=== PATIENT | male | born 1945 | race Caucasian/White ===

== ENCOUNTER → 2017-02-09 | Outpatient (CLI) | payer OTHER ==
[2017-02-09 14:34] LABS: HCT 42.5 % (39.0-53.0); HDW 2.55; HGB 13.9 gm/dL (13.0-17.5); MCH 28.8 pg (25.0-35.0); MCHC 32.6 g/dL (31.0-37.0); MCV 88.3 fL (80.0-100.0); Mean Platelet Volume 6.6; RBC 4.81 m/uL (4.30-5.90); RDW 14.1 % (11.5-15.5); WBC 7.3 k/uL (3.8-10.6)
[2017-02-09 14:43] LABS: Anion Gap 11 mmol/L; Blood Urea Nitrogen 25 mg/dL (9-20); Calcium 10.1 mg/dL (8.4-10.2); Carbon Dioxide 26 mmol/L (22-30); Chloride 103 mmol/L (98-107); Glucose 95 mg/dL (74-99); Non-African American GFR(MDRD) 50 (>60 ml/min/1.73 sqM); Potassium 5.5 mmol/L (3.5-5.1); Sodium 140 mmol/L (137-145)
== END | disposition home or self-care (01) ==
LOC: LABWHC1 14:17
PROVIDERS: ATTEND Internal Medicine Interventional Cardiology
DX: I25.10 Atherosclerotic heart disease of native coronary artery without angina pectoris (principal); I10 Essential (primary) hypertension
CPT/HCPCS: 36415; 80048; 85027

== ENCOUNTER 2017-02-12 07:23 | Day surgery (SDC) | payer OTHER ==
[2017-02-12] MEDS ORDERED: NITROGLYCERIN SL TABS 0.4 MG TAB SUBLINGUAL PRN (09:58)
[2017-02-12] MEDS ORDERED: SODIUM CHLORIDE 0.9% 1,000 ML in EMPTY BAG 1 BAG IV ONE (09:58)
[2017-02-12] MEDS ORDERED: ASPIRIN 325 MG TAB PO STA (09:58)
[2017-02-12] MEDS ORDERED: ALPRAZolam 0.25 MG TAB PO PRN (09:58)
[2017-02-12] MEDS ORDERED: MIDAZOLAM 2 MG/2 ML VIAL IV ONE (11:00)
[2017-02-12] MEDS ORDERED: diphenhydrAMINE 50 MG/ML 1 ML VIAL IVP ONE (11:01)
[2017-02-12] MEDS ORDERED: IV FLUID CONTINUATION 1,000 ML IV ONE ×2 (11:02→12:00)
[2017-02-12] MEDS ORDERED: LIDOCAINE 2% INJ 20 MG/ML SQ ONE (11:02)
[2017-02-12] MEDS ORDERED: NITROGLYCERIN SL TABS 0.4 MG TAB SUBLINGUAL ONE (11:06)
[2017-02-12] MEDS ORDERED: NOREPINEPHRIN 4 MG-0.9% NS PMX 4 MG/250 ML ML IV ONE (11:33)
[2017-02-12] MEDS ORDERED: IOHEXOL 350 MG/ML 100 ML BOTTLE INJ ONE ×3 (11:44→12:19)
[2017-02-12] MEDS ORDERED: RX INFO: IV CONTRAST WAS GIVEN 1 EACH MISC MISCELLANE PRN (12:02)
[2017-02-12] MEDS: SODIUM CHLORIDE 0.9% 1,000 ML IV SCH (15:41)
--- NOTE | 2017-02-12 20:02 | XR ---
EXAMINATION TYPE: XR chest 2V DATE OF EXAM: 02/12/2017 COMPARISON: NONE HISTORY: Preop cardiac surgery TECHNIQUE: Frontal and lateral views of the chest are obtained. FINDINGS: There is no heart failure nor confluent pneumonic infiltrate. Heart size is normal. Thorac ic aorta is atheromatous. There are no hilar masses. There is no pleural effusion. Bony thorax is int act. IMPRESSION: No active cardiopulmonary disease.
[2017-02-12] MEDS: MUPIROCIN 2% OINT 22 GM TUBE NASAL SCH (20:16)
[2017-02-12 20:42] VITALS: BMI 24.0
--- NOTE | 2017-02-12 23:23 | CC ---
DATE OF SERVICE: 02/12/2017 PROCEDURE: Left heart catheterization, coronary angiography. PERFORMED BY: Dr. Sandra Avila CLINICAL INFORMATION: Mr. 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 He has autonomic dysfunction, has been on Midodrine. He has hypertension and hypercholesterolemia. He has been having symptoms suggestive of angina. He was scheduled to have an arch study at [facility] because of bilateral carotid disease, and he used to be under the care of Dr. Wilson and then went on to see a surgeon in the [facility] area. Because of symptoms of angina, I advised coronary angiography and requested Dr. Spivey to perform selective carotid injections as well. He was brought in for the procedure electively, orally hydrated as well as with IV, and brought in for the procedure. PROCEDURE NOTE: Under local anesthesia and strict aseptic precautions, a 6 Macedonian introducer was placed in the right femoral artery. Using standard Bandar catheters, I performed coronary angiography, and a pigtail catheter was used to check LV pressures. Left ventriculogram was not performed. The sheath was left. Patient developed some hypotension requiring some IV fluids and transient use of Levophed. Patient does have autonomic dysfunction and does have episodes of hypotension. Results were then discussed with the patient and family. CARDIAC CATHETERIZATION FINDINGS: The left ventricular end-diastolic pressure was 8 mmHg. There was no gradient across the aortic valve. CORONARY ANGIOGRAPHIC FINDINGS RIGHT CORONARY ARTERY: Dominant vessel, moderately calcified. It has a 40% proximal and a 40% to 50% mid lesion; distally bifurcates into larger PLV, smaller PDA, both of which supply a fair amount of myocardium. Calcified RCA. Moderate noncritical disease. LEFT MAIN CORONARY ARTERY. There is a question of ostial disease, but on multiple angiograms I do not see significant ostial disease. But distally there is about a 40% narrowing of the left main and it bifurcates into LAD and circumflex. There is calcification in the left main. It bifurcates into LAD and circumflex. LEFT ANTERIOR DESCENDING CORONARY ARTERY. This is a good-caliber vessel, extends along the anterior wall, moderate to heavy calcification proximally with 70% lesion, and after the diagonal branch there is another 70% lesion. The diagonal itself has an 80% lesion. LAD runs all the way to the apex, has mild irregularities throughout, gives off septal and diagonal branches. The proximal LAD has a 70% calcified lesion. Mid LAD has another 70% lesion. Diagonal has an 80% lesion. LEFT POSTERIOR CIRCUMFLEX CORONARY ARTERY: Technically a non-dominant vessel. Gives off a single first obtuse marginal that has a 90% stenosis. The main circumflex has a 50% to 60% narrowing, heavy calcification in the proximal portion noted. Second obtuse marginal is also of good caliber and distribution and graftable. LEFT VENTRICULOGRAM: This was not performed. FINAL IMPRESSION: This patient has a right-dominant system, normal filling pressures, a 70% proximal in mid LAD and diagonal has an 80% lesion. Circumflex has a first obtuse marginal lesion of 90% and second obtuse marginal has about a 60% lesion. Heavily calcified coronary arteries are noted. LV pressures are normal, but LV gram was not performed. RECOMMENDATIONS: I am recommending aortocoronary bypass surgery with a graft to LAD, diagonal, first and second obtuse marginal branches, possibly to the right coronary artery. Patient will have an arch study by Dr. Spivey. I used the least amount of contrast. He was well hydrated, and he will be hydrated after the procedure as well. Results were discussed with the patient and family. I also spoke to Dr. Dela Cruz. Moderate conscious sedation was provided for a total duration of 45 minutes. Patient was monitored closely with a combination of Versed and Benadryl. He tolerated the procedure well and there was transient hypotension addressed with a transient use of Levophed. Patient's pressure normalized and he went on to have an arch study.
--- NOTE | 2017-02-12 23:46 | PCN ---
DATE OF PROCEDURE: 02/12/2017 PERFORMING PHYSICIAN: Yaniv Spivey M.D., [employer]. PROCEDURES PERFORMED: 1. Aortic arch angiogram. 2. Bilateral carotid angiogram. INDICATION: This is a pleasant 71-year-old gentleman who sees Dr. Sandra Avila as an outpatient. He was found to have carotid disease by carotid duplex study. The procedure today is for better clarification. APPROACH: Right common femoral artery. COMPLICATIONS: None. LEVEL OF SEDATION: Moderate. PROCEDURE DESCRIPTION: I did these procedures after Dr. Avila did heart catheterization on this gentleman. Please refer to the diagnostic heart catheterization for access. LEVEL OF SEDATION: Moderate, with sedation length of 25 minutes. PROCEDURE DESCRIPTION: After diagnostic heart catheterization was performed by Dr. Sandra Avila, I was asked to perform an carotid angiogram on the patient. At that point, I advanced a 6 Zimbabwean pigtail catheter over an 0.035 Advantage wire to the aortic root. I did an aortic root angiogram using the 6 Zimbabwean pigtail catheter and using a power injection. After that I did selective bilateral carotid angiogram. Selective right carotid angiogram was performed using JB2 catheter, and selective left carotid angiogram was performed using a Hannon catheter. The procedure was completed without any complication. SELECTIVE ARCH AND CAROTID ANGIOGRAM: 1. The aortic arch is a type II aortic arch. It gives rise to the innominate artery, left carotid and left subclavian. 2. Right carotid system. The right common carotid artery appeared to be angiographically normal. The right internal carotid artery appeared to have a lesion that seemed to be in the range of 70% to 80%. The left external carotid artery appeared to have mild disease only. 3. Left carotid system. The left common carotid artery appeared to have disease in the range of 50%. The left internal carotid artery has another lesion that seemed to be in the range of 50%. The left external carotid artery appeared to be angiographically normal. CONCLUSION: 1. Type II aortic arch. 2. Severe disease involving the right internal carotid artery. 3. Intermediate disease involving the left common carotid artery and left internal carotid artery. POST-PROCEDURE MANAGEMENT: 1. At this point, maximize medical treatment. 2. The patient will need to have revascularization down the line either before or after the open heart surgery.
[2017-02-13 05:35] VITALS: RESP 17
[2017-02-13] MEDS: SODIUM CHLORIDE 0.9% 1,000 ML IV SCH (05:54)
[2017-02-13 06:19] LABS: Basophils % (A) 1 %; CH 29.8; Eosinophils # (A) 0.8 k/uL (0-0.7); Eosinophils % (A) 12 %; HCT 37.6 % (39.0-53.0); HDW 2.69; HGB 12.7 gm/dL (13.0-17.5); Luc # (Auto) 0.18; Luc % (Auto) 3; Lymphocytes # (A) 1.3 k/uL (1.0-4.8); Lymphocytes % (A) 19 %; MCH 28.9 pg (25.0-35.0); MCHC 33.9 g/dL (31.0-37.0); MCV 85.5 fL (80.0-100.0); Mean Platelet Volume 6.6; Monocytes # (A) 0.3 k/uL (0-1.0); Monocytes % (A) 5 %; Neutrophils % (A) 61 %; RDW 13.6 % (11.5-15.5); WBC 6.6 k/uL (3.8-10.6); WBC (Perox) 7.01
[2017-02-13] MEDS ORDERED: LEVOTHYROXINE 112 MCG TAB PO SCH (06:30)
[2017-02-13 06:32] LABS: ALT 43 U/L (21-72); AST 25 U/L (17-59); Alkaline Phosphatase 52 U/L (38-126); Anion Gap 9 mmol/L; Blood Urea Nitrogen 22 mg/dL (9-20); Calcium 9.3 mg/dL (8.4-10.2); Carbon Dioxide 26 mmol/L (22-30); Chloride 103 mmol/L (98-107); Cholesterol 113 mg/dL (<200); Glucose 89 mg/dL (74-99); HDL Cholesterol 50 mg/dL (40-60); Magnesium 1.7 mg/dL (1.6-2.3); Non-African American GFR(MDRD) 50 (>60 ml/min/1.73 sqM); Potassium 4.6 mmol/L (3.5-5.1); Sodium 138 mmol/L (137-145); Total Bilirubin 0.4 mg/dL (0.2-1.3); Total Protein 5.9 g/dL (6.3-8.2); Triglycerides 142 mg/dL (<150)
[2017-02-13 07:33] LABS: INR 1.2 (<1.1); Partial Thromboplastin Time 25.8 sec (22.0-30.0); Prothrombin Time 11.6 sec (9.0-12.0)
[2017-02-13 07:57] LABS: Hepatitis B Core IgM Index 0.02; Hepatitis B Surface Ag Index 0.04; Hepatitis C Virus IgG Ab Negative (Negative); Hepatitis C Virus IgG Index 0.05
--- NOTE | 2017-02-13 07:57 | P.GSCN ---
History of Present Illness Consult date: 02/12/17 Reason for Consult: coronary artery disease, need for surgical revascularization. Requesting physician: Morgan Avila History of present illness: This 71-year-old gentleman has been followed by Dr. LUIGI Avila. He is also under the care of a vascular surgeon in [place] for bilateral carotid artery disease. He was scheduled to have an arch study, however he began having increasing chest discomfort suggestive of angina. Patient was admitted for heart catheterization which demonstrated RCA with 40% proximal and 40-50% mid lesion,left main with 40% narrowing, proximal LAD with 70% lesion with an additional 70% lesion after the diagonal branch, diagonal has 80% lesion, first obtuse marginal with 90% stenosis, and main circumflex with 50-60% narrowing. Arch study done immediately following the heart catheterization demonstrated a type II aortic arch, severe disease involving the right internal carotid artery , and intermediate disease involving the left common carotid artery and left internal carotid artery.Dr. Dela Cruz from cardiothoracic surgery was consulted for possible surgical revascularization. Review of Systems 14 point review of systems was completed and was negative except as noted. - Cardiovascular Reports as per HPI Past Medical History Past Medical History: Cancer, Chest Pain / Angina, Hearing Disorder / Deafness, Hyperlipidemia, Hypertension Additional Past Medical History / Comment(s): throat cancer stage 4 2005 with chemo and radiation History of Any Multi-Drug Resistant Organisms: None Reported Past Surgical History: Heart Catheterization, Hernia Repair Additional Past Surgical History / Comment(s): bilateral shoulder replacement, three sinus surgical procedures-polypectomy. radical neck dissection post tonsillar cancer Past Anesthesia/Blood Transfusion Reactions: No Reported Reaction Past Psychological History: No Psychological Hx Reported Smoking Status: Former smoker Past Alcohol Use History: Occasional Past Drug Use History: None Reported - Past Family History Father Family Medical History: Cancer Mother Family Medical History: Congestive Heart Failure (CHF) Medications and Allergies Home Medications Medication Instructions Recorded Confirmed Type Aspirin 162 mg PO DAILY 02/12/17 02/12/17 History Atorvastatin [Lipitor] 20 mg PO DAILY 02/12/17 02/12/17 History Fluticasone Nasal [place] [Flonase 1 spray EA NOSTRIL DAILY 02/12/17 02/12/17 History Nasal [place]] Levothyroxine Sodium [Synthroid] 112 mcg PO ONCE 02/12/17 02/12/17 History Losartan [Cozaar] 50 mg PO DAILY 02/12/17 02/12/17 History Midodrine HCl [ProAmatine] 5 mg PO ONCE 02/12/17 02/12/17 History amLODIPine BESYLATE [Norvasc] 5 mg PO DAILY 02/12/17 02/12/17 History Allergies Allergy/AdvReac Type Severity Reaction Status Date / Time No Known Allergies Allergy Unverified 07/27/15 08:15 Surgical - Exam Vital Signs Pulse Resp BP Pulse Ox 70 20 157/91 98 02/12/17 09:03 02/12/17 09:03 02/12/17 09:03 02/12/17 09:03 - General well developed, well nourished, no distress, no pain - Eyes PERRL, normal ocular movement - ENT no hearing loss - Neck trachea midline - Respiratory respirations even, nonlabored. Remains on room air with oxygen saturation 97%. Able to achieve 2750 mL on his incentive spirometry. normal expansion, normal respiratory effort, clear to auscultation - Cardiovascular Rhythm: regular Heart Sounds: normal: S1, S2 - Abdomen Abdomen: soft, non tender, bowel sounds - Genitourinary deferred - Rectum deferred - Integumentary no rash, no growths - Neurologic normal coordination, normal sensation - Musculoskeletal normal gait - Psychiatric oriented to time, oriented to person, oriented to place, speech is normal, memory intact Results - Labs 02/13/17 05:22 02/13/17 05:22 Abnormal Lab Results - Last 24 Hours (Table) 02/13/17 02/13/17 Range/Units 05:22 05:22 Hgb 12.7 L (13.0-17.5) gm/dL Hct 37.6 L (39.0-53.0) % Eosinophils # 0.8 H (0-0.7) k/uL BUN 22 H (9-20) mg/dL Creatinine 1.40 H (0.66-1.25) mg/dL Total Protein 5.9 L (6.3-8.2) g/dL Microbiology - Last 24 Hours (Table) 02/12/17 16:00 Nasal Screen MRSA/MSSA (TAM) - Preliminary Nasal Swab Diabetes panel 02/13/17 Range/Units 05:22 Sodium 138 (137-145) mmol/L Potassium 4.6 (3.5-5.1) mmol/L Chloride 103 (98-107) mmol/L Carbon Dioxide 26 (22-30) mmol/L BUN 22 H (9-20) mg/dL Creatinine 1.40 H (0.66-1.25) mg/dL Glucose 89 (74-99) mg/dL Calcium 9.3 (8.4-10.2) mg/dL AST 25 (17-59) U/L ALT 43 (21-72) U/L Alkaline Phosphatase 52 (38-126) U/L Total Protein 5.9 L (6.3-8.2) g/dL Albumin 3.8 (3.5-5.0) g/dL Triglycerides 142 (<150) mg/dL HDL Cholesterol 50 (40-60) mg/dL Thyroid panel 02/13/17 Range/Units 05:22 TSH 3.420 (0.465-4.680) mIU/L Calcium panel 02/13/17 Range/Units 05:22 Calcium 9.3 (8.4-10.2) mg/dL Albumin 3.8 (3.5-5.0) g/dL Pituitary panel 02/13/17 Range/Units 05:22 Sodium 138 (137-145) mmol/L Potassium 4.6 (3.5-5.1) mmol/L Chloride 103 (98-107) mmol/L Carbon Dioxide 26 (22-30) mmol/L BUN 22 H (9-20) mg/dL Creatinine 1.40 H (0.66-1.25) mg/dL Glucose 89 (74-99) mg/dL Calcium 9.3 (8.4-10.2) mg/dL TSH 3.420 (0.465-4.680) mIU/L Adrenal panel 02/13/17 Range/Units 05:22 Sodium 138 (137-145) mmol/L Potassium 4.6 (3.5-5.1) mmol/L Chloride 103 (98-107) mmol/L Carbon Dioxide 26 (22-30) mmol/L BUN 22 H (9-20) mg/dL Creatinine 1.40 H (0.66-1.25) mg/dL Glucose 89 (74-99) mg/dL Calcium 9.3 (8.4-10.2) mg/dL Total Bilirubin 0.4 (0.2-1.3) mg/dL AST 25 (17-59) U/L ALT 43 (21-72) U/L Alkaline Phosphatase 52 (38-126) U/L Total Protein 5.9 L (6.3-8.2) g/dL Albumin 3.8 (3.5-5.0) g/dL - Imaging Chest x-ray: image reviewed EKG: image reviewed Additional studies: carotid Doppler, lower extremity vein mapping, PFTs reviewed. Assessment and Plan (1) Coronary artery disease Status: Acute (2) Carotid artery disease Status: Acute (3) Hypertension Status: Acute (4) Hyperlipidemia Status: Acute (5) Tobacco dependence in remission Status: Acute (6) History of cancer tonsil Status: Acute (7) History of syncope Status: Acute Plan: 1. Continue aspirin, Lipitor, Norvasc, Cozaar, beta lizz. 2. Preoperative testing completed and reviewed. 3. Preoperative teaching initiated, reinforced. 4. Encourage incentive spirometry use preoperatively. 5. Anticipate coronary artery revascularization soon. Will need carotid artery revascularization as well. 6. Will develop a plan, determine a date for surgery with the patient. Patient will be discharged to return for surgery per Dr. LUIGI Avila. Thank you Dr. Avila for this consult. We look forward to working with you the care of your patient. Time with Patient: Greater than 30
[2017-02-13] MEDS: MUPIROCIN 2% OINT 22 GM TUBE NASAL SCH (08:26)
[2017-02-13 08:31] LABS: Hemoglobin A1C 5.5 % (4.2-6.1)
[2017-02-13 08:36] VITALS: TEMP 97.9
[2017-02-13] MEDS ORDERED: amLODIPine 5 MG TAB PO SCH (09:00)
[2017-02-13] MEDS ORDERED: ATORVASTATIN 20 MG TAB PO SCH (09:00)
[2017-02-13] MEDS ORDERED: FLUTICASONE 50MCG/SPRAY NASAL 16GM EA NOSTRIL SCH (09:00)
[2017-02-13] MEDS ORDERED: ASPIRIN 81 MG CHEW PO SCH (09:00)
[2017-02-13] MEDS ORDERED: LOSARTAN 50 MG TAB PO SCH (09:00)
[2017-02-13 09:03] LABS: Appearance,Urine Clear (Clear); Bilirubin,Urine Negative (Negative); Glucose,Urine (UA) Negative (Negative); Ketones,Urine Negative (Negative); Leukocyte Esterase,Urine Negative (Negative); Nitrite,Urine Negative (Negative); Protein,Urine Negative (Negative); Specific Gravity,Urine 1.009 (1.001-1.035); UA Billing (MACRO vs. MICRO) CHEM; Urobilinogen,Urine <2.0 mg/dL (<2.0)
--- NOTE | 2017-02-13 10:10 | ECHOF ---
Referral Reason:Assess LV function MEASUREMENTS -------- HEIGHT: 175.3 cm WEIGHT: 73.5 kg BP: 157/91 RVIDd: 3.0 cm (< 3.3) IVSd: 1.3 cm (0.6 - 1.1) LVIDd: 4.6 cm (3.9 - 5.3) LVPWd: 1.3 cm (0.6 - 1.1) IVSs: 1.9 cm LVIDs: 2.6 cm LVPWs: 1.9 cm Ao Diam: 3.7 cm (2.0 - 3.7) AV Cusp: 1.9 cm (1.5 - 2.6) LA Diam: 4.1 cm (2.7 - 3.8) MV EXCURSION: 19.436 mm (> 18.000) MV EF SLOPE: 127 mm/s (70 - 150) EPSS: 0.3 cm RAP: 5.00 mmHg RVSP: 21.72 mmHg FINDINGS -------- Sinus rhythm. This was a technically adequate study. This was a technically difficult study with suboptimal apical views. Pt. not able to turn due to recent heart cath. There is mild concentric left ventricular hypertrophy. Overall left ventricular systolic function is normal with, an EF between 60 - 65 %. The right ventricle is normal in size and function. Normal LA size by volume 22+/-6 ml/m2. The right atrium is normal in size. The aortic valve is trileaflet, and appears structurally normal. No aortic stenosis or regurgitation. The mitral valve leaflets are mildly thickened. No mitral regurgitation. Trace tricuspid regurgitation present. There is no evidence of pulmonary hypertension. The right ventricular systolic pressure, as measured by Doppler, is 21.72mmHg. The pulmonic valve was not well visualized. The aortic root size is normal. Normal inferior vena cava with normal inspiratory collapse consistent with estimated right atrial pressure of 5 mmHg. The pericardium is normal. There is no pericardial effusion. CONCLUSIONS -------- 1. Sinus rhythm. 2. Trace tricuspid regurgitation present. 3. There is no evidence of pulmonary hypertension. 4. The right ventricular systolic pressure, as measured by Doppler, is 21.72mmHg. 5. The pulmonic valve was not well visualized. 6. The aortic root size is normal. 7. There is no pericardial effusion. 8. This was a technically difficult study with suboptimal apical views. 9. Pt. not able to turn due to recent heart cath. 10. There is mild concentric left ventricular hypertrophy. 11. Overall left ventricular systolic function is normal with, an EF between 60 - 65 %. 12. Normal LA size by volume 22+/-6 ml/m2. 13. The aortic valve is trileaflet, and appears structurally normal. No aortic stenosis or regurgitation. 14. The mitral valve leaflets are mildly thickened. 15. No mitral regurgitation. LICENSED HOME INSPECTOR: Griffin Yeh RDCS
[2017-02-13 12:35] VITALS: BP 136/81; PULSE 73
--- NOTE | 2017-02-13 15:13 | CONS ---
DATE OF CONSULTATION: This is a 71-year-old gentleman who is apparently going to have multivessel bypass grafting next week. He had a catheterization yesterday. He has a history of hypertension, hyperlipidemia, hypothyroidism. The patient apparently is to be discharged today. He did have a breathing test. His lung functions are excellent and he will do well with surgery. He was a pipe smoker in the past. He apparently has a history of head and neck cancer in the past as well. No allergies. He is doing well. Feeling well. Today answered a number questions for him about the surgery today. He understands he will be coming back from the operating room on ventilator. He realizes that he will not be able to interact initially with anybody but I did explain that as soon as his vital signs are stable and soon as his blood gases and weaning parameters are good we would extubated from mechanical ventilation. He was with his in the room. 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 I believe he is a retired currently. Past medical history is positive for hypertension, hyperlipidemia, hypothyroidism. Surgical history is remote. Social history is positive for previous pipe tobacco use. Did not inhale. No cigarettes. Denies any illicit drug use. Occupational history is that he worked at a [employer] company. Family history is noncontributory. Surgical history is primarily remote as I mentioned. His home medications included amlodipine, aspirin, losartan, atorvastatin, midodrine, levothyroxine, Flonase. No allergies to medications. REVIEW OF SYSTEMS: A twelve-point review of systems is unremarkable. He was evaluated for by cardiac catheterization initially for chest discomfort. Current vital signs are stable. Temperature is 97.9, heart rate 78, respiratory rate 17, blood pressure 103/62, mean 75, room air saturation 97%. Appears in no acute distress. HEENT examination is grossly unremarkable. NECK: Supple. Cardiovascular examination reveals regular rhythm and rate. S1, S2 normal. Lungs reveal clear breath sounds. Breath sounds equal. No wheezes, rhonchi or crackles. Abdomen is soft. Bowel sounds are heard. Extremities are intact. No cyanosis, clubbing, or edema. Skin without rash. Neurologic examination is nonfocal. The spirometry is reviewed. I signed off on it. His FEV1 is 93% of predicted. Unfortunately, the spirometry does not give the RV/TLC ratio or MVV. Based on the FEV1 alone, he is going to do very well post surgery. Medications are reviewed. He got the incentive spirometer in front of him and he knows how to use it. ASSESSMENT: 1. Multivessel coronary artery disease with anticipated bypass grafting next week. 2. History of hypertension. 3. Hypothyroidism. 4. Hyperlipidemia. 5. No history of any intrinsic pulmonary disease. PLAN: Will continue to follow. The patient will have surgery sometime next week. At that time he will be seeing my partner Dr. Castaneda. The patient will be brought back from the operating room on updrafts and also on the ventilator. Once extubated will encourage incentive spirometry. Additional recommendations and suggestions are forthcoming. Prognosis is guarded.
--- NOTE | 2017-02-14 07:50 | DS ---
DATE OF ADMISSION: 02/12/2017 DATE OF DISCHARGE: 02/13/2017 DIAGNOSES: 1. Unstable angina. 2. Bilateral carotid disease with right more than left. 3. Hypertension. 4. Autonomic dysfunction. 5. Hypercholesterolemia. Mr. Tenzin Burgos was brought into the hospital electively for a cardiac catheterization and an arch study. Both of these studies were performed yesterday uneventfully. The least amount of contrast was used. He had mild renal dysfunction. He was appropriately hydrated orally and by IV. His cardiac catheterization revealed significant proximal and mid LAD lesion as well as a diagonal lesion and a circumflex marginal lesion. Right coronary artery had a 40% to 45% calcified lesion and this was a dominant vessel. I recommended aortocoronary bypass surgery with graft to the LAD, diagonal, first and second obtuse marginal branches of circumflex. There was heavy calcification in the coronary arteries. Patient also had arch study performed by Dr. Spivey, which revealed a significant lesion in the right internal carotid. However, since he is asymptomatic from the carotid standpoint and has significant anginal symptoms with coronary disease, I am recommending aortocoronary bypass surgery first. Dr. Dela Cruz has evaluated the patient and he will make arrangements for surgery within the next one week. This morning, the patient is doing well. His right groin is clean and dry. Blood pressure is 110/70, pulse rate is 64 per minute regular. There is no JVD or carotid bruit. S1, S2 with a short systolic murmur audible. Lungs are clear. Abdomen and lower extremity exam unchanged. Right groin is clean and dry. Laboratory data is good. I am recommending that we discontinue Nadolol, use Lopressor 12.5 mg b.i.d., decrease aspirin to 81 mg daily and patient can be discharged whenever he is okayed by Dr. Dela Cruz and a surgery date is fixed. Advised limited activity and not to do any strenuous activity. Carotid intervention will be performed at a later date. Patient at the time of my evaluation is asymptomatic and doing well and I have discussed with him the above outlined plan.
[2017-02-14] MEDS ORDERED: METOPROLOL TARTRATE 25 MG TAB PO SCH (09:00)
--- NOTE | 2017-02-21 16:26 | P.VSCSTY ---
Greater Saphenous Vein Mapping This is bilateral lower extremity greater saphenous vein mapping. Date of service 02/12/2017 Vein quality and ultrasound appearance normal. Vein size groin right 5.0 x 5.4 groin left 5.9 x 6.2 High thigh right 3.9 x 3.5 high thigh left 5.2 x 5.2 Mid thigh right 3.2 x 4.8 mid thigh left 3.5 x 3.7 Above-knee right 3.4 x 4.0 above- knee left 2.8 x 3.3 Below knee right 2.8 x 3.5 below-knee left 2.7 x 3.0 Mid calf right 2.3 x 3.6 mid calf left 2.6 x 2.3 Ankle right 1.9 x 2.9 ankle left 1.9 x 2.4 Impression usable bilateral greater saphenous vein. Ankles both a bit small..
== END 2017-02-13 13:23 | disposition home or self-care (01) ==
LOC: CATHCVL 07:23 → 6SEL 12:20 → CATHCVL 02-13 13:23
PROVIDERS: ATTEND Internal Medicine Interventional Cardiology
DX: I25.110 Atherosclerotic heart disease of native coronary artery with unstable angina pectoris (principal); I65.23 Occlusion and stenosis of bilateral carotid arteries; I12.9 Hypertensive chronic kidney disease with stage 1 through stage 4 chronic kidney disease, or unspecified chronic kidney disease; N18.9 Chronic kidney disease, unspecified; E78.00 Pure hypercholesterolemia, unspecified; R55 Syncope and collapse; R94.31 Abnormal electrocardiogram [ECG] [EKG]; I07.1 Rheumatic tricuspid insufficiency; F45.8 Other somatoform disorders; E78.5 Hyperlipidemia, unspecified; E03.9 Hypothyroidism, unspecified; Z85.89 Personal history of malignant neoplasm of other organs and systems; Z92.21 Personal history of antineoplastic chemotherapy; Z92.3 Personal history of irradiation; Z86.73 Personal history of transient ischemic attack (TIA), and cerebral infarction without residual deficits; H91.90 Unspecified hearing loss, unspecified ear; F17.291 Nicotine dependence, other tobacco product, in remission; Z79.82 Long term (current) use of aspirin; Z79.899 Other long term (current) drug therapy
CPT/HCPCS: 94150; 93306; 93458; 36222; 84481; 83880; 80061; 80053; 80074; 84443; 83036; 83735; 85025; 85610; 85730; 81003; 87070; 87086; 71020; 93970; 99152; 99153 ×6; C1760; C1769 ×3; C1894; J2001; J2250; J1200; Q9967

== ENCOUNTER → 2017-03-13 | Outpatient (CLI) | payer OTHER ==
[2017-03-13 09:59] LABS: CH 28.9; CHCM 33.2; HCT 41.9 % (39.0-53.0); HDW 2.63; HGB 13.6 gm/dL (13.0-17.5); MCH 28.3 pg (25.0-35.0); MCHC 32.4 g/dL (31.0-37.0); MCV 87.4 fL (80.0-100.0); Mean Platelet Volume 6.8; WBC 7.7 k/uL (3.8-10.6)
[2017-03-13 10:07] LABS: Calcium 9.9 mg/dL (8.4-10.2); Magnesium 1.7 mg/dL (1.6-2.3); Potassium 4.7 mmol/L (3.5-5.1); Total Bilirubin 0.5 mg/dL (0.2-1.3); Total Protein 6.8 g/dL (6.3-8.2)
--- NOTE | 2017-03-21 14:39 | P.ARTDOP ---
Arterial Doppler LOWER EXTREMITY ARTERIAL DOPPLER: DATE OF SERVICE: 03/13/2017 Reason for study: Pre-CABG. Doppler waveforms: Multiphasic bilaterally throughout. Pulse volume recording: []. Pressure gradients: Mild bilateral gradients Ankle-brachial indices: 0.92 on the right and 0.85 on the left. Toe pressures: 96 on the right, 87 on the left Impression: Suspect mild bilateral SFA disease. Perfusion pressures quite adequate for healing..
== END | disposition home or self-care (01) ==
LOC: RADUSWWP 08:16
PROVIDERS: ATTEND Surgery
DX: I25.10 Atherosclerotic heart disease of native coronary artery without angina pectoris (principal); E78.5 Hyperlipidemia, unspecified; I10 Essential (primary) hypertension; Z86.73 Personal history of transient ischemic attack (TIA), and cerebral infarction without residual deficits; Z87.891 Personal history of nicotine dependence
CPT/HCPCS: 80053; 83735; 85027; 93922

== ENCOUNTER 2017-03-15 05:49 | Inpatient (IN) | payer OTHER ==
[~2017-03-15 05:49] MED LIST: ALBUMIN HUMAN 25% 50 ML IV ONE; ALBUMIN HUMAN 5% 500 ML IVPB ONE; ASPIRIN 325 MG TAB PO ONE; ATORVASTATIN 10 MG TAB PO ONE; CALCIUM CHLORIDE 100 MG/ML 10 ML SYRINGE IV ONE; CHLORHEXIDINE GLUCONATE 15 ML CUP MUCOUS MEM ONE; CLEVIDIPINE BUTYRATE 25 MG in EMPTY BAG 1 BAG IV ONE; HEPARIN SODIUM 1,000 UN/ML (10ML VL) IV ONE; HEPARIN SODIUM,PORCINE 5,000 UNIT in SODIUM CHLORIDE 0.9% 500 ML IV ONE; INSULIN REGULAR 100 UNIT in SODIUM CHLORIDE 0.9% 100 ML IV ONE; LACTATED RINGERS 1,000 ML IV ONE; LACTATED RINGERS 1,000 ML IV SCH; LIDOCAINE 1% 20 ML VIAL (10MG/ML) FOR IV START INTRADERMA PRN; MAGNESIUM SULFATE MG 500 MG/ML VIAL IV ONE; METOPROLOL TARTRATE 12.5 MG TAB PO ONE; MUPIROCIN 2% OINT 22 GM TUBE NASAL ONE; NITROGLYCERIN-D5W PMX 25 MG/250 ML BTL IV ONE; NOREPINEPHRIN 4 MG-0.9% NS PMX 4 MG/250 ML ML IV ONE; PAPAVERINE 360 MG in SODIUM CHLORIDE 0.9% 90 ML IV ONE; PHENYLEPHRINE 40 MG in SODIUM CHLORIDE 0.9% 250 ML IV ONE; PHENYLEPHRINE-0.9% NACL SYG 1 MG/10 ML SYRINGE IV ONE; PROPOFOL 1,000 MG/100 ML VIAL IV ONE; PROTAMINE SULFATE 10 MG/ML 25 ML VIAL IV ONE; PROTAMINE SULFATE 250 MG in EMPTY BAG 1 BAG IV ONE; SODIUM BICARB 8.4% 50 ML SYR (1 MEQ/ML) IV ONE; SODIUM CHLORIDE 0.9% 1,000 ML IV ONE; ceFAZolin 1,000 MG in SODIUM CHLORIDE 0.9% IRRIGATIO 1,000 ML IRRIGATION ONE; ceFAZolin 2,000 MG in SODIUM CHLORIDE 0.9% 30 ML IVPB ONE
[2017-03-15] MEDS ORDERED: HEPARIN SODIUM,PORCINE 5,000 UNIT/ML 1 ML VIAL ONE (08:17)
[2017-03-15] MEDS ORDERED: VECURONIUM 10 MG VIAL IV ONE (08:17)
[2017-03-15] MEDS ORDERED: ePHEDrine 50 MG/ML 1 ML AMP ONE (08:17)
[2017-03-15] MEDS ORDERED: SUCCINYLCHOLINE CHLORIDE 100 MG/5 ML SYR IV ONE (08:17)
[2017-03-15] MEDS ORDERED: fentaNYL (PF) 50 MCG/ML 2 ML AMP ONE (08:17)
[2017-03-15] MEDS ORDERED: HEPARIN SODIUM,PORCINE 10,000 UNIT/ML 1 ML VIAL ONE (08:17)
[2017-03-15] MEDS ORDERED: SODIUM CHLORIDE 0.9% IRRIG 1,000 ML BTL IRRIGATION ONE (08:17)
[2017-03-15] MEDS ORDERED: PHENYLEPHRINE-0.9% NACL SYG 1 MG/10 ML SYRINGE ONE (08:17)
[2017-03-15] MEDS ORDERED: PROPOFOL 10 MG/ML 20 ML VIAL IV ONE (08:17)
[2017-03-15] MEDS ORDERED: MAGNESIUM SULFATE 4 MEQ/ML 2 ML VIAL ONE (08:17)
[2017-03-15] MEDS ORDERED: PROTAMINE SULFATE 10 MG/ML 5 ML VIAL IV ONE (08:17)
[2017-03-15] MEDS ORDERED: MIDAZOLAM 2 MG/2 ML VIAL ONE (08:17)
[2017-03-15] MEDS ORDERED: ALBUMIN HUMAN 5% 500 ML VIAL IVPB ONE (08:17)
[2017-03-15] MEDS ORDERED: fentaNYL (PF) 50 MCG/ML 50 ML VIAL ONE (08:17)
[2017-03-15 09:15] LABS: Glucose,Whole Blood 96 mg/dL (75-99)
[2017-03-15 10:17] LABS: Glucose,Whole Blood 122 mg/dL (75-99)
[2017-03-15 10:57] LABS: Glucose,Whole Blood 120 mg/dL (75-99)
[2017-03-15 11:12] LABS: Glucose,Whole Blood 121 mg/dL (75-99)
[2017-03-15 12:07] LABS: Glucose,Whole Blood 147 mg/dL (75-99)
[2017-03-15 12:43] LABS: Glucose,Whole Blood 139 mg/dL (75-99)
[2017-03-15 13:16] LABS: Glucose,Whole Blood 120 mg/dL (75-99)
[2017-03-15 13:16] LABS: Glucose,Whole Blood 109 mg/dL (75-99)
[2017-03-15 13:16] LABS: Glucose,Whole Blood 107 mg/dL (75-99)
[2017-03-15 13:42] LABS: Glucose,Whole Blood 124 mg/dL (75-99)
[2017-03-15] MEDS: NITROGLYCERIN-D5W PMX 50 MG in DEXTROSE/WATER 1 250ML.BAG IV ONE ×3 (14:28→18:29)
[2017-03-15] MEDS ORDERED: PROPOFOL 1,000 MG/100 ML VIAL IV SCH (14:31)
[2017-03-15] MEDS ORDERED: ONDANSETRON 4 MG/2 ML VIAL IVP PRN (14:31)
[2017-03-15] MEDS ORDERED: CALCIUM GLUCONATE 2,000 MG in SODIUM CHLORIDE 0.9% 100 ML IVPB PRN (14:31)
[2017-03-15] MEDS ORDERED: INSULIN REGULAR 100 UNIT in SODIUM CHLORIDE 0.9% 100 ML IV SCH ×2 (14:31→18:45)
[2017-03-15] MEDS ORDERED: NOREPINEPHRINE 4 MG in SODIUM CHLORIDE 0.9% 250 ML IV SCH (14:31)
[2017-03-15] MEDS ORDERED: Phosphorus Replacement Protoco 1 EACH MISC MISCELLANE PRN (14:31)
[2017-03-15] MEDS ORDERED: Magnesium Replacement Protocol 1 EACH MISC MISCELLANE PRN (14:31)
[2017-03-15] MEDS ORDERED: BENZOCAINE/MENTHOL LOZENG 1 EACH LOZENGE MUCOUS MEM PRN (14:31)
[2017-03-15] MEDS ORDERED: METOCLOPRAMIDE 5 MG/ML 2 ML VIAL IVP PRN (14:31)
[2017-03-15] MEDS ORDERED: NITROGLYCERIN-D5W PMX 50 MG in DEXTROSE/WATER 1 250ML.BAG IV SCH (14:31)
[2017-03-15] MEDS ORDERED: Potassium Replacement Protocol 1 EACH MISC MISCELLANE PRN ×2 (14:31→19:37)
[2017-03-15 15:10] LABS: Glucose,Whole Blood 149 mg/dL (75-99)
--- NOTE | 2017-03-15 15:14 | XR ---
EXAMINATION TYPE: XR chest 1V portable DATE OF EXAM: 03/15/2017 HISTORY: Post Op CABG COMPARISON: 02/12/2017 TECHNIQUE: Single view of the chest is submitted. FINDINGS: Endotracheal tube, NG tube, SG catheter, mediastianal drains and left chest tube are appropriately pl aced. Post operative changes of CABG. No sizeable pneumothorax. Scattered Pleural-parencymal opacities may reflect atelectasis. The heart is not enlarged. IMPRESSION: 1. Post operative changes of CABG.
[2017-03-15 15:20] LABS: INR 1.7 (<1.2); Partial Thromboplastin Time 43.3 sec (22.0-30.0); Prothrombin Time 16.4 sec (9.0-12.0)
[2017-03-15] MEDS ORDERED: ALBUMIN HUMAN 5% 250 ML IVPB ONE (15:22)
[2017-03-15 15:26] LABS: Basophils % (A) 0 %; CH 30.2; CHCM 34.3; Eosinophils # (A) 0.3 k/uL (0-0.7); Eosinophils % (A) 6 %; HCT 20.3 % (39.0-53.0); HDW 2.84; Luc # (Auto) 0.03; Luc % (Auto) 1; Lymphocytes # (A) 0.7 k/uL (1.0-4.8); Lymphocytes % (A) 15 %; MCH 30.4 pg (25.0-35.0); MCHC 34.4 g/dL (31.0-37.0); MCV 88.3 fL (80.0-100.0); Mean Platelet Volume 8.5; Monocytes # (A) 0.1 k/uL (0-1.0); Monocytes % (A) 2 %; Neutrophils # (A) 3.6 k/uL (1.3-7.7); Neutrophils % (A) 77 %; WBC 4.7 k/uL (3.8-10.6); WBC (Perox) 4.92
[2017-03-15 15:31] LABS: Ionized Calcium 3.7 mg/dL (4.5-5.3)
[2017-03-15] MEDS: LACTATED RINGERS 1,000 ML IV SCH (15:38)
[2017-03-15] MEDS ORDERED: CALCIUM GLUCONATE 2,000 MG in SODIUM CHLORIDE 0.9% 100 ML IVPB ONE (15:41)
[2017-03-15] MEDS: IPRATROPIUM-ALBUTEROL 3 ML NEB INHALATION SCH ×2 (15:42→19:22)
[2017-03-15 15:44] LABS: ALT 18 U/L (21-72); AST 17 U/L (17-59); Alkaline Phosphatase 24 U/L (38-126); Anion Gap 8 mmol/L; Blood Urea Nitrogen 18 mg/dL (9-20); Calcium 6.7 mg/dL (8.4-10.2); Carbon Dioxide 23 mmol/L (22-30); Chloride 109 mmol/L (98-107); Glucose 125 mg/dL (74-99); Magnesium 1.4 mg/dL (1.6-2.3); Non-African American GFR(MDRD) >60 (>60 ml/min/1.73 sqM); Potassium 4.2 mmol/L (3.5-5.1); Sodium 140 mmol/L (137-145); Total Bilirubin 0.7 mg/dL (0.2-1.3); Total Protein 4.2 g/dL (6.3-8.2)
[2017-03-15 15:51] LABS: ABG Base Excess -1.7 mmol/L; ABG HCO3 23 mmol/L (21-25); ABG PCO2 42 mmHg (35-45); ABG PH 7.35 (7.35-7.45); ABG PO2 >400 mmHg (83-108); ABG TCO2 24 mmol/L (19-24)
[2017-03-15 16:03] LABS: Glucose,Whole Blood 156 mg/dL (75-99)
[2017-03-15] MEDS: ceFAZolin 2 GM in SODIUM CHLORIDE 0.9% 100 ML IVPB SCH ×2 (16:09→23:37)
[2017-03-15] MEDS: ALBUMIN HUMAN 5% 250 ML in EMPTY BAG 1 BAG IVPB PRN (16:48)
[2017-03-15 17:03] LABS: Glucose,Whole Blood 147 mg/dL (75-99)
[2017-03-15] MEDS: MORPHINE SULFATE 2 MG/ML SYRINGE IVP PRN ×3 (17:15→23:12)
[2017-03-15] MEDS: CLEVIDIPINE BUTYRATE 25 MG in EMPTY BAG 1 BAG IV SCH (17:30)
--- NOTE | 2017-03-15 18:03 | P.CNPUL ---
History of Present Illness Consult date: 03/15/17 Chief complaint: Coronary artery bypass surgery History of present illness: A 71-year-old male patient who is post coronary artery bypass surgery and I was asked to be involved in the critical care management and vent management. This patient was having increased chest discomfort typical of angina. The patient underwent cardiac catheterization and demonstrated 40% proximal RCA lesion 40-50 % mid RCA lesion, 40% narrowing in the left main, 70% disease in the proximal LAD and 70% diagonal branch, 80% diagonal branch, 90% first of diffuse marginal branch and 5060% in the circumflex. Our study was done and the patient showed to have severe disease involving the right internal carotid artery disease and intermediate disease involving the left common carotid and left internal carotid artery. He is known to have hypertension. Hyperlipidemia. The patient underwent off-pump coronary artery bypass surgery with CASTELLANOS to LAD, saphenous vein graft to diagonal, obtuse marginal and RCA. Currently intubated on a mechanical ventilator and sedated with Diprivan. His assist-control mode of ventilation at the rate of 12, tidal volume 500, FiO2 of 40% and a PEEP of 5. The patient immediate postoperative blood This showed a pH of 7.35 with a pCO2 of 42 and pO2 of 513 and based on that the FiO2 was dropped from 100% on to 40%. His saturation remains around 97%. Chest x-ray shows adequate expansion of both lungs without evidence of any pneumothorax. ET tube is in a good location. The patient has 2 mediastinal chest tubes and 1 pleural chest tube all of them were actively draining since his surgery and his drainage has slowed down over the past few hours. The patient required to be given a total of 2 units of packed RBC intraoperatively, 4 units of fresh frozen plasma and 5 platelet concentrates. The hemoglobin at this point is on 7.0 and the patient is receiving another unit of packed RBC. PA pressures around 30/12 and the cardiac index is 2.7. The patient has received 2, 5% albumin's drapes. Currently the patient is on clevidipine for blood pressure control and insulin drip. Producing adequate amount of urine output. Creatinine is at 1.1. Hemodynamically stable. Ionized calcium was low and the patient was given 2 g of calcium gluconate. Review of Systems ROS unobtainable: due to endotracheal tube Past Medical History Past Medical History: Cancer, Chest Pain / Angina, Hearing Disorder / Deafness, Hyperlipidemia, Hypertension, Renal Disease Additional Past Medical History / Comment(s): On a artery disease details discussed above, carotid artery disease details discussed above, throat cancer diagnosed back in 2006 post chemoradiation therapy, CVA, history of without any major deficits hypertension, hypothyroidism and morbid deafness, normal left ventricular function with an ejection fraction of 60-65% without evidence of any significant pulmonary hypertension or pericardial effusion no valvular abnormalities based on echocardiogram from 2017. History of Any Multi-Drug Resistant Organisms: None Reported Past Surgical History: Heart Catheterization, Hernia Repair Additional Past Surgical History / Comment(s): bilateral rotator cuff repair, three sinus surgical procedures-polypectomy. radical neck dissection post tonsillar cancer Past Anesthesia/Blood Transfusion Reactions: No Reported Reaction Smoking Status: Former smoker - Past Family History Father Family Medical History: Cancer Mother Family Medical History: Congestive Heart Failure (CHF) Medications and Allergies Home Medications Medication Instructions Recorded Confirmed Type Fluticasone Nasal [place] [Flonase 1 spray EA NOSTRIL DAILY 02/12/17 03/15/17 History Nasal [place]] Levothyroxine Sodium [Synthroid] 112 mcg PO DAILY 02/12/17 03/15/17 History Losartan [Cozaar] 50 mg PO DAILY 02/12/17 03/15/17 History Midodrine HCl [ProAmatine] 5 mg PO TID 02/12/17 03/15/17 History amLODIPine BESYLATE [Norvasc] 5 mg PO DAILY PRN 02/12/17 03/15/17 History Atorvastatin [Lipitor] 20 mg PO BID 03/13/17 03/15/17 History Butalb/Acetaminophen/Caffeine 1 - 2 tab PO Q4H PRN 03/13/17 03/15/17 History [Fioricet 50-325-40] Metoprolol Tartrate 25 mg PO BID 03/13/17 03/15/17 History Aspirin 325 mg PO BID 03/15/17 03/15/17 History Allergies Allergy/AdvReac Type Severity Reaction Status Date / Time No Known Allergies Allergy Verified 03/15/17 06:13 Physical Exam Vitals: Vital Signs Temp Pulse Pulse Resp BP BP BP 03/15/17 17:40 90 93/56 03/15/17 17:30 88 93/56 03/15/17 17:20 86 93/56 03/15/17 17:10 92 93/56 03/15/17 17:00 96 16 93/56 03/15/17 16:50 88 93/56 03/15/17 16:40 85 93/56 03/15/17 16:30 82 93/56 03/15/17 16:20 89 93/56 03/15/17 16:10 80 93/56 03/15/17 16:05 92.3 F L 77 12 117/55 03/15/17 16:04 83 03/15/17 16:00 77 16 93/56 03/15/17 15:50 78 82/55 03/15/17 15:42 84 03/15/17 15:40 85 82/55 03/15/17 15:30 80 82/55 03/15/17 15:20 77 03/15/17 15:10 03/15/17 15:00 78 14 03/15/17 14:54 81 03/15/17 14:25 92.7 F L 81 12 119/57 03/15/17 13:55 92.7 F L 75 12 95/48 03/15/17 06:10 96.4 F L 63 16 175/96 170/95 BP Pulse Ox 03/15/17 17:40 98 03/15/17 17:30 98 03/15/17 17:20 98 03/15/17 17:10 93 L 03/15/17 17:00 85 L 03/15/17 16:50 89 L 03/15/17 16:40 94 L 03/15/17 16:30 94 L 03/15/17 16:20 91 L 03/15/17 16:10 93 L 03/15/17 16:05 98 03/15/17 16:04 03/15/17 16:00 98 03/15/17 15:50 99 03/15/17 15:42 03/15/17 15:40 100 03/15/17 15:30 92 L 03/15/17 15:20 03/15/17 15:10 100 03/15/17 15:00 03/15/17 14:54 03/15/17 14:25 98 03/15/17 13:55 98 03/15/17 06:10 175/96 98 Intake and Output 03/15/17 03/15/17 03/15/17 06:59 14:59 22:59 Intake Total 1280 721 Output Total 4950 350 Balance -3670 371 Intake: IV 134 250 Calcium Gluconate 2,000 100 mg In Sodium Chloride 0.9 % 100 ml @ 100 mls/hr IVPB ONCE ONE Rx#: [id number] Lactated Ringers 1,000 ml 50 @ 50 mls/hr IV .Q20H [facility] Rx#:[id number] ceFAZolin 2 gm In Sodium 100 Chloride 0.9% 100 ml @ 100 mls/hr IVPB Q8HR [facility] Rx#:[id number] Blood Product 1146 471 Ffp 24 Cp2d Unit 209 [id number] Ffp 24 Cp2d Unit 178 [id number] Ffp 24 Cpd Unit 317 [id number] Ffp 24 Cpda Unit 0 [id number] Platelet Pheresis Acda1 0 293 Unit [id number] Rc As-1 Unit 310 [id number] Rc As-1 Unit 310 [id number] Rc As-1 Unit 0 [id number] Output: Chest Tube Drainage 200 Left Pleural 180 Mediastinal x 2 20 Gastric Drainage 0 Drainage 0 0 Left Calf 0 0 Right Medial Thigh 0 0 Urine 1500 150 Estimated Blood Loss 3450 ABP, PAP, CO, CI - Last 8 Hours Arterial Blood Pressure 115/50 Arterial Blood Pressure 111/48 Arterial Blood Pressure 119/49 Arterial Blood Pressure 141/58 Arterial Blood Pressure 38/38 Arterial Blood Pressure 153/69 Arterial Blood Pressure 145/61 Arterial Blood Pressure 137/57 Arterial Blood Pressure 139/62 Arterial Blood Pressure 123/58 Arterial Blood Pressure 108/55 Arterial Blood Pressure 94/45 Arterial Blood Pressure 135/61 Arterial Blood Pressure 130/5 Arterial Blood Pressure 88/47 Arterial Blood Pressure 164/77 Arterial Blood Pressure 95/50 Pulmonary Artery Pressure 24/13 Pulmonary Artery Pressure 24/13 Pulmonary Artery Pressure 24/12 Pulmonary Artery Pressure 26/13 Pulmonary Artery Pressure 29/15 Pulmonary Artery Pressure 28/15 Pulmonary Artery Pressure 27/14 Pulmonary Artery Pressure 27/11 Pulmonary Artery Pressure 26/14 Pulmonary Artery Pressure 23/13 Pulmonary Artery Pressure 18/9 Pulmonary Artery Pressure 18/9 Pulmonary Artery Pressure 21/10 Pulmonary Artery Pressure 21/9 Pulmonary Artery Pressure 22/11 Pulmonary Artery Pressure 21/8 Pulmonary Artery Pressure 25/14 Cardiac Output 5.1 Cardiac Output 5.1 Cardiac Output 5.1 Cardiac Output 5.1 Cardiac Output 5.1 Cardiac Output 5.1 Cardiac Output 5.1 Cardiac Output 5.1 Cardiac Output 5.1 Cardiac Output 5.1 Cardiac Output 7.1 Cardiac Output 7.1 Cardiac Output 7.1 Cardiac Output 7.1 Cardiac Output 7.1 Cardiac Output 7.1 Cardiac Output 7.1 Cardiac Index 2.7 Cardiac Index 3.7 Head exam was generally normal. There was no scleral icterus or corneal arcus. Mucous membranes were moist. Neck is supple and the patient has a right IJ Cordis. No neck stiffness. Pupils are equally reactive to light. No facial asymmetry. Orogastric and orotracheal tube are both in place. Lung sounds are diminished bilaterally otherwise clear. There is no wheezes or rhonchi early crackles. Heart sounds are regular, positive S1-S2, sternum stable clean and intact. The patient has 2 mediastinal and 1 left pleural chest tube.Abdominal exam revealed normal bowel sounds. The abdomen was soft, non-tender, and without masses, organomegaly, or appreciable enlargement of the abdominal aorta.Examination of the extremities revealed easily palpable radial, femoral and pedal pulses. There was no cyanosis, clubbing or edema. Neurologically the patient remains sedated. Results - Laboratory Findings CBC and BMP: 03/15/17 15:05 03/15/17 15:05 ABG ABG pH 7.35 (7.35-7.45) 03/15/17 15:28 ABG pCO2 42 mmHg (35-45) 03/15/17 15:28 ABG pO2 >400 mmHg (83-108) H 03/15/17 15:28 ABG O2 Saturation 100.0 % (94-97) H 03/15/17 15:28 PT/INR, D-dimer PT 16.4 sec (9.0-12.0) H 03/15/17 15:05 INR 1.7 (<1.2) H 03/15/17 15:05 Abnormal lab findings: Abnormal Labs 03/13/17 03/15/17 03/15/17 09:07 10:16 10:44 RBC Hgb Hct Plt Count Lymphocytes # PT INR APTT ABG pO2 ABG O2 Saturation Chloride Glucose POC Glucose (mg/dL) 122 H 120 H Calcium Ionized Calcium [place] Magnesium ALT Alkaline Phosphatase Total Protein Albumin Crossmatch See Detail 03/15/17 03/15/1717 11:09 12:05 12:30 RBC Hgb Hct Plt Count Lymphocytes # PT INR APTT ABG pO2 ABG O2 Saturation Chloride Glucose POC Glucose (mg/dL) 121 H 147 H 139 H Calcium Ionized Calcium [place] Magnesium ALT Alkaline Phosphatase Total Protein Albumin Crossmatch 03/15/17 03/15/17 03/15/17 13:06 13:08 13:13 RBC Hgb Hct Plt Count Lymphocytes # PT INR APTT ABG pO2 ABG O2 Saturation Chloride Glucose POC Glucose (mg/dL) 107 H 109 H 120 H Calcium Ionized Calcium [place] Magnesium ALT Alkaline Phosphatase Total Protein Albumin Crossmatch 03/15/17 03/15/17 03/15/17 13:39 15:05 15:05 RBC 2.30 L Hgb 7.0 L* D Hct 20.3 L Plt Count 81 L D Lymphocytes # 0.7 L PT INR APTT ABG pO2 ABG O2 Saturation Chloride 109 H Glucose 125 H POC Glucose (mg/dL) 124 H Calcium 6.7 L Ionized Calcium [place] 3.7 L Magnesium 1.4 L ALT 18 L Alkaline Phosphatase 24 L Total Protein 4.2 L Albumin 2.8 L Crossmatch 03/15/17 03/15/17 03/15/17 15:05 15:08 15:28 RBC Hgb Hct Plt Count Lymphocytes # PT 16.4 H INR 1.7 H APTT 43.3 H ABG pO2 >400 H ABG O2 Saturation 100.0 H Chloride Glucose POC Glucose (mg/dL) 149 H Calcium Ionized Calcium [place] Magnesium ALT Alkaline Phosphatase Total Protein Albumin Crossmatch 03/15/17 03/15/17 16:02 17:02 RBC Hgb Hct Plt Count Lymphocytes # PT INR APTT ABG pO2 ABG O2 Saturation Chloride Glucose POC Glucose (mg/dL) 156 H 147 H Calcium Ionized Calcium [place] Magnesium ALT Alkaline Phosphatase Total Protein Albumin Crossmatch - Diagnostic Findings Chest x-ray: image reviewed Assessment and Plan Plan: Assessment 1 multivessel coronary artery disease and the patient is status post four- vessel coronary artery bypass surgery including CASTELLANOS to LAD. Patient is postop day #0. 2 postoperative anemia due to intraoperative blood loss and active drainage from the chest tubes. The patient received 2 units of packed RBC and the third will be given for a hemoglobin of 7.0. Slightly coagulopathic and the calcium level was also low/INS calcium, the patient has received a total of 4 units of fresh frozen plasma and 2 g of calcium gluconate. The drainage from the chest tubes is noted to decrease over the past 2 hours. No passage of any blood clots. 3 post thoracotomy, currently intubated on a mechanical ventilator in the process of weaning. FiO2 has been drop down to 40% 4 chronic renal failure, creatinine is normal at this point and the patient is producing adequate amount of urine output 5 carotid artery disease, as discussed earlier 6 postoperative hypertension currently on clevidipine drip for blood pressure control 8 hyperlipidemia 9. Hearing 10 throat cancer back in 2005, post chemoradiation therapy Plan Continue monitoring the output from the chest tube. Monitor hemoglobin. Transfuse if hemoglobin is less than 7. In terms of weaning from the mechanical ventilator, this was largely depend on the hemodynamics and hemostasis as the patient had increased output from his chest tubes since arriving from the operating room. Initiate is more stable for now. FiO2 has been drop down to 40%. Being given IV fluids and the patient has been also given 2 ampules of 5% albumin. Urine output is adequate. We'll continue to follow make further recommendations based on his overall clinical progress.
[2017-03-15] MEDS: ACETAMINOPHEN IV (For NPO) 1,000 MG in EMPTY BAG 1 BAG IVPB SCH ×2 (18:27→23:13)
[2017-03-15 18:49] LABS: Basophils % (A) 0 %; CH 31.1; CHCM 34.9; Eosinophils # (A) 0.2 k/uL (0-0.7); Eosinophils % (A) 3 %; HCT 23.1 % (39.0-53.0); HGB 8.2 gm/dL (13.0-17.5); Luc # (Auto) 0.05; Luc % (Auto) 1; Lymphocytes # (A) 0.5 k/uL (1.0-4.8); Lymphocytes % (A) 8 %; MCH 31.8 pg (25.0-35.0); MCHC 35.5 g/dL (31.0-37.0); MCV 89.6 fL (80.0-100.0); Mean Platelet Volume 8.4; Monocytes # (A) 0.3 k/uL (0-1.0); Monocytes % (A) 4 %; Neutrophils # (A) 5.9 k/uL (1.3-7.7); Neutrophils % (A) 85 %; RBC 2.58 m/uL (4.30-5.90); WBC (Perox) 6.79
[2017-03-15 18:52] LABS: Glucose,Whole Blood 154 mg/dL (75-99)
[2017-03-15 18:53] LABS: Ionized Calcium 4.5 mg/dL (4.5-5.3)
[2017-03-15 18:54] LABS: INR 1.4 (<1.2); Partial Thromboplastin Time 33.8 sec (22.0-30.0); Prothrombin Time 13.3 sec (9.0-12.0)
[2017-03-15 19:04] LABS: Anion Gap 10 mmol/L; Blood Urea Nitrogen 18 mg/dL (9-20); Calcium 7.7 mg/dL (8.4-10.2); Carbon Dioxide 24 mmol/L (22-30); Chloride 108 mmol/L (98-107); Glucose 106 mg/dL (74-99); Magnesium 1.5 mg/dL (1.6-2.3); Non-African American GFR(MDRD) >60 (>60 ml/min/1.73 sqM); Phosphorous 2.3 mg/dL (2.5-4.5); Potassium 3.8 mmol/L (3.5-5.1); Sodium 142 mmol/L (137-145)
[2017-03-15] MEDS ORDERED: SODIUM PHOSPHATE 10 MMOL in SODIUM CHLORIDE 0.9% 250 ML IVPB ONE (19:37)
[2017-03-15] MEDS ORDERED: POTASSIUM CHLORIDE 20 MEQ in WATER FOR INJECTION 1 100ML.BAG IVPB ONE (19:37)
[2017-03-15 20:03] LABS: Glucose,Whole Blood 80 mg/dL (75-99)
[2017-03-15] MEDS: MAGNESIUM SULFATE-D5W PMX 1 GM in DEXTROSE/WATER 1 100ML.BAG IVPB SCH ×2 (20:12→21:15)
[2017-03-15 20:51] LABS: ABG Base Excess -1.3 mmol/L; ABG HCO3 23 mmol/L (21-25); ABG PCO2 36 mmHg (35-45); ABG PH 7.41 (7.35-7.45); ABG PO2 171 mmHg (83-108); ABG TCO2 24 mmol/L (19-24)
[2017-03-15 21:09] LABS: Glucose,Whole Blood 73 mg/dL (75-99)
[2017-03-15] MEDS: MUPIROCIN 2% OINT 22 GM TUBE NASAL SCH (21:13)
[2017-03-15 22:04] LABS: Glucose,Whole Blood 128 mg/dL (75-99)
[2017-03-15 22:13] LABS: Basophils % (A) 0 %; CH 30.3; CHCM 34.8; Eosinophils % (A) 1 %; HCT 21.2 % (39.0-53.0); HDW 3.18; HGB 7.5 gm/dL (13.0-17.5); Luc # (Auto) 0.06; Luc % (Auto) 1; Lymphocytes # (A) 0.2 k/uL (1.0-4.8); Lymphocytes % (A) 4 %; MCH 30.7 pg (25.0-35.0); MCHC 35.2 g/dL (31.0-37.0); MCV 87.3 fL (80.0-100.0); Mean Platelet Volume 8.5; Monocytes # (A) 0.3 k/uL (0-1.0); Monocytes % (A) 4 %; Neutrophils # (A) 5.2 k/uL (1.3-7.7); Neutrophils % (A) 90 %; RBC 2.43 m/uL (4.30-5.90); RDW 14.7 % (11.5-15.5); WBC 5.8 k/uL (3.8-10.6); WBC (Perox) 5.93
[2017-03-15 23:02] LABS: Glucose,Whole Blood 116 mg/dL (75-99)
[2017-03-15 23:55] LABS: Glucose,Whole Blood 119 mg/dL (75-99)
[2017-03-16 01:07] LABS: Glucose,Whole Blood 92 mg/dL (75-99)
[2017-03-16 02:11] LABS: Glucose,Whole Blood 95 mg/dL (75-99)
[2017-03-16 03:08] LABS: Glucose,Whole Blood 100 mg/dL (75-99)
[2017-03-16] MEDS: MORPHINE SULFATE 2 MG/ML SYRINGE IVP PRN (03:15)
[2017-03-16 04:04] LABS: Glucose,Whole Blood 140 mg/dL (75-99)
[2017-03-16 04:20] LABS: Basophils % (A) 0 %; CH 31.1; CHCM 35.2; Eosinophils % (A) 0 %; HDW 3.14; HGB 7.7 gm/dL (13.0-17.5); Luc # (Auto) 0.06; Luc % (Auto) 1; Lymphocytes # (A) 0.4 k/uL (1.0-4.8); Lymphocytes % (A) 6 %; MCHC 34.8 g/dL (31.0-37.0); Mean Platelet Volume 9.1; Monocytes # (A) 0.2 k/uL (0-1.0); Monocytes % (A) 4 %; Neutrophils # (A) 5.6 k/uL (1.3-7.7); Neutrophils % (A) 89 %; RBC 2.47 m/uL (4.30-5.90); RDW 15.1 % (11.5-15.5); WBC 6.3 k/uL (3.8-10.6)
[2017-03-16 04:39] LABS: Ionized Calcium 4.4 mg/dL (4.5-5.3)
[2017-03-16 04:46] LABS: ALT 28 U/L (21-72); AST 29 U/L (17-59); Alkaline Phosphatase 35 U/L (38-126); Anion Gap 10 mmol/L; Blood Urea Nitrogen 19 mg/dL (9-20); Calcium 7.8 mg/dL (8.4-10.2); Carbon Dioxide 22 mmol/L (22-30); Chloride 106 mmol/L (98-107); Glucose 124 mg/dL (74-99); Magnesium 1.9 mg/dL (1.6-2.3); Non-African American GFR(MDRD) >60 (>60 ml/min/1.73 sqM); Phosphorous 3.3 mg/dL (2.5-4.5); Potassium 4.7 mmol/L (3.5-5.1); Sodium 138 mmol/L (137-145); Total Bilirubin 1.3 mg/dL (0.2-1.3); Total Protein 5.1 g/dL (6.3-8.2)
[2017-03-16 05:11] LABS: Glucose,Whole Blood 130 mg/dL (75-99)
[2017-03-16] MEDS: ACETAMINOPHEN IV (For NPO) 1,000 MG in EMPTY BAG 1 BAG IVPB SCH ×3 (05:13→17:27)
[2017-03-16 06:13] LABS: Glucose,Whole Blood 107 mg/dL (75-99)
[2017-03-16] MEDS: MAGNESIUM SULFATE-D5W PMX 1 GM in DEXTROSE/WATER 1 100ML.BAG IVPB SCH ×2 (06:15→07:22)
[2017-03-16 06:16] LABS: ABG Base Excess -1.2 mmol/L; ABG HCO3 22 mmol/L (21-25); ABG PCO2 33 mmHg (35-45); ABG PH 7.44 (7.35-7.45); ABG PO2 386 mmHg (83-108); ABG TCO2 23 mmol/L (19-24)
[2017-03-16 06:25] LABS: ABG Base Excess -2.5 mmol/L; ABG HCO3 23 mmol/L (21-25); ABG Oxygen Saturation 99.9 % (94-97); ABG PCO2 48 mmHg (35-45); ABG PH 7.31 (7.35-7.45); ABG PO2 371 mmHg (83-108); ABG TCO2 25 mmol/L (19-24)
[2017-03-16 06:26] LABS: ABG PCO2 42 mmHg (35-45); ABG PH 7.35 (7.35-7.45); ABG PO2 379 mmHg (83-108)
[2017-03-16 06:28] LABS: ABG Base Excess -2.4 mmol/L; ABG HCO3 23 mmol/L (21-25); ABG TCO2 24 mmol/L (19-24)
[2017-03-16 06:43] LABS: ABG Base Excess -2.8 mmol/L; ABG HCO3 21 mmol/L (21-25); ABG PCO2 37 mmHg (35-45); ABG PH 7.38 (7.35-7.45); ABG PO2 412 mmHg (83-108); ABG TCO2 23 mmol/L (19-24)
[2017-03-16 06:44] LABS: ABG Base Excess -4.3 mmol/L; ABG HCO3 21 mmol/L (21-25); ABG Oxygen Saturation 99.9 % (94-97); ABG PCO2 45 mmHg (35-45); ABG PO2 398 mmHg (83-108); ABG TCO2 23 mmol/L (19-24)
[2017-03-16 06:46] LABS: ABG Base Excess -1.2 mmol/L; ABG HCO3 24 mmol/L (21-25); ABG PCO2 42 mmHg (35-45); ABG PH 7.36 (7.35-7.45); ABG PO2 375 mmHg (83-108); ABG TCO2 25 mmol/L (19-24)
[2017-03-16 06:48] LABS: ABG HCO3 22 mmol/L (21-25); ABG Oxygen Saturation 99.9 % (94-97); ABG PCO2 40 mmHg (35-45); ABG PH 7.36 (7.35-7.45); ABG PO2 340 mmHg (83-108); ABG TCO2 23 mmol/L (19-24)
[2017-03-16 07:01] LABS: ABG Base Excess -3.3 mmol/L; ABG HCO3 22 mmol/L (21-25); ABG Oxygen Saturation 81.3 % (94-97); ABG PCO2 49 mmHg (35-45); ABG PH 7.29 (7.35-7.45); ABG PO2 51 mmHg (83-108); ABG TCO2 24 mmol/L (19-24)
[2017-03-16 07:05] LABS: Glucose,Whole Blood 117 mg/dL (75-99)
--- NOTE | 2017-03-16 07:25 | XR ---
EXAMINATION TYPE: XR chest 1V portable DATE OF EXAM: 03/16/2017 COMPARISON: 03/15/2017 INDICATION: Post cardiac surgery TECHNIQUE: Single frontal view of the chest is obtained. FINDINGS: The heart size is normal. The pulmonary vasculature is normal. Mild left lower lobe infiltrate is present. Correlate for atelectasis. This is developing from prior study. No pneumothorax is evident. [place] catheter is present with the tip in the main pulmonary artery r egion. Mediastinal and left sided chest tubes are present. No pneumothorax is evident. IMPRESSION: 1. Increasing left lower lobe retrocardiac infiltrate. Correlate for atelectasis. 2. Lines and catheters discussed above.
[2017-03-16 08:01] LABS: Glucose,Whole Blood 135 mg/dL (75-99)
[2017-03-16] MEDS: ceFAZolin 2 GM in SODIUM CHLORIDE 0.9% 100 ML IVPB SCH (08:17)
[2017-03-16] MEDS: ATORVASTATIN 40 MG TAB PO SCH (08:18)
[2017-03-16] MEDS: METOPROLOL TARTRATE 12.5 MG TAB PO SCH (08:18)
[2017-03-16] MEDS: LEVOTHYROXINE 112 MCG TAB PO SCH (08:19)
[2017-03-16] MEDS: ESOMEPRAZOLE 20 MG in SODIUM CHLORIDE 0.9% 50 ML IVPB SCH (08:19)
[2017-03-16] MEDS: ASPIRIN 81 MG CHEW PO SCH (08:19)
[2017-03-16] MEDS: CLOPIDOGREL 75 MG TAB PO SCH (08:19)
[2017-03-16 08:55] LABS: Glucose,Whole Blood 146 mg/dL (75-99)
[2017-03-16] MEDS ORDERED: ASPIRIN 325 MG TAB PO SCH (09:00)
[2017-03-16] MEDS: MUPIROCIN 2% OINT 22 GM TUBE NASAL SCH ×2 (09:07→21:25)
[2017-03-16 09:40] VITALS: BMI 27.3
[2017-03-16 10:01] LABS: Glucose,Whole Blood 121 mg/dL (75-99)
[2017-03-16 10:54] LABS: Glucose,Whole Blood 106 mg/dL (75-99)
--- NOTE | 2017-03-16 11:39 | P.PN ---
<Ashlyn Worrell - Last Filed: 03/16/17 11:29> Subjective Principal diagnosis: Severe symptomatic multivessel coronary artery disease. Bilateral carotid stenosis. Hypertension. Hyperlipidemia. History of throat cancer with chemo and radiation, status post radical neck dissection. History of tobacco dependence. POD #1 elective off-pump coronary artery bypass graft surgery, left internal mammary artery to the left anterior descending artery, reverse saphenous vein graft to the diagonal artery, reverse saphenous vein graft to the obtuse marginal artery, reverse saphenous vein graft to the right coronary artery. Bilateral lower extremity endoscopic vein harvesting. Epi-aortic scanning. Intraoperative transesophageal echocardiogram. Intraoperative graft flow measurement using the [employer] system. Currently sitting up in a recliner in no acute distress. Was extubated last night. Denies pain, shortness of breath. Had quite a bit of output continues chest tubes last night, received multiple blood products, output diminishing this morning. Objective - Vital Signs Vital signs: Vital Signs Temp 99.5 F 03/16/17 04:00 Pulse 85 03/16/17 08:30 Resp 20 03/16/17 08:30 BP 95/50 03/16/17 08:30 Pulse Ox 97 03/16/17 10:44 Intake & Output 03/15/17 03/16/17 03/16/17 18:59 06:59 18:59 Intake Total 2778 1749.808 468 Output Total 6488 1935 198 Balance -3710 -185.192 270 Weight 84.2 kg 84.2 kg Intake: IV 634 1461 468 ACETAMINOPHEN IV (For NPO 200 ) 1,000 mg In Empty Bag 1 bag @ 400 mls/hr IVPB Q6HR [facility] Rx#:[id number] CO/CI 80 Calcium Gluconate 2,000 100 mg In Sodium Chloride 0.9 % 100 ml @ 100 mls/hr IVPB ONCE ONE Rx#: [id number] Calcium Gluconate 2,000 100 mg In Sodium Chloride 0.9 % 100 ml @ 100 mls/hr IVPB ONCE PRN Rx#: [id number] Lactated Ringers 1,000 ml 300 350 150 @ 20 mls/hr IV .Q24H [facility] Rx#:[id number] Magnesium Sulfate-D5w Pmx 300 100 1 gm In Dextrose/Water 1 100ml.bag @ 100 mls/hr IVPB Q1H [facility] Rx#: [id number] Potassium Chloride 20 meq 100 In Water For Injection 1 100ml.bag @ 50 mls/hr IVPB ONCE ONE Rx#: [id number] Pressure Bag 81 18 Sodium Phosphate 10 mmol 250 In Sodium Chloride 0.9% 250 ml @ 125 mls/hr IVPB ONCE ONE Rx#:[id number] ceFAZolin 2 gm In Sodium 100 100 100 Chloride 0.9% 100 ml @ 100 mls/hr IVPB Q8HR [facility] Rx#:[id number] Intake, IV Titration 24.808 0 Amount Clevidipine Butyrate 25 10 mg In Empty Bag 1 bag @ 1 MG/HR 2 mls/hr IV .Q24H [facility] Rx#:[id number] Insulin Regular 100 unit 14.808 0 In Sodium Chloride 0.9% 100 ml @ Per Protocol IV .Q0M [facility] Rx#:[id number] Oral 120 Blood Product 2144 144 Cryoprecipitate Unit 10 [id number] Cryoprecipitate Unit 10 [id number] Cryoprecipitate Unit 10 [id number] Cryoprecipitate Unit 10 [id number] Cryoprecipitate Unit 10 [id number] Cryoprecipitate Unit 10 [id number] Cryoprecipitate Unit 10 [id number] Cryoprecipitate Unit 10 [id number] Cryoprecipitate Unit 10 [id number] Cryoprecipitate Unit 10 [id number] Ffp 24 Cp2d Unit 209 [id number] Ffp 24 Cp2d Unit 178 [id number] Ffp 24 Cpd Unit 317 [id number] Ffp 24 Cpda Unit 217 [id number] Platelet Pheresis Acda1 293 Unit [id number] Platelet Pheresis Acda2 44 Unit [id number] Rc As-1 Unit 310 [id number] Rc As-1 Unit 310 [id number] Rc As-1 Unit 310 [id number] Output: Chest Tube Drainage 800 810 80 Left Pleural 460 390 50 Mediastinal x 2 340 420 30 Gastric Drainage 0 Drainage 0 40 Left Calf 0 10 Right Medial Thigh 0 30 Urine 2238 1085 118 Estimated Blood Loss 3450 Other: Voiding Method Indwelling Catheter Indwelling Catheter # Bowel Movements 0 0 ABP, PAP, CO, CI - Last Documented Arterial Blood Pressure 137/61 Pulmonary Artery Pressure 20/13 Cardiac Output 6 Cardiac Index 3.2 - Constitutional General appearance: Present: cooperative, no acute distress - Respiratory Details: Lungs sounds diminished bilaterally. Respirations even, nonlabored. Currently on 4 L nasal cannula suction saturation 100%. Able to achieve 1250 mL on his incentive spirometry. Effective cough. Left pleural chest tube to -20 cm wall suction, 330 mL output overnight, 750 mL since surgery. Mediastinal chest tube to -20 cm wall suction, 290 mL output overnight, 850 mL since surgery. No air leaks present. - Cardiovascular Details: S1, S2 present. Regular rate and rhythm, normal sinus rhythm on telemetry. Sternum stable. Heart hugger placed patient demonstrating appropriate use. Teds/SCDs present. No edema present. - Gastrointestinal Gastrointestinal Comment(s): Abdomen soft, nontender, nondistended. Active bowel sounds 4 quadrants. Tolerating diet. - Genitourinary Genitourinary Comment(s): Edwards present draining clear, yellow urine. Output 40-50 mL/hr overnight - Integumentary Integumentary Comment(s): Anterior chest incision well approximated and covered with dry intact dressing. Bilateral lower extremity EVH sites well approximated, CHANDA drains in place with minimal output. - Musculoskeletal Musculoskeletal: Present: strength equal bilaterally - Psychiatric Psychiatric: Present: A&O x's 3, appropriate affect, intact judgment & insight - Allied health notes Allied health notes reviewed: nursing - Labs CBC & Chem 7: 03/16/17 04:05 03/16/17 04:05 Labs: Abnormal Lab Results - Last 24 Hours (Table) 03/13/17 03/15/17 03/15/17 Range/Units 09:07 09:00 10:18 RBC (4.30-5.90) m/uL Hgb (13.0-17.5) gm/dL Hct (39.0-53.0) % Plt Count (150-450) k/uL Lymphocytes # (1.0-4.8) k/uL PT (9.0-12.0) sec INR (<1.2) APTT (22.0-30.0) sec Fibrinogen (200-500) mg/dL ABG pH 7.31 L (7.35-7.45) ABG pCO2 33 L 48 H (35-45) mmHg ABG pO2 386 H 371 H (83-108) mmHg ABG Total CO2 25 H (19-24) mmol/L ABG O2 Saturation 100.0 H 99.9 H (94-97) % ABG Hematocrit 32 L (34.0-46.0) % Chloride (98-107) mmol/L Glucose (74-99) mg/dL POC Glucose (mg/dL) (75-99) mg/dL Calcium (8.4-10.2) mg/dL Ionized Calcium Bonny (4.5-5.3) mg/dL Phosphorus (2.5-4.5) mg/dL Magnesium (1.6-2.3) mg/dL ALT (21-72) U/L Alkaline Phosphatase (38-126) U/L Total Protein (6.3-8.2) g/dL Albumin (3.5-5.0) g/dL Crossmatch See Detail 03/15/17 03/15/17 03/15/17 Range/Units 10:44 11:10 12:05 RBC (4.30-5.90) m/uL Hgb (13.0-17.5) gm/dL Hct (39.0-53.0) % Plt Count (150-450) k/uL Lymphocytes # (1.0-4.8) k/uL PT (9.0-12.0) sec INR (<1.2) APTT (22.0-30.0) sec Fibrinogen (200-500) mg/dL ABG pH (7.35-7.45) ABG pCO2 (35-45) mmHg ABG pO2 379 H 412 H (83-108) mmHg ABG Total CO2 (19-24) mmol/L ABG O2 Saturation 100.0 H 100.0 H (94-97) % ABG Hematocrit 29 L 27 L (34.0-46.0) % Chloride (98-107) mmol/L Glucose (74-99) mg/dL POC Glucose (mg/dL) 147 H (75-99) mg/dL Calcium (8.4-10.2) mg/dL Ionized Calcium Bonny (4.5-5.3) mg/dL Phosphorus (2.5-4.5) mg/dL Magnesium (1.6-2.3) mg/dL ALT (21-72) U/L Alkaline Phosphatase (38-126) U/L Total Protein (6.3-8.2) g/dL Albumin (3.5-5.0) g/dL Crossmatch 03/15/17 03/15/17 03/15/17 Range/Units 12:05 12:30 12:30 RBC (4.30-5.90) m/uL Hgb (13.0-17.5) gm/dL Hct (39.0-53.0) % Plt Count (150-450) k/uL Lymphocytes # (1.0-4.8) k/uL PT (9.0-12.0) sec INR (<1.2) APTT (22.0-30.0) sec Fibrinogen (200-500) mg/dL ABG pH 7.30 L (7.35-7.45) ABG pCO2 (35-45) mmHg ABG pO2 398 H 375 H (83-108) mmHg ABG Total CO2 25 H (19-24) mmol/L ABG O2 Saturation 99.9 H 100.0 H (94-97) % ABG Hematocrit 26 L 23 L (34.0-46.0) % Chloride (98-107) mmol/L Glucose (74-99) mg/dL POC Glucose (mg/dL) 139 H (75-99) mg/dL Calcium (8.4-10.2) mg/dL Ionized Calcium Bonny (4.5-5.3) mg/dL Phosphorus (2.5-4.5) mg/dL Magnesium (1.6-2.3) mg/dL ALT (21-72) U/L Alkaline Phosphatase (38-126) U/L Total Protein (6.3-8.2) g/dL Albumin (3.5-5.0) g/dL Crossmatch 03/15/17 03/15/17 03/15/17 Range/Units 13:06 13:08 13:13 RBC (4.30-5.90) m/uL Hgb (13.0-17.5) gm/dL Hct (39.0-53.0) % Plt Count (150-450) k/uL Lymphocytes # (1.0-4.8) k/uL PT (9.0-12.0) sec INR (<1.2) APTT (22.0-30.0) sec Fibrinogen (200-500) mg/dL ABG pH (7.35-7.45) ABG pCO2 (35-45) mmHg ABG pO2 (83-108) mmHg ABG Total CO2 (19-24) mmol/L ABG O2 Saturation (94-97) % ABG Hematocrit (34.0-46.0) % Chloride (98-107) mmol/L Glucose (74-99) mg/dL POC Glucose (mg/dL) 107 H 109 H 120 H (75-99) mg/dL Calcium (8.4-10.2) mg/dL Ionized Calcium Bonny (4.5-5.3) mg/dL Phosphorus (2.5-4.5) mg/dL Magnesium (1.6-2.3) mg/dL ALT (21-72) U/L Alkaline Phosphatase (38-126) U/L Total Protein (6.3-8.2) g/dL Albumin (3.5-5.0) g/dL Crossmatch 03/15/17 03/15/17 03/15/17 Range/Units 13:13 13:39 13:40 RBC (4.30-5.90) m/uL Hgb (13.0-17.5) gm/dL Hct (39.0-53.0) % Plt Count (150-450) k/uL Lymphocytes # (1.0-4.8) k/uL PT (9.0-12.0) sec INR (<1.2) APTT (22.0-30.0) sec Fibrinogen (200-500) mg/dL ABG pH 7.29 L (7.35-7.45) ABG pCO2 49 H (35-45) mmHg ABG pO2 51 L 340 H (83-108) mmHg ABG Total CO2 (19-24) mmol/L ABG O2 Saturation 81.3 L 99.9 H (94-97) % ABG Hematocrit 17 L* 19 L* (34.0-46.0) % Chloride (98-107) mmol/L Glucose (74-99) mg/dL POC Glucose (mg/dL) 124 H (75-99) mg/dL Calcium (8.4-10.2) mg/dL Ionized Calcium Bonny (4.5-5.3) mg/dL Phosphorus (2.5-4.5) mg/dL Magnesium (1.6-2.3) mg/dL ALT (21-72) U/L Alkaline Phosphatase (38-126) U/L Total Protein (6.3-8.2) g/dL Albumin (3.5-5.0) g/dL Crossmatch 03/15/17 03/15/17 03/15/17 Range/Units 15:00 15:05 15:05 RBC 2.30 L (4.30-5.90) m/uL Hgb 7.0 L* D (13.0-17.5) gm/dL Hct 20.3 L (39.0-53.0) % Plt Count 81 L D (150-450) k/uL Lymphocytes # 0.7 L (1.0-4.8) k/uL PT (9.0-12.0) sec INR (<1.2) APTT (22.0-30.0) sec Fibrinogen 98 L* (200-500) mg/dL ABG pH (7.35-7.45) ABG pCO2 (35-45) mmHg ABG pO2 (83-108) mmHg ABG Total CO2 (19-24) mmol/L ABG O2 Saturation (94-97) % ABG Hematocrit (34.0-46.0) % Chloride 109 H (98-107) mmol/L Glucose 125 H (74-99) mg/dL POC Glucose (mg/dL) (75-99) mg/dL Calcium 6.7 L (8.4-10.2) mg/dL Ionized Calcium Bonny 3.7 L (4.5-5.3) mg/dL Phosphorus (2.5-4.5) mg/dL Magnesium 1.4 L (1.6-2.3) mg/dL ALT 18 L (21-72) U/L Alkaline Phosphatase 24 L (38-126) U/L Total Protein 4.2 L (6.3-8.2) g/dL Albumin 2.8 L (3.5-5.0) g/dL Crossmatch 03/15/17 03/15/17 03/15/17 Range/Units 15:05 15:08 15:28 RBC (4.30-5.90) m/uL Hgb (13.0-17.5) gm/dL Hct (39.0-53.0) % Plt Count (150-450) k/uL Lymphocytes # (1.0-4.8) k/uL PT 16.4 H (9.0-12.0) sec INR 1.7 H (<1.2) APTT 43.3 H (22.0-30.0) sec Fibrinogen (200-500) mg/dL ABG pH (7.35-7.45) ABG pCO2 (35-45) mmHg ABG pO2 >400 H (83-108) mmHg ABG Total CO2 (19-24) mmol/L ABG O2 Saturation 100.0 H (94-97) % ABG Hematocrit (34.0-46.0) % Chloride (98-107) mmol/L Glucose (74-99) mg/dL POC Glucose (mg/dL) 149 H (75-99) mg/dL Calcium (8.4-10.2) mg/dL Ionized Calcium Bonny (4.5-5.3) mg/dL Phosphorus (2.5-4.5) mg/dL Magnesium (1.6-2.3) mg/dL ALT (21-72) U/L Alkaline Phosphatase (38-126) U/L Total Protein (6.3-8.2) g/dL Albumin (3.5-5.0) g/dL Crossmatch 03/15/17 03/15/17 03/15/17 Range/Units 16:02 17:02 18:30 RBC 2.58 L (4.30-5.90) m/uL Hgb 8.2 L (13.0-17.5) gm/dL Hct 23.1 L (39.0-53.0) % Plt Count 106 L (150-450) k/uL Lymphocytes # 0.5 L (1.0-4.8) k/uL PT (9.0-12.0) sec INR (<1.2) APTT (22.0-30.0) sec Fibrinogen (200-500) mg/dL ABG pH (7.35-7.45) ABG pCO2 (35-45) mmHg ABG pO2 (83-108) mmHg ABG Total CO2 (19-24) mmol/L ABG O2 Saturation (94-97) % ABG Hematocrit (34.0-46.0) % Chloride (98-107) mmol/L Glucose (74-99) mg/dL POC Glucose (mg/dL) 156 H 147 H (75-99) mg/dL Calcium (8.4-10.2) mg/dL Ionized Calcium Bonny (4.5-5.3) mg/dL Phosphorus (2.5-4.5) mg/dL Magnesium (1.6-2.3) mg/dL ALT (21-72) U/L Alkaline Phosphatase (38-126) U/L Total Protein (6.3-8.2) g/dL Albumin (3.5-5.0) g/dL Crossmatch 03/15/17 03/15/17 03/15/17 Range/Units 18:30 18:30 18:40 RBC (4.30-5.90) m/uL Hgb (13.0-17.5) gm/dL Hct (39.0-53.0) % Plt Count (150-450) k/uL Lymphocytes # (1.0-4.8) k/uL PT 13.3 H (9.0-12.0) sec INR 1.4 H (<1.2) APTT 33.8 H (22.0-30.0) sec Fibrinogen (200-500) mg/dL ABG pH (7.35-7.45) ABG pCO2 (35-45) mmHg ABG pO2 (83-108) mmHg ABG Total CO2 (19-24) mmol/L ABG O2 Saturation (94-97) % ABG Hematocrit (34.0-46.0) % Chloride 108 H (98-107) mmol/L Glucose 106 H (74-99) mg/dL POC Glucose (mg/dL) 154 H (75-99) mg/dL Calcium 7.7 L (8.4-10.2) mg/dL Ionized Calcium Bonny (4.5-5.3) mg/dL Phosphorus 2.3 L (2.5-4.5) mg/dL Magnesium 1.5 L (1.6-2.3) mg/dL ALT (21-72) U/L Alkaline Phosphatase (38-126) U/L Total Protein (6.3-8.2) g/dL Albumin (3.5-5.0) g/dL Crossmatch 03/15/17 03/15/17 03/15/17 Range/Units 20:49 21:08 22:01 RBC 2.43 L (4.30-5.90) m/uL Hgb 7.5 L (13.0-17.5) gm/dL Hct 21.2 L (39.0-53.0) % Plt Count 123 L (150-450) k/uL Lymphocytes # 0.2 L (1.0-4.8) k/uL PT (9.0-12.0) sec INR (<1.2) APTT (22.0-30.0) sec Fibrinogen (200-500) mg/dL ABG pH (7.35-7.45) ABG pCO2 (35-45) mmHg ABG pO2 171 H (83-108) mmHg ABG Total CO2 (19-24) mmol/L ABG O2 Saturation 100.0 H (94-97) % ABG Hematocrit (34.0-46.0) % Chloride (98-107) mmol/L Glucose (74-99) mg/dL POC Glucose (mg/dL) 73 L (75-99) mg/dL Calcium (8.4-10.2) mg/dL Ionized Calcium Bonny (4.5-5.3) mg/dL Phosphorus (2.5-4.5) mg/dL Magnesium (1.6-2.3) mg/dL ALT (21-72) U/L Alkaline Phosphatase (38-126) U/L Total Protein (6.3-8.2) g/dL Albumin (3.5-5.0) g/dL Crossmatch 03/15/17 03/15/17 03/15/17 Range/Units 22:03 23:01 23:54 RBC (4.30-5.90) m/uL Hgb (13.0-17.5) gm/dL Hct (39.0-53.0) % Plt Count (150-450) k/uL Lymphocytes # (1.0-4.8) k/uL PT (9.0-12.0) sec INR (<1.2) APTT (22.0-30.0) sec Fibrinogen (200-500) mg/dL ABG pH (7.35-7.45) ABG pCO2 (35-45) mmHg ABG pO2 (83-108) mmHg ABG Total CO2 (19-24) mmol/L ABG O2 Saturation (94-97) % ABG Hematocrit (34.0-46.0) % Chloride (98-107) mmol/L Glucose (74-99) mg/dL POC Glucose (mg/dL) 128 H 116 H 119 H (75-99) mg/dL Calcium (8.4-10.2) mg/dL Ionized Calcium Bonny (4.5-5.3) mg/dL Phosphorus (2.5-4.5) mg/dL Magnesium (1.6-2.3) mg/dL ALT (21-72) U/L Alkaline Phosphatase (38-126) U/L Total Protein (6.3-8.2) g/dL Albumin (3.5-5.0) g/dL Crossmatch 03/16/17 03/16/17 03/16/17 Range/Units 03:07 04:02 04:05 RBC 2.47 L (4.30-5.90) m/uL Hgb 7.7 L (13.0-17.5) gm/dL Hct 22.0 L (39.0-53.0) % Plt Count 134 L (150-450) k/uL Lymphocytes # 0.4 L (1.0-4.8) k/uL PT (9.0-12.0) sec INR (<1.2) APTT (22.0-30.0) sec Fibrinogen (200-500) mg/dL ABG pH (7.35-7.45) ABG pCO2 (35-45) mmHg ABG pO2 (83-108) mmHg ABG Total CO2 (19-24) mmol/L ABG O2 Saturation (94-97) % ABG Hematocrit (34.0-46.0) % Chloride (98-107) mmol/L Glucose (74-99) mg/dL POC Glucose (mg/dL) 100 H 140 H (75-99) mg/dL Calcium (8.4-10.2) mg/dL Ionized Calcium Bonny (4.5-5.3) mg/dL Phosphorus (2.5-4.5) mg/dL Magnesium (1.6-2.3) mg/dL ALT (21-72) U/L Alkaline Phosphatase (38-126) U/L Total Protein (6.3-8.2) g/dL Albumin (3.5-5.0) g/dL Crossmatch 03/16/17 03/16/17 03/16/17 Range/Units 04:05 05:09 06:12 RBC (4.30-5.90) m/uL Hgb (13.0-17.5) gm/dL Hct (39.0-53.0) % Plt Count (150-450) k/uL Lymphocytes # (1.0-4.8) k/uL PT (9.0-12.0) sec INR (<1.2) APTT (22.0-30.0) sec Fibrinogen (200-500) mg/dL ABG pH (7.35-7.45) ABG pCO2 (35-45) mmHg ABG pO2 (83-108) mmHg ABG Total CO2 (19-24) mmol/L ABG O2 Saturation (94-97) % ABG Hematocrit (34.0-46.0) % Chloride (98-107) mmol/L Glucose 124 H (74-99) mg/dL POC Glucose (mg/dL) 130 H 107 H (75-99) mg/dL Calcium 7.8 L (8.4-10.2) mg/dL Ionized Calcium Bonny 4.4 L (4.5-5.3) mg/dL Phosphorus (2.5-4.5) mg/dL Magnesium (1.6-2.3) mg/dL ALT (21-72) U/L Alkaline Phosphatase 35 L (38-126) U/L Total Protein 5.1 L (6.3-8.2) g/dL Albumin (3.5-5.0) g/dL Crossmatch 03/16/17 03/16/17 03/16/17 Range/Units 07:04 07:58 08:53 RBC (4.30-5.90) m/uL Hgb (13.0-17.5) gm/dL Hct (39.0-53.0) % Plt Count (150-450) k/uL Lymphocytes # (1.0-4.8) k/uL PT (9.0-12.0) sec INR (<1.2) APTT (22.0-30.0) sec Fibrinogen (200-500) mg/dL ABG pH (7.35-7.45) ABG pCO2 (35-45) mmHg ABG pO2 (83-108) mmHg ABG Total CO2 (19-24) mmol/L ABG O2 Saturation (94-97) % ABG Hematocrit (34.0-46.0) % Chloride (98-107) mmol/L Glucose (74-99) mg/dL POC Glucose (mg/dL) 117 H 135 H 146 H (75-99) mg/dL Calcium (8.4-10.2) mg/dL Ionized Calcium Bonny (4.5-5.3) mg/dL Phosphorus (2.5-4.5) mg/dL Magnesium (1.6-2.3) mg/dL ALT (21-72) U/L Alkaline Phosphatase (38-126) U/L Total Protein (6.3-8.2) g/dL Albumin (3.5-5.0) g/dL Crossmatch 03/16/17 03/16/17 Range/Units 10:00 10:52 RBC (4.30-5.90) m/uL Hgb (13.0-17.5) gm/dL Hct (39.0-53.0) % Plt Count (150-450) k/uL Lymphocytes # (1.0-4.8) k/uL PT (9.0-12.0) sec INR (<1.2) APTT (22.0-30.0) sec Fibrinogen (200-500) mg/dL ABG pH (7.35-7.45) ABG pCO2 (35-45) mmHg ABG pO2 (83-108) mmHg ABG Total CO2 (19-24) mmol/L ABG O2 Saturation (94-97) % ABG Hematocrit (34.0-46.0) % Chloride (98-107) mmol/L Glucose (74-99) mg/dL POC Glucose (mg/dL) 121 H 106 H (75-99) mg/dL Calcium (8.4-10.2) mg/dL Ionized Calcium Bonny (4.5-5.3) mg/dL Phosphorus (2.5-4.5) mg/dL Magnesium (1.6-2.3) mg/dL ALT (21-72) U/L Alkaline Phosphatase (38-126) U/L Total Protein (6.3-8.2) g/dL Albumin (3.5-5.0) g/dL Crossmatch - Imaging and Cardiology Chest x-ray: image reviewed Assessment and Plan (1) Carotid artery disease Status: Acute (2) Coronary artery disease Status: Acute (3) History of cancer tonsil Status: Acute (4) History of syncope Status: Acute (5) Hyperlipidemia Status: Acute (6) Hypertension Status: Acute (7) Tobacco dependence in remission Status: Acute Plan: 1. Continue Lipitor, beta lizz. Will maximize beta lizz therapy as tolerated. 2. Restart low-dose aspirin, Plavix, subcu heparin. 3. Encourage incentive spirometry use. Wean O2 as tolerated. 4. Increase activity, out of bed to chair. Physical therapy to follow. 5. Will monitor chest tube output, daily labs and x-rays. 6. Discontinue Tabiona-Katty catheter. 7. GI/DVT prophylaxis. 8. Insulin drip/diabetic management per primary care services. 9. More recommendations as patient progresses. Time with Patient: Less than 30 <Yg Doyle - Last Filed: 03/16/17 15:53> Objective - Vital Signs Vital signs: Vital Signs Temp 98.2 F 03/16/17 12:00 Pulse 90 03/16/17 15:00 Resp 22 03/16/17 15:00 BP 98/55 03/16/17 14:30 Pulse Ox 94 L 03/16/17 14:30 Intake & Output 03/15/17 03/16/17 03/16/17 18:59 06:59 18:59 Intake Total 2778 1749.808 468 Output Total 3478 1935 198 Balance -3710 -185.192 270 Weight 84.2 kg 84.2 kg Intake: IV 244 5841 468 ACETAMINOPHEN IV (For NPO 200 ) 1,000 mg In Empty Bag 1 bag @ 400 mls/hr IVPB Q6HR [facility] Rx#:[id number] CO/CI 80 Calcium Gluconate 2,000 100 mg In Sodium Chloride 0.9 % 100 ml @ 100 mls/hr IVPB ONCE ONE Rx#: [id number] Calcium Gluconate 2,000 100 mg In Sodium Chloride 0.9 % 100 ml @ 100 mls/hr IVPB ONCE PRN Rx#: [id number] Lactated Ringers 1,000 ml 300 350 150 @ 20 mls/hr IV .Q24H [facility] Rx#:[id number] Magnesium Sulfate-D5w Pmx 300 100 1 gm In Dextrose/Water 1 100ml.bag @ 100 mls/hr IVPB Q1H [facility] Rx#: [id number] Potassium Chloride 20 meq 100 In Water For Injection 1 100ml.bag @ 50 mls/hr IVPB ONCE ONE Rx#: [id number] Pressure Bag 81 18 Sodium Phosphate 10 mmol 250 In Sodium Chloride 0.9% 250 ml @ 125 mls/hr IVPB ONCE ONE Rx#:[id number] ceFAZolin 2 gm In Sodium 100 100 100 Chloride 0.9% 100 ml @ 100 mls/hr IVPB Q8HR [facility] Rx#:[id number] Intake, IV Titration 24.808 0 Amount Clevidipine Butyrate 25 10 mg In Empty Bag 1 bag @ 1 MG/HR 2 mls/hr IV .Q24H [facility] Rx#:[id number] Insulin Regular 100 unit 14.808 0 In Sodium Chloride 0.9% 100 ml @ Per Protocol IV .Q0M [facility] Rx#:[id number] Oral 120 Blood Product 2144 144 Cryoprecipitate Unit 10 [id number] Cryoprecipitate Unit 10 [id number] Cryoprecipitate Unit 10 [id number] Cryoprecipitate Unit 10 [id number] Cryoprecipitate Unit 10 [id number] Cryoprecipitate Unit 10 [id number] Cryoprecipitate Unit 10 [id number] Cryoprecipitate Unit 10 [id number] Cryoprecipitate Unit 10 [id number] Cryoprecipitate Unit 10 [id number] Ffp 24 Cp2d Unit 209 [id number] Ffp 24 Cp2d Unit 178 [id number] Ffp 24 Cpd Unit 317 [id number] Ffp 24 Cpda Unit 217 [id number] Platelet Pheresis Acda1 293 Unit [id number] Platelet Pheresis Acda2 44 Unit [id number] Rc As-1 Unit 310 [id number] Rc As-1 Unit 310 [id number] Rc As-1 Unit 310 [id number] Output: Chest Tube Drainage 800 810 80 Left Pleural 460 390 50 Mediastinal x 2 340 420 30 Gastric Drainage 0 Drainage 0 40 Left Calf 0 10 Right Medial Thigh 0 30 Urine 2238 1085 118 Estimated Blood Loss 3450 Other: Voiding Method Indwelling Catheter Indwelling Catheter Indwelling Catheter # Bowel Movements 0 0 ABP, PAP, CO, CI - Last Documented Arterial Blood Pressure 85/44 Pulmonary Artery Pressure 20/12 Cardiac Output 6 Cardiac Index 3.2 - Labs CBC & Chem 7: 03/16/17 04:05 03/16/17 04:05 Labs: Abnormal Lab Results - Last 24 Hours (Table) 03/13/17 03/15/17 03/15/17 Range/Units 09:07 09:00 10:18 RBC (4.30-5.90) m/uL Hgb (13.0-17.5) gm/dL Hct (39.0-53.0) % Plt Count (150-450) k/uL Lymphocytes # (1.0-4.8) k/uL PT (9.0-12.0) sec INR (<1.2) APTT (22.0-30.0) sec Fibrinogen (200-500) mg/dL ABG pH 7.31 L (7.35-7.45) ABG pCO2 33 L 48 H (35-45) mmHg ABG pO2 386 H 371 H (83-108) mmHg ABG Total CO2 25 H (19-24) mmol/L ABG O2 Saturation 100.0 H 99.9 H (94-97) % ABG Hematocrit 32 L (34.0-46.0) % Chloride (98-107) mmol/L Glucose (74-99) mg/dL POC Glucose (mg/dL) (75-99) mg/dL Calcium (8.4-10.2) mg/dL Ionized Calcium Bonny (4.5-5.3) mg/dL Phosphorus (2.5-4.5) mg/dL Magnesium (1.6-2.3) mg/dL Alkaline Phosphatase (38-126) U/L Total Protein (6.3-8.2) g/dL Crossmatch See Detail 03/15/17 03/15/17 03/15/17 Range/Units 10:44 11:10 12:05 RBC (4.30-5.90) m/uL Hgb (13.0-17.5) gm/dL Hct (39.0-53.0) % Plt Count (150-450) k/uL Lymphocytes # (1.0-4.8) k/uL PT (9.0-12.0) sec INR (<1.2) APTT (22.0-30.0) sec Fibrinogen (200-500) mg/dL ABG pH 7.30 L (7.35-7.45) ABG pCO2 (35-45) mmHg ABG pO2 379 H 412 H 398 H (83-108) mmHg ABG Total CO2 (19-24) mmol/L ABG O2 Saturation 100.0 H 100.0 H 99.9 H (94-97) % ABG Hematocrit 29 L 27 L 26 L (34.0-46.0) % Chloride (98-107) mmol/L Glucose (74-99) mg/dL POC Glucose (mg/dL) (75-99) mg/dL Calcium (8.4-10.2) mg/dL Ionized Calcium Bonny (4.5-5.3) mg/dL Phosphorus (2.5-4.5) mg/dL Magnesium (1.6-2.3) mg/dL Alkaline Phosphatase (38-126) U/L Total Protein (6.3-8.2) g/dL Crossmatch 03/15/17 03/15/17 03/15/17 Range/Units 12:30 13:13 13:40 RBC (4.30-5.90) m/uL Hgb (13.0-17.5) gm/dL Hct (39.0-53.0) % Plt Count (150-450) k/uL Lymphocytes # (1.0-4.8) k/uL PT (9.0-12.0) sec INR (<1.2) APTT (22.0-30.0) sec Fibrinogen (200-500) mg/dL ABG pH 7.29 L (7.35-7.45) ABG pCO2 49 H (35-45) mmHg ABG pO2 375 H 51 L 340 H (83-108) mmHg ABG Total CO2 25 H (19-24) mmol/L ABG O2 Saturation 100.0 H 81.3 L 99.9 H (94-97) % ABG Hematocrit 23 L 17 L* 19 L* (34.0-46.0) % Chloride (98-107) mmol/L Glucose (74-99) mg/dL POC Glucose (mg/dL) (75-99) mg/dL Calcium (8.4-10.2) mg/dL Ionized Calcium Bonny (4.5-5.3) mg/dL Phosphorus (2.5-4.5) mg/dL Magnesium (1.6-2.3) mg/dL Alkaline Phosphatase (38-126) U/L Total Protein (6.3-8.2) g/dL Crossmatch 03/15/17 03/15/17 03/15/17 Range/Units 15:00 15:28 16:02 RBC (4.30-5.90) m/uL Hgb (13.0-17.5) gm/dL Hct (39.0-53.0) % Plt Count (150-450) k/uL Lymphocytes # (1.0-4.8) k/uL PT (9.0-12.0) sec INR (<1.2) APTT (22.0-30.0) sec Fibrinogen 98 L* (200-500) mg/dL ABG pH (7.35-7.45) ABG pCO2 (35-45) mmHg ABG pO2 >400 H (83-108) mmHg ABG Total CO2 (19-24) mmol/L ABG O2 Saturation 100.0 H (94-97) % ABG Hematocrit (34.0-46.0) % Chloride (98-107) mmol/L Glucose (74-99) mg/dL POC Glucose (mg/dL) 156 H (75-99) mg/dL Calcium (8.4-10.2) mg/dL Ionized Calcium Bonny (4.5-5.3) mg/dL Phosphorus (2.5-4.5) mg/dL Magnesium (1.6-2.3) mg/dL Alkaline Phosphatase (38-126) U/L Total Protein (6.3-8.2) g/dL Crossmatch 03/15/17 03/15/17 03/15/17 Range/Units 17:02 18:30 18:30 RBC 2.58 L (4.30-5.90) m/uL Hgb 8.2 L (13.0-17.5) gm/dL Hct 23.1 L (39.0-53.0) % Plt Count 106 L (150-450) k/uL Lymphocytes # 0.5 L (1.0-4.8) k/uL PT 13.3 H (9.0-12.0) sec INR 1.4 H (<1.2) APTT 33.8 H (22.0-30.0) sec Fibrinogen (200-500) mg/dL ABG pH (7.35-7.45) ABG pCO2 (35-45) mmHg ABG pO2 (83-108) mmHg ABG Total CO2 (19-24) mmol/L ABG O2 Saturation (94-97) % ABG Hematocrit (34.0-46.0) % Chloride (98-107) mmol/L Glucose (74-99) mg/dL POC Glucose (mg/dL) 147 H (75-99) mg/dL Calcium (8.4-10.2) mg/dL Ionized Calcium Bonny (4.5-5.3) mg/dL Phosphorus (2.5-4.5) mg/dL Magnesium (1.6-2.3) mg/dL Alkaline Phosphatase (38-126) U/L Total Protein (6.3-8.2) g/dL Crossmatch 03/15/17 03/15/17 03/15/17 Range/Units 18:30 18:40 20:49 RBC (4.30-5.90) m/uL Hgb (13.0-17.5) gm/dL Hct (39.0-53.0) % Plt Count (150-450) k/uL Lymphocytes # (1.0-4.8) k/uL PT (9.0-12.0) sec INR (<1.2) APTT (22.0-30.0) sec Fibrinogen (200-500) mg/dL ABG pH (7.35-7.45) ABG pCO2 (35-45) mmHg ABG pO2 171 H (83-108) mmHg ABG Total CO2 (19-24) mmol/L ABG O2 Saturation 100.0 H (94-97) % ABG Hematocrit (34.0-46.0) % Chloride 108 H (98-107) mmol/L Glucose 106 H (74-99) mg/dL POC Glucose (mg/dL) 154 H (75-99) mg/dL Calcium 7.7 L (8.4-10.2) mg/dL Ionized Calcium Bonny (4.5-5.3) mg/dL Phosphorus 2.3 L (2.5-4.5) mg/dL Magnesium 1.5 L (1.6-2.3) mg/dL Alkaline Phosphatase (38-126) U/L Total Protein (6.3-8.2) g/dL Crossmatch 03/15/17 03/15/17 03/15/17 Range/Units 21:08 22:01 22:03 RBC 2.43 L (4.30-5.90) m/uL Hgb 7.5 L (13.0-17.5) gm/dL Hct 21.2 L (39.0-53.0) % Plt Count 123 L (150-450) k/uL Lymphocytes # 0.2 L (1.0-4.8) k/uL PT (9.0-12.0) sec INR (<1.2) APTT (22.0-30.0) sec Fibrinogen (200-500) mg/dL ABG pH (7.35-7.45) ABG pCO2 (35-45) mmHg ABG pO2 (83-108) mmHg ABG Total CO2 (19-24) mmol/L ABG O2 Saturation (94-97) % ABG Hematocrit (34.0-46.0) % Chloride (98-107) mmol/L Glucose (74-99) mg/dL POC Glucose (mg/dL) 73 L 128 H (75-99) mg/dL Calcium (8.4-10.2) mg/dL Ionized Calcium Bonny (4.5-5.3) mg/dL Phosphorus (2.5-4.5) mg/dL Magnesium (1.6-2.3) mg/dL Alkaline Phosphatase (38-126) U/L Total Protein (6.3-8.2) g/dL Crossmatch 03/15/17 03/15/17 03/16/17 Range/Units 23:01 23:54 03:07 RBC (4.30-5.90) m/uL Hgb (13.0-17.5) gm/dL Hct (39.0-53.0) % Plt Count (150-450) k/uL Lymphocytes # (1.0-4.8) k/uL PT (9.0-12.0) sec INR (<1.2) APTT (22.0-30.0) sec Fibrinogen (200-500) mg/dL ABG pH (7.35-7.45) ABG pCO2 (35-45) mmHg ABG pO2 (83-108) mmHg ABG Total CO2 (19-24) mmol/L ABG O2 Saturation (94-97) % ABG Hematocrit (34.0-46.0) % Chloride (98-107) mmol/L Glucose (74-99) mg/dL POC Glucose (mg/dL) 116 H 119 H 100 H (75-99) mg/dL Calcium (8.4-10.2) mg/dL Ionized Calcium Bonny (4.5-5.3) mg/dL Phosphorus (2.5-4.5) mg/dL Magnesium (1.6-2.3) mg/dL Alkaline Phosphatase (38-126) U/L Total Protein (6.3-8.2) g/dL Crossmatch 03/16/17 03/16/17 03/16/17 Range/Units 04:02 04:05 04:05 RBC 2.47 L (4.30-5.90) m/uL Hgb 7.7 L (13.0-17.5) gm/dL Hct 22.0 L (39.0-53.0) % Plt Count 134 L (150-450) k/uL Lymphocytes # 0.4 L (1.0-4.8) k/uL PT (9.0-12.0) sec INR (<1.2) APTT (22.0-30.0) sec Fibrinogen (200-500) mg/dL ABG pH (7.35-7.45) ABG pCO2 (35-45) mmHg ABG pO2 (83-108) mmHg ABG Total CO2 (19-24) mmol/L ABG O2 Saturation (94-97) % ABG Hematocrit (34.0-46.0) % Chloride (98-107) mmol/L Glucose 124 H (74-99) mg/dL POC Glucose (mg/dL) 140 H (75-99) mg/dL Calcium 7.8 L (8.4-10.2) mg/dL Ionized Calcium Bonny 4.4 L (4.5-5.3) mg/dL Phosphorus (2.5-4.5) mg/dL Magnesium (1.6-2.3) mg/dL Alkaline Phosphatase 35 L (38-126) U/L Total Protein 5.1 L (6.3-8.2) g/dL Crossmatch 03/16/17 03/16/17 03/16/17 Range/Units 05:09 06:12 07:04 RBC (4.30-5.90) m/uL Hgb (13.0-17.5) gm/dL Hct (39.0-53.0) % Plt Count (150-450) k/uL Lymphocytes # (1.0-4.8) k/uL PT (9.0-12.0) sec INR (<1.2) APTT (22.0-30.0) sec Fibrinogen (200-500) mg/dL ABG pH (7.35-7.45) ABG pCO2 (35-45) mmHg ABG pO2 (83-108) mmHg ABG Total CO2 (19-24) mmol/L ABG O2 Saturation (94-97) % ABG Hematocrit (34.0-46.0) % Chloride (98-107) mmol/L Glucose (74-99) mg/dL POC Glucose (mg/dL) 130 H 107 H 117 H (75-99) mg/dL Calcium (8.4-10.2) mg/dL Ionized Calcium Bonny (4.5-5.3) mg/dL Phosphorus (2.5-4.5) mg/dL Magnesium (1.6-2.3) mg/dL Alkaline Phosphatase (38-126) U/L Total Protein (6.3-8.2) g/dL Crossmatch 03/16/17 03/16/17 03/16/17 Range/Units 07:58 08:53 10:00 RBC (4.30-5.90) m/uL Hgb (13.0-17.5) gm/dL Hct (39.0-53.0) % Plt Count (150-450) k/uL Lymphocytes # (1.0-4.8) k/uL PT (9.0-12.0) sec INR (<1.2) APTT (22.0-30.0) sec Fibrinogen (200-500) mg/dL ABG pH (7.35-7.45) ABG pCO2 (35-45) mmHg ABG pO2 (83-108) mmHg ABG Total CO2 (19-24) mmol/L ABG O2 Saturation (94-97) % ABG Hematocrit (34.0-46.0) % Chloride (98-107) mmol/L Glucose (74-99) mg/dL POC Glucose (mg/dL) 135 H 146 H 121 H (75-99) mg/dL Calcium (8.4-10.2) mg/dL Ionized Calcium Bonny (4.5-5.3) mg/dL Phosphorus (2.5-4.5) mg/dL Magnesium (1.6-2.3) mg/dL Alkaline Phosphatase (38-126) U/L Total Protein (6.3-8.2) g/dL Crossmatch 03/16/17 03/16/17 03/16/17 Range/Units 10:52 12:02 13:02 RBC (4.30-5.90) m/uL Hgb (13.0-17.5) gm/dL Hct (39.0-53.0) % Plt Count (150-450) k/uL Lymphocytes # (1.0-4.8) k/uL PT (9.0-12.0) sec INR (<1.2) APTT (22.0-30.0) sec Fibrinogen (200-500) mg/dL ABG pH (7.35-7.45) ABG pCO2 (35-45) mmHg ABG pO2 (83-108) mmHg ABG Total CO2 (19-24) mmol/L ABG O2 Saturation (94-97) % ABG Hematocrit (34.0-46.0) % Chloride (98-107) mmol/L Glucose (74-99) mg/dL POC Glucose (mg/dL) 106 H 100 H 120 H (75-99) mg/dL Calcium (8.4-10.2) mg/dL Ionized Calcium Bonny (4.5-5.3) mg/dL Phosphorus (2.5-4.5) mg/dL Magnesium (1.6-2.3) mg/dL Alkaline Phosphatase (38-126) U/L Total Protein (6.3-8.2) g/dL Crossmatch 03/16/17 Range/Units 14:33 RBC (4.30-5.90) m/uL Hgb (13.0-17.5) gm/dL Hct (39.0-53.0) % Plt Count (150-450) k/uL Lymphocytes # (1.0-4.8) k/uL PT (9.0-12.0) sec INR (<1.2) APTT (22.0-30.0) sec Fibrinogen (200-500) mg/dL ABG pH (7.35-7.45) ABG pCO2 (35-45) mmHg ABG pO2 (83-108) mmHg ABG Total CO2 (19-24) mmol/L ABG O2 Saturation (94-97) % ABG Hematocrit (34.0-46.0) % Chloride (98-107) mmol/L Glucose (74-99) mg/dL POC Glucose (mg/dL) 106 H (75-99) mg/dL Calcium (8.4-10.2) mg/dL Ionized Calcium Bonny (4.5-5.3) mg/dL Phosphorus (2.5-4.5) mg/dL Magnesium (1.6-2.3) mg/dL Alkaline Phosphatase (38-126) U/L Total Protein (6.3-8.2) g/dL Crossmatch Assessment and Plan Plan: The patient was seen and examined. I agree with the above assessment and plan. Overall he looks good today. His chest tube output has certainly slowed down. His hemoglobin this morning is 7.7. Discontinue his [place]-Katty catheter. We'll get him out of bed to a chair and encourage incentive spirometry. Beta lizz, aspirin, and Plavix will be given as well.
[2017-03-16 12:03] LABS: Glucose,Whole Blood 100 mg/dL (75-99)
--- NOTE | 2017-03-16 12:39 | OP ---
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 PROCEDURE: 1. Off pump non-aortic clamp quadruple coronary artery bypass grafting using the left internal mammary to the left anterior descending artery,. reverse saphenous vein graft connected to the aorta using Pas-Port device and connected distally to the right coronary artery before the bifurcation,. reverse saphenous vein graft connected to the aorta using the Pas-port device and connected distally to the lateral branching of the first diagonal artery, reverse saphenous vein graft connected to the aortic using the Pas-port device and connected distally to the second obtuse marginal artery. 4. Bilateral endoscopic harvesting of the greater saphenous vein except for the segment below the left knee. 5. Epiaortic scanning and graft flow measurements using the [facility] system.. INDICATIONS FOR SURGERY: The patient is a 71 year old gentleman with the above comorbidities with typical anginal chest pain who underwent cardiac catheterization as well as an arch study as this was planned by a vascular surgeon in [place] and those showed triple vessel coronary artery disease with left main disease. He also had a ring like stenosis that was in the range of 80% of the right internal carotid artery and 50% left internal carotid artery stenosis. The patient was then brought in today for coronary artery bypass grafting that we plan to do on a beating heart in view of his carotid disease. Risks, benefits and alternatives were discussed with him. He understood and agreed to proceed. DESCRIPTION OF THE PROCEDURE: With the patient in supine position, right internal jugular [place] Katty catheter and right radial arterial line were placed. His cardiac index was 3 and he had normal PA pressure. Subsequently, he was brought to the operating room where general endotracheal anesthesia was introduced uneventfully despite radiation to his neck. However, the RENE probe could not be inserted and that was aborted. We were able to put an OG tube. The Edwards catheter was placed. The patient received 2 gm of Cefazolin intravenously. The chest, abdomen and both lower extremities were prepped and draped using ChloraPrep. Ioban was used to cover the skin. Midline sternotomy was performed and then the bone was moderately osteopenic. The left hemisternum was elevated and the left internal mammary artery was harvested and in a semi- skeletonized fashion. The left pleura was intentionally opened in this process and was drained with a 28 [place] tube. The right pleura remained grossly intact. No bone wax was used. In the same setting, initially the right greater saphenous vein and subsequently the left greater saphenous vein between groins and knee were harvested. Branches were tied. Leg incisions were closed over drain. Finally we had suitable segments of vein that were around 4 mm in diameter and moderately thickened. Mediastinal fat was transected between two ties and epiaortic screening revealed concentric intimal thickening but no protruding atheroma in the ascending aorta. Pericardium was opened in an inverted T-fashion and a pericardial cradle was created. Findings included soft aorta and normal sized heart with evidence of diffuse coronary artery disease that was visible. Heparinization to achieve an ACT level of 260 seconds was administered. The ACT was repeated every 20 to 30 minutes and additional heparin given if needed. The acrobat system along with the X-pose device were used to perform surgery on the beating heart. Left internal mammary artery was doubly clipped distally and transected. It had an excellent pulsatile flow in it and was around 1.5 mm in diameter. The first anastomosis was between the left internal mammary artery and the diffusely disease left anterior descending artery in its mid segment. That artery was opened. It had profuse flow in it and accepted a 1.5 mm shunt. The anastomosis was completed using Prolene 7/0 in a continuous fashion. The shunt was removed before completing the anastomosis which was hemostatic. The mammary pedicle was affixed to the precordium with a Prolene 6-0 sutures. Subsequently using the X-pose device, we looked at the inferior wall. We knew that the right coronary artery would be the site for bypass as the tributaries were small. it was diseased but with soft plaque at the bifurcation. The distance to the aorta was measured. We looked at the lateral wall and the lateral branching of the diagonal artery had a very focal plaque in it and arteriotomy eventually went through that plaque and this was the site for bypass and the distance to the aorta was measured. The third target was the second obtuse marginal artery in its mid segment but it was soft, thin walled and the distance to the aorta was measured. Three segments of vein were fashioned accordingly, loaded on three pas-port device and deployed on the ascending aorta for the proximal anastomosis. The most cephalad proximal anastomosis on the left side going to the obtuse marginal artery required 6-0 Prolene at its toe to control oozing. There was excellent flow from all vein ends. The second distal anastomosis was between the vein graft already connected to the aorta and the second obtuse marginal artery which was opened had profuse flow in it, accepted a 1.5 mm shunt using Prolene 7-0 in continuous fashion. The vein was de-aired and the shunt was removed before completing the anastomosis which was well tolerated. The third distal anastomosis between the vein graft already connected to the aorta and the lateral branching of the diagonal artery which was opened across the focal plaque with around 1.5 mm diameter and accepted a 1.5 mm shunt and the anastomosis was completed using Prolene 7-0 in continuous fashion. Vein was de-aired and the shunt was removed before completing the anastomosis which was hemostatic. The fourth and last distal anastomosis was between the vein graft already connected to the aorta and the right coronary artery before its bifurcation. That artery was opened and had profuse flow in it, accepted a 3 mm shunt and the anastomosis was completed using Prolene 7-0 in a continuous fashion. The vein was deaired and the shunt was removed before completing the anastomosis which was well tolerated. Satisfied with the proximal and distal anastomosis, test dose than full dose protamine was given. A groove was made in the left pleuro-pericardial fat to accomodate the mammary artery medial to the lung and away from the posterior sternal table. Two 32 [place] chest tubes were placed substernally. The pericardial was approximated over the aorta and the heart covering all grafts. Some of the pericardial fat was draped over the right ventricle also. We measured the graft flows and the flow was excellent in all four grafts. The flow into the left internal mammary artery was 152 mL per minute, pulsatility index of 2.4 and diastolic fraction of 75% showing excellent graft. The flow into the vein going to the diagonal was 107 mL per minute, pulsatility index of 1 and diastolic filling 62%. The flow into the vein going into the obtuse marginal artery was 129 mL per minute with a pulsatility index of 1.1 and diastolic filling 64%. The flow into the vein going into the right coronary artery was 119 mL per minute. Pulsatility index 0.9, diastolic filling 58% showing an excellent function graft. After ensuring adequate hemostasis, and hemodynamics despite the patient being a bit oozy, the sternum was approximated using six interrupted stainless steel wires after interposing fibrillar between the sternal edges. Thorough irrigation with Cefazolin followed. The rest of the closure proceeded in layers. Skin glue was applied. The patient received 1.3 L of cell saver, 1 unit of packed red blood cells, 2 units of FFP and 6 units of platelets. He was transferred to the ICU with normal EKG. Normal PA pressure, cardiac index 2.1. MTDD
--- NOTE | 2017-03-16 12:42 | P.PN ---
Subjective A 71-year-old male patient who is post coronary artery bypass surgery and I was asked to be involved in the critical care management and vent management. This patient was having increased chest discomfort typical of angina. The patient underwent cardiac catheterization and demonstrated 40% proximal RCA lesion 40-50 % mid RCA lesion, 40% narrowing in the left main, 70% disease in the proximal LAD and 70% diagonal branch, 80% diagonal branch, 90% first of diffuse marginal branch and 5060% in the circumflex. Our study was done and the patient showed to have severe disease involving the right internal carotid artery disease and intermediate disease involving the left common carotid and left internal carotid artery. He is known to have hypertension. Hyperlipidemia. The patient underwent off-pump coronary artery bypass surgery with CASTELLANOS to LAD, saphenous vein graft to diagonal, obtuse marginal and RCA. Currently intubated on a mechanical ventilator and sedated with Diprivan. His assist-control mode of ventilation at the rate of 12, tidal volume 500, FiO2 of 40% and a PEEP of 5. The patient immediate postoperative blood This showed a pH of 7.35 with a pCO2 of 42 and pO2 of 513 and based on that the FiO2 was dropped from 100% on to 40%. His saturation remains around 97%. Chest x-ray shows adequate expansion of both lungs without evidence of any pneumothorax. ET tube is in a good location. The patient has 2 mediastinal chest tubes and 1 pleural chest tube all of them were actively draining since his surgery and his drainage has slowed down over the past few hours. The patient required to be given a total of 2 units of packed RBC intraoperatively, 4 units of fresh frozen plasma and 5 platelet concentrates. The hemoglobin at this point is on 7.0 and the patient is receiving another unit of packed RBC. PA pressures around 30/12 and the cardiac index is 2.7. The patient has received 2, 5% albumin's drapes. Currently the patient is on clevidipine for blood pressure control and insulin drip. Producing adequate amount of urine output. Creatinine is at 1.1. Hemodynamically stable. Ionized calcium was low and the patient was given 2 g of calcium gluconate. On 03/16/2017 the patient is extubated. The patient got extubated yesterday without any major difficulties and currently is on room air. Oximetry well. No desaturations. Using incentive spirometer. Sternum stable clean and intact. The mediastinal and the pleural chest tubes are still in place and output has dropped considerably. Hemoglobin is stable and the patient had received a total of 3 units of packed RBCs. The [place] have been removed and the cordis still in place. Chest x-ray from today shows postsurgical changes without evidence of any pneumothorax and the lungs are well expanded bilaterally. The patient is on no pressors. The patient on insulin drip at 2.5 units an hour which will be switched to subcu coverage. He had some clear liquid diet earlier this morning. No bowel movements yet. Sitting up on a chair. No cardiac arrhythmias of been noted. Afebrile. No other significant events overnight. Urine output is adequate more than 25 mL an hour. Objective - Vital Signs Vital signs: Vital Signs Temp 99.5 F 03/16/17 04:00 Pulse 85 03/16/17 08:30 Resp 20 03/16/17 08:30 BP 95/50 03/16/17 08:30 Pulse Ox 97 03/16/17 10:44 Intake & Output 03/15/17 03/16/17 03/16/17 18:59 06:59 18:59 Intake Total 2778 1749.808 468 Output Total 6488 1935 198 Balance -3710 -185.192 270 Weight 84.2 kg 84.2 kg Intake: IV 634 1461 468 ACETAMINOPHEN IV (For NPO 200 ) 1,000 mg In Empty Bag 1 bag @ 400 mls/hr IVPB Q6HR [facility] Rx#:[id number] CO/CI 80 Calcium Gluconate 2,000 100 mg In Sodium Chloride 0.9 % 100 ml @ 100 mls/hr IVPB ONCE ONE Rx#: [id number] Calcium Gluconate 2,000 100 mg In Sodium Chloride 0.9 % 100 ml @ 100 mls/hr IVPB ONCE PRN Rx#: [id number] Lactated Ringers 1,000 ml 300 350 150 @ 20 mls/hr IV .Q24H [facility] Rx#:[id number] Magnesium Sulfate-D5w Pmx 300 100 1 gm In Dextrose/Water 1 100ml.bag @ 100 mls/hr IVPB Q1H [facility] Rx#: [id number] Potassium Chloride 20 meq 100 In Water For Injection 1 100ml.bag @ 50 mls/hr IVPB ONCE ONE Rx#: [id number] Pressure Bag 81 18 Sodium Phosphate 10 mmol 250 In Sodium Chloride 0.9% 250 ml @ 125 mls/hr IVPB ONCE ONE Rx#:[id number] ceFAZolin 2 gm In Sodium 100 100 100 Chloride 0.9% 100 ml @ 100 mls/hr IVPB Q8HR [facility] Rx#:[id number] Intake, IV Titration 24.808 0 Amount Clevidipine Butyrate 25 10 mg In Empty Bag 1 bag @ 1 MG/HR 2 mls/hr IV .Q24H [facility] Rx#:[id number] Insulin Regular 100 unit 14.808 0 In Sodium Chloride 0.9% 100 ml @ Per Protocol IV .Q0M [facility] Rx#:[id number] Oral 120 Blood Product 2144 144 Cryoprecipitate Unit 10 [id number] Cryoprecipitate Unit 10 [id number] Cryoprecipitate Unit 10 [id number] Cryoprecipitate Unit 10 [id number] Cryoprecipitate Unit 10 [id number] Cryoprecipitate Unit 10 [id number] Cryoprecipitate Unit 10 [id number] Cryoprecipitate Unit 10 [id number] Cryoprecipitate Unit 10 [id number] Cryoprecipitate Unit 10 [id number] Ffp 24 Cp2d Unit 209 [id number] Ffp 24 Cp2d Unit 178 [id number] Ffp 24 Cpd Unit 317 [id number] Ffp 24 Cpda Unit 217 [id number] Platelet Pheresis Acda1 293 Unit [id number] Platelet Pheresis Acda2 44 Unit [id number] Rc As-1 Unit 310 [id number] Rc As-1 Unit 310 [id number] Rc As-1 Unit 310 [id number] Output: Chest Tube Drainage 800 810 80 Left Pleural 460 390 50 Mediastinal x 2 340 420 30 Gastric Drainage 0 Drainage 0 40 Left Calf 0 10 Right Medial Thigh 0 30 Urine 2238 1085 118 Estimated Blood Loss 3450 Other: Voiding Method Indwelling Catheter Indwelling Catheter # Bowel Movements 0 0 ABP, PAP, CO, CI - Last Documented Arterial Blood Pressure 137/61 Pulmonary Artery Pressure 20/13 Cardiac Output 6 Cardiac Index 3.2 - Exam Head exam was generally normal. There was no scleral icterus or corneal arcus. Mucous membranes were moist. Neck is supple and the patient has a right IJ Cordis in place. Mucous membranes are dry. Distal with or neck masses. Lungs sounds are diminished bilaterally. Sternum stable clean and intact. The patient has 2 mediastinal chest tubes and 1 pleural chest tube on the left. Heart sounds are regular and there is a pericardial rub. Positive S1-S2. No significant murmurs appreciated.Abdominal exam revealed normal bowel sounds. The abdomen was soft, non-tender, and without masses, organomegaly, or appreciable enlargement of the abdominal aorta.Examination of the extremities revealed easily palpable radial, femoral and pedal pulses. There was no cyanosis , clubbing or edema. - Labs CBC & Chem 7: 03/16/17 04:05 03/16/17 04:05 Labs: Abnormal Lab Results - Last 24 Hours (Table) 03/13/17 03/15/17 03/15/17 Range/Units 09:07 09:00 10:18 RBC (4.30-5.90) m/uL Hgb (13.0-17.5) gm/dL Hct (39.0-53.0) % Plt Count (150-450) k/uL Lymphocytes # (1.0-4.8) k/uL PT (9.0-12.0) sec INR (<1.2) APTT (22.0-30.0) sec Fibrinogen (200-500) mg/dL ABG pH 7.31 L (7.35-7.45) ABG pCO2 33 L 48 H (35-45) mmHg ABG pO2 386 H 371 H (83-108) mmHg ABG Total CO2 25 H (19-24) mmol/L ABG O2 Saturation 100.0 H 99.9 H (94-97) % ABG Hematocrit 32 L (34.0-46.0) % Chloride (98-107) mmol/L Glucose (74-99) mg/dL POC Glucose (mg/dL) (75-99) mg/dL Calcium (8.4-10.2) mg/dL Ionized Calcium Bonny (4.5-5.3) mg/dL Phosphorus (2.5-4.5) mg/dL Magnesium (1.6-2.3) mg/dL ALT (21-72) U/L Alkaline Phosphatase (38-126) U/L Total Protein (6.3-8.2) g/dL Albumin (3.5-5.0) g/dL Crossmatch See Detail 03/15/17 03/15/17 03/15/17 Range/Units 10:44 11:10 12:05 RBC (4.30-5.90) m/uL Hgb (13.0-17.5) gm/dL Hct (39.0-53.0) % Plt Count (150-450) k/uL Lymphocytes # (1.0-4.8) k/uL PT (9.0-12.0) sec INR (<1.2) APTT (22.0-30.0) sec Fibrinogen (200-500) mg/dL ABG pH 7.30 L (7.35-7.45) ABG pCO2 (35-45) mmHg ABG pO2 379 H 412 H 398 H (83-108) mmHg ABG Total CO2 (19-24) mmol/L ABG O2 Saturation 100.0 H 100.0 H 99.9 H (94-97) % ABG Hematocrit 29 L 27 L 26 L (34.0-46.0) % Chloride (98-107) mmol/L Glucose (74-99) mg/dL POC Glucose (mg/dL) (75-99) mg/dL Calcium (8.4-10.2) mg/dL Ionized Calcium Bonny (4.5-5.3) mg/dL Phosphorus (2.5-4.5) mg/dL Magnesium (1.6-2.3) mg/dL ALT (21-72) U/L Alkaline Phosphatase (38-126) U/L Total Protein (6.3-8.2) g/dL Albumin (3.5-5.0) g/dL Crossmatch 03/15/17 03/15/17 03/15/17 Range/Units 12:30 12:30 13:06 RBC (4.30-5.90) m/uL Hgb (13.0-17.5) gm/dL Hct (39.0-53.0) % Plt Count (150-450) k/uL Lymphocytes # (1.0-4.8) k/uL PT (9.0-12.0) sec INR (<1.2) APTT (22.0-30.0) sec Fibrinogen (200-500) mg/dL ABG pH (7.35-7.45) ABG pCO2 (35-45) mmHg ABG pO2 375 H (83-108) mmHg ABG Total CO2 25 H (19-24) mmol/L ABG O2 Saturation 100.0 H (94-97) % ABG Hematocrit 23 L (34.0-46.0) % Chloride (98-107) mmol/L Glucose (74-99) mg/dL POC Glucose (mg/dL) 139 H 107 H (75-99) mg/dL Calcium (8.4-10.2) mg/dL Ionized Calcium Bonny (4.5-5.3) mg/dL Phosphorus (2.5-4.5) mg/dL Magnesium (1.6-2.3) mg/dL ALT (21-72) U/L Alkaline Phosphatase (38-126) U/L Total Protein (6.3-8.2) g/dL Albumin (3.5-5.0) g/dL Crossmatch 03/15/17 03/15/17 03/15/17 Range/Units 13:08 13:13 13:13 RBC (4.30-5.90) m/uL Hgb (13.0-17.5) gm/dL Hct (39.0-53.0) % Plt Count (150-450) k/uL Lymphocytes # (1.0-4.8) k/uL PT (9.0-12.0) sec INR (<1.2) APTT (22.0-30.0) sec Fibrinogen (200-500) mg/dL ABG pH 7.29 L (7.35-7.45) ABG pCO2 49 H (35-45) mmHg ABG pO2 51 L (83-108) mmHg ABG Total CO2 (19-24) mmol/L ABG O2 Saturation 81.3 L (94-97) % ABG Hematocrit 17 L* (34.0-46.0) % Chloride (98-107) mmol/L Glucose (74-99) mg/dL POC Glucose (mg/dL) 109 H 120 H (75-99) mg/dL Calcium (8.4-10.2) mg/dL Ionized Calcium Bonny (4.5-5.3) mg/dL Phosphorus (2.5-4.5) mg/dL Magnesium (1.6-2.3) mg/dL ALT (21-72) U/L Alkaline Phosphatase (38-126) U/L Total Protein (6.3-8.2) g/dL Albumin (3.5-5.0) g/dL Crossmatch 03/15/17 03/15/17 03/15/17 Range/Units 13:39 13:40 15:00 RBC (4.30-5.90) m/uL Hgb (13.0-17.5) gm/dL Hct (39.0-53.0) % Plt Count (150-450) k/uL Lymphocytes # (1.0-4.8) k/uL PT (9.0-12.0) sec INR (<1.2) APTT (22.0-30.0) sec Fibrinogen 98 L* (200-500) mg/dL ABG pH (7.35-7.45) ABG pCO2 (35-45) mmHg ABG pO2 340 H (83-108) mmHg ABG Total CO2 (19-24) mmol/L ABG O2 Saturation 99.9 H (94-97) % ABG Hematocrit 19 L* (34.0-46.0) % Chloride (98-107) mmol/L Glucose (74-99) mg/dL POC Glucose (mg/dL) 124 H (75-99) mg/dL Calcium (8.4-10.2) mg/dL Ionized Calcium Bonny (4.5-5.3) mg/dL Phosphorus (2.5-4.5) mg/dL Magnesium (1.6-2.3) mg/dL ALT (21-72) U/L Alkaline Phosphatase (38-126) U/L Total Protein (6.3-8.2) g/dL Albumin (3.5-5.0) g/dL Crossmatch 03/15/17 03/15/17 03/15/17 Range/Units 15:05 15:05 15:05 RBC 2.30 L (4.30-5.90) m/uL Hgb 7.0 L* D (13.0-17.5) gm/dL Hct 20.3 L (39.0-53.0) % Plt Count 81 L D (150-450) k/uL Lymphocytes # 0.7 L (1.0-4.8) k/uL PT 16.4 H (9.0-12.0) sec INR 1.7 H (<1.2) APTT 43.3 H (22.0-30.0) sec Fibrinogen (200-500) mg/dL ABG pH (7.35-7.45) ABG pCO2 (35-45) mmHg ABG pO2 (83-108) mmHg ABG Total CO2 (19-24) mmol/L ABG O2 Saturation (94-97) % ABG Hematocrit (34.0-46.0) % Chloride 109 H (98-107) mmol/L Glucose 125 H (74-99) mg/dL POC Glucose (mg/dL) (75-99) mg/dL Calcium 6.7 L (8.4-10.2) mg/dL Ionized Calcium Bonny 3.7 L (4.5-5.3) mg/dL Phosphorus (2.5-4.5) mg/dL Magnesium 1.4 L (1.6-2.3) mg/dL ALT 18 L (21-72) U/L Alkaline Phosphatase 24 L (38-126) U/L Total Protein 4.2 L (6.3-8.2) g/dL Albumin 2.8 L (3.5-5.0) g/dL Crossmatch 03/15/17 03/15/17 03/15/17 Range/Units 15:08 15:28 16:02 RBC (4.30-5.90) m/uL Hgb (13.0-17.5) gm/dL Hct (39.0-53.0) % Plt Count (150-450) k/uL Lymphocytes # (1.0-4.8) k/uL PT (9.0-12.0) sec INR (<1.2) APTT (22.0-30.0) sec Fibrinogen (200-500) mg/dL ABG pH (7.35-7.45) ABG pCO2 (35-45) mmHg ABG pO2 >400 H (83-108) mmHg ABG Total CO2 (19-24) mmol/L ABG O2 Saturation 100.0 H (94-97) % ABG Hematocrit (34.0-46.0) % Chloride (98-107) mmol/L Glucose (74-99) mg/dL POC Glucose (mg/dL) 149 H 156 H (75-99) mg/dL Calcium (8.4-10.2) mg/dL Ionized Calcium Bonny (4.5-5.3) mg/dL Phosphorus (2.5-4.5) mg/dL Magnesium (1.6-2.3) mg/dL ALT (21-72) U/L Alkaline Phosphatase (38-126) U/L Total Protein (6.3-8.2) g/dL Albumin (3.5-5.0) g/dL Crossmatch 03/15/17 03/15/17 03/15/17 Range/Units 17:02 18:30 18:30 RBC 2.58 L (4.30-5.90) m/uL Hgb 8.2 L (13.0-17.5) gm/dL Hct 23.1 L (39.0-53.0) % Plt Count 106 L (150-450) k/uL Lymphocytes # 0.5 L (1.0-4.8) k/uL PT 13.3 H (9.0-12.0) sec INR 1.4 H (<1.2) APTT 33.8 H (22.0-30.0) sec Fibrinogen (200-500) mg/dL ABG pH (7.35-7.45) ABG pCO2 (35-45) mmHg ABG pO2 (83-108) mmHg ABG Total CO2 (19-24) mmol/L ABG O2 Saturation (94-97) % ABG Hematocrit (34.0-46.0) % Chloride (98-107) mmol/L Glucose (74-99) mg/dL POC Glucose (mg/dL) 147 H (75-99) mg/dL Calcium (8.4-10.2) mg/dL Ionized Calcium Bonny (4.5-5.3) mg/dL Phosphorus (2.5-4.5) mg/dL Magnesium (1.6-2.3) mg/dL ALT (21-72) U/L Alkaline Phosphatase (38-126) U/L Total Protein (6.3-8.2) g/dL Albumin (3.5-5.0) g/dL Crossmatch 03/15/17 03/15/17 03/15/17 Range/Units 18:30 18:40 20:49 RBC (4.30-5.90) m/uL Hgb (13.0-17.5) gm/dL Hct (39.0-53.0) % Plt Count (150-450) k/uL Lymphocytes # (1.0-4.8) k/uL PT (9.0-12.0) sec INR (<1.2) APTT (22.0-30.0) sec Fibrinogen (200-500) mg/dL ABG pH (7.35-7.45) ABG pCO2 (35-45) mmHg ABG pO2 171 H (83-108) mmHg ABG Total CO2 (19-24) mmol/L ABG O2 Saturation 100.0 H (94-97) % ABG Hematocrit (34.0-46.0) % Chloride 108 H (98-107) mmol/L Glucose 106 H (74-99) mg/dL POC Glucose (mg/dL) 154 H (75-99) mg/dL Calcium 7.7 L (8.4-10.2) mg/dL Ionized Calcium Bonny (4.5-5.3) mg/dL Phosphorus 2.3 L (2.5-4.5) mg/dL Magnesium 1.5 L (1.6-2.3) mg/dL ALT (21-72) U/L Alkaline Phosphatase (38-126) U/L Total Protein (6.3-8.2) g/dL Albumin (3.5-5.0) g/dL Crossmatch 03/15/17 03/15/17 03/15/17 Range/Units 21:08 22:01 22:03 RBC 2.43 L (4.30-5.90) m/uL Hgb 7.5 L (13.0-17.5) gm/dL Hct 21.2 L (39.0-53.0) % Plt Count 123 L (150-450) k/uL Lymphocytes # 0.2 L (1.0-4.8) k/uL PT (9.0-12.0) sec INR (<1.2) APTT (22.0-30.0) sec Fibrinogen (200-500) mg/dL ABG pH (7.35-7.45) ABG pCO2 (35-45) mmHg ABG pO2 (83-108) mmHg ABG Total CO2 (19-24) mmol/L ABG O2 Saturation (94-97) % ABG Hematocrit (34.0-46.0) % Chloride (98-107) mmol/L Glucose (74-99) mg/dL POC Glucose (mg/dL) 73 L 128 H (75-99) mg/dL Calcium (8.4-10.2) mg/dL Ionized Calcium Bonny (4.5-5.3) mg/dL Phosphorus (2.5-4.5) mg/dL Magnesium (1.6-2.3) mg/dL ALT (21-72) U/L Alkaline Phosphatase (38-126) U/L Total Protein (6.3-8.2) g/dL Albumin (3.5-5.0) g/dL Crossmatch 03/15/17 03/15/17 03/16/17 Range/Units 23:01 23:54 03:07 RBC (4.30-5.90) m/uL Hgb (13.0-17.5) gm/dL Hct (39.0-53.0) % Plt Count (150-450) k/uL Lymphocytes # (1.0-4.8) k/uL PT (9.0-12.0) sec INR (<1.2) APTT (22.0-30.0) sec Fibrinogen (200-500) mg/dL ABG pH (7.35-7.45) ABG pCO2 (35-45) mmHg ABG pO2 (83-108) mmHg ABG Total CO2 (19-24) mmol/L ABG O2 Saturation (94-97) % ABG Hematocrit (34.0-46.0) % Chloride (98-107) mmol/L Glucose (74-99) mg/dL POC Glucose (mg/dL) 116 H 119 H 100 H (75-99) mg/dL Calcium (8.4-10.2) mg/dL Ionized Calcium Bonny (4.5-5.3) mg/dL Phosphorus (2.5-4.5) mg/dL Magnesium (1.6-2.3) mg/dL ALT (21-72) U/L Alkaline Phosphatase (38-126) U/L Total Protein (6.3-8.2) g/dL Albumin (3.5-5.0) g/dL Crossmatch 03/16/17 03/16/17 03/16/17 Range/Units 04:02 04:05 04:05 RBC 2.47 L (4.30-5.90) m/uL Hgb 7.7 L (13.0-17.5) gm/dL Hct 22.0 L (39.0-53.0) % Plt Count 134 L (150-450) k/uL Lymphocytes # 0.4 L (1.0-4.8) k/uL PT (9.0-12.0) sec INR (<1.2) APTT (22.0-30.0) sec Fibrinogen (200-500) mg/dL ABG pH (7.35-7.45) ABG pCO2 (35-45) mmHg ABG pO2 (83-108) mmHg ABG Total CO2 (19-24) mmol/L ABG O2 Saturation (94-97) % ABG Hematocrit (34.0-46.0) % Chloride (98-107) mmol/L Glucose 124 H (74-99) mg/dL POC Glucose (mg/dL) 140 H (75-99) mg/dL Calcium 7.8 L (8.4-10.2) mg/dL Ionized Calcium Bonny 4.4 L (4.5-5.3) mg/dL Phosphorus (2.5-4.5) mg/dL Magnesium (1.6-2.3) mg/dL ALT (21-72) U/L Alkaline Phosphatase 35 L (38-126) U/L Total Protein 5.1 L (6.3-8.2) g/dL Albumin (3.5-5.0) g/dL Crossmatch 03/16/17 03/16/17 03/16/17 Range/Units 05:09 06:12 07:04 RBC (4.30-5.90) m/uL Hgb (13.0-17.5) gm/dL Hct (39.0-53.0) % Plt Count (150-450) k/uL Lymphocytes # (1.0-4.8) k/uL PT (9.0-12.0) sec INR (<1.2) APTT (22.0-30.0) sec Fibrinogen (200-500) mg/dL ABG pH (7.35-7.45) ABG pCO2 (35-45) mmHg ABG pO2 (83-108) mmHg ABG Total CO2 (19-24) mmol/L ABG O2 Saturation (94-97) % ABG Hematocrit (34.0-46.0) % Chloride (98-107) mmol/L Glucose (74-99) mg/dL POC Glucose (mg/dL) 130 H 107 H 117 H (75-99) mg/dL Calcium (8.4-10.2) mg/dL Ionized Calcium Bonny (4.5-5.3) mg/dL Phosphorus (2.5-4.5) mg/dL Magnesium (1.6-2.3) mg/dL ALT (21-72) U/L Alkaline Phosphatase (38-126) U/L Total Protein (6.3-8.2) g/dL Albumin (3.5-5.0) g/dL Crossmatch 03/16/17 03/16/17 03/16/17 Range/Units 07:58 08:53 10:00 RBC (4.30-5.90) m/uL Hgb (13.0-17.5) gm/dL Hct (39.0-53.0) % Plt Count (150-450) k/uL Lymphocytes # (1.0-4.8) k/uL PT (9.0-12.0) sec INR (<1.2) APTT (22.0-30.0) sec Fibrinogen (200-500) mg/dL ABG pH (7.35-7.45) ABG pCO2 (35-45) mmHg ABG pO2 (83-108) mmHg ABG Total CO2 (19-24) mmol/L ABG O2 Saturation (94-97) % ABG Hematocrit (34.0-46.0) % Chloride (98-107) mmol/L Glucose (74-99) mg/dL POC Glucose (mg/dL) 135 H 146 H 121 H (75-99) mg/dL Calcium (8.4-10.2) mg/dL Ionized Calcium Bonny (4.5-5.3) mg/dL Phosphorus (2.5-4.5) mg/dL Magnesium (1.6-2.3) mg/dL ALT (21-72) U/L Alkaline Phosphatase (38-126) U/L Total Protein (6.3-8.2) g/dL Albumin (3.5-5.0) g/dL Crossmatch 03/16/17 03/16/17 Range/Units 10:52 12:02 RBC (4.30-5.90) m/uL Hgb (13.0-17.5) gm/dL Hct (39.0-53.0) % Plt Count (150-450) k/uL Lymphocytes # (1.0-4.8) k/uL PT (9.0-12.0) sec INR (<1.2) APTT (22.0-30.0) sec Fibrinogen (200-500) mg/dL ABG pH (7.35-7.45) ABG pCO2 (35-45) mmHg ABG pO2 (83-108) mmHg ABG Total CO2 (19-24) mmol/L ABG O2 Saturation (94-97) % ABG Hematocrit (34.0-46.0) % Chloride (98-107) mmol/L Glucose (74-99) mg/dL POC Glucose (mg/dL) 106 H 100 H (75-99) mg/dL Calcium (8.4-10.2) mg/dL Ionized Calcium Bonny (4.5-5.3) mg/dL Phosphorus (2.5-4.5) mg/dL Magnesium (1.6-2.3) mg/dL ALT (21-72) U/L Alkaline Phosphatase (38-126) U/L Total Protein (6.3-8.2) g/dL Albumin (3.5-5.0) g/dL Crossmatch Assessment and Plan Plan: Assessment 1 multivessel coronary artery disease and the patient is status post four- vessel coronary artery bypass surgery including CASTELLANOS to LAD. Patient is postop day #1. 2 postoperative anemia due to intraoperative blood loss post transfusion with 2 units of packed RBC. This anemia was expected postoperatively. Hemoglobin is stable for now. 3 post thoracotomy, extubated without any major difficulties 4 chronic renal failure, creatinine is normal at this point and the patient is producing adequate amount of urine output 5 carotid artery disease, as discussed earlier 6 hypertension 8 hyperlipidemia 9. Hearing 10 throat cancer back in 2005, post chemoradiation therapy Plan Continue monitoring the output from the chest tube. Monitor hemoglobin. Pulmonary status is stable. Chest x-ray was reviewed. Hemodynamically stable. Encouraged use of incentive spirometer. [place] for pain control. We'll continue to follow. Keep the patient ICU for another 24 hours.
[2017-03-16 13:04] LABS: Glucose,Whole Blood 120 mg/dL (75-99)
--- NOTE | 2017-03-16 13:34 | CONS ---
Tenzin is a 71-year-old gentleman who is admitted to the hospital for bypass surgery. He is postop day #1 and doing well and is free of symptoms. Patient had CASTELLANOS to LAD, vein graft to diag, vein graft to OM and vein graft to RCA. He also has bilateral carotid stenosis, history of hypertension and dyslipidemia. This morning he is stable hemodynamically. Blood pressures are normal. He remains in sinus rhythm of vent. Past medical history is significant for multivessel coronary artery disease, hypertension and dyslipidemia. Current medications include Norvasc 5 q. daily, midodrine 5 t.i.d., metoprolol 25 b.i.d., Cozaar 50 q. daily, Synthroid, Flonase, Lipitor and aspirin. ALLERGIES: There are no known drug allergies. Family history is negative for premature coronary artery disease. Social history is negative for smoking, EtOH abuse or drug abuse. REVIEW OF SYSTEMS: HEENT: Unremarkable. CARDIAC: As described above. RESPIRATORY: As described above. GI: Negative. GENITOURINARY: Negative. ALLERGY ( ): Negative. MUSCULOSKELETAL: Significant for arthritis. PSYCHOSOCIAL: Negative. ENDOCRINE: Negative. HEMATOLOGIC; Negative. DERM: Negative. CONSTITUTIONAL: Negative. ONCOLOGICAL: Negative. The rest of the system review is not relevant. On exam, comfortable at rest. Vital signs are stable. There is no jugular venous distention. Chest x-ray reveals diminished air entry at the bases. Heart exam reveals first and second heart sounds. No gallop. No murmur. Abdomen is soft, nontender. Examination of the extremities did not reveal edema. Peripheral pulses are felt. ASSESSMENT: Multivessel coronary artery disease, status post CABG, postoperative day #1. Patient is doing well. Will continue current supportive care including aspirin, Lipitor, Plavix. Continue the beta blockers, Lopressor 12.5 b.i.d. MTDD
[2017-03-16] MEDS ORDERED: HYDROcodone/APAP 5-325MG 1 EACH TAB PO PRN (14:20)
[2017-03-16] MEDS ORDERED: MAGNESIUM HYDROXIDE 2,400 MG/10 ML CUP PO PRN (14:21)
[2017-03-16] MEDS ORDERED: BISACODYL 10 MG SUPP RECTAL PRN (14:21)
[2017-03-16] MEDS ORDERED: IPRATROPIUM-ALBUTEROL 3 ML NEB INHALATION PRN (14:21)
[2017-03-16 14:34] LABS: Glucose,Whole Blood 106 mg/dL (75-99)
[2017-03-16] MEDS: CLEVIDIPINE BUTYRATE 25 MG in EMPTY BAG 1 BAG IV SCH (14:38)
--- NOTE | 2017-03-16 15:42 | CDI ---
In responding to this query, please exercise your independent professional judgment. The [facility] Coding Staff and Clinical Documentation Specialists appreciate your assistance in clarifying documentation, maintaining compliance with coding guidelines, accurately documenting patients condition and capturing severity of illness. The fact that a question is asked does not imply that any particular answer is desired or expected. Communication forms are a method of clarifying documentation and are not made part of the Legal Health Record. Thank you in advance for your clarification. Last Revision, October 2015 Emelina Ribera [address] [place] [address] Documentation Clarification Form Date: 03/16/2017 3:30:00 PM From: Patience Senior CCS, CCDS Admit Date: 03/15/2017 5:49:00 AM Patient Name: Tenzin Burgos Visit Number: [id number] Discharge Date: Dr. Chikis Castaneda: 71 yo female admitted for elective Quadruple CABG. Postoperatively the patient's blood pressure was 80s/50s - 90s/50s. Per the pulmonary/critical care consultation, "hypertension" is documented. Please clarify the diagnosis of "hypertension" in relation to the patient's blood pressure readings. In your professional opinion, can you please specify the etiology of the hypotension if known? An expected outcome of the patient's surgery. An unexpected outcome of the patient's surgery. Other Undetermined Type: o Iatrogenic Hypotension o Idiopathic Hypotension o Drug Induced Hypotension o Postoperative Hypotension o Other Condition, please specify o Unable to determine Please document in your progress notes and discharge summary in order to capture severity of illness and risk of mortality. Include clinical findings that support your diagnosis. FYI: Press F11 to launch patient chart Thank You MTDD
[2017-03-16 17:07] LABS: Glucose,Whole Blood 116 mg/dL (75-99)
[2017-03-16] MEDS: HEPARIN SODIUM,PORCINE 5,000 UNIT/ML 1 ML VIAL SQ SCH (17:23)
[2017-03-16] MEDS: LACTATED RINGERS 1,000 ML IV SCH (17:24)
[2017-03-16] MEDS: INSULIN LISPRO (humaLOG) 300 UNIT/3 ML VIAL SQ SCH ×2 (17:26→21:28)
[2017-03-16] MEDS ORDERED: FUROSEMIDE 10 MG/ML 4 ML VIAL IV STA (19:24)
[2017-03-16 20:11] LABS: CHCM 34.2; HDW 3.11; MCH 31.2 pg (25.0-35.0); MCHC 35.4 g/dL (31.0-37.0); MCV 88.2 fL (80.0-100.0); Mean Platelet Volume 7.5; RBC 1.71 m/uL (4.30-5.90); RDW 15.4 % (11.5-15.5); WBC 6.1 k/uL (3.8-10.6)
[2017-03-16] MEDS ORDERED: NOREPINEPHRIN 4 MG-0.9% NS PMX 4 MG/250 ML ML IV ONE (20:14)
[2017-03-16 20:16] LABS: HGB 5.4 gm/dL (13.0-17.5)
[2017-03-16 20:17] LABS: HCT 15.1 % (39.0-53.0)
[2017-03-16 20:32] LABS: CH 31.1; CHCM 34.9; MCH 30.6 pg (25.0-35.0); MCHC 34.2 g/dL (31.0-37.0); MCV 89.5 fL (80.0-100.0); Mean Platelet Volume 9.1; RDW 15.4 % (11.5-15.5); WBC 7.7 k/uL (3.8-10.6)
[2017-03-16 20:33] LABS: HCT 19.7 % (39.0-53.0)
[2017-03-16 20:34] LABS: HGB 6.7 gm/dL (13.0-17.5)
[2017-03-16] MEDS: ALBUMIN HUMAN 5% 250 ML in EMPTY BAG 1 BAG IVPB PRN (20:40)
--- NOTE | 2017-03-16 21:08 | XR ---
EXAMINATION TYPE: XR chest 1V portable DATE OF EXAM: 03/16/2017 COMPARISON: 03/16/2017 HISTORY: Postop cardiac surgery TECHNIQUE: Single frontal view of the chest is obtained. FINDINGS: There is a left chest tube. There are sternal wires. There is no heart failure. There is n o sign of a pneumothorax. Trachea is midline. IMPRESSION: There is improved aeration of the lung bases compared to exam this morning. No pneumotho rax. There is been removal of the right central venous catheter. No heart failure.
[2017-03-16 21:29] LABS: Glucose,Whole Blood 139 mg/dL (75-99)
[2017-03-16] MEDS: SENNOSIDES-DOCUSATE SODIUM 1 EACH TAB PO SCH (21:30)
[2017-03-16] MEDS: HYDROcodone/APAP 5-325MG 1 EACH TAB PO PRN (23:13)
--- NOTE | 2017-03-16 23:29 | P.CONS ---
History of Present Illness - Reason for Consult Consult date: 03/16/17 Medical management of hypertension and other medical problems - Chief Complaint chest pain - History of Present Illness A 71-year-old male with PMH of Cancer, Chest Pain / Angina, Hearing Disorder / Deafness, Hyperlipidemia, Hypertension, Renal Disease was admitted patient was admitted to hospital chest discomfort typical of angina. The patient underwent cardiac catheterization and demonstrated 40% proximal RCA lesion 40-50% mid RCA lesion, 40% narrowing in the left main, 70% disease in the proximal LAD and 70% diagonal branch, 80% diagonal branch, 90% first of diffuse marginal branch and 5060% in the circumflex. Pt. underwent CABG on 03/15/17. Pt. was successfully extubated and is is on nasal canula now. Pt. denied any worsening SOB or CP. no Fever/chills. c/w chest soreness. no overnigth issues. hb is stable. Review of Systems Constitutional: Patient denies any fever or chills . No generalized weakness or weight loss. Abdomen: Patient patient does have nausea or vomiting. No diarrhea and abdominal pain. Cardiovascular: Patient denies any worsening chest pain or short of breath no palpitations. Respiratory: patient denied any cough is from production. Neurologic: Patient denied any numbness . Patient does have dizziness and lightheadedness. Musculoskeletal: Patient denies any complaints of joint swelling or deformity. Skin: Patient does have left wrist skin wound. Psychiatric: Negative Endocrine: No heat or cold intolerance. No recent weight gain. Genitourinary: No dysuria or hematuria. All other 14 point ROS negative except the above Past Medical History Past Medical History: Cancer, Chest Pain / Angina, Hearing Disorder / Deafness, Hyperlipidemia, Hypertension, Renal Disease Additional Past Medical History / Comment(s): On a artery disease details discussed above, carotid artery disease details discussed above, throat cancer diagnosed back in 2006 post chemoradiation therapy, CVA, history of without any major deficits hypertension, hypothyroidism and morbid deafness, normal left ventricular function with an ejection fraction of 60-65% without evidence of any significant pulmonary hypertension or pericardial effusion no valvular abnormalities based on echocardiogram from 2017. History of Any Multi-Drug Resistant Organisms: None Reported Past Surgical History: Heart Catheterization, Hernia Repair Additional Past Surgical History / Comment(s): bilateral rotator cuff repair, three sinus surgical procedures-polypectomy. radical neck dissection post tonsillar cancer Past Anesthesia/Blood Transfusion Reactions: No Reported Reaction Smoking Status: Former smoker - Past Family History Father Family Medical History: Cancer Mother Family Medical History: Congestive Heart Failure (CHF) Medications and Allergies Home Medications Medication Instructions Recorded Confirmed Type Fluticasone Nasal [place] [Flonase 1 spray EA NOSTRIL DAILY 02/12/17 03/15/17 History Nasal [place]] Levothyroxine Sodium [Synthroid] 112 mcg PO DAILY 02/12/17 03/15/17 History Losartan [Cozaar] 50 mg PO DAILY 02/12/17 03/15/17 History Midodrine HCl [ProAmatine] 5 mg PO TID 02/12/17 03/15/17 History amLODIPine BESYLATE [Norvasc] 5 mg PO DAILY PRN 02/12/17 03/15/17 History Atorvastatin [Lipitor] 20 mg PO BID 03/13/17 03/15/17 History Butalb/Acetaminophen/Caffeine 1 - 2 tab PO Q4H PRN 03/13/17 03/15/17 History [Fioricet 50-325-40] Metoprolol Tartrate 25 mg PO BID 03/13/17 03/15/17 History Aspirin 325 mg PO BID 03/15/17 03/15/17 History Allergies Allergy/AdvReac Type Severity Reaction Status Date / Time No Known Allergies Allergy Verified 03/15/17 06:13 Physical Exam Vitals: Vital Signs Temp Pulse Pulse Resp BP Pulse Ox 03/16/17 10:44 97 03/16/17 08:30 85 20 95/50 100 03/16/17 08:00 88 18 95/50 100 03/16/17 07:30 83 18 95/50 100 03/16/17 07:00 84 14 104/65 100 03/16/17 06:30 84 14 104/65 96 03/16/17 06:00 90 14 126/56 100 03/16/17 05:30 87 100 03/16/17 05:00 87 14 100 03/16/17 04:30 89 14 98 03/16/17 04:00 99.5 F 91 14 100 03/16/17 03:30 86 14 100 03/16/17 03:24 14 03/16/17 03:00 89 14 100 03/16/17 02:30 85 14 100 03/16/17 02:00 99.5 F 88 12 100 03/16/17 01:30 94 98 03/16/17 01:00 93 16 100 03/16/17 00:30 88 16 119/68 100 03/16/17 00:00 99.5 F 92 16 100 03/15/17 23:43 63 14 03/15/17 23:30 93 16 100 03/15/17 23:06 93 16 100 03/15/17 23:00 99.3 F 93 14 100 03/15/17 22:30 99.1 F 91 14 100 03/15/17 22:00 92 96 03/15/17 21:30 99.0 F 92 14 100 03/15/17 21:00 98.6 F 86 100 03/15/17 20:59 97.9 F 89 14 130/53 100 03/15/17 20:50 98.6 F 86 100 03/15/17 20:40 98.6 F 87 100 03/15/17 20:30 98.6 F 90 100 03/15/17 20:00 97.9 F 89 63 14 100 03/15/17 19:58 92.3 F L 87 16 93/56 92 L 03/15/17 19:48 92.3 F L 87 16 93/56 92 L 03/15/17 19:37 87 03/15/17 19:30 90 84 L 03/15/17 19:22 82 03/15/17 19:00 85 92 L 03/15/17 18:00 92 99 03/15/17 17:40 90 93/56 98 03/15/17 17:30 88 93/56 98 03/15/17 17:20 86 93/56 98 03/15/17 17:10 92 93/56 93 L 03/15/17 17:00 96 16 93/56 85 L 03/15/17 16:50 88 93/56 89 L 03/15/17 16:40 85 93/56 94 L 03/15/17 16:30 82 93/56 94 L 03/15/17 16:20 89 93/56 91 L 03/15/17 16:10 80 93/56 93 L 03/15/17 16:05 92.3 F L 77 12 117/55 98 03/15/17 16:04 83 03/15/17 16:00 77 16 93/56 98 03/15/17 15:50 78 82/55 99 03/15/17 15:42 84 03/15/17 15:40 85 82/55 100 03/15/17 15:30 80 82/55 92 L 03/15/17 15:20 77 03/15/17 15:10 100 03/15/17 15:00 78 14 03/15/17 14:54 81 03/15/17 14:45 12 03/15/17 14:25 92.7 F L 81 12 119/57 98 Intake and Output 03/15/17 03/16/17 03/16/17 22:59 06:59 14:59 Intake Total 2279.175 968.633 468 Output Total 2203 1270 198 Balance 76.175 -301.367 270 Intake: IV 1129 832 468 ACETAMINOPHEN IV (For NPO 0 200 ) 1,000 mg In Empty Bag 1 bag @ 400 mls/hr IVPB Q6HR [facility] Rx#:[id number] CO/CI 20 60 Calcium Gluconate 2,000 100 mg In Sodium Chloride 0.9 % 100 ml @ 100 mls/hr IVPB ONCE ONE Rx#: [id number] Calcium Gluconate 2,000 100 mg In Sodium Chloride 0.9 % 100 ml @ 100 mls/hr IVPB ONCE PRN Rx#: [id number] Lactated Ringers 1,000 ml 350 300 150 @ 20 mls/hr IV .Q24H [facility] Rx#:[id number] Magnesium Sulfate-D5w Pmx 200 100 100 1 gm In Dextrose/Water 1 100ml.bag @ 100 mls/hr IVPB Q1H [facility] Rx#: [id number] Potassium Chloride 20 meq 100 In Water For Injection 1 100ml.bag @ 50 mls/hr IVPB ONCE ONE Rx#: [id number] Pressure Bag 9 72 18 Sodium Phosphate 10 mmol 250 In Sodium Chloride 0.9% 250 ml @ 125 mls/hr IVPB ONCE ONE Rx#:[id number] ceFAZolin 2 gm In Sodium 100 100 100 Chloride 0.9% 100 ml @ 100 mls/hr IVPB Q8HR [facility] Rx#:[id number] Intake, IV Titration 8.175 16.633 0 Amount Clevidipine Butyrate 25 6 4 mg In Empty Bag 1 bag @ 1 MG/HR 2 mls/hr IV .Q24H [facility] Rx#:[id number] Insulin Regular 100 unit 2.175 12.633 0 In Sodium Chloride 0.9% 100 ml @ Per Protocol IV .Q0M [facility] Rx#:[id number] Oral 120 Blood Product 1142 Cryoprecipitate Unit 10 [id number] Cryoprecipitate Unit 10 [id number] Cryoprecipitate Unit 10 [id number] Cryoprecipitate Unit 10 [id number] Cryoprecipitate Unit 10 [id number] Cryoprecipitate Unit 10 [id number] Cryoprecipitate Unit 10 [id number] Cryoprecipitate Unit 10 [id number] Cryoprecipitate Unit 10 [id number] Cryoprecipitate Unit 10 [id number] Ffp 24 Cp2d Unit 178 [id number] Ffp 24 Cpda Unit 217 [id number] Platelet Pheresis Acda1 293 Unit [id number] Platelet Pheresis Acda2 44 Unit [id number] Rc As-1 Unit 310 [id number] Output: Chest Tube Drainage 990 620 80 Left Pleural 520 330 50 Mediastinal x 2 470 290 30 Gastric Drainage 0 Drainage 0 40 Left Calf 0 10 Right Medial Thigh 0 30 Urine 1213 610 118 Other: Voiding Method Indwelling Catheter Indwelling Catheter # Bowel Movements 0 0 Weight 84.2 kg 84.2 kg Patient Weight 03/17/17 06:59 Weight 84.2 kg ABP, PAP, CO, CI - Last 8 Hours Arterial Blood Pressure 137/61 Arterial Blood Pressure 102/49 Arterial Blood Pressure 110/50 Arterial Blood Pressure 105/46 Arterial Blood Pressure 123/54 Pulmonary Artery Pressure 20/13 Pulmonary Artery Pressure 27/17 Pulmonary Artery Pressure 19/12 Pulmonary Artery Pressure 15/8 Pulmonary Artery Pressure 17/9 Cardiac Output 6 Cardiac Output 6 Cardiac Output 6 Cardiac Output 6 Cardiac Output 6 HEENT: atraumatic. no scleral icterus or corneal arcus. Mucous membranes were moist. Neck is supple and the patient has a right IJ Cordis in place. Lungs sounds are diminished bilaterally. no wheezing Sternum stable clean and intact. The patient has 2 mediastinal chest tubes and 1 pleural chest tube on the left. Heart sounds are regular and there is a pericardial rub S1-S2. heard. No significant murmurs appreciated. Abdominal exam revealed normal bowel sounds. The abdomen was soft, non-tender, and without masses, organomegaly, or appreciable enlargement of the abdominal aorta. Extremities: palpable radial, femoral and pedal pulses. There was no cyanosis, clubbing or edema. Results CBC & Chem 7: 03/16/17 20:20 03/16/17 04:05 Labs: Abnormal Lab Results - Last 24 Hours (Table) 03/13/17 03/15/17 03/15/17 Range/Units 09:07 09:00 10:18 RBC (4.30-5.90) m/uL Hgb (13.0-17.5) gm/dL Hct (39.0-53.0) % Plt Count (150-450) k/uL Lymphocytes # (1.0-4.8) k/uL PT (9.0-12.0) sec INR (<1.2) APTT (22.0-30.0) sec Fibrinogen (200-500) mg/dL ABG pH 7.31 L (7.35-7.45) ABG pCO2 33 L 48 H (35-45) mmHg ABG pO2 386 H 371 H (83-108) mmHg ABG Total CO2 25 H (19-24) mmol/L ABG O2 Saturation 100.0 H 99.9 H (94-97) % ABG Hematocrit 32 L (34.0-46.0) % Chloride (98-107) mmol/L Glucose (74-99) mg/dL POC Glucose (mg/dL) (75-99) mg/dL Calcium (8.4-10.2) mg/dL Ionized Calcium Bonny (4.5-5.3) mg/dL Phosphorus (2.5-4.5) mg/dL Magnesium (1.6-2.3) mg/dL ALT (21-72) U/L Alkaline Phosphatase (38-126) U/L Total Protein (6.3-8.2) g/dL Albumin (3.5-5.0) g/dL Crossmatch See Detail 03/15/17 03/15/17 03/15/17 Range/Units 10:44 11:10 12:05 RBC (4.30-5.90) m/uL Hgb (13.0-17.5) gm/dL Hct (39.0-53.0) % Plt Count (150-450) k/uL Lymphocytes # (1.0-4.8) k/uL PT (9.0-12.0) sec INR (<1.2) APTT (22.0-30.0) sec Fibrinogen (200-500) mg/dL ABG pH 7.30 L (7.35-7.45) ABG pCO2 (35-45) mmHg ABG pO2 379 H 412 H 398 H (83-108) mmHg ABG Total CO2 (19-24) mmol/L ABG O2 Saturation 100.0 H 100.0 H 99.9 H (94-97) % ABG Hematocrit 29 L 27 L 26 L (34.0-46.0) % Chloride (98-107) mmol/L Glucose (74-99) mg/dL POC Glucose (mg/dL) (75-99) mg/dL Calcium (8.4-10.2) mg/dL Ionized Calcium Bonny (4.5-5.3) mg/dL Phosphorus (2.5-4.5) mg/dL Magnesium (1.6-2.3) mg/dL ALT (21-72) U/L Alkaline Phosphatase (38-126) U/L Total Protein (6.3-8.2) g/dL Albumin (3.5-5.0) g/dL Crossmatch 03/15/17 03/15/17 03/15/17 Range/Units 12:30 13:13 13:40 RBC (4.30-5.90) m/uL Hgb (13.0-17.5) gm/dL Hct (39.0-53.0) % Plt Count (150-450) k/uL Lymphocytes # (1.0-4.8) k/uL PT (9.0-12.0) sec INR (<1.2) APTT (22.0-30.0) sec Fibrinogen (200-500) mg/dL ABG pH 7.29 L (7.35-7.45) ABG pCO2 49 H (35-45) mmHg ABG pO2 375 H 51 L 340 H (83-108) mmHg ABG Total CO2 25 H (19-24) mmol/L ABG O2 Saturation 100.0 H 81.3 L 99.9 H (94-97) % ABG Hematocrit 23 L 17 L* 19 L* (34.0-46.0) % Chloride (98-107) mmol/L Glucose (74-99) mg/dL POC Glucose (mg/dL) (75-99) mg/dL Calcium (8.4-10.2) mg/dL Ionized Calcium Bonny (4.5-5.3) mg/dL Phosphorus (2.5-4.5) mg/dL Magnesium (1.6-2.3) mg/dL ALT (21-72) U/L Alkaline Phosphatase (38-126) U/L Total Protein (6.3-8.2) g/dL Albumin (3.5-5.0) g/dL Crossmatch 03/15/17 03/15/17 03/15/17 Range/Units 15:00 15:05 15:05 RBC 2.30 L (4.30-5.90) m/uL Hgb 7.0 L* D (13.0-17.5) gm/dL Hct 20.3 L (39.0-53.0) % Plt Count 81 L D (150-450) k/uL Lymphocytes # 0.7 L (1.0-4.8) k/uL PT (9.0-12.0) sec INR (<1.2) APTT (22.0-30.0) sec Fibrinogen 98 L* (200-500) mg/dL ABG pH (7.35-7.45) ABG pCO2 (35-45) mmHg ABG pO2 (83-108) mmHg ABG Total CO2 (19-24) mmol/L ABG O2 Saturation (94-97) % ABG Hematocrit (34.0-46.0) % Chloride 109 H (98-107) mmol/L Glucose 125 H (74-99) mg/dL POC Glucose (mg/dL) (75-99) mg/dL Calcium 6.7 L (8.4-10.2) mg/dL Ionized Calcium Bonny 3.7 L (4.5-5.3) mg/dL Phosphorus (2.5-4.5) mg/dL Magnesium 1.4 L (1.6-2.3) mg/dL ALT 18 L (21-72) U/L Alkaline Phosphatase 24 L (38-126) U/L Total Protein 4.2 L (6.3-8.2) g/dL Albumin 2.8 L (3.5-5.0) g/dL Crossmatch 03/15/17 03/15/17 03/15/17 Range/Units 15:05 15:08 15:28 RBC (4.30-5.90) m/uL Hgb (13.0-17.5) gm/dL Hct (39.0-53.0) % Plt Count (150-450) k/uL Lymphocytes # (1.0-4.8) k/uL PT 16.4 H (9.0-12.0) sec INR 1.7 H (<1.2) APTT 43.3 H (22.0-30.0) sec Fibrinogen (200-500) mg/dL ABG pH (7.35-7.45) ABG pCO2 (35-45) mmHg ABG pO2 >400 H (83-108) mmHg ABG Total CO2 (19-24) mmol/L ABG O2 Saturation 100.0 H (94-97) % ABG Hematocrit (34.0-46.0) % Chloride (98-107) mmol/L Glucose (74-99) mg/dL POC Glucose (mg/dL) 149 H (75-99) mg/dL Calcium (8.4-10.2) mg/dL Ionized Calcium Bonny (4.5-5.3) mg/dL Phosphorus (2.5-4.5) mg/dL Magnesium (1.6-2.3) mg/dL ALT (21-72) U/L Alkaline Phosphatase (38-126) U/L Total Protein (6.3-8.2) g/dL Albumin (3.5-5.0) g/dL Crossmatch 03/15/17 03/15/17 03/15/17 Range/Units 16:02 17:02 18:30 RBC 2.58 L (4.30-5.90) m/uL Hgb 8.2 L (13.0-17.5) gm/dL Hct 23.1 L (39.0-53.0) % Plt Count 106 L (150-450) k/uL Lymphocytes # 0.5 L (1.0-4.8) k/uL PT (9.0-12.0) sec INR (<1.2) APTT (22.0-30.0) sec Fibrinogen (200-500) mg/dL ABG pH (7.35-7.45) ABG pCO2 (35-45) mmHg ABG pO2 (83-108) mmHg ABG Total CO2 (19-24) mmol/L ABG O2 Saturation (94-97) % ABG Hematocrit (34.0-46.0) % Chloride (98-107) mmol/L Glucose (74-99) mg/dL POC Glucose (mg/dL) 156 H 147 H (75-99) mg/dL Calcium (8.4-10.2) mg/dL Ionized Calcium Bonny (4.5-5.3) mg/dL Phosphorus (2.5-4.5) mg/dL Magnesium (1.6-2.3) mg/dL ALT (21-72) U/L Alkaline Phosphatase (38-126) U/L Total Protein (6.3-8.2) g/dL Albumin (3.5-5.0) g/dL Crossmatch 03/15/17 03/15/17 03/15/17 Range/Units 18:30 18:30 18:40 RBC (4.30-5.90) m/uL Hgb (13.0-17.5) gm/dL Hct (39.0-53.0) % Plt Count (150-450) k/uL Lymphocytes # (1.0-4.8) k/uL PT 13.3 H (9.0-12.0) sec INR 1.4 H (<1.2) APTT 33.8 H (22.0-30.0) sec Fibrinogen (200-500) mg/dL ABG pH (7.35-7.45) ABG pCO2 (35-45) mmHg ABG pO2 (83-108) mmHg ABG Total CO2 (19-24) mmol/L ABG O2 Saturation (94-97) % ABG Hematocrit (34.0-46.0) % Chloride 108 H (98-107) mmol/L Glucose 106 H (74-99) mg/dL POC Glucose (mg/dL) 154 H (75-99) mg/dL Calcium 7.7 L (8.4-10.2) mg/dL Ionized Calcium Bonny (4.5-5.3) mg/dL Phosphorus 2.3 L (2.5-4.5) mg/dL Magnesium 1.5 L (1.6-2.3) mg/dL ALT (21-72) U/L Alkaline Phosphatase (38-126) U/L Total Protein (6.3-8.2) g/dL Albumin (3.5-5.0) g/dL Crossmatch 03/15/17 03/15/17 03/15/17 Range/Units 20:49 21:08 22:01 RBC 2.43 L (4.30-5.90) m/uL Hgb 7.5 L (13.0-17.5) gm/dL Hct 21.2 L (39.0-53.0) % Plt Count 123 L (150-450) k/uL Lymphocytes # 0.2 L (1.0-4.8) k/uL PT (9.0-12.0) sec INR (<1.2) APTT (22.0-30.0) sec Fibrinogen (200-500) mg/dL ABG pH (7.35-7.45) ABG pCO2 (35-45) mmHg ABG pO2 171 H (83-108) mmHg ABG Total CO2 (19-24) mmol/L ABG O2 Saturation 100.0 H (94-97) % ABG Hematocrit (34.0-46.0) % Chloride (98-107) mmol/L Glucose (74-99) mg/dL POC Glucose (mg/dL) 73 L (75-99) mg/dL Calcium (8.4-10.2) mg/dL Ionized Calcium Bonny (4.5-5.3) mg/dL Phosphorus (2.5-4.5) mg/dL Magnesium (1.6-2.3) mg/dL ALT (21-72) U/L Alkaline Phosphatase (38-126) U/L Total Protein (6.3-8.2) g/dL Albumin (3.5-5.0) g/dL Crossmatch 03/15/17 03/15/17 03/15/17 Range/Units 22:03 23:01 23:54 RBC (4.30-5.90) m/uL Hgb (13.0-17.5) gm/dL Hct (39.0-53.0) % Plt Count (150-450) k/uL Lymphocytes # (1.0-4.8) k/uL PT (9.0-12.0) sec INR (<1.2) APTT (22.0-30.0) sec Fibrinogen (200-500) mg/dL ABG pH (7.35-7.45) ABG pCO2 (35-45) mmHg ABG pO2 (83-108) mmHg ABG Total CO2 (19-24) mmol/L ABG O2 Saturation (94-97) % ABG Hematocrit (34.0-46.0) % Chloride (98-107) mmol/L Glucose (74-99) mg/dL POC Glucose (mg/dL) 128 H 116 H 119 H (75-99) mg/dL Calcium (8.4-10.2) mg/dL Ionized Calcium Bonny (4.5-5.3) mg/dL Phosphorus (2.5-4.5) mg/dL Magnesium (1.6-2.3) mg/dL ALT (21-72) U/L Alkaline Phosphatase (38-126) U/L Total Protein (6.3-8.2) g/dL Albumin (3.5-5.0) g/dL Crossmatch 03/16/17 03/16/17 03/16/17 Range/Units 03:07 04:02 04:05 RBC 2.47 L (4.30-5.90) m/uL Hgb 7.7 L (13.0-17.5) gm/dL Hct 22.0 L (39.0-53.0) % Plt Count 134 L (150-450) k/uL Lymphocytes # 0.4 L (1.0-4.8) k/uL PT (9.0-12.0) sec INR (<1.2) APTT (22.0-30.0) sec Fibrinogen (200-500) mg/dL ABG pH (7.35-7.45) ABG pCO2 (35-45) mmHg ABG pO2 (83-108) mmHg ABG Total CO2 (19-24) mmol/L ABG O2 Saturation (94-97) % ABG Hematocrit (34.0-46.0) % Chloride (98-107) mmol/L Glucose (74-99) mg/dL POC Glucose (mg/dL) 100 H 140 H (75-99) mg/dL Calcium (8.4-10.2) mg/dL Ionized Calcium Bonny (4.5-5.3) mg/dL Phosphorus (2.5-4.5) mg/dL Magnesium (1.6-2.3) mg/dL ALT (21-72) U/L Alkaline Phosphatase (38-126) U/L Total Protein (6.3-8.2) g/dL Albumin (3.5-5.0) g/dL Crossmatch 03/16/17 03/16/17 03/16/17 Range/Units 04:05 05:09 06:12 RBC (4.30-5.90) m/uL Hgb (13.0-17.5) gm/dL Hct (39.0-53.0) % Plt Count (150-450) k/uL Lymphocytes # (1.0-4.8) k/uL PT (9.0-12.0) sec INR (<1.2) APTT (22.0-30.0) sec Fibrinogen (200-500) mg/dL ABG pH (7.35-7.45) ABG pCO2 (35-45) mmHg ABG pO2 (83-108) mmHg ABG Total CO2 (19-24) mmol/L ABG O2 Saturation (94-97) % ABG Hematocrit (34.0-46.0) % Chloride (98-107) mmol/L Glucose 124 H (74-99) mg/dL POC Glucose (mg/dL) 130 H 107 H (75-99) mg/dL Calcium 7.8 L (8.4-10.2) mg/dL Ionized Calcium Bonny 4.4 L (4.5-5.3) mg/dL Phosphorus (2.5-4.5) mg/dL Magnesium (1.6-2.3) mg/dL ALT (21-72) U/L Alkaline Phosphatase 35 L (38-126) U/L Total Protein 5.1 L (6.3-8.2) g/dL Albumin (3.5-5.0) g/dL Crossmatch 03/16/17 03/16/17 03/16/17 Range/Units 07:04 07:58 08:53 RBC (4.30-5.90) m/uL Hgb (13.0-17.5) gm/dL Hct (39.0-53.0) % Plt Count (150-450) k/uL Lymphocytes # (1.0-4.8) k/uL PT (9.0-12.0) sec INR (<1.2) APTT (22.0-30.0) sec Fibrinogen (200-500) mg/dL ABG pH (7.35-7.45) ABG pCO2 (35-45) mmHg ABG pO2 (83-108) mmHg ABG Total CO2 (19-24) mmol/L ABG O2 Saturation (94-97) % ABG Hematocrit (34.0-46.0) % Chloride (98-107) mmol/L Glucose (74-99) mg/dL POC Glucose (mg/dL) 117 H 135 H 146 H (75-99) mg/dL Calcium (8.4-10.2) mg/dL Ionized Calcium Bonny (4.5-5.3) mg/dL Phosphorus (2.5-4.5) mg/dL Magnesium (1.6-2.3) mg/dL ALT (21-72) U/L Alkaline Phosphatase (38-126) U/L Total Protein (6.3-8.2) g/dL Albumin (3.5-5.0) g/dL Crossmatch 03/16/17 03/16/17 03/16/17 Range/Units 10:00 10:52 12:02 RBC (4.30-5.90) m/uL Hgb (13.0-17.5) gm/dL Hct (39.0-53.0) % Plt Count (150-450) k/uL Lymphocytes # (1.0-4.8) k/uL PT (9.0-12.0) sec INR (<1.2) APTT (22.0-30.0) sec Fibrinogen (200-500) mg/dL ABG pH (7.35-7.45) ABG pCO2 (35-45) mmHg ABG pO2 (83-108) mmHg ABG Total CO2 (19-24) mmol/L ABG O2 Saturation (94-97) % ABG Hematocrit (34.0-46.0) % Chloride (98-107) mmol/L Glucose (74-99) mg/dL POC Glucose (mg/dL) 121 H 106 H 100 H (75-99) mg/dL Calcium (8.4-10.2) mg/dL Ionized Calcium Bonny (4.5-5.3) mg/dL Phosphorus (2.5-4.5) mg/dL Magnesium (1.6-2.3) mg/dL ALT (21-72) U/L Alkaline Phosphatase (38-126) U/L Total Protein (6.3-8.2) g/dL Albumin (3.5-5.0) g/dL Crossmatch 03/16/17 Range/Units 13:02 RBC (4.30-5.90) m/uL Hgb (13.0-17.5) gm/dL Hct (39.0-53.0) % Plt Count (150-450) k/uL Lymphocytes # (1.0-4.8) k/uL PT (9.0-12.0) sec INR (<1.2) APTT (22.0-30.0) sec Fibrinogen (200-500) mg/dL ABG pH (7.35-7.45) ABG pCO2 (35-45) mmHg ABG pO2 (83-108) mmHg ABG Total CO2 (19-24) mmol/L ABG O2 Saturation (94-97) % ABG Hematocrit (34.0-46.0) % Chloride (98-107) mmol/L Glucose (74-99) mg/dL POC Glucose (mg/dL) 120 H (75-99) mg/dL Calcium (8.4-10.2) mg/dL Ionized Calcium [place] (4.5-5.3) mg/dL Phosphorus (2.5-4.5) mg/dL Magnesium (1.6-2.3) mg/dL ALT (21-72) U/L Alkaline Phosphatase (38-126) U/L Total Protein (6.3-8.2) g/dL Albumin (3.5-5.0) g/dL Crossmatch Assessment and Plan Plan: 1 multivessel coronary artery disease. c/w CABG POD #1. 2 Acute blood loss anemia from surgery post transfusion with 2 units of packed RBC. Hemoglobin 5.4 now 3 s/p Intubation.post surgical. extubated now. 4 chronic Kidney disease 5 carotid artery disease 6 hypertension 8 hyperlipidemia 9. Hearing difficulty 10 hx of throat cancer back in 2005, post chemoradiation therapy 11. Hypomagnesemia. replaced. Plan Continue with current management. chest tube management per CT surgery. Monitor hemoglobin. Encouraged use of incentive spirometer. [place] for pain control. We'll continue to follow. Time with Patient: Greater than 30
[2017-03-17] MEDS: METOPROLOL TARTRATE 12.5 MG TAB PO SCH ×3 (00:15→20:47)
[2017-03-17] MEDS: CLEVIDIPINE BUTYRATE 25 MG in EMPTY BAG 1 BAG IV SCH (00:20)
[2017-03-17] MEDS: HEPARIN SODIUM,PORCINE 5,000 UNIT/ML 1 ML VIAL SQ SCH ×4 (01:19→23:10)
[2017-03-17 02:01] LABS: Glucose,Whole Blood 109 mg/dL (75-99)
[2017-03-17 03:50] LABS: Basophils % (A) 0 %; CH 30.1; CHCM 34.5; Eosinophils # (A) 0.2 k/uL (0-0.7); Eosinophils % (A) 2 %; HDW 2.99; HGB 7.9 gm/dL (13.0-17.5); Luc # (Auto) 0.14; Luc % (Auto) 2; Lymphocytes # (A) 0.9 k/uL (1.0-4.8); Lymphocytes % (A) 10 %; MCH 30.1 pg (25.0-35.0); MCHC 34.3 g/dL (31.0-37.0); MCV 87.7 fL (80.0-100.0); Mean Platelet Volume 7.2; Monocytes # (A) 0.3 k/uL (0-1.0); Monocytes % (A) 4 %; Neutrophils # (A) 7.3 k/uL (1.3-7.7); Neutrophils % (A) 83 %; RBC 2.62 m/uL (4.30-5.90); RDW 15.3 % (11.5-15.5); WBC 8.9 k/uL (3.8-10.6); WBC (Perox) 9.11
[2017-03-17 03:55] LABS: INR 1.2 (<1.2); Prothrombin Time 12.1 sec (9.0-12.0)
[2017-03-17 04:05] LABS: Ionized Calcium 4.5 mg/dL (4.5-5.3)
[2017-03-17 04:22] LABS: ALT 26 U/L (21-72); AST 29 U/L (17-59); Alkaline Phosphatase 38 U/L (38-126); Anion Gap 10 mmol/L; Blood Urea Nitrogen 28 mg/dL (9-20); Calcium 8.3 mg/dL (8.4-10.2); Carbon Dioxide 24 mmol/L (22-30); Chloride 101 mmol/L (98-107); Glucose 123 mg/dL (74-99); Magnesium 2.2 mg/dL (1.6-2.3); Non-African American GFR(MDRD) 50 (>60 ml/min/1.73 sqM); Potassium 4.3 mmol/L (3.5-5.1); Sodium 135 mmol/L (137-145); Total Protein 5.4 g/dL (6.3-8.2)
[2017-03-17] MEDS: LEVOTHYROXINE 112 MCG TAB PO SCH (05:12)
[2017-03-17] MEDS: HYDROcodone/APAP 5-325MG 1 EACH TAB PO PRN ×3 (05:12→20:48)
[2017-03-17 07:53] LABS: Glucose,Whole Blood 118 mg/dL (75-99)
[2017-03-17] MEDS: INSULIN LISPRO (humaLOG) 300 UNIT/3 ML VIAL SQ SCH ×3 (07:55→21:49)
--- NOTE | 2017-03-17 08:02 | XR ---
EXAMINATION TYPE: XR chest 1V portable DATE OF EXAM: 03/17/2017 COMPARISON: 03/16/2017 HISTORY: SOB, Follow Up FINDINGS: Left-sided chest tube and mediastinal drains are unchanged in position. No evidence for sizable pneum othorax. No change in bibasilar opacities. Stable appearance of the cardio-mediastinal structures at this time. Pleural effusion unchanged. IMPRESSION: 1. Stable portable chest. Clinical correlation and follow up until resolution is recommended.
[2017-03-17] MEDS: ATORVASTATIN 40 MG TAB PO SCH (08:34)
[2017-03-17] MEDS: ASPIRIN 81 MG CHEW PO SCH (08:34)
[2017-03-17] MEDS: CLOPIDOGREL 75 MG TAB PO SCH (08:34)
[2017-03-17] MEDS: ESOMEPRAZOLE 20 MG in SODIUM CHLORIDE 0.9% 50 ML IVPB SCH (08:35)
[2017-03-17] MEDS: MUPIROCIN 2% OINT 22 GM TUBE NASAL SCH ×2 (08:35→20:46)
--- NOTE | 2017-03-17 09:10 | P.PN ---
Subjective Principal diagnosis: Severe symptomatic multivessel coronary artery disease. Unstable angina. Left main disease. Preserved left ventricular function. Bilateral carotid stenosis. Hypertension. Hyperlipidemia. History of throat cancer with chemo and radiation, status post modified radical neck dissection. History of tobacco dependence. POD #2 elective off-pump non-aortic clamp quadruple coronary artery bypass grafting using the left internal mammary to the left anterior descending artery. Reverse saphenous vein graft connected to the aorta using the PassPort device and connected distally to the right coronary artery before the bifurcation. Saphenous vein graft connected to the aorta using the PassPort device and connected distally to the lateral branching of the first diagonal artery, reverse saphenous vein graft connected to the aorta using the PassPort device and connected distally to the second obtuse marginal artery. Bilateral endoscopic harvesting of the greater saphenous vein except for the segment below the left knee. Epi-aortic scanning and graft flow measurements using the [employer] system. Postoperative acute blood loss anemia, and expected outcome of surgery, treated with blood transfusion. Currently sitting up in a recliner in no acute distress. Denies pain, shortness of breath. Hemoglobin dropped again last night, received 1 unit packed red blood cells. Objective - Vital Signs Vital signs: Vital Signs Temp 98.9 F 03/17/17 04:00 Pulse 87 03/17/17 08:22 Resp 16 03/17/17 07:00 BP 95/53 03/17/17 07:00 Pulse Ox 93 L 03/17/17 08:10 Intake & Output 03/16/17 03/17/17 03/17/17 18:59 06:59 18:59 Intake Total 822 1105 36 Output Total 877 1475 40 Balance -55 -370 -4 Weight 84.2 kg 80.9 kg Intake: IV 792 432 36 Calcium Gluconate 2,000 100 mg In Sodium Chloride 0.9 % 100 ml @ 100 mls/hr IVPB ONCE PRN Rx#: [id number] Lactated Ringers 1,000 ml 420 360 30 @ 20 mls/hr IV .Q24H [facility] Rx#:[id number] Magnesium Sulfate-D5w Pmx 100 1 gm In Dextrose/Water 1 100ml.bag @ 100 mls/hr IVPB Q1H [facility] Rx#: [id number] Pressure Bag 72 72 6 ceFAZolin 2 gm In Sodium 100 Chloride 0.9% 100 ml @ 100 mls/hr IVPB Q8HR [facility] Rx#:[id number] Intake, IV Titration 0 3 Amount Clevidipine Butyrate 25 3 mg In Empty Bag 1 bag @ 1 MG/HR 2 mls/hr IV .Q24H [facility] Rx#:[id number] Insulin Regular 100 unit 0 In Sodium Chloride 0.9% 100 ml @ Per Protocol IV .Q0M [facility] Rx#:[id number] Oral 30 Blood Product 620 Rc Pheresis 2 As3 Unit 310 [id number] Other 50 Rc Pheresis 2 As3 Unit 50 [id number] Output: Chest Tube Drainage 445 445 0 Left Pleural 185 225 0 Mediastinal x 2 260 220 0 Drainage 40 0 Left Calf 30 0 Right Medial Thigh 10 0 Urine 432 990 40 Other: Voiding Method Indwelling Catheter Indwelling Catheter ABP, PAP, CO, CI - Last Documented Arterial Blood Pressure 102/42 Pulmonary Artery Pressure 20/12 Cardiac Output 6 Cardiac Index 3.2 - Constitutional General appearance: Present: cooperative, no acute distress - Respiratory Details: Lungs sounds diminished bilaterally. Respirations even, nonlabored. Currently on 4 L nasal cannula with oxygen saturation 97%. Able to achieve 1000 mL on his incentive spirometry. Left pleural chest tube to -20 cm wall suction, 150 mL serous drainage overnight, 400 mL last 24 hours. Mediastinal chest tube to - 20 cm wall suction, 120 mL serous fluid overnight, 500 mL last 24 hours. No air leaks present. - Cardiovascular Details: S1, S2 present. Regular rate and rhythm, normal sinus rhythm on telemetry. Sternum stable. Heart hugger in place with patient able to demonstrate appropriate use. Right brachial a line present. Right internal jugular Cordis present. No edema present. Teds/SCDs present. - Gastrointestinal Gastrointestinal Comment(s): Abdomen soft, nontender, nondistended. Hypoactive bowel sounds present 4 quadrants. Tolerating diet. - Genitourinary Genitourinary Comment(s): Edwards present draining clear, yellow urine. Urine output 250 mL an hour down to 40 mL an hour this morning. Patient diuresed well after Lasix given yesterday. - Integumentary Integumentary Comment(s): Anterior chest incision well approximated and covered with dry intact dressing. Right and left lower extremity EVH sites well approximated, CHANDA drains present with minimal drainage. - Musculoskeletal Musculoskeletal: Present: gait normal, strength equal bilaterally - Psychiatric Psychiatric: Present: A&O x's 3, appropriate affect, intact judgment & insight - Allied health notes Allied health notes reviewed: nursing - Labs CBC & Chem 7: 03/17/17 03:25 03/17/17 03:25 Labs: Abnormal Lab Results - Last 24 Hours (Table) 03/13/17 03/16/17 03/16/17 Range/Units 09:07 10:00 10:52 RBC (4.30-5.90) m/uL Hgb (13.0-17.5) gm/dL Hct (39.0-53.0) % Plt Count (150-450) k/uL Lymphocytes # (1.0-4.8) k/uL PT (9.0-12.0) sec INR (<1.2) Sodium (137-145) mmol/L BUN (9-20) mg/dL Creatinine (0.66-1.25) mg/dL Glucose (74-99) mg/dL POC Glucose (mg/dL) 121 H 106 H (75-99) mg/dL Calcium (8.4-10.2) mg/dL Total Protein (6.3-8.2) g/dL Crossmatch See Detail 03/16/17 03/16/17 03/16/17 Range/Units 12:02 13:02 14:33 RBC (4.30-5.90) m/uL Hgb (13.0-17.5) gm/dL Hct (39.0-53.0) % Plt Count (150-450) k/uL Lymphocytes # (1.0-4.8) k/uL PT (9.0-12.0) sec INR (<1.2) Sodium (137-145) mmol/L BUN (9-20) mg/dL Creatinine (0.66-1.25) mg/dL Glucose (74-99) mg/dL POC Glucose (mg/dL) 100 H 120 H 106 H (75-99) mg/dL Calcium (8.4-10.2) mg/dL Total Protein (6.3-8.2) g/dL Crossmatch 03/16/17 03/16/17 03/16/17 Range/Units 17:05 19:50 20:20 RBC 1.71 L 2.20 L (4.30-5.90) m/uL Hgb 5.4 L* D 6.7 L* (13.0-17.5) gm/dL Hct 15.1 L* 19.7 L* (39.0-53.0) % Plt Count 102 L 127 L (150-450) k/uL Lymphocytes # (1.0-4.8) k/uL PT (9.0-12.0) sec INR (<1.2) Sodium (137-145) mmol/L BUN (9-20) mg/dL Creatinine (0.66-1.25) mg/dL Glucose (74-99) mg/dL POC Glucose (mg/dL) 116 H (75-99) mg/dL Calcium (8.4-10.2) mg/dL Total Protein (6.3-8.2) g/dL Crossmatch 03/16/17 03/17/17 03/17/17 Range/Units 21:28 02:00 03:25 RBC (4.30-5.90) m/uL Hgb (13.0-17.5) gm/dL Hct (39.0-53.0) % Plt Count (150-450) k/uL Lymphocytes # (1.0-4.8) k/uL PT (9.0-12.0) sec INR (<1.2) Sodium 135 L (137-145) mmol/L BUN 28 H (9-20) mg/dL Creatinine 1.40 H (0.66-1.25) mg/dL Glucose 123 H (74-99) mg/dL POC Glucose (mg/dL) 139 H 109 H (75-99) mg/dL Calcium 8.3 L (8.4-10.2) mg/dL Total Protein 5.4 L (6.3-8.2) g/dL Crossmatch 03/17/17 03/17/17 03/17/17 Range/Units 03:25 03:25 07:51 RBC 2.62 L (4.30-5.90) m/uL Hgb 7.9 L (13.0-17.5) gm/dL Hct 23.0 L (39.0-53.0) % Plt Count 131 L (150-450) k/uL Lymphocytes # 0.9 L (1.0-4.8) k/uL PT 12.1 H (9.0-12.0) sec INR 1.2 H (<1.2) Sodium (137-145) mmol/L BUN (9-20) mg/dL Creatinine (0.66-1.25) mg/dL Glucose (74-99) mg/dL POC Glucose (mg/dL) 118 H (75-99) mg/dL Calcium (8.4-10.2) mg/dL Total Protein (6.3-8.2) g/dL Crossmatch - Imaging and Cardiology Chest x-ray: report reviewed, image reviewed Assessment and Plan (1) Carotid artery disease Status: Acute (2) Coronary artery disease Status: Acute (3) History of cancer tonsil Status: Acute (4) History of syncope Status: Acute (5) Hyperlipidemia Status: Acute (6) Hypertension Status: Acute (7) Tobacco dependence in remission Status: Acute (8) Acute blood loss anemia Status: Acute Plan: 1. Continue low-dose aspirin, Plavix, Lipitor, beta lizz. Will maximize beta lizz therapy as tolerated. 2. Will discontinue arterial line, Cordis, Edwards catheter. 3. Encourage incentive spirometry use. Wean O2 as tolerated. 4. Increase activity, out of bed to chair. Physical therapy to follow. 5. Will monitor chest tube output, daily labs and x-rays. 6. GI/DVT prophylaxis. 7. Diabetic management per primary care services. 8. More recommendations as patient progresses. Time with Patient: Greater than 30
[2017-03-17] MEDS: PANTOPRAZOLE 40 MG TABLET PO SCH (09:15)
--- NOTE | 2017-03-17 12:30 | P.PN ---
Subjective A 71-year-old male patient who is post coronary artery bypass surgery and I was asked to be involved in the critical care management and vent management. This patient was having increased chest discomfort typical of angina. The patient underwent cardiac catheterization and demonstrated 40% proximal RCA lesion 40-50 % mid RCA lesion, 40% narrowing in the left main, 70% disease in the proximal LAD and 70% diagonal branch, 80% diagonal branch, 90% first of diffuse marginal branch and 5060% in the circumflex. Our study was done and the patient showed to have severe disease involving the right internal carotid artery disease and intermediate disease involving the left common carotid and left internal carotid artery. He is known to have hypertension. Hyperlipidemia. The patient underwent off-pump coronary artery bypass surgery with CASTELLANOS to LAD, saphenous vein graft to diagonal, obtuse marginal and RCA. Currently intubated on a mechanical ventilator and sedated with Diprivan. His assist-control mode of ventilation at the rate of 12, tidal volume 500, FiO2 of 40% and a PEEP of 5. The patient immediate postoperative blood This showed a pH of 7.35 with a pCO2 of 42 and pO2 of 513 and based on that the FiO2 was dropped from 100% on to 40%. His saturation remains around 97%. Chest x-ray shows adequate expansion of both lungs without evidence of any pneumothorax. ET tube is in a good location. The patient has 2 mediastinal chest tubes and 1 pleural chest tube all of them were actively draining since his surgery and his drainage has slowed down over the past few hours. The patient required to be given a total of 2 units of packed RBC intraoperatively, 4 units of fresh frozen plasma and 5 platelet concentrates. The hemoglobin at this point is on 7.0 and the patient is receiving another unit of packed RBC. PA pressures around 30/12 and the cardiac index is 2.7. The patient has received 2, 5% albumin's drapes. Currently the patient is on clevidipine for blood pressure control and insulin drip. Producing adequate amount of urine output. Creatinine is at 1.1. Hemodynamically stable. Ionized calcium was low and the patient was given 2 g of calcium gluconate. On 03/16/2017 the patient is extubated. The patient got extubated yesterday without any major difficulties and currently is on room air. Oximetry well. No desaturations. Using incentive spirometer. Sternum stable clean and intact. The mediastinal and the pleural chest tubes are still in place and output has dropped considerably. Hemoglobin is stable and the patient had received a total of 3 units of packed RBCs. The [place] have been removed and the cordis still in place. Chest x-ray from today shows postsurgical changes without evidence of any pneumothorax and the lungs are well expanded bilaterally. The patient is on no pressors. The patient on insulin drip at 2.5 units an hour which will be switched to subcu coverage. He had some clear liquid diet earlier this morning. No bowel movements yet. Sitting up on a chair. No cardiac arrhythmias of been noted. Afebrile. No other significant events overnight. Urine output is adequate more than 25 mL an hour. On 03/17/2017 the patient remains extubated. Yesterday afternoon the patient started having some increased shortness of breath. He became progressively more hypoxemic and had to placed on high flow oxygen 6 L/m nasal cannula. Chest x-ray from today showing the [place] pleural effusion on the right. Chest tubes are all in good location. Noted the patient also had developed a drop in hemoglobin down to 6.7. He was given a unit of packed RBC. He also dropped his pressure and he had to be placed on norepinephrine infusion for a few hours and currently his been off for more than 6 hours. He is producing adequate amount of urine output in the order of 20-25 an hour. Chest tubes both mediastinal and pleural are still producing serosanguineous somewhat bloody liquidy material at the rate of 20-30 mL an hour basis. He is weaned down to 4 L/m nasal cannula. Is using incentive spirometer. No nausea or vomiting. No chest pain. He has no specific complaints otherwise for now. Creatinine is at 1.4 which is close to his baseline. Objective - Vital Signs Vital signs: Vital Signs Temp 98.5 F 03/17/17 08:00 Pulse 87 03/17/17 11:00 Resp 12 03/17/17 11:00 BP 110/61 03/17/17 11:00 Pulse Ox 98 03/17/17 11:00 Intake & Output 03/16/17 03/17/17 03/17/17 18:59 06:59 18:59 Intake Total 822 1105 148 Output Total 877 5215 275 Balance -55 -370 -127 Weight 84.2 kg 80.9 kg Intake: IV 792 432 148 Calcium Gluconate 2,000 100 mg In Sodium Chloride 0.9 % 100 ml @ 100 mls/hr IVPB ONCE PRN Rx#: [id number] Lactated Ringers 1,000 ml 420 360 130 @ 20 mls/hr IV .Q24H [facility] Rx#:[id number] Magnesium Sulfate-D5w Pmx 100 1 gm In Dextrose/Water 1 100ml.bag @ 100 mls/hr IVPB Q1H [facility] Rx#: [id number] Pressure Bag 72 72 18 ceFAZolin 2 gm In Sodium 100 Chloride 0.9% 100 ml @ 100 mls/hr IVPB Q8HR [facility] Rx#:[id number] Intake, IV Titration 0 3 Amount Clevidipine Butyrate 25 3 mg In Empty Bag 1 bag @ 1 MG/HR 2 mls/hr IV .Q24H [facility] Rx#:[id number] Insulin Regular 100 unit 0 In Sodium Chloride 0.9% 100 ml @ Per Protocol IV .Q0M [facility] Rx#:[id number] Oral 30 Blood Product 620 Rc Pheresis 2 As3 Unit 310 [id number] Other 50 Rc Pheresis 2 As3 Unit 50 [id number] Output: Chest Tube Drainage 445 445 50 Left Pleural 185 225 30 Mediastinal x 2 260 220 20 Drainage 40 0 Left Calf 30 0 Right Medial Thigh 10 0 Urine 432 990 225 Other: Voiding Method Indwelling Catheter Indwelling Catheter ABP, PAP, CO, CI - Last Documented Arterial Blood Pressure 114/49 Pulmonary Artery Pressure 20/12 Cardiac Output 6 Cardiac Index 3.2 - Exam Head exam was generally normal. There was no scleral icterus or corneal arcus. Mucous membranes were moist. Neck is supple and the patient has a right IJ Cordis in place. Mucous membranes are dry. Distal with or neck masses. Lungs sounds are diminished bilaterally. Sternum stable clean and intact. The patient has 2 mediastinal chest tubes and 1 pleural chest tube on the left. Heart sounds are regular and there is a pericardial rub. Positive S1-S2. No significant murmurs appreciated.Abdominal exam revealed normal bowel sounds. The abdomen was soft, non-tender, and without masses, organomegaly, or appreciable enlargement of the abdominal aorta.Examination of the extremities revealed easily palpable radial, femoral and pedal pulses. There was no cyanosis , clubbing or edema. - Labs CBC & Chem 7: 03/17/17 03:25 03/17/17 03:25 Labs: Abnormal Lab Results - Last 24 Hours (Table) 03/13/17 03/16/17 03/16/17 Range/Units 09:07 13:02 14:33 RBC (4.30-5.90) m/uL Hgb (13.0-17.5) gm/dL Hct (39.0-53.0) % Plt Count (150-450) k/uL Lymphocytes # (1.0-4.8) k/uL PT (9.0-12.0) sec INR (<1.2) Sodium (137-145) mmol/L BUN (9-20) mg/dL Creatinine (0.66-1.25) mg/dL Glucose (74-99) mg/dL POC Glucose (mg/dL) 120 H 106 H (75-99) mg/dL Calcium (8.4-10.2) mg/dL Total Protein (6.3-8.2) g/dL Crossmatch See Detail 03/16/17 03/16/17 03/16/17 Range/Units 17:05 19:50 20:20 RBC 1.71 L 2.20 L (4.30-5.90) m/uL Hgb 5.4 L* D 6.7 L* (13.0-17.5) gm/dL Hct 15.1 L* 19.7 L* (39.0-53.0) % Plt Count 102 L 127 L (150-450) k/uL Lymphocytes # (1.0-4.8) k/uL PT (9.0-12.0) sec INR (<1.2) Sodium (137-145) mmol/L BUN (9-20) mg/dL Creatinine (0.66-1.25) mg/dL Glucose (74-99) mg/dL POC Glucose (mg/dL) 116 H (75-99) mg/dL Calcium (8.4-10.2) mg/dL Total Protein (6.3-8.2) g/dL Crossmatch 03/16/17 03/17/17 03/17/17 Range/Units 21:28 02:00 03:25 RBC (4.30-5.90) m/uL Hgb (13.0-17.5) gm/dL Hct (39.0-53.0) % Plt Count (150-450) k/uL Lymphocytes # (1.0-4.8) k/uL PT (9.0-12.0) sec INR (<1.2) Sodium 135 L (137-145) mmol/L BUN 28 H (9-20) mg/dL Creatinine 1.40 H (0.66-1.25) mg/dL Glucose 123 H (74-99) mg/dL POC Glucose (mg/dL) 139 H 109 H (75-99) mg/dL Calcium 8.3 L (8.4-10.2) mg/dL Total Protein 5.4 L (6.3-8.2) g/dL Crossmatch 03/17/17 03/17/17 03/17/17 Range/Units 03:25 03:25 07:51 RBC 2.62 L (4.30-5.90) m/uL Hgb 7.9 L (13.0-17.5) gm/dL Hct 23.0 L (39.0-53.0) % Plt Count 131 L (150-450) k/uL Lymphocytes # 0.9 L (1.0-4.8) k/uL PT 12.1 H (9.0-12.0) sec INR 1.2 H (<1.2) Sodium (137-145) mmol/L BUN (9-20) mg/dL Creatinine (0.66-1.25) mg/dL Glucose (74-99) mg/dL POC Glucose (mg/dL) 118 H (75-99) mg/dL Calcium (8.4-10.2) mg/dL Total Protein (6.3-8.2) g/dL Crossmatch Assessment and Plan Plan: Assessment 1 multivessel coronary artery disease and the patient is status post four- vessel coronary artery bypass surgery including CASTELLANOS to LAD. Patient is postop day #2. 2 post surgical right-sided pleural effusion currently on 3-4 L of oxygen nasal cannula. There is also some left-sided pleural effusion and patient has a left- sided chest tube is still draining at this point. Based on tubes are also in place. 3 anemia with subsequent drop in hemoglobin down to 6.7 and the patient got transfused another unit of packed RBC and hemoglobin is up to 7.9 4 chronic renal failure, creatinine is normal at this point and the patient is producing adequate amount of urine output. Creatinine is back to its baseline is around 1.4. 5 carotid artery disease, as discussed earlier 6 hypertension 8 hyperlipidemia 9. Hearing 10 throat cancer back in 2005, post chemoradiation therapy Plan Continue monitoring the output from the chest tube. Monitor hemoglobin. Pulmonary status is stable. Chest x-ray was reviewed. Hemodynamically stable. Encouraged use of incentive spirometer. [place] for pain control. The patient is currently off pressors. Keep him in ICU for 24 hours. Repeat hemoglobin and afternoon. Encouraged use of incentive spirometer. No plans to remove the chest tube today. He still having active output. We will continue to follow I will keep in ICU.
[2017-03-17 12:38] LABS: Glucose,Whole Blood 69 mg/dL (75-99)
[2017-03-17 12:53] LABS: Glucose,Whole Blood 106 mg/dL (75-99)
[2017-03-17 15:11] LABS: Basophils % (A) 0 %; Eosinophils # (A) 0.4 k/uL (0-0.7); Eosinophils % (A) 4 %; HCT 21.7 % (39.0-53.0); HDW 2.94; HGB 7.4 gm/dL (13.0-17.5); Luc # (Auto) 0.13; Luc % (Auto) 2; Lymphocytes # (A) 0.7 k/uL (1.0-4.8); Lymphocytes % (A) 8 %; MCH 30.4 pg (25.0-35.0); MCHC 34.2 g/dL (31.0-37.0); MCV 88.8 fL (80.0-100.0); Mean Platelet Volume 7.5; Monocytes # (A) 0.3 k/uL (0-1.0); Monocytes % (A) 3 %; Neutrophils # (A) 7.1 k/uL (1.3-7.7); Neutrophils % (A) 82 %; RBC 2.44 m/uL (4.30-5.90); RDW 15.4 % (11.5-15.5); WBC 8.6 k/uL (3.8-10.6); WBC (Perox) 9.33
[2017-03-17 15:42] LABS: Glucose,Whole Blood 130 mg/dL (75-99)
[2017-03-17 17:45] LABS: Glucose,Whole Blood 112 mg/dL (75-99)
[2017-03-17 20:17] LABS: Glucose,Whole Blood 119 mg/dL (75-99)
[2017-03-17] MEDS: SENNOSIDES-DOCUSATE SODIUM 1 EACH TAB PO SCH (20:47)
[2017-03-18 02:39] LABS: Glucose,Whole Blood 121 mg/dL (75-99)
[2017-03-18 05:58] LABS: Basophils % (A) 0 %; CH 30.3; CHCM 33.1; Eosinophils # (A) 0.5 k/uL (0-0.7); Eosinophils % (A) 5 %; HCT 24.7 % (39.0-53.0); HDW 2.79; HGB 8.3 gm/dL (13.0-17.5); Luc # (Auto) 0.18; Luc % (Auto) 2; Lymphocytes # (A) 0.8 k/uL (1.0-4.8); Lymphocytes % (A) 9 %; MCHC 33.7 g/dL (31.0-37.0); Monocytes # (A) 0.3 k/uL (0-1.0); Monocytes % (A) 4 %; Neutrophils # (A) 7.7 k/uL (1.3-7.7); Neutrophils % (A) 81 %; RBC 2.68 m/uL (4.30-5.90); RDW 15.5 % (11.5-15.5); WBC 9.5 k/uL (3.8-10.6); WBC (Perox) 9.32
[2017-03-18 06:12] LABS: ALT 28 U/L (21-72); AST 22 U/L (17-59); Alkaline Phosphatase 45 U/L (38-126); Blood Urea Nitrogen 28 mg/dL (9-20); Calcium 8.6 mg/dL (8.4-10.2); Carbon Dioxide 23 mmol/L (22-30); Chloride 101 mmol/L (98-107); Glucose 99 mg/dL (74-99); Magnesium 2.1 mg/dL (1.6-2.3); Non-African American GFR(MDRD) 54 (>60 ml/min/1.73 sqM); Phosphorous 2.2 mg/dL (2.5-4.5); Potassium 4.1 mmol/L (3.5-5.1); Total Bilirubin 1.1 mg/dL (0.2-1.3); Total Protein 5.4 g/dL (6.3-8.2)
[2017-03-18 06:31] LABS: Anion Gap 10 mmol/L; Sodium 134 mmol/L (137-145)
[2017-03-18] MEDS: LEVOTHYROXINE 112 MCG TAB PO SCH (06:48)
[2017-03-18] MEDS: HYDROcodone/APAP 5-325MG 1 EACH TAB PO PRN (06:48)
[2017-03-18] MEDS ORDERED: SODIUM PHOSPHATE 10 MMOL in SODIUM CHLORIDE 0.9% 250 ML IVPB ONE (07:07)
[2017-03-18 07:50] LABS: Glucose,Whole Blood 103 mg/dL (75-99)
[2017-03-18] MEDS: INSULIN LISPRO (humaLOG) 300 UNIT/3 ML VIAL SQ SCH ×3 (08:06→17:59)
--- NOTE | 2017-03-18 08:06 | XR ---
EXAMINATION TYPE: XR chest 1V portable DATE OF EXAM: 03/18/2017 HISTORY: Shortness of breath. COMPARISON: 03/17/2017 TECHNIQUE: Single view of the chest is submitted. FINDINGS: Left-sided chest tube is unchanged in position as well as mediastinal drains. No evidence for pneumot horax. No change in basilar opacities. The heart is stable. Hilar and mediastinal structures are within normal limits. Degenerative changes are seen of the dorsal spine. IMPRESSION: 1. Stable chest.
[2017-03-18] MEDS: ASPIRIN 81 MG CHEW PO SCH (08:20)
[2017-03-18] MEDS: ATORVASTATIN 40 MG TAB PO SCH (08:20)
[2017-03-18] MEDS: HEPARIN SODIUM,PORCINE 5,000 UNIT/ML 1 ML VIAL SQ SCH ×3 (08:20→23:15)
[2017-03-18] MEDS: PANTOPRAZOLE 40 MG TABLET PO SCH (08:20)
[2017-03-18] MEDS: MUPIROCIN 2% OINT 22 GM TUBE NASAL SCH ×2 (08:20→20:39)
[2017-03-18] MEDS: CLOPIDOGREL 75 MG TAB PO SCH (08:21)
[2017-03-18] MEDS: METOPROLOL TARTRATE 12.5 MG TAB PO SCH ×2 (08:21→20:38)
--- NOTE | 2017-03-18 08:30 | PN ---
Mr. Burgos is a 71-year-old gentleman who underwent aortocoronary bypass surgery with CASTELLANOS graft to the LAD and vein graft to diagonal and also OM branch and also the RCA. Yesterday the patient had issues with hypotension, anemia, and also pleural effusions. Patient required vasopressors for a brief period of time. Patient seems to be more stable hemodynamically. His chest and mediastinal tubes are still draining some bloody fluid. Patient however, seems to be more stable clinically. Denies any significant chest pain. Does not appear to be in acute distress. Blood pressure is 114/50, pulse rate is about 87, respirations 12. His neck is supple. Heart: S1, S2 heard. Lungs showed diminished breath sounds at the bases. Abdomen is soft. Extremities: No significant edema. Lab values showed hemoglobin of 7.9 after 1 unit of blood transfusion. His creatinine is 1.4. FINAL IMPRESSION: 1. Status post bypass surgery. 2. Anemia and hypotension transiently yesterday, but seems to be hemodynamically stable today. 3. Bilateral pleural effusion. 4. Anemia. 5. Hypertensive cardiovascular disease. PLAN: Continue current medical therapy. Currently he is on aspirin, Plavix, Lipitor, insulin, Synthroid, metoprolol. Stay with current medical therapy. Will follow him along with you. ANDRA
--- NOTE | 2017-03-18 09:44 | P.PN ---
Subjective Principal diagnosis: Severe symptomatic multivessel coronary artery disease. Unstable angina. Left main disease. Preserved left ventricular function. Bilateral carotid stenosis. Hypertension. Hyperlipidemia. History of throat cancer with chemo and radiation, status post modified radical neck dissection. History of tobacco dependence. POD #3 elective off-pump non-aortic clamp quadruple coronary artery bypass grafting using the left internal mammary to the left anterior descending artery. Reverse saphenous vein graft connected to the aorta using the PassPort device and connected distally to the right coronary artery before the bifurcation. Saphenous vein graft connected to the aorta using the PassPort device and connected distally to the lateral branching of the first diagonal artery, reverse saphenous vein graft connected to the aorta using the PassPort device and connected distally to the second obtuse marginal artery. Bilateral endoscopic harvesting of the greater saphenous vein except for the segment below the left knee. Epi-aortic scanning and graft flow measurements using the [employer] system. Postoperative acute blood loss anemia, and expected outcome of surgery, treated with blood transfusion. Currently sitting up in a recliner in no acute distress. Denies pain, shortness of breath. States he is very tired, not sleeping much at night. States he has a lot of postnasal drip causing him to lack an appetite. Objective - Vital Signs Vital signs: Vital Signs Temp 98.4 F 03/18/17 08:00 Pulse 87 03/18/17 08:00 Resp 19 03/18/17 08:00 BP 106/62 03/18/17 08:00 Pulse Ox 94 L 03/18/17 08:00 Intake & Output 03/17/17 03/18/17 03/18/17 18:59 06:59 18:59 Intake Total 148 250 Output Total 645 877 130 Balance -497 -877 120 Weight 80.9 kg 84.1 kg Intake: IV 148 Lactated Ringers 1,000 ml 130 @ 20 mls/hr IV .Q24H [facility] Rx#:[id number] Pressure Bag 18 Intake, IV Titration 250 Amount Sodium Phosphate 10 mmol 250 In Sodium Chloride 0.9% 250 ml @ 125 mls/hr IVPB ONCE ONE Rx#:[id number] Output: Chest Tube Drainage 160 300 60 Left Pleural 70 220 30 Mediastinal x 2 90 80 30 Drainage 0 Left Calf 0 Right Medial Thigh 0 Urine 485 577 70 Other: Voiding Method Indwelling Catheter Indwelling Catheter # Bowel Movements 0 ABP, PAP, CO, CI - Last Documented Arterial Blood Pressure 114/49 Pulmonary Artery Pressure 20/12 Cardiac Output 6 Cardiac Index 3.2 - Constitutional General appearance: Present: cooperative, no acute distress - Respiratory Details: Lungs sounds diminished bilaterally. Respirations even, nonlabored. Currently on 2 L nasal cannula with oxygen saturation 96%. Able to achieve 1000 mL on incentive spirometer. Left pleural chest tube to -20 cm wall suction, 140 mL serous drainage overnight, 300 mL in the last 24 hours. Mediastinal chest tube to -20 cm wall suction, 40 mL serous drainage overnight, 200 mL the last 24 hours. No air leaks present. - Cardiovascular Details: S1, S2 present. Regular rate and rhythm, normal sinus rhythm on telemetry. Sternum stable. Heart hugger in place with patient demonstrating appropriate use. Teds/SCDs present. No edema present. - Gastrointestinal Gastrointestinal Comment(s): Abdomen soft, nontender, nondistended. Hypoactive bowel sounds present 4 quadrants. Tolerating diet although not very hungry. - Genitourinary Genitourinary Comment(s): Key present draining clear, yellow urine. Output 30-100 mL per hour. - Integumentary Integumentary Comment(s): Anterior chest incision well approximated covered with dry intact dressing. Bilateral lower extremity EVH sites well approximated, CHANDA drains in place with minimal output. - Musculoskeletal Musculoskeletal: Present: gait normal, strength equal bilaterally - Psychiatric Psychiatric: Present: A&O x's 3, appropriate affect, intact judgment & insight - Allied health notes Allied health notes reviewed: nursing - Labs CBC & Chem 7: 03/18/17 05:22 03/18/17 05:22 Labs: Abnormal Lab Results - Last 24 Hours (Table) 03/17/17 03/17/17 03/17/17 Range/Units 12:36 12:51 14:41 RBC 2.44 L (4.30-5.90) m/uL Hgb 7.4 L (13.0-17.5) gm/dL Hct 21.7 L (39.0-53.0) % Plt Count 130 L (150-450) k/uL Lymphocytes # 0.7 L (1.0-4.8) k/uL Sodium (137-145) mmol/L BUN (9-20) mg/dL Creatinine (0.66-1.25) mg/dL POC Glucose (mg/dL) 69 L 106 H (75-99) mg/dL Phosphorus (2.5-4.5) mg/dL Total Protein (6.3-8.2) g/dL 03/17/17 03/17/17 03/17/17 Range/Units 15:40 17:42 20:15 RBC (4.30-5.90) m/uL Hgb (13.0-17.5) gm/dL Hct (39.0-53.0) % Plt Count (150-450) k/uL Lymphocytes # (1.0-4.8) k/uL Sodium (137-145) mmol/L BUN (9-20) mg/dL Creatinine (0.66-1.25) mg/dL POC Glucose (mg/dL) 130 H 112 H 119 H (75-99) mg/dL Phosphorus (2.5-4.5) mg/dL Total Protein (6.3-8.2) g/dL 03/18/17 03/18/17 03/18/17 Range/Units 02:37 05:22 05:22 RBC 2.68 L (4.30-5.90) m/uL Hgb 8.3 L (13.0-17.5) gm/dL Hct 24.7 L (39.0-53.0) % Plt Count 140 L (150-450) k/uL Lymphocytes # 0.8 L (1.0-4.8) k/uL Sodium 134 L (137-145) mmol/L BUN 28 H (9-20) mg/dL Creatinine 1.30 H (0.66-1.25) mg/dL POC Glucose (mg/dL) 121 H (75-99) mg/dL Phosphorus 2.2 L (2.5-4.5) mg/dL Total Protein 5.4 L (6.3-8.2) g/dL 03/18/17 Range/Units 07:48 RBC (4.30-5.90) m/uL Hgb (13.0-17.5) gm/dL Hct (39.0-53.0) % Plt Count (150-450) k/uL Lymphocytes # (1.0-4.8) k/uL Sodium (137-145) mmol/L BUN (9-20) mg/dL Creatinine (0.66-1.25) mg/dL POC Glucose (mg/dL) 103 H (75-99) mg/dL Phosphorus (2.5-4.5) mg/dL Total Protein (6.3-8.2) g/dL - Imaging and Cardiology Chest x-ray: report reviewed, image reviewed Assessment and Plan (1) Carotid artery disease Status: Acute (2) Coronary artery disease Status: Acute (3) History of cancer tonsil Status: Acute (4) History of syncope Status: Acute (5) Hyperlipidemia Status: Acute (6) Hypertension Status: Acute (7) Tobacco dependence in remission Status: Acute (8) Acute blood loss anemia Status: Acute Plan: 1. Continue low-dose aspirin, Plavix, Lipitor, beta lizz. Will maximize beta lizz therapy as tolerated. 2. Will discontinue mediastinal chest tube today. Discontinue key today. 3. Encourage incentive spirometry use. Wean O2 as tolerated. 4. Increase activity, ambulate in hallway. Physical therapy to follow. 5. Will monitor chest tube output, daily labs and x-rays. 6. GI/DVT prophylaxis. 7. Diabetic management per primary care services. 8. Keep in ICU one more day. More recommendations as patient progresses. Time with Patient: Greater than 30
--- NOTE | 2017-03-18 10:56 | P.PN ---
Subjective A 71-year-old male patient who is post coronary artery bypass surgery and I was asked to be involved in the critical care management and vent management. This patient was having increased chest discomfort typical of angina. The patient underwent cardiac catheterization and demonstrated 40% proximal RCA lesion 40-50 % mid RCA lesion, 40% narrowing in the left main, 70% disease in the proximal LAD and 70% diagonal branch, 80% diagonal branch, 90% first of diffuse marginal branch and 5060% in the circumflex. Our study was done and the patient showed to have severe disease involving the right internal carotid artery disease and intermediate disease involving the left common carotid and left internal carotid artery. He is known to have hypertension. Hyperlipidemia. The patient underwent off-pump coronary artery bypass surgery with CASTELLANOS to LAD, saphenous vein graft to diagonal, obtuse marginal and RCA. Currently intubated on a mechanical ventilator and sedated with Diprivan. His assist-control mode of ventilation at the rate of 12, tidal volume 500, FiO2 of 40% and a PEEP of 5. The patient immediate postoperative blood This showed a pH of 7.35 with a pCO2 of 42 and pO2 of 513 and based on that the FiO2 was dropped from 100% on to 40%. His saturation remains around 97%. Chest x-ray shows adequate expansion of both lungs without evidence of any pneumothorax. ET tube is in a good location. The patient has 2 mediastinal chest tubes and 1 pleural chest tube all of them were actively draining since his surgery and his drainage has slowed down over the past few hours. The patient required to be given a total of 2 units of packed RBC intraoperatively, 4 units of fresh frozen plasma and 5 platelet concentrates. The hemoglobin at this point is on 7.0 and the patient is receiving another unit of packed RBC. PA pressures around 30/12 and the cardiac index is 2.7. The patient has received 2, 5% albumin's drapes. Currently the patient is on clevidipine for blood pressure control and insulin drip. Producing adequate amount of urine output. Creatinine is at 1.1. Hemodynamically stable. Ionized calcium was low and the patient was given 2 g of calcium gluconate. On 03/16/2017 the patient is extubated. The patient got extubated yesterday without any major difficulties and currently is on room air. Oximetry well. No desaturations. Using incentive spirometer. Sternum stable clean and intact. The mediastinal and the pleural chest tubes are still in place and output has dropped considerably. Hemoglobin is stable and the patient had received a total of 3 units of packed RBCs. The [place] have been removed and the cordis still in place. Chest x-ray from today shows postsurgical changes without evidence of any pneumothorax and the lungs are well expanded bilaterally. The patient is on no pressors. The patient on insulin drip at 2.5 units an hour which will be switched to subcu coverage. He had some clear liquid diet earlier this morning. No bowel movements yet. Sitting up on a chair. No cardiac arrhythmias of been noted. Afebrile. No other significant events overnight. Urine output is adequate more than 25 mL an hour. On 03/17/2017 the patient remains extubated. Yesterday afternoon the patient started having some increased shortness of breath. He became progressively more hypoxemic and had to placed on high flow oxygen 6 L/m nasal cannula. Chest x-ray from today showing the [place] pleural effusion on the right. Chest tubes are all in good location. Noted the patient also had developed a drop in hemoglobin down to 6.7. He was given a unit of packed RBC. He also dropped his pressure and he had to be placed on norepinephrine infusion for a few hours and currently his been off for more than 6 hours. He is producing adequate amount of urine output in the order of 20-25 an hour. Chest tubes both mediastinal and pleural are still producing serosanguineous somewhat bloody liquidy material at the rate of 20-30 mL an hour basis. He is weaned down to 4 L/m nasal cannula. Is using incentive spirometer. No nausea or vomiting. No chest pain. He has no specific complaints otherwise for now. Creatinine is at 1.4 which is close to his baseline. On 03/15/2017 the patient remains extubated. The mediastinal chest tubes were moved today and the patient only has a left pleural chest tube. Sternum stable clean and intact. Hemodynamically stable. At 2 L/m nasal cannula and his saturations around 94-95%. Adequate urine output. Creatinine is stable at 1.3. Remains stable at 8.3. S x-ray from today is showing stable post thoracotomy findings with a left-sided chest tube and the rest of the hilar and the stent structures are all within normal limits. There may be a small right- sided pleural effusion. Objective - Vital Signs Vital signs: Vital Signs Temp 98.4 F 03/18/17 08:00 Pulse 92 03/18/17 10:00 Resp 24 03/18/17 10:00 BP 105/51 03/18/17 10:00 Pulse Ox 93 L 03/18/17 10:00 Intake & Output 03/17/17 03/18/17 03/18/17 18:59 06:59 18:59 Intake Total 148 250 Output Total 645 877 250 Balance -497 -877 0 Weight 80.9 kg 84.1 kg 84.1 kg Intake: IV 148 Lactated Ringers 1,000 ml 130 @ 20 mls/hr IV .Q24H [facility] Rx#:[id number] Pressure Bag 18 Intake, IV Titration 250 Amount Sodium Phosphate 10 mmol 250 In Sodium Chloride 0.9% 250 ml @ 125 mls/hr IVPB ONCE ONE Rx#:[id number] Output: Chest Tube Drainage 160 300 110 Left Pleural 70 220 60 Mediastinal x 2 90 80 50 Drainage 0 Left Calf 0 Right Medial Thigh 0 Urine 485 577 140 Other: Voiding Method Indwelling Catheter Indwelling Catheter # Bowel Movements 0 0 ABP, PAP, CO, CI - Last Documented Arterial Blood Pressure 114/49 Pulmonary Artery Pressure 20/12 Cardiac Output 6 Cardiac Index 3.2 - Exam Head exam was generally normal. There was no scleral icterus or corneal arcus. Mucous membranes were moist. Neck is supple and the patient has a right IJ Cordis in place. Mucous membranes are dry. Distal with or neck masses. Lungs sounds are diminished bilaterally. Sternum stable clean and intact. The patient a shunt has a single 1 pleural chest tube on the left. Heart sounds are regular and there is a pericardial rub. Positive S1-S2. No significant murmurs appreciated.Abdominal exam revealed normal bowel sounds. The abdomen was soft, non-tender, and without masses, organomegaly, or appreciable enlargement of the abdominal aorta.Examination of the extremities revealed easily palpable radial, femoral and pedal pulses. There was no cyanosis, clubbing or edema. - Labs CBC & Chem 7: 03/18/17 05:22 03/18/17 05:22 Labs: Abnormal Lab Results - Last 24 Hours (Table) 03/17/17 03/17/17 03/17/17 Range/Units 12:36 12:51 14:41 RBC 2.44 L (4.30-5.90) m/uL Hgb 7.4 L (13.0-17.5) gm/dL Hct 21.7 L (39.0-53.0) % Plt Count 130 L (150-450) k/uL Lymphocytes # 0.7 L (1.0-4.8) k/uL Sodium (137-145) mmol/L BUN (9-20) mg/dL Creatinine (0.66-1.25) mg/dL POC Glucose (mg/dL) 69 L 106 H (75-99) mg/dL Phosphorus (2.5-4.5) mg/dL Total Protein (6.3-8.2) g/dL 03/17/17 03/17/17 03/17/17 Range/Units 15:40 17:42 20:15 RBC (4.30-5.90) m/uL Hgb (13.0-17.5) gm/dL Hct (39.0-53.0) % Plt Count (150-450) k/uL Lymphocytes # (1.0-4.8) k/uL Sodium (137-145) mmol/L BUN (9-20) mg/dL Creatinine (0.66-1.25) mg/dL POC Glucose (mg/dL) 130 H 112 H 119 H (75-99) mg/dL Phosphorus (2.5-4.5) mg/dL Total Protein (6.3-8.2) g/dL 03/18/17 03/18/17 03/18/17 Range/Units 02:37 05:22 05:22 RBC 2.68 L (4.30-5.90) m/uL Hgb 8.3 L (13.0-17.5) gm/dL Hct 24.7 L (39.0-53.0) % Plt Count 140 L (150-450) k/uL Lymphocytes # 0.8 L (1.0-4.8) k/uL Sodium 134 L (137-145) mmol/L BUN 28 H (9-20) mg/dL Creatinine 1.30 H (0.66-1.25) mg/dL POC Glucose (mg/dL) 121 H (75-99) mg/dL Phosphorus 2.2 L (2.5-4.5) mg/dL Total Protein 5.4 L (6.3-8.2) g/dL 03/18/17 Range/Units 07:48 RBC (4.30-5.90) m/uL Hgb (13.0-17.5) gm/dL Hct (39.0-53.0) % Plt Count (150-450) k/uL Lymphocytes # (1.0-4.8) k/uL Sodium (137-145) mmol/L BUN (9-20) mg/dL Creatinine (0.66-1.25) mg/dL POC Glucose (mg/dL) 103 H (75-99) mg/dL Phosphorus (2.5-4.5) mg/dL Total Protein (6.3-8.2) g/dL Assessment and Plan Plan: Assessment 1 multivessel coronary artery disease and the patient is status post four- vessel coronary artery bypass surgery including CASTELLANOS to LAD. Patient is postop day #3. 2 post surgical right-sided pleural effusion and a small left-sided chest tube. The patient is currently on 2 L of oxygen nasal cannula. B-cell chest tubes have been removed. 3 anemia , stable hemoglobin for now at 8.2 postoperative received a total of 4 units of packed RBCs. 4 chronic renal failure, creatinine is normal at this point and the patient is producing adequate amount of urine output. Creatinine is back to its baseline is around 1.3. 5 carotid artery disease, as discussed earlier 6 hypertension 8 hyperlipidemia 9. Hearing impairment 10 throat cancer back in 2005, post chemoradiation therapy Plan Continue monitoring the output from the chest tube on the left. B-cell chest is a been removed. Hemodynamically stable. Ablate in the hallway. Incentive spirometer. We'll follow.
[2017-03-18] MEDS: OXYMETAZOLINE 0.05% NASL SPRAY 15 ML NASAL SCH ×2 (11:03→20:39)
[2017-03-18 12:04] LABS: Glucose,Whole Blood 102 mg/dL (75-99)
[2017-03-18] MEDS ORDERED: FUROSEMIDE 10 MG/ML 4 ML VIAL IV STA (15:01)
[2017-03-18] MEDS: ACETAMINOPHEN ORAL SUSP (PEDS) 3,840 MG/120 ML BOTTLE PO PRN ×2 (16:58→23:15)
[2017-03-18] MEDS ORDERED: ALBUMIN HUMAN 5% 250 ML IVPB ONE (17:52)
[2017-03-18 17:54] LABS: Glucose,Whole Blood 129 mg/dL (75-99)
[2017-03-18] MEDS ORDERED: ALBUMIN HUMAN 5% 250 ML in EMPTY BAG 1 BAG IVPB ONE ×2 (17:56→18:24)
[2017-03-18 20:38] LABS: Glucose,Whole Blood 112 mg/dL (75-99)
[2017-03-18] MEDS: SENNOSIDES-DOCUSATE SODIUM 1 EACH TAB PO SCH (20:38)
[2017-03-19 05:56] LABS: Basophils % (A) 0 %; CH 30.4; CHCM 33.9; Eosinophils # (A) 0.4 k/uL (0-0.7); Eosinophils % (A) 6 %; HCT 23.4 % (39.0-53.0); HDW 2.81; Luc # (Auto) 0.16; Luc % (Auto) 2; Lymphocytes # (A) 0.7 k/uL (1.0-4.8); Lymphocytes % (A) 10 %; MCH 30.8 pg (25.0-35.0); MCHC 34.1 g/dL (31.0-37.0); MCV 90.2 fL (80.0-100.0); Mean Platelet Volume 8.5; Monocytes # (A) 0.3 k/uL (0-1.0); Monocytes % (A) 4 %; Neutrophils # (A) 5.4 k/uL (1.3-7.7); Neutrophils % (A) 78 %; RBC 2.59 m/uL (4.30-5.90); RDW 15.2 % (11.5-15.5); WBC (Perox) 7.01
[2017-03-19 06:14] LABS: ALT 25 U/L (21-72); AST 18 U/L (17-59); Alkaline Phosphatase 40 U/L (38-126); Anion Gap 10 mmol/L; Blood Urea Nitrogen 30 mg/dL (9-20); Calcium 8.2 mg/dL (8.4-10.2); Carbon Dioxide 26 mmol/L (22-30); Chloride 102 mmol/L (98-107); Glucose 96 mg/dL (74-99); Magnesium 2.1 mg/dL (1.6-2.3); Non-African American GFR(MDRD) 56 (>60 ml/min/1.73 sqM); Phosphorous 2.6 mg/dL (2.5-4.5); Potassium 3.6 mmol/L (3.5-5.1); Sodium 138 mmol/L (137-145); Total Bilirubin 1.1 mg/dL (0.2-1.3); Total Protein 5.2 g/dL (6.3-8.2)
[2017-03-19] MEDS: INSULIN LISPRO (humaLOG) 300 UNIT/3 ML VIAL SQ SCH ×5 (06:32→21:02)
--- NOTE | 2017-03-19 07:03 | XR ---
EXAMINATION TYPE: XR chest 1V portable DATE OF EXAM: 03/19/2017 HISTORY: post cardiac surgery. REFERENCE: Previous study dated 03/18/2017. FINDINGS: There has been a midline sternotomy. There is a left pleural drain in place. The heart is mildly prominent. There are bibasilar infiltrates. Suspect small, bilateral effusions. IMPRESSION: CONTINUING POSTOPERATIVE CHANGE.
[2017-03-19 07:38] LABS: Glucose,Whole Blood 122 mg/dL (75-99)
[2017-03-19] MEDS: POTASSIUM CHLORIDE 10 MEQ, LIDOCAINE 2% INJ 10 MG in SODIUM CHLORIDE 0.9% 100 ML IV SCH ×2 (08:19→09:32)
[2017-03-19] MEDS: HEPARIN SODIUM,PORCINE 5,000 UNIT/ML 1 ML VIAL SQ SCH ×3 (08:30→23:20)
[2017-03-19] MEDS: OXYMETAZOLINE 0.05% NASL SPRAY 15 ML NASAL SCH ×2 (08:35→21:11)
--- NOTE | 2017-03-19 09:10 | P.PN ---
Subjective Principal diagnosis: Severe symptomatic multivessel coronary artery disease. Unstable angina. Left main disease. Preserved left ventricular function. Bilateral carotid stenosis. Hypertension. Hyperlipidemia. History of throat cancer with chemo and radiation, status post modified radical neck dissection. History of tobacco dependence. POD #4 elective off-pump non-aortic clamp quadruple coronary artery bypass grafting using the left internal mammary to the left anterior descending artery. Reverse saphenous vein graft connected to the aorta using the PassPort device and connected distally to the right coronary artery before the bifurcation. Saphenous vein graft connected to the aorta using the PassPort device and connected distally to the lateral branching of the first diagonal artery, reverse saphenous vein graft connected to the aorta using the PassPort device and connected distally to the second obtuse marginal artery. Bilateral endoscopic harvesting of the greater saphenous vein except for the segment below the left knee. Epi-aortic scanning and graft flow measurements using the [employer] system. Postoperative acute blood loss anemia, and expected outcome of surgery, treated with blood transfusion. Currently sitting up in bed in no acute distress. Denies pain, shortness of breath. Does feel that he is coughing more after any oral intake, was present at home but is more pronounced now. Objective - Vital Signs Vital signs: Vital Signs Temp 98.6 F 03/19/17 04:00 Pulse 98 03/19/17 06:00 Resp 31 H 03/19/17 06:00 BP 114/62 03/19/17 06:00 Pulse Ox 93 L 03/19/17 06:00 Intake & Output 03/18/17 03/19/17 03/19/17 18:59 06:59 18:59 Intake Total 500 160 Output Total 1340 1125 Balance -840 -965 Weight 84.1 kg 79.9 kg Intake: IV 160 Lactated Ringers 1,000 ml 160 @ 20 mls/hr IV .Q24H [facility] Rx#:[id number] Intake, IV Titration 500 Amount Albumin Human 5% 250 ml 250 In Empty Bag 1 bag @ 250 mls/hr IVPB ONCE ONE Rx#: [id number] Sodium Phosphate 10 mmol 250 In Sodium Chloride 0.9% 250 ml @ 125 mls/hr IVPB ONCE ONE Rx#:[id number] Output: Chest Tube Drainage 170 120 Left Pleural 120 120 Mediastinal x 2 50 Drainage 30 Left Calf 30 Urine 1140 1005 Other: Voiding Method Indwelling Catheter Indwelling Catheter # Bowel Movements 0 ABP, PAP, CO, CI - Last Documented Arterial Blood Pressure 114/49 Pulmonary Artery Pressure 20/12 Cardiac Output 6 Cardiac Index 3.2 - Constitutional General appearance: Present: cooperative, no acute distress - Respiratory Details: Lungs sounds coarse bilaterally. Respirations even, nonlabored. Currently on 4 L nasal cannula with oxygen saturation 97%. Able to achieve 1250 mL on his incentive spirometry. Left pleural chest tube to -20 cm wall suction, 90 mL serous drainage overnight, 350 mL last 24 hours. - Cardiovascular Details: S1, S2 present. Regular rate and rhythm, normal sinus rhythm on telemetry. Sternum stable. Heart hugger in place with patient demonstrating appropriate use. Teds/SCDs present. No edema present. - Gastrointestinal Gastrointestinal Comment(s): Abdomen soft, nontender, nondistended. Active bowel sounds 4 quadrants. Currently nothing by mouth for a swallow eval with speech therapy. - Genitourinary Genitourinary Comment(s): Key still present draining clear, yellow urine. 50-75 mL overnight, diuresed well after Lasix given yesterday. - Integumentary Integumentary Comment(s): Anterior chest incision well approximated cover dry intact dressing. Bilateral lower extremity EVH sites well approximated, CHANDA drains in place, no significant output. - Musculoskeletal Musculoskeletal: Present: gait normal, strength equal bilaterally - Psychiatric Psychiatric: Present: A&O x's 3, appropriate affect, intact judgment & insight - Allied health notes Allied health notes reviewed: nursing - Labs CBC & Chem 7: 03/19/17 05:40 03/19/17 05:40 Labs: Abnormal Lab Results - Last 24 Hours (Table) 03/18/17 03/18/17 03/18/17 Range/Units 12:02 17:50 20:36 RBC (4.30-5.90) m/uL Hgb (13.0-17.5) gm/dL Hct (39.0-53.0) % Lymphocytes # (1.0-4.8) k/uL BUN (9-20) mg/dL Creatinine (0.66-1.25) mg/dL POC Glucose (mg/dL) 102 H 129 H 112 H (75-99) mg/dL Calcium (8.4-10.2) mg/dL Total Protein (6.3-8.2) g/dL Albumin (3.5-5.0) g/dL 03/19/17 03/19/17 03/19/17 Range/Units 05:40 05:40 07:36 RBC 2.59 L (4.30-5.90) m/uL Hgb 8.0 L (13.0-17.5) gm/dL Hct 23.4 L (39.0-53.0) % Lymphocytes # 0.7 L (1.0-4.8) k/uL BUN 30 H (9-20) mg/dL Creatinine 1.27 H (0.66-1.25) mg/dL POC Glucose (mg/dL) 122 H (75-99) mg/dL Calcium 8.2 L (8.4-10.2) mg/dL Total Protein 5.2 L (6.3-8.2) g/dL Albumin 3.2 L (3.5-5.0) g/dL - Imaging and Cardiology Chest x-ray: report reviewed, image reviewed Assessment and Plan (1) Carotid artery disease Status: Acute (2) Coronary artery disease Status: Acute (3) History of cancer tonsil Status: Acute (4) History of syncope Status: Acute (5) Hyperlipidemia Status: Acute (6) Hypertension Status: Acute (7) Tobacco dependence in remission Status: Acute (8) Acute blood loss anemia Status: Acute Plan: 1. Continue low-dose aspirin, Plavix, Lipitor, beta lizz. Will maximize beta lizz therapy as tolerated. 2. Await speech therapy recommendations/swallow eval. 3. Will discontinue left pleural chest tube today. Discontinue key today.Discontinue bilateral JPs today. 4. Encourage incentive spirometry use. Wean O2 as tolerated. 5. Increase activity, ambulate in hallway. Physical therapy to follow. 6. Will monitor daily labs and x-rays. 7. GI/DVT prophylaxis. 8. Diabetic management per primary care services. 9. More recommendations as patient progresses.Likely will transfer out of ICU this afternoon. Left pleural chest tube discontinued without incident. Pt nikia well. CXR in AM. Jimmy JPs discontinued. Time with Patient: Greater than 30
[2017-03-19] MEDS: CLOPIDOGREL 75 MG TAB PO SCH (09:32)
[2017-03-19] MEDS: ATORVASTATIN 40 MG TAB PO SCH (09:32)
[2017-03-19] MEDS: PANTOPRAZOLE 40 MG TABLET PO SCH (09:32)
[2017-03-19] MEDS: ASPIRIN 81 MG CHEW PO SCH (09:33)
[2017-03-19] MEDS: LEVOTHYROXINE 112 MCG TAB PO SCH (09:33)
[2017-03-19] MEDS ORDERED: METOPROLOL TARTRATE 25 MG TAB PO STA (09:53)
--- NOTE | 2017-03-19 12:13 | PN ---
Mr. Burgos is status post bypass surgery for multivessel disease including CASTELLANOS to the LAD. Patient's mediastinal tube was taken out today. Patient still has left chest tube. Hemodynamically stable. Patient's urine output remains stable. His kidney functions are normal. Chest x-ray showed left-sided chest tube. The patient seemed to be in good spirits. Does not complain of any significant chest pain. His blood pressure is running about 100 to 110 over 56, pulse rate is about 100, respirations 18, saturations 92%. Lab value showed hemoglobin of 8.3, electrolytes are normal. Creatinine is 1.3. Liver enzymes are normal. Physical examination reveals a 71-year-old gentleman who is alert, does not appear to be in acute distress. Lungs show diminished breath sounds at bases. Heart: S1, S2 heard. Extremities: No significant edema. PLAN: Continue current medical therapy. He is currently on aspirin, Lipitor 40 mg, Plavix 75 mg, insulin, Synthroid, metoprolol 12.5 mg p.o. b.i.d. Continue incentive spirometry and increase activity. FINAL IMPRESSION: 1. Status post bypass surgery. 2. Anemia postoperative. 3. Hypertensive cardiovascular disease. PLAN: Continue current medical therapy. Increase activity, incentive spirometer. MTDD
--- NOTE | 2017-03-19 12:25 | P.PN ---
Subjective A 71-year-old male patient who is post coronary artery bypass surgery and I was asked to be involved in the critical care management and vent management. This patient was having increased chest discomfort typical of angina. The patient underwent cardiac catheterization and demonstrated 40% proximal RCA lesion 40-50 % mid RCA lesion, 40% narrowing in the left main, 70% disease in the proximal LAD and 70% diagonal branch, 80% diagonal branch, 90% first of diffuse marginal branch and 5060% in the circumflex. Our study was done and the patient showed to have severe disease involving the right internal carotid artery disease and intermediate disease involving the left common carotid and left internal carotid artery. He is known to have hypertension. Hyperlipidemia. The patient underwent off-pump coronary artery bypass surgery with CASTELLANOS to LAD, saphenous vein graft to diagonal, obtuse marginal and RCA. Currently intubated on a mechanical ventilator and sedated with Diprivan. His assist-control mode of ventilation at the rate of 12, tidal volume 500, FiO2 of 40% and a PEEP of 5. The patient immediate postoperative blood This showed a pH of 7.35 with a pCO2 of 42 and pO2 of 513 and based on that the FiO2 was dropped from 100% on to 40%. His saturation remains around 97%. Chest x-ray shows adequate expansion of both lungs without evidence of any pneumothorax. ET tube is in a good location. The patient has 2 mediastinal chest tubes and 1 pleural chest tube all of them were actively draining since his surgery and his drainage has slowed down over the past few hours. The patient required to be given a total of 2 units of packed RBC intraoperatively, 4 units of fresh frozen plasma and 5 platelet concentrates. The hemoglobin at this point is on 7.0 and the patient is receiving another unit of packed RBC. PA pressures around 30/12 and the cardiac index is 2.7. The patient has received 2, 5% albumin's drapes. Currently the patient is on clevidipine for blood pressure control and insulin drip. Producing adequate amount of urine output. Creatinine is at 1.1. Hemodynamically stable. Ionized calcium was low and the patient was given 2 g of calcium gluconate. On 03/16/2017 the patient is extubated. The patient got extubated yesterday without any major difficulties and currently is on room air. Oximetry well. No desaturations. Using incentive spirometer. Sternum stable clean and intact. The mediastinal and the pleural chest tubes are still in place and output has dropped considerably. Hemoglobin is stable and the patient had received a total of 3 units of packed RBCs. The [place] have been removed and the cordis still in place. Chest x-ray from today shows postsurgical changes without evidence of any pneumothorax and the lungs are well expanded bilaterally. The patient is on no pressors. The patient on insulin drip at 2.5 units an hour which will be switched to subcu coverage. He had some clear liquid diet earlier this morning. No bowel movements yet. Sitting up on a chair. No cardiac arrhythmias of been noted. Afebrile. No other significant events overnight. Urine output is adequate more than 25 mL an hour. On 03/17/2017 the patient remains extubated. Yesterday afternoon the patient started having some increased shortness of breath. He became progressively more hypoxemic and had to placed on high flow oxygen 6 L/m nasal cannula. Chest x-ray from today showing the [place] pleural effusion on the right. Chest tubes are all in good location. Noted the patient also had developed a drop in hemoglobin down to 6.7. He was given a unit of packed RBC. He also dropped his pressure and he had to be placed on norepinephrine infusion for a few hours and currently his been off for more than 6 hours. He is producing adequate amount of urine output in the order of 20-25 an hour. Chest tubes both mediastinal and pleural are still producing serosanguineous somewhat bloody liquidy material at the rate of 20-30 mL an hour basis. He is weaned down to 4 L/m nasal cannula. Is using incentive spirometer. No nausea or vomiting. No chest pain. He has no specific complaints otherwise for now. Creatinine is at 1.4 which is close to his baseline. On 03/18/2017 the patient remains extubated. The mediastinal chest tubes were moved today and the patient only has a left pleural chest tube. Sternum stable clean and intact. Hemodynamically stable. At 2 L/m nasal cannula and his saturations around 94-95%. Adequate urine output. Creatinine is stable at 1.3. Remains stable at 8.3. S x-ray from today is showing stable post thoracotomy findings with a left-sided chest tube and the rest of the hilar and the structures are all within normal limits. There may be a small right-sided pleural effusion. On 03/19/2017 the patient is doing well. The left-sided pleural chest tube was removed. Chest x-ray shows adequate expansion of both lungs. No respiratory difficulties. No chest pain. Hemodynamically stable. Sternum stable clean and intact. No other significant events overnight. Cardiac rhythm remains sinus. Objective - Vital Signs Vital signs: Vital Signs Temp 98.6 F 03/19/17 08:00 Pulse 85 03/19/17 12:00 Resp 13 03/19/17 12:00 BP 87/50 03/19/17 12:00 Pulse Ox 94 L 03/19/17 12:00 Intake & Output 03/18/17 03/19/17 03/19/17 18:59 06:59 18:59 Intake Total 500 240 220 Output Total 1340 1125 121 Balance -840 -885 99 Weight 84.1 kg 79.9 kg 79.9 kg Intake: IV 240 20 Lactated Ringers 1,000 ml 240 20 @ 20 mls/hr IV .Q24H [facility] Rx#:[id number] Intake, IV Titration 500 200 Amount Albumin Human 5% 250 ml 250 In Empty Bag 1 bag @ 250 mls/hr IVPB ONCE ONE Rx#: [id number] Potassium Chloride 10 meq 200 Lidocaine 2% Inj 10 mg In Sodium Chloride 0.9% 100 ml @ 100 mls/hr IV Q1HR [facility] Rx#:[id number] Sodium Phosphate 10 mmol 250 In Sodium Chloride 0.9% 250 ml @ 125 mls/hr IVPB ONCE ONE Rx#:[id number] Output: Chest Tube Drainage 170 120 10 Left Pleural 120 120 10 Mediastinal x 2 50 Drainage 30 Left Calf 30 Urine 1140 1005 110 Stool 1 Other: Voiding Method Indwelling Catheter Indwelling Catheter Indwelling Catheter # Voids 1 # Bowel Movements 0 ABP, PAP, CO, CI - Last Documented Arterial Blood Pressure 114/49 Pulmonary Artery Pressure 20/12 Cardiac Output 6 Cardiac Index 3.2 - Exam Head exam was generally normal. There was no scleral icterus or corneal arcus. Mucous membranes were moist. Neck is supple and the patient has a right IJ Cordis in place. Mucous membranes are dry. Distal with or neck masses. Lungs sounds are diminished bilaterally. Sternum stable clean and intact. Heart sounds are regular and there is a pericardial rub. Positive S1-S2. No significant murmurs appreciated.Abdominal exam revealed normal bowel sounds. The abdomen was soft, non-tender, and without masses, organomegaly, or appreciable enlargement of the abdominal aorta.Examination of the extremities revealed easily palpable radial, femoral and pedal pulses. There was no cyanosis , clubbing or edema. - Labs CBC & Chem 7: 03/19/17 05:40 03/19/17 05:40 Labs: Abnormal Lab Results - Last 24 Hours (Table) 03/18/17 03/18/17 03/19/17 Range/Units 17:50 20:36 05:40 RBC (4.30-5.90) m/uL Hgb (13.0-17.5) gm/dL Hct (39.0-53.0) % Lymphocytes # (1.0-4.8) k/uL BUN 30 H (9-20) mg/dL Creatinine 1.27 H (0.66-1.25) mg/dL POC Glucose (mg/dL) 129 H 112 H (75-99) mg/dL Calcium 8.2 L (8.4-10.2) mg/dL Total Protein 5.2 L (6.3-8.2) g/dL Albumin 3.2 L (3.5-5.0) g/dL 03/19/17 03/19/17 Range/Units 05:40 07:36 RBC 2.59 L (4.30-5.90) m/uL Hgb 8.0 L (13.0-17.5) gm/dL Hct 23.4 L (39.0-53.0) % Lymphocytes # 0.7 L (1.0-4.8) k/uL BUN (9-20) mg/dL Creatinine (0.66-1.25) mg/dL POC Glucose (mg/dL) 122 H (75-99) mg/dL Calcium (8.4-10.2) mg/dL Total Protein (6.3-8.2) g/dL Albumin (3.5-5.0) g/dL Assessment and Plan Plan: Assessment 1 multivessel coronary artery disease and the patient is status post four- vessel coronary artery bypass surgery including CASTELLANOS to LAD. Patient is postop day #4. 2 post surgical right-sided pleural effusion , post surgical, stable for now. The patient is currently on 2 L of oxygen nasal cannula. 3 anemia , stable hemoglobin for now at 8.0 postoperative received a total of 4 units of packed RBCs. 4 chronic renal failure, creatinine is normal at this point and the patient is producing adequate amount of urine output. Creatinine is back to its baseline is around 1.3. 5 carotid artery disease, as discussed earlier 6 hypertension 8 hyperlipidemia 9. Hearing impairment 10 throat cancer back in 2005, post chemoradiation therapy Plan Patient is doing well. The left pleural chest tube has been removed. Hemoglobin stable at 8.0. Cardiac rhythm is sinus. He is doing his incentive spirometer and daily basis. No other issues or active complaints for now. He can be transferred out of the intensive care unit.
[2017-03-19 12:27] LABS: Glucose,Whole Blood 89 mg/dL (75-99)
--- NOTE | 2017-03-19 14:58 | P.PN ---
Subjective Principal diagnosis: This is a 71-year-old gentleman status post bypass surgery. Patient seemed to be clinically stable. He is having some issues with swallowing and is being followed by dietitian. Otherwise patient seems to be stable. Denies any chest pain or shortness of breath. Patient is maintaining sinus rhythm. His chest tubes are out. Patient is being transferred to telemetry unit. Objective - Vital Signs Vital signs: Vital Signs Temp 98.6 F 03/19/17 08:00 Pulse 91 03/19/17 14:00 Resp 22 03/19/17 13:00 BP 107/54 03/19/17 14:00 Pulse Ox 97 03/19/17 14:00 Intake & Output 03/18/17 03/19/17 03/19/17 18:59 06:59 18:59 Intake Total 500 240 220 Output Total 1340 1125 121 Balance -840 -885 99 Weight 84.1 kg 79.9 kg 79.9 kg Intake: IV 240 20 Lactated Ringers 1,000 ml 240 20 @ 20 mls/hr IV .Q24H [facility] Rx#:[id number] Intake, IV Titration 500 200 Amount Albumin Human 5% 250 ml 250 In Empty Bag 1 bag @ 250 mls/hr IVPB ONCE ONE Rx#: [id number] Potassium Chloride 10 meq 200 Lidocaine 2% Inj 10 mg In Sodium Chloride 0.9% 100 ml @ 100 mls/hr IV Q1HR [facility] Rx#:[id number] Sodium Phosphate 10 mmol 250 In Sodium Chloride 0.9% 250 ml @ 125 mls/hr IVPB ONCE ONE Rx#:[id number] Output: Chest Tube Drainage 170 120 10 Left Pleural 120 120 10 Mediastinal x 2 50 Drainage 30 Left Calf 30 Urine 1140 1005 110 Stool 1 Other: Voiding Method Indwelling Catheter Indwelling Catheter Indwelling Catheter # Voids 1 # Bowel Movements 0 ABP, PAP, CO, CI - Last Documented Arterial Blood Pressure 114/49 Pulmonary Artery Pressure 20/12 Cardiac Output 6 Cardiac Index 3.2 - Exam GENERAL EXAM: Patient is alert and oriented and doesn't appear to be in any acute distress HEENT: Normocephalic. Normal reaction of pupils, equal size, normal range of extraocular motion. No erythema or exudates in the throat. NECK: No masses, no nuchal rigidity. CHEST: No chest wall deformity. LUNGS: Diminished Breath sounds at bases. HEART: S1 and S2 normal with no audible mumurs or gallops. Regular rhythm, femorals equal on both sides.. ABDOMEN: No hepatosplenomegaly, normal bowel sounds, no guarding or rigidity. SKIN: No rashes CENTRAL NERVOUS SYSTEM: No focal deficits. EXTREMITIES: No cyanosis, clubbing or edema. - Labs CBC & Chem 7: 03/19/17 05:40 03/19/17 05:40 Labs: Abnormal Lab Results - Last 24 Hours (Table) 03/18/17 03/18/17 03/19/17 Range/Units 17:50 20:36 05:40 RBC (4.30-5.90) m/uL Hgb (13.0-17.5) gm/dL Hct (39.0-53.0) % Lymphocytes # (1.0-4.8) k/uL BUN 30 H (9-20) mg/dL Creatinine 1.27 H (0.66-1.25) mg/dL POC Glucose (mg/dL) 129 H 112 H (75-99) mg/dL Calcium 8.2 L (8.4-10.2) mg/dL Total Protein 5.2 L (6.3-8.2) g/dL Albumin 3.2 L (3.5-5.0) g/dL 03/19/17 03/19/17 Range/Units 05:40 07:36 RBC 2.59 L (4.30-5.90) m/uL Hgb 8.0 L (13.0-17.5) gm/dL Hct 23.4 L (39.0-53.0) % Lymphocytes # 0.7 L (1.0-4.8) k/uL BUN (9-20) mg/dL Creatinine (0.66-1.25) mg/dL POC Glucose (mg/dL) 122 H (75-99) mg/dL Calcium (8.4-10.2) mg/dL Total Protein (6.3-8.2) g/dL Albumin (3.5-5.0) g/dL Assessment and Plan (1) Status post coronary artery bypass graft Status: Acute (2) Coronary artery disease Status: Acute (3) Hyperlipidemia Status: Acute (4) Hypertension Status: Acute Plan: Continue current treatment ,transfer to telemetry unit. His activity as tolerated.. Incentive spirometry. Follow him along with you
[2017-03-19 17:07] LABS: Glucose,Whole Blood 96 mg/dL (75-99)
[2017-03-19] MEDS ORDERED: CALCIUM CARBONATE 500 MG CHEWABLE PO PRN (20:10)
[2017-03-19] MEDS ORDERED: METOPROLOL TARTRATE 25 MG TAB PO SCH (21:00)
[2017-03-19 21:01] LABS: Glucose,Whole Blood 119 mg/dL (75-99)
[2017-03-19] MEDS: MUPIROCIN 2% OINT 22 GM TUBE NASAL SCH (21:10)
[2017-03-19] MEDS: SENNOSIDES-DOCUSATE SODIUM 1 EACH TAB PO SCH (21:11)
[2017-03-19] MEDS: METOPROLOL TARTRATE 12.5 MG TAB PO SCH (21:33)
[2017-03-20 02:11] LABS: Glucose,Whole Blood 112 mg/dL (75-99)
[2017-03-20] MEDS: HYDROcodone/APAP 5-325MG 1 EACH TAB PO PRN (03:59)
[2017-03-20 05:59] LABS: Glucose,Whole Blood 115 mg/dL (75-99)
[2017-03-20] MEDS: INSULIN LISPRO (humaLOG) 300 UNIT/3 ML VIAL SQ SCH ×4 (06:18→21:49)
[2017-03-20] MEDS: PANTOPRAZOLE 40 MG TABLET PO SCH (06:31)
[2017-03-20] MEDS: LEVOTHYROXINE 112 MCG TAB PO SCH (06:31)
[2017-03-20 06:46] LABS: CH 30.3; CHCM 32.9; HCT 23.8 % (39.0-53.0); HDW 2.91; MCH 30.9 pg (25.0-35.0); MCHC 33.4 g/dL (31.0-37.0); MCV 92.4 fL (80.0-100.0); Mean Platelet Volume 7.7; RBC 2.57 m/uL (4.30-5.90); RDW 14.9 % (11.5-15.5)
[2017-03-20 07:08] LABS: ALT 30 U/L (21-72); AST 21 U/L (17-59); Alkaline Phosphatase 43 U/L (38-126); Anion Gap 10 mmol/L; Blood Urea Nitrogen 29 mg/dL (9-20); Calcium 8.3 mg/dL (8.4-10.2); Carbon Dioxide 25 mmol/L (22-30); Chloride 103 mmol/L (98-107); Glucose 93 mg/dL (74-99); Non-African American GFR(MDRD) >60 (>60 ml/min/1.73 sqM); Potassium 3.8 mmol/L (3.5-5.1); Sodium 138 mmol/L (137-145); Total Protein 5.2 g/dL (6.3-8.2)
--- NOTE | 2017-03-20 07:53 | XR ---
EXAMINATION TYPE: XR chest 2V DATE OF EXAM: 03/20/2017 COMPARISON: 03/19/2017 HISTORY: 71 year-old male post cardiac surgery TECHNIQUE: Frontal and lateral views FINDINGS: Median sternotomy wires are present with post-CABG clips in the mediastinum. Heart is normal size. Mi ld hyperinflation is similar. Some before meals and bibasilar opacities persist with trace effusions and adjacent patchy posterior basilar opacity on the lateral view. Left-sided chest tube removed in t he interval. No appreciable pneumothorax. IMPRESSION: Trace effusions on the lateral view with adjacent atelectasis and/or consolidation, similar to prior. Left chest tube removed in the interval.
--- NOTE | 2017-03-20 08:40 | P.PN ---
<Gadiel Stephenson L - Last Filed: 03/20/17 08:37> Subjective Principal diagnosis: Severe symptomatic multivessel coronary artery disease, unstable angina, left main disease, Preserved left ventricular function, bilateral carotid stenosis. Hypertension, history of orthostatic hypotension, Hyperlipidemia, history of throat cancer with chemo and radiation, status post modified radical neck dissection. History of tobacco dependence. POD #5 elective off-pump non-aortic clamp quadruple coronary artery bypass grafting using the left internal mammary to the left anterior descending coronary artery. Reverse greater saphenous vein graft connected to the aorta using the PassPort device and connected distally to the right coronary artery before the bifurcation. Reverse greater saphenous vein graft connected to the aorta using the PassPort device and connected distally to the lateral branching of the first diagonal coronary artery, a reverse greater saphenous vein graft connected to the aorta using the PassPort device and connected distally to the second obtuse marginal coronary artery. Bilateral endoscopic harvesting of the greater saphenous vein except for the segment below the left knee. Epi-aortic scanning and graft flow measurements using the [employer][email or web address] system. Postoperative acute blood loss anemia, an expected outcome of surgery, treated with blood transfusion. His currently sitting up to the bedside chair. No acute distress. Denies complaints of pain at this time. He is complaining of some nasal congestion and reports that he uses and nedi pot for nasal irrigations daily. He Does feel that he is coughing more after any eating, which was present at home due to his history of radical neck resection. Objective - Vital Signs Vital signs: Vital Signs Temp 98 F 03/20/17 04:00 Pulse 92 03/20/17 04:00 Resp 16 03/20/17 04:00 BP 152/81 03/20/17 04:00 Pulse Ox 97 03/20/17 04:00 Intake & Output 03/19/17 03/20/17 03/20/17 18:59 06:59 18:59 Intake Total 220 240 Output Total 122 625 Balance 98 -625 240 Weight 79.9 kg 79.3 kg Intake: IV 20 Lactated Ringers 1,000 ml 20 @ 20 mls/hr IV .Q24H [facility] Rx#:[id number] Intake, IV Titration 200 Amount Potassium Chloride 10 meq 200 Lidocaine 2% Inj 10 mg In Sodium Chloride 0.9% 100 ml @ 100 mls/hr IV Q1HR [facility] Rx#:[id number] Oral 240 Output: Chest Tube Drainage 10 Left Pleural 10 Urine 110 625 Stool 2 Other: Voiding Method Indwelling Catheter # Voids 1 ABP, PAP, CO, CI - Last Documented Arterial Blood Pressure 114/49 Pulmonary Artery Pressure 20/12 Cardiac Output 6 Cardiac Index 3.2 - Constitutional General appearance: Present: cooperative, no acute distress - EENT Eyes: Present: normal appearance ENT: Present: hearing grossly normal - Respiratory Details: Essentially clear to his upper lobes, scattered crackles heard to his bilateral lower lobes. Respirations are symmetrical and unlabored. Oxygen saturations on room air are at 94%. He is achieving 1750 mL on his incentive spirometry. He is been encouraged to use his incentive spirometry every hour while awake. - Cardiovascular Details: Regular rate and rhythm. His sternum is stable, he is a heart hugger in place and is demonstrating appropriate use of his heart hugger. He has knee-high ALYSHA hose and sequential compression devices in place to his bilateral lower extremities. No peripheral edema noted. Heart rate: 88 (Remote telemetry showing normal sinus rhythm.) Heart sounds: normal: S1, S2 (Negative for S3, gallop or murmur.) - Gastrointestinal Gastrointestinal Comment(s): Abdomen is soft, nontender, and nondistended. Active bowel sounds heard all 4 abdominal quadrants. He is tolerating his pured chopped, nectar thick liquid diet. - Genitourinary Genitourinary Comment(s): Adequate urine output clear yellow urine. 400 mL output in the last 8 hours. - Integumentary Integumentary Comment(s): Midline sternal incision clean dry and well approximated. Dermabond dressing clean and dry. Left leg EVH incision site clean dry and well approximated, ecchymotic area from his knee to his thigh. Right leg incision site clean dry and well approximated. Old right leg CHANDA drain site with scant serosanguineous drainage. Integumentary: Present: normal, normal turgor - Musculoskeletal Musculoskeletal: Present: gait normal, generalized weakness, strength equal bilaterally - Allied health notes Allied health notes reviewed: nursing Allied Health Notes Comment(s): Speech Therapy notes reviewed. - Labs CBC & Chem 7: 03/20/17 06:03 03/20/17 06:03 Labs: Abnormal Lab Results - Last 24 Hours (Table) 03/19/17 03/20/17 03/20/17 Range/Units 20:59 02:10 05:57 RBC (4.30-5.90) m/uL Hgb (13.0-17.5) gm/dL Hct (39.0-53.0) % BUN (9-20) mg/dL POC Glucose (mg/dL) 119 H 112 H 115 H (75-99) mg/dL Calcium (8.4-10.2) mg/dL Total Protein (6.3-8.2) g/dL Albumin (3.5-5.0) g/dL 03/20/17 03/20/17 Range/Units 06:03 06:03 RBC 2.57 L (4.30-5.90) m/uL Hgb 8.0 L (13.0-17.5) gm/dL Hct 23.8 L (39.0-53.0) % BUN 29 H (9-20) mg/dL POC Glucose (mg/dL) (75-99) mg/dL Calcium 8.3 L (8.4-10.2) mg/dL Total Protein 5.2 L (6.3-8.2) g/dL Albumin 3.2 L (3.5-5.0) g/dL - Imaging and Cardiology Chest x-ray: report reviewed, image reviewed Assessment and Plan (1) Acute blood loss anemia Status: Acute (2) Status post coronary artery bypass graft Status: Acute (3) Carotid artery disease Status: Acute (4) Coronary artery disease Status: Acute (5) History of cancer tonsil Status: Acute (6) History of syncope Status: Acute (7) Hyperlipidemia Status: Acute (8) Hypertension Status: Acute (9) Tobacco dependence in remission Status: Acute Plan: 1. Continue low-dose aspirin, Plavix, heparin subcu, Lipitor, and we will increase his metoprolol tartrate to 50 mg by mouth twice a day. 2. Speech therapy recommendations/swallow eval results noted. He is on a pur ed chopped, nectar thick liquid diet. 3. Encourage incentive spirometry use. Wean O2 as tolerated. 4. Increase activity, ambulate in hallway. Physical therapy to follow. 5. Will monitor daily labs and x-rays. 6. GI/DVT prophylaxis. 7. Diabetic management per primary care services. 8. More recommendations as patient progresses. Discharge planning in place, likely he will be discharged home tomorrow. Time with Patient: Greater than 30 <YaniraYg - Last Filed: 03/20/17 12:12> Objective - Vital Signs Vital signs: Vital Signs Temp 97.1 F L 03/20/17 11:20 Pulse 95 03/20/17 11:20 Resp 18 03/20/17 11:20 BP 66/50 03/20/17 11:20 Pulse Ox 92 L 03/20/17 11:20 Intake & Output 03/19/17 03/20/17 03/20/17 18:59 06:59 18:59 Intake Total 220 240 Output Total 122 625 250 Balance 98 -625 -10 Weight 79.9 kg 79.3 kg Intake: IV 20 Lactated Ringers 1,000 ml 20 @ 20 mls/hr IV .Q24H [facility] Rx#:[id number] Intake, IV Titration 200 Amount Potassium Chloride 10 meq 200 Lidocaine 2% Inj 10 mg In Sodium Chloride 0.9% 100 ml @ 100 mls/hr IV Q1HR [facility] Rx#:[id number] Oral 240 Output: Chest Tube Drainage 10 Left Pleural 10 Urine 110 625 250 Stool 2 Other: Voiding Method Indwelling Catheter Toilet Urinal # Voids 1 1 # Bowel Movements 0 ABP, PAP, CO, CI - Last Documented Arterial Blood Pressure 114/49 Pulmonary Artery Pressure 20/12 Cardiac Output 6 Cardiac Index 3.2 - Labs CBC & Chem 7: 03/20/17 06:03 03/20/17 06:03 Labs: Abnormal Lab Results - Last 24 Hours (Table) 03/19/17 03/20/17 03/20/17 Range/Units 20:59 02:10 05:57 RBC (4.30-5.90) m/uL Hgb (13.0-17.5) gm/dL Hct (39.0-53.0) % BUN (9-20) mg/dL POC Glucose (mg/dL) 119 H 112 H 115 H (75-99) mg/dL Calcium (8.4-10.2) mg/dL Total Protein (6.3-8.2) g/dL Albumin (3.5-5.0) g/dL 03/20/17 03/20/17 03/20/17 Range/Units 06:03 06:03 11:37 RBC 2.57 L (4.30-5.90) m/uL Hgb 8.0 L (13.0-17.5) gm/dL Hct 23.8 L (39.0-53.0) % BUN 29 H (9-20) mg/dL POC Glucose (mg/dL) 104 H (75-99) mg/dL Calcium 8.3 L (8.4-10.2) mg/dL Total Protein 5.2 L (6.3-8.2) g/dL Albumin 3.2 L (3.5-5.0) g/dL Assessment and Plan Plan: The patient was seen and examined. I agree with the above assessment and plan. His Lopressor was increased this morning. He continues to have episodes of labile blood pressure. He is currently on a pured nectar thick liquid diet. He will likely be discharged home within the next 24 hours.
[2017-03-20] MEDS ORDERED: METOPROLOL TARTRATE 50 MG TAB PO SCH (09:00)
[2017-03-20] MEDS: HEPARIN SODIUM,PORCINE 5,000 UNIT/ML 1 ML VIAL SQ SCH ×3 (09:21→23:09)
[2017-03-20] MEDS: ATORVASTATIN 40 MG TAB PO SCH (09:21)
[2017-03-20] MEDS: ASPIRIN 81 MG CHEW PO SCH (09:21)
[2017-03-20] MEDS: CLOPIDOGREL 75 MG TAB PO SCH (09:22)
[2017-03-20] MEDS: MUPIROCIN 2% OINT 22 GM TUBE NASAL SCH ×2 (09:22→21:48)
[2017-03-20] MEDS: OXYMETAZOLINE 0.05% NASL SPRAY 15 ML NASAL SCH ×2 (09:22→21:48)
[2017-03-20 11:39] LABS: Glucose,Whole Blood 104 mg/dL (75-99)
--- NOTE | 2017-03-20 15:11 | P.PN ---
Subjective A 71-year-old male patient who is post coronary artery bypass surgery and I was asked to be involved in the critical care management and vent management. This patient was having increased chest discomfort typical of angina. The patient underwent cardiac catheterization and demonstrated 40% proximal RCA lesion 40-50 % mid RCA lesion, 40% narrowing in the left main, 70% disease in the proximal LAD and 70% diagonal branch, 80% diagonal branch, 90% first of diffuse marginal branch and 5060% in the circumflex. Our study was done and the patient showed to have severe disease involving the right internal carotid artery disease and intermediate disease involving the left common carotid and left internal carotid artery. He is known to have hypertension. Hyperlipidemia. The patient underwent off-pump coronary artery bypass surgery with CASTELLANOS to LAD, saphenous vein graft to diagonal, obtuse marginal and RCA. Currently intubated on a mechanical ventilator and sedated with Diprivan. His assist-control mode of ventilation at the rate of 12, tidal volume 500, FiO2 of 40% and a PEEP of 5. The patient immediate postoperative blood This showed a pH of 7.35 with a pCO2 of 42 and pO2 of 513 and based on that the FiO2 was dropped from 100% on to 40%. His saturation remains around 97%. Chest x-ray shows adequate expansion of both lungs without evidence of any pneumothorax. ET tube is in a good location. The patient has 2 mediastinal chest tubes and 1 pleural chest tube all of them were actively draining since his surgery and his drainage has slowed down over the past few hours. The patient required to be given a total of 2 units of packed RBC intraoperatively, 4 units of fresh frozen plasma and 5 platelet concentrates. The hemoglobin at this point is on 7.0 and the patient is receiving another unit of packed RBC. PA pressures around 30/12 and the cardiac index is 2.7. The patient has received 2, 5% albumin's drapes. Currently the patient is on clevidipine for blood pressure control and insulin drip. Producing adequate amount of urine output. Creatinine is at 1.1. Hemodynamically stable. Ionized calcium was low and the patient was given 2 g of calcium gluconate. On 03/16/2017 the patient is extubated. The patient got extubated yesterday without any major difficulties and currently is on room air. Oximetry well. No desaturations. Using incentive spirometer. Sternum stable clean and intact. The mediastinal and the pleural chest tubes are still in place and output has dropped considerably. Hemoglobin is stable and the patient had received a total of 3 units of packed RBCs. The [place] have been removed and the cordis still in place. Chest x-ray from today shows postsurgical changes without evidence of any pneumothorax and the lungs are well expanded bilaterally. The patient is on no pressors. The patient on insulin drip at 2.5 units an hour which will be switched to subcu coverage. He had some clear liquid diet earlier this morning. No bowel movements yet. Sitting up on a chair. No cardiac arrhythmias of been noted. Afebrile. No other significant events overnight. Urine output is adequate more than 25 mL an hour. On 03/17/2017 the patient remains extubated. Yesterday afternoon the patient started having some increased shortness of breath. He became progressively more hypoxemic and had to placed on high flow oxygen 6 L/m nasal cannula. Chest x-ray from today showing the [place] pleural effusion on the right. Chest tubes are all in good location. Noted the patient also had developed a drop in hemoglobin down to 6.7. He was given a unit of packed RBC. He also dropped his pressure and he had to be placed on norepinephrine infusion for a few hours and currently his been off for more than 6 hours. He is producing adequate amount of urine output in the order of 20-25 an hour. Chest tubes both mediastinal and pleural are still producing serosanguineous somewhat bloody liquidy material at the rate of 20-30 mL an hour basis. He is weaned down to 4 L/m nasal cannula. Is using incentive spirometer. No nausea or vomiting. No chest pain. He has no specific complaints otherwise for now. Creatinine is at 1.4 which is close to his baseline. On 03/18/2017 the patient remains extubated. The mediastinal chest tubes were moved today and the patient only has a left pleural chest tube. Sternum stable clean and intact. Hemodynamically stable. At 2 L/m nasal cannula and his saturations around 94-95%. Adequate urine output. Creatinine is stable at 1.3. Remains stable at 8.3. S x-ray from today is showing stable post thoracotomy findings with a left-sided chest tube and the rest of the hilar and the structures are all within normal limits. There may be a small right-sided pleural effusion. On 03/19/2017 the patient is doing well. The left-sided pleural chest tube was removed. Chest x-ray shows adequate expansion of both lungs. No respiratory difficulties. No chest pain. Hemodynamically stable. Sternum stable clean and intact. No other significant events overnight. Cardiac rhythm remains sinus. The patient is seen again today 03/20/2017 on the selective care unit. He is currently awake and alert in no acute distress. He did have an episode of hypotension following his morning medications. These are being adjusted by cardiology. He denies any worsening shortness of breath, cough or congestion. He is doing well on his incentive spirometer. His chest x-ray reveals trace effusions with adjacent atelectasis. Chest tubes and been removed. No evidence of pneumothorax. He is maintaining good O2 saturations in the mid 90s on room air. He is afebrile. Objective - Vital Signs Vital signs: Vital Signs Temp 97.1 F L 03/20/17 11:20 Pulse 95 03/20/17 11:20 Resp 18 03/20/17 11:20 BP 66/50 03/20/17 11:20 Pulse Ox 92 L 03/20/17 11:20 Intake & Output 03/19/17 03/20/17 03/20/17 18:59 06:59 18:59 Intake Total 220 840 Output Total 122 625 500 Balance 98 -625 340 Weight 79.9 kg 79.3 kg Intake: IV 20 Lactated Ringers 1,000 ml 20 @ 20 mls/hr IV .Q24H LEIDA Rx#:[id number] Intake, IV Titration 200 Amount Potassium Chloride 10 meq 200 Lidocaine 2% Inj 10 mg In Sodium Chloride 0.9% 100 ml @ 100 mls/hr IV Q1HR LEIDA Rx#:[id number] Oral 840 Output: Chest Tube Drainage 10 Left Pleural 10 Urine 110 625 500 Stool 2 Other: Voiding Method Indwelling Catheter Toilet Urinal # Voids 1 1 # Bowel Movements 1 ABP, PAP, CO, CI - Last Documented Arterial Blood Pressure 114/49 Pulmonary Artery Pressure 20/12 Cardiac Output 6 Cardiac Index 3.2 - Exam Head exam was generally normal. There was no scleral icterus or corneal arcus. Mucous membranes were moist. Neck is supple and the patient has a right IJ Cordis in place. Mucous membranes are dry. Distal with or neck masses. Lungs sounds are diminished bilaterally. Sternum stable clean and intact. Heart sounds are regular and there is a pericardial rub. Positive S1-S2. No significant murmurs appreciated.Abdominal exam revealed normal bowel sounds. The abdomen was soft, non-tender, and without masses, organomegaly, or appreciable enlargement of the abdominal aorta.Examination of the extremities revealed easily palpable radial, femoral and pedal pulses. There was no cyanosis , clubbing or edema. - Labs CBC & Chem 7: 03/20/17 06:03 03/20/17 06:03 Labs: Abnormal Lab Results - Last 24 Hours (Table) 03/19/17 03/20/17 03/20/17 Range/Units 20:59 02:10 05:57 RBC (4.30-5.90) m/uL Hgb (13.0-17.5) gm/dL Hct (39.0-53.0) % BUN (9-20) mg/dL POC Glucose (mg/dL) 119 H 112 H 115 H (75-99) mg/dL Calcium (8.4-10.2) mg/dL Total Protein (6.3-8.2) g/dL Albumin (3.5-5.0) g/dL 03/20/17 03/20/17 03/20/17 Range/Units 06:03 06:03 11:37 RBC 2.57 L (4.30-5.90) m/uL Hgb 8.0 L (13.0-17.5) gm/dL Hct 23.8 L (39.0-53.0) % BUN 29 H (9-20) mg/dL POC Glucose (mg/dL) 104 H (75-99) mg/dL Calcium 8.3 L (8.4-10.2) mg/dL Total Protein 5.2 L (6.3-8.2) g/dL Albumin 3.2 L (3.5-5.0) g/dL Assessment and Plan Plan: Assessment 1 multivessel coronary artery disease and the patient is status post four- vessel coronary artery bypass surgery including CASTELLANOS to LAD. Patient is postop day #5. 2 post surgical right-sided pleural effusion , post surgical, stable for now. The patient is currently on 2 L of oxygen nasal cannula. 3 anemia , stable hemoglobin for now at 8.0 postoperative received a total of 4 units of packed RBCs. 4 chronic renal failure, creatinine is normal at this point and the patient is producing adequate amount of urine output. Creatinine is back to its baseline is around 1.3. 5 carotid artery disease, as discussed earlier 6 hypertension 8 hyperlipidemia 9. Hearing impairment 10 throat cancer back in 2005, post chemoradiation therapy Plan: The patient was seen and evaluated by Dr. Castaneda. His chest x-ray and labs were reviewed. The patient is stable from the pulmonary standpoint. He is having issues with labile blood pressure and his medications are being adjusted accordingly. We will continue to increase his activity as tolerated. He is again encouraged regarding the increased use of the incentive spirometer and cough and deep breathing exercises. We will continue to follow.
--- NOTE | 2017-03-20 15:41 | P.PN ---
Subjective A 71-year-old male patient who is post coronary artery bypass surgery and I was asked to be involved in the critical care management and vent management. This patient was having increased chest discomfort typical of angina. The patient underwent cardiac catheterization and demonstrated 40% proximal RCA lesion 40-50 % mid RCA lesion, 40% narrowing in the left main, 70% disease in the proximal LAD and 70% diagonal branch, 80% diagonal branch, 90% first of diffuse marginal branch and 5060% in the circumflex. Our study was done and the patient showed to have severe disease involving the right internal carotid artery disease and intermediate disease involving the left common carotid and left internal carotid artery. He is known to have hypertension. Hyperlipidemia. 03/20/2017. Patient was seen and examined on the telemetry unit. Awake and alert in no acute distress. blood pressure remains in the low 90s to high 80s.patient denies any shortness of breath, no chest discomfort. Chest x-ray reveals trace effusions with adjacent atelectasis. Objective - Vital Signs Vital signs: Vital Signs Temp 97.1 F L 03/20/17 11:20 Pulse 95 03/20/17 11:20 Resp 18 03/20/17 11:20 BP 66/50 03/20/17 11:20 Pulse Ox 92 L 03/20/17 11:20 Intake & Output 03/19/17 03/20/17 03/20/17 18:59 06:59 18:59 Intake Total 220 840 Output Total 122 625 500 Balance 98 -625 340 Weight 79.9 kg 79.3 kg Intake: IV 20 Lactated Ringers 1,000 ml 20 @ 20 mls/hr IV .Q24H LEIDA Rx#:[id number] Intake, IV Titration 200 Amount Potassium Chloride 10 meq 200 Lidocaine 2% Inj 10 mg In Sodium Chloride 0.9% 100 ml @ 100 mls/hr IV Q1HR LEIDA Rx#:[id number] Oral 840 Output: Chest Tube Drainage 10 Left Pleural 10 Urine 110 625 500 Stool 2 Other: Voiding Method Indwelling Catheter Toilet Urinal # Voids 1 1 # Bowel Movements 1 ABP, PAP, CO, CI - Last Documented Arterial Blood Pressure 114/49 Pulmonary Artery Pressure 20/12 Cardiac Output 6 Cardiac Index 3.2 - Exam PHYSICAL EXAMINATION: HEENT: [Head is atraumatic, normocephalic. Pupils equal, round. Neck is supple. There is no elevated jugular venous pressure.] HEART EXAMINATION: [Heart S1, S2 pericardial rub is heard.] CHEST EXAMINATION:lungs are diminished bilaterally with fine crackles to the bases. ABDOMEN: [ Soft, nontender. Bowel sounds are heard. No organomegaly noted]. EXTREMITIES:[ 2+ peripheral pulses with no evidence of peripheral edema and no calf tenderness noted]. NEUROLOGIC [patient is awake, alert and oriented -3.] . - Labs CBC & Chem 7: 03/20/17 06:03 03/20/17 06:03 Labs: Abnormal Lab Results - Last 24 Hours (Table) 03/19/17 03/20/17 03/20/17 Range/Units 20:59 02:10 05:57 RBC (4.30-5.90) m/uL Hgb (13.0-17.5) gm/dL Hct (39.0-53.0) % BUN (9-20) mg/dL POC Glucose (mg/dL) 119 H 112 H 115 H (75-99) mg/dL Calcium (8.4-10.2) mg/dL Total Protein (6.3-8.2) g/dL Albumin (3.5-5.0) g/dL 03/20/17 03/20/17 03/20/17 Range/Units 06:03 06:03 11:37 RBC 2.57 L (4.30-5.90) m/uL Hgb 8.0 L (13.0-17.5) gm/dL Hct 23.8 L (39.0-53.0) % BUN 29 H (9-20) mg/dL POC Glucose (mg/dL) 104 H (75-99) mg/dL Calcium 8.3 L (8.4-10.2) mg/dL Total Protein 5.2 L (6.3-8.2) g/dL Albumin 3.2 L (3.5-5.0) g/dL Assessment and Plan (1) Status post coronary artery bypass graft Status: Acute (2) Coronary artery disease Status: Acute (3) Hyperlipidemia Status: Acute (4) Hypertension Status: Acute (5) Tobacco dependence in remission Status: Acute Plan: from cardiology's perspective, we'll recommend to continue the patient on his current medications. He is currently not on an DAVID inhibitor because of low blood pressure. DNP note has been reviewed, I agree with a documented findings and plan of care. Patient was seen and examined.
[2017-03-20 16:43] LABS: Glucose,Whole Blood 104 mg/dL (75-99)
[2017-03-20] MEDS: METOPROLOL TARTRATE 25 MG TAB PO SCH ×2 (17:04→23:07)
--- NOTE | 2017-03-20 17:07 | P.PN ---
Subjective 71 yr old that is s/p CABG is seen today. Pt is doing well apparently pt was noted to have orthostatics that are positive has been on losartan and midodrine in the past Bp always has ranged within resonable normal limits Pt was symptomatic this am when he was attempting to shower. Objective - Vital Signs Vital signs: Vital Signs Temp 97.1 F L 03/20/17 11:20 Pulse 95 03/20/17 11:20 Resp 18 03/20/17 11:20 BP 66/50 03/20/17 11:20 Pulse Ox 92 L 03/20/17 11:20 Intake & Output 03/19/17 03/20/17 03/20/17 18:59 06:59 18:59 Intake Total 220 840 Output Total 122 625 500 Balance 98 -625 340 Weight 79.9 kg 79.3 kg Intake: IV 20 Lactated Ringers 1,000 ml 20 @ 20 mls/hr IV .Q24H LEIDA Rx#:[id number] Intake, IV Titration 200 Amount Potassium Chloride 10 meq 200 Lidocaine 2% Inj 10 mg In Sodium Chloride 0.9% 100 ml @ 100 mls/hr IV Q1HR LEIDA Rx#:[id number] Oral 840 Output: Chest Tube Drainage 10 Left Pleural 10 Urine 110 625 500 Stool 2 Other: Voiding Method Indwelling Catheter Toilet Urinal # Voids 1 1 # Bowel Movements 1 ABP, PAP, CO, CI - Last Documented Arterial Blood Pressure 114/49 Pulmonary Artery Pressure 20/12 Cardiac Output 6 Cardiac Index 3.2 - Constitutional General appearance: Present: no acute distress - Respiratory Respiratory: bilateral: CTA, negative: dullness, rales - Cardiovascular Rhythm: regular - Gastrointestinal General gastrointestinal: Present: soft. Absent: organomegaly - Integumentary Integumentary: Present: normal - Neurologic Neurologic: Present: CNII-XII intact. Absent: focal deficits - Labs CBC & Chem 7: 03/20/17 06:03 03/20/17 06:03 Labs: Abnormal Lab Results - Last 24 Hours (Table) 03/19/17 03/20/17 03/20/17 Range/Units 20:59 02:10 05:57 RBC (4.30-5.90) m/uL Hgb (13.0-17.5) gm/dL Hct (39.0-53.0) % BUN (9-20) mg/dL POC Glucose (mg/dL) 119 H 112 H 115 H (75-99) mg/dL Calcium (8.4-10.2) mg/dL Total Protein (6.3-8.2) g/dL Albumin (3.5-5.0) g/dL 03/20/17 03/20/17 03/20/17 Range/Units 06:03 06:03 11:37 RBC 2.57 L (4.30-5.90) m/uL Hgb 8.0 L (13.0-17.5) gm/dL Hct 23.8 L (39.0-53.0) % BUN 29 H (9-20) mg/dL POC Glucose (mg/dL) 104 H (75-99) mg/dL Calcium 8.3 L (8.4-10.2) mg/dL Total Protein 5.2 L (6.3-8.2) g/dL Albumin 3.2 L (3.5-5.0) g/dL 03/20/17 Range/Units 16:42 RBC (4.30-5.90) m/uL Hgb (13.0-17.5) gm/dL Hct (39.0-53.0) % BUN (9-20) mg/dL POC Glucose (mg/dL) 104 H (75-99) mg/dL Calcium (8.4-10.2) mg/dL Total Protein (6.3-8.2) g/dL Albumin (3.5-5.0) g/dL Assessment and Plan Plan: CAD s/p CABg Orthostatic hypotension HTN h/o H/o of tobacco use Dyslipidemia Plan Cortisol level is wnl. this may be from dysautonomia would recommended restarting midodrine 5mg bid HOld cozaar B lizz to prevent postop a fib Compression socks with 20PSI If this doesnot improve symptoms fall precautions are advised Discussed with the pt and his
[2017-03-20] MEDS: MIDODRINE 5 MG TAB PO SCH (18:12)
[2017-03-20 21:12] LABS: Glucose,Whole Blood 96 mg/dL (75-99)
[2017-03-20 21:47] VITALS: RESP 16
[2017-03-20] MEDS: SENNOSIDES-DOCUSATE SODIUM 1 EACH TAB PO SCH (21:48)
[2017-03-21 02:04] LABS: Glucose,Whole Blood 97 mg/dL (75-99)
[2017-03-21 06:35] LABS: CH 30.2; CHCM 33.5; HCT 23.2 % (39.0-53.0); HDW 3.14; HGB 7.6 gm/dL (13.0-17.5); MCH 29.8 pg (25.0-35.0); MCHC 32.9 g/dL (31.0-37.0); MCV 90.6 fL (80.0-100.0); Mean Platelet Volume 7.2; RBC 2.56 m/uL (4.30-5.90); RDW 14.8 % (11.5-15.5)
[2017-03-21] MEDS: MIDODRINE 5 MG TAB PO SCH ×3 (06:37→14:17)
[2017-03-21 06:40] LABS: ALT 28 U/L (21-72); AST 20 U/L (17-59); Alkaline Phosphatase 51 U/L (38-126); Anion Gap 10 mmol/L; Blood Urea Nitrogen 29 mg/dL (9-20); Calcium 8.9 mg/dL (8.4-10.2); Carbon Dioxide 26 mmol/L (22-30); Chloride 103 mmol/L (98-107); Glucose 94 mg/dL (74-99); Non-African American GFR(MDRD) 60 (>60 ml/min/1.73 sqM); Sodium 139 mmol/L (137-145); Total Protein 5.4 g/dL (6.3-8.2)
[2017-03-21] MEDS: PANTOPRAZOLE 40 MG TABLET PO SCH (07:08)
[2017-03-21] MEDS: LEVOTHYROXINE 112 MCG TAB PO SCH (07:08)
[2017-03-21] MEDS: INSULIN LISPRO (humaLOG) 300 UNIT/3 ML VIAL SQ SCH ×2 (07:26→11:49)
[2017-03-21 07:27] LABS: Glucose,Whole Blood 110 mg/dL (75-99)
--- NOTE | 2017-03-21 07:33 | XR ---
EXAMINATION TYPE: XR chest 2V DATE OF EXAM: 03/21/2017 HISTORY: post cardiac surgery. REFERENCE: Previous study dated 03/20/2017. FINDINGS: There has been a midline sternotomy. There is a worsening left-sided effusion. There is ate lectatic change present at the left lung base. Heart size is upper limits of normal. IMPRESSION: CONTINUING POSTOPERATIVE CHANGE.
[2017-03-21] MEDS: METOPROLOL TARTRATE 25 MG TAB PO SCH ×2 (07:37→14:22)
[2017-03-21] MEDS: ASPIRIN 81 MG CHEW PO SCH (07:38)
[2017-03-21] MEDS: HEPARIN SODIUM,PORCINE 5,000 UNIT/ML 1 ML VIAL SQ SCH (07:38)
[2017-03-21] MEDS: MUPIROCIN 2% OINT 22 GM TUBE NASAL SCH (07:39)
[2017-03-21] MEDS: CLOPIDOGREL 75 MG TAB PO SCH (07:39)
[2017-03-21] MEDS: ATORVASTATIN 40 MG TAB PO SCH (07:39)
[2017-03-21] MEDS: OXYMETAZOLINE 0.05% NASL SPRAY 15 ML NASAL SCH (07:40)
[2017-03-21 11:36] VITALS: BP 138/78; PULSE 88; TEMP 98.8
[2017-03-21 11:38] LABS: Glucose,Whole Blood 92 mg/dL (75-99)
--- NOTE | 2017-03-21 11:49 | P.PN ---
Progress Note - Text 5 meter walk test done preop: #1 2.5 sec, #2 2.48, #3 2.29 sec
--- NOTE | 2017-03-21 13:04 | P.PN ---
Subjective Principal diagnosis: Severe symptomatic multivessel coronary artery disease, unstable angina, left main disease, Preserved left ventricular function, bilateral carotid stenosis. Hypertension, history of orthostatic hypotension, Hyperlipidemia, history of throat cancer with chemo and radiation, status post modified radical neck dissection. History of tobacco dependence. POD #6 elective off-pump non-aortic clamp quadruple coronary artery bypass grafting using the left internal mammary to the left anterior descending coronary artery. Reverse greater saphenous vein graft connected to the aorta using the PassPort device and connected distally to the right coronary artery before the bifurcation. Reverse greater saphenous vein graft connected to the aorta using the PassPort device and connected distally to the lateral branching of the first diagonal coronary artery, a reverse greater saphenous vein graft connected to the aorta using the PassPort device and connected distally to the second obtuse marginal coronary artery. Bilateral endoscopic harvesting of the greater saphenous vein except for the segment below the left knee. Epi-aortic scanning and graft flow measurements using the Medistim system. Postoperative acute blood loss anemia, an expected outcome of surgery, treated with blood transfusion. His currently sitting up to the bedside chair. No acute distress. Denies complaints of pain at this time. He reports that he walked in the hallway at least 4 times yesterday. No further complaints of lightheadedness. He is tolerating his oral diet although states that he does not have an appetite this morning. Objective - Vital Signs Vital signs: Vital Signs Temp 97.6 F 03/21/17 07:33 Pulse 95 03/21/17 07:33 Resp 16 03/21/17 07:33 BP 123/65 03/21/17 07:33 Pulse Ox 96 03/21/17 07:33 Intake & Output 03/20/17 03/21/17 03/21/17 18:59 06:59 18:59 Intake Total 1320 Output Total 500 Balance 820 Weight 78.8 kg Intake: Oral 1320 Output: Urine 500 Other: Voiding Method Toilet Urinal # Voids 1 1 # Bowel Movements 1 ABP, PAP, CO, CI - Last Documented Arterial Blood Pressure 114/49 Pulmonary Artery Pressure 20/12 Cardiac Output 6 Cardiac Index 3.2 - Constitutional General appearance: Present: cooperative, no acute distress - EENT Eyes: Present: normal appearance ENT: Present: hard of hearing (Bilateral hearing aids in place.) - Respiratory Details: Lungs are essentially clear throughout, diminished to his bilateral bases. Respirations are symmetrical and unlabored. Oxygen saturations are 95% on room air. He is achieving 1500 mL to 1750 mL on his incentive spirometry. He is being encouraged to use his incentive spirometry every hour while awake. - Cardiovascular Details: Regular rhythm and rate, S1 and S2, negative for S3, gallop or murmur. His sternum is stable, his heart hugger in place and demonstrating appropriate use of his heart hugger. His heart rate is 97 BPM, remote telemetry showing normal sinus rhythm. Knee-high ALYSHA hose and sequential compression devices in place to his bilateral lower extremities. No peripheral edema. - Gastrointestinal Gastrointestinal Comment(s): Abdomen is soft, nontender, and nondistended. His active bowel sounds in all 4 abdominal quadrants. Positive bowel movement yesterday 03/20/2017. He is tolerating his pured chopped, nectar thick liquids diet. - Genitourinary Genitourinary Comment(s): Adequate urine output, clear yellow urine. - Integumentary Integumentary Comment(s): Midline sternal incision clean dry and well approximated. No drainage noted. Dry gauze dressing clean dry and intact. Left leg EVH incision site clean dry and well approximated, ecchymotic area from his knee to his thigh. Right leg EVH incision site clean dry and well approximated. No drainage noted. Right leg old CHANDA drain site with scant serous drainage. Integumentary: Present: normal turgor - Musculoskeletal Musculoskeletal: Present: gait normal, generalized weakness, strength equal bilaterally - Psychiatric Psychiatric: Present: A&O x's 3, appropriate affect, intact judgment & insight - Allied health notes Allied health notes reviewed: nursing - Labs CBC & Chem 7: 03/21/17 06:13 03/21/17 06:13 Labs: Abnormal Lab Results - Last 24 Hours (Table) 03/20/17 03/20/17 03/21/17 Range/Units 11:37 16:42 06:13 RBC 2.56 L (4.30-5.90) m/uL Hgb 7.6 L (13.0-17.5) gm/dL Hct 23.2 L (39.0-53.0) % BUN (9-20) mg/dL POC Glucose (mg/dL) 104 H 104 H (75-99) mg/dL Total Protein (6.3-8.2) g/dL Albumin (3.5-5.0) g/dL 03/21/17 03/21/17 Range/Units 06:13 07:25 RBC (4.30-5.90) m/uL Hgb (13.0-17.5) gm/dL Hct (39.0-53.0) % BUN 29 H (9-20) mg/dL POC Glucose (mg/dL) 110 H (75-99) mg/dL Total Protein 5.4 L (6.3-8.2) g/dL Albumin 3.4 L (3.5-5.0) g/dL - Imaging and Cardiology Chest x-ray: report reviewed, image reviewed Assessment and Plan (1) Acute blood loss anemia Status: Acute (2) Status post coronary artery bypass graft Status: Acute (3) Carotid artery disease Status: Acute (4) Coronary artery disease Status: Acute (5) History of cancer tonsil Status: Acute (6) History of syncope Status: Acute (7) Hyperlipidemia Status: Acute (8) Hypertension Status: Acute (9) Tobacco dependence in remission Status: Acute Plan: 1. Continue low-dose aspirin, Plavix, heparin subcu, Lipitor, and metoprolol tartrate 25 mg by mouth 3 times a day. 2. Speech therapy recommendations/swallow eval results noted. He is on a pur ed chopped, nectar thick liquid diet. 3. Encourage incentive spirometry use. Wean O2 as tolerated. 4. Increase activity, ambulate in hallway. Physical therapy to follow. 5. Will monitor daily labs and x-rays. 6. GI/DVT prophylaxis. 7. Diabetic management per primary care services. 8. Lasix 40 mg by mouth daily 4 days, potassium chloride 20 mEq by mouth daily 4 days. 9. More recommendations as patient progresses. Discharge home today. Time with Patient: Greater than 30
--- NOTE | 2017-03-21 13:12 | P.DS ---
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 Do you want consulting provider notified?: Yes Primary care physician: Stated None - Discharge Diagnosis(es) (1) Acute blood loss anemia Current Visit: Yes Status: Acute (2) Status post coronary artery bypass graft Current Visit: Yes Status: Acute (3) Carotid artery disease Current Visit: No Status: Acute (4) Coronary artery disease Current Visit: No Status: Acute (5) History of cancer tonsil Current Visit: No Status: Acute (6) History of syncope Current Visit: No Status: Acute (7) Hyperlipidemia Current Visit: No Status: Acute (8) Hypertension Current Visit: No Status: Acute (9) Tobacco dependence in remission Current Visit: No Status: Acute Hospital Course: FINAL DIAGNOSIS: 1. Triple-vessel coronary artery disease 2. Unstable angina 3. Left main disease 4. Right internal carotid artery stenosis 5. Hypertension 6. Hyperlipidemia 7. Preserved left ventricular function 8. 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 History of cerebrovascular accident without residual deficits 10. Acute blood loss anemia postsurgical, expected outcome of surgery 11. Chronic kidney disease 12. Preoperative near-syncope, autonomic dysfunction with orthostatic hypotension 13. Hearing impairment 14. History of mild dysphagia PRINCIPAL PROCEDURE: 1. Elective off pump non-aortic clamp quadruple coronary artery bypass grafting using the left internal mammary artery to left anterior ascending coronary artery, a reverse greater saphenous vein graft connected to the aorta using the PAS-port device and connected distally to the right coronary artery before the bifurcation, a reverse greater saphenous vein graft connected to the aorta using the PAS-port device and connected distally to the lateral branching of the first diagonal coronary artery, a reverse greater saphenous vein graft connected to the aorta using the PAS-port device and connected distally to the second obtuse marginal coronary artery. 2. Bilateral endoscopic harvesting of the greater saphenous veins except for the segment below the left knee. 3. Epi-aortic scanning and graft flow measurements using the medistim system. HISTORY OF PRESENT ILLNESS: This is a 71-year-old gentleman who is followed by Jennifer RUIZ out of [facility]. The patient has a past medical history of hypertension, hyperlipidemia, chronic kidney disease, near-syncope, autonomic dysfunction with orthostatic hypotension, right internal carotid artery stenosis, history of cerebrovascular accident, and history of tonsillar cancer status post chemotherapy, radiation, and radical neck dissection. Initially, the patient was doing yard work and developed chest pressure which was relieved with rest. He was suggested to follow-up with his snipper Dr. LUIGI Avila, by his daughter who is a snipper in [place]. He was subsequently evaluated by Dr. LUIGI Avila and was noted to have bilateral carotid bruits on examination and was scheduled for an arch study and left heart catheterization. On 02/12/2017 the patient underwent a 2-D echocardiogram, left heart catheterization, and a bilateral carotid angiogram with aortic arch angiogram. The 2-D echocardiogram showed trace tricuspid regurgitation, and his left ventricular systolic function to be normal with an ejection fraction between 60 and 65%. The cardiac catheterization results demonstrated a 50% stenosis to his left main coronary artery, a 50% stenosis to his mid right coronary artery, a 60% stenosis to a circumflex coronary artery, and a 75% stenosis to his proximal left anterior descending coronary artery. The patient' s selective arch and carotid angiogram demonstrated severe disease involving the right internal carotid artery with a stenosis in the range of 70-80% to his right internal carotid artery, and a left internal carotid artery stenosis in the range of 50%. Due to the patient's symptoms and above-mentioned study results Dr. LUIGI Avila consult. Dr. Dela Cruz from cardiothoracic surgery to evaluate the patient. Dr. Dela Cruz reviewed the above-mentioned results with the patient, the patient's and the patient's daughter who is a snipper and an elective coronary artery bypass grafting surgery was recommended. HOSPITAL COURSE: The patient was admitted to the hospital and after obtaining consent was taken to the operating room where Dr. Delmi Dela Cruz performed an elective off pump non-aortic clamp quadruple coronary artery bypass grafting surgery using the left internal mammary artery to the left anterior descending coronary artery, a reverse greater saphenous vein graft connected to the aorta using the PAS-port device and connected distally to the right coronary artery before the bifurcation, a reverse greater saphenous vein graft connected to the aorta using the PAS-port device and connected distally to the lateral branching of the first diagonal coronary artery, a reverse greater saphenous vein graft connected to the aorta using the PAS-port device and connected distally to the second obtuse marginal coronary artery. Bilateral endoscopic harvesting of the greater saphenous veins except for the segment below the left knee. He also underwent epi-aortic scanning and graft flow measurements using the medistim system. He was then transferred to the cardiovascular intensive care unit where he was recovered, monitored hemodynamically, and where he progressed to cardiac rehabilitation phase 1. He was subsequently extubated, all his invasive lines and hemodynamic drips were discontinued and he was transferred to [address] [place] [address] for further monitoring and rehabilitation. He has been ambulating the hansen without difficulty, his discharge instructions have been reviewed with him and his . He will be discharged home today with [facility] to follow. COMPLICATIONS: There were no postoperative complications. CONSULTATIONS: 1. Dr. LUIGI Avila for cardiology management 2. Dr. Castaneda for pulmonary and ventilator management 3. Dr. Minor for medical management DISCHARGE INSTRUCTIONS: 1. No driving for 4 weeks, or until physician gives their ok. 2. The patient should sleep in their own bed, no medical bed needed. 3. Stairs are not an issue. If the bedroom is upstairs, it is advised that the patient go up at night and down in the morning for the first week. Go slowly, using handrail and take 1 step at a time. 4. ALYSHA hose are to be worn for 30 days or until physician discontinues. 5. Heart hugger is to be worn 100% of the time until physician discontinues.( except when showering) 6. No lifting, pushing, or pulling more than 10 pounds for 12 weeks. The physician will advise of any restriction changes. 7. The patient is expected to continue the prescribed walking program. 8. Continue pain control per as needed orders. 9. Continue with incentive spirometry and splinting/heart hugger until otherwise directed by the physician. 10. Must shower daily using liquid antibacterial soap and a separate white washcloth for each individual incision. 11. Routine sternal incision care, no ointments, lotions or powders on the incisions. 12. Please notify surgeon/nurse practitioner for temperature greater than 101F or purulent drainage from incisions 13. Prescriptions for first 30 days given per cardiac surgery service. After 30 days, all prescription refills obtained through cardiology/primary care physician. 14. Speech therapy to follow patient at home due to his preoperative and postoperative mild dysphasia. HOME HEALTH SERVICES TO PROVIDE: RN SKILLED HOME CARE SERVICES FOR POST-OP SURGICAL PATIENTS WITH THE FOLLOWING: Coronary Artery Bypass Surgery (CABG), Mitral Valve Replacement/ Repair ( MVR), Aortic Valve Replacement/Repair (AVR) RN TO CONTINUE EDUCATION FROM ``ROAD TO A makerSQR HEART PATIENT EDUCATION MANUAL" (GIVEN TO PATIENT IN THE HOSPITAL) MEDICATION RECONCILIATION WITH EDUCATION NEEDED ON FIRST HOME VISIT EMPHASIZE IMPORTANCE OF WEARING BREAST SUPPORT/HEART HUGGER ENCOURAGE USE OF INCENTIVE SPIROMETER 10 X EVERY HOUR WHILE AWAKE ENCOURAGE UTILIZATION OF LOWER EXTREMITY COMPRESSION STOCKINGS/ALYSHA HOSE and ELEVATE LEGS ABOVE LEVEL OF HEART WHILE AT REST. ENCOURAGE AMBULATION 3-5x/day INCREASING TOLERATES, WHILE AVOID EXTREMES IN TEMPERATURE FREQUENCY: RN TO OPEN THE PATIENT WITHIN 24 HOURS OF DISCHARGE FROM THE HOSPITAL WITH TELEHEALTH INSTALLED AT [facility] [place], RN TO VISIT 2-3 X A WEEK FOR 4 WEEKS ESTABLISHED BY PATIENT NEEDS. REMOVAL OF SUTURES: NURSING SERVICES TO REMOVE SUTURES TWO WEEKS POST SURGICAL DATE , 03/29/2017. If any questions regarding suture removal please call the office at [phone]. LABORATORY: CBC, CMP TO BE DRAWN ON THE THIRD DAY HOME, 03/24/2017 (RAN STAT) FAX RESULTS TO [phone]. TELEHEALTH PARAMETERS: WEIGHT: NOTIFY MD OF WEIGHT GAIN OF 2 LBS IN 24 HOURS OR 5 LBS IN ONE WEEK HR: NOTIFY MD OF HR <55 BPM OR HR>100 BPM BP: NOTIFY MD IF BP <90/55 OR BP>140/100 O2 SAT: NOTIFY MD IF PO2<93% ON ROOM AIR SEND TELEHEALTH REPORT TO CABLE FERRY OPERATOR AND CARDIOVASCULAR SURGEON THE FIRST WEEK OF CARE AND THEN BI-WEEKLY. PLEASE ADDITIONALLY COMMUNICATE ANY ABNORMALS AND NEW FINDINGS TO THE SURGEONS OFFICE. Plan - Discharge Summary New Discharge Prescriptions: New HYDROcodone/APAP 5-325MG [[place] 5-325] 1 - 2 each PO Q6HR PRN #120 tab PRN Reason: Severe Pain No Action Fluticasone Nasal [place] [Flonase Nasal [place]] 1 spray EA NOSTRIL DAILY Midodrine HCl [ProAmatine] 5 mg PO TID Levothyroxine Sodium [Synthroid] 112 mcg PO DAILY amLODIPine BESYLATE [Norvasc] 5 mg PO DAILY PRN PRN Reason: only if BP>130 systolic Losartan [Cozaar] 50 mg PO DAILY Nitroglycerin Sl Tabs [Nitrostat] 0.4 mg SUBLINGUAL Q5M PRN #30 tab PRN Reason: chest pain Butalb/Acetaminophen/Caffeine [Fioricet 50-325-40] 1 - 2 tab PO Q4H PRN PRN Reason: Migraine Headache Metoprolol Tartrate 25 mg PO BID Atorvastatin [Lipitor] 20 mg PO BID Aspirin 325 mg PO BID Discharge Medication List Fluticasone Nasal [place] [Flonase Nasal [place]] 1 spray EA NOSTRIL DAILY 02/12/17 [History] Levothyroxine Sodium [Synthroid] 112 mcg PO DAILY 02/12/17 [History] Losartan [Cozaar] 50 mg PO DAILY 02/12/17 [History] Midodrine HCl [ProAmatine] 5 mg PO TID 02/12/17 [History] amLODIPine BESYLATE [Norvasc] 5 mg PO DAILY PRN 02/12/17 [History] Nitroglycerin Sl Tabs [Nitrostat] 0.4 mg SUBLINGUAL Q5M PRN #30 tab 02/13/17 [Rx ] Atorvastatin [Lipitor] 20 mg PO BID 03/13/17 [History] Butalb/Acetaminophen/Caffeine [Fioricet 50-325-40] 1 - 2 tab PO Q4H PRN [History] Metoprolol Tartrate 25 mg PO BID 03/13/17 [History] Aspirin 325 mg PO BID 03/15/17 [History] HYDROcodone/APAP 5-325MG [[place] 5-325] 1 - 2 each PO Q6HR PRN #120 tab 03/21/17 [Rx] Follow up Appointment(s)/Referral(s): Morgan Avila MD [STAFF PHYSICIAN] - 2 Weeks (Dr. Avila's office will call with an appointment) Jennifer Caruso PAC [REFERRING] - 04/09/17 1:00 pm Delmi Dela Cruz MD [STAFF PHYSICIAN] - 04/06/17 10:45 am Gadiel Stephenson NPC [Nurse Practitioner] - 03/28/17 11:00 am Chikis Castaneda MD [STAFF PHYSICIAN] - 04/13/17 10:45 am Ambulatory/Diagnostic Orders: Complete Blood Count w/diff [LAB.AMB] Time Frame: 3 Days, Location: Determined By Patient Comprehensive Metabolic Panel [LAB.AMB] Time Frame: 3 Days, Location: Determined By Patient Activity/Diet/Wound Care/Special Instructions: [facility]: #[phone] Follow up with speech therapy outpatient. Discharge Disposition: HOME WITH HOME HEALTH SERVICES
--- NOTE | 2017-03-21 14:21 | P.PN ---
Subjective A 71-year-old male patient who is post coronary artery bypass surgery and I was asked to be involved in the critical care management and vent management. This patient was having increased chest discomfort typical of angina. The patient underwent cardiac catheterization and demonstrated 40% proximal RCA lesion 40-50 % mid RCA lesion, 40% narrowing in the left main, 70% disease in the proximal LAD and 70% diagonal branch, 80% diagonal branch, 90% first of diffuse marginal branch and 5060% in the circumflex. Our study was done and the patient showed to have severe disease involving the right internal carotid artery disease and intermediate disease involving the left common carotid and left internal carotid artery. He is known to have hypertension. Hyperlipidemia. The patient underwent off-pump coronary artery bypass surgery with CASTELLANOS to LAD, saphenous vein graft to diagonal, obtuse marginal and RCA. Currently intubated on a mechanical ventilator and sedated with Diprivan. His assist-control mode of ventilation at the rate of 12, tidal volume 500, FiO2 of 40% and a PEEP of 5. The patient immediate postoperative blood This showed a pH of 7.35 with a pCO2 of 42 and pO2 of 513 and based on that the FiO2 was dropped from 100% on to 40%. His saturation remains around 97%. Chest x-ray shows adequate expansion of both lungs without evidence of any pneumothorax. ET tube is in a good location. The patient has 2 mediastinal chest tubes and 1 pleural chest tube all of them were actively draining since his surgery and his drainage has slowed down over the past few hours. The patient required to be given a total of 2 units of packed RBC intraoperatively, 4 units of fresh frozen plasma and 5 platelet concentrates. The hemoglobin at this point is on 7.0 and the patient is receiving another unit of packed RBC. PA pressures around 30/12 and the cardiac index is 2.7. The patient has received 2, 5% albumin's drapes. Currently the patient is on clevidipine for blood pressure control and insulin drip. Producing adequate amount of urine output. Creatinine is at 1.1. Hemodynamically stable. Ionized calcium was low and the patient was given 2 g of calcium gluconate. On 03/16/2017 the patient is extubated. The patient got extubated yesterday without any major difficulties and currently is on room air. Oximetry well. No desaturations. Using incentive spirometer. Sternum stable clean and intact. The mediastinal and the pleural chest tubes are still in place and output has dropped considerably. Hemoglobin is stable and the patient had received a total of 3 units of packed RBCs. The Cobb-Katty have been removed and the cordis still in place. Chest x-ray from today shows postsurgical changes without evidence of any pneumothorax and the lungs are well expanded bilaterally. The patient is on no pressors. The patient on insulin drip at 2.5 units an hour which will be switched to subcu coverage. He had some clear liquid diet earlier this morning. No bowel movements yet. Sitting up on a chair. No cardiac arrhythmias of been noted. Afebrile. No other significant events overnight. Urine output is adequate more than 25 mL an hour. On 03/17/2017 the patient remains extubated. Yesterday afternoon the patient started having some increased shortness of breath. He became progressively more hypoxemic and had to placed on high flow oxygen 6 L/m nasal cannula. Chest x-ray from today showing the Clements pleural effusion on the right. Chest tubes are all in good location. Noted the patient also had developed a drop in hemoglobin down to 6.7. He was given a unit of packed RBC. He also dropped his pressure and he had to be placed on norepinephrine infusion for a few hours and currently his been off for more than 6 hours. He is producing adequate amount of urine output in the order of 20-25 an hour. Chest tubes both mediastinal and pleural are still producing serosanguineous somewhat bloody liquidy material at the rate of 20-30 mL an hour basis. He is weaned down to 4 L/m nasal cannula. Is using incentive spirometer. No nausea or vomiting. No chest pain. He has no specific complaints otherwise for now. Creatinine is at 1.4 which is close to his baseline. On 03/18/2017 the patient remains extubated. The mediastinal chest tubes were moved today and the patient only has a left pleural chest tube. Sternum stable clean and intact. Hemodynamically stable. At 2 L/m nasal cannula and his saturations around 94-95%. Adequate urine output. Creatinine is stable at 1.3. Remains stable at 8.3. S x-ray from today is showing stable post thoracotomy findings with a left-sided chest tube and the rest of the hilar and the structures are all within normal limits. There may be a small right-sided pleural effusion. On 03/19/2017 the patient is doing well. The left-sided pleural chest tube was removed. Chest x-ray shows adequate expansion of both lungs. No respiratory difficulties. No chest pain. Hemodynamically stable. Sternum stable clean and intact. No other significant events overnight. Cardiac rhythm remains sinus. The patient is seen again today 03/20/2017 on the selective care unit. He is currently awake and alert in no acute distress. He did have an episode of hypotension following his morning medications. These are being adjusted by cardiology. He denies any worsening shortness of breath, cough or congestion. He is doing well on his incentive spirometer. His chest x-ray reveals trace effusions with adjacent atelectasis. Chest tubes and been removed. No evidence of pneumothorax. He is maintaining good O2 saturations in the mid 90s on room air. He is afebrile. The patient is seen again today 03/21/2017 in follow-up on the selective care unit. He is currently awake and alert in no acute distress. He's been more hemodynamically stable. He is back on midodrine. He's been up ambulating without distress. He denies any worsening shortness of breath, cough or congestion. His chest x-ray reveals continued small left pleural effusion with atelectasis. He is doing well with the incentive spirometry. He is anxious to go home. Objective - Vital Signs Vital signs: Vital Signs Temp 98.8 F 03/21/17 11:34 Pulse 88 03/21/17 11:34 Resp 16 03/21/17 11:34 BP 138/78 03/21/17 11:34 Pulse Ox 97 03/21/17 11:34 Intake & Output 03/20/17 03/21/17 03/21/17 18:59 06:59 18:59 Intake Total 1320 710 Output Total 500 250 Balance 820 460 Weight 78.8 kg Intake: Oral 1320 710 Output: Urine 500 250 Other: Voiding Method Toilet Urinal # Voids 1 1 1 # Bowel Movements 1 ABP, PAP, CO, CI - Last Documented Arterial Blood Pressure 114/49 Pulmonary Artery Pressure 20/12 Cardiac Output 6 Cardiac Index 3.2 - Exam Head exam was generally normal. There was no scleral icterus or corneal arcus. Mucous membranes were moist. Neck is supple. Mucous membranes are dry. Distal with or neck masses. Lungs sounds are diminished bilaterally. Sternum stable clean and intact. Heart sounds are regular and there is a pericardial rub. Positive S1-S2. No significant murmurs appreciated.Abdominal exam revealed normal bowel sounds. The abdomen was soft, non-tender, and without masses, organomegaly, or appreciable enlargement of the abdominal aorta.Examination of the extremities revealed easily palpable radial, femoral and pedal pulses. There was no cyanosis, clubbing or edema. - Labs CBC & Chem 7: 03/21/17 06:13 03/21/17 06:13 Labs: Abnormal Lab Results - Last 24 Hours (Table) 03/20/17 03/21/17 03/21/17 Range/Units 16:42 06:13 06:13 RBC 2.56 L (4.30-5.90) m/uL Hgb 7.6 L (13.0-17.5) gm/dL Hct 23.2 L (39.0-53.0) % BUN 29 H (9-20) mg/dL POC Glucose (mg/dL) 104 H (75-99) mg/dL Total Protein 5.4 L (6.3-8.2) g/dL Albumin 3.4 L (3.5-5.0) g/dL 03/21/17 Range/Units 07:25 RBC (4.30-5.90) m/uL Hgb (13.0-17.5) gm/dL Hct (39.0-53.0) % BUN (9-20) mg/dL POC Glucose (mg/dL) 110 H (75-99) mg/dL Total Protein (6.3-8.2) g/dL Albumin (3.5-5.0) g/dL Assessment and Plan Plan: Assessment 1 multivessel coronary artery disease and the patient is status post four- vessel coronary artery bypass surgery including CASTELLANOS to LAD. Patient is postop day #6. 2 expected postoperative atelectasis. Working well of the incentive spirometer. Improved. 3 anemia , stable hemoglobin for now at 8.0 postoperative received a total of 4 units of packed RBCs. 4 chronic renal failure, creatinine is normal at this point and the patient is producing adequate amount of urine output. Creatinine is back to its baseline is around 1.2. 5 carotid artery disease, as discussed earlier 6 hypertension 8 hyperlipidemia 9. Hearing impairment 10 throat cancer back in 2005, post chemoradiation therapy Plan: The patient was seen and evaluated by Dr. Castaneda. His chest x-ray and labs were reviewed. The patient is stable from the pulmonary standpoint. He is cleared for discharge once cleared by cardiothoracic. He'll follow-up in our office in 1-2 weeks' time. We'll repeat a chest x-ray done. He is again encouraged regarding the increased use of the incentive spirometer and cough and deep breathing exercises. He is encouraged to call sooner with any pulmonary symptoms or other questions or concerns.
--- NOTE | 2017-03-21 15:16 | P.PN ---
Subjective A 71-year-old male patient who is post coronary artery bypass surgery and I was asked to be involved in the critical care management and vent management. This patient was having increased chest discomfort typical of angina. The patient underwent cardiac catheterization and demonstrated 40% proximal RCA lesion 40-50 % mid RCA lesion, 40% narrowing in the left main, 70% disease in the proximal LAD and 70% diagonal branch, 80% diagonal branch, 90% first of diffuse marginal branch and 5060% in the circumflex. Our study was done and the patient showed to have severe disease involving the right internal carotid artery disease and intermediate disease involving the left common carotid and left internal carotid artery. He is known to have hypertension. Hyperlipidemia. 03/20/2017. Patient was seen and examined on the telemetry unit. Awake and alert in no acute distress. blood pressure remains in the low 90s to high 80s.patient denies any shortness of breath, no chest discomfort. Chest x-ray reveals trace effusions with adjacent atelectasis. 03/21/2017. Patient seen and examined this morning, doing well overall. He has been up ambulating without any difficulty. Hemodynamically stable. Objective - Vital Signs Vital signs: Vital Signs Temp 98.8 F 03/21/17 11:34 Pulse 88 03/21/17 11:34 Resp 16 03/21/17 11:34 BP 138/78 03/21/17 11:34 Pulse Ox 97 03/21/17 11:34 Intake & Output 03/20/17 03/21/17 03/21/17 18:59 06:59 18:59 Intake Total 1320 710 Output Total 500 250 Balance 820 460 Weight 78.8 kg Intake: Oral 1320 710 Output: Urine 500 250 Other: Voiding Method Toilet Urinal # Voids 1 1 1 # Bowel Movements 1 ABP, PAP, CO, CI - Last Documented Arterial Blood Pressure 114/49 Pulmonary Artery Pressure 20/12 Cardiac Output 6 Cardiac Index 3.2 - Exam PHYSICAL EXAMINATION: HEENT: [Head is atraumatic, normocephalic. Pupils equal, round. Neck is supple. There is no elevated jugular venous pressure.] HEART EXAMINATION: [Heart S1, S2 pericardial rub is heard.] CHEST EXAMINATION:lungs are diminished bilaterally with fine crackles to the bases. ABDOMEN: [ Soft, nontender. Bowel sounds are heard. No organomegaly noted]. EXTREMITIES:[ 2+ peripheral pulses with no evidence of peripheral edema and no calf tenderness noted]. NEUROLOGIC [patient is awake, alert and oriented -3.] . - Labs CBC & Chem 7: 03/21/17 06:13 03/21/17 06:13 Labs: Abnormal Lab Results - Last 24 Hours (Table) 03/20/17 03/21/17 03/21/17 Range/Units 16:42 06:13 06:13 RBC 2.56 L (4.30-5.90) m/uL Hgb 7.6 L (13.0-17.5) gm/dL Hct 23.2 L (39.0-53.0) % BUN 29 H (9-20) mg/dL POC Glucose (mg/dL) 104 H (75-99) mg/dL Total Protein 5.4 L (6.3-8.2) g/dL Albumin 3.4 L (3.5-5.0) g/dL 03/21/17 Range/Units 07:25 RBC (4.30-5.90) m/uL Hgb (13.0-17.5) gm/dL Hct (39.0-53.0) % BUN (9-20) mg/dL POC Glucose (mg/dL) 110 H (75-99) mg/dL Total Protein (6.3-8.2) g/dL Albumin (3.5-5.0) g/dL Assessment and Plan (1) Status post coronary artery bypass graft Status: Acute (2) Coronary artery disease Status: Acute (3) Hyperlipidemia Status: Acute (4) Hypertension Status: Acute (5) Tobacco dependence in remission Status: Acute Plan: from cardiology's perspective, we'll recommend to continue the patient on his current medications. will be discharged home today, follow-up appointment will be made in the office 2 weeks post discharge. DNP note has been reviewed, I agree with a documented findings and plan of care. Patient was seen and examined.
== END 2017-03-21 15:17 | disposition home health service (06) | DRG 236 ==
LOC: 2ORMAIN 05:49 → 6ICU 14:13 → 6SEL 03-19 17:41
PROVIDERS: ADMIT Surgery; ATTEND Surgery
PROC: 021209W Bypass Coronary Artery, Three Arteries from Aorta with Autologous Venous Tissue, Open Approach (ICD-10-PCS; principal; 2017-03-15 08:00)
PROC: 06BQ4ZZ Excision of Left Saphenous Vein, Percutaneous Endoscopic Approach (ICD-10-PCS; principal; 2017-03-15 08:00)
PROC: 02100Z9 Bypass Coronary Artery, One Artery from Left Internal Mammary, Open Approach (ICD-10-PCS; principal; 2017-03-15 08:00)
PROC: 06BP4ZZ Excision of Right Saphenous Vein, Percutaneous Endoscopic Approach (ICD-10-PCS; principal; 2017-03-15 08:00)
DX: I25.110 Atherosclerotic heart disease of native coronary artery with unstable angina pectoris (principal); J90 Pleural effusion, not elsewhere classified; I13.10 Hypertensive heart and chronic kidney disease without heart failure, with stage 1 through stage 4 chronic kidney disease, or unspecified chronic kidney disease; D62 Acute posthemorrhagic anemia; J98.11 Atelectasis; I65.23 Occlusion and stenosis of bilateral carotid arteries; E78.5 Hyperlipidemia, unspecified; F17.201 Nicotine dependence, unspecified, in remission; H91.90 Unspecified hearing loss, unspecified ear; N18.9 Chronic kidney disease, unspecified; R09.02 Hypoxemia; Z79.82 Long term (current) use of aspirin; Z79.899 Other long term (current) drug therapy; Z82.49 Family history of ischemic heart disease and other diseases of the circulatory system; Z85.818 Personal history of malignant neoplasm of other sites of lip, oral cavity, and pharynx; Z86.73 Personal history of transient ischemic attack (TIA), and cerebral infarction without residual deficits; Z92.21 Personal history of antineoplastic chemotherapy; Z92.3 Personal history of irradiation
CPT/HCPCS: 36430; 36600; 36620; 71010; 71020; 80048; 80053; 82330; 82533; 82805; 83735; 84100; 85025; 85027; 85384; 85520; 85610; 85730; 86850; 86891; 86900; 86901; 86920; 94002; 94640

== ENCOUNTER → 2017-03-27 | Outpatient (CLI) | payer OTHER ==
[2017-03-27 15:24] LABS: Calcium 9.3 mg/dL (8.4-10.2); Potassium 5.2 mmol/L (3.5-5.1); Total Bilirubin 0.9 mg/dL (0.2-1.3); Total Protein 6.2 g/dL (6.3-8.2)
[2017-03-27 15:27] LABS: Anisocytosis Slight; Basophils # (A) 0.1 k/uL (0-0.2); Basophils % (A) 1 %; CH 29.6; CHCM 32.2; Eosinophils # (A) 1.4 k/uL (0-0.7); Eosinophils % (A) 13 %; HCT 30.5 % (39.0-53.0); HGB 10.1 gm/dL (13.0-17.5); Hypochromasia Slight; Luc # (Auto) 0.32; Luc % (Auto) 3; Lymphocytes # (A) 1.7 k/uL (1.0-4.8); Lymphocytes % (A) 16 %; MCH 30.6 pg (25.0-35.0); MCV 92.7 fL (80.0-100.0); Mean Platelet Volume 6.8; Monocytes # (A) 0.5 k/uL (0-1.0); Monocytes % (A) 5 %; Neutrophils % (A) 64 %; RBC 3.29 m/uL (4.30-5.90); RDW 16.1 % (11.5-15.5); WBC (Perox) 11.35
== END | disposition home or self-care (01) ==
LOC: LABWHC1 14:38
PROVIDERS: ATTEND Nurse Practitioner Acute Care
DX: Z09 Encounter for follow-up examination after completed treatment for conditions other than malignant neoplasm (principal); Z86.79 Personal history of other diseases of the circulatory system
CPT/HCPCS: 36415; 80053; 85025

== ENCOUNTER 2017-07-02 09:48 | Observation (INO) | payer MEDICARE, OTHER ==
[2017-07-02] MEDS ORDERED: NITROGLYCERIN OINT 1 INCH/GM PACKET TOPICAL STA (10:25)
[2017-07-02] MEDS ORDERED: ASPIRIN 81 MG PO STA (10:25)
--- NOTE | 2017-07-02 10:30 | ED ---
General Adult HPI - General Chief complaint: Chest Pain Stated complaint: chest pressure, recent heart Sx Time Seen by Provider: 07/02/17 10:12 Source: patient, family, RN notes reviewed Mode of arrival: wheelchair Limitations: no limitations - History of Present Illness Initial comments: Patient is a pleasant 71-year-old male presenting to the emergency department complaining of chest discomfort. Onset was this morning. Symptoms have essentially resolved at this point. Patient was doing some light exertion up and down the steps and chasing the grandson. Patient had discomfort similar to previous cardiac problems prior to heart surgery. Patient did have associated dyspnea.. No nausea vomiting. Patient did appear diaphoretic to son. - Related Data Home Medications Medication Instructions Recorded Confirmed Fluticasone Nasal [place] [Flonase 1 spray EA NOSTRIL DAILY 02/12/17 07/02/17 Nasal [place]] Levothyroxine Sodium [Synthroid] 112 mcg PO DAILY 02/12/17 07/02/17 Midodrine HCl [ProAmatine] 5 mg PO TID 02/12/17 07/02/17 Atorvastatin [Lipitor] 40 mg PO HS 07/02/17 07/02/17 Metoprolol Tartrate [Lopressor] 25 mg PO BID 07/02/17 07/02/17 Sennosides-Docusate Sodium 2 tab PO HS 07/02/17 07/02/17 [Senokot-S] amLODIPine [Norvasc] 5 mg PO DAILY 07/02/17 07/02/17 Previous Rx's Medication Instructions Recorded Aspirin 81 mg PO DAILY #30 03/21/17 Clopidogrel [Plavix] 75 mg PO DAILY #30 tab 03/21/17 Pantoprazole [Protonix] 40 mg PO AC-BRKFST #30 tab 03/21/17 Allergies Allergy/AdvReac Type Severity Reaction Status Date / Time No Known Allergies Allergy Verified 07/02/17 10:07 Review of Systems ROS Statement: Those systems with pertinent positive or pertinent negative responses have been documented in the HPI. ROS Other: All systems not noted in ROS Statement are negative. Constitutional: Denies: fever Eyes: Denies: eye pain ENT: Denies: ear pain Respiratory: Reports: dyspnea. Denies: cough Cardiovascular: Reports: chest pain Endocrine: Denies: fatigue Gastrointestinal: Denies: abdominal pain Genitourinary: Denies: dysuria Musculoskeletal: Denies: back pain Skin: Denies: rash Neurological: Denies: weakness Past Medical History Past Medical History: Cancer, Chest Pain / Angina, Hearing Disorder / Deafness, Hyperlipidemia, Hypertension Additional Past Medical History / Comment(s): On a artery disease details discussed above, carotid artery disease details discussed above, throat cancer diagnosed back in 2006 post chemoradiation therapy, CVA, history of without any major deficits hypertension, hypothyroidism and morbid deafness, normal left ventricular function with an ejection fraction of 60-65% without evidence of any significant pulmonary hypertension or pericardial effusion no valvular abnormalities based on echocardiogram from 2017. History of Any Multi-Drug Resistant Organisms: None Reported Past Surgical History: Heart Catheterization, Hernia Repair Additional Past Surgical History / Comment(s): bilateral shoulder replacement, three sinus surgical procedures-polypectomy. radical neck dissection post tonsillar cancer Past Anesthesia/Blood Transfusion Reactions: No Reported Reaction Past Psychological History: No Psychological Hx Reported Smoking Status: Former smoker - Past Family History Father Family Medical History: Cancer Mother Family Medical History: Congestive Heart Failure (CHF) General Exam Limitations: no limitations General appearance: alert, in no apparent distress Head exam: Present: atraumatic Eye exam: Present: normal appearance, PERRL ENT exam: Present: normal oropharynx Neck exam: Present: normal inspection Respiratory exam: Present: normal lung sounds bilaterally. Absent: chest wall tenderness Cardiovascular Exam: Present: regular rate, normal rhythm Expanded Peripheral pulses: 2+: Radial (R), Radial (L), Dorsalis Pedis (R), Dorsalis Pedis (L) GI/Abdominal exam: Present: soft. Absent: tenderness Extremities exam: Present: normal inspection. Absent: pedal edema, calf tenderness Neurological exam: Present: alert Psychiatric exam: Present: normal affect, normal mood Skin exam: Present: normal color Course Vital Signs 07/02/17 07/02/17 07/02/17 09:51 10:07 11:07 Temperature 97.1 F L Pulse Rate 86 78 70 Respiratory 18 Rate Blood Pressure 162/89 167/91 159/74 O2 Sat by Pulse 97 100 100 Oximetry EKG Findings - EKG Comments: EKG Findings:: Normal sinus rhythm 78. SC 166. QRS 86. QT 358. QTC 408. Left axis. Inferior Q waves. No acute ST change. Medical Decision Making - Medical Decision Making Patient reexamined and resting comfortably in bed. Patient is symptom-free at this time. Patient and family updated on results and plan. Case discussed with Dr. Fischer, who will admit his patient. - Lab Data Result diagrams: 07/02/17 10:30 07/02/17 10:30 Lab Results 07/02/17 07/02/17 07/02/17 Range/Units 10:30 10:30 10:30 WBC 8.2 (3.8-10.6) k/uL RBC 5.01 (4.30-5.90) m/uL Hgb 14.6 (13.0-17.5) gm/dL Hct 43.3 (39.0-53.0) % MCV 86.5 (80.0-100.0) fL MCH 29.1 (25.0-35.0) pg MCHC 33.6 (31.0-37.0) g/dL RDW 15.5 (11.5-15.5) % Plt Count 191 (150-450) k/uL Neutrophils % 69 % Lymphocytes % 16 % Monocytes % 6 % Eosinophils % 7 % Basophils % 1 % Neutrophils # 5.6 (1.3-7.7) k/uL Lymphocytes # 1.3 (1.0-4.8) k/uL Monocytes # 0.5 (0-1.0) k/uL Eosinophils # 0.6 (0-0.7) k/uL Basophils # 0.1 (0-0.2) k/uL PT (9.0-12.0) sec INR (<1.2) APTT (22.0-30.0) sec Sodium 139 (137-145) mmol/L Potassium 4.8 (3.5-5.1) mmol/L Chloride 101 (98-107) mmol/L Carbon Dioxide 28 (22-30) mmol/L Anion Gap 10 mmol/L BUN 23 H (9-20) mg/dL Creatinine 1.69 H (0.66-1.25) mg/dL Est GFR (MDRD) Af Amer 49 (>60 ml/min/1.73 sqM) Est GFR (MDRD) Non-Af 40 (>60 ml/min/1.73 sqM) Glucose 93 (74-99) mg/dL Calcium 10.0 (8.4-10.2) mg/dL Magnesium 1.7 (1.6-2.3) mg/dL Total Bilirubin 0.6 (0.2-1.3) mg/dL AST 27 (17-59) U/L ALT 44 (21-72) U/L Alkaline Phosphatase 53 (38-126) U/L Total Creatine Kinase 76 (55-170) U/L CK-MB (CK-2) 0.7 (0.0-2.4) ng/mL CK-MB (CK-2) Rel Index 0.9 Troponin I 0.016 (0.000-0.034) ng/mL Total Protein 7.3 (6.3-8.2) g/dL Albumin 4.7 (3.5-5.0) g/dL 07/02/17 Range/Units 10:30 WBC (3.8-10.6) k/uL RBC (4.30-5.90) m/uL Hgb (13.0-17.5) gm/dL Hct (39.0-53.0) % MCV (80.0-100.0) fL MCH (25.0-35.0) pg MCHC (31.0-37.0) g/dL RDW (11.5-15.5) % Plt Count (150-450) k/uL Neutrophils % % Lymphocytes % % Monocytes % % Eosinophils % % Basophils % % Neutrophils # (1.3-7.7) k/uL Lymphocytes # (1.0-4.8) k/uL Monocytes # (0-1.0) k/uL Eosinophils # (0-0.7) k/uL Basophils # (0-0.2) k/uL PT 11.7 (9.0-12.0) sec INR 1.2 H (<1.2) APTT 26.3 (22.0-30.0) sec Sodium (137-145) mmol/L Potassium (3.5-5.1) mmol/L Chloride (98-107) mmol/L Carbon Dioxide (22-30) mmol/L Anion Gap mmol/L BUN (9-20) mg/dL Creatinine (0.66-1.25) mg/dL Est GFR (MDRD) Af Amer (>60 ml/min/1.73 sqM) Est GFR (MDRD) Non-Af (>60 ml/min/1.73 sqM) Glucose (74-99) mg/dL Calcium (8.4-10.2) mg/dL Magnesium (1.6-2.3) mg/dL Total Bilirubin (0.2-1.3) mg/dL AST (17-59) U/L ALT (21-72) U/L Alkaline Phosphatase (38-126) U/L Total Creatine Kinase (55-170) U/L CK-MB (CK-2) (0.0-2.4) ng/mL CK-MB (CK-2) Rel Index Troponin I (0.000-0.034) ng/mL Total Protein (6.3-8.2) g/dL Albumin (3.5-5.0) g/dL - Radiology Data Radiology results: image reviewed (Chest x-ray shows no acute process. Postoperative changes.) Disposition Clinical Impression: Chest pain Disposition: ADMITTED IP TO THIS [facility] Referrals: Kale Fischer MD [Primary Care Provider] - 1-2 days Decision Time: 11:57
[2017-07-02 10:43] LABS: Basophils # (A) 0.1 k/uL (0-0.2); Basophils % (A) 1 %; CH 28.8; CHCM 33.4; Eosinophils # (A) 0.6 k/uL (0-0.7); Eosinophils % (A) 7 %; HCT 43.3 % (39.0-53.0); HDW 2.51; HGB 14.6 gm/dL (13.0-17.5); Luc # (Auto) 0.13; Luc % (Auto) 2; Lymphocytes # (A) 1.3 k/uL (1.0-4.8); Lymphocytes % (A) 16 %; MCH 29.1 pg (25.0-35.0); MCHC 33.6 g/dL (31.0-37.0); MCV 86.5 fL (80.0-100.0); Mean Platelet Volume 7.5; Monocytes # (A) 0.5 k/uL (0-1.0); Monocytes % (A) 6 %; Neutrophils # (A) 5.6 k/uL (1.3-7.7); Neutrophils % (A) 69 %; RBC 5.01 m/uL (4.30-5.90); RDW 15.5 % (11.5-15.5); WBC 8.2 k/uL (3.8-10.6); WBC (Perox) 8.43
[2017-07-02 10:55] LABS: Magnesium 1.7 mg/dL (1.6-2.3); Potassium 4.8 mmol/L (3.5-5.1); Total Bilirubin 0.6 mg/dL (0.2-1.3); Total Protein 7.3 g/dL (6.3-8.2)
[2017-07-02 11:00] LABS: INR 1.2 (<1.2); Partial Thromboplastin Time 26.3 sec (22.0-30.0); Prothrombin Time 11.7 sec (9.0-12.0)
--- NOTE | 2017-07-02 11:10 | XR ---
EXAMINATION TYPE: XR chest 2V DATE OF EXAM: 07/02/2017 COMPARISON: 03/21/2017 HISTORY: Shortness of breath TECHNIQUE: Frontal and lateral views of the chest are obtained. FINDINGS: Scattered senescent parenchymal changes noted. Hyperinflation compatible with COPD. No evidence for infiltrate. No evidence for atelectasis. Heart size is stable. Mediastinal structures are stable and grossly unremarkable. No evidence for hilar prominence. Degenerative changes dorsal spine. IMPRESSION: 1. No evidence for acute pulmonary disease.
[2017-07-02 11:25] LABS: Creatine Kinase MB 0.7 ng/mL (0.0-2.4); Troponin I 0.016 ng/mL (0.000-0.034)
[2017-07-02] MEDS ORDERED: NITROGLYCERIN SL TABS 0.4 MG TAB SUBLINGUAL PRN (11:57)
[2017-07-02] MEDS: NITROGLYCERIN OINT 1 INCH/GM PACKET TOPICAL SCH ×2 (12:28→22:32)
--- NOTE | 2017-07-02 13:07 | P.HPIM ---
History of Present Illness H&P Date: 07/02/17 Chief Complaint: Chest tightness Physical a 71-year-old male with a known past medical history of coronary artery disease with previous quadruple coronary bypass graft in February 2017, right-sided carotid artery stenosis that is being followed outpatient. Patient scheduled to see Dr. Vizcaino July 12. He also has a known history of hypertension, hyperlipidemia, hypothyroidism, CVA, chronic kidney disease and throat cancer diagnosed in 2005 in which she had undergone surgery with chemo and radiation treatment. Patient reports his chest tightness started around 8: 00 this morning. A very similar to the symptoms he was experiencing before he required his bypass surgery. Patient states the tightness went up into his throat and he had some discomfort in the jaw. Also reports some shortness of breath. Denies any sweating any nausea or vomiting. He denies any cough or chills. Denies any lightheadedness or dizziness. He reports taking his home blood pressure pills and aspirin without any improvement in his symptoms. Patient took his blood pressure at home and was found to be hypotensive. He reports systolic blood pressure was in the 80s. Therefore he took his Midrin which she has not had used in a while. Blood pressures have been elevated. However, patient is agitated more stressed. He reports her blood pressures become elevated then. He does report having a headache earlier that has improved. Nitropaste was added in the emergency room. Awaiting repeat repeat blood pressure readings before adjusting medications. Chest x-ray negative. EKG showing normal sinus rhythm. First troponin is negative. Cardiology has been consulted. Patient's been started on subcu heparin. Admitted to the observation floor for further evaluation of his chest pain. Review of Systems Please refer to HPI otherwise unremarkable Past Medical History Past Medical History: Cancer, Chest Pain / Angina, Hearing Disorder / Deafness, Hyperlipidemia, Hypertension Additional Past Medical History / Comment(s): On a artery disease details discussed above, carotid artery disease details discussed above, throat cancer diagnosed back in 2005 post chemoradiation therapy, CVA, history of without any major deficits hypertension, hypothyroidism and morbid deafness, normal left ventricular function with an ejection fraction of 60-65% without evidence of any significant pulmonary hypertension or pericardial effusion no valvular abnormalities based on echocardiogram from 2017. History of Any Multi-Drug Resistant Organisms: None Reported Past Surgical History: Heart Catheterization, Hernia Repair Additional Past Surgical History / Comment(s): bilateral shoulder replacement, three sinus surgical procedures-polypectomy. radical neck dissection post tonsillar cancer Past Anesthesia/Blood Transfusion Reactions: No Reported Reaction Past Psychological History: No Psychological Hx Reported Smoking Status: Former smoker - Past Family History Father Family Medical History: Cancer Mother Family Medical History: Congestive Heart Failure (CHF) Medications and Allergies Home Medications Medication Instructions Recorded Confirmed Type Fluticasone Nasal [place] [Flonase 1 spray EA NOSTRIL DAILY 02/12/17 07/02/17 History Nasal [place]] Levothyroxine Sodium [Synthroid] 112 mcg PO DAILY 02/12/17 07/02/17 History Midodrine HCl [ProAmatine] 5 mg PO TID 02/12/17 07/02/17 History Aspirin 81 mg PO DAILY #30 03/21/17 07/02/17 Rx Clopidogrel [Plavix] 75 mg PO DAILY #30 tab 03/21/17 07/02/17 Rx Pantoprazole [Protonix] 40 mg PO AC-BRKFST #30 tab 03/21/17 07/02/17 Rx Atorvastatin [Lipitor] 40 mg PO HS 07/02/17 07/02/17 History Metoprolol Tartrate [Lopressor] 25 mg PO BID 07/02/17 07/02/17 History Sennosides-Docusate Sodium 2 tab PO HS 07/02/17 07/02/17 History [Senokot-S] amLODIPine [Norvasc] 5 mg PO DAILY 07/02/17 07/02/17 History Allergies Allergy/AdvReac Type Severity Reaction Status Date / Time No Known Allergies Allergy Verified 07/02/17 10:07 Physical Exam Vitals: Vital Signs Temp Pulse Pulse Resp BP BP Pulse Ox 07/02/17 12:51 97.7 F 78 18 179/98 100 07/02/17 12:20 98.2 F 72 18 173/92 100 07/02/17 11:07 70 159/74 100 07/02/17 10:07 78 167/91 100 07/02/17 09:51 97.1 F L 86 18 162/89 97 Intake and Output 07/01/17 07/02/17 07/02/17 22:59 06:59 14:59 Other: Weight 71.1 kg Patient Weight 07/03/17 06:59 Weight 71.1 kg Head normocephalic Neck supple no carotid bruits noted Lungs clear to auscultation bilaterally no wheezing or crackles Heart regular rate and rhythm S1-S2, no rub or gallop Abdomen is soft nontender nondistended positive bowel sounds no hepatosplenomegaly Extremities no edema Neuro alert and orientated to 3 Results CBC & Chem 7: 07/02/17 10:30 07/02/17 10:30 Labs: Abnormal Lab Results - Last 24 Hours (Table) 07/02/17 07/02/17 Range/Units 10:30 10:30 INR 1.2 H (<1.2) BUN 23 H (9-20) mg/dL Creatinine 1.69 H (0.66-1.25) mg/dL Assessment and Plan Assessment: 1. Chest pain: First troponin is negative. EKG showed a normal sinus rhythm. Cardiology has been consulted. Patient has significant history of coronary artery disease with recent quadruple bypass grafting in February [address] Dela Cruz. Continue full aspirin 325 mg daily 2. Essential hypertension with elevated blood pressures. Nitropaste just recently added in the emergency room. Awaiting repeat blood pressure. Will adjust hypertensive medications as needed 3. Hyperlipidemia continue Lipitor 4. Hypothyroidism continue Synthroid 5. Right carotid artery stenosis: Scheduled to follow-up with Dr. Vizcaino on June 2016 6. Chronic kidney disease stage 3B 7. History of CVA 8. History of throat cancer status post chemo and radiation treatment in 2005 GI prophylaxis Protonix and DVT prophylaxis subcu heparin Time with Patient: Greater than 30 (Greater than 50% of the total time spent in counseling and coordination of care.I performed an examination of the patient and discussed their management with the physician Sales Representative Trainee. I have reviewed the Physician Sales Representative Trainee's notes and agree with the documented findings and plan of care)
[2017-07-02] MEDS ORDERED: MIDODRINE 5 MG TAB PO SCH (17:30)
[2017-07-02 18:46] LABS: Creatine Kinase MB 0.6 ng/mL (0.0-2.4); Troponin I 0.017 ng/mL (0.000-0.034)
[2017-07-02] MEDS ORDERED: SENNOSIDES-DOCUSATE SODIUM 1 EACH TAB PO SCH (21:00)
[2017-07-02] MEDS ORDERED: ATORVASTATIN 40 MG TAB PO SCH (21:00)
[2017-07-02] MEDS: HEPARIN SODIUM,PORCINE 5,000 UNIT/ML 1 ML VIAL SQ SCH (22:31)
[2017-07-02] MEDS: METOPROLOL TARTRATE 25 MG TAB PO SCH (22:33)
[2017-07-02 23:37] LABS: Creatine Kinase MB 0.5 ng/mL (0.0-2.4); Troponin I 0.022 ng/mL (0.000-0.034)
[2017-07-03] MEDS: NITROGLYCERIN OINT 1 INCH/GM PACKET TOPICAL SCH ×2 (06:04→12:48)
[2017-07-03 06:08] VITALS: RESP 18
[2017-07-03] MEDS ORDERED: LEVOTHYROXINE 112 MCG TAB PO SCH (06:30)
[2017-07-03 07:00] LABS: Basophils % (A) 1 %; CHCM 33.1; Eosinophils # (A) 0.6 k/uL (0-0.7); Eosinophils % (A) 8 %; HCT 40.4 % (39.0-53.0); HDW 2.45; HGB 13.1 gm/dL (13.0-17.5); Luc # (Auto) 0.14; Luc % (Auto) 2; Lymphocytes # (A) 1.3 k/uL (1.0-4.8); Lymphocytes % (A) 20 %; MCH 28.6 pg (25.0-35.0); MCHC 32.5 g/dL (31.0-37.0); MCV 88.1 fL (80.0-100.0); Mean Platelet Volume 7.1; Monocytes # (A) 0.4 k/uL (0-1.0); Monocytes % (A) 6 %; Neutrophils # (A) 4.4 k/uL (1.3-7.7); Neutrophils % (A) 64 %; RBC 4.59 m/uL (4.30-5.90); RDW 15.4 % (11.5-15.5); WBC 6.8 k/uL (3.8-10.6); WBC (Perox) 6.99
[2017-07-03 07:14] LABS: Calcium 9.3 mg/dL (8.4-10.2); Potassium 4.5 mmol/L (3.5-5.1); Total Bilirubin 0.5 mg/dL (0.2-1.3); Total Protein 6.3 g/dL (6.3-8.2)
[2017-07-03] MEDS ORDERED: PANTOPRAZOLE 40 MG TABLET PO SCH (07:30)
[2017-07-03] MEDS ORDERED: REGADENOSON 0.4 MG/5 ML SYRINGE IV ONE (08:38)
[2017-07-03] MEDS ORDERED: AMINOPHYLLINE 500 MG/20 ML VIAL IV PRN (08:38)
[2017-07-03] MEDS ORDERED: amLODIPine 5 MG TAB PO SCH (09:00)
[2017-07-03] MEDS ORDERED: ASPIRIN 325 MG TAB PO SCH (09:00)
[2017-07-03] MEDS ORDERED: FLUTICASONE 50MCG/SPRAY NASAL 16GM EA NOSTRIL SCH (09:00)
[2017-07-03] MEDS ORDERED: CLOPIDOGREL 75 MG TAB PO SCH (09:00)
--- NOTE | 2017-07-03 10:44 | ECHOF ---
Referral Reason: MEASUREMENTS -------- HEIGHT: 180.3 cm WEIGHT: 70.8 kg BP: 133/87 RVIDd: 3.5 cm (< 3.3) IVSd: 1.6 cm (0.6 - 1.1) LVIDd: 3.6 cm (3.9 - 5.3) LVPWd: 1.6 cm (0.6 - 1.1) IVSs: 2.3 cm LVIDs: 1.6 cm LVPWs: 2.0 cm Ao Diam: 3.2 cm (2.0 - 3.7) AV Cusp: 1.8 cm (1.5 - 2.6) LA Diam: 3.0 cm (2.7 - 3.8) MV EXCURSION: 16.005 mm (> 18.000) MV EF SLOPE: 55 mm/s (70 - 150) EPSS: 0.2 cm MV E [place]: 0.45 m/s MV DecT: 170 ms MV A [place]: 0.47 m/s MV E/A Ratio: 0.97 RAP: 5.00 mmHg RVSP: 22.55 mmHg FINDINGS -------- Sinus rhythm. This was a technically good study. The left ventricular size is normal. There is moderate concentric left ventricular hypertrophy. O verall left ventricular systolic function is low-normal with, an EF between 50 - 55 %. Basal inferi or LV wall motion is hypokinetic. Mid inferior LV wall motion is hypokinetic. The right ventricle is normal in size and function. The left atrium is normal in size. The right atrium is normal in size. The aortic valve is trileaflet, and appears structurally normal. No aortic stenosis or regurgitation. The mitral valve is normal. There is trace to mild mitral regurgitation. Mild tricuspid regurgitation present. The right ventricular systolic pressure, as measured by Doppl er, is 22.55mmHg. There is no pulmonic regurgitation present. The aortic root size is normal. There is a small, generalized pericardial effusion present. CONCLUSIONS -------- 1. Sinus rhythm. 2. This was a technically good study. 3. There is moderate concentric left ventricular hypertrophy. 4. Overall left ventricular systolic function is low-normal with, an EF between 50 - 55 %. 5. Basal inferior LV wall motion is hypokinetic. 6. Mid inferior LV wall motion is hypokinetic. 7. The left atrium is normal in size. 8. The aortic valve is trileaflet, and appears structurally normal. No aortic stenosis or regurgitati on. 9. There is trace to mild mitral regurgitation. 10. The right ventricular systolic pressure, as measured by Doppler, is 22.55mmHg. 11. There is no pulmonic regurgitation present. 12. The aortic root size is normal. 13. There is a small, generalized pericardial effusion present. VOLUNTEER SPECIALIST: Ashlyn Lee RDCS
[2017-07-03 12:39] VITALS: BP 161/93; TEMP 97.4
[2017-07-03] MEDS: METOPROLOL TARTRATE 25 MG TAB PO SCH (12:39)
[2017-07-03] MEDS: HEPARIN SODIUM,PORCINE 5,000 UNIT/ML 1 ML VIAL SQ SCH (12:40)
[2017-07-03 12:47] VITALS: PULSE 87
--- NOTE | 2017-07-03 12:58 | NM ---
EXAMINATION TYPE: NM stress lexiscan cardiolite DATE OF EXAM: 07/03/2017 COMPARISON: 07/27/2015 HISTORY: 71-year-old male with chest pain TECHNIQUE: After the intravenous administration of 11.7 mCi Tc 99m Sestamibi - Cardiolite resting SP ECT images acquired 45 minutes post injection. The patient received 0.4mg Lexiscan, 28.4 mCi Tc 99m Sestamibi - Stress images obtained [address] injection FINDINGS: Review of stress and rest SPECT images demonstrates no distinct perfusion abnormality. Gated analysi s shows normal wall motion with an estimated left ventricular ejection fraction of 59 %. TID is calc ulated at 0.97, within normal limits. IMPRESSION: No scintigraphic evidence for reversible ischemia.
--- NOTE | 2017-07-03 13:01 | EST ---
EXERCISE STRESS AGE: 71 SEX: M HT: 71 WT: 186 PROTOCOL: Lexiscan Cardiolite STAGE: DURATION OF EXERCISE: HEART RATE REST: 92 BLOOD PRESSURE REST: 193/97 MAXIMUM HEART RATE ACHIEVED: 108 MAXIMUM BLOOD PRESSURE: 193/97 85% MPHR: 100% MPHR: METS: INDICATIONS: Chest pain. CLINICAL INFORMATION: Baseline rhythm is sinus mechanism, rate of 92, normal axis and intervals. Poor R-wave progression. Baseline blood pressure 193/97 Hg. The patient received injection of Lexiscan. Monitoring revealed no evidence of diagnostic ischemic ST deviation. Cardiolite was injected per protocol. CONCLUSION: 1. Nondiagnostic electrocardiographic stress testing. 2. Nuclear images will be reported separately. MMODL / IJN: [id number] /
--- NOTE | 2017-07-03 13:33 | P.CRDCN ---
History of Present Illness Consult date: 07/03/17 History of present illness: This is a 71-year-old male with past medical history significant for CAD with recent CABG CASTELLANOS to LAD, SVG to diagonal, SVG to OM and SVG to RCA, b/l carotid stenosis, hypertension and dyslipidemia. His CABG was in February of this year with Dr. Dela Cruz and he follows regularly with Dr. LUIGI Avila as an outpatient. We have been asked to see him in consultation for c/o chest tightness yesterday morning while he was cooking breakfast for himself and his grandson. These symptoms persisted for approximately 3 hrs and subsided upon arrival to ED. he has episodes of hypotension for which she is prescribed Midodrine when necessary. He states when he woke up history morning his blood pressure was low in the 80s systolic and he did take one 5 mg tablet. He states he has been attending cardiac rehab regularly and last week he was advanced to a higher level of exercise. His chest tightness was associated with mild shortness of breath. He denies dizziness, palpitations, nausea, vomiting or diaphoresis. He does state this tightness is similar to what he experienced prior to his CABG. The tightness goes under his arms and squeezes around like a belt tightening. He has seen Dr. Avila and has underwent a low level exercise stress test with no evidence of ischmic EKG changes. At the time of my exam he is seen sitting up in bed in no acute distress. His symptoms have completely subsided. Of note he is scheduled to see Dr. Spivey next week for discussion of carotid artery stenosis. EKG reveals sinus mechanism with evidence of old inferior infarct which is consistent with old EKG. Blood pressure 133/87 with heart rate of 86. Hemoglobin 13.1, platelets 168, potassium 4.5, magnesium 1.7, cardiac enzymes negative 3, BUN 25, creatinine 1.53. Current cardiac medications include amlodipine 5 mg daily, Midodrine 5 mg 3 times a day when necessary, Lopressor 25 mg twice a day, Plavix 75 mg daily, Lipitor 40 mg daily, aspirin 81 mg daily. Review of Systems CONSTITUTIONAL: Denies fever. Denies chills. EYES: Denies blurred vision. Denies vision changes. Denies eye pain. EARS, NOSE, MOUTH & THROAT: Denies headache. Denies sore throat. Denies ear pain. CARDIOVASCULAR: Complains of chest tightness, resolved with associated shortness of breath. Denies orthopnea. Denies PND. Denies palpitations. RESPIRATORY: Denies cough. GASTROINTESTINAL: Denies abdominal pain. Denies diarrhea. Denies constipation. Denies nausea. Denies vomiting. MUSCULOSKELETAL: Denies myalgias. INTEGUMENTARY: Denies pruitis. Denies rash. NEUROLOGIC: Denies numbness. Denies tingling. Denies weakness. PSYCHIATRIC: Denies anxiety. Denies depression. ENDOCRINE: Denies fatigue. Denies weight change. Denies polydipsia. Denies polyurina. GENITOURINARY: Denies burning, hematuria or urgency with micturation. HEMATOLOGIC: Denies history of anemia. Denies bleeding. 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 History of Any Multi-Drug Resistant Organisms: None Reported Past Surgical History: Coronary Bypass/CABG, Heart Catheterization, Hernia Repair, Orthopedic Surgery Additional Past Surgical History / Comment(s): 02/2017 CABG-4 vessel, 2006 radical neck dissection for tonsillar cancer, R inguinal hernia repair, 3 sinus surgeries with benign polypectomy, colonoscopy, bilateral rotator cuff repairs. Past Anesthesia/Blood Transfusion Reactions: No Reported Reaction Smoking Status: Former smoker - Past Family History Father Family Medical History: Cancer Additional Family Medical History / Comment(s): Father had lung cancer. He was a smoker. Mother Family Medical History: Congestive Heart Failure (CHF) Medications and Allergies Home Medications Medication Instructions Recorded Confirmed Type Fluticasone Nasal [place] [Flonase 1 spray EA NOSTRIL DAILY 02/12/17 07/02/17 History Nasal [place]] Levothyroxine Sodium [Synthroid] 112 mcg PO DAILY 02/12/17 07/02/17 History Midodrine HCl [ProAmatine] 5 mg PO TID 02/12/17 07/02/17 History Aspirin 81 mg PO DAILY #30 03/21/17 07/02/17 Rx Clopidogrel [Plavix] 75 mg PO DAILY #30 tab 03/21/17 07/02/17 Rx Pantoprazole [Protonix] 40 mg PO AC-BRKFST #30 tab 03/21/17 07/02/17 Rx Atorvastatin [Lipitor] 40 mg PO HS 07/02/17 07/02/17 History Metoprolol Tartrate [Lopressor] 25 mg PO BID 07/02/17 07/02/17 History Sennosides-Docusate Sodium 2 tab PO HS 07/02/17 07/02/17 History [Senokot-S] amLODIPine [Norvasc] 5 mg PO DAILY 07/02/17 07/02/17 History Allergies Allergy/AdvReac Type Severity Reaction Status Date / Time No Known Allergies Allergy Verified 07/02/17 10:07 Physical Exam Vitals: Vital Signs Temp Pulse Pulse Resp BP BP Pulse Ox 07/03/17 08:00 97.8 F 87 86 18 133/87 99 07/03/17 04:00 98.0 F 87 18 99/68 96 07/03/17 02:54 98.5 F 78 16 101/62 97 07/03/17 00:00 18 07/02/17 20:00 97.7 F 79 18 97/64 96 07/02/17 16:26 99 07/02/17 15:21 97.5 F L 77 18 142/75 99 07/02/17 13:15 170/103 153/84 07/02/17 12:51 97.7 F 78 18 179/98 100 Intake and Output 07/02/17 07/03/17 07/03/17 22:59 06:59 14:59 Intake Total 240 Balance 240 Intake: Oral 240 Other: Voiding Method Toilet Toilet Toilet # Voids 1 1 Weight 71.1 kg 70.76 kg Patient Weight 07/04/17 06:59 Weight 70.76 kg GENERAL: This is a 71-year-old male in no apparent distress at the time of my examination. HEENT: Head is atraumatic, normocephalic. Pupils are equal, round. Sclerae anicteric. Conjunctivae are clear. Mucous membranes of the mouth are moist. Neck is supple. There is no jugular venous distention. No carotid bruit is heard. LUNGS: Clear to auscultation no wheezes, rales or rhonchi. No chest wall tenderness is noted on palpation or with deep breathing. HEART: Regular rate and rhythm without murmurs, rubs or gallops. S1 and S2 heard. ABDOMEN: Soft, nontender. Bowel sounds are heard. No organomegaly noted. EXTREMITIES: 2+ peripheral pulses with no evidence of peripheral edema and no calf tenderness noted. NEUROLOGIC: Patient is awake, alert and oriented x3. Results 07/03/17 06:34 07/03/17 06:34 Cardiac Enzymes 07/02/17 07/02/17 07/03/17 Range/Units 17:20 22:42 06:34 AST 23 (17-59) U/L CK-MB (CK-2) 0.6 0.5 (0.0-2.4) ng/mL Troponin I 0.017 0.022 (0.000-0.034) ng/mL Lipids 07/03/17 Range/Units 06:34 Triglycerides 118 (<150) mg/dL Cholesterol 121 (<200) mg/dL HDL Cholesterol 58 (40-60) mg/dL CBC 07/03/17 Range/Units 06:34 WBC 6.8 (3.8-10.6) k/uL RBC 4.59 (4.30-5.90) m/uL Hgb 13.1 (13.0-17.5) gm/dL Hct 40.4 (39.0-53.0) % Plt Count 168 (150-450) k/uL Comprehensive Metabolic Panel 07/03/17 Range/Units 06:34 Sodium 138 (137-145) mmol/L Potassium 4.5 (3.5-5.1) mmol/L Chloride 105 (98-107) mmol/L Carbon Dioxide 24 (22-30) mmol/L BUN 25 H (9-20) mg/dL Creatinine 1.53 H (0.66-1.25) mg/dL Glucose 90 (74-99) mg/dL Calcium 9.3 (8.4-10.2) mg/dL AST 23 (17-59) U/L ALT 48 (21-72) U/L Alkaline Phosphatase 57 (38-126) U/L Total Protein 6.3 (6.3-8.2) g/dL Albumin 3.9 (3.5-5.0) g/dL Current Medications Generic Name Dose Route Start Last Admin Trade Name Arsalanq PRN Reason Stop Dose Admin Aminophylline 100 mg 07/03/17 08:38 Aminophylline IV 07/04/17 08:39 ONCE PRN Patient Response Amlodipine Besylate 5 mg 07/03/17 09:00 Norvasc PO DAILY [facility] Aspirin 325 mg 07/03/17 09:00 Aspirin PO DAILY [facility] Atorvastatin Calcium 40 mg 07/02/17 21:00 07/02/17 22:32 Lipitor PO 40 mg HS LEIDA Administration Clopidogrel Bisulfate 75 mg 07/03/17 09:00 Plavix PO DAILY [facility] Fluticasone Propionate 1 spray 07/03/17 09:00 Flonase Nasal [place] EA NOSTRIL DAILY [facility] Heparin Sodium (Porcine) 5,000 unit 07/02/17 21:00 07/02/17 22:31 Heparin SQ 5,000 unit Q12HR [facility] Administration Levothyroxine Sodium 112 mcg 07/03/17 06:30 07/03/17 06:43 Synthroid PO Not Given 0630 [facility] Metoprolol Tartrate 25 mg 07/02/17 21:00 07/02/17 22:33 Lopressor PO Not Given BID [facility] Nitroglycerin 1 inch 07/02/17 12:00 07/03/17 06:04 Nitro-Bid Oint TOPICAL Not Given Q6HR [facility] Nitroglycerin 0.4 mg 07/02/17 11:57 Nitrostat SUBLINGUAL Q5M PRN Chest Pain Pantoprazole Sodium 40 mg 07/03/17 07:30 Protonix PO AC-BRKFST [facility] Senna/Docusate Sodium 2 each 07/02/17 21:00 07/02/17 22:32 Senokot-S PO 2 each HS [facility] Administration Intake and Output 07/02/17 07/03/17 07/03/17 22:59 06:59 14:59 Intake Total 240 Balance 240 Intake: Oral 240 Other: Voiding Method Toilet Toilet Toilet # Voids 1 1 Weight 71.1 kg 70.76 kg Patient Weight 07/04/17 06:59 Weight 70.76 kg 07/03/17 06:34 07/03/17 06:34 Assessment and Plan Assessment: ASSESSMENT 1. Chest pain persisting for approximately 3 hours with associated mild shortness of breath 2. History of CAD with quadruple CABG February 2017 currently undergoing cardiac rehab 3. Hypertension with episodes of hypotension 4. Hyperlipidemia 5. Chronic kidney disease stage 3B PLAN Obtain 2D echocardiogram and doppler study to assess cardiac structure and function. Perform lexiscan stress test to evaluate for progression of CAD. Further recommendations will be based upon diagnostic results. Thank you kindly for this consultation. Upon discharge Mr. Burgos should continue with his already scheduled follow-up appointment with Dr. Spivey. Nurse Practitioner note has been reviewed, I agree with a documented findings and plan of care. Patient was seen and examined.
--- NOTE | 2017-07-03 14:10 | P.DS ---
Providers Date of admission: 07/02/17 11:57 Expected date of discharge: 07/03/17 Attending physician: Kale Fischer Consults: 07/02/17 11:57 Consult Physician Urgent Consulting Provider: Morgan Avila Consult Reason/Comments: chest pain Do you want consulting provider notified?: Yes Primary care physician: Kale Amado [facility] Course: Discharge diagnosis 1. Chest pain: MO ruled out. Troponins negative 3 sets. EKG showed a normal sinus rhythm. Cardiology has been consulted. Patient has significant history of coronary artery disease with recent quadruple bypass grafting in February [address] Dela Cruz. Continue baby aspirin daily. Patient underwent stress test showing no evidence of reversible ischemia 2. Essential hypertension with elevated blood pressures. Nitropaste just recently added in the emergency room. Awaiting repeat blood pressure. Will adjust hypertensive medications as needed 3. Hyperlipidemia continue Lipitor 4. Hypothyroidism continue Synthroid 5. Right carotid artery stenosis: Scheduled to follow-up with Dr. Vizcaino outpatient 6. Chronic kidney disease stage 3B 7. History of CVA 8. History of throat cancer status post chemo and radiation treatment in 2005 Hospital course Physical a 71-year-old male with a known past medical history of coronary artery disease with previous quadruple coronary bypass graft in February 2017, right-sided carotid artery stenosis that is being followed outpatient. Patient scheduled to see Dr. Vizcaino July 12. He also has a known history of hypertension, hyperlipidemia, hypothyroidism, CVA, chronic kidney disease and throat cancer diagnosed in 2005 in which she had undergone surgery with chemo and radiation treatment. Patient reports his chest tightness started around 8: 00 this morning. A very similar to the symptoms he was experiencing before he required his bypass surgery. Patient states the tightness went up into his throat and he had some discomfort in the jaw. Also reports some shortness of breath. Denies any sweating any nausea or vomiting. He denies any cough or chills. Denies any lightheadedness or dizziness. He reports taking his home blood pressure pills and aspirin without any improvement in his symptoms. Patient took his blood pressure at home and was found to be hypotensive. He reports systolic blood pressure was in the 80s. Therefore he took his Midrin which she has not had used in a while. Blood pressures have been elevated. However, patient is agitated more stressed. He reports her blood pressures become elevated then. He does report having a headache earlier that has improved. Nitropaste was added in the emergency room. Awaiting repeat repeat blood pressure readings before adjusting medications. Chest x-ray negative. EKG showing normal sinus rhythm. First troponin is negative. Cardiology has been consulted. Patient's been started on subcu heparin. Admitted to the observation floor for further evaluation of his chest pain. Patient was seen evaluated by cardiology. They ordered a stress test and echocardiogram. Stress test showed no evidence of reversible ischemia. Troponins were negative 3 sets. Echo reports an EF of 50-55%. Basal inferior LV wall motion is hypokinetic and mid inferior LV wall motion hypokinetic. Also reports a small generalized pericardial effusion. Echo results and stress test results reviewed with cardiology. They have cleared him for discharge. MO was ruled out. Patient is to follow-up with Dr. Vizcaino at his scheduled appointment for evaluation of the right carotid artery stenosis. I performed an examination of the patient and discussed their management with the physician Cassandra Architect. I have reviewed the Physician Cassandra Architect's notes and agree with the documented findings and plan of care Patient Condition at Discharge: Stable Plan - Discharge Summary Discharge Rx Participant: No New Discharge Prescriptions: Continue Fluticasone Nasal [place] [Flonase Nasal [place]] 1 spray EA NOSTRIL DAILY Levothyroxine Sodium [Synthroid] 112 mcg PO DAILY Aspirin 81 mg PO DAILY #30 Clopidogrel [Plavix] 75 mg PO DAILY #30 tab Pantoprazole [Protonix] 40 mg PO AC-BRKFST #30 tab amLODIPine [Norvasc] 5 mg PO DAILY Atorvastatin [Lipitor] 40 mg PO HS Metoprolol Tartrate [Lopressor] 25 mg PO BID Sennosides-Docusate Sodium [Senokot-S] 2 tab PO HS Midodrine HCl [ProAmatine] 5 mg PO TID #0 Discharge Medication List Fluticasone Nasal [place] [Flonase Nasal [place]] 1 spray EA NOSTRIL DAILY 02/12/17 [History] Levothyroxine Sodium [Synthroid] 112 mcg PO DAILY 02/12/17 [History] Aspirin 81 mg PO DAILY #30 03/21/17 [Rx] Clopidogrel [Plavix] 75 mg PO DAILY #30 tab 03/21/17 [Rx] Pantoprazole [Protonix] 40 mg PO AC-BRKFST #30 tab 03/21/17 [Rx] Atorvastatin [Lipitor] 40 mg PO HS 07/02/17 [History] Metoprolol Tartrate [Lopressor] 25 mg PO BID 07/02/17 [History] Sennosides-Docusate Sodium [Senokot-S] 2 tab PO HS 07/02/17 [History] amLODIPine [Norvasc] 5 mg PO DAILY 07/02/17 [History] Midodrine HCl [ProAmatine] 5 mg PO TID #0 07/03/17 [Rx] Follow up Appointment(s)/Referral(s): Yaniv Spivey MD [STAFF PHYSICIAN] - 1 Week Kale Fischer MD [Primary Care Provider] - 1 Week Activity/Diet/Wound Care/Special Instructions: keep appointment with Dr. Spivey Diet: cardiac Activity: as tolerated Discharge Disposition: HOME SELF-CARE
== END 2017-07-03 14:32 | disposition home or self-care (01) ==
LOC: EC 09:48 → 3OBS 11:57
PROVIDERS: ADMIT Internal Medicine; ATTEND Internal Medicine
DX: R07.89 Other chest pain (principal); R06.02 Shortness of breath; I25.10 Atherosclerotic heart disease of native coronary artery without angina pectoris; I12.9 Hypertensive chronic kidney disease with stage 1 through stage 4 chronic kidney disease, or unspecified chronic kidney disease; N18.3 Chronic kidney disease, stage 3 (moderate); I65.22 Occlusion and stenosis of left carotid artery; I31.3 Pericardial effusion (noninflammatory); E78.5 Hyperlipidemia, unspecified; E03.9 Hypothyroidism, unspecified; H91.90 Unspecified hearing loss, unspecified ear; Z79.82 Long term (current) use of aspirin; Z79.51 Long term (current) use of inhaled steroids; Z79.899 Other long term (current) drug therapy; Z86.73 Personal history of transient ischemic attack (TIA), and cerebral infarction without residual deficits; Z85.818 Personal history of malignant neoplasm of other sites of lip, oral cavity, and pharynx; Z92.21 Personal history of antineoplastic chemotherapy; Z92.3 Personal history of irradiation; Z95.1 Presence of aortocoronary bypass graft; Z87.891 Personal history of nicotine dependence
CPT/HCPCS: 99285 ×2; 96372 ×2; 36415; 94760; 93005; 93017; 93306; 85379; 80061; 80053 ×2; 82550; 82553; 83735; 84484; 85025 ×2; 85610; 85730; 71020; 78452; G0378 ×2; A9500; J1644 ×2; J2785

== ENCOUNTER → 2017-09-17 | Outpatient (CLI) | payer OTHER ==
--- NOTE | 2017-09-17 15:30 | MR ---
MR brain without contrast HISTORY: Tinnitus, headaches Multiplanar multisequence imaging through the brain. Correlation to prior brain MRI 11/04/2014 Hyperintensity in the periventricular white matter on the right is noted, some local encephalomalacia is present measuring approximately 6 mm, overall hyperintensity in the deep white matter measures ap proximately 14 mm x 13 mm on axial image 21. Some scattered hyperintensities on inversion recovery an d T2-weighted sequences are present within the periventricular white matter as on prior. There is no hemorrhage or hydrocephalus. Cortical atrophy shows a similar appearance. Inflammatory changes are pr esent within the maxillary sinuses, ethmoid air cells. The corpus callosum, pituitary, cervical medul rosina junction, cerebellopontine angles are within normal limits. Inflammatory change present within t he mastoid air cells on the left is similar. There are normal vascular flow voids. The orbits show a symmetric and stable appearance. There is no restricted diffusion to suggest subacute ischemia. IMPRESSION: Findings likely due to chronic small vessel ischemic change, interval small focus of ence phalomalacia in the periventricular white matter in the right frontal lobe. Sinus disease. Correlate for mastoiditis as noted on prior exam.
== END | disposition home or self-care (01) ==
LOC: RADMRIMAIN 14:32
PROVIDERS: ATTEND Family Medicine
DX: H93.13 Tinnitus, bilateral (principal)
CPT/HCPCS: 70551

== ENCOUNTER 2017-09-19 12:16 | Emergency (ER) | payer OTHER ==
--- NOTE | 2017-09-19 14:40 | ED ---
General Adult HPI - General Chief complaint: Recheck/Abnormal Lab/Rx Stated complaint: Abnormal Labs, High Potassium Time Seen by Provider: 09/19/17 14:00 Source: patient, RN notes reviewed Mode of arrival: ambulatory Limitations: no limitations - History of Present Illness Initial comments: This is a 71-year-old male presents emergency department because he was told to come in because his potassium was elevated. Patient states he is completely asymptomatic. Patient states she's not had any issues with potassium in the past. Patient states he has some renal issues with a creatinine typically around 1.7. Patient denies any chest pain palpitations difficulty breathing shortness of breath per patient denies any recent fever chills or cough. Patient denies any abdominal pain patient denies nausea vomiting diarrhea. - Related Data Home Medications Medication Instructions Recorded Confirmed Fluticasone Nasal [place] [Flonase 1 spray EA NOSTRIL DAILY 02/12/17 09/19/17 Nasal [place]] Levothyroxine Sodium [Synthroid] 112 mcg PO DAILY 02/12/17 09/19/17 Metoprolol Tartrate [Lopressor] 25 mg PO BID 07/02/17 09/19/17 Sennosides-Docusate Sodium 2 tab PO HS 07/02/17 09/19/17 [Senokot-S] amLODIPine [Norvasc] 5 mg PO DAILY 07/02/17 09/19/17 Atorvastatin [Lipitor] 20 mg PO HS 07/30/17 09/19/17 Midodrine HCl [ProAmatine] 5 mg PO TID PRN 07/30/17 09/19/17 Previous Rx's Medication Instructions Recorded Aspirin 81 mg PO DAILY #30 03/21/17 Clopidogrel [Plavix] 75 mg PO DAILY #30 tab 03/21/17 Pantoprazole [Protonix] 40 mg PO AC-BRKFST #30 tab 03/21/17 Allergies Allergy/AdvReac Type Severity Reaction Status Date / Time No Known Allergies Allergy Verified 09/19/17 14:25 Review of Systems ROS Statement: Those systems with pertinent positive or pertinent negative responses have been documented in the HPI. ROS Other: All systems not noted in ROS Statement are negative. 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 History of Any Multi-Drug Resistant Organisms: None Reported Past Surgical History: Coronary Bypass/CABG, Heart Catheterization, Hernia Repair, Orthopedic Surgery Additional Past Surgical History / Comment(s): 02/2017 CABG-4 vessel, 2006 radical neck dissection for tonsillar cancer, R inguinal hernia repair, 3 sinus surgeries with benign polypectomy, colonoscopy, bilateral rotator cuff repairs. Past Anesthesia/Blood Transfusion Reactions: No Reported Reaction Past Psychological History: No Psychological Hx Reported Smoking Status: Former smoker Past Alcohol Use History: None Reported Past Drug Use History: None Reported - Past Family History Father Family Medical History: Cancer Additional Family Medical History / Comment(s): Father had lung cancer. He was a smoker. Mother Family Medical History: Congestive Heart Failure (CHF) General Exam - General Exam Comments Initial Comments: GENERAL: Patient is well-developed and well-nourished. Patient is nontoxic and well- hydrated and is in no acute distress. ENT: Neck is soft and supple. No significant lymphadenopathy is noted. Oropharynx is clear. Moist mucous membranes. Neck has full range of motion without eliciting any pain. EYES: The sclera were anicteric and conjunctiva were pink and moist. Extraocular movements were intact and pupils were equal round and reactive to light. Eyelids were unremarkable. PULMONARY: Unlabored respirations. Good breath sounds bilaterally. No audible rales rhonchi or wheezing was noted. CARDIOVASCULAR: There is a regular rate and rhythm without any murmurs gallops or rubs. ABDOMEN: Soft and nontender with normal bowel sounds. SKIN: Skin is clear with no lesions or rashes and otherwise unremarkable. NEUROLOGIC: Patient is alert and oriented x3. Cranial nerves II through XII are grossly intact. Motor and sensory are also intact. Normal speech, volume and content. Symmetrical smile. MUSCULOSKELETAL: Normal extremities with adequate strength and full range of motion. LYMPHATICS: No significant lymphadenopathy is noted PSYCHIATRIC: Normal psychiatric evaluation. Normal interpersonal interactions appears functionally intact in deals appropriately with others. No signs of depression. No signs of anxiety. Limitations: no limitations Course Vital Signs 09/19/17 09/19/17 13:03 16:00 Temperature 98.0 F 97.6 F Pulse Rate 72 78 Respiratory 20 18 Rate Blood Pressure 193/91 192/109 O2 Sat by Pulse 98 96 Oximetry Medical Decision Making - Medical Decision Making EKG shows a sinus rhythm at 71 bpm with occasional PAC VT interval is 162 QRS is 96 QT interval 392 QTC is 425. Patient's EKG shows no ST segment elevation or depression or T wave abnormalities are noted. On discharge patient's blood pressure was elevated so we gave the patient some hydralazine. Patient states he takes his next blood pressure med at 7:00 - Lab Data Result diagrams: 09/19/17 15:10 09/19/17 15:10 Lab Results 09/19/17 09/19/17 Range/Units 15:10 15:10 WBC 6.6 (3.8-10.6) k/uL RBC 4.97 (4.30-5.90) m/uL Hgb 14.8 (13.0-17.5) gm/dL Hct 44.8 (39.0-53.0) % MCV 90.0 (80.0-100.0) fL MCH 29.7 (25.0-35.0) pg MCHC 33.0 (31.0-37.0) g/dL RDW 14.4 (11.5-15.5) % Plt Count 183 (150-450) k/uL Neutrophils % 63 % Lymphocytes % 19 % Monocytes % 4 % Eosinophils % 11 % Basophils % 1 % Neutrophils # 4.2 (1.3-7.7) k/uL Lymphocytes # 1.3 (1.0-4.8) k/uL Monocytes # 0.3 (0-1.0) k/uL Eosinophils # 0.7 (0-0.7) k/uL Basophils # 0.1 (0-0.2) k/uL Sodium 139 (137-145) mmol/L Potassium 5.0 (3.5-5.1) mmol/L Chloride 103 (98-107) mmol/L Carbon Dioxide 23 (22-30) mmol/L Anion Gap 13 mmol/L BUN 23 H (9-20) mg/dL Creatinine 1.50 H (0.66-1.25) mg/dL Est GFR (MDRD) Af Amer 56 (>60 ml/min/1.73 sqM) Est GFR (MDRD) Non-Af 46 (>60 ml/min/1.73 sqM) Glucose 80 (74-99) mg/dL Calcium 10.3 H (8.4-10.2) mg/dL Total Bilirubin 0.9 (0.2-1.3) mg/dL AST 29 (17-59) U/L ALT 42 (21-72) U/L Alkaline Phosphatase 64 (38-126) U/L Total Protein 7.3 (6.3-8.2) g/dL Albumin 4.8 (3.5-5.0) g/dL Disposition Clinical Impression: Laboratory test, Hypertension Disposition: HOME SELF-CARE Condition: Good Referrals: Oneal Martinez DO [Primary Care Provider] - 1-2 days Time of Disposition: 15:40
[2017-09-19 15:24] LABS: Basophils # (A) 0.1 k/uL (0-0.2); Basophils % (A) 1 %; Eosinophils # (A) 0.7 k/uL (0-0.7); Eosinophils % (A) 11 %; HCT 44.8 % (39.0-53.0); HGB 14.8 gm/dL (13.0-17.5); Lymphocytes # (A) 1.3 k/uL (1.0-4.8); Lymphocytes % (A) 19 %; MCH 29.7 pg (25.0-35.0); Mean Platelet Volume 7.3; Monocytes # (A) 0.3 k/uL (0-1.0); Monocytes % (A) 4 %; Neutrophils # (A) 4.2 k/uL (1.3-7.7); Neutrophils % (A) 63 %; Platelet Count 183 k/uL (150-450); RBC 4.97 m/uL (4.30-5.90); RDW 14.4 % (11.5-15.5); WBC 6.6 k/uL (3.8-10.6)
[2017-09-19 15:34] LABS: Albumin 4.8 g/dL (3.5-5.0); Calcium 10.3 mg/dL (8.4-10.2); Total Bilirubin 0.9 mg/dL (0.2-1.3); Total Protein 7.3 g/dL (6.3-8.2)
[2017-09-19 16:01] VITALS: RESP 18; TEMP 97.6
[2017-09-19] MEDS ORDERED: hydrALAZINE HCL 20 MG/ML 1 ML VIAL IVP STA (16:06)
[2017-09-19 16:34] VITALS: BP 160/90; PULSE 82
== END 2017-09-19 16:34 | disposition home or self-care (01) ==
LOC: EC 12:16
DX: R79.89 Other specified abnormal findings of blood chemistry (principal); I12.9 Hypertensive chronic kidney disease with stage 1 through stage 4 chronic kidney disease, or unspecified chronic kidney disease; N18.9 Chronic kidney disease, unspecified; I49.1 Atrial premature depolarization; I25.10 Atherosclerotic heart disease of native coronary artery without angina pectoris; E78.5 Hyperlipidemia, unspecified; E07.9 Disorder of thyroid, unspecified; Z85.818 Personal history of malignant neoplasm of other sites of lip, oral cavity, and pharynx; Z87.891 Personal history of nicotine dependence; Z79.52 Long term (current) use of systemic steroids; Z79.899 Other long term (current) drug therapy
CPT/HCPCS: 36415; 93005; 80053; 85025; 99285; 96374; J0360

== ENCOUNTER → 2017-11-30 | Outpatient (CLI) | payer OTHER ==
--- NOTE | 2017-11-30 14:27 | FL ---
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 TECHNIQUE: Deglutition study is performed utilizing thin liquid barium, honey and nectar thick liqui d barium, barium thick applesauce, and barium coated cracker. Total fluoroscopy time: 2 minutes 51 seconds. Total images: 845 COMPARISON: None. FINDINGS: The oral and pharyngeal phases show satisfactory initiation with all modalities tested. There is sile nt deep penetration to the vocal folds with both thin liquid and nectar consistency. No aspiration is seen during the course of the exam. This is not improved with chin tuck maneuver. There is poor brunilda lity causing prominent residuals requiring repeated swallows. Carotid stent is present. IMPRESSION: 1. Silent deep penetration to the vocal cords with thin liquid and nectar consistency. This does not improve with chin tuck maneuver. No aspiration. 2. Poor motility causing residuals requiring repeated swallows. 3. Normal deglutition study. Please refer to speech therapist notes for further details if necessary .
== END | disposition home or self-care (01) ==
LOC: RADFLMAIN 11:14
PROVIDERS: ATTEND Otolaryngology
DX: R13.10 Dysphagia, unspecified (principal)
CPT/HCPCS: 74230

== ENCOUNTER → 2017-12-03 | Outpatient (CLI) | payer OTHER ==
--- NOTE | 2017-12-03 13:07 | XR ---
EXAMINATION TYPE: XR chest 2V DATE OF EXAM: 12/03/2017 COMPARISON: 07/02/2017 HISTORY: Shortness of breath TECHNIQUE: Frontal and lateral views of the chest are obtained. FINDINGS: Scattered senescent parenchymal changes noted. Hyperinflation compatible with COPD. No evidence for infiltrate. No evidence for atelectasis. Heart size is stable. Mediastinal structures are stable and grossly unremarkable. No evidence for hilar prominence. Degenerative changes dorsal spine. IMPRESSION: 1. No evidence for acute pulmonary disease.
== END | disposition home or self-care (01) ==
LOC: RADXRMAIN 12:43
PROVIDERS: ATTEND Internal Medicine
DX: R05 Cough (principal); R06.02 Shortness of breath
CPT/HCPCS: 71046

== ENCOUNTER 2018-08-06 11:43 | Observation (INO) | payer MEDICARE, OTHER ==
[2018-08-06 12:29] VITALS: RESP 18
--- NOTE | 2018-08-06 14:12 | P.HPIM ---
History of Present Illness H&P Date: 08/06/18 Chief Complaint: Chest pain and shortness of breath This is a 72-year-old male patient who presented to his primary care provider with complaints of increased shortness of breath has been occurring for 3-4 weeks along with chest discomfort. Patient states that in the summer he started to have increased cough with sputum production and was [facility] Patient states he did get improvement with this cough but shortness of breath started occurring about 3-4 weeks ago. Patient is also complaining of intermittent chest discomfort that has also been occurring over the past few weeks. Patient does have a known past medical history of coronary artery bypass graft surgery with Dr. Alicea in February 2017. Patient also follows with Dr. Sanna Avila for cardiology. Additional medical history includes CVA, renal disease which he follows with Dr. Flores tonsillar cancer in 2005 with chemo radiation and surgery. Additional medical history includes hyperlipidemia, hypertension, thyroid disorder, hearing disorder and right carotid stent placement 1 year ago. Patient also stating he' s lost proximally 15 pounds over the past 2 months. Patient also states he started experiencing left flank pain yesterday after he was constipated for a couple days and then had bowel movement with Fleet enema. At this time will order CBC, CMP, mag, troponins and cardiac profile. EKG will be ordered. Will consult cardiology services. Will order chest x-ray. Will Order urinary analysis to rule out UTI for left flank pain. Review of Systems Please refer to HPI otherwise unremarkable Past Medical History Past Medical History: Coronary Artery Disease (CAD), Cancer, Chest Pain / Angina , CVA/TIA, GERD/Reflux, Hearing Disorder / Deafness, Hyperlipidemia, Hypertension, Renal Disease, Syncope, Thyroid Disorder, Vascular Disorder Additional Past Medical History / Comment(s): 2006 tonsillar cancer with surgery /chemo/radiation, dysphagia, bilateral caratid artery disease, CVA per cat scan , CKD, CAD with recent CABG and post op anemia requiring blood transfusion, diverticular dx, L inguinal hernia, [place] bilaterally with aides. History of Any Multi-Drug Resistant Organisms: None Reported Past Surgical History: Coronary Bypass/CABG, Heart Catheterization, Hernia Repair, Orthopedic Surgery Additional Past Surgical History / Comment(s): 02/2017 CABG-4 vessel, 2006 radical neck dissection for tonsillar cancer, R inguinal hernia repair, 3 sinus surgeries with benign polypectomy, colonoscopy, bilateral rotator cuff repairs. Past Anesthesia/Blood Transfusion Reactions: No Reported Reaction Past Psychological History: No Psychological Hx Reported Smoking Status: Former smoker Past Alcohol Use History: None Reported Past Drug Use History: None Reported - Past Family History Father Family Medical History: Cancer Additional Family Medical History / Comment(s): Father had lung cancer. He was a smoker. Mother Family Medical History: Congestive Heart Failure (CHF) Medications and Allergies Home Medications Medication Instructions Recorded Confirmed Type Fluticasone Nasal [place] [Flonase 1 spray EA NOSTRIL DAILY 02/12/17 09/19/17 History Nasal [place]] Levothyroxine Sodium [Synthroid] 112 mcg PO DAILY 02/12/17 09/19/17 History Aspirin 81 mg PO DAILY #30 03/21/17 09/19/17 Rx Clopidogrel [Plavix] 75 mg PO DAILY #30 tab 03/21/17 09/19/17 Rx Pantoprazole [Protonix] 40 mg PO AC-BRKFST #30 tab 03/21/17 09/19/17 Rx Metoprolol Tartrate [Lopressor] 25 mg PO BID 07/02/17 09/19/17 History Sennosides-Docusate Sodium 2 tab PO HS 07/02/17 09/19/17 History [Senokot-S] amLODIPine [Norvasc] 5 mg PO DAILY 07/02/17 09/19/17 History Atorvastatin [Lipitor] 20 mg PO HS 07/30/17 09/19/17 History Midodrine HCl [ProAmatine] 5 mg PO TID PRN 07/30/17 09/19/17 History Allergies Allergy/AdvReac Type Severity Reaction Status Date / Time No Known Allergies Allergy Verified 09/19/17 14:25 Physical Exam Vitals: Vital Signs Temp Pulse Resp BP Pulse Ox 08/06/18 12:27 97.6 F 75 18 172/85 97 Intake and Output 08/05/18 08/06/18 08/06/18 22:59 06:59 14:59 Other: Weight 67 kg Head normocephalic Neck supple Lungs clear to auscultation bilaterally no wheezing or crackles Heart regular rate and rhythm S1-S2, no rub or gallop Abdomen is soft nontender nondistended positive bowel sounds no hepatosplenomegaly Extremities no edema Neuro alert and orientated to 3 Assessment and Plan Assessment: 1. Shortness of breath. Chest x-ray will be ordered 2. Chest pain. EKG, cardiac profile, troponins and cardiology consult ordered 3. Left flank pain. Urinary analysis ordered 4. Recent weight loss of 15 pounds over the past 2 months 5. History of coronary artery bypass graft surgery in February 2017 patient maintained on Plavix and aspirin 6. History of tonsillar cancer in 2005 chemo radiation and surgery 7. History of right carotid stent 1 year ago 8. History of CVA 9. History of renal disease. Patient states he follows with Dr. Flores. Baseline labs have been ordered 10. History of hyperlipidemia 11. History of essential hypertension 12. History of hypothyroidism 13. Constipation. Resolved at this time. Patient states he used fleet enema last night At this time will order EKG, troponins, cardiac profile, CMP, CBC, magnesium and urinary analysis. Chest x-ray ordered Cardiology consult placed Time with Patient: Greater than 30 (Greater than 60% of the total time spent in counseling and coordination of care. I performed an examination of the patient and discussed their management with the Nurse Practitioner. I have reviewed the Nurse Practitioner's notes and agree with the documented findings and plan of care)
--- NOTE | 2018-08-06 14:45 | XR ---
EXAMINATION TYPE: XR chest 2V DATE OF EXAM: 08/06/2018 COMPARISON: Chest x-ray December 03, 2017 HISTORY: Left-sided chest pain and shortness of breath. TECHNIQUE: Frontal and lateral views of the chest are obtained. FINDINGS: Moderate biapical pleural/parenchymal scarring is seen. Post CABG changes with mediastinal clips and sternal wires is redemonstrated. There is chronic emphysematous change with retrocardiac op acity redemonstrated. The cardiac silhouette size remains within normal limits with atherosclerotic thoracic aorta. Surgical clips epigastric region are seen. Subluxation left glenohumeral joint is red emonstrated. IMPRESSION: Chronic emphysematous change with chronic retrocardiac opacity could reflect scarring. N o significant change from most recent chest x-ray. Consider CT correlation, no recent chest CT noted at this institution.
[2018-08-06 15:11] LABS: Basophils % (A) 0 %; Eosinophils # (A) 1.3 k/uL (0-0.7); Eosinophils % (A) 13 %; HCT 40.8 % (39.0-53.0); HGB 13.4 gm/dL (13.0-17.5); Lymphocytes # (A) 1.3 k/uL (1.0-4.8); Lymphocytes % (A) 12 %; MCH 28.8 pg (25.0-35.0); MCHC 32.9 g/dL (31.0-37.0); MCV 87.4 fL (80.0-100.0); Mean Platelet Volume 6.6; Monocytes # (A) 0.5 k/uL (0-1.0); Monocytes % (A) 5 %; Neutrophils # (A) 6.9 k/uL (1.3-7.7); Neutrophils % (A) 68 %; Platelet Count 206 k/uL (150-450); RBC 4.67 m/uL (4.30-5.90); WBC 10.2 k/uL (3.8-10.6)
[2018-08-06 15:17] LABS: Appearance,Urine Clear (Clear); Bilirubin,Urine Negative (Negative); Blood,Urine Negative (Negative); Color,Urine Yellow; Glucose,Urine (UA) Negative (Negative); Ketones,Urine Trace (Negative); Leukocyte Esterase,Urine Negative (Negative); Nitrite,Urine Negative (Negative); Protein,Urine Trace (Negative); Specific Gravity,Urine 1.012 (1.001-1.035); Urobilinogen,Urine <2.0 mg/dL (<2.0)
--- NOTE | 2018-08-06 15:26 | P.CRDCN ---
History of Present Illness History of present illness: This is a pleasant 72-year-old male past medical history significant for coronary artery disease status post bypass grafting with a CASTELLANOS to LAD, SVG to diagonal, SVG to OM and SVG to distal RCA, he also has carotid artery disease status post stenting of the right carotid artery July 2017 with evidence of significant stenosis noted in the left carotid artery and recent CT of the neck, hypertension, dyslipidemia and former nicotine dependence. He follows with Dr. LUIGI Avila in the office. We've been seen in consultation for chest pain. He states starting about April he started with a persistent cough he was bringing up brownish yellow phlegm at that time. He went to the [facility] and was started on a course of antibiotics. He went through 2 rounds of antibiotics and did start to feel somewhat better although his cough seemed to come back after couple weeks. He has persistently had this cough since that time. Starting a few days ago he felt a pain in the left precordial region associated with his cough and every time he tried to take a deep breath. He states his breathing has been increasingly getting worse since April as well. He denies. Orthopnea although he states if he were to get up and walk up and down the halls he would become extremely short of breath. He states he has never seen a hot repairman or been diagnosed with COPD in the past. He states he quit smoking in 1984. He is seen and examined laying flat in bed resting comfortably with his at the bedside. He is continuing to experience chest discomfort when he coughs or takes in a deep breath. He denies any dizziness, palpitations, nausea, vomiting or diaphoresis. Chest x-ray reveals evidence of chronic asthmatic change with chronic retrocardiac opacity could be reflective of scarring with no significant change from most recent chest x-ray. Laboratory data reviewed, WBC 10.2, bun 13.4, platelets 26. This is all the lip cellulitis available at the time of my examination. Current cardiac medications include aspirin 81 mg daily, atorvastatin 20 mg daily, Plavix 75 mg daily, Lopressor 25 mg twice a day and amlodipine 5 mg daily. Most recent echocardiogram performed June 2017 reveals preserved left ventricular systolic function with low-normal ejection fraction 50-55%, basal inferior and mid inferior LV wall motion hypokinesia. At the time of my exam: CONSTITUTIONAL: Denies fever. Denies chills. EYES: Denies blurred vision. Denies vision changes. Denies eye pain. EARS, NOSE, MOUTH & THROAT: Denies headache. Denies sore throat. Denies ear pain. CARDIOVASCULAR: Complains of pleuritic chest pain. Complains of shortness of breath. Denies orthopnea. Denies PND. Denies palpitations. RESPIRATORY: Complains of productive cough. GASTROINTESTINAL: Denies abdominal pain. Denies diarrhea. Denies constipation. Denies nausea. Denies vomiting. MUSCULOSKELETAL: Denies myalgias. INTEGUMENTARY: Denies pruitis. Denies rash. NEUROLOGIC: Denies numbness. Denies tingling. Denies weakness. PSYCHIATRIC: Denies anxiety. Denies depression. ENDOCRINE: Denies fatigue. Denies weight change. Denies polydipsia. Denies polyurina. GENITOURINARY: Denies burning, hematuria or urgency with micturation. HEMATOLOGIC: Denies history of anemia. Denies bleeding. Blood pressure 172/85 heart rate 75 afebrile maintaining oxygen saturation on room air GENERAL: This is a 72-year-old male in no apparent distress at the time of my examination. HEENT: Head is atraumatic, normocephalic. Pupils are equal, round. Sclerae anicteric. Conjunctivae are clear. Mucous membranes of the mouth are moist. Neck is supple. There is no jugular venous distention. Right carotid bruit is heard, no bruit on the left. LUNGS: Clear to auscultation no wheezes, rales or rhonchi. No chest wall tenderness is noted on palpation or with deep breathing. Diminished bilaterally. HEART: Regular rate and rhythm without murmurs, rubs or gallops. S1 and S2 heard. ABDOMEN: Soft, nontender. Bowel sounds are heard. No organomegaly noted. EXTREMITIES: No evidence of peripheral edema and no calf tenderness noted. VASCULAR: Radial and dorsalis pedis pulses palpated, no evidence of clubbing. NEUROLOGIC: Patient is awake, alert and oriented x3. ASSESSMENT Pleuritic chest pain History of coronary artery disease status post bypass grafting Hypertension Dyslipidemia History of bilateral carotid artery disease status post stenting of the right July 2017 Chronic kidney disease History of former nicotine dependence PLAN Obtain 2-D echocardiogram and Doppler study to assess cardiac structure and function. Obtain EKG. Check serial cardiac enzymes to rule out an acute coronary event. Check NTproBNP , ESR and CRP. Obtain CT of the chest without contrast. We will continue to follow and make recommendations accordingly. Thank you kindly for this consultation. Nurse Practitioner note has been reviewed, I agree with a documented findings and plan of care. Patient was seen and examined. 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 History of Any Multi-Drug Resistant Organisms: None Reported Past Surgical History: Coronary Bypass/CABG, Heart Catheterization, Hernia Repair, Orthopedic Surgery Additional Past Surgical History / Comment(s): 02/2017 CABG-4 vessel, angiograms , R internal caratid stented, 2005 radical neck dissection for pharyngeal cancer , L/R inguinal hernia repair, 3 sinus surgeries with benign polypectomy, colonoscopy, bilateral rotator cuff repairs. Past Anesthesia/Blood Transfusion Reactions: No Reported Reaction Smoking Status: Former smoker - Past Family History Father Family Medical History: Cancer Additional Family Medical History / Comment(s): Father had lung cancer. He was a smoker. Mother Family Medical History: Congestive Heart Failure (CHF) Medications and Allergies Home Medications Medication Instructions Recorded Confirmed Type Fluticasone Nasal [place] [Flonase 1 spray EA NOSTRIL DAILY 02/12/17 08/06/18 History Nasal [place]] Levothyroxine Sodium [Synthroid] 112 mcg PO DAILY 02/12/17 08/06/18 History Aspirin 81 mg PO DAILY #30 03/21/17 08/06/18 Rx Clopidogrel [Plavix] 75 mg PO DAILY #30 tab 03/21/17 08/06/18 Rx Metoprolol Tartrate [Lopressor] 25 mg PO BID 07/02/17 08/06/18 History amLODIPine [Norvasc] 5 mg PO DAILY 07/02/17 08/06/18 History Atorvastatin [Lipitor] 20 mg PO HS 07/30/17 08/06/18 History Tamsulosin [Flomax] 0.4 mg PO HS 08/06/18 08/06/18 History Allergies Allergy/AdvReac Type Severity Reaction Status Date / Time No Known Allergies Allergy Verified 08/06/18 13:47 Physical Exam Vitals: Vital Signs Temp Pulse Resp BP Pulse Ox 08/06/18 12:27 97.6 F 75 18 172/85 97 Intake and Output 08/06/18 08/06/18 08/06/18 06:59 14:59 22:59 Intake Total 700 Balance 700 Intake: Oral 700 Other: Weight 67 kg Results 08/06/18 14:17 CBC 08/06/18 Range/Units 14:17 WBC 10.2 (3.8-10.6) k/uL RBC 4.67 (4.30-5.90) m/uL Hgb 13.4 (13.0-17.5) gm/dL Hct 40.8 (39.0-53.0) % Plt Count 206 (150-450) k/uL Current Medications Generic Name Dose Route Start Last Admin Trade Name Freq PRN Reason Stop Dose Admin Amlodipine Besylate 5 mg 08/07/18 09:00 Norvasc PO DAILY [facility] Aspirin 81 mg 08/07/18 09:00 Aspirin PO DAILY [facility] Atorvastatin Calcium 20 mg 08/06/18 21:00 Lipitor PO HS [facility] Clopidogrel Bisulfate 75 mg 08/07/18 09:00 Plavix PO DAILY [facility] Fluticasone Propionate 1 spray 08/07/18 09:00 Flonase Nasal [place] EA NOSTRIL DAILY [facility] Levothyroxine Sodium 112 mcg 08/07/18 06:30 Synthroid PO DAILY@0630 [facility] Metoprolol Tartrate 25 mg 08/06/18 21:00 Lopressor PO BID [facility] Tamsulosin HCl 0.4 mg 08/06/18 21:00 Flomax PO HS [facility] Intake and Output 08/06/18 08/06/18 08/06/18 06:59 14:59 22:59 Intake Total 700 Balance 700 Intake: Oral 700 Other: Weight 67 kg Patient Weight 08/07/18 06:59 Weight 67 kg 08/06/18 14:17
[2018-08-06 15:39] LABS: Creatine Kinase MB 0.5 ng/mL (0.0-2.4)
[2018-08-06 15:50] LABS: Albumin 3.9 g/dL (3.5-5.0); Calcium 9.4 mg/dL (8.4-10.2); Potassium 4.9 mmol/L (3.5-5.1); Total Bilirubin 0.8 mg/dL (0.2-1.3); Total Protein 6.4 g/dL (6.3-8.2)
--- NOTE | 2018-08-06 16:29 | CT ---
EXAMINATION TYPE: CT chest wo con DATE OF EXAM: 08/06/2018 COMPARISON: CTA neck 07/03/2018, 12/23/2009. HISTORY: Cough and chest pain history of laryngeal carcinoma CT DLP: 280.1 mGycm, Automated exposure control for dose reduction was used. CONTRAST: Performed injected with 0 mL of Isovue 300. TECHNIQUE: Axial images were obtained at 5 mm thick sections. Reconstructed images are reviewed on [employer] computer in the coronal plane. FINDINGS: Thyroid is not visualized. There is thickening and consolidation in the medial aspects of the bilateral lung apices. Post radiat ion changes, pneumonia, pulmonary fibrosis, neoplasm should be considered. The findings appear stable from previous exam. Finding has been present since 2009 suggesting chronic etiologies most likely wi thin the differential. There is a consolidation posterior to the aorta. Minimal pleural effusion may be present on the left. No enlarged mediastinal or hilar adenopathy is evident. A few small shotty lymph nodes are present. The ascending aorta diameter at the level of the main pulmonary artery is 4.2 cm. The main pulmonar y artery diameter at the bifurcation is 2.[address] sections are obtained through the upper abdomen. Abdomen is essentially unremarkable. IMPRESSIONS: 1. Medial posterior left lower lobe consolidation. Correlate for atelectasis. Underlying mass is not excluded. Small amount fluid may be adjacent. This is new from 2009. 2. Bilateral apical consolidations are most likely post radiation changes.
[2018-08-06] MEDS: ACETAMINOPHEN TAB 325 MG TAB PO PRN (17:44)
[2018-08-06] MEDS ORDERED: TAMSULOSIN 0.4 MG CAP.ER.24H PO SCH (21:00)
[2018-08-06] MEDS ORDERED: ATORVASTATIN 20 MG TAB PO SCH (21:00)
[2018-08-06 21:42] LABS: Creatine Kinase MB 0.4 ng/mL (0.0-2.4)
[2018-08-06] MEDS: METOPROLOL TARTRATE 25 MG TAB PO SCH (22:03)
[2018-08-07 04:38] LABS: Creatine Kinase 52 U/L (55-170)
[2018-08-07 04:40] LABS: Albumin 3.5 g/dL (3.5-5.0); Calcium 9.1 mg/dL (8.4-10.2); Magnesium 1.9 mg/dL (1.6-2.3); Potassium 4.4 mmol/L (3.5-5.1); Total Bilirubin 0.9 mg/dL (0.2-1.3); Total Protein 5.8 g/dL (6.3-8.2)
[2018-08-07 04:49] LABS: Creatine Kinase MB 0.4 ng/mL (0.0-2.4); Troponin I <0.012 ng/mL (0.000-0.034)
[2018-08-07 05:49] LABS: Basophils # (A) 0.1 k/uL (0-0.2); Basophils % (A) 1 %; Eosinophils # (A) 1.3 k/uL (0-0.7); Eosinophils % (A) 13 %; HCT 39.8 % (39.0-53.0); HGB 13.1 gm/dL (13.0-17.5); Lymphocytes # (A) 1.4 k/uL (1.0-4.8); Lymphocytes % (A) 14 %; MCH 29.3 pg (25.0-35.0); MCHC 32.8 g/dL (31.0-37.0); MCV 89.1 fL (80.0-100.0); Mean Platelet Volume 7.1; Monocytes # (A) 0.7 k/uL (0-1.0); Monocytes % (A) 7 %; Neutrophils # (A) 6.1 k/uL (1.3-7.7); Neutrophils % (A) 63 %; Platelet Count 198 k/uL (150-450); RBC 4.46 m/uL (4.30-5.90); WBC 9.7 k/uL (3.8-10.6)
[2018-08-07] MEDS ORDERED: LEVOTHYROXINE 112 MCG TAB PO SCH (06:30)
--- NOTE | 2018-08-07 07:35 | PN ---
PROGRESS NOTE Mr. Burgos is 72-year-old male with a known history of coronary artery disease, status post coronary artery bypass grafting, followed by Dr. Avila on a regular basis, who presented with symptoms of chest discomfort. Patient has been having cough recently, has been on antibiotics. He had a sputum that was dark. The cough is better, but he is complaining of discomfort in the left side. The discomfort is worse when he takes a deep breath or he coughs. Patient has a remote history of smoking. He denies any peripheral edema. No dizziness. No palpitation. No syncope. He has no history of congestive heart failure. He feels the discomfort he is discomfort from the discomfort he had at the time of his cardiac event. He has a history of peripheral vascular disease, status post carotid stenting done about a year ago and has a prior history of stroke. MEDICATIONS: Include aspirin, Lipitor 20 mg daily, Plavix 75 mg daily, amlodipine 5 mg daily, and Toprol tartrate 25 mg twice a day. PHYSICAL EXAMINATION: Blood pressure 107/60 with a heart in the 60s. LUNGS: Clear. HEART: Regular rate and rhythm, S1, S2. No S3 with systolic murmur at the base. No diastolic murmur, no rub. ABDOMEN: Soft, nontender. EXTREMITIES: No edema. Chest wall with mild chest wall tenderness. LAB DATA: Revealed a troponin less than 0.012 for three samples. BUN and creatinine 29 and 1.4, potassium 4.4, hemoglobin is 13.1. IMPRESSION: 1. Chest discomfort, appears to be atypical for ischemic heart disease, probably noncardiac, appears to be musculoskeletal. 2. History of recent upper respiratory infection. 3. History of coronary artery disease, status post coronary artery bypass grafting with no evidence of recurrent angina factors. 4. Abnormal CT scan with a medium posterior left lower lobe consolidation with an underlying mass could not be excluded. 5. Chronic kidney disease. 6. Hypertension. 7. Hyperlipidemia. RECOMMENDATION: From the cardiac standpoint, I will review the results of his echocardiogram. I will increase the dose of his statin in view of his prior history of cardiac disease and carotid stenting. I do not believe that there is any evidence to suggest ischemic event at this point. Thank you for this consult. MMODL / IJN: [id number] /
[2018-08-07] MEDS: METOPROLOL TARTRATE 25 MG TAB PO SCH (08:25)
[2018-08-07] MEDS ORDERED: CLOPIDOGREL 75 MG TAB PO SCH (09:00)
[2018-08-07] MEDS ORDERED: FLUTICASONE 50MCG/SPRAY NASAL 16GM EA NOSTRIL SCH (09:00)
[2018-08-07] MEDS ORDERED: amLODIPine 5 MG TAB PO SCH (09:00)
[2018-08-07] MEDS ORDERED: ASPIRIN 81 MG PO SCH (09:00)
[2018-08-07] MEDS ORDERED: AZITHROMYCIN 500 MG in SODIUM CHLORIDE 0.9% 250 ML IVPB SCH (10:00)
[2018-08-07] MEDS: ACETAMINOPHEN TAB 325 MG TAB PO PRN (10:12)
[2018-08-07 11:40] VITALS: BP 115/68; PULSE 68; TEMP 98.3
--- NOTE | 2018-08-07 12:27 | P.CNPUL ---
History of Present Illness Consult date: 08/07/18 Requesting physician: Kale Fischer Reason for consult: dyspnea, cough, chest pain Chief complaint: Persistent cough, dyspnea, phlegm production, chest pain History of present illness: This is 72-year-old white male patient of Dr. Fischer who came into the emergency department on 08/06/2018 with complaints of increased shortness of breath, left anterior and left posterior chest discomfort worse with coughing, persistent cough with production of brownish phlegm. Patient's cough started a few months ago in [place] , and thought he had a viral illness. He developed a persistent cough, for which she was treated with 2 rounds of antibiotics with reoccurrence of his symptoms. Patient has been having intermittent left-sided chest discomfort, exacerbated by coughing. Denied any fever or chills, hemoptysis. Patient did have him weight loss in the last couple months of approximately 15 pounds. On presentation he also had some left flank pain. History of stage IV throat cancer, status post radical neck dissection for tonsillar cancer, followed by chemoradiation in 2005. History of CAD with previous bypass grafting in February 2017, carotid artery disease with previous stenting of the right carotid a year ago, CVA/TIA, GERD/reflux, hypertension, hyperlipidemia, chronic kidney disease , hypothyroidism. Chest x-ray showed chronic emphysematous change with chronic retrocardiac opacity reflecting scarring. CT chest showed medial posterior left lower lobe consolidation likely related to atelectasis, mass could not be excluded. Bilateral apical consolidation related to postradiation changes. Lab work was reviewed, showed a CBC at 10.2, hemoglobin 13.4, electrolytes were within normal limits, B1 is 28 and creatinine was 1.47. ProBNP was within normal limits at 288, troponins were negative 3, CRP 47.8, urinalysis showed trace protein and ketones, no infection. Vitals signs have been stable, patient is on room air with a pulse ox of 96%, afebrile. We are seeing this patient in consultation in regards to abnormal finding seen on the CT chest likely related to medial left lower lobe collapse, atelectasis, rule out underlying bronchogenic carcinoma or pneumonia. Review of Systems All systems: negative Constitutional: Denies chills, Denies fever Eyes: denies blurred vision, denies pain Ears, nose, mouth and throat: Denies headache, Denies sore throat Cardiovascular: Denies chest pain, Denies shortness of breath Respiratory: Reports cough with sputum, Reports dyspnea, Denies cough Gastrointestinal: Denies abdominal pain, Denies diarrhea, Denies nausea, Denies vomiting Musculoskeletal: Denies myalgias Integumentary: Denies pruritus, Denies rash Neurological: Denies numbness, Denies weakness Psychiatric: Denies anxiety, Denies depression Endocrine: Denies fatigue, Denies weight change Past Medical History Past Medical History: Coronary Artery Disease (CAD), Cancer, Chest Pain / Angina , CVA/TIA, GERD/Reflux, Hearing Disorder / Deafness, Hyperlipidemia, Hypertension, Renal Disease, Syncope, Thyroid Disorder, Vascular Disorder Additional Past Medical History / Comment(s): 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 History of Any Multi-Drug Resistant Organisms: None Reported Past Surgical History: Coronary Bypass/CABG, Heart Catheterization, Hernia Repair, Orthopedic Surgery Additional Past Surgical History / Comment(s): 02/2017 CABG-4 vessel, angiograms , R internal caratid stented, 2005 radical neck dissection for pharyngeal cancer , L/R inguinal hernia repair, 3 sinus surgeries with benign polypectomy, colonoscopy, bilateral rotator cuff repairs. Past Anesthesia/Blood Transfusion Reactions: No Reported Reaction Smoking Status: Former smoker - Past Family History Father Family Medical History: Cancer Additional Family Medical History / Comment(s): Father had lung cancer. He was a smoker. Mother Family Medical History: Congestive Heart Failure (CHF) Medications and Allergies Home Medications Medication Instructions Recorded Confirmed Type Fluticasone Nasal Perry [Flonase 1 spray EA NOSTRIL DAILY 02/12/17 08/06/18 History Nasal Perry] Levothyroxine Sodium [Synthroid] 112 mcg PO DAILY 02/12/17 08/06/18 History Aspirin 81 mg PO DAILY #30 03/21/17 08/06/18 Rx Clopidogrel [Plavix] 75 mg PO DAILY #30 tab 03/21/17 08/06/18 Rx Metoprolol Tartrate [Lopressor] 25 mg PO BID 07/02/17 08/06/18 History amLODIPine [Norvasc] 5 mg PO DAILY 07/02/17 08/06/18 History Atorvastatin [Lipitor] 20 mg PO HS 07/30/17 08/06/18 History Tamsulosin [Flomax] 0.4 mg PO HS 08/06/18 08/06/18 History Allergies Allergy/AdvReac Type Severity Reaction Status Date / Time No Known Allergies Allergy Verified 08/06/18 13:47 Physical Exam Vitals: Vital Signs Temp Pulse Resp BP Pulse Ox 08/07/18 11:39 98.3 F 68 18 115/68 96 08/07/18 08:00 86 18 08/07/18 07:15 98.4 F 86 18 117/77 96 08/07/18 03:45 98.4 F 69 18 107/63 94 L 08/07/18 03:12 18 08/06/18 23:57 18 08/06/18 23:17 98.3 F 65 18 133/74 94 L 08/06/18 20:00 18 08/06/18 19:30 98.1 F 82 18 128/77 95 08/06/18 15:35 99.1 F 77 18 90/54 93 L 08/06/18 12:27 97.6 F 75 18 172/85 97 Intake and Output 08/06/18 08/07/18 08/07/18 22:59 06:59 14:59 Intake Total 240 440 Balance 240 440 Intake: Oral 240 240 Other 200 Other: Voiding Method Toilet Toilet Toilet # Voids 2 2 GENERAL EXAM: Alert, pleasant 72-year-old white male comfortable in no apparent distress. HEAD: Normocephalic/atraumatic. EYES: Normal reaction of pupils, equal size. Conjunctiva pink, sclera white. NOSE: Clear with pink turbinates. THROAT: No erythema or exudates. NECK: No masses, no JVD, no thyroid enlargement, no adenopathy. CHEST: No chest wall deformity. Symmetrical expansion. LUNGS: Equal air entry with no some limited crackles at the bases CVS: Regular rate and rhythm, normal S1 and S2, no gallops, no murmurs, no rubs ABDOMEN: Soft, nontender. No hepatosplenomegaly, normal bowel sounds, no guarding or rigidity. EXTREMITIES: No clubbing, no edema, no cyanosis, 2+ pulses and upper and lower extremities. MUSCULOSKELETAL: Muscle strength and tone normal. SPINE: No scoliosis or deformity SKIN: No rashes CENTRAL NERVOUS SYSTEM: Alert and oriented -3. No focal deficits, tone is normal in all 4 extremities. PSYCHIATRIC: Alert and oriented -3. Appropriate affect. Intact judgment and insight. Results - Laboratory Findings CBC and BMP: 08/07/18 03:39 08/07/18 03:39 Abnormal lab findings: Abnormal Labs 08/06/18 08/06/18 08/06/18 14:17 14:17 14:17 Eosinophils # 1.3 H Sodium BUN 28 H Creatinine 1.47 H Glucose 112 H Total Creatine Kinase C-Reactive Protein 47.8 H Total Protein Urine Protein Urine Ketones 08/06/18 08/07/18 08/07/18 14:44 03:39 03:39 Eosinophils # 1.3 H Sodium BUN Creatinine Glucose Total Creatine Kinase 52 L C-Reactive Protein Total Protein Urine Protein Trace H Urine Ketones Trace H 08/07/18 03:39 Eosinophils # Sodium 135 L BUN 29 H Creatinine 1.40 H Glucose Total Creatine Kinase C-Reactive Protein Total Protein 5.8 L Urine Protein Urine Ketones - Diagnostic Findings Chest x-ray: report reviewed, image reviewed CT scan - chest: report reviewed, image reviewed Assessment and Plan Plan: Assessment: #1. Medial posterior left lower lobe consolidation, likely related to the left lower lung collapse and atelectasis, rule out underlying pneumonia or bronchogenic neoplasm #2. Persistent cough, with production of brown sputum since April 2018, recurrence of symptoms. Been treated with 2 rounds of antibiotics #3. Dyspnea, weight loss, left-sided chest discomfort exacerbated by coughing, cardiac workup was negative #4. Chronic kidney disease stage II #5. Coronary artery disease with history of four-vessel bypass grafting in 2017 #6. Carotid artery disease with history of right carotid stenting in 2017 #7. History of CVA/TIA #8. History of cancer status post radical neck dissection followed by chemoradiation #9. Bilateral apical consolidation seen on the CT chest likely related to postradiation changes #10. Hypothyroidism #11. Former smoker Plan: The findings of the CT chest were shared with the patient and his , left lower lobe lung collapse and atelectasis could be related to underlying pneumonia or bronchogenic neoplasm. We recommend bronchoscopy with possible biopsies and bronchial washings. Patient is on aspirin and Plavix, Plavix will have to be on hold for 5-7 days prior to the procedure. Is fairly comfortable right now, vital signs are stable, no fever no chills, and room air, from pulmonary perspective he could be discharged home on oral course of antibiotics , prednisone taper, with outpatient follow-up in the office with Dr. Balbuena. I performed a history & physical examination of the patient and discussed their management with my nurse practitioner, Jaycee Trotter. I reviewed the nurse practitioner's note and agree with the documented findings and plan of care. Lung sounds are diminished with bibasilar crackles. The findings and the impression was discussed with the patient. I attest to the documentation by the nurse practitioner. Time with Patient: Greater than 30
--- NOTE | 2018-08-07 12:35 | ECHOF ---
Referral Reason:cp, sob MEASUREMENTS -------- HEIGHT: 175.3 cm WEIGHT: 66.7 kg BP: 172/85 RVIDd: 3.3 cm (< 3.3) IVSd: 1.2 cm (0.6 - 1.1) LVIDd: 3.7 cm (3.9 - 5.3) LVPWd: 1.2 cm (0.6 - 1.1) IVSs: 1.4 cm LVIDs: 2.7 cm LVPWs: 1.4 cm LAESV Index (A-L): 22.77 ml/m Ao Diam: 3.2 cm (2.0 - 3.7) AV Cusp: 1.9 cm (1.5 - 2.6) LA Diam: 2.0 cm (2.7 - 3.8) EPSS: 0.3 cm MV E Osito: 0.49 m/s MV DecT: 169 ms MV A Osito: 0.58 m/s MV E/A Ratio: 0.86 AR PHT: 523 ms RAP: 5.00 mmHg RVSP: 32.66 mmHg MV EF SLOPE: 64.93 mm/s (70 - 150) MV EXCURSION: 1.43 cm (> 18.000) FINDINGS -------- Sinus rhythm. This was a technically good study. The left ventricular size is normal. There is mild concentric left ventricular hypertrophy. Overa ll left ventricular systolic function is normal with, an EF between 55 - 60 %. The right ventricle is mildly enlarged. Normal LA size by volume 22+/-6 ml/m2. The right atrial size is normal. There is mild aortic valve sclerosis. There is yidt-ww-famtasvd aortic regurgitation. There is no evidence of aortic stenosis. The mitral valve leaflets are mildly thickened. Mild mitral regurgitation is present. Mild tricuspid regurgitation present. Right ventricular systolic pressure is normal at < 35 mmHg. The right ventricular systolic pressure, as measured by Doppler, is 32.66mmHg. Trace/mild (physiologic) pulmonic regurgitation. The aortic root size is normal. Normal inferior vena cava with normal inspiratory collapse consistent with estimated right atrial pre ssure of 5 mmHg. There is no pericardial effusion. CONCLUSIONS -------- 1. Sinus rhythm. 2. This was a technically good study. 3. The left ventricular size is normal. 4. There is mild concentric left ventricular hypertrophy. 5. Overall left ventricular systolic function is normal with, an EF between 55 - 60 %. 6. The right ventricle is mildly enlarged. 7. Normal LA size by volume 22+/-6 ml/m2. 8. There is mild aortic valve sclerosis. 9. There is sthr-vd-yhiipxyc aortic regurgitation. 10. The mitral valve leaflets are mildly thickened. 11. Mild mitral regurgitation is present. 12. Mild tricuspid regurgitation present. 13. Right ventricular systolic pressure is normal at < 35 mmHg. 14. Trace/mild (physiologic) pulmonic regurgitation. 15. The aortic root size is normal. 16. There is no pericardial effusion. HOUSING INSTALLER: Griffin Guallpa RDCS
--- NOTE | 2018-08-07 14:48 | P.DS ---
Providers Date of admission: 08/06/18 11:59 Expected date of discharge: 08/07/18 Attending physician: Kale Fischer Consults: 08/06/18 12:52 Consult Physician Routine Consulting Provider: Tolu Travis Consult Reason/Comments: chest pain Do you want consulting provider notified?: Yes 08/07/18 09:17 Consult Physician Routine Consulting Provider: Chikis Casatneda Consult Reason/Comments: abnormal chest CT Do you want consulting provider notified?: Yes Primary care physician: Kale Fischer [facility] Course: discharge diagnosis 1. Shortness of breath. Chest x-ray completed showing chronic emphysematous change with chronic retrocardiac opacity could reflect scarring. No significant change from recent chest x-ray. Consider CT correlation no recent chest CT noted at this institution. CT of chest completedshowing medial posterior left lower lobe consolidation. Correlate for atelectasis. Underlying mass is not excluded. Small amount fluid may be adjacent this is new from 2009 and bilateral apical consolidations are most likely post radiation changes. per pulmonary patient will require bronchoscopy outpatient but due to patient being on Plavix will have to hold for 1 week and then perform bronchoscopy outpatient. Patient has been cleared for discharge from pulmonary standpoint patient to be DC'd on Levaquin and steroids per pulmonary services. 2. Chest pain.troponins negative 3. 2-D echo completed showing an EF between 55 and 60%. patient has been cleared for discharge from cardiology standpoint. 3. Left flank pain. urinary analysis negative for UTI showing trace amounts of glucose and protein 4. Recent weight loss of 15 pounds over the past 2 months 5. History of coronary artery bypass graft surgery in February 2017 patient maintained on Plavix and aspirin. Plavix will be held on discharge for outpatient bronchoscopy with pulmonary services. cardiology aware 6. History of tonsillar cancer in 2006 chemo radiation and surgery 7. History of right carotid stent 1 year ago 8. History of CVA 9. History of renal disease. Patient states he follows with Dr. Capone. creatinine 1.40 this does appear baseline per patient 10. History of hyperlipidemia 11. History of essential hypertension 12. History of hypothyroidism 13. Constipation. Resolved at this time. Patient states he used fleet enema last night Hospital course This is a 72-year-old male patient who presented to his primary care provider with complaints of increased shortness of breath has been occurring for 3-4 weeks along with chest discomfort. Patient states that in the summer he started to have increased cough with sputum production and was [facility] Patient states he did get improvement with this cough but shortness of breath started occurring about 3-4 weeks ago. Patient is also complaining of intermittent chest discomfort that has also been occurring over the past few weeks. Patient does have a known past medical history of coronary artery bypass graft surgery with Dr. Alicea in February 2017. Patient also follows with Dr. Sanna Avila for cardiology. Additional medical history includes CVA, renal disease which he follows with Dr. Flores tonsillar cancer in 2005 with chemo radiation and surgery. Additional medical history includes hyperlipidemia, hypertension, thyroid disorder, hearing disorder and right carotid stent placement 1 year ago. Patient also stating he' s lost proximally 15 pounds over the past 2 months. Patient also states he started experiencing left flank pain yesterday after he was constipated for a couple days and then had bowel movement with Fleet enema. At this time will order CBC, CMP, mag, troponins and cardiac profile. EKG will be ordered. Will consult cardiology services. Will order chest x-ray. Will Order urinary analysis to rule out UTI for left flank pain. on 08/07/2018 discussed case with pulmonary service is planning to perform bronchoscopy. Plavix will have to be held for 1 week patient to follow-up outpatient with Dr. Balbuena in office for outpatient bronchoscopy. Cardiology has cleared patient for discharge and okay with Plavix being held at this time. Patient also advised to follow-up closely with PCP. Patient will be discharged on Levaquin antibiotic and prednisone per pulmonary recommendation. at this time patient denies chest pain or shortness of breath. Patient denies nausea vomiting or diarrhea. Patient denies any urinary burning or frequency. Patient to follow-up closely with Pulmonary and PCP I performed an examination of the patient and discussed their management with the Nurse Practitioner. I have reviewed the Nurse Practitioner's notes and agree with the documented findings and plan of care Patient Condition at Discharge: Stable Plan - Discharge Summary Discharge Rx Participant: No New Discharge Prescriptions: New Levofloxacin [Levaquin] 500 mg PO DAILY 5 Days #5 tab predniSONE 10 mg PO DIRECTED #18 tab Continue Fluticasone Nasal Alderson [Flonase Nasal Ald[place]] 1 spray EA NOSTRIL DAILY Levothyroxine Sodium [Synthroid] 112 mcg PO DAILY Aspirin 81 mg PO DAILY #30 amLODIPine [Norvasc] 5 mg PO DAILY Metoprolol Tartrate [Lopressor] 25 mg PO BID Atorvastatin [Lipitor] 20 mg PO HS Tamsulosin [Flomax] 0.4 mg PO HS Discontinued Clopidogrel [Plavix] 75 mg PO DAILY #30 tab Discharge Medication List Fluticasone Nasal [place] [Flonase Nasal Ald[place]] 1 spray EA NOSTRIL DAILY 02/12/17 [History] Levothyroxine Sodium [Synthroid] 112 mcg PO DAILY 02/12/17 [History] Aspirin 81 mg PO DAILY #30 03/21/17 [Rx] Metoprolol Tartrate [Lopressor] 25 mg PO BID 07/02/17 [History] amLODIPine [Norvasc] 5 mg PO DAILY 07/02/17 [History] Atorvastatin [Lipitor] 20 mg PO HS 07/30/17 [History] Tamsulosin [Flomax] 0.4 mg PO HS 08/06/18 [History] Levofloxacin [Levaquin] 500 mg PO DAILY 5 Days #5 tab 08/07/18 [Rx] predniSONE 10 mg PO DIRECTED #18 tab 08/07/18 [Rx] Follow up Appointment(s)/Referral(s): Josh Mendoza MD [STAFF PHYSICIAN] - 1 Week Kale Fischer MD [Primary Care Provider] - 1 Week Activity/Diet/Wound Care/Special Instructions: diet heart healthy Activity as tolerated Dr. Mendoza planning bronchoscopy next week patient to follow-up in office. Plavix currently on hold for bronchoscopy cardiology aware Discharge Disposition: HOME SELF-CARE
[2018-08-07] MEDS ORDERED: ATORVASTATIN 40 MG TAB PO SCH (21:00)
== END 2018-08-07 15:25 | disposition home or self-care (01) ==
LOC: 1SOBS 11:59
PROVIDERS: ADMIT Internal Medicine; ATTEND Internal Medicine
DX: R06.02 Shortness of breath (principal); R91.8 Other nonspecific abnormal finding of lung field; R07.89 Other chest pain; R06.01 Orthopnea; R05 Cough; R63.4 Abnormal weight loss; K59.00 Constipation, unspecified; R10.9 Unspecified abdominal pain; I12.9 Hypertensive chronic kidney disease with stage 1 through stage 4 chronic kidney disease, or unspecified chronic kidney disease; N18.2 Chronic kidney disease, stage 2 (mild); I73.9 Peripheral vascular disease, unspecified; H91.90 Unspecified hearing loss, unspecified ear; E78.5 Hyperlipidemia, unspecified; E03.9 Hypothyroidism, unspecified; I25.10 Atherosclerotic heart disease of native coronary artery without angina pectoris; K57.90 Diverticulosis of intestine, part unspecified, without perforation or abscess without bleeding; K40.90 Unilateral inguinal hernia, without obstruction or gangrene, not specified as recurrent; I65.23 Occlusion and stenosis of bilateral carotid arteries; K21.9 Gastro-esophageal reflux disease without esophagitis; Z79.82 Long term (current) use of aspirin; Z79.890 Hormone replacement therapy; Z79.02 Long term (current) use of antithrombotics/antiplatelets; Z79.899 Other long term (current) drug therapy; Z97.4 Presence of external hearing-aid; Z86.010 Personal history of colon polyps; Z95.1 Presence of aortocoronary bypass graft; Z86.73 Personal history of transient ischemic attack (TIA), and cerebral infarction without residual deficits; Z87.09 Personal history of other diseases of the respiratory system; Z85.818 Personal history of malignant neoplasm of other sites of lip, oral cavity, and pharynx; Z92.21 Personal history of antineoplastic chemotherapy; Z92.3 Personal history of irradiation; Z95.828 Presence of other vascular implants and grafts; Z87.891 Personal history of nicotine dependence; Z80.1 Family history of malignant neoplasm of trachea, bronchus and lung; Z81.2 Family history of tobacco abuse and dependence; Z82.49 Family history of ischemic heart disease and other diseases of the circulatory system
CPT/HCPCS: 96365; 96366; 96367; 93306; 83880; 80053 ×2; 85652; 84443; 82550 ×2; 82553 ×2; 83735; 84484 ×2; 85025 ×2; 86140; 81003; 71046; 71250; G0378 ×2; G0379; J0456; J0696

== ENCOUNTER → 2018-09-10 | Outpatient (CLI) | payer OTHER ==
--- NOTE | 2018-09-10 08:38 | CT ---
EXAMINATION TYPE: CT chest wo con DATE OF EXAM: 09/10/2018 COMPARISON: 08/06/2018 HISTORY: f/u pneumonia CT DLP: 259.6 mGycm. Automated Exposure Control for Dose Reduction was Utilized. TECHNIQUE: CT scan of the thorax is performed without IV contrast. FINDINGS: LUNGS: Biapical scarring/possible post radiation change with cylindrical bronchiectasis is moderate i n degree and similar to the prior. The previously seen left lower lobe collapse, possibly due to endo bronchial obstruction has resolved in the interim. There does remain mild left-sided peribronchial cu ffing and bibasilar cylindrical bronchiectasis with single focus of endobronchial mucous plugging wit hin the medial right lower lobe. The previously seen groundglass opacities have entirely resolved in the interim. Within the lingula there is a new area of elongated bandlike density such as on series 4 image 46, however there is peripheral spiculation on image 44 and therefore follow-up is recommended . This is favored to represent atelectasis and/or early scarring. Solitary right lower lobe bleb is noted in image 58 of series 4. The lungs are hyperexpanded relating to COPD. There are few punctate reticular nodular densities in the right upper lobe such as on serie s 4 image 24 that could relate to atelectasis although should be reevaluated with short-term follow-u p. MEDIASTINUM: Lack of IV contrast is noted to limit evaluation for mediastinal and especially hilar ad enopathy. There are no definitive greater than 1 cm hilar or mediastinal lymph nodes. Post CABG long es are noted of the chest. The ascending thoracic aorta is aneurysmal size measuring 4.3 cm. Moderate atherosclerosis is seen of the thoracic aorta. OTHER: There is a small hiatal hernia noted. Severe atherosclerosis of the splenic artery and extensi ve atherosclerosis of the renal ostia are noted. Probable left renal sinus cyst is seen although ther e is fullness of the superior and inferior calyces. This is unchanged from the prior and could relate to chronic left ureteropelvic stricture. Nonobstructing 4 mm left superior pole renal calculus is no jose david. Moderate multilevel degenerative changes of the thoracic spine are seen. IMPRESSION: 1. Resolution of the previously seen complete left lobar atelectasis/consolidation, possibly related to resolved endobronchial obstruction or lobar pneumonia with atelectasis. There is also complete res olution of the previously seen left lower lobe infectious groundglass opacities. 2. New bandlike lingular opacity favored to represent atelectasis and/or developing scar given its mo rphology however short-term follow-up in 3-6 months is recommended to ensure stability. At this time reticular nodular faint opacity in the right upper lobe should also be reevaluated. 3. Biapical scarring with cylindrical bronchiectasis is similar to the prior and may represent post r adiation change in this patient with history of laryngeal carcinoma. 4. Probable left renal sinus cyst although there is blunting of the remainder of the left calyces and chronic left ureteropelvic junction obstruction should also be considered. 5. Ascending thoracic aortic aneurysm measuring 4.3 cm.
== END | disposition home or self-care (01) ==
LOC: RADCTMAIN 06:47
PROVIDERS: ATTEND Internal Medicine
DX: J47.9 Bronchiectasis, uncomplicated (principal); I71.2 Thoracic aortic aneurysm, without rupture
CPT/HCPCS: 71250

== ENCOUNTER 2018-09-11 09:53 | Day surgery (SDC) | payer OTHER ==
[~2018-09-11 09:53] MED LIST changes: -ALBUMIN HUMAN 25% 50 ML IV ONE; -ALBUMIN HUMAN 5% 500 ML IVPB ONE; +ALPRAZolam 0.25 MG TAB PO PRN; +ALPRAZolam 0.5 MG TAB PO PRN; -ASPIRIN 325 MG TAB PO ONE; +ASPIRIN 325 MG TAB PO STA; -ATORVASTATIN 10 MG TAB PO ONE; -CALCIUM CHLORIDE 100 MG/ML 10 ML SYRINGE IV ONE; -CHLORHEXIDINE GLUCONATE 15 ML CUP MUCOUS MEM ONE; -CLEVIDIPINE BUTYRATE 25 MG in EMPTY BAG 1 BAG IV ONE; +CLOPIDOGREL 75 MG TAB PO STA; -HEPARIN SODIUM 1,000 UN/ML (10ML VL) IV ONE; -HEPARIN SODIUM,PORCINE 5,000 UNIT in SODIUM CHLORIDE 0.9% 500 ML IV ONE; -INSULIN REGULAR 100 UNIT in SODIUM CHLORIDE 0.9% 100 ML IV ONE; -LACTATED RINGERS 1,000 ML IV ONE; -LACTATED RINGERS 1,000 ML IV SCH; -LIDOCAINE 1% 20 ML VIAL (10MG/ML) FOR IV START INTRADERMA PRN; -MAGNESIUM SULFATE MG 500 MG/ML VIAL IV ONE; -METOPROLOL TARTRATE 12.5 MG TAB PO ONE; -MUPIROCIN 2% OINT 22 GM TUBE NASAL ONE; +NITROGLYCERIN SL TABS 0.4 MG TAB SUBLINGUAL PRN; -NITROGLYCERIN-D5W PMX 25 MG/250 ML BTL IV ONE; -NOREPINEPHRIN 4 MG-0.9% NS PMX 4 MG/250 ML ML IV ONE; -PAPAVERINE 360 MG in SODIUM CHLORIDE 0.9% 90 ML IV ONE; -PHENYLEPHRINE 40 MG in SODIUM CHLORIDE 0.9% 250 ML IV ONE; -PHENYLEPHRINE-0.9% NACL SYG 1 MG/10 ML SYRINGE IV ONE; -PROPOFOL 1,000 MG/100 ML VIAL IV ONE; -PROTAMINE SULFATE 10 MG/ML 25 ML VIAL IV ONE; -PROTAMINE SULFATE 250 MG in EMPTY BAG 1 BAG IV ONE; -SODIUM BICARB 8.4% 50 ML SYR (1 MEQ/ML) IV ONE; -SODIUM CHLORIDE 0.9% 1,000 ML IV ONE; +SODIUM CHLORIDE 0.9% 1,000 ML in EMPTY BAG 1 BAG IV ONE; -ceFAZolin 1,000 MG in SODIUM CHLORIDE 0.9% IRRIGATIO 1,000 ML IRRIGATION ONE; -ceFAZolin 2,000 MG in SODIUM CHLORIDE 0.9% 30 ML IVPB ONE
[2018-09-11] MEDS ORDERED: SODIUM CHLORIDE 0.9% 1,000 ML IV ONE (10:41)
[2018-09-11 11:46] LABS: Calcium 9.8 mg/dL (8.4-10.2); Potassium 4.5 mmol/L (3.5-5.1)
[2018-09-11] MEDS ORDERED: LIDOCAINE 1% (PF) 10MG/ML VIAL SQ ONE (15:12)
[2018-09-11] MEDS ORDERED: IOPAMIDOL-250 100ML BTL INTRAARTER ONE (15:45)
[2018-09-11] MEDS ORDERED: SODIUM CHLORIDE 0.9% 1,000 ML IV SCH (16:00)
[2018-09-11] MEDS ORDERED: hydrALAZINE HCL 20 MG/ML 1 ML VIAL IVP STA (16:15)
[2018-09-11] MEDS ORDERED: hydrALAZINE HCL 20 MG/ML 1 ML VIAL ONE (16:16)
[2018-09-11 17:24] VITALS: TEMP 97.7
--- NOTE | 2018-09-11 17:28 | AN ---
ANGIOGRAPHY REPORT AORTIC ARCH AND CAROTID ANGIOGRAM: DATE OF SERVICE: 09/11/2018 PERFORMING PHYSICIAN: Yaniv Spivey MD, line supervisor. PROCEDURES PERFORMED: 1. Aortic arch angiogram. 2. Selective bilateral carotid angiogram. INDICATION: This is a pleasant 72-year-old gentleman who sees Dr. China Avila in the office as an outpatient with known history of carotid disease where he underwent in 2018 stenting of the right internal carotid artery. He underwent recently a CT scan of the neck and that showed severe disease involving severe in-stent restenosis. Because of that, he was brought today to undergo a carotid angiogram. APPROACH: Right common femoral artery. COMPLICATIONS: None. LEVEL OF SEDATION: Moderate with sedation length of 23 minutes. PROCEDURE DESCRIPTION: After obtaining informed consent, the patient was brought to the cardiac rn cardiac cath. The right common femoral artery was cannulated using micropuncture technique. The micropuncture wire passed easily. Then I placed a 5-St Helenian sheath in the right common femoral artery. After that I did an aortic arch angiogram using 5-St Helenian pigtail catheter. Then I did selective right and left carotid angiogram using JB2 catheters. The procedure was completed without any complication. AORTIC ARCH ANGIOGRAM: The aortic arch angiogram was performed in the [place] projection using a power injection. The aortic arch appeared to be angiographically normal. It is a type 2 arch. SELECTIVE CAROTID ANGIOGRAM: 1. The right carotid system. The right common carotid artery appeared to be angiographically normal. The right external carotid artery is patent. The right internal carotid artery is stented and the stent is patent. 2. The left carotid system. The left common carotid artery has intermediate lesion in the range of 50%. The left external carotid artery is patent and the left internal carotid artery has a lesion that appeared to be in the range of 50% as well. CONCLUSION: 1. Patent stent in the right internal carotid artery. 2. Intermediate disease involving the left common carotid artery and left internal carotid artery as well. POST-PROCEDURE MANAGEMENT: 1. Given the absence of any hemodynamically significant stenosis, I recommended maximized medical treatment and followup with the patient. 2. The patient is going to be discharged home and follow up with Dr. China Avila in the office as an outpatient. MMODL / IJN: [id number] /
[2018-09-11] MEDS ORDERED: amLODIPine 5 MG TAB PO SCH (18:00)
[2018-09-11 18:36] VITALS: BMI 21.9
[2018-09-11 19:33] VITALS: BP 131/77; PULSE 71; RESP 15
[2018-09-11] MEDS ORDERED: METOPROLOL TARTRATE 25 MG TAB PO SCH (21:00)
--- NOTE | 2018-09-12 12:40 | IR ---
Fluoroscopy HISTORY: Carotid vascular disease 3.4 minutes fluoroscopy time supplied to the referring clinician. 171 intraoperative C-arm images do cument the procedure. See dictated report from cardiology.
== END 2018-09-11 20:45 | disposition home or self-care (01) ==
LOC: CATHCVL 09:53 → 1SOBS 15:45 → CATHCVL 20:45
PROVIDERS: ATTEND Internal Medicine Interventional Cardiology
DX: I65.22 Occlusion and stenosis of left carotid artery (principal); I10 Essential (primary) hypertension; E78.5 Hyperlipidemia, unspecified; Z87.891 Personal history of nicotine dependence; Z95.820 Peripheral vascular angioplasty status with implants and grafts; Z95.1 Presence of aortocoronary bypass graft; Z79.02 Long term (current) use of antithrombotics/antiplatelets; Z79.82 Long term (current) use of aspirin; Z79.890 Hormone replacement therapy; Z79.899 Other long term (current) drug therapy
CPT/HCPCS: 36222; 80048; C1760; C1894; C1769 ×4; J0360; J2001; Q9966

== ENCOUNTER → 2019-03-17 | Outpatient (CLI) | payer OTHER ==
--- NOTE | 2019-03-18 00:18 | CT ---
EXAMINATION TYPE: CT chest wo con DATE OF EXAM: 03/17/2019 COMPARISON: 09/10/2018. HISTORY: 73-year-old male recent pneumonia. Follow up per patient TECHNIQUE: Contiguous axial scanning of the chest without IV contrast. Coronal and sagittal reconstru ctions performed. CT DLP: 320.8 mGycm Automated exposure control for dose reduction was used. FINDINGS: The heart is normal size without pericardial effusion. Median sternotomy wires are present with post- CABG clips. Ascending aorta aneurysmal at 4.4 cm relatively stable from 4.3 cm on prior exam. Conventional arch v essel branching anatomy with scattered mild atherosclerotic calcifications. A few scattered prominent but nonenlarged mediastinal lymph nodes measuring up to 8 mm in the precari nal region. Evaluation the lungs again shows some bronchiectasis, volume loss, and consolidation in the medial ap ices, possibly relating to prior radiation port. Vague areas of groundglass have increased, for example, peripheral right midlung, superior segment le ft lower lobe, and posterior left base. Some vague patchy groundglass medial right lower lobe is unch anged. Mild emphysematous change. No antwan consolidation or pleural effusion. Visualized upper abdomen shows a tiny hernia. Central cyst left kidney at 3.6 cm is partially visuali zed and unchanged. Bones: Endplate spondylosis mid to lower thoracic spine. IMPRESSION: 1. MULTIFOCAL VAGUE GROUNDGLASS DENSITY HAS INCREASED FROM 09/10/2018. FINDINGS COULD REPRESENT INTERS TITIAL PNEUMONITIS SUCH NSIP OR MOLD MECHANIC. MILD HYPERSENSITIVITY PNEUMONITIS IS ALSO A POSSIBILITY. VIKY TIONAL 6 MONTH FOLLOW-UP RECOMMENDED TO REASSESS. 2. COPD WITH MILD EMPHYSEMA. MEDIAL BIAPICAL PLEURAL PARENCHYMAL SCARRING IS STABLE. 3. MILD ASCENDING AORTIC ANEURYSM AT 4.4 CM RELATIVELY UNCHANGED.
== END | disposition home or self-care (01) ==
LOC: RADCTMAIN 15:02
PROVIDERS: ATTEND Physician Assistant Medical
DX: J44.9 Chronic obstructive pulmonary disease, unspecified (principal); J98.4 Other disorders of lung; I71.2 Thoracic aortic aneurysm, without rupture
CPT/HCPCS: 71250

== ENCOUNTER → 2019-04-03 | Outpatient (CLI) | payer OTHER | END | disposition home or self-care (01) | LOC: LABWHC1 16:15 | PROVIDERS: ATTEND Internal Medicine | DX: J18.9 Pneumonia, unspecified organism (principal) | CPT/HCPCS: 87070; 87205 ==

== ENCOUNTER 2019-04-09 07:09 | Day surgery (SDC) | payer OTHER ==
[2019-04-04 11:27] VITALS: BMI 22.7
[~2019-04-09 07:09] MED LIST changes: +ALBUTEROL NEB (CONC) 2.5 MG/0.5 ML INHALATION STA; +ALBUTEROL NEBULIZED 2.5 MG/3 ML INHALATION STA; -ALPRAZolam 0.25 MG TAB PO PRN; -ALPRAZolam 0.5 MG TAB PO PRN; -ASPIRIN 325 MG TAB PO STA; -CLOPIDOGREL 75 MG TAB PO STA; +LACTATED RINGERS 1,000 ML IV SCH; +LIDOCAINE 2% (PF) 20 MG/ML 5 ML VIAL INHALATION ONE; -NITROGLYCERIN SL TABS 0.4 MG TAB SUBLINGUAL PRN; -SODIUM CHLORIDE 0.9% 1,000 ML in EMPTY BAG 1 BAG IV ONE
[2019-04-09 07:40] VITALS: TEMP 97.8
[2019-04-09] MEDS ORDERED: LIDOCAINE 1% 20 ML VIAL (10MG/ML) FOR IV START INTRADERMA ONE (07:50)
[2019-04-09] MEDS ORDERED: KETAMINE 10 MG/ML 20 ML VIAL ONE (08:01)
[2019-04-09] MEDS ORDERED: LIDOCAINE 1% INJ 10MG/ML (20 ML MDV) ONE (08:01)
[2019-04-09] MEDS ORDERED: fentaNYL (PF) 50 MCG/ML 2 ML AMP ONE (08:01)
[2019-04-09] MEDS ORDERED: GLYCOPYRROLATE 0.2 MG/ML 2 ML VIAL ONE (08:01)
[2019-04-09] MEDS ORDERED: MIDAZOLAM 2 MG/2 ML VIAL ONE (08:01)
[2019-04-09] MEDS ORDERED: PROPOFOL 10 MG/ML 20 ML VIAL IV ONE (08:01)
[2019-04-09 08:29] VITALS: RESP 16
--- NOTE | 2019-04-09 08:39 | PCN ---
PROCEDURE NOTE PROCEDURE: Bronchoscopy, bronchoalveolar lavage of the right upper lobe, and random bronchial washings from the right middle lobe, right lower lobe, lingula and right upper lobe. PREOPERATIVE DIAGNOSIS: Chronic cough and right upper lobe pneumonia with abnormal CT of the chest. POSTOPERATIVE DIAGNOSIS: Chronic cough and right upper lobe pneumonia with abnormal CT of the chest. ANESTHESIA USED: IV conscious sedation. PROCEDURE NOTE: Patient was prepared according to the bronchoscopy protocol. O2 was applied via nasal cannula. He was placed in the supine position. We monitored his O2 saturation continuously, blood pressure was also monitored intermittently and cardiac rhythm was continuously monitored. After adequate IV conscious sedation, the bronchoscope was advanced through the mouth/bite block was already placed, and as we visualized the oropharynx, there was significant radiation changes and inflammatory changes noted in the area of the epiglottis and area around the vocal cords. Again, significant tissue changes related to previous radiation noted in that area and pictures of that area were taken. Then, lidocaine was applied over the vocal cords, the vocal cords were noted. Again, inflammatory changes noted from previous radiation noted around the area of the vocal cords. The bronchoscope was advanced further down and a thorough examination was done of the trachea, glenn, right upper lobe, right middle lobe, right lower lobe, left upper lobe, lingula and left lower lobe. Minimal thick purulent secretions noted in the anterior segment of the right upper lobe, lavage of the anterior segment of the right upper lobe was done. Then, washings from the right middle lobe, right lower lobe, and lingula were done for minimal clear secretions noted in those areas. No other areas were noted to be abnormal. Then the bronchoscope was pulled out of the airways, procedure was well tolerated, and no evidence of any immediate complications. The fluid obtained from the right upper lobe and from the other areas of the lungs was sent for different diagnostic studies, mostly cultures and for cytology. MMODL / IJN: [id number] /
[2019-04-09 09:23] VITALS: BP 127/75; PULSE 64
[2019-04-09 14:19] LABS: Appearance,BF Hazy; Color,BF Colorless
[2019-04-09 14:21] LABS: Nucleated Cells, Body Fluid 280 /uL; RBC, Body Fluid 25 /uL
[2019-04-09 14:35] LABS: Mononuclear WBC,Body Fluid 20 %; Polynuclear WBC,Body Fluid 80 %; Total Cells Counted,Body Fluid 100
== END 2019-04-09 09:41 | disposition home or self-care (01) ==
LOC: ORWHC2ENDO 07:09
PROVIDERS: ATTEND Internal Medicine
DX: J44.9 Chronic obstructive pulmonary disease, unspecified (principal); J47.9 Bronchiectasis, uncomplicated; J18.1 Lobar pneumonia, unspecified organism; J70.0 Acute pulmonary manifestations due to radiation; E03.9 Hypothyroidism, unspecified; I25.10 Atherosclerotic heart disease of native coronary artery without angina pectoris; E78.5 Hyperlipidemia, unspecified; I12.9 Hypertensive chronic kidney disease with stage 1 through stage 4 chronic kidney disease, or unspecified chronic kidney disease; N18.9 Chronic kidney disease, unspecified; Z85.819 Personal history of malignant neoplasm of unspecified site of lip, oral cavity, and pharynx; Z77.123 Contact with and (suspected) exposure to radon and other naturally occurring radiation; Z87.891 Personal history of nicotine dependence; Z86.73 Personal history of transient ischemic attack (TIA), and cerebral infarction without residual deficits; H91.90 Unspecified hearing loss, unspecified ear; R55 Syncope and collapse; R13.10 Dysphagia, unspecified; Z95.1 Presence of aortocoronary bypass graft; Z97.2 Presence of dental prosthetic device (complete) (partial); Z79.02 Long term (current) use of antithrombotics/antiplatelets; Z79.82 Long term (current) use of aspirin; Z79.51 Long term (current) use of inhaled steroids; Z79.899 Other long term (current) drug therapy; Z79.890 Hormone replacement therapy
CPT/HCPCS: 87798 ×3; 87496; 87498; 87529; 88108; 88305; 89050; 87252; 87502; 87634; 87070; 87205; 87116; 87102; 87206; 31624; J2250; J2001; J3010; J2704

== ENCOUNTER → 2020-03-30 | Outpatient (CLI) | payer OTHER ==
--- NOTE | 2020-03-30 18:54 | CT ---
CT CHEST FOR PULMONARY EMBOLISM. EXAMINATION TYPE: CT angio chest DATE OF EXAM: 03/30/2020 INDICATION: follow up ascending aortic aneurysm CT DLP: 437 mGycm, Automated exposure control for dose reduction was used. CONTRAST: Patient injected with 80 mL of Isovue 370. COMPARISON: 03/17/2019 TECHNIQUE: CT of the chest is performed on a spiral scan at 2 mm thick sections. Study is performed with intravenous contrast timed for evaluation for thoracic aorta. This will limit additional portio ns of the evaluation. 3-D MIP images reconstructed by the technologist are reviewed on the computer in the coronal and sagittal planes. FINDINGS: No persistent filling defects are evident to suggest an acute pulmonary embolism. No mediastinal or hilar adenopathy enlarged by CT criteria is evident. The ascending aorta diameter at the level of the main pulmonary artery is 4.1 cm. The main pulmonary artery diameter at the bifur cation is 2.3 cm. Ascending thoracic aorta at the aortic root is 3.5 cm. Ascending thoracic aorta at the main pulmonary artery is 4.1 cm. Aortic arch transverse dimension is 2.8 cm. Aorta above the diaphragm measures 2.8 cm. There is thickening with air-filled areas within the bilateral lung apices can be some fibrosis and s carring. Finding is stable from 2019. There is interval development of peripheral areas of increased density. Largest area measures 0.7 c m. Series 7 image 19. There is an irregular area of increased density above the minor fissure measuri ng 0.8 cm. Additional infiltrate is through this region. Evaluation for possible neoplasm is recomme nded. Some peripheral infiltrate is in the posterior right midlung. Scattered areas of pneumonitis are with in the superior segment left lower lobe. Left basilar infiltrate is present. Limited CT section through the upper abdomen are unremarkable. IMPRESSIONS: 1. Developing irregular nodularity within the periphery of the right midlung with additional bilatera l pneumonitis changes. Findings are changed from 2019. Workup for neoplasm is recommended. 2. Bilateral apical thickening appears stable 3. Stable ascending thoracic aortic aneurysm.
== END | disposition home or self-care (01) ==
LOC: RADCTMAIN 12:59
PROVIDERS: ATTEND Internal Medicine Interventional Cardiology
DX: J18.9 Pneumonia, unspecified organism (principal); R91.8 Other nonspecific abnormal finding of lung field; I71.2 Thoracic aortic aneurysm, without rupture
CPT/HCPCS: 82565; 84520; 71275; 36415; Q9967

== ENCOUNTER → 2020-08-12 | Outpatient (CLI) | payer OTHER ==
--- NOTE | 2020-08-12 12:00 | CT ---
EXAMINATION TYPE: CT chest w con DATE OF EXAM: 08/12/2020 COMPARISON: 03/30/2020 HISTORY: Lung nodule, history of tonsilar/throat CA CT DLP: 243.6 mGycm Automated exposure control for dose reduction was used. CONTRAST: CT scan of the chest is performed with IV Contrast, patient injected with 80 mL of Isovue 300. FINDINGS: LUNGS: Vague areas of subsegmental consolidation and groundglass changes are seen in the right upper lobe and bilateral lower lobes and are stable from the prior exam. Previously noted nodular density i n the right midlung has resolved. Emphysematous changes are seen. No sizable pleural effusion or pneu mothorax. Biapical pleural-based thickening is stable. MEDIASTINUM: The heart is enlarged. There is aneurysmal dilation of the ascending aorta measuring 4.2 cm. Postsurgical changes including sternotomy are noted. There is coronary artery calcification. Hea rt size stable. There is a small hiatal hernia. OTHER: Left-sided parapelvic renal cyst is stable and favored over mild hydronephrosis. Hypertrophic and degenerative changes of the spine. Small hiatal hernia noted. Sclerotic density in the anterior left-sided rib is too small to characterize. IMPRESSION: 1. COPD with vague groundglass changes involving both lungs correlate for pneumonitis. Findings stabl e from prior exam. Nodularity described on the prior exam in the right midlung has demonstrated near complete resolution. 2. Cardiomegaly with mild aneurysmal dilation of the ascending aorta measuring 4.2 cm. 3. Biapical pleural thickening appears stable.
== END | disposition home or self-care (01) ==
LOC: RADCTMAIN 10:46
PROVIDERS: ATTEND Internal Medicine
DX: J44.9 Chronic obstructive pulmonary disease, unspecified (principal); R91.1 Solitary pulmonary nodule; I71.2 Thoracic aortic aneurysm, without rupture; R91.8 Other nonspecific abnormal finding of lung field
CPT/HCPCS: 82565; 84520; 71260; 36415; Q9967

== ENCOUNTER 2021-04-09 07:41 | Inpatient (IN) | payer OTHER, MEDICARE ==
[2021-04-09] MEDS ORDERED: ONDANSETRON 4 MG/2 ML VIAL IVP STA (07:47)
[2021-04-09] MEDS ORDERED: SODIUM CHLORIDE 0.9% 1,000 ML IV STA (07:47)
--- NOTE | 2021-04-09 07:58 | ED ---
General Adult HPI - General Chief complaint: Abdominal Pain Stated complaint: fever, vomiting Time Seen by Provider: 04/09/21 07:46 Source: patient Mode of arrival: wheelchair Limitations: physical limitation - History of Present Illness Initial comments: Dictation was produced using [employer] dictation software. please excuse any grammatical, word or spelling errors. Chief Complaint: 75-year-old male past medical history coronary artery disease, squamous cell cancer of the tonsil, COPD, hypertension dyslipidemia, coronary artery bypass graft presents to the emergency department for couple days of abdominal pain, nausea and fever History of Present Illness: 75-year-old male has multiple comorbidities over the last 48 hours he has had developing abdominal pain, fever or nausea. Patient states that he lost his ability to vomit. He's been retching and feeling very nauseated. Patient states he hasn't had a bowel movement in 3 days. He does have diffuse abdominal pain. He states worse in the left lower quadrant. States the pain is constant. Patient has a long history of blood pressure issues where his blood pressure goes up and down dramatically. checked his temperature at home with a value of 100.3. Patient does not feel any constitutional symptoms. He does have a cough that is nonproductive. No chest pain however he has diffuse myalgias. No obvious sick contacts. He had his coronavirus vaccine in September. The ROS documented in this emergency department record has been reviewed and confirmed by me. Those systems with pertinent positive or negative responses have been documented in the HPI. All other systems are other negative and/or noncontributory. PHYSICAL EXAM: General Impression: Alert and oriented x3, not in acute distress HEENT: Normocephalic atraumatic, extra-ocular movements intact, pupils equal and reactive to light bilaterally, mucous membranes moist. Cardiovascular: Heart regular rate and rhythm Chest: Able to complete full sentences, no retractions, no tachypnea Abdomen: abdomen soft, diffuse tenderness worse in the left lower quadrant, non- distended, no organomegaly Musculoskeletal: Pulses present and equal in all extremities, no peripheral edema Motor: no focal deficits noted Neurological: CN II-XII grossly intact, no focal motor or sensory deficits noted Skin: Intact with no visualized rashes Psych: Normal affect and mood ED course: 75-year-old male with multiple comorbidities presents to the emergency department for a myriad of complaints. His primary complaints of abdominal pain, nausea and vomiting. Laboratory evaluation obtained. Leukocytosis of 16.0. Coag panel is negative. Metabolic panel is within acceptable limits. Urinalysis negative. Rotavirus is negative. Acute abdominal series suggest pneumonia versus atypical pneumonia. There is also concern for ileus versus enteritis. Given leukocytosis with abnormal x-ray CT was ordered showing gastroenteritis. At this point there is concern for community acquired pneumonia. Patient treated for pneumonia. EKG interpretation: Ventricular rate 94, normal sinus rhythm,. Interval 152, QRS 76, QTC 392. No OR prolongation, no QTC prolongation, no ST or T-wave changes noted. EKG compared to 08/07/2018 showing no changes. Overall, this EKG is unremarkable Patient reevaluated at bedside at 10:57 AM. Patient is well-appearing rest comfortably feels improved. Consider patient's comorbidities and initial presentation and believe patient benefit from observation admission for continued monitoring repeat CBC. Patient is agreeable to plan. - Related Data Home Medications Medication Instructions Recorded Confirmed Fluticasone Nasal [place] [Flonase 1 spray EA NOSTRIL BID 02/12/17 04/09/19 Nasal [place]] Levothyroxine Sodium [Synthroid] 125 mcg PO DAILY 02/12/17 04/09/19 Metoprolol Tartrate [Lopressor] 25 mg PO BID 07/02/17 04/09/19 Atorvastatin [Lipitor] 20 mg PO HS 07/30/17 04/09/19 Tamsulosin [Flomax] 0.4 mg PO HS 08/06/18 04/09/19 Clopidogrel [Plavix] 75 mg PO DAILY 09/10/18 04/04/19 Albuterol Inhaler (Mhu) [Ventolin 1 - 2 puff INHALATION RT-Q6H PRN 04/04/19 04/09/19 Hfa Inhaler] Budesonide-Formot 160-4.5 Mcg 2 puff INHALATION BID 04/04/19 04/09/19 [Symbicort 160-4.5 Mcg Inhaler] Midodrine [ProAmatine] 5 mg PO TID PRN 04/04/19 04/09/19 Sulfamethox-Tmp 800-160Mg [Bactrim 1 tab PO Q12HR 04/04/19 04/09/19 DS 800-160 mg] Previous Rx's Medication Instructions Recorded Aspirin 81 mg PO DAILY #30 03/21/17 predniSONE 10 mg PO DIRECTED #18 tab 08/07/18 Allergies Allergy/AdvReac Type Severity Reaction Status Date / Time No Known Allergies Allergy Verified 04/09/21 07:46 Review of Systems ROS Statement: Those systems with pertinent positive or pertinent negative responses have been documented in the HPI. ROS Other: All systems not noted in ROS Statement are negative. Past Medical History Past Medical History: Coronary Artery Disease (CAD), Cancer, Chest Pain / Angina, COPD, CVA/TIA, GERD/Reflux, Hearing Disorder / Deafness, Hyperlipidemia, Hypertension, Pneumonia, Renal Disease, Syncope, Thyroid Disorder, Vascular Disorder Additional Past Medical History / Comment(s): 2006 Tonsil/pharyngeal cancer w/ surgery/chemo/radiation, ongoing dysphagia, bilateral carotid artery disease w/ stent R side, CVA per MRI, CKD stage II, CAD with recent CABG w/ post op anemia requiring blood transfusion, diverticular dx, vertigo when first stands, constipation, hypothyroid, [place] been[employer] aides. Current lung congestion, coughing, wheezing ongoing. History of Any Multi-Drug Resistant Organisms: None Reported Past Surgical History: Coronary Bypass/CABG, Heart Catheterization, Hernia Repair, Orthopedic Surgery Additional Past Surgical History / Comment(s): 02/2017 CABG-4 vessel, angiograms, R internal caratid stented, 2005 radical neck dissection for pharyngeal cancer, L/R inguinal hernia repair, 3 sinus surgeries with benign polypectomy, colonoscopy, bilateral rotator cuff repairs. Past Anesthesia/Blood Transfusion Reactions: No Reported Reaction, Motion Sickness Past Psychological History: No Psychological Hx Reported Smoking Status: Former smoker Past Alcohol Use History: Rare Past Drug Use History: Marijuana - Past Family History Father Family Medical History: Cancer Additional Family Medical History / Comment(s): Father had lung cancer. He was a smoker. Mother Family Medical History: Congestive Heart Failure (CHF) Sister(s) Family Medical History: Cancer General Exam Limitations: physical limitation Course Vital Signs 04/09/21 04/09/21 04/09/21 07:42 08:02 08:37 Temperature 98.9 F 99.6 F 100.5 F H Pulse Rate 96 106 H Respiratory 18 18 Rate Blood Pressure 76/46 120/68 O2 Sat by Pulse 92 L 96 Oximetry 04/09/21 10:01 Temperature 99.1 F Pulse Rate 87 Respiratory 18 Rate Blood Pressure 108/62 O2 Sat by Pulse 98 Oximetry Medical Decision Making - Lab Data Result diagrams: 04/09/21 08:01 04/09/21 08:01 Lab Results 04/09/21 04/09/21 04/09/21 Range/Units 08:00 08:01 08:01 WBC 16.0 H (3.8-10.6) k/uL RBC 4.58 (4.30-5.90) m/uL Hgb 12.7 L (13.0-17.5) gm/dL Hct 39.1 (39.0-53.0) % MCV 85.4 (80.0-100.0) fL MCH 27.9 (25.0-35.0) pg MCHC 32.6 (31.0-37.0) g/dL RDW 14.6 (11.5-15.5) % Plt Count 256 (150-450) k/uL MPV 7.1 Neutrophils % 90 % Lymphocytes % 5 % Monocytes % 2 % Eosinophils % 2 % Basophils % 0 % Neutrophils # 14.4 H (1.3-7.7) k/uL Lymphocytes # 0.8 L (1.0-4.8) k/uL Monocytes # 0.4 (0-1.0) k/uL Eosinophils # 0.3 (0-0.7) k/uL Basophils # 0.0 (0-0.2) k/uL PT 12.0 (9.0-12.0) sec INR 1.2 H (<1.2) APTT 25.8 (22.0-30.0) sec Sodium (137-145) mmol/L Potassium (3.5-5.1) mmol/L Chloride (98-107) mmol/L Carbon Dioxide (22-30) mmol/L Anion Gap mmol/L BUN (9-20) mg/dL Creatinine (0.66-1.25) mg/dL Est GFR (CKD-EPI)AfAm (>60 ml/min/1.73 sqM) Est GFR (CKD-EPI)NonAf (>60 ml/min/1.73 sqM) Glucose (74-99) mg/dL Plasma Lactic Acid [place] (0.7-2.0) mmol/L Calcium (8.4-10.2) mg/dL Magnesium (1.6-2.3) mg/dL Total Bilirubin (0.2-1.3) mg/dL AST (17-59) U/L ALT (4-49) U/L Alkaline Phosphatase (38-126) U/L Troponin I (0.000-0.034) ng/mL Total Protein (6.3-8.2) g/dL Albumin (3.5-5.0) g/dL Lipase (23-300) U/L Urine Color Urine Appearance (Clear) Urine pH (5.0-8.0) Ur Specific [place] (1.001-1.035) Urine Protein (Negative) Urine Glucose (UA) (Negative) Urine Ketones (Negative) Urine Blood (Negative) Urine Nitrite (Negative) Urine Bilirubin (Negative) Urine Urobilinogen (<2.0) mg/dL Ur Leukocyte Esterase (Negative) Coronavirus (PCR) Not Detected (Not Detectd) Blood Type Blood Type Recheck Bld Type Recheck Status Antibody Screen Spec Expiration Date 04/09/21 04/09/21 04/09/21 Range/Units 08:01 08:01 08:01 WBC (3.8-10.6) k/uL RBC (4.30-5.90) m/uL Hgb (13.0-17.5) gm/dL Hct (39.0-53.0) % MCV (80.0-100.0) fL MCH (25.0-35.0) pg MCHC (31.0-37.0) g/dL RDW (11.5-15.5) % Plt Count (150-450) k/uL MPV Neutrophils % % Lymphocytes % % Monocytes % % Eosinophils % % Basophils % % Neutrophils # (1.3-7.7) k/uL Lymphocytes # (1.0-4.8) k/uL Monocytes # (0-1.0) k/uL Eosinophils # (0-0.7) k/uL Basophils # (0-0.2) k/uL PT (9.0-12.0) sec INR (<1.2) APTT (22.0-30.0) sec Sodium 134 L (137-145) mmol/L Potassium 4.2 (3.5-5.1) mmol/L Chloride 97 L (98-107) mmol/L Carbon Dioxide 28 (22-30) mmol/L Anion Gap 9 mmol/L BUN 30 H (9-20) mg/dL Creatinine 1.38 H (0.66-1.25) mg/dL Est GFR (CKD-EPI)AfAm 58 (>60 ml/min/1.73 sqM) Est GFR (CKD-EPI)NonAf 50 (>60 ml/min/1.73 sqM) Glucose 85 (74-99) mg/dL Plasma Lactic Acid [place] 1.4 (0.7-2.0) mmol/L Calcium 9.7 (8.4-10.2) mg/dL Magnesium 1.6 (1.6-2.3) mg/dL Total Bilirubin 0.7 (0.2-1.3) mg/dL AST 25 (17-59) U/L ALT 12 (4-49) U/L Alkaline Phosphatase 51 (38-126) U/L Troponin I <0.012 (0.000-0.034) ng/mL Total Protein 6.3 (6.3-8.2) g/dL Albumin 3.9 (3.5-5.0) g/dL Lipase 106 (23-300) U/L Urine Color Urine Appearance (Clear) Urine pH (5.0-8.0) Ur Specific [place] (1.001-1.035) Urine Protein (Negative) Urine Glucose (UA) (Negative) Urine Ketones (Negative) Urine Blood (Negative) Urine Nitrite (Negative) Urine Bilirubin (Negative) Urine Urobilinogen (<2.0) mg/dL Ur Leukocyte Esterase (Negative) Coronavirus (PCR) (Not Detectd) Blood Type Blood Type Recheck Bld Type Recheck Status Antibody Screen Spec Expiration Date 04/09/21 04/09/21 Range/Units 08:15 08:50 WBC (3.8-10.6) k/uL RBC (4.30-5.90) m/uL Hgb (13.0-17.5) gm/dL Hct (39.0-53.0) % MCV (80.0-100.0) fL MCH (25.0-35.0) pg MCHC (31.0-37.0) g/dL RDW (11.5-15.5) % Plt Count (150-450) k/uL MPV Neutrophils % % Lymphocytes % % Monocytes % % Eosinophils % % Basophils % % Neutrophils # (1.3-7.7) k/uL Lymphocytes # (1.0-4.8) k/uL Monocytes # (0-1.0) k/uL Eosinophils # (0-0.7) k/uL Basophils # (0-0.2) k/uL PT (9.0-12.0) sec INR (<1.2) APTT (22.0-30.0) sec Sodium (137-145) mmol/L Potassium (3.5-5.1) mmol/L Chloride (98-107) mmol/L Carbon Dioxide (22-30) mmol/L Anion Gap mmol/L BUN (9-20) mg/dL Creatinine (0.66-1.25) mg/dL Est GFR (CKD-EPI)AfAm (>60 ml/min/1.73 sqM) Est GFR (CKD-EPI)NonAf (>60 ml/min/1.73 sqM) Glucose (74-99) mg/dL Plasma Lactic Acid [place] (0.7-2.0) mmol/L Calcium (8.4-10.2) mg/dL Magnesium (1.6-2.3) mg/dL Total Bilirubin (0.2-1.3) mg/dL AST (17-59) U/L ALT (4-49) U/L Alkaline Phosphatase (38-126) U/L Troponin I (0.000-0.034) ng/mL Total Protein (6.3-8.2) g/dL Albumin (3.5-5.0) g/dL Lipase (23-300) U/L Urine Color Yellow Urine Appearance Clear (Clear) Urine pH 8.0 (5.0-8.0) Ur Specific [place] 1.011 (1.001-1.035) Urine Protein Trace H (Negative) Urine Glucose (UA) Negative (Negative) Urine Ketones Negative (Negative) Urine Blood Negative (Negative) Urine Nitrite Negative (Negative) Urine Bilirubin Negative (Negative) Urine Urobilinogen <2.0 (<2.0) mg/dL Ur Leukocyte Esterase Negative (Negative) Coronavirus (PCR) (Not Detectd) Blood Type O Negative Blood Type Recheck O Neg Bld Type Recheck Status No Antibody Screen NEGATIVE Spec Expiration Date 04/12/20212349 Disposition Clinical Impression: Pneumonia, Gastroenteritis Disposition: ADMITTED IP TO THIS HOSP Condition: Fair Referrals: Kale Fischer MD [Primary Care Provider] - 1-2 days
[2021-04-09 08:18] LABS: Basophils % (A) 0 %; Eosinophils # (A) 0.3 k/uL (0-0.7); Eosinophils % (A) 2 %; HCT 39.1 % (39.0-53.0); HGB 12.7 gm/dL (13.0-17.5); Lymphocytes # (A) 0.8 k/uL (1.0-4.8); Lymphocytes % (A) 5 %; MCH 27.9 pg (25.0-35.0); MCHC 32.6 g/dL (31.0-37.0); MCV 85.4 fL (80.0-100.0); Mean Platelet Volume 7.1; Monocytes # (A) 0.4 k/uL (0-1.0); Monocytes % (A) 2 %; Neutrophils # (A) 14.4 k/uL (1.3-7.7); Neutrophils % (A) 90 %; Platelet Count 256 k/uL (150-450); RBC 4.58 m/uL (4.30-5.90); RDW 14.6 % (11.5-15.5)
[2021-04-09 08:30] LABS: INR 1.2 (<1.2); Partial Thromboplastin Time 25.8 sec (22.0-30.0)
--- NOTE | 2021-04-09 08:33 | XR ---
EXAMINATION TYPE: XR abdomen acute w cxr DATE OF EXAM: 04/09/2021 COMPARISON: Chest 02/04/2021 HISTORY: 75-year-old male with vomiting and fever TECHNIQUE: Supine, upright, and left side down lateral decubitus views of the abdomen are obtained. FINDINGS: New interstitial densities and more focal right upper lobe opacity. Heart normal size. Median sternot toney wires and post-CABG clips. Biapical pleural-parenchymal scarring. No pleural effusion. Hyperinfla tion. No evidence for free intraperitoneal air. Chronic artery calcifications. Mildly distended solitary loop of small bowel left mid abdomen measuring up to 2.9 cm. No differentia l air-fluid levels. Scattered colonic air and mild stool remains at this time, extending distally to the rectum. No suspicious calcifications seen. No evidence for free intraperitoneal air IMPRESSION: 1. COPD with new interstitial densities and focal right upper lobe airspace disease. Correlate for co nventional pneumonia versus atypical pneumonia. 2. No evidence for free air or bowel obstruction. There may be a mild regional ileus or enteritis in the left mid abdomen.
[2021-04-09 08:35] LABS: Albumin 3.9 g/dL (3.5-5.0); Calcium 9.7 mg/dL (8.4-10.2); Magnesium 1.6 mg/dL (1.6-2.3); Potassium 4.2 mmol/L (3.5-5.1); Total Bilirubin 0.7 mg/dL (0.2-1.3); Total Protein 6.3 g/dL (6.3-8.2)
[2021-04-09] MEDS ORDERED: ACETAMINOPHEN TAB 500 MG TAB PO STA (08:39)
[2021-04-09 09:12] LABS: Appearance,Urine Clear (Clear); Bilirubin,Urine Negative (Negative); Blood,Urine Negative (Negative); Color,Urine Yellow; Glucose,Urine (UA) Negative (Negative); Ketones,Urine Negative (Negative); Leukocyte Esterase,Urine Negative (Negative); Nitrite,Urine Negative (Negative); Protein,Urine Trace (Negative); Specific Gravity,Urine 1.011 (1.001-1.035); Urobilinogen,Urine <2.0 mg/dL (<2.0)
--- NOTE | 2021-04-09 10:32 | CT ---
EXAMINATION TYPE: CT abdomen pelvis w con DATE OF EXAM: 04/09/2021 COMPARISON: Correlation CT chest 08/12/2020 HISTORY: 75-year-old male Abdominal pain TECHNIQUE: Contiguous axial scanning of the abdomen and pelvis following administration of 100 ml Iso marleny 300 IV contrast. Delayed images through the kidneys and coronal/sagittal reconstructions perform ed. CT DLP: 632.2 mGycm Automated exposure control for dose reduction was used. FINDINGS: Median sternotomy wires partially visualized. Heart normal size. Increased basilar groundglass especi ally some groundglass nodularity in the right lower lobe. Underlying emphysematous change. No pleural effusion. Mild fold thickening along the gastric fundus and proximal body. Liver is borderline enlarged at 17.1 cm. No focal lesion. No biliary ductal dilatation. Portal venous system is patent. Gallbladder is collapsed. Adrenal glands, right kidney, spleen, and pancreas within normal limits. 3.6 cm cyst centrally in the left kidney. There may be severe atherosclerotic calcifications of the bilateral renal artery origins. Prominent fluid-filled small bowel loops throughout the abdomen and pelvis. No dilated small bowel, f ree fluid, or free air. Liquid stool throughout the right hemicolon. Mild to moderate stool in the le ft side of the colon. No pericolonic inflammatory change seen. Unable to visualize the entirety of the appendix. No secondary findings of acute appendicitis in the right lower quadrant. Bladder partially distended. Prostate gland is 5.2 cm wide with central calcifications. No abnormal f luid collection in the pelvis or pelvic lymph adenopathy. Small right-sided scrotal hydrocele suggest ed. Bones: Mild to moderate degenerative change of the hips and SI joints. Hypertrophic facet arthropathy mid to lower lumbar spine. Trace grade 1 anterolisthesis L4-L5. Bulging disc L2-L3. IMPRESSION: 1. PROMINENT FLUID-FILLED SMALL BOWEL LOOPS THROUGHOUT THE ABDOMEN AND PELVIS WITH LIQUID STOOL IN TH E RIGHT SIDE OF THE COLON. SOME CORRESPONDING FOLD THICKENING ALONG THE GASTRIC FUNDUS AND PROXIMAL B SHEBA. CORRELATE FOR INFECTIOUS OR INFLAMMATORY GASTROENTERITIS. 2. INCREASED BASILAR GROUNDGLASS INCLUDING ROUND GLASS NODULARITY. BACKGROUND EMPHYSEMA. CORRELATE WI TH PATIENT'S SYMPTOMS TO EXCLUDE POSSIBILITY SUGGESTIVE ATYPICAL PNEUMONIA, ASPIRATION, OR INTERSTITI AL PNEUMONITIS. 3. INCIDENTAL: POSSIBLE SEVERE ATHEROSCLEROTIC STENOSES AT THE BILATERAL RENAL ARTERY ORIGINS. QUERY ANY HISTORY OF HYPERTENSION.
[2021-04-09] MEDS ORDERED: cefTRIAXone IN SWFI 1,000 MG/10 ML SYRINGE IVP STA (10:51)
[2021-04-09] MEDS ORDERED: AZITHROMYCIN 500 MG in SODIUM CHLORIDE 0.9% 250 ML IVPB STA (10:51)
[2021-04-09] MEDS ORDERED: ACETAMINOPHEN TAB 325 MG TAB PO PRN (10:56)
[2021-04-09] MEDS ORDERED: NALOXONE 0.4 MG/ML 1 ML VIAL IV PRN (10:56)
[2021-04-09] MEDS: SODIUM CHLORIDE 0.9% 1,000 ML IV SCH (11:23)
[2021-04-09] MEDS: AMPICILLIN-SULBACTAM 3 GM in SODIUM CHLORIDE 0.9% 100 ML IVPB SCH (17:44)
--- NOTE | 2021-04-09 18:40 | P.HPIM ---
History of Present Illness H&P Date: 04/09/21 Tenzin Burgos, is a 75-year-old male who presented to [facility] emergency room with a chief complaint of fever nausea and severe abdominal pain He was evaluated in the emergency room vital examination on presentation revealed a temperature of 100.5 pulse 106 respiration 18 blood pressure 120/68 pulse ox 96% on 2 L nasal cannula and 92% on room air Laboratory data reveals a white blood count of 16.0 hemoglobin 12.7 platelet count 256 sodium 138 potassium 4.2 chloride 97 BUN 30 creatinine 1.38 Testing in the emergency room revealed computed tomography scan of the abdomen and pelvis revealed prominent fluid-filled small bowel loops throughout the abdomen suggestive of inflammatory or infectious gastroenteritis, CT also revealed groundglass nodularity suggestive of atypical pneumonia aspiration or interstitial pneumonitis Patient was admitted to medical floor for further evaluation and treatment Past medical history is significant for 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, history of hypertention, history of hyperlipidemia, history of coronary artery disease, history of COPD, history of gastroesophageal reflux disease Past Medical History Past Medical History: Coronary Artery Disease (CAD), Cancer, Chest Pain / Angina, COPD, CVA/TIA, GERD/Reflux, Hearing Disorder / Deafness, Hyperlipidemia, Hypertension, Pneumonia, Renal Disease, Syncope, Thyroid Disorder, Vascular Disorder Additional Past Medical History / Comment(s): 2006 Tonsil/pharyngeal cancer w/ surgery/chemo/radiation, ongoing dysphagia, bilateral carotid artery disease w/ stent R side, CVA per MRI, CKD stage II, CAD with recent CABG w/ post op anemia requiring blood transfusion, diverticular dx, vertigo when first stands, constipation, hypothyroid, [employer]. Current lung congestion, coughing, wheezing ongoing. History of Any Multi-Drug Resistant Organisms: None Reported Past Surgical History: Coronary Bypass/CABG, Heart Catheterization, Hernia Repair, Orthopedic Surgery Additional Past Surgical History / Comment(s): 02/2017 CABG-4 vessel, angiograms, R internal caratid stented, 2005 radical neck dissection for pharyngeal cancer, L/R inguinal hernia repair, 3 sinus surgeries with benign polypectomy, c olonoscopy, bilateral rotator cuff repairs. Past Anesthesia/Blood Transfusion Reactions: No Reported Reaction, Motion Sickness Past Psychological History: No Psychological Hx Reported Additional Psychological History / Comment(s): Pt resides with his spouse. He is independent. He is a [employer] . He was stationed in [place]. Smoking Status: Former smoker Past Alcohol Use History: Rare Additional Past Alcohol Use History / Comment(s): Pt started smoking occasional cigars/pipe in 1964 and quit in 1984. Past Drug Use History: Marijuana - Past Family History Father Family Medical History: Cancer Additional Family Medical History / Comment(s): Father had lung cancer. He was a smoker. Mother Family Medical History: Congestive Heart Failure (CHF) Sister(s) Family Medical History: Cancer Medications and Allergies Home Medications Medication Instructions Recorded Confirmed Type Fluticasone Nasal [place] [Flonase 1 spray EA NOSTRIL BID PRN 02/12/17 04/09/21 History Nasal [place]] Levothyroxine Sodium [Synthroid] 125 mcg PO DAILY 02/12/17 04/09/21 History Aspirin 81 mg PO DAILY #30 03/21/17 04/09/21 Rx Metoprolol Tartrate [Lopressor] 25 mg PO BID PRN 07/02/17 04/09/21 History Clopidogrel [Plavix] 75 mg PO DAILY 09/10/18 04/09/21 History Midodrine [ProAmatine] 5 mg PO TID PRN 04/04/19 04/09/21 History Albuterol Inhaler [Ventolin Hfa 1 - 2 puff INHALATION RT-Q6H PRN 04/09/21 04/09/21 History Inhaler] Atorvastatin [Lipitor] 20 mg PO DAILY 04/09/21 04/09/21 History Docusate [Colace] 100 mg PO BID 04/09/21 04/09/21 History Finasteride [Proscar] 5 mg PO DAILY 04/09/21 04/09/21 History Ipratropium-Albuterol Nebulize 1 vial INHALATION RT-QID PRN 04/09/21 04/09/21 History [Duoneb 0.5 mg-3 mg/3 ml Soln] Montelukast [Singulair] 10 mg PO HS 04/09/21 04/09/21 History Pantoprazole [Protonix] 40 mg PO BID 04/09/21 04/09/21 History amLODIPine [Norvasc] 5 mg PO DAILY PRN 04/09/21 04/09/21 History predniSONE 5 mg PO DAILY 04/09/21 04/09/21 History Allergies Allergy/AdvReac Type Severity Reaction Status Date / Time No Known Allergies Allergy Verified 04/09/21 07:46 Physical Exam Vitals: Vital Signs Temp Pulse Resp BP Pulse Ox 04/09/21 10:01 99.1 F 87 18 108/62 98 04/09/21 08:37 100.5 F H 106 H 18 120/68 96 04/09/21 08:02 99.6 F 04/09/21 07:42 98.9 F 96 18 76/46 92 L Intake and Output 04/08/21 04/09/21 04/09/21 22:59 06:59 14:59 Other: Weight 56.699 kg In general patient is alert and oriented x 3 in no distress HEENT head normocephalic and atraumatic Neck is supple no JVD no goiter no lymphadenopathy no carotid bruit Chest examination is clear to auscultation no crackles no wheezing Cardiac exam reveals regular heart sounds S1 and S2 no gallops no murmurs Abdomen is soft with mild diffuse tenderness no organomegaly no rigidity or rebound and no palpable masses Extremity exam reveals no edema no cyanosis or clubbing Neurological examination reveals no gross focal deficits Results CBC & Chem 7: 04/09/21 08:01 04/09/21 08:01 Labs: Abnormal Lab Results - Last 24 Hours (Table) 04/09/21 04/09/21 04/09/21 Range/Units 08:01 08:01 08:01 WBC 16.0 H (3.8-10.6) k/uL Hgb 12.7 L (13.0-17.5) gm/dL Neutrophils # 14.4 H (1.3-7.7) k/uL Lymphocytes # 0.8 L (1.0-4.8) k/uL INR 1.2 H (<1.2) Sodium 134 L (137-145) mmol/L Chloride 97 L (98-107) mmol/L BUN 30 H (9-20) mg/dL Creatinine 1.38 H (0.66-1.25) mg/dL Urine Protein (Negative) 04/09/21 Range/Units 08:15 WBC (3.8-10.6) k/uL Hgb (13.0-17.5) gm/dL Neutrophils # (1.3-7.7) k/uL Lymphocytes # (1.0-4.8) k/uL INR (<1.2) Sodium (137-145) mmol/L Chloride (98-107) mmol/L BUN (9-20) mg/dL Creatinine (0.66-1.25) mg/dL Urine Protein Trace H (Negative) Thrombosis Risk Factor Assmnt - Choose All That Apply Each Factor Represents 1 point: Serious lung disease incl. pneumonia (< 1month) Each Risk Factor Represents 3 Points: Age 75 years or older Thrombosis Risk Factor Assessment Total Risk Factor Score: 4 Thrombosis Risk Factor Assessment Level: Moderate Risk Assessment and Plan Plan: Severe abdominal pain cause is unclear with abnormal computed tomography scan of the abdomen and pelvis at this time patient was started on IV antibiotic eye will add IV Flagyl and consult infectious disease Groundglass appearance of the chest will consult pulmonary Leukocytosis, could be related to infectious process in the abdomen or in the lungs Will monitor closely continue with IV antibiotic at this time Underlying history of COPD Previous history of range she had cancer with history of surgery, chemotherapy and radiation therapy in 2005 Underlying history of hypertension Underlying history of hyperlipidemia Underlying history of chronic kidney disease stage II
[2021-04-09] MEDS: IPRATROPIUM-ALBUTEROL 3 ML NEB INHALATION PRN (21:13)
--- NOTE | 2021-04-09 23:42 | P.CONS ---
History of Present Illness - Reason for Consult Consult date: 04/09/21 Gastroenteritis/pneumonia Requesting physician: Kale Fischer - Chief Complaint vomiting and cough x few days - History of Present Illness History of present illness : Patient is a 75-year-old male past medical history significant for COPD pneumonia in this patient presented to hospital this morning for evaluation of weakness patient did have a few episodes of vomiting yesterday patient also complaining of wheezing of the chest he did have a cough which is moderate intensity and is bringing up some brownish sputum no hemoptysis denies any choking on the food no abdominal pain or any diarrhea with the symptom the patient was evaluated by the ER physician on arrival to the ER patient was afebrile subsequently spiked a fever 100.5 F patient was mildly hypoxic with O2 sats of 92% requiring supplemental oxygen did have elevated white count 16,000 BUN/creatinine was mildly elevated enzymes are normal urine was negative cisneros PCR was negative patient did have a CT of abdominal pelvis prominent fluid-filled small bowel loops throughout the abdomen and pelvis with liquid stools some bibasilar groundglass opacity patient was admitted to the hospital infectious was consulted for further management of antibiotic therapy patient received a dose of Rocephin and Zithromax in the ER Review of system: Positive point has been mentioned in HPI rest of the systems are negative Past medical history : Reviewed, documented below Past surgical history : Reviewed, documented below Social history: Reviewed, documented below Medications: Reviewed, as documented below GENERAL DESCRIPTION: Elderly male lying in bed, no distress. No tachypnea or accessory muscle of respiration use. HEENT: Shows Pallor , no scleral icterus. Oral mucous membrane is dry. NECK: Trachea central, no thyromegaly. LUNGS: Unlabored breathing. Coarse breath sounds in the bases bilaterally. No wheeze or crackle. HEART: S1, S2, regular rate and rhythm. ABDOMEN: Soft, no tenderness , guarding or rigidity EXTREMITIES: No edema of feet. SKIN: No rash, no masses palpable. NEUROLOGICAL: The patient is awake, alert, oriented x3, mood and affect normal. LABS AND RADIOLOGY: Reviewed results see below Assessment : Patient presented to hospital with weakness and vomiting increasing shortness of breath and wheezing cough productive of brownish sputum with concern for possible pneumonia question of aspiration etiology in this patient also have evidence of a small bowel ileus and will need to hold for the enteric gram-negative with the likely pathogen Plan: 1-we will try to obtain a sputum for Gram stain and culture 2-we will check procalcitonin and CRP level 3-start the patient on Unasyn 3 g every 6 hours We will follow on clinical condition and cultures to further adjust medication if needed Thank you for this consultation we will follow the patient along with you Past Medical History Past Medical History: Coronary Artery Disease (CAD), Cancer, Chest Pain / Angina, COPD, CVA/TIA, GERD/Reflux, Hearing Disorder / Deafness, Hyperlipidemia, Hypertension, Pneumonia, Renal Disease, Syncope, Thyroid Disorder, Vascular Disorder Additional Past Medical History / Comment(s): 2005 Tonsil/pharyngeal cancer w/ surgery/chemo/radiation, ongoing dysphagia, bilateral carotid artery disease w/ stent R side, CVA per MRI, CKD stage II, CAD with recent CABG w/ post op anemia requiring blood transfusion, diverticular dx, vertigo when first stands, constipation, hypothyroid, [employer]. Current lung congestion, coughing, wheezing ongoing. History of Any Multi-Drug Resistant Organisms: None Reported Past Surgical History: Coronary Bypass/CABG, Heart Catheterization, Hernia Repair, Orthopedic Surgery Additional Past Surgical History / Comment(s): 02/2017 CABG-4 vessel, angiograms, R internal caratid stented, 2005 radical neck dissection for pharyngeal cancer, L/R inguinal hernia repair, 3 sinus surgeries with benign polypectomy, colonoscopy, bilateral rotator cuff repairs. Past Anesthesia/Blood Transfusion Reactions: No Reported Reaction, Motion Sickness Past Psychological History: No Psychological Hx Reported Additional Psychological History / Comment(s): Pt resides with his spouse. He is independent. He is a [employer] . He was stationed in [facility]. Smoking Status: Former smoker Past Alcohol Use History: Rare Additional Past Alcohol Use History / Comment(s): Pt started smoking occasional cigars/pipe in 1965 and quit in 1984. Past Drug Use History: Marijuana - Past Family History Father Family Medical History: Cancer Additional Family Medical History / Comment(s): Father had lung cancer. He was a smoker. Mother Family Medical History: Congestive Heart Failure (CHF) Sister(s) Family Medical History: Cancer Medications and Allergies Home Medications Medication Instructions Recorded Confirmed Type Fluticasone Nasal [place] [Flonase 1 spray EA NOSTRIL BID PRN 02/12/17 04/09/21 History Nasal [place]] Levothyroxine Sodium [Synthroid] 125 mcg PO DAILY 02/12/17 04/09/21 History Aspirin 81 mg PO DAILY #30 03/21/17 04/09/21 Rx Metoprolol Tartrate [Lopressor] 25 mg PO BID PRN 07/02/17 04/09/21 History Clopidogrel [Plavix] 75 mg PO DAILY 09/10/18 04/09/21 History Midodrine [ProAmatine] 5 mg PO TID PRN 04/04/19 04/09/21 History Albuterol Inhaler [Ventolin Hfa 1 - 2 puff INHALATION RT-Q6H PRN 04/09/21 04/09/21 History Inhaler] Atorvastatin [Lipitor] 20 mg PO DAILY 04/09/21 04/09/21 History Docusate [Colace] 100 mg PO BID 04/09/21 04/09/21 History Finasteride [Proscar] 5 mg PO DAILY 04/09/21 04/09/21 History Ipratropium-Albuterol Nebulize 1 vial INHALATION RT-QID PRN 04/09/21 04/09/21 History [Duoneb 0.5 mg-3 mg/3 ml Soln] Montelukast [Singulair] 10 mg PO HS 04/09/21 04/09/21 History Pantoprazole [Protonix] 40 mg PO BID 04/09/21 04/09/21 History amLODIPine [Norvasc] 5 mg PO DAILY PRN 04/09/21 04/09/21 History predniSONE 5 mg PO DAILY 04/09/21 04/09/21 History Allergies Allergy/AdvReac Type Severity Reaction Status Date / Time No Known Allergies Allergy Verified 04/09/21 07:46 Physical Exam Vitals: Vital Signs Temp Pulse Resp BP Pulse Ox 04/09/21 10:01 99.1 F 87 18 108/62 98 04/09/21 08:37 100.5 F H 106 H 18 120/68 96 04/09/21 08:02 99.6 F 04/09/21 07:42 98.9 F 96 18 76/46 92 L Intake and Output 04/08/21 04/09/21 04/09/21 22:59 06:59 14:59 Intake Total 300 Balance 300 Intake: Intake, IV Titration 300 Amount Sodium Chloride 0.9% 1, 300 000 ml @ 75 mls/hr IV . [id number] [facility] Rx#:[id number] Other: Weight 56.699 kg Results CBC & Chem 7: 04/09/21 08:01 04/09/21 08:01 Labs: Abnormal Lab Results - Last 24 Hours (Table) 04/09/21 04/09/21 04/09/21 Range/Units 08:01 08:01 08:01 WBC 16.0 H (3.8-10.6) k/uL Hgb 12.7 L (13.0-17.5) gm/dL Neutrophils # 14.4 H (1.3-7.7) k/uL Lymphocytes # 0.8 L (1.0-4.8) k/uL INR 1.2 H (<1.2) Sodium 134 L (137-145) mmol/L Chloride 97 L (98-107) mmol/L BUN 30 H (9-20) mg/dL Creatinine 1.38 H (0.66-1.25) mg/dL Urine Protein (Negative) 04/09/21 Range/Units 08:15 WBC (3.8-10.6) k/uL Hgb (13.0-17.5) gm/dL Neutrophils # (1.3-7.7) k/uL Lymphocytes # (1.0-4.8) k/uL INR (<1.2) Sodium (137-145) mmol/L Chloride (98-107) mmol/L BUN (9-20) mg/dL Creatinine (0.66-1.25) mg/dL Urine Protein Trace H (Negative)
[2021-04-10] MEDS: AMPICILLIN-SULBACTAM 3 GM in SODIUM CHLORIDE 0.9% 100 ML IVPB SCH ×5 (00:03→22:46)
[2021-04-10] MEDS: metroNIDAZOLE-NS PMX 500 MG in SALINE 1 100ML.BAG IVPB SCH ×3 (00:56→16:00)
[2021-04-10] MEDS: SODIUM CHLORIDE 0.9% 1,000 ML IV SCH ×2 (00:56→15:10)
[2021-04-10] MEDS: IPRATROPIUM-ALBUTEROL 3 ML NEB INHALATION PRN (07:55)
--- NOTE | 2021-04-10 10:34 | P.PN ---
Subjective Progress Note Date: 04/10/21 Tenzin Burgos, is a 75-year-old male who presented to [facility] emergency room with a chief complaint of fever nausea and severe abdominal pain He was evaluated in the emergency room vital examination on presentation revealed a temperature of 100.5 pulse 106 respiration 18 blood pressure 120/68 pulse ox 96% on 2 L nasal cannula and 92% on room air Laboratory data reveals a white blood count of 16.0 hemoglobin 12.7 platelet count 256 sodium 138 potassium 4.2 chloride 97 BUN 30 creatinine 1.38 Testing in the emergency room revealed computed tomography scan of the abdomen and pelvis revealed prominent fluid-filled small bowel loops throughout the abdomen suggestive of inflammatory or infectious gastroenteritis, CT also revealed groundglass nodularity suggestive of atypical pneumonia aspiration or interstitial pneumonitis Patient was admitted to medical floor for further evaluation and treatment Past medical history is significant for 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 On 04/10/2021 Patient was seen and examined on the medical floor, he is alert and oriented x 3 in no distress, he is complaining of abdominal pain and occasional cough otherwise he denies any complaints there is no fever or chills no headache or dizziness no chest pain no shortness of breath no palpitation no nausea or vomiting, no diarrhea no blood in the stools no burning with urination no frequency or urgency and no hematuria, there is no weakness or numbness in any of the extremities no change in vision speech or gait. Objective - Vital Signs Vital signs: Vital Signs Temp 98.4 F 04/10/21 07:00 Pulse 81 04/10/21 08:07 Resp 17 04/10/21 07:00 BP 141/73 04/10/21 07:00 Pulse Ox 100 04/10/21 07:58 Intake & Output 04/09/21 04/10/21 04/10/21 18:59 06:59 18:59 Intake Total 300 358 Output Total 800 Balance 300 -800 358 Weight 56.699 kg Intake: Intake, IV Titration 300 Amount Sodium Chloride 0.9% 1, 300 000 ml @ 75 mls/hr IV . [id number] [facility] Rx#:[id number] Oral 358 Output: Urine 800 Other: # Voids 1 - Exam In general patient is alert and oriented x 3 in no distress HEENT head normocephalic and atraumatic Neck is supple no JVD no goiter no lymphadenopathy no carotid bruit Chest examination is clear to auscultation no crackles no wheezing Cardiac exam reveals regular heart sounds S1 and S2 no gallops no murmurs Abdomen is soft with mild diffuse tenderness no organomegaly no rigidity or rebound and no palpable masses Extremity exam reveals no edema no cyanosis or clubbing Neurological examination reveals no gross focal deficits - Labs CBC & Chem 7: 04/09/21 08:01 04/09/21 08:01 Assessment and Plan Plan: Severe abdominal pain cause is unclear with abnormal computed tomography scan of the abdomen and pelvis at this time patient was started on IV antibiotic eye will add IV Flagyl and consult infectious disease Groundglass appearance of the chest will consult pulmonary Leukocytosis, could be related to infectious process in the abdomen or in the lungs Will monitor closely continue with IV antibiotic at this time Underlying history of COPD Previous history of range she had cancer with history of surgery, chemotherapy and radiation therapy in 2005 Underlying history of hypertension Underlying history of hyperlipidemia Underlying history of chronic kidney disease stage II
[2021-04-10] MEDS ORDERED: ALBUTEROL HFA INHALER INHALATION PRN (10:36)
[2021-04-10] MEDS ORDERED: MIDODRINE 5 MG TAB PO PRN (10:36)
[2021-04-10] MEDS ORDERED: IPRATROPIUM-ALBUTEROL 3 ML NEB INHALATION PRN (10:36)
[2021-04-10] MEDS ORDERED: FLUTICASONE 50MCG/SPRAY NASAL 16GM EA NOSTRIL PRN (10:36)
[2021-04-10] MEDS ORDERED: METOPROLOL TARTRATE 25 MG TAB PO PRN (10:36)
[2021-04-10] MEDS ORDERED: predniSONE 5 MG TAB PO SCH (10:45)
[2021-04-10 11:03] LABS: Basophils # (A) 0.07 X 10*3/uL (0.00-0.10); Basophils % (A) 0.4 %; Eosinophils # (A) 1.15 X 10*3/uL (0.04-0.35); Eosinophils % (A) 7.3 %; HCT 33.9 % (39.6-50.0); HGB 10.8 g/dL (13.0-17.0); Lymphocytes # (A) 1.36 X 10*3/uL (0.90-5.00); Lymphocytes % (A) 8.7 %; MCH 27.8 pg (27.0-32.0); MCHC 31.9 g/dL (32.0-37.0); MCV 87.1 fL (80.0-97.0); Monocytes # (A) 0.68 X 10*3/uL (0.20-1.00); Monocytes % (A) 4.3 %; Neutrophils # (A) 12.31 X 10*3/uL (1.80-7.70); Neutrophils % (A) 78.8 %; Platelet Count 211 X 10*3/uL (140-440); RBC 3.89 X 10*6/uL (4.40-5.60); RDW 14.6 % (11.5-14.5); WBC 15.65 X 10*3/uL (4.50-10.00)
[2021-04-10] MEDS: IPRATROPIUM-ALBUTEROL 3 ML NEB INHALATION SCH ×3 (11:22→20:47)
--- NOTE | 2021-04-10 11:54 | P.CNPUL ---
History of Present Illness Consult date: 04/10/21 Requesting physician: Kale Fischer Reason for consult: dyspnea, cough, COPD, hypoxemia, pneumonia, abnormal CXR/CT Chief complaint: Shortness of breath, cough, phlegm production. History of present illness: Pulmonary/critical care consult dated 04/10/2021. 75-year-old male who is brought to the emergency room, and evaluated on April 09. We see him up and this [address] The patient comes in complaining of abdominal pain, fever, nausea, shortness of breath, cough, and phlegm production. He has a history of tonsillar cancer, coronary disease, COPD, hypertension, hyperlipidemia, and previous bypass grafting. According to his , he started getting ill on Sunday. Prior to that he was doing reasonably well. He saw my partner back in January, at that time was doing well from the lung standpoint. The evaluation in the emergency room included blood work, and various scans. His chest x-ray revealed a infiltrate in the right upper lobe. He was told in the ER that he had pneumonia. In addition, belly scans revealed evidence of possible gastroenteritis. Currently, from the pulmonary standpoint, he is feeling a bit better. We were consulted primarily for pneumonia and COPD exacerbation. White count is 15.65, hemoglobin 10.8, hematocrit 33.9, and platelet count 211,000. Sodium 134, potassium 4.2, chlorides 97, CO2 28, anion gap 9, BUN 30, creatinine 1.38. Urine was negative and coronavirus testing was negative. X-rays and CAT scans have been reviewed. Review of Systems REVIEW OF SYSTEMS: CONSTITUTIONAL: Fever. NEUROLOGIC: [ Negative.] HEENT: [ Negative.] CARDIAC: [Negative.] PULMONARY: Shortness of breath, cough, chest tightness, wheezing, and phlegm production. GI: Nausea, vomiting, diarrhea, and abdominal cramping. : [Negative.] RHEUMATOLOGIC: [ Negative.] IMMUNOLOGIC: [ Negative.] ENDOCRINE: [Negative. 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 Current lung congestion, coughing, wheezing ongoing. History of Any Multi-Drug Resistant Organisms: None Reported Past Surgical History: Coronary Bypass/CABG, Heart Catheterization, Hernia Repair, Orthopedic Surgery Additional Past Surgical History / Comment(s): 02/2017 CABG-4 vessel, angiograms, R internal caratid stented, 2005 radical neck dissection for pharyngeal cancer, L/R inguinal hernia repair, 3 sinus surgeries with benign polypectomy, colonoscopy, bilateral rotator cuff repairs. Past Anesthesia/Blood Transfusion Reactions: No Reported Reaction, Motion Sickness Past Psychological History: No Psychological Hx Reported Additional Psychological History / Comment(s): Pt resides with his spouse. He is independent. He is a [employer] . He was stationed in [facility]. Smoking Status: Former smoker Past Alcohol Use History: Rare Additional Past Alcohol Use History / Comment(s): Pt started smoking occasional cigars/pipe in 1964 and quit in 1984. Past Drug Use History: Marijuana - Past Family History Father Family Medical History: Cancer Additional Family Medical History / Comment(s): Father had lung cancer. He was a smoker. Mother Family Medical History: Congestive Heart Failure (CHF) Sister(s) Family Medical History: Cancer Medications and Allergies Home Medications Medication Instructions Recorded Confirmed Type Fluticasone Nasal [place] [Flonase 1 spray EA NOSTRIL BID PRN 02/12/17 04/09/21 History Nasal [place]] Levothyroxine Sodium [Synthroid] 125 mcg PO DAILY 02/12/17 04/09/21 History Aspirin 81 mg PO DAILY #30 03/21/17 04/09/21 Rx Metoprolol Tartrate [Lopressor] 25 mg PO BID PRN 07/02/17 04/09/21 History Clopidogrel [Plavix] 75 mg PO DAILY 09/10/18 04/09/21 History Midodrine [ProAmatine] 5 mg PO TID PRN 04/04/19 04/09/21 History Albuterol Inhaler [Ventolin Hfa 1 - 2 puff INHALATION RT-Q6H PRN 04/09/21 04/09/21 History Inhaler] Atorvastatin [Lipitor] 20 mg PO DAILY 04/09/21 04/09/21 History Docusate [Colace] 100 mg PO BID 04/09/21 04/09/21 History Finasteride [Proscar] 5 mg PO DAILY 04/09/21 04/09/21 History Ipratropium-Albuterol Nebulize 1 vial INHALATION RT-QID PRN 04/09/21 04/09/21 History [Duoneb 0.5 mg-3 mg/3 ml Soln] Montelukast [Singulair] 10 mg PO HS 04/09/21 04/09/21 History Pantoprazole [Protonix] 40 mg PO BID 04/09/21 04/09/21 History amLODIPine [Norvasc] 5 mg PO DAILY PRN 04/09/21 04/09/21 History predniSONE 5 mg PO DAILY 04/09/21 04/09/21 History Allergies Allergy/AdvReac Type Severity Reaction Status Date / Time No Known Allergies Allergy Verified 04/09/21 07:46 Physical Exam Osteopathic Statement: *. No significant issues noted on an osteopathic structural exam other than those noted in the History and Physical/Consult. Vitals: Vital Signs Temp Pulse Pulse Pulse Resp BP Pulse Ox 04/10/21 11:39 96 04/10/21 11:33 80 04/10/21 11:22 79 04/10/21 08:07 81 04/10/21 07:58 80 100 04/10/21 07:00 98.4 F 83 17 141/73 99 04/10/21 02:00 22 04/10/21 01:56 98.3 F 79 22 139/72 97 04/09/21 21:14 84 04/09/21 21:07 79 04/09/21 18:50 98.4 F 79 24 125/71 97 04/09/21 15:00 97.9 F 75 16 121/69 95 Intake and Output 04/09/21 04/10/21 04/10/21 22:59 06:59 14:59 Intake Total 358 Output Total 800 Balance -800 358 Intake: Oral 358 Output: Urine 800 Other: # Voids 1 No acute distress, oriented 3. Currently on 2 L. Saturations 96-98%. No conversational dyspnea or use of accessory muscles. HEENT examination is grossly unremarkable. Neck supple. Full range of motion. No adenopathy thyromegaly or neck vein distention. Cardiovascular examination reveals regular rhythm rate. S1-S2 normal. No S3 or S4. No discernible murmur noted. Heart sounds are distant. Heart rate 80 bpm. Lungs reveal coarse bilateral expiratory wheezes and rhonchi. There is prolongation on forced maneuver. Adventitious lung sounds are more prominent on forced maneuver. Breath sounds are equal bilaterally. There are no crackles. Abdomen soft bowel sounds are heard. No masses or tenderness. Extremities are intact. No cyanosis clubbing or edema. Skin is without rash or lesion. Neurologic examination is brief but nonfocal. Results - Laboratory Findings CBC and BMP: 04/10/21 04:13 04/09/21 08:01 PT/INR, D-dimer PT 12.0 sec (9.0-12.0) 04/09/21 08:01 INR 1.2 (<1.2) H 04/09/21 08:01 Abnormal lab findings: Abnormal Labs 04/09/21 04/09/21 04/09/21 08:01 08:01 08:01 WBC 16.0 H RBC Hgb 12.7 L Hct MCHC RDW Immature Gran # Neutrophils # 14.4 H Lymphocytes # 0.8 L Eosinophils # INR 1.2 H Sodium 134 L Chloride 97 L BUN 30 H Creatinine 1.38 H Urine Protein 04/09/21 04/10/21 08:15 04:13 WBC 15.65 H RBC 3.89 L Hgb 10.8 L Hct 33.9 L MCHC 31.9 L RDW 14.6 H Immature Gran # 0.08 H Neutrophils # 12.31 H Lymphocytes # Eosinophils # 1.15 H INR Sodium Chloride BUN Creatinine Urine Protein Trace H - Diagnostic Findings Chest x-ray: image reviewed Assessment and Plan Assessment: Acute exacerbation of COPD complicated by right upper lobe pneumonia. Abdominal cramping, nausea, vomiting, diarrhea, which may relate to an inf ectious or inflammatory gastroenteritis/colitis. History of coronary artery disease, status post bypass grafting. Bilateral carotid artery stenosis, status post stenting. History of tonsillar/pharyngeal cancer, status post surgery, as well as chemoradiation. History of CVA. History of angina pectoris. History of GERD. Deafness. Hyperlipidemia. Hypertension. Hypothyroidism. History of diverticular disease. Plan: Plan dated 04/10/2021. The patient is placed on albuterol sulfate and ipratropium bromide, 4 times a day and when necessary. In addition, the patient get Solu-Medrol 60 mg IV push every 6 hours, as well as Pulmicort 1 mg and formoterol 20 g twice a day. The patient is currently on Unasyn as per infectious diseases. The patient is also receiving Flagyl for his GI issues. We will continue to follow. Prognosis is guarded. Additional recommendations and suggestions are forthcoming. Time with Patient: Greater than 30
[2021-04-10 12:05] LABS: African American GFR (CKD) 61.9 (60.0-200.0); Albumin 3.5 g/dL (3.80-4.90); Albumin/Globulin Ratio 1.75 (1.60-3.17); Anion Gap 7.2 mmol/L (4.00-12.00); Calcium 8.4 mg/dL (8.7-10.3); Carbon Dioxide 28.8 mmol/L (21.6-31.8); Non-African American GFR(CKD) 53.4 (60.0-200.0); Potassium 4.3 mmol/L (3.5-5.5); Total Bilirubin 0.8 mg/dL (0.2-1.2); Total Protein 5.5 g/dL (6.2-8.2)
[2021-04-10] MEDS: LEVOTHYROXINE 125 MCG TAB PO SCH (12:21)
[2021-04-10] MEDS: DOCUSATE 100 MG CAP PO SCH ×2 (12:21→22:46)
[2021-04-10] MEDS: FINASTERIDE 5 MG TAB PO SCH (12:21)
[2021-04-10] MEDS: CLOPIDOGREL 75 MG TAB PO SCH (12:21)
[2021-04-10] MEDS: PANTOPRAZOLE 40 MG TABLET PO SCH ×2 (12:31→22:46)
[2021-04-10] MEDS: methylPREDNISolone SOD SUCCI 125 MG/2 ML VIAL IV SCH ×2 (12:45→17:59)
--- NOTE | 2021-04-10 19:30 | PN ---
PROGRESS NOTE DATE OF SERVICE: 04/10/2021. FOR FOLLOWUP: Fever, possible pneumonia. The patient is afebrile. The patient is feeling slightly better. However, still complaining of some abdominal pain, nausea but no vomiting did not have any bowel movement. No chest pain or shortness of breath. He did have a cough and is bringing up sputum. PHYSICAL EXAMINATION: Blood pressure 110/63 with a pulse of 94, temperature 98.4. General description is an elderly male up in the bed in no distress. Respiratory system: Unlabored breathing, decreased intensity of breath sounds. No wheeze. Heart S1, S2. Regular rate. Abdomen: Soft, no tenderness. LAB: Hemoglobin 12, white count 15. BUN of 26, creatinine 1.3. DIAGNOSTIC IMPRESSION AND PLAN: Patient admitted to the hospital with vomiting, wheezing, cough, concerning for pneumonia, question of aspiration etiology. Patient is covered with Unasyn. Will try to follow sputum and adjust antibiotic further if needed. Continue supportive care. MMODL / IJN: [id number] /
[2021-04-10] MEDS: BUDESONIDE 1 MG/2 ML NEBU INHALATION SCH (20:46)
[2021-04-10] MEDS: FORMOTEROL FUMARATE 20 MCG/2 ML NEBU INHALATION SCH (20:46)
[2021-04-10] MEDS: MONTELUKAST 10 MG TAB PO SCH (22:46)
[2021-04-11] MEDS: methylPREDNISolone SOD SUCCI 125 MG/2 ML VIAL IV SCH ×5 (00:52→23:26)
[2021-04-11] MEDS: metroNIDAZOLE-NS PMX 500 MG in SALINE 1 100ML.BAG IVPB SCH ×3 (00:52→16:07)
[2021-04-11] MEDS: SODIUM CHLORIDE 0.9% 1,000 ML IV SCH ×2 (02:48→17:06)
[2021-04-11] MEDS: AMPICILLIN-SULBACTAM 3 GM in SODIUM CHLORIDE 0.9% 100 ML IVPB SCH ×4 (06:18→23:26)
[2021-04-11] MEDS: LEVOTHYROXINE 125 MCG TAB PO SCH (06:19)
[2021-04-11] MEDS: IPRATROPIUM-ALBUTEROL 3 ML NEB INHALATION SCH ×4 (08:06→19:54)
[2021-04-11] MEDS: FORMOTEROL FUMARATE 20 MCG/2 ML NEBU INHALATION SCH ×2 (08:06→19:54)
[2021-04-11] MEDS: BUDESONIDE 1 MG/2 ML NEBU INHALATION SCH ×2 (08:07→19:54)
[2021-04-11] MEDS: CLOPIDOGREL 75 MG TAB PO SCH (08:16)
[2021-04-11] MEDS: ASPIRIN 81 MG PO SCH (08:16)
[2021-04-11] MEDS: ATORVASTATIN 20 MG TAB PO SCH (08:16)
[2021-04-11] MEDS: FINASTERIDE 5 MG TAB PO SCH (08:16)
[2021-04-11] MEDS: DOCUSATE 100 MG CAP PO SCH ×2 (08:16→20:19)
[2021-04-11] MEDS: PANTOPRAZOLE 40 MG TABLET PO SCH ×2 (08:16→20:19)
[2021-04-11] MEDS: amLODIPine 5 MG TAB PO PRN (09:43)
--- NOTE | 2021-04-11 14:00 | P.PN ---
Subjective Progress Note Date: 04/11/21 Principal diagnosis: Dyspnea, cough, COPD, pneumonia On 04/11/2001 patient seen in follow-up on medical surgical floor. He is awake and alert, he states he still wheezy and congested, but overall feeling better, he is coughing up some foodstuff material, not so much phlegm. He states he is having symptoms of GERD, and in his cup where he has been spitting up, it appears that possibly bringing up undigested food. No complaints of chest discomfort, he is currently on 2-3 L with pulse ox of 90%, his been afebrile. Hemodynamically has been stable. His blood culture has shown no growth, his sputum is showing presumptive staph aureus. D service is following, and patient 's current antibiotic coverage includes Unasyn and Flagyl, patient remains on IV steroids Solu-Medrol 60 mg every 6 hours. He is on nebulized bronchodilators. he states he was supposed to go for dilation of esophageal stricture sometime this week with Dr. Vegas on an outpatient basis. He is tolerating a heart healthy diet. Objective - Vital Signs Vital signs: Vital Signs Temp 97.6 F 04/11/21 07:00 Pulse 92 04/11/21 12:04 Resp 16 04/11/21 07:00 BP 170/94 04/11/21 07:00 Pulse Ox 90 L 04/11/21 07:00 Intake & Output 04/10/21 04/11/21 04/11/21 18:59 06:59 18:59 Intake Total 1438 Output Total 1300 300 Balance 1438 -1300 -300 Intake: Intake, IV Titration 900 Amount Ampicillin-Sulbactam 3 gm 200 In Sodium Chloride 0.9% 100 ml @ 200 mls/hr IVPB Q6HR [facility] Rx#:[id number] Sodium Chloride 0.9% 1, 600 000 ml @ 75 mls/hr IV . [id number] [facility] Rx#:[id number] metroNIDAZOLE-NS PMX 500 100 mg In Saline 1 100ml.bag @ 100 mls/hr IVPB Q8HR [facility] Rx#:[id number] Oral 538 Output: Urine 1300 300 Other: # Voids 1 - Exam GENERAL EXAM: Alert, very pleasant, significant a 75-year-old white male, on 2 L of oxygen, with a pulse ox of 91% comfortable in no apparent distress. HEAD: Normocephalic/atraumatic. EYES: Normal reaction of pupils, equal size. Conjunctiva pink, sclera white. NOSE: Clear with pink turbinates. THROAT: No erythema or exudates. NECK: No masses, no JVD, no thyroid enlargement, no adenopathy. CHEST: No chest wall deformity. Symmetrical expansion. LUNGS: Equal air entry with no crackles, wheeze, rhonchi or dullness. CVS: Regular rate and rhythm, normal S1 and S2, no gallops, no murmurs, no rubs ABDOMEN: Soft, nontender. No hepatosplenomegaly, normal bowel sounds, no guarding or rigidity. EXTREMITIES: No clubbing, no edema, no cyanosis, 2+ pulses and upper and lower extremities. MUSCULOSKELETAL: Muscle strength and tone normal. SPINE: No scoliosis or deformity SKIN: No rashes CENTRAL NERVOUS SYSTEM: Alert and oriented -3. No focal deficits, tone is normal in all 4 extremities. PSYCHIATRIC: Alert and oriented -3. Appropriate affect. Intact judgment and insight. - Labs CBC & Chem 7: 04/10/21 04:13 04/10/21 04:13 Labs: Abnormal Lab Results - Last 24 Hours (Table) 04/10/21 Range/Units 04:13 Procalcitonin 0.88 H (0.02-0.09) ng/mL Microbiology - Last 24 Hours (Table) 04/09/21 20:29 Gram Stain - Preliminary Sputum Sputum Culture - Preliminary Presumptive Staph aureus 04/09/21 18:24 Blood Culture - Preliminary Blood No Growth after 24 hours Assessment and Plan Plan: Assessment: #1. Multifocal pneumonia, with the chest x-ray showing COPD with interstitial densities in focal right upper lobe airspace disease, possibly related to aspiration pneumonia. Legionella urine antigen negative #2. Acute hypoxic respiratory failure related to the above #3. Abdominal cramping, nausea vomiting and diarrhea, C. diff was negative. Abdominal x-ray showed no evidence of free air or bowel obstruction. There may be a mild regional ileus or enteritis present. CT of the abdomen and pelvis suggested possible infectious or inflammatory gastroenteritis #4. Coronary artery disease, status post bypass grafting #5. History of bilateral carotid artery stenosis, status post stenting #6. History of tonsillar/pharyngeal cancer, status post radical neck dissection followed by chemoradiation in 2005 #7. Esophageal stricture, and patient required esophageal dilation on outpatient basis #8. History of bilateral apical consolidation seen on the CT of the chest likely related to post radiation changes #9. Hypothyroidism #10. Former smoker Plan: Continue antibiotics per ID service recommendations Continue IV steroids and breathing treatment Feeling a little better, vital signs have been stable Maintain aspiration precautions, Aspiration is highly suspected in this patient with esophageal strictures, requiring esophageal dilation Speech evaluation and dietary recommendations per speech evaluation Plus continue current medical treatment Follow-up chest x-ray in the morning We'll continue to follow I performed a history & physical examination of the patient and discussed their management with my nurse practitioner, Jaycee Trotter. I reviewed the nurse practitioner's note and agree with the documented findings and plan of care. Lung sounds are positive for diffuse wheezes throughout the lung olsen. The findings and the impression was discussed with the patient. I attest to the documentation by the nurse practitioner. Time with Patient: Less than 30
[2021-04-11 15:30] VITALS: BMI 17.9
--- NOTE | 2021-04-11 17:26 | P.CONS ---
History of Present Illness - Reason for Consult Consult date: 04/11/21 Abdominal pain Requesting physician: Kale Fischer - Chief Complaint Abdominal pain - History of Present Illness This is a pleasant 75-year-old white male who presented to the emergency department with complaints of fever, nausea, and abdominal pain that started 3-4 days ago. Patient has a past medical history including coronary artery disease status post CABG, pharyngeal cancer with radiation, dysphasia, COPD, CVA, GERD, hearing disorder, hyperlipidemia, hypertension, pneumonia, renal disease, thyroid disorder, and vascular disorder on Plavix. On admission he had a WBC of 16, hemoglobin 12.7, hematocrit 39, platelet count 256,000, INR 1.2, total bilirubin 0.7, alkaline phosphatase 51, AST 25, ALT 12. He underwent a abdominal x-ray that showed COPD with new interstitial densities and focal right upper lobe airspace disease. Correlate for conventional pneumonia versus atypical pneumonia. No evidence for free air or bowel obstruction. There may be mild regional ileus or enteritis in the left mid abdomen. CT of abdomen and pelvis showed prominent fluid-filled small bowel loops throughout the abdomen and pelvis with liquid stool in the right side of the colon. Some corresponding fold thickening along the gastric fundus and proximal body. Correlate for infectious or inflammatory gastroenteritis. Increased basilar groundglass including groundglass nodularity background emphysema. Correlate with patient's symptoms to exclude possibility suggestive of atypical pneumonia, aspiration, or interstitial pneumonitis. Possible severe arthrosclerotic stenosis at the bilateral renal artery origins. Patient is currently on Unasyn and Flagyl. He states his abdominal pain has improved significantly. He had a bowel movement today. Denies any blood in his stool or rectal bleeding. Patient has been following with for dysphasia and difficulty swallowing. And is scheduled for outpatient EGD with possible balloon dilation with Dr. Byers this Sunday, however that will need to be canceled and rescheduled due to patient currently on Plavix. Review of Systems REVIEW OF SYSTEMS: CARDIOPULMONARY: No chest pain or shortness of breath. Gastrointestinal: Abdominal pain, diarrhea, nausea all improved at this time. Patient is having difficulty with swallowing solids. No hematemesis, coffee-g round emesis. No rectal bleeding, or melena. GENITOURINARY: No dysuria or hematuria. MUSCULOSKELETAL: Reports normal range of motion., Joint pain. SKIN: No rashes. No jaundice. ENDOCRINE: No chills, fevers. No excessive weight gain or loss. No polydipsia or polyuria. PSYCHIATRIC: Unremarkable. NEUROLOGY: No change in mental status. Denies dizziness, headache. ENT: Vision unremarkable. CONSTITUTIONAL: No recent weight loss. Fever, chills, night sweats. Past Medical History Past Medical History: Coronary Artery Disease (CAD), Cancer, Chest Pain / Angina, COPD, CVA/TIA, GERD/Reflux, Hearing Disorder / Deafness, Hyperlipidemia, Hypertension, Pneumonia, Renal Disease, Syncope, Thyroid Disorder, Vascular Disorder Additional Past Medical History / Comment(s): 2006 Tonsil/pharyngeal cancer w/ surgery/chemo/radiation, ongoing dysphagia, bilateral carotid artery disease w/ stent R side, CVA per MRI, CKD stage II, CAD with recent CABG w/ post op anemia requiring blood transfusion, diverticular dx, vertigo when first stands, constipation, hypothyroid, [place] beena aides. Current lung congestion, coughing, wheezing ongoing. History of Any Multi-Drug Resistant Organisms: None Reported Past Surgical History: Coronary Bypass/CABG, Heart Catheterization, Hernia Repair, Orthopedic Surgery Additional Past Surgical History / Comment(s): 02/2017 CABG-4 vessel, angiograms, R internal caratid stented, 2005 radical neck dissection for pharyngeal cancer, L/R inguinal hernia repair, 3 sinus surgeries with benign polypectomy, colonoscopy, bilateral rotator cuff repairs. Past Anesthesia/Blood Transfusion Reactions: No Reported Reaction, Motion Sickness Past Psychological History: No Psychological Hx Reported Additional Psychological History / Comment(s): Pt resides with his spouse. He is independent. He is a [employer] . He was stationed in [facility]. Smoking Status: Former smoker Past Alcohol Use History: Rare Additional Past Alcohol Use History / Comment(s): Pt started smoking occasional cigars/pipe in 1964 and quit in 1984. Past Drug Use History: Marijuana - Past Family History Father Family Medical History: Cancer Additional Family Medical History / Comment(s): Father had lung cancer. He was a smoker. Mother Family Medical History: Congestive Heart Failure (CHF) Sister(s) Family Medical History: Cancer Medications and Allergies Home Medications Medication Instructions Recorded Confirmed Type Fluticasone Nasal [place] [Flonase 1 spray EA NOSTRIL BID PRN 02/12/17 04/09/21 History Nasal [place]] Levothyroxine Sodium [Synthroid] 125 mcg PO DAILY 02/12/17 04/09/21 History Aspirin 81 mg PO DAILY #30 03/21/17 04/09/21 Rx Metoprolol Tartrate [Lopressor] 25 mg PO BID PRN 07/02/17 04/09/21 History Clopidogrel [Plavix] 75 mg PO DAILY 09/10/18 04/09/21 History Midodrine [ProAmatine] 5 mg PO TID PRN 04/04/19 04/09/21 History Albuterol Inhaler [Ventolin Hfa 1 - 2 puff INHALATION RT-Q6H PRN 04/09/21 04/09/21 History Inhaler] Atorvastatin [Lipitor] 20 mg PO DAILY 04/09/21 04/09/21 History Docusate [Colace] 100 mg PO BID 04/09/21 04/09/21 History Finasteride [Proscar] 5 mg PO DAILY 04/09/21 04/09/21 History Ipratropium-Albuterol Nebulize 1 vial INHALATION RT-QID PRN 04/09/21 04/09/21 History [Duoneb 0.5 mg-3 mg/3 ml Soln] Montelukast [Singulair] 10 mg PO HS 04/09/21 04/09/21 History Pantoprazole [Protonix] 40 mg PO BID 04/09/21 04/09/21 History amLODIPine [Norvasc] 5 mg PO DAILY PRN 04/09/21 04/09/21 History predniSONE 5 mg PO DAILY 04/09/21 04/09/21 History Allergies Allergy/AdvReac Type Severity Reaction Status Date / Time No Known Allergies Allergy Verified 04/09/21 07:46 Physical Exam Vitals: Vital Signs Temp Pulse Pulse Resp BP Pulse Ox 04/11/21 12:04 92 04/11/21 11:50 88 04/11/21 08:28 96 04/11/21 08:20 92 04/11/21 08:19 92 04/11/21 08:07 88 04/11/21 07:00 97.6 F 101 H 16 170/94 90 L 04/11/21 02:00 17 04/11/21 01:43 97.6 F 95 17 140/78 91 L 04/10/21 21:12 80 04/10/21 21:00 78 04/10/21 20:59 80 04/10/21 20:47 78 04/10/21 20:08 98.0 F 96 16 162/87 95 04/10/21 20:00 17 04/10/21 15:41 80 04/10/21 15:26 82 04/10/21 14:55 98.4 F 94 16 110/63 87 L Intake and Output 04/10/21 04/11/21 04/11/21 22:59 06:59 14:59 Intake Total 180 Output Total 800 500 300 Balance -620 -500 -300 Intake: Oral 180 Output: Urine 800 500 300 Other: # Voids 1 1 General appearance: The patient is alert, oriented, appears in no acute distress. HET: Head is normocephalic and atraumatic. Conjunctiva pink. Sclera anicteric. Neck: Supple without lymphadenopathy. Trachea midline. Heart: S1 S2. Regular rate and rhythm. Lungs: Clear to auscultation. Abdomen: Soft, nontender, nondistended with bowel sounds. No guarding or rigidity. Skin: No rashes. No jaundice. Extremities: Normal skin color and turgor. No pedal edema. Neurological: No focal deficits. Alert and oriented 3.. Results CBC & Chem 7: 04/10/21 04:13 04/10/21 04:13 Labs: Abnormal Lab Results - Last 24 Hours (Table) 04/10/21 Range/Units 04:13 Procalcitonin 0.88 H (0.02-0.09) ng/mL Microbiology - Last 24 Hours (Table) 04/09/21 20:29 Gram Stain - Preliminary Sputum Sputum Culture - Preliminary Presumptive Staph aureus 04/09/21 18:24 Blood Culture - Preliminary Blood No Growth after 24 hours Comments: abdominal x-ray showed COPD with new interstitial densities and focal right upper lobe airspace disease. Correlate for conventional pneumonia versus atypical pneumonia. No evidence for free air or bowel obstruction. There may be mild regional ileus or enteritis in the left mid abdomen. CT of abdomen and pelvis showed prominent fluid-filled small bowel loops throughout the abdomen and pelvis with liquid stool in the right side of the colon. Some corresponding fold thickening along the gastric fundus and proximal body. Correlate for infectious or inflammatory gastroenteritis. Increased basilar groundglass including groundglass nodularity background emphysema. Correlate with patient's symptoms to exclude possibility suggestive of atypical pneumonia, aspiration, or interstitial pneumonitis. Possible severe arthrosclerotic stenosis at the bilateral renal artery origins. Assessment and Plan (1) Abdominal pain Narrative/Plan: MB 5-year-old male who presented to the emergency department 2 days ago with complaints of fever, abdominal pain, and nausea without vomiting. Patient has multiple comorbidities including a history of pharyngeal cancer status post radiation with ongoing dysphagia. This patient has been following with from gastroenterology and is scheduled for an EGD with possible dilation this Sunday with Dr. Byers. On presentation in the emergency department he was noted to have leukocytosis, CT of the abdomen and pelvis revealed prominent fluid-filled small bowel loops throughout the abdomen suggestive of inflammatory or infectious gastroenteritis, also revealed groundglass nodularity suggestive of atypical pneumonia, aspiration, or interstitial pneumonitis. Patient's symptoms have resolved. States he had a b owel movement today and he has felt better. Denies any blood in his stool or rectal bleeding. Last colonoscopy was at least 5 years ago. He does have a history of constipation and states he takes Colace at home without much improvement. Likely patient did have episode of gastroenteritis which is improving. Continue Unasyn and Flagyl. EGD will need to be postponed, as patient is currently on Plavix. Plavix needs to be held 5 days prior to EGD. We'll plan on scheduling this for sometime next week. Current Visit: Yes Status: Acute Code(s): R10.9 - UNSPECIFIED ABDOMINAL PAIN SNOMED Code(s): 41091126 (2) Dysphagia Current Visit: Yes Status: Acute Code(s): R13.10 - DYSPHAGIA, UNSPECIFIED SNOMED Code(s): 13722606 (3) Coronary artery disease Current Visit: No Status: Acute Code(s): I25.10 - ATHSCL HEART DISEASE OF [place] CORONARY ARTERY W/O ANG PCTRS SNOMED Code(s): 51537277 Plan: 1. Continue symptomatic and supportive care 2. Continue diet as tolerated 3. Continue IV antibiotics 4. Continue Protonix 40 mg twice a day 5. Continue antiemetics as needed 6. Abdominal x-rays and CT of abdomen and pelvis reviewed 7. Patient was scheduled for EGD with possible dilation this Sunday, this will be postponed as patient is currently taking Plavix. Patient will need to be off Plavix for 5 days prior to EGD with dilation. 8. Will add MiraLAX daily, discussed with patient and his may titrate for constipation Thank you for this consultation, we will continue to follow. Dr. Angela Byers I agree with the dictator's note, documented as a scribe by Alison Fam.
[2021-04-11] MEDS ORDERED: VANCOMYCIN IV PER PHARMACY 1 EACH MISC MISCELLANE PRN (17:39)
[2021-04-11] MEDS ORDERED: VANCOMYCIN 1,000 MG in SODIUM CHLORIDE 0.9% 250 ML IVPB SCH (19:00)
--- NOTE | 2021-04-11 19:21 | P.PN ---
Subjective Progress Note Date: 04/11/21 Tenzin Burgos, is a 75-year-old male who presented to [facility] emergency room with a chief complaint of fever nausea and severe abdominal pain He was evaluated in the emergency room vital examination on presentation revealed a temperature of 100.5 pulse 106 respiration 18 blood pressure 120/68 pulse ox 96% on 2 L nasal cannula and 92% on room air Laboratory data reveals a white blood count of 16.0 hemoglobin 12.7 platelet count 256 sodium 138 potassium 4.2 chloride 97 BUN 30 creatinine 1.38 Testing in the emergency room revealed computed tomography scan of the abdomen and pelvis revealed prominent fluid-filled small bowel loops throughout the abdomen suggestive of inflammatory or infectious gastroenteritis, CT also revealed groundglass nodularity suggestive of atypical pneumonia aspiration or interstitial pneumonitis Patient was admitted to medical floor for further evaluation and treatment Past medical history is significant for 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 On 04/10/2021 Patient was seen and examined on the medical floor, he is alert and oriented x 3 in no distress, he is complaining of abdominal pain and occasional cough otherwise he denies any complaints there is no fever or chills no headache or dizziness no chest pain no shortness of breath no palpitation no nausea or vomiting, no diarrhea no blood in the stools no burning with urination no frequency or urgency and no hematuria, there is no weakness or numbness in any of the extremities no change in vision speech or gait. On 04/11/2021 Patient was seen and examined on the medical floor, he is alert and oriented x 3 in no distress, patient is still complaining of abdominal discomfort otherwise he denies any complaints there is no fever or chills no headache or dizziness no chest pain no shortness of breath no palpitation no cough no nausea or vomiting no abdominal pain no diarrhea no blood in the stools no burning with urination no frequency or urgency and no hematuria, there is no weakness or numbness in any of the extremities no change in vision speech or gait. Objective - Vital Signs Vital signs: Vital Signs Temp 97.6 F 04/11/21 07:00 Pulse 92 04/11/21 12:04 Resp 16 04/11/21 07:00 BP 170/94 04/11/21 07:00 Pulse Ox 90 L 04/11/21 07:00 Intake & Output 04/10/21 04/11/21 04/11/21 18:59 06:59 18:59 Intake Total 1438 Output Total 1300 300 Balance 1438 -1300 -300 Intake: Intake, IV Titration 900 Amount Ampicillin-Sulbactam 3 gm 200 In Sodium Chloride 0.9% 100 ml @ 200 mls/hr IVPB Q6HR LEIDA Rx#:[id number] Sodium Chloride 0.9% 1, 600 000 ml @ 75 mls/hr IV . [id number] [facility] Rx#:[id number] metroNIDAZOLE-NS PMX 500 100 mg In Saline 1 100ml.bag @ 100 mls/hr IVPB Q8HR LEIDA Rx#:[id number] Oral 538 Output: Urine 1300 300 Other: # Voids 1 - Exam In general patient is alert and oriented x 3 in no distress HEENT head normocephalic and atraumatic Neck is supple no JVD no goiter no lymphadenopathy no carotid bruit Chest examination is clear to auscultation no crackles no wheezing Cardiac exam reveals regular heart sounds S1 and S2 no gallops no murmurs Abdomen is soft with mild diffuse tenderness no organomegaly no rigidity or rebound and no palpable masses Extremity exam reveals no edema no cyanosis or clubbing Neurological examination reveals no gross focal deficits - Labs CBC & Chem 7: 04/10/21 04:13 04/10/21 04:13 Labs: Abnormal Lab Results - Last 24 Hours (Table) 04/10/21 Range/Units 04:13 Procalcitonin 0.88 H (0.02-0.09) ng/mL Microbiology - Last 24 Hours (Table) 04/09/21 20:29 Gram Stain - Preliminary Sputum Sputum Culture - Preliminary Presumptive Staph aureus 04/09/21 18:24 Blood Culture - Preliminary Blood No Growth after 24 hours Assessment and Plan Plan: Severe abdominal pain cause is unclear with abnormal computed tomography scan of the abdomen and pelvis at this time patient was started on IV antibiotic eye will add IV Flagyl and consult infectious disease Groundglass appearance of the chest will consult pulmonary Leukocytosis, could be related to infectious process in the abdomen or in the lungs Will monitor closely continue with IV antibiotic at this time Underlying history of COPD Previous history of range she had cancer with history of surgery, chemotherapy and radiation therapy in 2005 Underlying history of hypertension Underlying history of hyperlipidemia Underlying history of chronic kidney disease stage II
--- NOTE | 2021-04-11 20:06 | PN ---
PROGRESS NOTE DATE OF SERVICE: 04/11/2021 REASON FOR FOLLOWUP: Pneumonia; possible aspiration. INTERVAL HISTORY: The patient is afebrile. The patient is breathing slightly comfortably. The patient denies having any chest pain. Did have a cough with occasional sputum. No vomiting. No abdominal pain or diarrhea. PHYSICAL EXAMINATION: On examination, blood pressure 150/80 with a pulse of 96, temperature 97.6. He is 90% on 2 L nasal cannula. GENERAL DESCRIPTION: General description is an elderly male lying in bed in no distress. RESPIRATORY SYSTEM: Unlabored breathing. Decreased breath sounds at the bases. No wheeze. HEART: S1, S2. Regular rate and rhythm. ABDOMEN: Soft. No tenderness. LABS: No new labs have been obtained today. Sputum showing presumptive Staph aureus. DIAGNOSTIC IMPRESSION AND PLAN: Patient admitted to hospital with pneumonia, concern for possible aspiration. Now sputum is showing a Staph aureus. We will add vancomycin while waiting for the final ID of this pathogen and continue with supportive care. MMODL / IJN: [id number] /
[2021-04-11] MEDS: MONTELUKAST 10 MG TAB PO SCH (20:19)
[2021-04-12] MEDS: metroNIDAZOLE-NS PMX 500 MG in SALINE 1 100ML.BAG IVPB SCH ×3 (01:03→17:01)
[2021-04-12] MEDS: AMPICILLIN-SULBACTAM 3 GM in SODIUM CHLORIDE 0.9% 100 ML IVPB SCH ×3 (05:23→18:06)
[2021-04-12] MEDS: methylPREDNISolone SOD SUCCI 125 MG/2 ML VIAL IV SCH ×3 (05:23→17:01)
[2021-04-12] MEDS: SODIUM CHLORIDE 0.9% 1,000 ML IV SCH ×2 (05:24→18:22)
[2021-04-12 07:18] LABS: African American GFR (CKD) >90 (>60 ml/min/1.73 sqM); Non-African American GFR(CKD) 79 (>60 ml/min/1.73 sqM)
[2021-04-12] MEDS: CLOPIDOGREL 75 MG TAB PO SCH (07:56)
[2021-04-12] MEDS: ASPIRIN 81 MG PO SCH (07:56)
[2021-04-12] MEDS: DOCUSATE 100 MG CAP PO SCH ×2 (07:56→21:55)
[2021-04-12] MEDS: FINASTERIDE 5 MG TAB PO SCH (07:56)
[2021-04-12] MEDS: amLODIPine 5 MG TAB PO PRN (07:56)
[2021-04-12] MEDS: LEVOTHYROXINE 125 MCG TAB PO SCH (07:57)
[2021-04-12] MEDS: PANTOPRAZOLE 40 MG TABLET PO SCH ×2 (07:57→21:55)
[2021-04-12] MEDS: ATORVASTATIN 20 MG TAB PO SCH (07:57)
[2021-04-12] MEDS: polyethylene glycoL 3350 17 GM POWD.PACK PO SCH (07:58)
[2021-04-12] MEDS: FORMOTEROL FUMARATE 20 MCG/2 ML NEBU INHALATION SCH ×2 (08:17→20:06)
[2021-04-12] MEDS: IPRATROPIUM-ALBUTEROL 3 ML NEB INHALATION SCH ×4 (08:17→20:06)
[2021-04-12] MEDS: BUDESONIDE 1 MG/2 ML NEBU INHALATION SCH ×2 (08:17→20:06)
--- NOTE | 2021-04-12 10:45 | P.PN ---
Subjective Progress Note Date: 04/12/21 Principal diagnosis: Multifocal pneumonia The patient is seen today 04/12/2021 in follow-up on the regular medical floor. He is currently sitting up in bed. Having breakfast. Continues with a loose productive cough. Seems to be tolerating his diet today. Lungs sounds with b ilateral scattered rhonchi. Maintaining O2 saturation in the 90s on 2 L/m per nasal cannula. He's been afebrile. Hemodynamically stable. Sputum culture positive for presumptive staph aureus, Radha. Blood cultures are revealing no growth to date. Creatinine 0.94. Pro calcitonin 0.80. He remains on vancomycin, Unasyn and Flagyl. Continued on DuoNeb inhalations, Pulmicort and Perforomist inhalations, IV Solu-Medrol. Objective - Vital Signs Vital signs: Vital Signs Temp 97.6 F 04/12/21 07:59 Pulse 100 04/12/21 08:42 Resp 20 04/12/21 07:59 BP 186/98 04/12/21 07:59 Pulse Ox 92 L 04/12/21 07:59 Intake & Output 04/11/21 04/12/21 04/12/21 18:59 06:59 18:59 Output Total 720 700 720 Balance -720 -700 -720 Weight 56.699 kg Output: Urine 720 700 720 Other: Voiding Method Urinal Urinal # Voids 1 # Bowel Movements 1 - Exam GENERAL EXAM: Alert, very pleasant 75-year-old gentleman, on 2 L nasal cannula, comfortable in no apparent distress. HEAD: Normocephalic. EYES: Normal reaction of pupils, equal size. NOSE: Clear with pink turbinates. THROAT: No erythema or exudates. NECK: No masses, no JVD. CHEST: No chest wall deformity. LUNGS: Equal air entry with coarse rhonchi bilaterally. CVS: S1 and S2 normal with no audible murmur, regular rhythm. ABDOMEN: No hepatosplenomegaly, normal bowel sounds, no guarding or rigidity. SPINE: No scoliosis or deformity SKIN: No rashes CENTRAL NERVOUS SYSTEM: No focal deficits, tone is normal in all 4 extremities. EXTREMITIES: There is no peripheral edema. No clubbing, no cyanosis. Peripheral pulses are intact. - Labs CBC & Chem 7: 04/10/21 04:13 04/12/21 06:31 Labs: Microbiology - Last 24 Hours (Table) 04/09/21 18:24 Blood Culture - Preliminary Blood No Growth after 48 hours 04/09/21 20:29 Gram Stain - Preliminary Sputum Sputum Culture - Preliminary Presumptive Staph aureus Assessment and Plan Assessment: 1 Multifocal pneumonia, with the chest x-ray showing COPD with interstitial densities in focal right upper lobe airspace disease, possibly related to aspiration pneumonia. Sputum culture positive for presumptive staph aureus, Ca ndida. Legionella urine antigen negative 2 Acute hypoxic respiratory failure related to the above 3 Abdominal cramping, nausea vomiting and diarrhea, C. diff was negative. Abdominal x-ray showed no evidence of free air or bowel obstruction. There may be a mild regional ileus or enteritis present. CT of the abdomen and pelvis suggested possible infectious or inflammatory gastroenteritis 4 Coronary artery disease, status post bypass grafting 5 History of bilateral carotid artery stenosis, status post stenting 6 History of tonsillar/pharyngeal cancer, status post radical neck dissection followed by chemoradiation in 2005 7 Esophageal stricture, and patient required esophageal dilation on outpatient basis 8 History of bilateral apical consolidation seen on the CT of the chest likely related to post radiation changes 9 Hypothyroidism 10 Former smoker Plan: The patient was seen by Dr. Castaneda Continue to suspect aspiration pneumonia Sputum positive for presumptive staph aureus Remains on vancomycin, Unasyn, Flagyl Follow-up chest x-ray in a.m. Titrate the FiO2 as tolerated We will continue to follow I, the cosigning physician, performed a history & physical examination of the patient. Lungs sounds with bilateral scattered rhonchi. Maintaining good O2 saturations in the 90s on 2 L/m per nasal cannula. I discussed the assessment and plan of care with my nurse practitioner, Jolynn Sibley. I attest to the above note as dictated by her.
[2021-04-12] MEDS: VANCOMYCIN 1,000 MG in SODIUM CHLORIDE 0.9% 250 ML IVPB SCH (12:29)
--- NOTE | 2021-04-12 15:34 | P.PN ---
Subjective Progress Note Date: 04/12/21 Principal diagnosis: abdominal pain This is a 75-year-old male patient who came into the hospital with complaints of weakness, abdominal pain and nausea. He is being treated for pneumonia. Patient suffers from chronic constipation as well as dysphasia. He underwent a CT of the abdomen and pelvis on admission that showed prominent fluid-filled small bowel loops throughout the abdomen and pelvis with liquid stool in the right side of the colon. Some corresponding fold thickening along the gastric fundus and proximal body. Correlate for infectious or inflammatory gastroe nteritis. The patient is seen and examined today states he is feeling well overall. States abdominal pain has completely resolved as well as nausea. He had a bowel movement. Patient states he's able to eat and swallow small well chewed bites of food, but still has some difficulty with solids. Plan was for outpatient EGD with possible esophageal dilation this coming Sunday. However in lieu of patient being admitted to the hospital and currently on Plavix that will be rescheduled for sometime next week. Objective - Vital Signs Vital signs: Vital Signs Temp 97.6 F 04/12/21 07:59 Pulse 100 04/12/21 08:42 Resp 20 04/12/21 07:59 BP 186/98 04/12/21 07:59 Pulse Ox 92 L 04/12/21 07:59 Intake & Output 04/11/21 04/12/21 04/12/21 18:59 06:59 18:59 Output Total 720 700 720 Balance -720 -700 -720 Weight 56.699 kg Output: Urine 720 700 720 Other: Voiding Method Urinal Urinal # Voids 1 # Bowel Movements 1 - Exam General appearance: The patient is alert, oriented, appears in no acute distress. HET: Head is normocephalic and atraumatic. Conjunctiva pink. Sclera anicteric. Neck: Supple without lymphadenopathy. Abdomen: Soft, thin, nontender, nondistended with bowel sounds. No guarding or rigidity. Extremities: Normal skin color and turgor. No pedal edema Skin: No rashes, no jaundice Neurological: No focal deficits. Alert and oriented 3. - Labs CBC & Chem 7: 04/10/21 04:13 04/12/21 06:31 Labs: Microbiology - Last 24 Hours (Table) 04/09/21 18:24 Blood Culture - Preliminary Blood No Growth after 48 hours 04/09/21 20:29 Gram Stain - Preliminary Sputum Sputum Culture - Preliminary Presumptive Staph aureus Assessment and Plan (1) Abdominal pain Narrative/Plan: MB 5-year-old male who presented to the emergency department 2 days ago with complaints of fever, abdominal pain, and nausea without vomiting. Patient has multiple comorbidities including a history of pharyngeal cancer status post radiation with ongoing dysphagia. This patient has been following with from gastroenterology and is scheduled for an EGD with possible dilation this Sunday with Dr. Byers. On presentation in the emergency department he was noted to have leukocytosis, CT of the abdomen and pelvis revealed prominent fluid-filled small bowel loops throughout the abdomen suggestive of inflammatory or infectious gastroenteritis, also revealed grou ndglass nodularity suggestive of atypical pneumonia, aspiration, or interstitial pneumonitis. Patient's symptoms have resolved. States he had a bowel movement today and he has felt better. Denies any blood in his stool or rectal bleeding. Last colonoscopy was at least 5 years ago. He does have a history of constipation and states he takes Colace at home without much improvement. Likely patient did have episode of gastroenteritis which is improving. Continue Unasyn and Flagyl. EGD will need to be postponed, as patient is currently on Plavix. Plavix needs to be held 5 days prior to EGD. We'll plan on scheduling this for sometime next week. Current Visit: Yes Status: Acute Code(s): R10.9 - UNSPECIFIED ABDOMINAL PAIN SNOMED Code(s): 92227565 (2) Dysphagia Current Visit: Yes Status: Acute Code(s): R13.10 - DYSPHAGIA, UNSPECIFIED SNOMED Code(s): 35440293 (3) Coronary artery disease Current Visit: No Status: Acute Code(s): I25.10 - ATHSCL HEART DISEASE OF [place] CORONARY ARTERY W/O ANG PCTRS SNOMED Code(s): 96993050 Plan: 1. Continue symptomatic and supportive care 2. Continue diet as tolerated 3. Continue IV antibiotics 4. Continue Protonix 40 mg twice a day 5. Continue antiemetics as needed 6. Abdominal x-rays and CT of abdomen and pelvis reviewed 7. Patient was scheduled for EGD with possible dilation this Sunday, this will be postponed as patient is currently taking Plavix. Patient will need to be off Plavix for 5 days prior to EGD with dilation. 8. Continue MiraLAX daily, discussed with patient and his may titrate for constipation Thank you for this consultation, we will continue to follow. Dr. Angela Byers I agree with the dictator's note, documented as a scribe by Alison Fam.
--- NOTE | 2021-04-12 19:53 | P.PN ---
Subjective Progress Note Date: 04/12/21 Tenzin Burgos, is a 75-year-old male who presented to [facility] emergency room with a chief complaint of fever nausea and severe abdominal pain He was evaluated in the emergency room vital examination on presentation revealed a temperature of 100.5 pulse 106 respiration 18 blood pressure 120/68 pulse ox 96% on 2 L nasal cannula and 92% on room air Laboratory data reveals a white blood count of 16.0 hemoglobin 12.7 platelet count 256 sodium 138 potassium 4.2 chloride 97 BUN 30 creatinine 1.38 Testing in the emergency room revealed computed tomography scan of the abdomen and pelvis revealed prominent fluid-filled small bowel loops throughout the abdomen suggestive of inflammatory or infectious gastroenteritis, CT also revealed groundglass nodularity suggestive of atypical pneumonia aspiration or interstitial pneumonitis Patient was admitted to medical floor for further evaluation and treatment Past medical history is significant for 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 On 04/10/2021 Patient was seen and examined on the medical floor, he is alert and oriented x 3 in no distress, he is complaining of abdominal pain and occasional cough otherwise he denies any complaints there is no fever or chills no headache or dizziness no chest pain no shortness of breath no palpitation no nausea or vomiting, no diarrhea no blood in the stools no burning with urination no frequency or urgency and no hematuria, there is no weakness or numbness in any of the extremities no change in vision speech or gait. On 04/11/2021 Patient was seen and examined on the medical floor, he is alert and oriented x 3 in no distress, patient is still complaining of abdominal discomfort otherwise he denies any complaints there is no fever or chills no headache or dizziness no chest pain no shortness of breath no palpitation no cough no nausea or vomiting no abdominal pain no diarrhea no blood in the stools no burning with urination no frequency or urgency and no hematuria, there is no weakness or numbness in any of the extremities no change in vision speech or gait. On 04/12/2021 Patient was seen and examined on the medical floor, he is alert and oriented x 3 in no distress, he denies any complaints there is no fever or chills no headache or dizziness no chest pain no shortness of breath no palpitation no cough no nausea or vomiting no abdominal pain no diarrhea no blood in the stools no burning with urination no frequency or urgency and no hematuria, there is no weakness or numbness in any of the extremities no change in vision speech or gait. GI and pulmonary recommendation review continue IV antibiotics at this time will follow in a.m. Objective - Vital Signs Vital signs: Vital Signs Temp 97.6 F 04/12/21 07:59 Pulse 108 H 04/12/21 12:24 Resp 20 04/12/21 07:59 BP 186/98 04/12/21 07:59 Pulse Ox 92 L 04/12/21 07:59 Intake & Output 04/11/21 04/12/21 04/12/21 18:59 06:59 18:59 Output Total 720 700 720 Balance -720 -700 -720 Weight 56.699 kg Output: Urine 720 700 720 Other: Voiding Method Urinal Urinal # Voids 1 # Bowel Movements 1 - Exam In general patient is alert and oriented x 3 in no distress HEENT head normocephalic and atraumatic Neck is supple no JVD no goiter no lymphadenopathy no carotid bruit Chest examination is clear to auscultation no crackles no wheezing Cardiac exam reveals regular heart sounds S1 and S2 no gallops no murmurs Abdomen is soft with mild diffuse tenderness no organomegaly no rigidity or rebound and no palpable masses Extremity exam reveals no edema no cyanosis or clubbing Neurological examination reveals no gross focal deficits - Labs CBC & Chem 7: 04/10/21 04:13 04/12/21 06:31 Labs: Microbiology - Last 24 Hours (Table) 04/09/21 20:29 Gram Stain - Preliminary Sputum Sputum Culture - Preliminary Presumptive Staph aureus Radha albicans 04/09/21 18:24 Blood Culture - Preliminary Blood No Growth after 48 hours Assessment and Plan Plan: Severe abdominal pain cause is unclear with abnormal computed tomography scan of the abdomen and pelvis at this time patient was started on IV antibiotic eye will add IV Flagyl and consult infectious disease Groundglass appearance of the chest will consult pulmonary Leukocytosis, could be related to infectious process in the abdomen or in the lungs Will monitor closely continue with IV antibiotic at this time Underlying history of COPD Previous history of range she had cancer with history of surgery, chemotherapy and radiation therapy in 2005 Underlying history of hypertension Underlying history of hyperlipidemia Underlying history of chronic kidney disease stage II
--- NOTE | 2021-04-12 20:17 | PN ---
PROGRESS NOTE DATE OF SERVICE: 04/12/2021 REASON FOR FOLLOWUP: Pneumonia. INTERVAL HISTORY: The patient is afebrile. The patient is feeling slightly better. He is breathing comfortably. The cough has slightly decreased in intensity. No chest pain. No abdominal pain or diarrhea. PHYSICAL EXAMINATION: Blood pressure 131/72 with a pulse of 90, temperature of 97.9. He is 91% on 2 L nasal cannula. General description is an elderly male up in the chair in no distress. Respiratory system unlabored breathing, decreased breath sounds. No wheeze. Heart S1, S2. Regular. Abdomen soft. LABS: Hemoglobin is 10.8, white count is 15.6, creatinine 0.94. Sputum showing Staph aureus. DIAGNOSTIC IMPRESSION: Patient admitted to the hospital with pneumonia, initial concern for aspiration etiology, now sputum showing Staph aureus. Patient is covered with Unasyn and vancomycin. We will continue while waiting for the final cultures and continue supportive care. MMODL / KAELN: [id number] /
[2021-04-12] MEDS: MONTELUKAST 10 MG TAB PO SCH (21:55)
[2021-04-13] MEDS: methylPREDNISolone SOD SUCCI 125 MG/2 ML VIAL IV SCH ×5 (01:00→23:16)
[2021-04-13] MEDS: AMPICILLIN-SULBACTAM 3 GM in SODIUM CHLORIDE 0.9% 100 ML IVPB SCH ×3 (01:01→13:58)
[2021-04-13] MEDS: metroNIDAZOLE-NS PMX 500 MG in SALINE 1 100ML.BAG IVPB SCH ×2 (03:00→07:59)
[2021-04-13] MEDS: VANCOMYCIN 1,000 MG in SODIUM CHLORIDE 0.9% 250 ML IVPB SCH ×2 (04:34→21:58)
[2021-04-13] MEDS: LEVOTHYROXINE 125 MCG TAB PO SCH (06:23)
[2021-04-13 06:48] LABS: Basophils % (A) 0 %; Eosinophils % (A) 0 %; HCT 36.1 % (39.0-53.0); HGB 11.6 gm/dL (13.0-17.5); Lymphocytes # (A) 0.6 k/uL (1.0-4.8); Lymphocytes % (A) 3 %; MCH 27.8 pg (25.0-35.0); MCHC 32.2 g/dL (31.0-37.0); MCV 86.3 fL (80.0-100.0); Mean Platelet Volume 8.1; Monocytes # (A) 0.6 k/uL (0-1.0); Monocytes % (A) 3 %; Neutrophils # (A) 15.6 k/uL (1.3-7.7); Neutrophils % (A) 93 %; Platelet Count 292 k/uL (150-450); RBC 4.18 m/uL (4.30-5.90); RDW 15.1 % (11.5-15.5); WBC 16.8 k/uL (3.8-10.6)
--- NOTE | 2021-04-13 06:52 | XR ---
EXAMINATION TYPE: XR chest 1V DATE OF EXAM: 04/13/2021 HISTORY: Shortness of breath. COMPARISON: 08/06/2018 TECHNIQUE: Single view of the chest is submitted. FINDINGS: Demonstrated are scattered senescent parenchymal change. Increased patchy density right upper lobe. Persistent but improved density left lower lobe medially. Biapical capping unchanged. The heart is stable. Hilar and mediastinal structures are within normal limits. Degenerative changes are seen of the dorsal spine. IMPRESSION: 1. Increased patchy density right upper lobe. Persistent but improved density left lower lobe medial ly. Biapical capping unchanged.
[2021-04-13 06:55] LABS: ALT 13 U/L (4-49); AST 21 U/L (17-59); African American GFR (CKD) >90 (>60 ml/min/1.73 sqM); Albumin 3.5 g/dL (3.5-5.0); Albumin/Globulin Ratio 1.5; Alkaline Phosphatase 54 U/L (38-126); Anion Gap 10 mmol/L; Blood Urea Nitrogen 29 mg/dL (9-20); Calcium 9.1 mg/dL (8.4-10.2); Carbon Dioxide 26 mmol/L (22-30); Chloride 97 mmol/L (98-107); Globulin 2.3 g/dL; Glucose 130 mg/dL (74-99); Non-African American GFR(CKD) 84 (>60 ml/min/1.73 sqM); Potassium 3.6 mmol/L (3.5-5.1); Sodium 133 mmol/L (137-145); Total Bilirubin 0.3 mg/dL (0.2-1.3); Total Protein 5.8 g/dL (6.3-8.2)
[2021-04-13] MEDS: IPRATROPIUM-ALBUTEROL 3 ML NEB INHALATION SCH ×4 (07:56→20:39)
[2021-04-13] MEDS: FORMOTEROL FUMARATE 20 MCG/2 ML NEBU INHALATION SCH ×2 (07:56→20:39)
[2021-04-13] MEDS: BUDESONIDE 1 MG/2 ML NEBU INHALATION SCH ×2 (07:56→20:39)
[2021-04-13] MEDS: ATORVASTATIN 20 MG TAB PO SCH (08:02)
[2021-04-13] MEDS: PANTOPRAZOLE 40 MG TABLET PO SCH ×2 (08:02→21:58)
[2021-04-13] MEDS: CLOPIDOGREL 75 MG TAB PO SCH (08:02)
[2021-04-13] MEDS: amLODIPine 5 MG TAB PO PRN (08:02)
[2021-04-13] MEDS: ASPIRIN 81 MG PO SCH (08:02)
[2021-04-13] MEDS: DOCUSATE 100 MG CAP PO SCH ×2 (08:02→21:58)
[2021-04-13] MEDS: FINASTERIDE 5 MG TAB PO SCH (08:04)
[2021-04-13] MEDS: polyethylene glycoL 3350 17 GM POWD.PACK PO SCH (08:04)
[2021-04-13] MEDS: SODIUM CHLORIDE 0.9% 1,000 ML IV SCH ×2 (09:35→23:16)
--- NOTE | 2021-04-13 09:53 | P.PN ---
Subjective Progress Note Date: 04/13/21 Tenzin Burgos, is a 75-year-old male who presented to [facility] emergency room with a chief complaint of fever nausea and severe abdominal pain He was evaluated in the emergency room vital examination on presentation revealed a temperature of 100.5 pulse 106 respiration 18 blood pressure 120/68 pulse ox 96% on 2 L nasal cannula and 92% on room air Laboratory data reveals a white blood count of 16.0 hemoglobin 12.7 platelet count 256 sodium 138 potassium 4.2 chloride 97 BUN 30 creatinine 1.38 Testing in the emergency room revealed computed tomography scan of the abdomen and pelvis revealed prominent fluid-filled small bowel loops throughout the abdomen suggestive of inflammatory or infectious gastroenteritis, CT also revealed groundglass nodularity suggestive of atypical pneumonia aspiration or interstitial pneumonitis Patient was admitted to medical floor for further evaluation and treatment Past medical history is significant for 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 On 04/10/2021 Patient was seen and examined on the medical floor, he is alert and oriented x 3 in no distress, he is complaining of abdominal pain and occasional cough otherwise he denies any complaints there is no fever or chills no headache or dizziness no chest pain no shortness of breath no palpitation no nausea or vomiting, no diarrhea no blood in the stools no burning with urination no frequency or urgency and no hematuria, there is no weakness or numbness in any of the extremities no change in vision speech or gait. On 04/11/2021 Patient was seen and examined on the medical floor, he is alert and oriented x 3 in no distress, patient is still complaining of abdominal discomfort otherwise he denies any complaints there is no fever or chills no headache or dizziness no chest pain no shortness of breath no palpitation no cough no nausea or vomiting no abdominal pain no diarrhea no blood in the stools no burning with urination no frequency or urgency and no hematuria, there is no weakness or numbness in any of the extremities no change in vision speech or gait. On 04/12/2021 Patient was seen and examined on the medical floor, he is alert and oriented x 3 in no distress, he denies any complaints there is no fever or chills no headache or dizziness no chest pain no shortness of breath no palpitation no cough no nausea or vomiting no abdominal pain no diarrhea no blood in the stools no burning with urination no frequency or urgency and no hematuria, there is no weakness or numbness in any of the extremities no change in vision speech or gait. GI and pulmonary recommendation review continue IV antibiotics at this time will follow in a.m. On 04/13/2021 patient's alert and oriented 3 patient reports significant improvement with shortness of breath and chest pain. Patient remains on IV Solu-Medrol Unasyn and vancomycin. Repeat chest x-ray completed showing increased patchy density in the right upper lobe. Persistent but improved density in the left lower lobe medially. Pulmonary, infectious disease and GI services are following. Patient states improvement with abdominal pain denies nausea vomiting or diarrhea. Patient reports he had normal bowel movement last night. Objective - Vital Signs Vital signs: Vital Signs Temp 97.5 F L 04/13/21 07:44 Pulse 92 04/13/21 08:21 Resp 20 04/13/21 07:44 BP 168/97 04/13/21 07:44 Pulse Ox 92 L 04/13/21 07:44 Intake & Output 04/12/21 04/13/21 04/13/21 18:59 06:59 18:59 Output Total 720 3450 Balance -720 -3450 Output: Urine 720 3450 Other: Voiding Method Urinal Urinal # Voids 2 1 - Exam In general patient is alert and oriented x 3 in no distress HEENT head normocephalic and atraumatic Neck is supple no JVD no goiter no lymphadenopathy no carotid bruit Chest examination is clear to auscultation no crackles no wheezing Cardiac exam reveals regular heart sounds S1 and S2 no gallops no murmurs Abdomen is soft with mild diffuse tenderness no organomegaly no rigidity or rebound and no palpable masses Extremity exam reveals no edema no cyanosis or clubbing Neurological examination reveals no gross focal deficits - Labs CBC & Chem 7: 04/13/21 06:26 04/13/21 06:26 Labs: Abnormal Lab Results - Last 24 Hours (Table) 04/13/21 04/13/21 Range/Units 06:26 06:26 WBC 16.8 H (3.8-10.6) k/uL RBC 4.18 L (4.30-5.90) m/uL Hgb 11.6 L (13.0-17.5) gm/dL Hct 36.1 L (39.0-53.0) % Neutrophils # 15.6 H (1.3-7.7) k/uL Lymphocytes # 0.6 L (1.0-4.8) k/uL Sodium 133 L (137-145) mmol/L Chloride 97 L (98-107) mmol/L BUN 29 H (9-20) mg/dL Glucose 130 H (74-99) mg/dL Total Protein 5.8 L (6.3-8.2) g/dL Microbiology - Last 24 Hours (Table) 04/12/21 08:27 Gram Stain - Preliminary Sputum Sputum Culture - Preliminary 04/09/21 18:24 Blood Culture - Preliminary Blood No Growth after 72 hours 04/09/21 20:29 Gram Stain - Preliminary Sputum Sputum Culture - Preliminary Presumptive Staph aureus Radha albicans Assessment and Plan Plan: Severe abdominal pain cause is unclear with abnormal computed tomography scan of the abdomen and pelvis. Per GI services continue IV antibiotics tender plans for EGD the patient will need to be off Plavix for 5 days. Multifocal pneumonia. Sputum culture positive for resumption staph aureus Cand linn. Infectious disease and pulmonary services are following Leukocytosis, could be related to infectious process in the abdomen or in the lungs Will monitor closely continue with IV antibiotic at this time Acute COPD exacerbation Previous history of range she had cancer with history of surgery, chemotherapy and radiation therapy in 2005 Underlying history of hypertension Underlying history of hyperlipidemia Underlying history of chronic kidney disease stage II DVT prophylaxis Lovenox. GI prophylaxis Protonix Pulmonary, infectious disease and GI services following Patient remains on IV Solu-Medrol Patient remains on IV vancomycin and Unasyn and Flagyl Repeat labs ordered for a.m.
--- NOTE | 2021-04-13 12:28 | P.PN ---
Subjective Progress Note Date: 04/13/21 Principal diagnosis: Multifocal pneumonia The patient is seen today 04/12/2021 in follow-up on the regular medical floor. He is currently sitting up in bed. Having breakfast. Continues with a loose productive cough. Seems to be tolerating his diet today. Lungs sounds with b ilateral scattered rhonchi. Maintaining O2 saturation in the 90s on 2 L/m per nasal cannula. He's been afebrile. Hemodynamically stable. Sputum culture positive for presumptive staph aureus, Radha. Blood cultures are revealing no growth to date. Creatinine 0.94. Pro calcitonin 0.80. He remains on vancomycin, Unasyn and Flagyl. Continued on DuoNeb inhalations, Pulmicort and Perforomist inhalations, IV Solu-Medrol. The patient is seen today 04/13/2021 on the regular medical floor. He is currently sitting up in a chair at the bedside. Awake and alert in no acute distress. Breathing a bit easier today compared to yesterday. Still requiring oxygen at 2 L/m per nasal cannula to maintain O2 saturation in the 90s. Still coughing up some green sputum. Sputum culture is positive for MRSA and Radha. His x-ray continues to show right upper lobe patchy density, persistent but impr duke left lower lobe medially. Biapical capping unchanged. White count 16.8. Hemoglobin 11.6. Sodium 133. Potassium 3.6. Creatinine 0.88. He remains on vancomycin and Unasyn. Continued on DuoNeb inhalations, Pulmicort and Perforomist inhalations, IV Solu-Medrol. Objective - Vital Signs Vital signs: Vital Signs Temp 97.5 F L 04/13/21 07:44 Pulse 88 04/13/21 12:10 Resp 20 04/13/21 07:44 BP 168/97 04/13/21 07:44 Pulse Ox 92 L 04/13/21 07:44 Intake & Output 04/12/21 04/13/21 04/13/21 18:59 06:59 18:59 Output Total 720 3450 Balance -720 -3450 Output: Urine 720 3450 Other: Voiding Method Urinal Urinal # Voids 2 1 - Exam GENERAL EXAM: Alert, very pleasant 75-year-old gentleman, on 2 L nasal cannula, comfortable in no apparent distress. HEAD: Normocephalic. EYES: Normal reaction of pupils, equal size. NOSE: Clear with pink turbinates. THROAT: No erythema or exudates. NECK: No masses, no JVD. CHEST: No chest wall deformity. LUNGS: Equal air entry with coarse rhonchi bilaterally. CVS: S1 and S2 normal with no audible murmur, regular rhythm. ABDOMEN: No hepatosplenomegaly, normal bowel sounds, no guarding or rigidity. SPINE: No scoliosis or deformity SKIN: No rashes CENTRAL NERVOUS SYSTEM: No focal deficits, tone is normal in all 4 extremities. EXTREMITIES: There is no peripheral edema. No clubbing, no cyanosis. Perip heral pulses are intact. - Labs CBC & Chem 7: 04/13/21 06:26 04/13/21 06:26 Labs: Abnormal Lab Results - Last 24 Hours (Table) 04/13/21 04/13/21 Range/Units 06:26 06:26 WBC 16.8 H (3.8-10.6) k/uL RBC 4.18 L (4.30-5.90) m/uL Hgb 11.6 L (13.0-17.5) gm/dL Hct 36.1 L (39.0-53.0) % Neutrophils # 15.6 H (1.3-7.7) k/uL Lymphocytes # 0.6 L (1.0-4.8) k/uL Sodium 133 L (137-145) mmol/L Chloride 97 L (98-107) mmol/L BUN 29 H (9-20) mg/dL Glucose 130 H (74-99) mg/dL Total Protein 5.8 L (6.3-8.2) g/dL Microbiology - Last 24 Hours (Table) 04/09/21 20:29 Gram Stain - Final Sputum Sputum Culture - Final Methicillin resist S. aureus Radha albicans 04/12/21 08:27 Gram Stain - Preliminary Sputum Sputum Culture - Preliminary 04/09/21 18:24 Blood Culture - Preliminary Blood No Growth after 72 hours Assessment and Plan Assessment: 1 Multifocal pneumonia, with the chest x-ray showing COPD with interstitial densities in focal right upper lobe airspace disease, possibly related to aspiration pneumonia. Sputum culture positive for MRSA, Radha. Legionella u rine antigen negative 2 Acute hypoxic respiratory failure related to the above 3 Abdominal cramping, nausea vomiting and diarrhea, C. diff was negative. Abdominal x-ray showed no evidence of free air or bowel obstruction. There may be a mild regional ileus or enteritis present. CT of the abdomen and pelvis suggested possible infectious or inflammatory gastroenteritis 4 Coronary artery disease, status post bypass grafting 5 History of bilateral carotid artery stenosis, status post stenting 6 History of tonsillar/pharyngeal cancer, status post radical neck dissection followed by chemoradiation in 2005 7 Esophageal stricture, and patient required esophageal dilation on outpatient basis 8 History of bilateral apical consolidation seen on the CT of the chest likely related to post radiation changes 9 Hypothyroidism 10 Former smoker Plan: The patient was seen by Dr. Castaneda Chest x-ray and labs reviewed Sputum positive for MRSA and Radha Remains on vancomycin, Unasyn Continue bronchodilators, IV Solu-Medrol Titrate the FiO2 as tolerated We will continue to follow I, the cosigning physician, performed a history & physical examination of the patient. Lungs sounds with bilateral scattered rhonchi. Maintaining good O2 saturations in the 90s on 2 L/m per nasal cannula. I discussed the assessment and plan of care with my nurse practitioner, Jolynn Sibley. I attest to the above note as dictated by her.
--- NOTE | 2021-04-13 12:52 | P.PN ---
Subjective Progress Note Date: 04/13/21 Principal diagnosis: abdominal pain This is a 75-year-old male patient who came into the hospital with complaints of weakness, abdominal pain and nausea. He is being treated for pneumonia. Patient suffers from chronic constipation as well as dysphasia. He underwent a CT of the abdomen and pelvis on admission that showed prominent fluid-filled small bowel loops throughout the abdomen and pelvis with liquid stool in the right side of the colon. Some corresponding fold thickening along the gastric fundus and proximal body. Correlate for infectious or inflammatory gastroe nteritis. The patient is seen and examined today states he is feeling well overall. States abdominal pain has completely resolved as well as nausea. He had a bowel movement this morning. Patient states difficulty with swallowing is the same. Plan was for outpatient EGD with possible esophageal dilation this coming Sunday. However in lieu of patient being admitted to the hospital and currently on Plavix that will be rescheduled for sometime next week. Objective - Vital Signs Vital signs: Vital Signs Temp 97.5 F L 04/13/21 07:44 Pulse 92 04/13/21 08:21 Resp 20 04/13/21 07:44 BP 168/97 04/13/21 07:44 Pulse Ox 92 L 04/13/21 07:44 Intake & Output 04/12/21 04/13/21 04/13/21 18:59 06:59 18:59 Output Total 720 3450 Balance -720 -3450 Output: Urine 720 3450 Other: Voiding Method Urinal Urinal # Voids 2 1 - Exam General appearance: The patient is alert, oriented, appears in no acute distress. HET: Head is normocephalic and atraumatic. Conjunctiva pink. Sclera anicteric. Neck: Supple without lymphadenopathy. Abdomen: Soft, thin, nontender, nondistended with bowel sounds. No guarding or rigidity. Extremities: Normal skin color and turgor. No pedal edema Skin: No rashes, no jaundice Neurological: No focal deficits. Alert and oriented 3. - Labs CBC & Chem 7: 04/13/21 06:26 04/13/21 06:26 Labs: Abnormal Lab Results - Last 24 Hours (Table) 04/13/21 04/13/21 Range/Units 06:26 06:26 WBC 16.8 H (3.8-10.6) k/uL RBC 4.18 L (4.30-5.90) m/uL Hgb 11.6 L (13.0-17.5) gm/dL Hct 36.1 L (39.0-53.0) % Neutrophils # 15.6 H (1.3-7.7) k/uL Lymphocytes # 0.6 L (1.0-4.8) k/uL Sodium 133 L (137-145) mmol/L Chloride 97 L (98-107) mmol/L BUN 29 H (9-20) mg/dL Glucose 130 H (74-99) mg/dL Total Protein 5.8 L (6.3-8.2) g/dL Microbiology - Last 24 Hours (Table) 04/12/21 08:27 Gram Stain - Preliminary Sputum Sputum Culture - Preliminary 04/09/21 18:24 Blood Culture - Preliminary Blood No Growth after 72 hours 04/09/21 20:29 Gram Stain - Preliminary Sputum Sputum Culture - Preliminary Presumptive Staph aureus Radha albicans Assessment and Plan (1) Abdominal pain Narrative/Plan: MB 5-year-old male who presented to the emergency department 2 days ago with complaints of fever, abdominal pain, and nausea without vomiting. Patient has multiple comorbidities including a history of pharyngeal cancer status post radiation with ongoing dysphagia. This patient has been following with from gastroenterology and is scheduled for an EGD with possible dilation this Sunday with Dr. Byers. On presentation in the emergency department he was noted to have leukocytosis, CT of the abdomen and pelvis revealed prominent fluid-filled small bowel loops throughout the abdomen suggestive of inflammatory or infectious gastroenteritis, also revealed groundglass nodularity suggestive of atypical pneumonia, aspiration, or interstitial pneumonitis. Patient's symptoms have resolved. States he had a bowel movement today and he has felt better. Denies any blood in his stool or rectal bleeding. Last colonoscopy was at least 5 years ago. He does have a history of constipation and states he takes Colace at home without much improvement. Likely patient did have episode of gastroenteritis which is improving. Continue Unasyn and Flagyl. EGD will need to be postponed, as patient is currently on Plavix. Plavix needs to be held 5 days prior to EGD. We'll plan on scheduling this for sometime next week. Current Visit: Yes Status: Acute Code(s): R10.9 - UNSPECIFIED ABDOMINAL PAIN SNOMED Code(s): 90664325 (2) Dysphagia Current Visit: Yes Status: Acute Code(s): R13.10 - DYSPHAGIA, UNSPECIFIED SNOMED Code(s): 92193074 (3) Coronary artery disease Current Visit: No Status: Acute Code(s): I25.10 - ATHSCL HEART DISEASE OF [place] CORONARY ARTERY W/O ANG PCTRS SNOMED Code(s): 74636934 Plan: 1. Continue symptomatic and supportive care 2. Continue diet as tolerated 3. Continue IV antibiotics per recommendations from infectious disease 4. Continue Protonix 40 mg twice a day 5. Continue antiemetics as needed 6. Abdominal x-rays and CT of abdomen and pelvis reviewed 7. Continue MiraLAX daily, discussed with patient and his may titrate for constipation 8. Patient will be scheduled for outpatient EGD with possible balloon dilation next week Sunday. He is instructed to stop Plavix and ASA Sunday04/15/21 Thank you for this consultation, the patient is cleared for discharge from gastroenterology. We will sign off at this time Dr. Angela Byers I agree with the dictator's note, documented as a scribe by Alison Fam.
--- NOTE | 2021-04-13 13:30 | CDI ---
Documentation Clarification Form Date: 04/13/2021 12:53:33 PM From: Supriya Cowan RN, CCDS Admit Date: 04/11/2021 10:43:00 AM Patient Name: Tenzin Burgos Visit Number: [id number] Discharge Date: ATTENTION: The Clinical Documentation Specialists (CDI) and [facility] Coding Staff appreciate your assistance in clarifying documentation. Please respond to the clarification below the line at the bottom and electronically sign. The CDI & [facility] Coding staff will review the response and follow-up if needed. Please note: Queries are made part of the Legal Health Record. If you have any questions, please contact the author of this message via ITS. Dr. Kale Fischer Multifocal Pneumonia is documented in the progress note on 04/13/2021. To accurately capture the condition you are treating additional clarification regarding the type of pneumonia is requested. History/Risk Factors: COPD, CVA, CERD, Hypertension, Dysphagia, Pharyngeal cancer Clinical Indicators: 75-year-old male present on 04/09/21 with complaints of abdominal pain, fever, nausea and vomiting. 04/09 WBC/Left shift: 16.0, Neutrophils 14.4 04/09 Vital signs: 76/46 98.9 96 18 92 % RA 04/09 Acute abdominal series: suggest pneumonia, or atypical pneumonia also concern for ileus or enteritis. 04/09 CT abdomen pelvis: Increased basilar ground glass background emphysema. Correlate with patient symptoms to exclude possible suggestive atypical pneumonia, aspiration or interstitial pneumonitis. 04/11 Lung/Breathing assessment (pulmonary): wheezy and congested. 04/14 ID: MRSA Pneumonia Treatment: Pulmicort 1MG Inhalation BID Duoneb 0.5 MG-3 mg/QID .9% NS 1,000 MLS IV Bolus then @75 MLS/HR Unasyn 3 GM IVPB Q 6 HRS Vancomycin 1,000MG IVPB Q 24 HRS (PTD) Solu-medrol 60 MG IV Q6 HRS (Titrate per orders) Please clarify the type of pneumonia if known: (all that apply) [ x ] Aspiration Pneumonia, Due to food or vomitus [ ] Gram Negative Bacterial Pneumonia [ ] Bacterial Pneumonia Due to Staph areas [ ] Other, please specify [ ] Unable to determine (Template Last Revised: October 2020) MTDD
--- NOTE | 2021-04-13 13:51 | CDI ---
Documentation Clarification Form Date: 04/13/2021 01:32:11 PM From: Supriya Cowan RN, CCDS Admit Date: 04/11/2021 10:43:00 AM Patient Name: Tenzin Burgos Visit Number: [id number] Discharge Date: ATTENTION: The Clinical Documentation Specialists (CDI) and [facility] Coding Staff appreciate your assistance in clarifying documentation. Please respond to the clarification below the line at the bottom and electronically sign. The CDI & [facility] Coding staff will review the response and follow-up if needed. Please note: Queries are made part of the Legal Health Record. If you have any questions, please contact the author of this message via ITS. Dr. Kale Fischer The Registered Dietitian assessment on 04/11/2021, indicates this patient meets criteria for underweight and chronic inadequate oral intake due to swallowing difficulty. Based on this information and the findings below, is there an additional diagnosis that is clinically appropriate for this patient? History/Risk Factors: Aspiration pneumonia, Tonsil/pharyngeal cancer, Dysphagia, CVA, Possible esophageal stricture due to radiation treatments. Clinical Indicators: 75-year-old male with history of tonsil/pharyngeal cancer and surgical treatment 2005. He is still having dysphagia, and was schedule for dilation for possible esophageal stricture due to radiation treatment. Nutrition assessment has appetite change greater than 6 months, low BMI, underweight. Chronic inadequate oral intake due to swallowing difficulty. 04/13 Current BMI: 17.9, BUN 30, CR 1.38 04/09 Labs: WBC 16.0 04/10 Total protein 5.5, Albumin 3.50 Insufficient energy intake: Yes Weight Loss: Yes Decreased hand humanities teacher strength: Treatment: Dietary Consult: Yes Ensure Enlive BID Monitor PO Texture-modified diet ground meats Increase PO intake from 50-75 % Is there an additional diagnosis that is clinically appropriate for this patient? [ ] Mild Protein-Calorie Malnutrition [ ] Moderate Protein-Calorie Malnutrition [ x] Severe Protein-Calorie Malnutrition [ ] Other condition, please specify [ ] Unable to Determine (Template Last Revised: October 2020) MTDD
--- NOTE | 2021-04-13 17:44 | PN ---
PROGRESS NOTE DATE OF SERVICE: 04/13/2021 REASON FOR FOLLOWUP: MRSA pneumonia. INTERVAL HISTORY: The patient is afebrile. The patient is feeling better, breathing comfortably. Denies any chest pain. No shortness or breath or cough. no vomiting. No abdominal pain. No diarrhea. Did have a bowel movement. PHYSICAL EXAMINATION: Blood pressure 113/97 with pulse 99. Temperature 97.5, he is 92% on 2 L nasal cannula. General description is an elderly male up in the bed in no distress. Respiratory system: Unlabored breathing, decreased breath sounds in the bases. No wheeze. Heart S1, S2 regular rate and rhythm. Abdomen soft, no tenderness. LABS: Hemoglobin 11.2, white count 16.8, BUN of 11, creatinine 0.8. DIAGNOSTIC IMPRESSION AND PLAN: Patient with MRSA pneumonia. The patient has shown overall clinical improvement. He will continue with IV vancomycin. Plan to finish therapy with oral Zyvox and close outpatient followup. MMODL / IJN: [id number] /
[2021-04-13] MEDS: MONTELUKAST 10 MG TAB PO SCH (21:58)
[2021-04-14] MEDS: methylPREDNISolone SOD SUCCI 125 MG/2 ML VIAL IV SCH ×2 (06:12→12:10)
[2021-04-14] MEDS: LEVOTHYROXINE 125 MCG TAB PO SCH (06:23)
[2021-04-14] MEDS: IPRATROPIUM-ALBUTEROL 3 ML NEB INHALATION SCH ×4 (08:00→20:34)
[2021-04-14] MEDS: FORMOTEROL FUMARATE 20 MCG/2 ML NEBU INHALATION SCH ×2 (08:00→20:34)
[2021-04-14] MEDS: BUDESONIDE 1 MG/2 ML NEBU INHALATION SCH ×2 (08:00→20:34)
[2021-04-14 09:15] LABS: Albumin 3.8 g/dL (3.80-4.90); Albumin/Globulin Ratio 1.81 (1.60-3.17); Calcium 9.3 mg/dL (8.7-10.3); Globulin 2.1 g/dL (1.6-3.3); Non-African American GFR(CKD) 73.3 (60.0-200.0); Potassium 3.9 mmol/L (3.5-5.5); Total Bilirubin 0.4 mg/dL (0.3-1.2); Total Protein 5.9 g/dL (6.2-8.2)
[2021-04-14 09:32] LABS: INR 1.11 (0.90-1.11)
[2021-04-14] MEDS: PANTOPRAZOLE 40 MG TABLET PO SCH ×2 (09:48→21:04)
[2021-04-14] MEDS: DOCUSATE 100 MG CAP PO SCH ×2 (09:48→21:04)
[2021-04-14] MEDS: ASPIRIN 81 MG PO SCH (09:48)
[2021-04-14] MEDS: FINASTERIDE 5 MG TAB PO SCH (09:49)
[2021-04-14] MEDS: CLOPIDOGREL 75 MG TAB PO SCH (09:49)
[2021-04-14] MEDS: ATORVASTATIN 20 MG TAB PO SCH (09:49)
[2021-04-14] MEDS: ENOXAPARIN 40 MG/0.4 ML SYRINGE SQ SCH (09:51)
[2021-04-14] MEDS: polyethylene glycoL 3350 17 GM POWD.PACK PO SCH (09:52)
[2021-04-14] MEDS: SODIUM CHLORIDE 0.9% 1,000 ML IV SCH (09:58)
[2021-04-14] MEDS ORDERED: VANCOMYCIN TROUGH DUE 1 EACH MISC MISCELLANE ONE (11:00)
[2021-04-14] MEDS: VANCOMYCIN 1,000 MG in SODIUM CHLORIDE 0.9% 250 ML IVPB SCH (11:48)
--- NOTE | 2021-04-14 15:26 | P.PN ---
Subjective Progress Note Date: 04/14/21 On today's evaluation of 04/14/2021, seeing this patient for a follow-up. Clinically the patient is improving and the patient has shown good progress over the past 24 hours. The patient is also shown improvement and x-ray findings showed improved left lower lobe pulmonary consolidation and increased patchy density in the right upper lobe is also improving. As mentioned earlier, the patient cultured MRSA in the sputum the patient is currently on IV vancomycin. Cough and congestion is improved and the patient is producing much of sputum compared to earlier evaluation. He is afebrile. He is hemodynamically stable. He is on 2 L about 2 by nasal cannula. No other significant events otherwise for now. Objective - Vital Signs Vital signs: Vital Signs Temp 97.6 F 04/14/21 14:00 Pulse 84 04/14/21 14:00 Resp 18 04/14/21 14:00 BP 94/58 04/14/21 14:00 Pulse Ox 90 L 04/14/21 14:00 Intake & Output 04/13/21 04/14/21 04/14/21 18:59 06:59 18:59 Intake Total 300 Balance 300 Weight 56.699 kg Intake: Oral 300 Other: Voiding Method Urinal Urinal Urinal # Voids 3 2 - Exam GENERAL EXAM: Alert, very pleasant 75-year-old gentleman, on 2 L nasal cannula, comfortable in no apparent distress. HEAD: Normocephalic. EYES: Normal reaction of pupils, equal size. NOSE: Clear with pink turbinates. THROAT: No erythema or exudates. NECK: No masses, no JVD. CHEST: No chest wall deformity. LUNGS: Equal air entry with coarse rhonchi bilaterally. CVS: S1 and S2 normal with no audible murmur, regular rhythm. ABDOMEN: No hepatosplenomegaly, normal bowel sounds, no guarding or rigidity. SPINE: No scoliosis or deformity SKIN: No rashes CENTRAL NERVOUS SYSTEM: No focal deficits, tone is normal in all 4 extremities. EXTREMITIES: There is no peripheral edema. No clubbing, no cyanosis. Peripheral pulses are intact. - Labs CBC & Chem 7: 04/13/21 06:26 04/14/21 05:23 Labs: Abnormal Lab Results - Last 24 Hours (Table) 04/14/21 04/14/21 Range/Units 05:23 05:23 PT 12.0 H (9.9-11.9) sec Sodium 134 L (135-145) mmol/L BUN 32.0 H (9.0-27.0) mg/dL BUN/Creatinine Ratio 32.00 H (12.00-20.00) Ratio Glucose 124 H (70-110) mg/dL Total Protein 5.9 L (6.2-8.2) g/dL Microbiology - Last 24 Hours (Table) 04/12/21 08:27 Gram Stain - Final Sputum Sputum Culture - Final Radha albicans 04/09/21 18:24 Blood Culture - Preliminary Blood No Growth after 96 hours Assessment and Plan Plan: 1 Multifocal pneumonia, with the chest x-ray showing COPD with interstitial densities in focal right upper lobe airspace disease, possibly related to aspiration pneumonia. Sputum culture positive for MRSA, Radha. And the patient is responding nicely to IV vancomycin. There is interval clearing of the pulmonary infiltrates on the repeat chest x-ray and the patient is clinically feeling better with much improved chest congestion. 2 Acute hypoxic respiratory failure related to the above 3 Abdominal cramping, nausea vomiting and diarrhea, C. diff was negative. Abdominal x-ray showed no evidence of free air or bowel obstruction. There may be a mild regional ileus or enteritis present. CT of the abdomen and pelvis suggested possible infectious or inflammatory gastroenteritis, improved 4 Coronary artery disease, status post bypass grafting 5 History of bilateral carotid artery stenosis, status post stenting 6 History of tonsillar/pharyngeal cancer, status post radical neck dissection followed by chemoradiation in 2005 7 Esophageal stricture, and patient required esophageal dilation on outpatient basis 8 History of bilateral apical consolidation seen on the CT of the chest likely related to post radiation changes 9 Hypothyroidism 10 Former smoker Plan: Continue vancomycin for now and consider switching this patient and Zyvox with the next 24 hours Reevaluate oxygenation and assess the patient's need for home O2. Currently on 2 L of oxygen by nasal cannula. Continue with IV Solu-Medrol at a dose of 40 mg every 8 hours and the dose was reduced Continue pulmonary toileting Aspiration precautions Titrate the FiO2 as tolerated We will continue to follow
[2021-04-14] MEDS: methylPREDNISolone SOD SUCCI 40 MG/ML 1 ML VIAL IV SCH (17:37)
--- NOTE | 2021-04-14 18:55 | P.PN ---
Subjective Progress Note Date: 04/14/21 Tenzin Burgos, is a 75-year-old male who presented to [facility] emergency room with a chief complaint of fever nausea and severe abdominal pain He was evaluated in the emergency room vital examination on presentation revealed a temperature of 100.5 pulse 106 respiration 18 blood pressure 120/68 pulse ox 96% on 2 L nasal cannula and 92% on room air Laboratory data reveals a white blood count of 16.0 hemoglobin 12.7 platelet count 256 sodium 138 potassium 4.2 chloride 97 BUN 30 creatinine 1.38 Testing in the emergency room revealed computed tomography scan of the abdomen and pelvis revealed prominent fluid-filled small bowel loops throughout the abdomen suggestive of inflammatory or infectious gastroenteritis, CT also revealed groundglass nodularity suggestive of atypical pneumonia aspiration or interstitial pneumonitis Patient was admitted to medical floor for further evaluation and treatment Past medical history is significant for 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 On 04/10/2021 Patient was seen and examined on the medical floor, he is alert and oriented x 3 in no distress, he is complaining of abdominal pain and occasional cough otherwise he denies any complaints there is no fever or chills no headache or dizziness no chest pain no shortness of breath no palpitation no nausea or vomiting, no diarrhea no blood in the stools no burning with urination no frequency or urgency and no hematuria, there is no weakness or numbness in any of the extremities no change in vision speech or gait. On 04/11/2021 Patient was seen and examined on the medical floor, he is alert and oriented x 3 in no distress, patient is still complaining of abdominal discomfort otherwise he denies any complaints there is no fever or chills no headache or dizziness no chest pain no shortness of breath no palpitation no cough no nausea or vomiting no abdominal pain no diarrhea no blood in the stools no burning with urination no frequency or urgency and no hematuria, there is no weakness or numbness in any of the extremities no change in vision speech or gait. On 04/12/2021 Patient was seen and examined on the medical floor, he is alert and oriented x 3 in no distress, he denies any complaints there is no fever or chills no headache or dizziness no chest pain no shortness of breath no palpitation no cough no nausea or vomiting no abdominal pain no diarrhea no blood in the stools no burning with urination no frequency or urgency and no hematuria, there is no weakness or numbness in any of the extremities no change in vision speech or gait. GI and pulmonary recommendation review continue IV antibiotics at this time will follow in a.m. On 04/13/2021 patient's alert and oriented 3 patient reports significant improvement with shortness of breath and chest pain. Patient remains on IV Solu-Medrol Unasyn and vancomycin. Repeat chest x-ray completed showing increased patchy density in the right upper lobe. Persistent but improved density in the left lower lobe medially. Pulmonary, infectious disease and GI services are following. Patient states improvement with abdominal pain denies nausea vomiting or diarrhea. Patient reports he had normal bowel movement last night. On 04/14/2021 Patient was seen and examined on the medical floor, he is alert and oriented x 3 in no distress, he is still complaining of cough otherwise he denies any complaints there is no fever or chills no headache or dizziness no chest pain no shortness of breath no palpitation no nausea or vomiting no abdominal pain no diarrhea no blood in the stools no burning with urination no frequency or urgency and no hematuria, there is no weakness or numbness in any of the extremities no change in vision speech or gait. Objective - Vital Signs Vital signs: Vital Signs Temp 97.4 F L 04/14/21 08:00 Pulse 84 04/14/21 08:20 Resp 18 04/14/21 08:00 BP 157/89 04/14/21 08:00 Pulse Ox 91 L 04/14/21 08:00 Intake & Output 04/13/21 04/14/21 04/14/21 18:59 06:59 18:59 Intake Total 300 Balance 300 Intake: Oral 300 Other: Voiding Method Urinal Urinal # Voids 3 2 - Exam In general patient is alert and oriented x 3 in no distress HEENT head normocephalic and atraumatic Neck is supple no JVD no goiter no lymphadenopathy no carotid bruit Chest examination is clear to auscultation no crackles no wheezing Cardiac exam reveals regular heart sounds S1 and S2 no gallops no murmurs Abdomen is soft with mild diffuse tenderness no organomegaly no rigidity or rebound and no palpable masses Extremity exam reveals no edema no cyanosis or clubbing Neurological examination reveals no gross focal deficits - Labs CBC & Chem 7: 04/13/21 06:26 04/14/21 05:23 Labs: Abnormal Lab Results - Last 24 Hours (Table) 04/14/21 04/14/21 Range/Units 05:23 05:23 PT 12.0 H (9.9-11.9) sec Sodium 134 L (135-145) mmol/L BUN 32.0 H (9.0-27.0) mg/dL BUN/Creatinine Ratio 32.00 H (12.00-20.00) Ratio Glucose 124 H (70-110) mg/dL Total Protein 5.9 L (6.2-8.2) g/dL Microbiology - Last 24 Hours (Table) 04/12/21 08:27 Gram Stain - Final Sputum Sputum Culture - Final Radha albicans 04/09/21 18:24 Blood Culture - Preliminary Blood No Growth after 96 hours 04/09/21 20:29 Gram Stain - Final Sputum Sputum Culture - Final Methicillin resist S. aureus Radha albicans Assessment and Plan Plan: Severe abdominal pain cause is unclear with abnormal computed tomography scan of the abdomen and pelvis. Per GI services continue IV antibiotics tender plans for EGD the patient will need to be off Plavix for 5 days. Multifocal pneumonia. Sputum culture positive for resumption staph aureus , Radha. Infectious disease and pulmonary services are following, currently maintained on IV vancomycin Leukocytosis, could be related to infectious process in the abdomen or in the lungs Will monitor closely continue with IV antibiotic at this time Acute COPD exacerbation Previous history of range she had cancer with history of surgery, chemotherapy and radiation therapy in 2005 Underlying history of hypertension Underlying history of hyperlipidemia Underlying history of chronic kidney disease stage II DVT prophylaxis Lovenox. GI prophylaxis Protonix Pulmonary, infectious disease and GI services following Patient remains on IV Solu-Medrol Patient remains on IV vancomycin and Unasyn and Flagyl Repeat labs ordered for a.m.
--- NOTE | 2021-04-14 19:14 | PN ---
PROGRESS NOTE DATE OF SERVICE: 04/14/2021. REASON FOR FOLLOWUP: MRSA pneumonia. INTERVAL HISTORY: The patient is afebrile. The patient is feeling better. He is breathing slightly comfortably. Denies having any chest pain. Cough has decreased intensity. No vomiting. No abdominal pain. No diarrhea. PHYSICAL EXAMINATION: Blood pressure 94/58, pulse of 82, temperature is 97.3. He is 90% on 2 L nasal cannula. General description is an elderly male up in the bed in no distress. Respiratory system: Unlabored breathing, decreased intensity of breath sounds in the base, with no wheeze. Heart S1, S2. Regular rate and rhythm. LABS: BUN of 32, creatinine 1.0. Vancomycin trough is low. DIAGNOSTIC IMPRESSION AND PLAN: Patient with MRSA pneumonia. Vanco dose to be adjusted up to keep the trough around 15. Plan is for finish therapy with oral Zyvox. Prescription sent to pharmacy and close outpatient followup. MMMALIAL / KAELN: [id number] /
[2021-04-14] MEDS: amLODIPine 5 MG TAB PO PRN (21:04)
[2021-04-14] MEDS: MONTELUKAST 10 MG TAB PO SCH (21:04)
[2021-04-15] MEDS: VANCOMYCIN 1,000 MG in SODIUM CHLORIDE 0.9% 250 ML IVPB SCH ×2 (00:25→12:48)
[2021-04-15] MEDS: methylPREDNISolone SOD SUCCI 40 MG/ML 1 ML VIAL IV SCH ×3 (00:25→15:24)
[2021-04-15] MEDS: SODIUM CHLORIDE 0.9% 1,000 ML IV SCH ×2 (00:26→15:35)
[2021-04-15] MEDS: LEVOTHYROXINE 125 MCG TAB PO SCH (06:03)
[2021-04-15] MEDS: BUDESONIDE 1 MG/2 ML NEBU INHALATION SCH ×2 (06:58→20:13)
[2021-04-15] MEDS: IPRATROPIUM-ALBUTEROL 3 ML NEB INHALATION SCH ×4 (06:58→20:13)
[2021-04-15] MEDS: FORMOTEROL FUMARATE 20 MCG/2 ML NEBU INHALATION SCH ×2 (07:24→20:13)
[2021-04-15] MEDS: DOCUSATE 100 MG CAP PO SCH ×2 (08:49→21:26)
[2021-04-15] MEDS: ATORVASTATIN 20 MG TAB PO SCH (08:49)
[2021-04-15] MEDS: ASPIRIN 81 MG PO SCH (08:49)
[2021-04-15] MEDS: PANTOPRAZOLE 40 MG TABLET PO SCH ×2 (08:50→21:26)
[2021-04-15] MEDS: CLOPIDOGREL 75 MG TAB PO SCH (08:50)
[2021-04-15] MEDS: ENOXAPARIN 40 MG/0.4 ML SYRINGE SQ SCH (08:52)
[2021-04-15] MEDS: polyethylene glycoL 3350 17 GM POWD.PACK PO SCH (08:53)
[2021-04-15] MEDS: FINASTERIDE 5 MG TAB PO SCH (09:12)
[2021-04-15 09:45] LABS: Basophils % (A) 0 %; Eosinophils % (A) 0 %; HCT 39.6 % (39.0-53.0); Lymphocytes # (A) 0.8 k/uL (1.0-4.8); Lymphocytes % (A) 5 %; MCH 28.4 pg (25.0-35.0); MCHC 32.9 g/dL (31.0-37.0); MCV 86.3 fL (80.0-100.0); Mean Platelet Volume 7.9; Monocytes # (A) 0.6 k/uL (0-1.0); Monocytes % (A) 4 %; Neutrophils # (A) 13.8 k/uL (1.3-7.7); Neutrophils % (A) 90 %; Platelet Count 324 k/uL (150-450); RBC 4.59 m/uL (4.30-5.90); RDW 14.4 % (11.5-15.5); WBC 15.3 k/uL (3.8-10.6)
--- NOTE | 2021-04-15 09:58 | P.PN ---
Subjective Progress Note Date: 04/15/21 Tenzin Burgos, is a 75-year-old male who presented to [facility] emergency room with a chief complaint of fever nausea and severe abdominal pain He was evaluated in the emergency room vital examination on presentation revealed a temperature of 100.5 pulse 106 respiration 18 blood pressure 120/68 pulse ox 96% on 2 L nasal cannula and 92% on room air Laboratory data reveals a white blood count of 16.0 hemoglobin 12.7 platelet count 256 sodium 138 potassium 4.2 chloride 97 BUN 30 creatinine 1.38 Testing in the emergency room revealed computed tomography scan of the abdomen and pelvis revealed prominent fluid-filled small bowel loops throughout the abdomen suggestive of inflammatory or infectious gastroenteritis, CT also revealed groundglass nodularity suggestive of atypical pneumonia aspiration or interstitial pneumonitis Patient was admitted to medical floor for further evaluation and treatment Past medical history is significant for 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 On 04/10/2021 Patient was seen and examined on the medical floor, he is alert and oriented x 3 in no distress, he is complaining of abdominal pain and occasional cough otherwise he denies any complaints there is no fever or chills no headache or dizziness no chest pain no shortness of breath no palpitation no nausea or vomiting, no diarrhea no blood in the stools no burning with urination no frequency or urgency and no hematuria, there is no weakness or numbness in any of the extremities no change in vision speech or gait. On 04/11/2021 Patient was seen and examined on the medical floor, he is alert and oriented x 3 in no distress, patient is still complaining of abdominal discomfort otherwise he denies any complaints there is no fever or chills no headache or dizziness no chest pain no shortness of breath no palpitation no cough no nausea or vomiting no abdominal pain no diarrhea no blood in the stools no burning with urination no frequency or urgency and no hematuria, there is no weakness or numbness in any of the extremities no change in vision speech or gait. On 04/12/2021 Patient was seen and examined on the medical floor, he is alert and oriented x 3 in no distress, he denies any complaints there is no fever or chills no headache or dizziness no chest pain no shortness of breath no palpitation no cough no nausea or vomiting no abdominal pain no diarrhea no blood in the stools no burning with urination no frequency or urgency and no hematuria, there is no weakness or numbness in any of the extremities no change in vision speech or gait. GI and pulmonary recommendation review continue IV antibiotics at this time will follow in a.m. On 04/13/2021 patient's alert and oriented 3 patient reports significant improvement with shortness of breath and chest pain. Patient remains on IV Solu-Medrol Unasyn and vancomycin. Repeat chest x-ray completed showing increased patchy density in the right upper lobe. Persistent but improved density in the left lower lobe medially. Pulmonary, infectious disease and GI services are following. Patient states improvement with abdominal pain denies nausea vomiting or diarrhea. Patient reports he had normal bowel movement last night. On 04/14/2021 Patient was seen and examined on the medical floor, he is alert and oriented x 3 in no distress, he is still complaining of cough otherwise he denies any complaints there is no fever or chills no headache or dizziness no chest pain no shortness of breath no palpitation no nausea or vomiting no abdominal pain no diarrhea no blood in the stools no burning with urination no frequency or urgency and no hematuria, there is no weakness or numbness in any of the extremities no change in vision speech or gait. On 04/15/2021 patient's alert and oriented 3. Patient's sputum positive for MRSA. Prescription sent for Zyvox per infectious disease discussed her case management will check on coverage. Repeat chest x-ray has been ordered per pulmonary. Patient remains on IV vancomycin while inpatient. At this time patient denies chest pain. Patient still having productive cough. Patient denies any nausea vomiting or diarrhea. Patient denies any urinary burning or frequency Objective - Vital Signs Vital signs: Vital Signs Temp 97.7 F 04/15/21 08:00 Pulse 87 04/15/21 08:00 Resp 18 04/15/21 08:00 BP 151/88 04/15/21 08:00 Pulse Ox 92 L 04/15/21 08:00 Intake & Output 04/14/21 04/15/21 04/15/21 18:59 06:59 18:59 Intake Total 1200 Output Total 1650 Balance 1200 -1650 Weight 56.699 kg Intake: Oral 1200 Output: Urine 1650 Other: Voiding Method Urinal # Voids 3 - Exam In general patient is alert and oriented x 3 in no distress HEENT head normocephalic and atraumatic Neck is supple no JVD no goiter no lymphadenopathy no carotid bruit Chest examination is clear to auscultation no crackles no wheezing Cardiac exam reveals regular heart sounds S1 and S2 no gallops no murmurs Abdomen is soft with mild diffuse tenderness no organomegaly no rigidity or rebound and no palpable masses Extremity exam reveals no edema no cyanosis or clubbing Neurological examination reveals no gross focal deficits - Labs CBC & Chem 7: 04/15/21 09:32 04/14/21 05:23 Labs: Abnormal Lab Results - Last 24 Hours (Table) 04/15/21 Range/Units 09:32 WBC 15.3 H (3.8-10.6) k/uL Neutrophils # 13.8 H (1.3-7.7) k/uL Lymphocytes # 0.8 L (1.0-4.8) k/uL Microbiology - Last 24 Hours (Table) 04/09/21 18:24 Blood Culture - Preliminary Blood No Growth after 120 hours 04/12/21 08:27 Gram Stain - Final Sputum Sputum Culture - Final Radha albicans Assessment and Plan Plan: Severe abdominal pain cause is unclear with abnormal computed tomography scan of the abdomen and pelvis. Per GI services continue IV antibiotics tender plans for EGD the patient will need to be off Plavix for 5 days. MRSA pneumonia. Sputum culture positive for resumption staph aureus , Radha. Infectious disease and pulmonary services are following, currently maintained on IV vancomycin Leukocytosis, could be related to infectious process in the abdomen or in the lungs Will monitor closely continue with IV antibiotic at this time Acute COPD exacerbation Previous history of range she had cancer with history of surgery, chemotherapy and radiation therapy in 2005 Underlying history of hypertension Underlying history of hyperlipidemia Underlying history of chronic kidney disease stage II DVT prophylaxis Lovenox. GI prophylaxis Protonix Pulmonary, infectious disease and GI services following Patient remains on IV Solu-Medrol Patient remains on IV vancomycin Prescription for zyvox per ID awaiting coverage per case management repeat chest x-ray ordered per pulmonary
[2021-04-15 10:00] LABS: ALT 17 U/L (4-49); AST 24 U/L (17-59); African American GFR (CKD) 89 (>60 ml/min/1.73 sqM); Albumin 3.7 g/dL (3.5-5.0); Albumin/Globulin Ratio 1.5; Alkaline Phosphatase 54 U/L (38-126); Anion Gap 10 mmol/L; Blood Urea Nitrogen 36 mg/dL (9-20); Calcium 9.4 mg/dL (8.4-10.2); Carbon Dioxide 28 mmol/L (22-30); Chloride 93 mmol/L (98-107); Globulin 2.4 g/dL; Glucose 150 mg/dL (74-99); Non-African American GFR(CKD) 77 (>60 ml/min/1.73 sqM); Potassium 4.2 mmol/L (3.5-5.1); Sodium 131 mmol/L (137-145); Total Bilirubin 0.4 mg/dL (0.2-1.3); Total Protein 6.1 g/dL (6.3-8.2)
--- NOTE | 2021-04-15 10:10 | XR ---
EXAMINATION TYPE: XR chest 2V DATE OF EXAM: 04/15/2021 COMPARISON: Chest x-ray [address] chest August 12, 2020 HISTORY: Pneumonia follow-up. TECHNIQUE: Frontal and lateral views of the chest are obtained. FINDINGS: There chronic parenchymal changes bilaterally without suspicious focal air space opacity, pleural effusion, or pneumothorax seen. Persistent severe biapical pleural/parenchymal scarring. Over lying sternal wires and mediastinal clips redemonstrated. The cardiac silhouette size remains within normal limits. The osseous structures are intact. IMPRESSION: Chronic changes without new acute pulmonary process on today's study.
--- NOTE | 2021-04-15 16:58 | PN ---
PROGRESS NOTE DATE OF SERVICE: 04/15/2021 REASON FOR FOLLOWUP: MRSA pneumonia. INTERVAL HISTORY: The patient is afebrile. The patient is currently breathing comfortably. The patient denies having any chest pain or shortness of breath. Occasional cough. No abdominal pain or diarrhea. PHYSICAL EXAMINATION: Blood pressure is 169/76, pulse of 97, temperature 97.7. He is 96% on room air. GENERAL DESCRIPTION: General description is an elderly male up in the bed in no distress. RESPIRATORY SYSTEM: Unlabored breathing. Decreased intensity of breath sounds. No wheeze. HEART: S1, S2. Regular rate and rhythm. ABDOMEN: Soft. No tenderness. LABS: Hemoglobin is 13, white count 15.3, BUN of 36, creatinine 0.97. DIAGNOSTIC IMPRESSION AND PLAN: Patient with MRSA pneumonia, currently on vancomycin. White count is slightly elevated, more likely because of steroid effect. We will monitor closely. Continue with vancomycin inpatient. To finish therapy with oral Zyvox and close outpatient followup. Family at the bedside. Questions were answered. MMODL / IJN: [id number] / ANDRA
--- NOTE | 2021-04-15 18:39 | P.PN ---
Subjective Progress Note Date: 04/15/21 On 04/15/2021,, the patient is still being treated for MRSA pneumonia. The patient is doing well. As mentioned earlier, the patient continues to improve. He is afebrile. Breathing comfortably. His breathing is nonlabored. Limited to occasional cough with limited amount of sputum production. He does have MRSA in his sputum. A repeat chest x-ray was done today and the patient was found to have chronic changes without any new acute abnormalities. There is evidence of bilateral chronic parenchymal changes without suspicion for any focal airspace opacity or pleural effusion or pneumothorax. The patient is on vancomycin for now. He is on Lovenox for DVT prophylaxis. Outpatient medication of been ordered resume. Solu-Medrol was tapered down to 40 mg every 8 hours. He is on 2 L by nasal cannula. Objective - Vital Signs Vital signs: Vital Signs Temp 97.7 F 04/15/21 14:00 Pulse 96 04/15/21 15:31 Resp 14 04/15/21 15:27 BP 148/77 04/15/21 15:27 Pulse Ox 98 04/15/21 15:27 Intake & Output 04/14/21 04/15/21 04/15/21 18:59 06:59 18:59 Intake Total 1200 Output Total 1650 Balance 1200 -1650 Weight 56.699 kg Intake: Oral 1200 Output: Urine 1650 Other: Voiding Method Urinal Urinal # Voids 3 - Exam GENERAL EXAM: Alert, very pleasant 75-year-old gentleman, on 2 L nasal cannula, comfortable in no apparent distress. HEAD: Normocephalic. EYES: Normal reaction of pupils, equal size. NOSE: Clear with pink turbinates. THROAT: No erythema or exudates. NECK: No masses, no JVD. CHEST: No chest wall deformity. LUNGS: Equal air entry with coarse rhonchi bilaterally. CVS: S1 and S2 normal with no audible murmur, regular rhythm. ABDOMEN: No hepatosplenomegaly, normal bowel sounds, no guarding or rigidity. SPINE: No scoliosis or deformity SKIN: No rashes CENTRAL NERVOUS SYSTEM: No focal deficits, tone is normal in all 4 extremities. EXTREMITIES: There is no peripheral edema. No clubbing, no cyanosis. P eripheral pulses are intact. - Labs CBC & Chem 7: 04/15/21 09:32 04/15/21 09:32 Labs: Abnormal Lab Results - Last 24 Hours (Table) 04/15/21 04/15/21 Range/Units 09:32 09:32 WBC 15.3 H (3.8-10.6) k/uL Neutrophils # 13.8 H (1.3-7.7) k/uL Lymphocytes # 0.8 L (1.0-4.8) k/uL Sodium 131 L (137-145) mmol/L Chloride 93 L (98-107) mmol/L BUN 36 H (9-20) mg/dL Glucose 150 H (74-99) mg/dL Total Protein 6.1 L (6.3-8.2) g/dL Microbiology - Last 24 Hours (Table) 04/09/21 18:24 Blood Culture - Preliminary Blood No Growth after 120 hours Assessment and Plan Plan: 1 Multifocal pneumonia, with the chest x-ray showing COPD with interstitial densities in focal right upper lobe airspace disease, possibly related to aspiration pneumonia. Sputum culture positive for MRSA, Radha. Clinically improving still on vancomycin, repeat chest x-ray from today was noted 2 Acute hypoxic respiratory failure related to the above, currently on 2 L nasal cannula 3 Abdominal cramping, nausea vomiting and diarrhea, C. diff was negative. Abdominal x-ray showed no evidence of free air or bowel obstruction. There may be a mild regional ileus or enteritis present. CT of the abdomen and pelvis suggested possible infectious or inflammatory gastroenteritis, improved 4 Coronary artery disease, status post bypass grafting 5 History of bilateral carotid artery stenosis, status post stenting 6 History of tonsillar/pharyngeal cancer, status post radical neck dissection followed by chemoradiation in 2005 7 Esophageal stricture, and patient required esophageal dilation on outpatient basis 8 History of bilateral apical consolidation seen on the CT of the chest likely related to post radiation changes 9 Hypothyroidism 10 Former smoker Plan: Continue vancomycin for now and consider switching this patient oral vancomycin at time of discharge Reevaluate oxygenation and assess the patient's need for home O2. Currently on 2 L of oxygen by nasal cannula. Continue with IV Solu-Medrol at a dose of 40 mg every 8 hours and switch the patient to oral prednisone as of tomorrow Continue pulmonary toileting repeat chest x-ray was noted Aspiration precautions Titrate the FiO2 as tolerated We will continue to follow
[2021-04-15] MEDS: MONTELUKAST 10 MG TAB PO SCH (21:26)
[2021-04-16] MEDS: methylPREDNISolone SOD SUCCI 40 MG/ML 1 ML VIAL IV SCH ×2 (00:02→10:01)
[2021-04-16] MEDS: VANCOMYCIN 1,000 MG in SODIUM CHLORIDE 0.9% 250 ML IVPB SCH ×2 (00:02→12:04)
[2021-04-16] MEDS: SODIUM CHLORIDE 0.9% 1,000 ML IV SCH (03:19)
[2021-04-16] MEDS: LEVOTHYROXINE 125 MCG TAB PO SCH (06:10)
[2021-04-16] MEDS: IPRATROPIUM-ALBUTEROL 3 ML NEB INHALATION SCH ×2 (07:42→11:14)
[2021-04-16] MEDS: FORMOTEROL FUMARATE 20 MCG/2 ML NEBU INHALATION SCH (07:42)
[2021-04-16] MEDS: BUDESONIDE 1 MG/2 ML NEBU INHALATION SCH (07:42)
[2021-04-16 08:14] VITALS: BP 167/84; RESP 16; TEMP 97.9
[2021-04-16] MEDS: DOCUSATE 100 MG CAP PO SCH (10:02)
[2021-04-16] MEDS: ATORVASTATIN 20 MG TAB PO SCH (10:02)
[2021-04-16] MEDS: ENOXAPARIN 40 MG/0.4 ML SYRINGE SQ SCH (10:02)
[2021-04-16] MEDS: ASPIRIN 81 MG PO SCH (10:02)
[2021-04-16] MEDS: FINASTERIDE 5 MG TAB PO SCH (10:02)
[2021-04-16] MEDS: CLOPIDOGREL 75 MG TAB PO SCH (10:02)
[2021-04-16] MEDS: polyethylene glycoL 3350 17 GM POWD.PACK PO SCH (10:02)
[2021-04-16] MEDS: PANTOPRAZOLE 40 MG TABLET PO SCH (10:04)
--- NOTE | 2021-04-16 11:43 | P.PN ---
Subjective Progress Note Date: 04/16/21 Principal diagnosis: Dyspnea, cough, COPD, pneumonia On 04/11/2001 patient seen in follow-up on medical surgical floor. He is awake and alert, he states he still wheezy and congested, but overall feeling better, he is coughing up some foodstuff material, not so much phlegm. He states he is having symptoms of GERD, and in his cup where he has been spitting up, it appears that possibly bringing up undigested food. No complaints of chest discomfort, he is currently on 2-3 L with pulse ox of 90%, his been afebrile. Hemodynamically has been stable. His blood culture has shown no growth, his sputum is showing presumptive staph aureus. D service is following, and patient 's current antibiotic coverage includes Unasyn and Flagyl, patient remains on IV steroids Solu-Medrol 60 mg every 6 hours. He is on nebulized bronchodilators. he states he was supposed to go for dilation of esophageal stricture sometime this week with Dr. Vegas on an outpatient basis. He is tolerating a heart healthy diet. Today's evaluation on 04/16/2021 patient seen in follow-up on [facility] [place] unit. He is breathing comfortably, he is on room air, his pulse ox is 91-94%, hemodynamically stable, no fever or chills. His most recent chest x-ray yesterday showed chronic changes without new acute pulmonary process. No suspicious focal airspace opacity, no pneumothorax or pleural effusions. Patient remains on vancomycin for MRSA pneumonia, he is also on IV steroids 40 mg every 8 hours. He is on breathing treatments, he still bringing up some thick colored yellow phlegm. Lung sounds today reveal equal air entry bilaterally, with minimal rhonchi. No compressive chest pain, no hemoptysis, patient states he is passing food without any problems, he is passing bowel movements, no nausea vomiting or diarrhea. His lab 7 reviewed, his white count is 15.3, hemoglobin is 13, sodium is 131, potassium is 4.2, chloride is 93, BUN is 36, and is 0.97. Objective - Vital Signs Vital signs: Vital Signs Temp 97.9 F 04/16/21 07:20 Pulse 80 04/16/21 11:30 Resp 16 04/16/21 07:20 BP 167/84 04/16/21 07:20 Pulse Ox 91 L 04/16/21 07:20 Intake & Output 04/15/21 04/16/21 04/16/21 18:59 06:59 18:59 Intake Total 1200 240 Output Total 400 900 Balance 800 -660 Intake: Oral 1200 240 Output: Urine 400 900 Other: Voiding Method Urinal Urinal # Voids 2 - Exam GENERAL EXAM: Alert, very pleasant, significant a 75-year-old white male, on room air with a pulse ox of 93% comfortable in no apparent distress. HEAD: Normocephalic/atraumatic. EYES: Normal reaction of pupils, equal size. Conjunctiva pink, sclera white. NOSE: Clear with pink turbinates. THROAT: No erythema or exudates. NECK: No masses, no JVD, no thyroid enlargement, no adenopathy. CHEST: No chest wall deformity. Symmetrical expansion. LUNGS: Equal air entry with minimal diffuse rhonchi CVS: Regular rate and rhythm, normal S1 and S2, no gallops, no murmurs, no rubs ABDOMEN: Soft, nontender. No hepatosplenomegaly, normal bowel sounds, no guarding or rigidity. EXTREMITIES: No clubbing, no edema, no cyanosis, 2+ pulses and upper and lower extremities. MUSCULOSKELETAL: Muscle strength and tone normal. SPINE: No scoliosis or deformity SKIN: No rashes CENTRAL NERVOUS SYSTEM: Alert and oriented -3. No focal deficits, tone is normal in all 4 extremities. PSYCHIATRIC: Alert and oriented -3. Appropriate affect. Intact judgment and insight. - Labs CBC & Chem 7: 04/15/21 09:32 04/15/21 09:32 Labs: Microbiology - Last 24 Hours (Table) 04/09/21 18:24 Blood Culture - Final Blood No Growth after 144 hours Assessment and Plan Plan: Assessment: #1. Multifocal pneumonia, related to MRSA. Chest x-ray showing COPD with inter stitial densities in focal right upper lobe airspace disease, possibly related to aspiration pneumonia. Legionella urine antigen negative #2. Acute hypoxic respiratory failure related to the above, resolved #3. Abdominal cramping, nausea vomiting and diarrhea, C. diff was negative. Improved, Abdominal x-ray showed no evidence of free air or bowel obstruction. There may be a mild regional ileus or enteritis present. CT of the abdomen and pelvis suggested possible infectious or inflammatory gastroenteritis #4. Coronary artery disease, status post bypass grafting #5. History of bilateral carotid artery stenosis, status post stenting #6. History of tonsillar/pharyngeal cancer, status post radical neck dissection followed by chemoradiation in 2005 #7. Esophageal stricture, and patient required esophageal dilation on outpatient basis #8. History of bilateral apical consolidation seen on the CT of the chest likely related to post radiation changes #9. Hypothyroidism #10. Former smoker Plan: patient has remained stable, Continues to improve currently off the Oxygen most recent CXR shows clearing of the pneumonia No fever or chills Stable for discharge from pulmonary perspective Complete outpatient course of Zyvox Outpatient follow up with Dr. Castaneda in 7 days Patient is asking whether he can have the esophageal dilation on this coming Sunday on 04/20/[address] Byers, and Dr. Castaneda said it would be OK I performed a history & physical examination of the patient and discussed their management with my nurse practitioner, Jaycee Trotter. I reviewed the nurse practitioner's note and agree with the documented findings and plan of care. Lung sounds are positive for diffuse wheezes throughout the lung olsen. The findings and the impression was discussed with the patient. I attest to the documentation by the nurse practitioner. Time with Patient: Less than 30
[2021-04-16 12:01] LABS: Basophils # (A) 0.03 X 10*3/uL (0.00-0.10); Basophils % (A) 0.2 %; Eosinophils # (A) 0.01 X 10*3/uL (0.04-0.35); Eosinophils % (A) 0.1 %; HGB 11.7 g/dL (13.0-17.0); Lymphocytes # (A) 0.84 X 10*3/uL (0.90-5.00); Lymphocytes % (A) 4.9 %; MCH 27.3 pg (27.0-32.0); MCHC 32.5 g/dL (32.0-37.0); MCV 84.1 fL (80.0-97.0); Mean Platelet Volume 9.5 fL (9.5-12.2); Monocytes # (A) 0.79 X 10*3/uL (0.20-1.00); Monocytes % (A) 4.6 %; Neutrophils % (A) 88.9 %; Platelet Count 326 X 10*3/uL (140-440); RBC 4.28 X 10*6/uL (4.40-5.60); WBC 17.29 X 10*3/uL (4.50-10.00)
[2021-04-16 13:24] VITALS: PULSE 65
--- NOTE | 2021-04-16 21:31 | P.PN ---
Progress Note - Text Progress Note Date: 04/16/21 REASON FOR FOLLOWUP: MRSA pneumonia. INTERVAL HISTORY: The patient remains to be afebrile. The patient is breathing comfortably. The patient denies chest pain or shortness of breath. Occasional dry cough. No abdominal pain or diarrhea. PHYSICAL EXAMINATION: Blood pressure is 160/70, pulse of 90, temperature 97.7. He is 96% on room air. GENERAL DESCRIPTION: General description is an elderly male up in the bed in no distress. RESPIRATORY SYSTEM: Unlabored breathing. Decreased intensity of breath sounds. No wheeze. HEART: S1, S2. Regular rate and rhythm. ABDOMEN: Soft. No tenderness. LABS: reviewed DIAGNOSTIC IMPRESSION AND PLAN: Patient with MRSA pneumonia, improved on vancomycin Continue with vancomycin inpatient. To finish therapy with oral Zyvox 600mg bid x 10 days and close outpatient followup.
[2021-04-16 22:40] LABS: Albumin 3.7 g/dL (3.80-4.90); Albumin/Globulin Ratio 1.85 (1.60-3.17); Anion Gap 11.4 mmol/L (4.00-12.00); Calcium 8.9 mg/dL (8.7-10.3); Carbon Dioxide 26.6 mmol/L (21.6-31.8); Non-African American GFR(CKD) 73.3 (60.0-200.0); Potassium 4.3 mmol/L (3.5-5.5); Total Bilirubin 0.4 mg/dL (0.3-1.2); Total Protein 5.7 g/dL (6.2-8.2)
--- NOTE | 2021-04-20 12:46 | P.DS ---
Providers Date of admission: 04/11/21 10:43 Expected date of discharge: 04/16/21 Attending physician: Kale Fischer Consults: 04/09/21 14:07 Consult Physician Routine Consulting Provider: Alex Gunderson Consult Reason/Comments: gastroenteritis, pneumonia Do you want consulting provider notified?: Yes 04/10/21 09:19 Consult Physician Routine Consulting Provider: Jordy Mercer Consult Reason/Comments: pneumonia Do you want consulting provider notified?: Yes Primary care physician: Kalejesus Fischer [facility] Course: Discharge diagnosis Severe abdominal pain cause is unclear with abnormal computed tomography scan of the abdomen and pelvis. Per GI services continue IV antibiotics tender plans for EGD the patient will need to be off Plavix for 5 days. MRSA pneumonia. Sputum culture positive for resumption staph aureus , Radha. Infectious disease and pulmonary services are following, currently maintained on IV vancomycin Leukocytosis, could be related to infectious process in the abdomen or in the lungs Will monitor closely continue with IV antibiotic at this time Acute COPD exacerbation Previous history of range she had cancer with history of surgery, chemotherapy and radiation therapy in 2005 Underlying history of hypertension Underlying history of hyperlipidemia Underlying history of chronic kidney disease stage II Hospital course Tenzin Burgos, is a 75-year-old male who presented to [facility] emergency room with a chief complaint of fever nausea and severe abdominal pain He was evaluated in the emergency room vital examination on presentation revealed a temperature of 100.5 pulse 106 respiration 18 blood pressure 120/68 pulse ox 96% on 2 L nasal cannula and 92% on room air Laboratory data reveals a white blood count of 16.0 hemoglobin 12.7 platelet count 256 sodium 138 potassium 4.2 chloride 97 BUN 30 creatinine 1.38 Testing in the emergency room revealed computed tomography scan of the abdomen and pelvis revealed prominent fluid-filled small bowel loops throughout the abdomen suggestive of inflammatory or infectious gastroenteritis, CT also revealed groundglass nodularity suggestive of atypical pneumonia aspiration or interstitial pneumonitis Patient was admitted to medical floor for further evaluation and treatment Past medical history is significant for 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, history of hypertention, history of hyperlipidemia, history of coronary artery disease, history of COPD, history of gastroesophageal reflux disease. On 04/10/2021 Patient was seen and examined on the medical floor, he is alert and oriented x 3 in no distress, he is complaining of abdominal pain and occasional cough otherwise he denies any complaints there is no fever or chills no headache or dizziness no chest pain no shortness of breath no palpitation no nausea or vomiting, no diarrhea no blood in the stools no burning with urination no frequency or urgency and no hematuria, there is no weakness or numbness in any of the extremities no change in vision speech or gait. On 04/11/2021 Patient was seen and examined on the medical floor, he is alert and oriented x 3 in no distress, patient is still complaining of abdominal discomfort otherwise he denies any complaints there is no fever or chills no headache or dizziness no chest pain no shortness of breath no palpitation no cough no nausea or vomiting no abdominal pain no diarrhea no blood in the stools no burning with urination no frequency or urgency and no hematuria, there is no weakness or numbness in any of the extremities no change in vision speech or gait. On 04/12/2021 Patient was seen and examined on the medical floor, he is alert and oriented x 3 in no distress, he denies any complaints there is no fever or chills no headache or dizziness no chest pain no shortness of breath no palpitation no cough no nausea or vomiting no abdominal pain no diarrhea no blood in the stools no burning with urination no frequency or urgency and no hematuria, there is no weakness or numbness in any of the extremities no change in vision speech or gait. GI and pulmonary recommendation review continue IV antibiotics at this time will follow in a.m. On 04/13/2021 patient's alert and oriented 3 patient reports significant improvement with shortness of breath and chest pain. Patient remains on IV Solu-Medrol Unasyn and vancomycin. Repeat chest x-ray completed showing increased patchy density in the right upper lobe. Persistent but improved den sity in the left lower lobe medially. Pulmonary, infectious disease and GI services are following. Patient states improvement with abdominal pain denies nausea vomiting or diarrhea. Patient reports he had normal bowel movement last night. On 04/14/2021 Patient was seen and examined on the medical floor, he is alert and oriented x 3 in no distress, he is still complaining of cough otherwise he denies any complaints there is no fever or chills no headache or dizziness no chest pain no shortness of breath no palpitation no nausea or vomiting no abdominal pain no diarrhea no blood in the stools no burning with urination no frequency or urgency and no hematuria, there is no weakness or numbness in any of the extremities no change in vision speech or gait. On 04/15/2021 patient's alert and oriented 3. Patient's sputum positive for MRSA. Prescription sent for Zyvox per infectious disease discussed her case management will check on coverage. Repeat chest x-ray has been ordered per p ulmonary. Patient remains on IV vancomycin while inpatient. At this time patient denies chest pain. Patient still having productive cough. Patient denies any nausea vomiting or diarrhea. Patient denies any urinary burning or frequency On 04/16/2021 patient's alert and oriented 3. Patient will be DC'd on side effects. Patient reports he feels significantly improved. At this time patient denies chest pain or shortness breath. Patient denies chest vomiting or diarrhea. Patient denies any urinary burning or frequency. Patient will be DC'd on Zyvox per ID recommendation Patient Condition at Discharge: Stable Plan - Discharge Summary Discharge Rx Participant: No New Discharge Prescriptions: New Linezolid [Zyvox] 600 mg PO Q12H #20 tab Continue RX: Fluticasone Nasal [place] [Flonase Nasal [place]] 1 spray EA NOSTRIL BID PRN PRN Reason: Allergy Symptoms RX: Levothyroxine Sodium [Synthroid] 125 mcg PO DAILY RX: Aspirin 81 mg PO DAILY #30 RX: Metoprolol Tartrate [Lopressor] 25 mg PO BID PRN PRN Reason: Hypertension RX: Clopidogrel [Plavix] 75 mg PO DAILY RX: Midodrine [ProAmatine] 5 mg PO TID PRN PRN Reason: ORTHOSTATIC HYPOTENSION RX: Docusate [Colace] 100 mg PO BID RX: Finasteride [Proscar] 5 mg PO DAILY RX: Montelukast [Singulair] 10 mg PO HS RX: Pantoprazole [Protonix] 40 mg PO BID RX: Atorvastatin [Lipitor] 20 mg PO DAILY RX: Albuterol Inhaler [Ventolin Hfa Inhaler] 1 - 2 puff INHALATION RT-Q6H PRN PRN Reason: Shortness Of Breath RX: amLODIPine [Norvasc] 5 mg PO DAILY PRN PRN Reason: Hypertension RX: predniSONE 5 mg PO DAILY RX: Ipratropium-Albuterol Nebulize [Duoneb 0.5 mg-3 mg/3 ml Soln] 1 vial INHALATION RT-QID PRN PRN Reason: Shortness Of Breath Discharge Medication List RX: Fluticasone Nasal [place] [Flonase Nasal [place]] 1 spray EA NOSTRIL BID PRN 02/12/17 [History] RX: Levothyroxine Sodium [Synthroid] 125 mcg PO DAILY 02/12/17 [History] RX: Aspirin 81 mg PO DAILY #30 03/21/17 [Rx] RX: Metoprolol Tartrate [Lopressor] 25 mg PO BID PRN 07/02/17 [History] RX: Clopidogrel [Plavix] 75 mg PO DAILY 09/10/18 [History] RX: Midodrine [ProAmatine] 5 mg PO TID PRN 04/04/19 [History] RX: Albuterol Inhaler [Ventolin Hfa Inhaler] 1 - 2 puff INHALATION RT-Q6H PRN 04/09/21 [History] RX: Atorvastatin [Lipitor] 20 mg PO DAILY 04/09/21 [History] RX: Docusate [Colace] 100 mg PO BID 04/09/21 [History] RX: Finasteride [Proscar] 5 mg PO DAILY 04/09/21 [History] RX: Ipratropium-Albuterol Nebulize [Duoneb 0.5 mg-3 mg/3 ml Soln] 1 vial INHALATION RT-QID PRN 04/09/21 [History] RX: Montelukast [Singulair] 10 mg PO HS 04/09/21 [History] RX: Pantoprazole [Protonix] 40 mg PO BID 04/09/21 [History] RX: amLODIPine [Norvasc] 5 mg PO DAILY PRN 04/09/21 [History] RX: predniSONE 5 mg PO DAILY 04/09/21 [History] Linezolid [Zyvox] 600 mg PO Q12H #20 tab 04/14/21 [Rx] Follow up Appointment(s)/Referral(s): Josh Mendoza MD [STAFF PHYSICIAN] - 1 Week Kale Fischer MD [Primary Care Provider] - 1-2 days Patient Instructions/Handouts: Pneumonitis (DC), MRSA (Methicillin-Resistant Staphylococcus Aureus) (DC) Discharge Disposition: HOME SELF-CARE
== END 2021-04-16 13:21 | disposition home or self-care (01) | DRG 177 ==
LOC: EC 07:41 → 6NMEDSUR 10:56 → OBSVTOIN 04-11 10:43
PROVIDERS: ADMIT Internal Medicine; ATTEND Internal Medicine
DX: J15.212 Pneumonia due to Methicillin resistant Staphylococcus aureus (principal); J96.01 Acute respiratory failure with hypoxia; E43 Unspecified severe protein-calorie malnutrition; K56.7 Ileus, unspecified; J44.0 Chronic obstructive pulmonary disease with (acute) lower respiratory infection; J44.1 Chronic obstructive pulmonary disease with (acute) exacerbation; Z68.1 Body mass index [BMI] 19.9 or less, adult; J69.0 Pneumonitis due to inhalation of food and vomit; K22.2 Esophageal obstruction; E78.5 Hyperlipidemia, unspecified; I12.9 Hypertensive chronic kidney disease with stage 1 through stage 4 chronic kidney disease, or unspecified chronic kidney disease; N18.2 Chronic kidney disease, stage 2 (mild); I65.23 Occlusion and stenosis of bilateral carotid arteries; I25.10 Atherosclerotic heart disease of native coronary artery without angina pectoris; K21.9 Gastro-esophageal reflux disease without esophagitis; E03.9 Hypothyroidism, unspecified; K57.90 Diverticulosis of intestine, part unspecified, without perforation or abscess without bleeding; K59.00 Constipation, unspecified; K52.9 Noninfective gastroenteritis and colitis, unspecified; R47.02 Dysphasia; R13.10 Dysphagia, unspecified; D64.9 Anemia, unspecified; H91.90 Unspecified hearing loss, unspecified ear; Z79.02 Long term (current) use of antithrombotics/antiplatelets; Z79.82 Long term (current) use of aspirin; Z79.890 Hormone replacement therapy; Z79.899 Other long term (current) drug therapy; Z85.818 Personal history of malignant neoplasm of other sites of lip, oral cavity, and pharynx; Z92.21 Personal history of antineoplastic chemotherapy; Z92.3 Personal history of irradiation; Z86.73 Personal history of transient ischemic attack (TIA), and cerebral infarction without residual deficits; Z87.01 Personal history of pneumonia (recurrent); Z95.828 Presence of other vascular implants and grafts; Z95.1 Presence of aortocoronary bypass graft; Z87.19 Personal history of other diseases of the digestive system; Z87.09 Personal history of other diseases of the respiratory system; Z87.891 Personal history of nicotine dependence; Z87.39 Personal history of other diseases of the musculoskeletal system and connective tissue; Z97.4 Presence of external hearing-aid; Z98.890 Other specified postprocedural states; Z71.3 Dietary counseling and surveillance; Z80.1 Family history of malignant neoplasm of trachea, bronchus and lung; Z82.49 Family history of ischemic heart disease and other diseases of the circulatory system
CPT/HCPCS: 36415; 71045; 71046; 74022; 74177; 80053; 80202; 81003; 82565; 83605; 83690; 83735; 84145; 84484; 85025; 85610; 85730; 86850; 86900; 86901; 87040; 87070; 87077; 87186; 87205; 87449; 87635; 93005; 94640; 94760; 96365; 96374; 96375; 99285

== ENCOUNTER 2021-04-19 13:18 | Inpatient (IN) | payer OTHER, MEDICARE ==
[2021-04-19] MEDS ORDERED: IPRATROPIUM-ALBUTEROL 3 ML NEB INHALATION STA (13:31)
[2021-04-19] MEDS ORDERED: LORazepam 2 MG/ML INJ IV STA (13:34)
--- NOTE | 2021-04-19 13:45 | ED ---
General Adult HPI - General Source: patient, RN notes reviewed, old records reviewed Mode of arrival: ambulatory Limitations: no limitations <Osmin Conrad - Last Filed: 04/19/21 15:09> <Jordy Parada - Last Filed: 04/19/21 16:13> - General Chief complaint: Shortness of Breath Stated complaint: Diff Breathing Time Seen by Provider: 04/19/21 13:30 - History of Present Illness Initial comments: This is a 75-year-old male who presents emergency Department with a past medical history of COPD and recently diagnosed pneumonia. Patient was sent home with oral antibiotics. Patient comes in today because this morning he started having much more difficult time breathing. Patient states she's had a cold vaccine was tested negative last admitted to the emergency department. Patient has a history of COPD and smoking many years ago but not recently. Patient denies any chest pain or palpitations. Patient denies any lightheadedness dizziness. Patient denies abdominal pain. Patient denies nausea vomiting diarrhea. Patient denies any leg swelling or edema patient denies any calf tenderness. (Osmin Conrad) The patient is currently on BiPAP and has a difficult time giving history. Family is present. They relate that he was discharged from the hospital 3 days ago after being admitted for pneumonia. He apparently has been fairly weak since he has been home. Today he developed difficulty in breathing. Pulse oxygenation was apparently 75% upon arrival. He has been on home medications. No other complaints or modifying factors. (Jordy Parada) - Related Data Home Medications Medication Instructions Recorded Confirmed Fluticasone Nasal [place] [Flonase 1 spray EA NOSTRIL BID PRN 02/12/17 04/09/21 Nasal [place]] Levothyroxine Sodium [Synthroid] 125 mcg PO DAILY 02/12/17 04/09/21 Metoprolol Tartrate [Lopressor] 25 mg PO BID PRN 07/02/17 04/09/21 Clopidogrel [Plavix] 75 mg PO DAILY 09/10/18 04/09/21 Midodrine [ProAmatine] 5 mg PO TID PRN 04/04/19 04/09/21 Albuterol Inhaler [Ventolin Hfa 1 - 2 puff INHALATION RT-Q6H PRN 04/09/21 04/09/21 Inhaler] Atorvastatin [Lipitor] 20 mg PO DAILY 04/09/21 04/09/21 Docusate [Colace] 100 mg PO BID 04/09/21 04/09/21 Finasteride [Proscar] 5 mg PO DAILY 04/09/21 04/09/21 Ipratropium-Albuterol Nebulize 1 vial INHALATION RT-QID PRN 04/09/21 04/09/21 [Duoneb 0.5 mg-3 mg/3 ml Soln] Montelukast [Singulair] 10 mg PO HS 04/09/21 04/09/21 Pantoprazole [Protonix] 40 mg PO BID 04/09/21 04/09/21 amLODIPine [Norvasc] 5 mg PO DAILY PRN 04/09/21 04/09/21 predniSONE 5 mg PO DAILY 04/09/21 04/09/21 Previous Rx's Medication Instructions Recorded Aspirin 81 mg PO DAILY #30 03/21/17 Linezolid [Zyvox] 600 mg PO Q12H #20 tab 04/14/21 Allergies Allergy/AdvReac Type Severity Reaction Status Date / Time No Known Allergies Allergy Verified 04/09/21 07:46 Review of Systems ROS Other: All systems not noted in ROS Statement are negative. <Osmin Conrad - Last Filed: 04/19/21 15:09> ROS Other: All systems not noted in ROS Statement are negative. <Jordy Parada - Last Filed: 04/19/21 16:13> ROS Statement: Those systems with pertinent positive or pertinent negative responses have been documented in the HPI. 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 Current lung congestion, coughing, wheezing ongoing. History of Any Multi-Drug Resistant Organisms: None Reported Past Surgical History: Coronary Bypass/CABG, Heart Catheterization, Hernia Repair, Orthopedic Surgery Additional Past Surgical History / Comment(s): 02/2017 CABG-4 vessel, angiograms, R internal caratid stented, 2005 radical neck dissection for pharyngeal cancer, L/R inguinal hernia repair, 3 sinus surgeries with benign polypectomy, colonoscopy, bilateral rotator cuff repairs. Past Anesthesia/Blood Transfusion Reactions: No Reported Reaction, Motion Sickness Past Psychological History: No Psychological Hx Reported Smoking Status: Former smoker Past Alcohol Use History: Rare Past Drug Use History: Marijuana - Past Family History Father Family Medical History: Cancer Additional Family Medical History / Comment(s): Father had lung cancer. He was a smoker. Mother Family Medical History: Congestive Heart Failure (CHF) Sister(s) Family Medical History: Cancer <Osmin Conrad - Last Filed: 04/19/21 15:09> General Exam Limitations: no limitations <Osmin Conrad - Last Filed: 04/19/21 15:09> Respiratory exam: Present: normal lung sounds bilaterally, other (Patient is currently on BiPAP and oxygenating well. No adventitial breath sounds currently noted. No accessory muscle use.) <Jordy Parada - Last Filed: 04/19/21 16:13> - General Exam Comments Initial Comments: GENERAL: Patient is well-developed and well-nourished. Patient is nontoxic and well- hydrated and is in moderate distress. ENT: Neck is soft and supple. No significant lymphadenopathy is noted. Oropharynx is clear. Moist mucous membranes. Neck has full range of motion without eliciting any pain. EYES: The sclera were anicteric and conjunctiva were pink and moist. Extraocular movements were intact and pupils were equal round and reactive to light. Eyelids were unremarkable. PULMONARY: Patient has rhonchi throughout with expiratory wheezing CARDIOVASCULAR: There is a regular rate and rhythm without any murmurs gallops or rubs. ABDOMEN: Soft and nontender with normal bowel sounds. SKIN: Skin is clear with no lesions or rashes and otherwise unremarkable. NEUROLOGIC: Patient is alert and oriented x3. Cranial nerves II through XII are grossly intact. Motor and sensory are also intact. Normal speech, volume and content. Symmetrical smile. MUSCULOSKELETAL: Normal extremities with adequate strength and full range of motion. No lower extremity swelling or edema. No calf tenderness. LYMPHATICS: No significant lymphadenopathy is noted PSYCHIATRIC: Normal psychiatric evaluation. (Osmin Conrad) Course Vital Signs 04/19/21 04/19/21 04/19/21 13:29 13:32 13:46 Temperature 98.2 F Pulse Rate 122 H 137 H Respiratory 18 32 H 38 H Rate Blood Pressure 186/107 O2 Sat by Pulse 75 L Oximetry 04/19/21 04/19/21 04/19/21 13:57 14:30 15:00 Temperature Pulse Rate 133 H 108 H 108 H Respiratory 56 H 20 18 Rate Blood Pressure 169/97 164/88 O2 Sat by Pulse 98 98 Oximetry Medical Decision Making <Osmin Conrad - Last Filed: 04/19/21 15:09> - Lab Data Result diagrams: 04/19/21 15:35 04/19/21 15:35 <Jordy Parada - Last Filed: 04/19/21 16:13> - Medical Decision Making Dr. Amaya will be taking over the care of this patient at 3 PM (Osmin Conrad) The patient was seen and examined. All diagnostics were reviewed. The chest x- ray does show evidence of bilateral pneumonia. This appears to be worse than previous x-ray this past week. The possibility of fluid overload and COPD sooner possible as well per radiology report. The laboratory does show evidence of hyponatremia as well as elevated CO2. The patient also has some hypochloremia. Some labs are currently pending as well. She was started on Zosyn and vancomycin also was added. He is doing well on recheck and is oxygen is decreased on BiPAP. He is tolerating the BiPAP well. It is felt as though he will require admission to the hospital. The case was discussed with and he is agreeable with admission. Pulmonology also will be consult ed. 30 minutes of critical care time is utilized and the treatment of the patient. Family was updated on multiple occasions. (Jordy Parada) - Lab Data Lab Results 04/19/21 04/19/21 04/19/21 Range/Units 13:38 15:35 15:35 WBC 19.7 H (3.8-10.6) k/uL RBC 4.56 (4.30-5.90) m/uL Hgb 12.6 L (13.0-17.5) gm/dL Hct 38.8 L (39.0-53.0) % MCV 85.3 (80.0-100.0) fL MCH 27.7 (25.0-35.0) pg MCHC 32.5 (31.0-37.0) g/dL RDW 14.5 (11.5-15.5) % Plt Count 414 (150-450) k/uL MPV 6.5 Neutrophils % 94 % Lymphocytes % 2 % Monocytes % 2 % Eosinophils % 1 % Basophils % 0 % Neutrophils # 18.6 H (1.3-7.7) k/uL Lymphocytes # 0.4 L (1.0-4.8) k/uL Monocytes # 0.3 (0-1.0) k/uL Eosinophils # 0.2 (0-0.7) k/uL Basophils # 0.0 (0-0.2) k/uL PT 11.5 (9.0-12.0) sec INR 1.1 (<1.2) APTT 23.6 (22.0-30.0) sec D-Dimer 0.58 (<0.60) mg/L FEU Sodium (137-145) mmol/L Potassium (3.5-5.1) mmol/L Chloride (98-107) mmol/L Carbon Dioxide (22-30) mmol/L Anion Gap mmol/L BUN (9-20) mg/dL Creatinine (0.66-1.25) mg/dL Est GFR (CKD-EPI)AfAm (>60 ml/min/1.73 sqM) Est GFR (CKD-EPI)NonAf (>60 ml/min/1.73 sqM) Glucose (74-99) mg/dL Calcium (8.4-10.2) mg/dL Magnesium (1.6-2.3) mg/dL Total Bilirubin (0.2-1.3) mg/dL AST (17-59) U/L ALT (4-49) U/L Alkaline Phosphatase (38-126) U/L Total Protein (6.3-8.2) g/dL Albumin (3.5-5.0) g/dL Coronavirus (PCR) Not Detected (Not Detectd) 04/19/21 Range/Units 15:35 WBC (3.8-10.6) k/uL RBC (4.30-5.90) m/uL Hgb (13.0-17.5) gm/dL Hct (39.0-53.0) % MCV (80.0-100.0) fL MCH (25.0-35.0) pg MCHC (31.0-37.0) g/dL RDW (11.5-15.5) % Plt Count (150-450) k/uL MPV Neutrophils % % Lymphocytes % % Monocytes % % Eosinophils % % Basophils % % Neutrophils # (1.3-7.7) k/uL Lymphocytes # (1.0-4.8) k/uL Monocytes # (0-1.0) k/uL Eosinophils # (0-0.7) k/uL Basophils # (0-0.2) k/uL PT (9.0-12.0) sec INR (<1.2) APTT (22.0-30.0) sec D-Dimer (<0.60) mg/L FEU Sodium 128 L (137-145) mmol/L Potassium 4.1 (3.5-5.1) mmol/L Chloride 87 L (98-107) mmol/L Carbon Dioxide 32 H (22-30) mmol/L Anion Gap 9 mmol/L BUN 38 H (9-20) mg/dL Creatinine 1.24 (0.66-1.25) mg/dL Est GFR (CKD-EPI)AfAm 66 (>60 ml/min/1.73 sqM) Est GFR (CKD-EPI)NonAf 57 (>60 ml/min/1.73 sqM) Glucose 99 (74-99) mg/dL Calcium 9.5 (8.4-10.2) mg/dL Magnesium 1.8 (1.6-2.3) mg/dL Total Bilirubin 0.8 (0.2-1.3) mg/dL AST 60 H (17-59) U/L ALT 43 (4-49) U/L Alkaline Phosphatase 87 (38-126) U/L Total Protein 6.2 L (6.3-8.2) g/dL Albumin 3.5 (3.5-5.0) g/dL Coronavirus (PCR) (Not Detectd) Disposition <Osmin Conrad - Last Filed: 04/19/21 15:09> Is patient prescribed a controlled substance at d/c from ED?: No Time of Disposition: 16:13 Decision Date: 04/19/21 Decision Time: 16:13 <Jordy Parada - Last Filed: 04/19/21 16:13> Clinical Impression: Pneumonia, Weakness, Acute respiratory failure, Hyponatremia, COPD (chronic obstructive pulmonary disease), Hypertension, Hypochloremia, Leukocytosis Disposition: ADMITTED IP TO THIS HOSP Condition: Serious Referrals: Josh Mendoza MD [STAFF PHYSICIAN] - 1-2 days
--- NOTE | 2021-04-19 15:02 | XR ---
EXAMINATION TYPE: XR chest 1V DATE OF EXAM: 04/19/2021 COMPARISON: 04/15/2021 HISTORY: Shortness of breath TECHNIQUE: Single frontal view of the chest is obtained. FINDINGS: Increasing bilateral lower lobe infiltrates and interstitial pattern. Biapical pleural thi ckening. Heart size normal. Hypertrophic and degenerative change of the spine. Diffuse osteopenia. At herosclerotic change aorta. Postsurgical changes seen. Hyperinflation suggests COPD. IMPRESSION: 1. Bilateral infiltrates correlate for pneumonia otherwise consider COPD with superimposed pulmonary edema.
[2021-04-19] MEDS ORDERED: PIPERACILLIN-TAZOBACTAM 3.375 GM in SODIUM CHLORIDE 0.9% 100 ML IVPB STA (15:10)
[2021-04-19 15:53] LABS: Basophils % (A) 0 %; Eosinophils # (A) 0.2 k/uL (0-0.7); Eosinophils % (A) 1 %; HCT 38.8 % (39.0-53.0); HGB 12.6 gm/dL (13.0-17.5); Lymphocytes # (A) 0.4 k/uL (1.0-4.8); Lymphocytes % (A) 2 %; MCH 27.7 pg (25.0-35.0); MCHC 32.5 g/dL (31.0-37.0); MCV 85.3 fL (80.0-100.0); Mean Platelet Volume 6.5; Monocytes # (A) 0.3 k/uL (0-1.0); Monocytes % (A) 2 %; Neutrophils # (A) 18.6 k/uL (1.3-7.7); Neutrophils % (A) 94 %; Platelet Count 414 k/uL (150-450); RBC 4.56 m/uL (4.30-5.90); RDW 14.5 % (11.5-15.5); WBC 19.7 k/uL (3.8-10.6)
[2021-04-19 15:58] LABS: Albumin 3.5 g/dL (3.5-5.0); Calcium 9.5 mg/dL (8.4-10.2); Magnesium 1.8 mg/dL (1.6-2.3); Potassium 4.1 mmol/L (3.5-5.1); Total Bilirubin 0.8 mg/dL (0.2-1.3); Total Protein 6.2 g/dL (6.3-8.2)
[2021-04-19 16:03] LABS: INR 1.1 (<1.2); Partial Thromboplastin Time 23.6 sec (22.0-30.0); Prothrombin Time 11.5 sec (9.0-12.0)
[2021-04-19] MEDS ORDERED: VANCOMYCIN 1,500 MG in SODIUM CHLORIDE 0.9% 250 ML IVPB STA (16:05)
[2021-04-19] MEDS ORDERED: VANCOMYCIN IV PER PHARMACY 1 EACH MISC MISCELLANE PRN (16:05)
[2021-04-19] MEDS ORDERED: methylPREDNISolone SOD SUCCI 125 MG/2 ML VIAL IV STA (16:14)
[2021-04-19] MEDS ORDERED: PNEUMONIA PROTOCOL UTILIZED 1 EACH MISC PO PRN (16:15)
[2021-04-19] MEDS ORDERED: METOPROLOL TARTRATE 25 MG TAB PO PRN (16:58)
[2021-04-19] MEDS ORDERED: amLODIPine 5 MG TAB PO PRN (16:58)
[2021-04-19] MEDS ORDERED: MIDODRINE 5 MG TAB PO PRN (16:58)
[2021-04-19] MEDS ORDERED: FLUTICASONE 50MCG/SPRAY NASAL 16GM EA NOSTRIL PRN (16:58)
[2021-04-19] MEDS ORDERED: IPRATROPIUM-ALBUTEROL 3 ML NEB INHALATION PRN (16:58)
--- NOTE | 2021-04-19 17:13 | P.CNPUL ---
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 Patient is a former smoker. He was recently hospitalized right lung pneumonia, related to MRSA. Patient was treated with vancomycin, he was improving, his chest x-ray prior to discharge was showing clearing of the right upper lobe airspace disease. He was sent home 10 day course of Zyvox 600 mg by mouth twice daily. he is usually not oxygen dependent at baseline. He has frequent episodes of regurgitation of his food related to esophageal narrowing. He was supposed to undergo esophageal dilation this coming Sunday on 04/20/2021. His daughter brought him back for evaluation today on 04/19/2021 for worsening shortness of breath, and hypoxia. Patient denied any fever, denied any chest pain, no hemoptysis, no leg swelling. Patient was significantly short of breath and she was placed on BiPAP support. Also admits to being very weak. His pulse ox was only 75% upon arrival. His chest x-ray shows bilateral infiltrates. He was placed on BiPAP support with pressures of 12 and 6 and FiO2 of 80% and his pulse ox is 99%. He is tachypneic, his tachycardia, but has been afebrile since admission. His been started on Zosyn and vancomycin. He is on nebulized bronchodilators and IV steroids. His labs have been reviewed showing white blood cell, of 19.7, hemoglobin of 12.6, d-dimer was negative at 0.58, sodium was 128, potassium is 4.1, chloride was 87, CO2 is 32, BUN was 38, creatinine is 1.24, lactic acid is 2.2, AST 60, ALT is 43, alkaline phosphatase is 87, troponin is less than 0.012, proBNP was within normal limits at 151. Tested for COVID-19 and was found to be negative. Review of Systems All systems: negative Constitutional: Reports fatigue, Reports weakness, Denies chills, Denies fever Eyes: denies blurred vision, denies pain Ears, nose, mouth and throat: Denies headache, Denies sore throat Cardiovascular: Denies chest pain, Denies shortness of breath Respiratory: Reports congestion, Reports dyspnea, Denies cough Gastrointestinal: Reports vomiting, Denies abdominal pain, Denies diarrhea, Denies nausea Musculoskeletal: Denies myalgias Integumentary: Denies pruritus, Denies rash Neurological: Denies numbness, Denies weakness Psychiatric: Denies anxiety, Denies depression Endocrine: Denies fatigue, Denies weight change Past Medical History Past Medical History: Coronary Artery Disease (CAD), Cancer, Chest Pain / Angina, COPD, CVA/TIA, GERD/Reflux, Hearing Disorder / Deafness, Hyperlipidemia, Hypertension, Pneumonia, Renal Disease, Syncope, Thyroid Disorder, Vascular Disorder Additional Past Medical History / Comment(s): 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 Current lung congestion, coughing, wheezing ongoing. History of Any Multi-Drug Resistant Organisms: None Reported Past Surgical History: Coronary Bypass/CABG, Heart Catheterization, Hernia Repair, Orthopedic Surgery Additional Past Surgical History / Comment(s): 02/2017 CABG-4 vessel, angiograms, R internal caratid stented, 2005 radical neck dissection for pharyngeal cancer, L/R inguinal hernia repair, 3 sinus surgeries with benign polypectomy, colonoscopy, bilateral rotator cuff repairs. Past Anesthesia/Blood Transfusion Reactions: No Reported Reaction, Motion Sickness Past Psychological History: No Psychological Hx Reported Smoking Status: Former smoker Past Alcohol Use History: Rare Past Drug Use History: Marijuana - Past Family History Father Family Medical History: Cancer Additional Family Medical History / Comment(s): Father had lung cancer. He was a smoker. Mother Family Medical History: Congestive Heart Failure (CHF) Sister(s) Family Medical History: Cancer Medications and Allergies Home Medications Medication Instructions Recorded Confirmed Type Fluticasone Nasal [place] [Flonase 1 spray EA NOSTRIL BID PRN 02/12/17 04/09/21 History Nasal [place]] Levothyroxine Sodium [Synthroid] 125 mcg PO DAILY 02/12/17 04/09/21 History Aspirin 81 mg PO DAILY #30 03/21/17 04/09/21 Rx Metoprolol Tartrate [Lopressor] 25 mg PO BID PRN 07/02/17 04/09/21 History Clopidogrel [Plavix] 75 mg PO DAILY 09/10/18 04/09/21 History Midodrine [ProAmatine] 5 mg PO TID PRN 04/04/19 04/09/21 History Albuterol Inhaler [Ventolin Hfa 1 - 2 puff INHALATION RT-Q6H PRN 04/09/21 04/09/21 History Inhaler] Atorvastatin [Lipitor] 20 mg PO DAILY 04/09/21 04/09/21 History Docusate [Colace] 100 mg PO BID 04/09/21 04/09/21 History Finasteride [Proscar] 5 mg PO DAILY 04/09/21 04/09/21 History Ipratropium-Albuterol Nebulize 1 vial INHALATION RT-QID PRN 04/09/21 04/09/21 History [Duoneb 0.5 mg-3 mg/3 ml Soln] Montelukast [Singulair] 10 mg PO HS 04/09/21 04/09/21 History Pantoprazole [Protonix] 40 mg PO BID 04/09/21 04/09/21 History amLODIPine [Norvasc] 5 mg PO DAILY PRN 04/09/21 04/09/21 History predniSONE 5 mg PO DAILY 04/09/21 04/09/21 History Linezolid [Zyvox] 600 mg PO Q12H #20 tab 04/14/21 Rx Allergies Allergy/AdvReac Type Severity Reaction Status Date / Time No Known Allergies Allergy Verified 04/19/21 16:43 Physical Exam Vitals: Vital Signs Temp Pulse Resp BP Pulse Ox 04/19/21 15:00 108 H 18 164/88 98 04/19/21 14:30 108 H 20 169/97 98 04/19/21 13:57 133 H 56 H 04/19/21 13:46 137 H 38 H 04/19/21 13:32 32 H 04/19/21 13:29 98.2 F 122 H 18 186/107 75 L Intake and Output 04/19/21 04/19/21 04/19/21 06:59 14:59 22:59 Other: Weight 79.379 kg GENERAL EXAM: Alert, very pleasant, 75-year-old white male, seen in the emergency department on BiPAP support currently with pressures of 12/6 and FiO2 of 80% with a pulse ox of 99%, tachypneic, tachycardic, but able to give short simple answers, comfortable in no apparent distress. HEAD: Normocephalic/atraumatic. EYES: Normal reaction of pupils, equal size. Conjunctiva pink, sclera white. NOSE: Clear with pink turbinates. THROAT: No erythema or exudates. NECK: No masses, no JVD, no thyroid enlargement, no adenopathy. CHEST: No chest wall deformity. Symmetrical expansion. LUNGS: Equal air entry with diffuse rhonchi CVS: Regular rate and rhythm, normal S1 and S2, no gallops, no murmurs, no rubs ABDOMEN: Soft, nontender. No hepatosplenomegaly, normal bowel sounds, no guarding or rigidity. EXTREMITIES: No clubbing, no edema, no cyanosis, 2+ pulses and upper and lower extremities. MUSCULOSKELETAL: Muscle strength and tone normal. SPINE: No scoliosis or deformity SKIN: No rashes CENTRAL NERVOUS SYSTEM: Alert and oriented -3. No focal deficits, tone is normal in all 4 extremities. PSYCHIATRIC: Alert and oriented -3. Appropriate affect. Intact judgment and insight. Results - Laboratory Findings CBC and BMP: 04/19/21 15:35 04/19/21 15:35 PT/INR, D-dimer PT 11.5 sec (9.0-12.0) 04/19/21 15:35 INR 1.1 (<1.2) 04/19/21 15:35 D-Dimer 0.58 mg/L FEU (<0.60) 04/19/21 15:35 Abnormal lab findings: Abnormal Labs 04/19/21 04/19/21 04/19/21 15:35 15:35 15:35 WBC 19.7 H Hgb 12.6 L Hct 38.8 L Neutrophils # 18.6 H Lymphocytes # 0.4 L Sodium 128 L Chloride 87 L Carbon Dioxide 32 H BUN 38 H Plasma Lactic Acid [place] 2.2 H* AST 60 H Total Protein 6.2 L - Diagnostic Findings Chest x-ray: report reviewed, image reviewed Assessment and Plan Plan: Assessment: #1. Acute hypoxic respiratory failure related to recurrent aspiration pneumonia. Most recent sputum culture was positive for MRSA. Currently covered with Zosyn and vancomycin. COVID-19 was negative #2. Recent hospitalization for right upper lobe pneumonia related to aspiration and MRSA pneumonia. Discharge home on 04/16/2021 on 10 day course of Zyvox #3. Esophageal stricture, patient has frequent episodes of food regurgitation. Patient is scheduled for esophageal dilation on 04/20/2021 on an outpatient basis #4. GERD/reflux #5. Previous history of tonsillar/pharyngeal cancer, status post radical neck dissection followed by chemoradiation in 2005 #6. History of coronary artery disease status post bypass grafting #7. History of bilateral carotid artery stenosis status post stenting #8. History of bilateral apical consolidation seen on the CT of the chest, related to postradiation changes #9. Hypothyroidism #10. Former smoker Plan: Continue BiPAP support Weaning FiO2 as tolerated Continue vancomycin, continue Zosyn Continue IV steroids and nebulized bronchodilators Send sputum and blood cultures We'll continue to follow his clinical course Patient states he is okay with intubation and placement on mechanical ventilator if his condition deteriorates Maintain aspiration precautions Keep nothing by mouth while on BiPAP Follow-up chest x-ray tomorrow We'll continue to follow I performed a history & physical examination of the patient and discussed their management with my nurse practitioner, Jaycee Trotter. I reviewed the nurse practitioner's note and agree with the documented findings and plan of care. Lung sounds are positive for diffuse wheezes throughout the lung olsen. The findings and the impression was discussed with the patient. I attest to the documentation by the nurse practitioner. Time with Patient: Greater than 30
[2021-04-19] MEDS: ENOXAPARIN 40 MG/0.4 ML SYRINGE SQ SCH (17:17)
[2021-04-19] MEDS ORDERED: PANTOPRAZOLE 40 MG TABLET PO SCH (17:30)
[2021-04-19] MEDS: methylPREDNISolone SOD SUCCI 125 MG/2 ML VIAL IV SCH ×2 (18:41→23:29)
[2021-04-19] MEDS: IPRATROPIUM-ALBUTEROL 3 ML NEB INHALATION PRN (19:35)
[2021-04-19] MEDS ORDERED: ACETAMINOPHEN IV (For NPO) 1,000 MG in EMPTY BAG 1 BAG IVPB PRN (20:07)
[2021-04-19] MEDS: MONTELUKAST 10 MG TAB PO SCH (20:30)
[2021-04-19] MEDS: PANTOPRAZOLE 40 MG/10 ML VIAL IVP SCH (20:30)
[2021-04-19] MEDS: LINEZOLID 600 MG TAB PO SCH (20:30)
[2021-04-19] MEDS: DOCUSATE 100 MG CAP PO SCH (20:30)
[2021-04-19] MEDS: NYSTATIN 100,000 UNIT/ML SUSP 500,000 UNIT/5 ML CUP PO SCH ×2 (20:48→22:08)
[2021-04-19] MEDS: SODIUM CHLORIDE 0.9% 1,000 ML IV SCH (20:49)
[2021-04-19] MEDS: PIPERACILLIN-TAZOBACTAM 3.375 GM in SODIUM CHLORIDE 0.9% 100 ML IVPB SCH (23:29)
[2021-04-20] MEDS: LEVOTHYROXINE 125 MCG TAB PO SCH (07:00)
[2021-04-20] MEDS: SODIUM CHLORIDE 0.9% 1,000 ML IV SCH ×2 (07:01→21:32)
--- NOTE | 2021-04-20 07:17 | XR ---
EXAMINATION TYPE: XR chest 2V DATE OF EXAM: 04/20/2021 COMPARISON: 04/19/2021 HISTORY: Shortness of breath TECHNIQUE: Frontal and lateral views of the chest are obtained. FINDINGS: Scattered senescent parenchymal changes noted. Hyperinflation compatible with COPD. Perihilar and basilar infiltrates persist although there is interval improvement. Continued follow-up is advised. Heart size is stable. Mediastinal structures are stable and grossly unremarkable. No evidence for hilar prominence. Degenerative changes dorsal spine. IMPRESSION: 1. Perihilar and basilar infiltrates persist although there is interval improvement. Continued follow -up is advised.
[2021-04-20] MEDS ORDERED: VANCOMYCIN 1,500 MG in SODIUM CHLORIDE 0.9% 250 ML IVPB SCH (08:00)
[2021-04-20 08:01] LABS: Basophils % (A) 0 %; Eosinophils % (A) 0 %; HCT 38.7 % (39.0-53.0); HGB 12.3 gm/dL (13.0-17.5); Lymphocytes # (A) 0.5 k/uL (1.0-4.8); Lymphocytes % (A) 4 %; MCH 27.5 pg (25.0-35.0); MCHC 31.7 g/dL (31.0-37.0); MCV 86.7 fL (80.0-100.0); Mean Platelet Volume 6.9; Monocytes # (A) 0.2 k/uL (0-1.0); Monocytes % (A) 2 %; Neutrophils # (A) 13.1 k/uL (1.3-7.7); Neutrophils % (A) 94 %; Platelet Count 399 k/uL (150-450); RBC 4.46 m/uL (4.30-5.90); RDW 14.5 % (11.5-15.5); WBC 13.9 k/uL (3.8-10.6)
[2021-04-20 08:17] LABS: Total Protein 5.7 g/dL (6.3-8.2)
[2021-04-20 08:19] LABS: Calcium 9.2 mg/dL (8.4-10.2); Total Bilirubin 0.5 mg/dL (0.2-1.3)
[2021-04-20] MEDS ORDERED: CLOPIDOGREL 75 MG TAB PO SCH (09:00)
[2021-04-20] MEDS: IPRATROPIUM-ALBUTEROL 3 ML NEB INHALATION PRN ×2 (09:07→20:50)
[2021-04-20] MEDS: NYSTATIN 100,000 UNIT/ML SUSP 500,000 UNIT/5 ML CUP PO SCH ×4 (09:30→21:28)
[2021-04-20] MEDS: PANTOPRAZOLE 40 MG/10 ML VIAL IVP SCH ×2 (09:31→21:25)
[2021-04-20] MEDS: ENOXAPARIN 40 MG/0.4 ML SYRINGE SQ SCH (09:31)
[2021-04-20] MEDS: methylPREDNISolone SOD SUCCI 125 MG/2 ML VIAL IV SCH ×4 (09:31→21:23)
[2021-04-20] MEDS: PIPERACILLIN-TAZOBACTAM 3.375 GM in SODIUM CHLORIDE 0.9% 100 ML IVPB SCH ×2 (09:32→16:53)
--- NOTE | 2021-04-20 11:57 | P.HPIM ---
History of Present Illness H&P Date: 04/20/21 Chief Complaint: Shortness of breath difficulty in breathing This is a 75-year-old male patient who presented to the hospital with complaints of increased shortness of breath. Patient was recently admitted and discharged on 04/18/2021 for right lung pneumonia with MRSA. Patient was discharged home on Zyvox and he reports that he was taking medication as prescribed. upon discharge he was feeling well and then quickly declined throughout the next day upon exam he was found to have hypoxia with a pulse ox of 75%. Patient was placed on BiPAP and started on Zosyn and vancomycin. 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 Chest x-ray completed showing bilateral infiltrate correlate for pneumonia otherwise conside r COPD with superimposed pulmonary edema. COVID test was negative. At this time patient is resting comfortably in bed. Patient reports significant improvement from yesterday. Patient is currently on 4 L nasal cannula. Pulmonary services are following. Infectious disease services also consulted. Patient remains on IV antibiotics repeat chest x-ray has been ordered. Patient denies chest pain. Patient denies nausea vomiting or diarrhea. Patient denies any urinary burning or frequency. 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 Current lung congestion, coughing, wheezing ongoing. History of Any Multi-Drug Resistant Organisms: None Reported Past Surgical History: Coronary Bypass/CABG, Heart Catheterization, Hernia Repair, Orthopedic Surgery Additional Past Surgical History / Comment(s): 02/2017 CABG-4 vessel, angiograms, R internal caratid stented, 2005 radical neck dissection for pharyngeal cancer, L/R inguinal hernia repair, 3 sinus surgeries with benign polypectomy, colonosco py, bilateral rotator cuff repairs. Past Anesthesia/Blood Transfusion Reactions: No Reported Reaction, Motion Sickness Past Psychological History: No Psychological Hx Reported Additional Psychological History / Comment(s): Pt resides with his spouse. He is independent. He is a [employer] . He was stationed in [place]. Smoking Status: Former smoker Past Alcohol Use History: Rare Additional Past Alcohol Use History / Comment(s): Pt started smoking occasional cigars/pipe in 1964 and quit in 1984. Past Drug Use History: Marijuana - Past Family History Father Family Medical History: Cancer Additional Family Medical History / Comment(s): Father had lung cancer. He was a smoker. Mother Family Medical History: Congestive Heart Failure (CHF) Sister(s) Family Medical History: Cancer Medications and Allergies Home Medications Medication Instructions Recorded Confirmed Type Fluticasone Nasal [place] [Flonase 1 spray EA NOSTRIL BID PRN 02/12/17 04/19/21 History Nasal [place]] Levothyroxine Sodium [Synthroid] 125 mcg PO DAILY 02/12/17 04/19/21 History Aspirin 81 mg PO DAILY #30 03/21/17 04/19/21 Rx Metoprolol Tartrate [Lopressor] 25 mg PO BID PRN 07/02/17 04/19/21 History Clopidogrel [Plavix] 75 mg PO DAILY 09/10/18 04/19/21 History Midodrine [ProAmatine] 5 mg PO TID PRN 04/04/19 04/19/21 History Albuterol Inhaler [Ventolin Hfa 1 - 2 puff INHALATION RT-Q6H PRN 04/09/21 04/19/21 History Inhaler] Atorvastatin [Lipitor] 20 mg PO DAILY 04/09/21 04/19/21 History Docusate [Colace] 100 mg PO BID 04/09/21 04/19/21 History Finasteride [Proscar] 5 mg PO DAILY 04/09/21 04/19/21 History Ipratropium-Albuterol Nebulize 1 vial INHALATION RT-QID PRN 04/09/21 04/19/21 History [Duoneb 0.5 mg-3 mg/3 ml Soln] Montelukast [Singulair] 10 mg PO HS 04/09/21 04/19/21 History Pantoprazole [Protonix] 40 mg PO BID 04/09/21 04/19/21 History amLODIPine [Norvasc] 5 mg PO DAILY PRN 04/09/21 04/19/21 History predniSONE 5 mg PO DAILY 04/09/21 04/19/21 History Linezolid [Zyvox] 600 mg PO Q12H #20 tab 04/14/21 04/19/21 Rx Allergies Allergy/AdvReac Type Severity Reaction Status Date / Time No Known Allergies Allergy Verified 04/19/21 16:43 Physical Exam Vitals: Vital Signs Temp Pulse Pulse Resp BP BP Pulse Ox 04/20/21 09:15 86 04/20/21 09:08 96 04/20/21 09:07 80 04/20/21 08:00 87 16 133/80 95 04/20/21 07:05 79 18 92 L 04/20/21 04:29 97 04/20/21 04:17 97.8 F 70 22 150/80 99 04/19/21 23:41 97.5 F L 76 23 137/85 97 04/19/21 20:25 98.9 F 92 24 121/80 94 L 04/19/21 19:49 90 04/19/21 19:40 94 04/19/21 18:36 100.7 F H 98 20 116/71 93 L 04/19/21 15:00 108 H 18 164/88 98 04/19/21 14:30 108 H 20 169/97 98 04/19/21 13:57 133 H 56 H 04/19/21 13:46 137 H 38 H 04/19/21 13:32 32 H 04/19/21 13:29 98.2 F 122 H 18 186/107 75 L Intake and Output 04/19/21 04/20/21 04/20/21 22:59 06:59 14:59 Intake Total 1000 Output Total 425 Balance 575 Intake: Intake, IV Titration 1000 Amount Piperacillin-Tazobactam 3 100 .375 gm In Sodium Chloride 0.9% 100 ml @ 25 mls/hr IVPB Q8HR [facility] Rx# :[id number] Sodium Chloride 0.9% 1, 900 000 ml @ 100 mls/hr IV . Q10H [facility] Rx#:[id number] Output: Urine 425 Other: Voiding Method Urinal Urinal Urinal Weight 79.379 kg 59 kg Head normocephalic Neck supple Lungs diminished bilaterally with rhonchi Heart regular rate and rhythm S1-S2, no rub or gallop Abdomen is soft nontender nondistended positive bowel sounds no hepatosplenomegaly Extremities no edema Neuro alert and orientated to 3 Results CBC & Chem 7: 04/20/21 07:37 04/20/21 07:37 Labs: Abnormal Lab Results - Last 24 Hours (Table) 04/19/21 04/19/21 04/19/21 Range/Units 15:35 15:35 15:35 WBC 19.7 H (3.8-10.6) k/uL Hgb 12.6 L (13.0-17.5) gm/dL Hct 38.8 L (39.0-53.0) % Neutrophils # 18.6 H (1.3-7.7) k/uL Lymphocytes # 0.4 L (1.0-4.8) k/uL Sodium 128 L (137-145) mmol/L Chloride 87 L (98-107) mmol/L Carbon Dioxide 32 H (22-30) mmol/L BUN 38 H (9-20) mg/dL Glucose (74-99) mg/dL Plasma Lactic Acid [place] 2.2 H* (0.7-2.0) mmol/L AST 60 H (17-59) U/L Total Protein 6.2 L (6.3-8.2) g/dL Albumin (3.5-5.0) g/dL 04/20/21 04/20/21 Range/Units 07:37 07:37 WBC 13.9 H (3.8-10.6) k/uL Hgb 12.3 L (13.0-17.5) gm/dL Hct 38.7 L (39.0-53.0) % Neutrophils # 13.1 H (1.3-7.7) k/uL Lymphocytes # 0.5 L (1.0-4.8) k/uL Sodium 132 L (137-145) mmol/L Chloride 94 L (98-107) mmol/L Carbon Dioxide 31 H (22-30) mmol/L BUN 44 H (9-20) mg/dL Glucose 155 H (74-99) mg/dL Plasma Lactic Acid [place] (0.7-2.0) mmol/L AST (17-59) U/L Total Protein 5.7 L (6.3-8.2) g/dL Albumin 3.0 L (3.5-5.0) g/dL Thrombosis Risk Factor Assmnt - Choose All That Apply Each Factor Represents 1 point: Serious lung disease incl. pneumonia (< 1month) Each Risk Factor Represents 3 Points: Age 75 years or older Thrombosis Risk Factor Assessment Total Risk Factor Score: 4 Thrombosis Risk Factor Assessment Level: Moderate Risk Assessment and Plan Assessment: 1. Shortness of breath with acute hypoxic respiratory failure secondary to pneumonia. Patient was recently treated for MRSA in his sputum. At this time continue current IV antibiotics. pulmonary service is consulted. Infectious disease service is consulted. 2. History of COPD patient maintained on IV steroids 3. 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 History of coronary artery disease status post bypass grafting 5. History of esophageal strictures with frequent episodes of food regurg. 6. History of bilateral apical consolidation seen on CT of chest this is related to postradiation changes per pulmonary 7. History of hypothyroidism 8. History of GERD 9. Ex-smoker. DVT prophylaxis Lovenox. GI prophylaxis Protonix Pulmonary and infectious disease service is consulted Continue IV antibiotics Patient maintained on IV steroids Sputum and blood cultures ordered Time with Patient: Greater than 30 (Greater than 60% of the total time spent in counseling and coordination of care)
[2021-04-20] MEDS: INSULIN ASPART (NovoLOG) 100 UNIT/ML VIAL SQ SCH ×3 (12:43→21:28)
[2021-04-20 12:45] LABS: Glucose,Whole Blood 138 mg/dL (75-99)
--- NOTE | 2021-04-20 13:36 | P.PN ---
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 Patient is a former smoker. He was recently hospitalized right lung pneumonia, related to MRSA. Patient was treated with vancomycin, he was improving, his chest x-ray prior to discharge was showing clearing of the right upper lobe airspace disease. He was sent home 10 day course of Zyvox 600 mg by mouth twice daily. he is usually not oxygen dependent at baseline. He has frequent episodes of regurgitation of his food related to esophageal narrowing. He was supposed to undergo esophageal dilation this coming Sunday on 04/20/2021. His daughter brought him back for evaluation today on 04/19/2021 for worsening shortness of breath, and hypoxia. Patient denied any fever, denied any chest pain, no hemoptysis, no leg swelling. Patient was significantly short of breath and she was placed on BiPAP support. Also admits to being very weak. His pulse ox was only 75% upon arrival. His chest x-ray shows bilateral infiltrates. He was placed on BiPAP support with pressures of 12 and 6 and FiO2 of 80% and his pulse ox is 99%. He is tachypneic, his tachycardia, but has been afebrile since admission. His been started on Zosyn and vancomycin. He is on nebulized bronchodilators and IV steroids. His labs have been reviewed showing white blood cell, of 19.7, hemoglobin of 12.6, d-dimer was negative at 0.58, sodium was 128, potassium is 4.1, chloride was 87, CO2 is 32, BUN was 38, creatinine is 1.24, lactic acid is 2.2, AST 60, ALT is 43, alkaline phosphatase is 87, troponin is less than 0.012, proBNP was within normal limits at 151. Tested for COVID-19 and was found to be negative. On today's evaluation on 04/20/2021 patient is breathing much easier, he is currently off BiPAP support and on 4 L of oxygen. He is breathing comfortably, lung sounds reveal some scattered rhonchi, he has been afebrile overnight, overall breathing much easier, he was maintained on nothing by mouth overnight, he is awaiting speech evaluation. He is currently on a combination of Zosyn and Zyvox. He is bringing up some thick yellow sputum. No hemoptysis, no chest discomfort. This chest x-ray shows slight improvement in the appearance of bilateral infiltrates. White count is improving on today's labs. Objective - Vital Signs Vital signs: Vital Signs Temp 97.8 F 04/20/21 04:17 Pulse 83 04/20/21 12:00 Resp 16 04/20/21 12:00 BP 137/82 04/20/21 12:00 Pulse Ox 95 04/20/21 12:00 Intake & Output 04/19/21 04/20/21 04/20/21 18:59 06:59 18:59 Intake Total 1000 Output Total 425 Balance 575 Weight 79.379 kg 59 kg Intake: Intake, IV Titration 1000 Amount Piperacillin-Tazobactam 3 100 .375 gm In Sodium Chloride 0.9% 100 ml @ 25 mls/hr IVPB Q8HR [facility] Rx# :[id number] Sodium Chloride 0.9% 1, 900 000 ml @ 100 mls/hr IV . Q10H [facility] Rx#:[id number] Output: Urine 425 Other: Voiding Method Urinal Urinal - Exam GENERAL EXAM: Alert, very pleasant, 75-year-old white male, currently breathing comfortably, on 4 L of oxygen with a pulse ox of 96%, comfortable in no apparent distress. HEAD: Normocephalic/atraumatic. EYES: Normal reaction of pupils, equal size. Conjunctiva pink, sclera white. NOSE: Clear with pink turbinates. THROAT: No erythema or exudates. NECK: No masses, no JVD, no thyroid enlargement, no adenopathy. CHEST: No chest wall deformity. Symmetrical expansion. LUNGS: Equal air entry with diffuse rhonchi CVS: Regular rate and rhythm, normal S1 and S2, no gallops, no murmurs, no rubs ABDOMEN: Soft, nontender. No hepatosplenomegaly, normal bowel sounds, no g uarding or rigidity. EXTREMITIES: No clubbing, no edema, no cyanosis, 2+ pulses and upper and lower extremities. MUSCULOSKELETAL: Muscle strength and tone normal. SPINE: No scoliosis or deformity SKIN: No rashes CENTRAL NERVOUS SYSTEM: Alert and oriented -3. No focal deficits, tone is normal in all 4 extremities. PSYCHIATRIC: Alert and oriented -3. Appropriate affect. Intact judgment and insight. - Labs CBC & Chem 7: 04/20/21 07:37 04/20/21 07:37 Labs: Abnormal Lab Results - Last 24 Hours (Table) 04/19/21 04/19/21 04/19/21 Range/Units 15:35 15:35 15:35 WBC 19.7 H (3.8-10.6) k/uL Hgb 12.6 L (13.0-17.5) gm/dL Hct 38.8 L (39.0-53.0) % Neutrophils # 18.6 H (1.3-7.7) k/uL Lymphocytes # 0.4 L (1.0-4.8) k/uL Sodium 128 L (137-145) mmol/L Chloride 87 L (98-107) mmol/L Carbon Dioxide 32 H (22-30) mmol/L BUN 38 H (9-20) mg/dL Glucose (74-99) mg/dL POC Glucose (mg/dL) (75-99) mg/dL Plasma Lactic Acid Zurdo 2.2 H* (0.7-2.0) mmol/L AST 60 H (17-59) U/L Total Protein 6.2 L (6.3-8.2) g/dL Albumin (3.5-5.0) g/dL 04/20/21 04/20/21 04/20/21 Range/Units 07:37 07:37 12:43 WBC 13.9 H (3.8-10.6) k/uL Hgb 12.3 L (13.0-17.5) gm/dL Hct 38.7 L (39.0-53.0) % Neutrophils # 13.1 H (1.3-7.7) k/uL Lymphocytes # 0.5 L (1.0-4.8) k/uL Sodium 132 L (137-145) mmol/L Chloride 94 L (98-107) mmol/L Carbon Dioxide 31 H (22-30) mmol/L BUN 44 H (9-20) mg/dL Glucose 155 H (74-99) mg/dL POC Glucose (mg/dL) 138 H (75-99) mg/dL Plasma Lactic Acid Zur[place] (0.7-2.0) mmol/L AST (17-59) U/L Total Protein 5.7 L (6.3-8.2) g/dL Albumin 3.0 L (3.5-5.0) g/dL Assessment and Plan Plan: Assessment: #1. Acute hypoxic respiratory failure related to recurrent aspiration pneumonia. Most recent sputum culture was positive for MRSA. Currently covered with Zosyn and vancomycin. COVID-19 was negative #2. Recent hospitalization for right upper lobe pneumonia related to aspiration and MRSA pneumonia. Discharge home on 04/16/2021 on 10 day course of Zyvox #3. Esophageal stricture, patient has frequent episodes of food regurgitation. Patient is scheduled for esophageal dilation on 04/20/2021 on an outpatient basis #4. GERD/reflux #5. Previous history of tonsillar/pharyngeal cancer, status post radical neck dissection followed by chemoradiation in 2005 #6. History of coronary artery disease status post bypass grafting #7. History of bilateral carotid artery stenosis status post stenting #8. History of bilateral apical consolidation seen on the CT of the chest, related to postradiation changes #9. Hypothyroidism #10. Former smoker Plan: Continue current medical treatment Continue IV steroids, continue Zosyn and Zyvox Senda sputum for culture Breathing is improved on today's exam Continue weaning FiO2 as tolerated Did not have any fever or chills overnight Today's chest x-ray has been reviewed showing slight improvement in appearance of bilateral infiltrates Consult GI service for possibility of EGD history of esophageal stricture Consults paced therapy for speech evaluation and obtain modified barium swallow Started oral feedings according to speech and GI service recommendations I performed a history & physical examination of the patient and discussed their management with my nurse practitioner, Jaycee Trotter. I reviewed the nurse practitioner's note and agree with the documented findings and plan of care. Lung sounds are positive for diffuse wheezes throughout the lung olsen. The findings and the impression was discussed with the patient. I attest to the documentation by the nurse practitioner. Time with Patient: Less than 30
[2021-04-20] MEDS: LINEZOLID 600 MG TAB PO SCH ×2 (13:45→21:28)
[2021-04-20] MEDS: DOCUSATE 100 MG CAP PO SCH ×2 (13:45→21:27)
[2021-04-20] MEDS: FINASTERIDE 5 MG TAB PO SCH (13:57)
[2021-04-20] MEDS: ASPIRIN 81 MG PO SCH (13:57)
[2021-04-20] MEDS: ATORVASTATIN 20 MG TAB PO SCH (13:57)
[2021-04-20 16:49] LABS: Glucose,Whole Blood 157 mg/dL (75-99)
[2021-04-20 20:16] LABS: Glucose,Whole Blood 147 mg/dL (75-99)
[2021-04-20] MEDS: MONTELUKAST 10 MG TAB PO SCH (21:28)
[2021-04-21] MEDS: PIPERACILLIN-TAZOBACTAM 3.375 GM in SODIUM CHLORIDE 0.9% 100 ML IVPB SCH ×4 (00:22→23:51)
[2021-04-21] MEDS: SODIUM CHLORIDE 0.9% 1,000 ML IV SCH ×3 (05:10→21:22)
[2021-04-21 06:12] LABS: Glucose,Whole Blood 152 mg/dL (75-99)
[2021-04-21] MEDS: LEVOTHYROXINE 125 MCG TAB PO SCH (06:46)
[2021-04-21] MEDS: INSULIN ASPART (NovoLOG) 100 UNIT/ML VIAL SQ SCH ×4 (06:46→23:47)
[2021-04-21 07:33] LABS: Basophils % (A) 0 %; Eosinophils % (A) 0 %; HCT 35.8 % (39.0-53.0); HGB 11.8 gm/dL (13.0-17.5); Lymphocytes # (A) 0.5 k/uL (1.0-4.8); Lymphocytes % (A) 3 %; MCH 27.9 pg (25.0-35.0); MCHC 33.1 g/dL (31.0-37.0); MCV 84.4 fL (80.0-100.0); Mean Platelet Volume 6.4; Monocytes # (A) 0.4 k/uL (0-1.0); Monocytes % (A) 2 %; Neutrophils # (A) 17.7 k/uL (1.3-7.7); Neutrophils % (A) 94 %; Platelet Count 416 k/uL (150-450); RBC 4.24 m/uL (4.30-5.90); RDW 14.5 % (11.5-15.5); WBC 18.7 k/uL (3.8-10.6)
[2021-04-21 07:48] LABS: Albumin 2.8 g/dL (3.5-5.0); Calcium 8.9 mg/dL (8.4-10.2); Potassium 4.6 mmol/L (3.5-5.1); Total Bilirubin 0.4 mg/dL (0.2-1.3); Total Protein 5.5 g/dL (6.3-8.2)
--- NOTE | 2021-04-21 07:59 | FL ---
Modified barium swallow. HISTORY: Dysphagia. Modified barium swallow was performed with the department of speech pathology. The patient was prese nted with various consistencies of barium. Aspiration was noted with the family, nectar and honey thick barium consistencies. Full report is to follow from the department of speech pathology. Impression: As above
[2021-04-21] MEDS: methylPREDNISolone SOD SUCCI 125 MG/2 ML VIAL IV SCH ×4 (08:36→23:51)
[2021-04-21] MEDS: ENOXAPARIN 40 MG/0.4 ML SYRINGE SQ SCH ×2 (08:36→08:37)
[2021-04-21] MEDS: PANTOPRAZOLE 40 MG/10 ML VIAL IVP SCH ×2 (08:37→23:51)
[2021-04-21] MEDS: NYSTATIN 100,000 UNIT/ML SUSP 500,000 UNIT/5 ML CUP PO SCH ×4 (08:40→23:52)
[2021-04-21] MEDS: DOCUSATE 100 MG CAP PO SCH ×2 (11:01→23:47)
[2021-04-21] MEDS: ASPIRIN 81 MG PO SCH (11:01)
[2021-04-21] MEDS: ATORVASTATIN 20 MG TAB PO SCH (11:01)
[2021-04-21] MEDS: LINEZOLID 600 MG TAB PO SCH ×2 (11:02→23:47)
[2021-04-21] MEDS: FINASTERIDE 5 MG TAB PO SCH (11:02)
[2021-04-21 11:48] LABS: Glucose,Whole Blood 125 mg/dL (75-99)
--- NOTE | 2021-04-21 12:49 | P.PN ---
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 Patient is a former smoker. He was recently hospitalized right lung pneumonia, related to MRSA. Patient was treated with vancomycin, he was improving, his chest x-ray prior to discharge was showing clearing of the right upper lobe airspace disease. He was sent home 10 day course of Zyvox 600 mg by mouth twice daily. he is usually not oxygen dependent at baseline. He has frequent episodes of regurgitation of his food related to esophageal narrowing. He was supposed to undergo esophageal dilation this coming Sunday on 04/20/2021. His daughter brought him back for evaluation today on 04/19/2021 for worsening shortness of breath, and hypoxia. Patient denied any fever, denied any chest pain, no hemoptysis, no leg swelling. Patient was significantly short of breath and she was placed on BiPAP support. Also admits to being very weak. His pulse ox was only 75% upon arrival. His chest x-ray shows bilateral infiltrates. He was placed on BiPAP support with pressures of 12 and 6 and FiO2 of 80% and his pulse ox is 99%. He is tachypneic, his tachycardia, but has been afebrile since admission. His been started on Zosyn and vancomycin. He is on nebulized bronchodilators and IV steroids. His labs have been reviewed showing white blood cell, of 19.7, hemoglobin of 12.6, d-dimer was negative at 0.58, sodium was 128, potassium is 4.1, chloride was 87, CO2 is 32, BUN was 38, creatinine is 1.24, lactic acid is 2.2, AST 60, ALT is 43, alkaline phosphatase is 87, troponin is less than 0.012, proBNP was within normal limits at 151. Tested for COVID-19 and was found to be negative. On today's evaluation on 04/20/2021 patient is breathing much easier, he is currently off BiPAP support and on 4 L of oxygen. He is breathing comfortably, lung sounds reveal some scattered rhonchi, he has been afebrile overnight, overall breathing much easier, he was maintained on nothing by mouth overnight, he is awaiting speech evaluation. He is currently on a combination of Zosyn and Zyvox. He is bringing up some thick yellow sputum. No hemoptysis, no chest discomfort. This chest x-ray shows slight improvement in the appearance of bilateral infiltrates. White count is improving on today's labs. The patient is seen today 04/21/2021 follow-up on the selective care unit. He is currently sitting up in bed. Awake and alert in no acute distress. He is maintaining O2 saturations in the 90s on 3 L/m per nasal cannula. His been afebrile. Hemodynamically stable. Modified barium swallow today revealed asp iration. He is somewhat frustrated as the PEG tube is not being able to be placed today as he had Plavix. Blood culture reveals no growth. Sputum culture reveals no growth. White count 18.7. Hemoglobin 11.8. Sodium 132. Creatinine 1.03. Glucose 125. He remains on Zosyn and Zyvox. He remains on bronchodilators, IV Solu-Medrol Objective - Vital Signs Vital signs: Vital Signs Temp 97.8 F 04/20/21 20:00 Pulse 82 04/21/21 12:00 Resp 16 04/21/21 12:00 BP 153/73 04/21/21 12:00 Pulse Ox 96 04/21/21 12:00 Intake & Output 04/20/21 04/21/21 04/21/21 18:59 06:59 18:59 Intake Total 2000 Output Total 425 Balance 1575 Weight 59.6 kg Intake: Intake, IV Titration 2000 Amount Piperacillin-Tazobactam 3 300 .375 gm In Sodium Chloride 0.9% 100 ml @ 25 mls/hr IVPB Q8HR [facility] Rx# :[id number] Sodium Chloride 0.9% 1, 1700 000 ml @ 100 mls/hr IV . Q10H [facility] Rx#:[id number] Output: Urine 425 Other: Voiding Method Urinal Urinal # Voids 2 - Exam GENERAL EXAM: Alert, very pleasant, 75-year-old male, currently breathing comfortably, on 3 L of oxygen with a pulse ox of 96%, comfortable in no apparent distress. HEAD: Normocephalic/atraumatic. EYES: Normal reaction of pupils, equal size. Conjunctiva pink, sclera white. NOSE: Clear with pink turbinates. THROAT: No erythema or exudates. NECK: No masses, no JVD, no thyroid enlargement, no adenopathy. CHEST: No chest wall deformity. Symmetrical expansion. LUNGS: Equal air entry with diffuse rhonchi CVS: Regular rate and rhythm, normal S1 and S2, no gallops, no murmurs, no rubs ABDOMEN: Soft, nontender. No hepatosplenomegaly, normal bowel sounds, no guarding or rigidity. EXTREMITIES: No clubbing, no edema, no cyanosis, 2+ pulses and upper and lower extremities. MUSCULOSKELETAL: Muscle strength and tone normal. SPINE: No scoliosis or deformity SKIN: No rashes CENTRAL NERVOUS SYSTEM: Alert and oriented -3. No focal deficits, tone is normal in all 4 extremities. PSYCHIATRIC: Alert and oriented -3. Appropriate affect. Intact judgment and insight. - Labs CBC & Chem 7: 04/21/21 06:59 04/21/21 06:59 Labs: Abnormal Lab Results - Last 24 Hours (Table) 04/20/21 04/20/21 04/20/21 Range/Units 12:43 16:48 20:15 WBC (3.8-10.6) k/uL RBC (4.30-5.90) m/uL Hgb (13.0-17.5) gm/dL Hct (39.0-53.0) % Neutrophils # (1.3-7.7) k/uL Lymphocytes # (1.0-4.8) k/uL Sodium (137-145) mmol/L Chloride (98-107) mmol/L BUN (9-20) mg/dL Glucose (74-99) mg/dL POC Glucose (mg/dL) 138 H 157 H 147 H (75-99) mg/dL Total Protein (6.3-8.2) g/dL Albumin (3.5-5.0) g/dL 04/21/21 04/21/21 04/21/21 Range/Units 06:10 06:59 06:59 WBC 18.7 H (3.8-10.6) k/uL RBC 4.24 L (4.30-5.90) m/uL Hgb 11.8 L (13.0-17.5) gm/dL Hct 35.8 L (39.0-53.0) % Neutrophils # 17.7 H (1.3-7.7) k/uL Lymphocytes # 0.5 L (1.0-4.8) k/uL Sodium 132 L (137-145) mmol/L Chloride 96 L (98-107) mmol/L BUN 41 H (9-20) mg/dL Glucose 142 H (74-99) mg/dL POC Glucose (mg/dL) 152 H (75-99) mg/dL Total Protein 5.5 L (6.3-8.2) g/dL Albumin 2.8 L (3.5-5.0) g/dL 04/21/21 Range/Units 11:46 WBC (3.8-10.6) k/uL RBC (4.30-5.90) m/uL Hgb (13.0-17.5) gm/dL Hct (39.0-53.0) % Neutrophils # (1.3-7.7) k/uL Lymphocytes # (1.0-4.8) k/uL Sodium (137-145) mmol/L Chloride (98-107) mmol/L BUN (9-20) mg/dL Glucose (74-99) mg/dL POC Glucose (mg/dL) 125 H (75-99) mg/dL Total Protein (6.3-8.2) g/dL Albumin (3.5-5.0) g/dL Microbiology - Last 24 Hours (Table) 04/20/21 21:40 Gram Stain - Preliminary Sputum Sputum Culture - Preliminary 04/19/21 14:07 Blood Culture - Preliminary Blood No Growth after 24 hours 04/19/21 14:07 Blood Culture - Preliminary Blood No Growth after 24 hours Assessment and Plan Assessment: 1 Acute hypoxic respiratory failure related to recurrent aspiration pneumonia. Most recent sputum culture was positive for MRSA. Currently covered with Zosyn and vancomycin. COVID-19 was negative 2 Recent hospitalization for right upper lobe pneumonia related to aspiration and MRSA pneumonia. Discharge home on 04/16/2021 on 10 day course of Zyvox 3 Esophageal stricture, patient has frequent episodes of food regurgitation. 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 Castaneda Plan is for PEG tube placement for nutrition Continue bronchodilators, IV Solu-Medrol, antibiotics We will continue to follow I, the cosigning physician, performed a history & physical examination of the patient. Lungs sounds with diffuse rhonchi. Maintaining good O2 saturations in the 90s on 3 L/m per nasal cannula. I discussed the assessment and plan of care with my nurse practitioner, Jolynn Sibley. I attest to the above note as dictated by her.
--- NOTE | 2021-04-21 13:43 | P.CONS ---
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 He has a former smoker. He was recently hospitalized last week for pneumonia related to MRSA. The patient was scheduled to undergo outpatient EGD with dilation yesterday, however the had rescheduled it for next week. The patient was told he had to be off of his Plavix for 5 days prior to any procedures. The states he restarted his Plavix 3 days ago. Last dose of Plavix was yesterday morning. Patient is having difficulty with swallowing and regurgitating. He has been following with speech therapy outpatient and is well-known to them. He underwent a modified barium swallow yesterday showing aspiration with nectar and honey thick barium consistencies. Speech therapist reports silent aspiration, pharyngeal dysphasia and recommends PEG tube placement for nutrition. Recommend patient to be nothing by mouth other than ice chips and small sips of water. The patient and are agreeable to proceed with PEG tube placement. Patient denies any abdominal pain, nausea, does have frequent regurgitation and difficulty with swallowing. He has had very little nutrition in the last few days duration at home. He has had increased weakness and weight loss. He is readmitted for hypoxic respiratory failure related to recurrent aspiration pneumonia. Review of Systems REVIEW OF SYSTEMS: CARDIOPULMONARY: No chest pain, shortness of breath. Gastrointestinal: No abdominal pain. No nausea, frequent regurgitation after eating. Difficulty with swallowing. No hematemesis, coffee-ground emesis. No rectal bleeding, or melena. GENITOURINARY: No dysuria or hematuria. MUSCULOSKELETAL: Reports normal range of motion., Joint pain. SKIN: No rashes. No jaundice. ENDOCRINE: No chills, fevers. No excessive weight gain or loss. No polydipsia or polyuria. PSYCHIATRIC: Unremarkable. NEUROLOGY: No change in mental status. Denies dizziness, headache. ENT: Vision unremarkable. CONSTITUTIONAL: No recent weight loss. No fever, chills, night sweats. Past Medical History Past Medical History: Coronary Artery Disease (CAD), Cancer, Chest Pain / Angina, COPD, CVA/TIA, GERD/Reflux, Hearing Disorder / Deafness, Hyperlipidemia, Hypertension, Pneumonia, Renal Disease, Syncope, Thyroid Disorder, Vascular Disorder Additional Past Medical History / Comment(s): 2005 Tonsil/pharyngeal cancer w/ surgery/chemo/radiation, ongoing dysphagia, bilateral carotid artery disease w/ stent R side, CVA per MRI, CKD stage II, CAD with recent CABG w/ post op anemia requiring blood transfusion, diverticular dx, vertigo when first stands, constipation, hypothyroid, ALUTIIQ beena aides. Current lung congestion, coughing, wheezing ongoing. History of Any Multi-Drug Resistant Organisms: None Reported Past Surgical History: Coronary Bypass/CABG, Heart Catheterization, Hernia Repair, Orthopedic Surgery Additional Past Surgical History / Comment(s): 02/2017 CABG-4 vessel, angiograms, R internal caratid stented, 2005 radical neck dissection for pharyngeal cancer, L/R inguinal hernia repair, 3 sinus surgeries with benign polypectomy, colonoscopy, bilateral rotator cuff repairs. Past Anesthesia/Blood Transfusion Reactions: No Reported Reaction, Motion Sickness Past Psychological History: No Psychological Hx Reported Additional Psychological History / Comment(s): Pt resides with his spouse. He is independent. He is a [employer] . He was stationed in [place]. Smoking Status: Former smoker Past Alcohol Use History: Rare Additional Past Alcohol Use History / Comment(s): Pt started smoking occasional cigars/pipe in 1964 and quit in 1984. Past Drug Use History: Marijuana - Past Family History Father Family Medical History: Cancer Additional Family Medical History / Comment(s): Father had lung cancer. He was a smoker. Mother Family Medical History: Congestive Heart Failure (CHF) Sister(s) Family Medical History: Cancer Medications and Allergies Home Medications Medication Instructions Recorded Confirmed Type Fluticasone Nasal [place] [Flonase 1 spray EA NOSTRIL BID PRN 02/12/17 04/19/21 History Nasal [place]] Levothyroxine Sodium [Synthroid] 125 mcg PO DAILY 02/12/17 04/19/21 History Aspirin 81 mg PO DAILY #30 03/21/17 04/19/21 Rx Metoprolol Tartrate [Lopressor] 25 mg PO BID PRN 07/02/17 04/19/21 History Clopidogrel [Plavix] 75 mg PO DAILY 09/10/18 04/19/21 History Midodrine [ProAmatine] 5 mg PO TID PRN 04/04/19 04/19/21 History Albuterol Inhaler [Ventolin Hfa 1 - 2 puff INHALATION RT-Q6H PRN 04/09/21 04/19/21 History Inhaler] Atorvastatin [Lipitor] 20 mg PO DAILY 04/09/21 04/19/21 History Docusate [Colace] 100 mg PO BID 04/09/21 04/19/21 History Finasteride [Proscar] 5 mg PO DAILY 04/09/21 04/19/21 History Ipratropium-Albuterol Nebulize 1 vial INHALATION RT-QID PRN 04/09/21 04/19/21 History [Duoneb 0.5 mg-3 mg/3 ml Soln] Montelukast [Singulair] 10 mg PO HS 04/09/21 04/19/21 History Pantoprazole [Protonix] 40 mg PO BID 04/09/21 04/19/21 History amLODIPine [Norvasc] 5 mg PO DAILY PRN 04/09/21 04/19/21 History predniSONE 5 mg PO DAILY 04/09/21 04/19/21 History Linezolid [Zyvox] 600 mg PO Q12H #20 tab 04/14/21 04/19/21 Rx Allergies Allergy/AdvReac Type Severity Reaction Status Date / Time No Known Allergies Allergy Verified 04/19/21 16:43 Physical Exam Vitals: Vital Signs Temp Pulse Pulse Resp BP Pulse Ox 04/21/21 08:00 79 16 151/89 100 04/21/21 04:00 68 20 120/64 94 L 04/21/21 02:00 18 04/21/21 00:00 84 18 149/89 93 L 04/20/21 21:00 90 04/20/21 20:50 88 04/20/21 20:00 97.8 F 67 18 163/85 88 L 04/20/21 16:00 90 16 113/68 96 04/20/21 12:00 83 16 137/82 95 Intake and Output 04/20/21 04/21/21 04/21/21 22:59 06:59 14:59 Intake Total 1000 Balance 1000 Intake: Intake, IV Titration 1000 Amount Piperacillin-Tazobactam 3 200 .375 gm In Sodium Chloride 0.9% 100 ml @ 25 mls/hr IVPB Q8HR [facility] Rx# :[id number] Sodium Chloride 0.9% 1, 800 000 ml @ 100 mls/hr IV . Q10H [facility] Rx#:[id number] Other: # Voids 1 2 Weight 59.6 kg General appearance: The patient is alert, oriented, appears in no acute distress. HET: Head is normocephalic and atraumatic. Conjunctiva pink. Sclera anicteric. Neck: Supple without lymphadenopathy. Trachea midline. Heart: S1 S2. Regular rate and rhythm. Lungs: Diffuse rhonchi. Abdomen: Soft, thin, nontender, nondistended with bowel sounds. No guarding or rigidity. Skin: No rashes. No jaundice. Extremities: Normal skin color and turgor. No pedal edema. Neurological: No focal deficits. Alert and oriented 3.. Results CBC & Chem 7: 04/21/21 06:59 04/21/21 06:59 Labs: Abnormal Lab Results - Last 24 Hours (Table) 04/20/21 04/20/21 04/20/21 Range/Units 12:43 16:48 20:15 WBC (3.8-10.6) k/uL RBC (4.30-5.90) m/uL Hgb (13.0-17.5) gm/dL Hct (39.0-53.0) % Neutrophils # (1.3-7.7) k/uL Lymphocytes # (1.0-4.8) k/uL Sodium (137-145) mmol/L Chloride (98-107) mmol/L BUN (9-20) mg/dL Glucose (74-99) mg/dL POC Glucose (mg/dL) 138 H 157 H 147 H (75-99) mg/dL Total Protein (6.3-8.2) g/dL Albumin (3.5-5.0) g/dL 04/21/21 04/21/21 04/21/21 Range/Units 06:10 06:59 06:59 WBC 18.7 H (3.8-10.6) k/uL RBC 4.24 L (4.30-5.90) m/uL Hgb 11.8 L (13.0-17.5) gm/dL Hct 35.8 L (39.0-53.0) % Neutrophils # 17.7 H (1.3-7.7) k/uL Lymphocytes # 0.5 L (1.0-4.8) k/uL Sodium 132 L (137-145) mmol/L Chloride 96 L (98-107) mmol/L BUN 41 H (9-20) mg/dL Glucose 142 H (74-99) mg/dL POC Glucose (mg/dL) 152 H (75-99) mg/dL Total Protein 5.5 L (6.3-8.2) g/dL Albumin 2.8 L (3.5-5.0) g/dL Microbiology - Last 24 Hours (Table) 04/20/21 21:40 Gram Stain - Preliminary Sputum Sputum Culture - Preliminary 04/19/21 14:07 Blood Culture - Preliminary Blood No Growth after 24 hours 04/19/21 14:07 Blood Culture - Preliminary Blood No Growth after 24 hours Assessment and Plan (1) Dysphagia Narrative/Plan: M.D. 5-year-old male who presented to the hospital with increased shortness of breath who was recently admitted last week for pneumonia. He was readmitted with recurrent aspiration pneumonia. Patient has a history of tonsillar cancer status post radical neck dissection, resection and chemoradiation in 2005 with esophageal strictures requiring periodic esophageal dilation. He was scheduled this week for outpatient EGD with dilation however the patient rescheduled for next week. Patient is on Plavix for coronary artery disease and vascular disease status post stenting. He was told he had to be off the medication for 5 days prior to his procedure. When they rescheduled his restarted him on his Plavix 3 days ago. Last dose taken yesterday morning. Speech therapy consult. Patient underwent modified barium swallow that showed aspiration on multiple consistencies, speech therapist discussed that he has pharyngeal dysphagia and has recommended patient to be nothing by mouth with PEG tube placement. Gastroenterology was consult for esophageal strictures and PEG tube placement. Patient has had significant weight loss due to inability to swallow solids and regurgitation of food. Current Visit: No Status: Acute Code(s): R13.10 - DYSPHAGIA, UNSPECIFIED SNOMED Code(s): 91328124 (2) Aspiration pneumonia Current Visit: Yes Status: Acute Code(s): J69.0 - PNEUMONITIS DUE TO INH ALATION OF FOOD AND VOMIT SNOMED Code(s): 940556997 (3) COPD (chronic obstructive pulmonary disease) Current Visit: Yes Status: Acute Code(s): J44.9 - CHRONIC OBSTRUCTIVE PULMO NARY DISEASE, UNSPECIFIED SNOMED Code(s): 31839756 (4) Hypertension Current Visit: Yes Status: Acute Code(s): I10 - ESSENTIAL (PRIMARY) HYPERTENSION SNOMED Code(s): 75341173 (5) History of cancer tonsil Current Visit: No Status: Acute Code(s): Z85.818 - PRSNL HX OF MALIG NEOPLM OF SITE OF LIP, ORAL CAV, & PHARYNX SNOMED Code(s): 24432919390868 Plan: 1. Continue symptomatic and supportive care 2. Nothing by mouth 3. Hold Plavix 4. Protonix 40 mg IV push twice a day 5. Patient will need EGD with PEG tube placement, however recently took Plavix. Will plan for Sunday 6. Discuss with primary regarding nutrional needs, either parental nutrition or NG tube with tube feedings. Thank you for this consultation, we will continue to follow. Dr. Angela Byers I agree with the dictator's note, documented as a scribe by Alison Fam.
[2021-04-21] MEDS: IPRATROPIUM-ALBUTEROL 3 ML NEB INHALATION PRN (16:32)
[2021-04-21 16:56] LABS: Glucose,Whole Blood 110 mg/dL (75-99)
--- NOTE | 2021-04-21 18:22 | P.PN ---
Subjective Progress Note Date: 04/21/21 This is a 75-year-old male patient who presented to the hospital with complaints of increased shortness of breath. Patient was recently admitted and discharged on 04/18/2021 for right lung pneumonia with MRSA. Patient was discharged home on Zyvox and he reports that he was taking medication as prescribed. upon discharge he was feeling well and then quickly declined throughout the next day upon exam he was found to have hypoxia with a pulse ox of 75%. Patient was placed on BiPAP and started on Zosyn and vancomycin. 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 Chest x-ray completed showing bilateral infiltrate correlate for pneumonia otherwise consider COPD with superimposed pulmonary edema. COVID test was negative. At this time patient is resting comfortably in bed. Patient reports significant improvement from yesterday. Patient is currently on 4 L nasal cannula. Pulmonary services are following. Infectious disease services also consulted. Patient remains on IV antibiotics repeat chest x-ray has been ordered. Patient denies chest pain. Patient denies nausea vomiting or diarrhea. Patient denies any urinary burning or frequency. On 04/21/2021 Patient was seen and examined on the medical floor, he is alert and oriented x 3 in no distress, he denies any complaints there is no fever or chills no headache or dizziness no chest pain no shortness of breath no palpitation no cough no nausea or vomiting no abdominal pain no diarrhea no blood in the stools no burning with urination no frequency or urgency and no hematuria, there is no weakness or numbness in any of the extremities no change in vision speech or gait. Patient underwent modified barium swallow preliminary report reveals evidence of aspiration with nectar and honey thick barium consistency, we are still awaiting the formal report. Patient is scheduled for PEG tube for feeding, he is nothing by mouth at this time, will start PPN until PEG tube is ready to be used. Patient has evidence of severe thrush will start IV Diflucan Objective - Vital Signs Vital signs: Vital Signs Temp 97.8 F 04/20/21 20:00 Pulse 68 04/21/21 04:00 Resp 20 04/21/21 04:00 BP 120/64 04/21/21 04:00 Pulse Ox 94 L 04/21/21 04:00 Intake & Output 04/20/21 04/20/21 04/21/21 06:59 18:59 06:59 Intake Total 1999 Output Total 425 Balance 1575 Weight 59 kg 59.6 kg Intake: Intake, IV Titration 2000 Amount Piperacillin-Tazobactam 3 300 .375 gm In Sodium Chloride 0.9% 100 ml @ 25 mls/hr IVPB Q8HR [facility] Rx# :[id number] Sodium Chloride 0.9% 1, 1700 000 ml @ 100 mls/hr IV . Q10H [facility] Rx#:[id number] Output: Urine 425 Other: Voiding Method Urinal Urinal # Voids 2 - Exam In general patient is alert and oriented x 3 in no distress HEENT head normocephalic and atraumatic Neck is supple no JVD no goiter no lymphadenopathy no carotid bruit Chest examination reveals diminished lung sounds bilaterally with scattered rhonchi Cardiac exam reveals regular heart sounds S1 and S2 no gallops no murmurs Abdomen is soft nontender no organomegaly with normal bowel sounds Extremity exam reveals no edema no cyanosis or clubbing Neurological examination reveals no gross focal deficits - Labs CBC & Chem 7: 04/21/21 06:59 04/21/21 06:59 Labs: Abnormal Lab Results - Last 24 Hours (Table) 04/20/21 04/20/21 04/20/21 Range/Units 07:37 07:37 12:43 WBC 13.9 H (3.8-10.6) k/uL Hgb 12.3 L (13.0-17.5) gm/dL Hct 38.7 L (39.0-53.0) % Neutrophils # 13.1 H (1.3-7.7) k/uL Lymphocytes # 0.5 L (1.0-4.8) k/uL Sodium 132 L (137-145) mmol/L Chloride 94 L (98-107) mmol/L Carbon Dioxide 31 H (22-30) mmol/L BUN 44 H (9-20) mg/dL Glucose 155 H (74-99) mg/dL POC Glucose (mg/dL) 138 H (75-99) mg/dL Total Protein 5.7 L (6.3-8.2) g/dL Albumin 3.0 L (3.5-5.0) g/dL 04/20/21 04/20/21 04/21/21 Range/Units 16:48 20:15 06:10 WBC (3.8-10.6) k/uL Hgb (13.0-17.5) gm/dL Hct (39.0-53.0) % Neutrophils # (1.3-7.7) k/uL Lymphocytes # (1.0-4.8) k/uL Sodium (137-145) mmol/L Chloride (98-107) mmol/L Carbon Dioxide (22-30) mmol/L BUN (9-20) mg/dL Glucose (74-99) mg/dL POC Glucose (mg/dL) 157 H 147 H 152 H (75-99) mg/dL Total Protein (6.3-8.2) g/dL Albumin (3.5-5.0) g/dL Microbiology - Last 24 Hours (Table) 04/20/21 21:40 Sputum Culture - Preliminary Sputum 04/19/21 14:07 Blood Culture - Preliminary Blood No Growth after 24 hours 04/19/21 14:07 Blood Culture - Preliminary Blood No Growth after 24 hours Assessment and Plan Assessment: 1. Shortness of breath with acute hypoxic respiratory failure secondary to pneumonia. Patient was recently treated for MRSA in his sputum. At this time continue current IV antibiotics. pulmonary service is consulted. Infectious disease service is consulted. 2. History of COPD patient maintained on IV steroids 3. 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 History of coronary artery disease status post bypass grafting 5. History of esophageal strictures with frequent episodes of food regurg. 6. History of bilateral apical consolidation seen on CT of chest this is related to postradiation changes per pulmonary 7. History of hypothyroidism 8. History of GERD 9. Ex-smoker. DVT prophylaxis Lovenox. GI prophylaxis Protonix Pulmonary and infectious disease service is consulted Continue IV antibiotics Patient maintained on IV steroids Sputum and blood cultures ordered
[2021-04-21 19:58] LABS: Glucose,Whole Blood 117 mg/dL (75-99)
[2021-04-21] MEDS: FLUCONAZOLE IN NACL,ISO-OSM 200 MG in SALINE 1 100ML.BAG IVPB SCH (21:23)
[2021-04-21] MEDS: MONTELUKAST 10 MG TAB PO SCH (23:48)
[2021-04-22] MEDS: LEVOTHYROXINE 125 MCG TAB PO SCH (04:53)
[2021-04-22 06:09] LABS: Glucose,Whole Blood 116 mg/dL (75-99)
[2021-04-22] MEDS: INSULIN ASPART (NovoLOG) 100 UNIT/ML VIAL SQ SCH ×4 (06:09→19:02)
--- NOTE | 2021-04-22 06:17 | P.CONS ---
History of Present Illness - Reason for Consult Consult date: 04/21/21 pneumonia Requesting physician: Kale Fischer - Chief Complaint shortness of breath and cough x few days - History of Present Illness History of present illness : Patient is 75-year-old male who was recently admitted at this facility patient was diagnosed with a pneumonia sputum culture positive for MRSA patient was treated with vancomycin and subsequent discharged home on oral Zyvox patient presenting back to the hospital on the 24 for evaluation of increasing shortness of breath that been getting worse for a day before presentation to the hospital patient also noted to have low O2 sats of 75% at home patient did have a cough productive of purulent sputum, denies significant chest pain the has been complaining of feeling nauseous but no vomiting no abdominal pain or any diarrhea with the symptoms the patient was evaluated by ER physician on arrival to the ER patient did have a low-grade fever 100.7 F he did have O2 sats of 75% on arrival to the ER did have white count of 19.7 D-dimer was negative creatinine was normal neuro exams are normal cisneros PCR was negative blood culture pending currently pending chest x-ray bilateral infiltrate correlate for pneumonia patient did have a swallow evaluation with evidence of aspiration patient has been treated with the Zyvox and Zosyn infectious disease was consulted for further management of antibiotic therapy Review of system: CONSTITUTIONAL: Positive for weakness along with the fever. EYES: No complaint. ENT: No complaint. RESPIRATORY: As per history of present illness CARDIOVASCULAR: No complaint. GENITOURINARY: No complaint. GASTROINTESTINAL: As per history of present illness. MUSCULOSKELETAL: No complaint. INTEGUMENTARY: No complaint. PSYCHOLOGIC: No complaint. ENDOCRINE: No complaint. NEUROLOGIC: No complaint. Past medical history : Reviewed, documented below Past surgical history : Reviewed, documented below Social history: Reviewed, documented below Medications: Reviewed, as documented below GENERAL DESCRIPTION: Elderly male lying in bed, no distress. No tachypnea or accessory muscle of respiration use. HEENT: Shows Pallor , no scleral icterus. Oral mucous membrane is dry. NECK: Trachea central, no thyromegaly. LUNGS: Unlabored breathing. Coarse breath sounds bilaterally. No wheeze or crackle. HEART: S1, S2, regular rate and rhythm. ABDOMEN: Soft, no tenderness , guarding or rigidity EXTREMITIES: No edema of feet. SKIN: No rash, no masses palpable. NEUROLOGICAL: The patient is awake, alert, oriented x3, mood and affect normal. LABS AND RADIOLOGY: Reviewed results see below Assessment : Patient presented to hospital with increasing shortness of breath c ough in this patient who did have a fever evidence of bilateral lower lobe pneumonia likely of aspiration etiology with abnormal swallow test and a recent diagnosis of MRSA pneumonia failing outpatient oral Zyvox therapy Plan: 1-patient may benefit from neuro evaluation for anxiety etiology of his aspiration 2-sputum for Gram stain culture 3-continue with Zyvox and Zosyn We will follow on clinical condition and cultures to further adjust medication if needed Thank you for this consultation we will follow the patient along with you Past Medical History Past Medical History: Coronary Artery Disease (CAD), Cancer, Chest Pain / Angina, COPD, CVA/TIA, GERD/Reflux, Hearing Disorder / Deafness, Hyperlipidemia, Hypertension, Pneumonia, Renal Disease, Syncope, Thyroid Disorder, Vascular Disorder Additional Past Medical History / Comment(s): 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 Current lung congestion, coughing, wheezing ongoing. History of Any Multi-Drug Resistant Organisms: None Reported Past Surgical History: Coronary Bypass/CABG, Heart Catheterization, Hernia Repair, Orthopedic Surgery Additional Past Surgical History / Comment(s): 02/2017 CABG-4 vessel, angiograms, R internal caratid stented, 2005 radical neck dissection for pharyngeal cancer, L/R inguinal hernia repair, 3 sinus surgeries with benign polypectomy, colonoscopy, bilateral rotator cuff repairs. Past Anesthesia/Blood Transfusion Reactions: No Reported Reaction, Motion Sickness Past Psychological History: No Psychological Hx Reported Additional Psychological History / Comment(s): Pt resides with his spouse. He is independent. He is a [employer] . He was stationed in [facility]. Smoking Status: Former smoker Past Alcohol Use History: Rare Additional Past Alcohol Use History / Comment(s): Pt started smoking occasional cigars/pipe in 1964 and quit in 1984. Past Drug Use History: Marijuana - Past Family History Father Family Medical History: Cancer Additional Family Medical History / Comment(s): Father had lung cancer. He was a smoker. Mother Family Medical History: Congestive Heart Failure (CHF) Sister(s) Family Medical History: Cancer Medications and Allergies Home Medications Medication Instructions Recorded Confirmed Type Fluticasone Nasal Distant [Flonase 1 spray EA NOSTRIL BID PRN 02/12/17 04/19/21 History Nasal Distant] Levothyroxine Sodium [Synthroid] 125 mcg PO DAILY 02/12/17 04/19/21 History Aspirin 81 mg PO DAILY #30 03/21/17 04/19/21 Rx Metoprolol Tartrate [Lopressor] 25 mg PO BID PRN 07/02/17 04/19/21 History Clopidogrel [Plavix] 75 mg PO DAILY 09/10/18 04/19/21 History Midodrine [ProAmatine] 5 mg PO TID PRN 04/04/19 04/19/21 History Albuterol Inhaler [Ventolin Hfa 1 - 2 puff INHALATION RT-Q6H PRN 04/09/21 04/19/21 History Inhaler] Atorvastatin [Lipitor] 20 mg PO DAILY 04/09/21 04/19/21 History Docusate [Colace] 100 mg PO BID 04/09/21 04/19/21 History Finasteride [Proscar] 5 mg PO DAILY 04/09/21 04/19/21 History Ipratropium-Albuterol Nebulize 1 vial INHALATION RT-QID PRN 04/09/21 04/19/21 History [Duoneb 0.5 mg-3 mg/3 ml Soln] Montelukast [Singulair] 10 mg PO HS 04/09/21 04/19/21 History Pantoprazole [Protonix] 40 mg PO BID 04/09/21 04/19/21 History amLODIPine [Norvasc] 5 mg PO DAILY PRN 04/09/21 04/19/21 History predniSONE 5 mg PO DAILY 04/09/21 04/19/21 History Linezolid [Zyvox] 600 mg PO Q12H #20 tab 04/14/21 04/19/21 Rx Allergies Allergy/AdvReac Type Severity Reaction Status Date / Time No Known Allergies Allergy Verified 04/19/21 16:43 Physical Exam Vitals: Vital Signs Temp Pulse Pulse Resp BP Pulse Ox 04/21/21 08:00 79 16 151/89 100 04/21/21 04:00 68 20 120/64 94 L 04/21/21 02:00 18 04/21/21 00:00 84 18 149/89 93 L 04/20/21 21:00 90 04/20/21 20:50 88 04/20/21 20:00 97.8 F 67 18 163/85 88 L 04/20/21 16:00 90 16 113/68 96 04/20/21 12:00 83 16 137/82 95 Intake and Output 04/20/21 04/21/21 04/21/21 22:59 06:59 14:59 Intake Total 1000 Balance 1000 Intake: Intake, IV Titration 1000 Amount Piperacillin-Tazobactam 3 200 .375 gm In Sodium Chloride 0.9% 100 ml @ 25 mls/hr IVPB Q8HR [facility] Rx# :[id number] Sodium Chloride 0.9% 1, 800 000 ml @ 100 mls/hr IV . Q10H [facility] Rx#:[id number] Other: # Voids 1 2 Weight 59.6 kg Results CBC & Chem 7: 04/21/21 06:59 04/21/21 06:59 Labs: Abnormal Lab Results - Last 24 Hours (Table) 04/20/21 04/20/21 04/20/21 Range/Units 12:43 16:48 20:15 WBC (3.8-10.6) k/uL RBC (4.30-5.90) m/uL Hgb (13.0-17.5) gm/dL Hct (39.0-53.0) % Neutrophils # (1.3-7.7) k/uL Lymphocytes # (1.0-4.8) k/uL Sodium (137-145) mmol/L Chloride (98-107) mmol/L BUN (9-20) mg/dL Glucose (74-99) mg/dL POC Glucose (mg/dL) 138 H 157 H 147 H (75-99) mg/dL Total Protein (6.3-8.2) g/dL Albumin (3.5-5.0) g/dL 04/21/21 04/21/21 04/21/21 Range/Units 06:10 06:59 06:59 WBC 18.7 H (3.8-10.6) k/uL RBC 4.24 L (4.30-5.90) m/uL Hgb 11.8 L (13.0-17.5) gm/dL Hct 35.8 L (39.0-53.0) % Neutrophils # 17.7 H (1.3-7.7) k/uL Lymphocytes # 0.5 L (1.0-4.8) k/uL Sodium 132 L (137-145) mmol/L Chloride 96 L (98-107) mmol/L BUN 41 H (9-20) mg/dL Glucose 142 H (74-99) mg/dL POC Glucose (mg/dL) 152 H (75-99) mg/dL Total Protein 5.5 L (6.3-8.2) g/dL Albumin 2.8 L (3.5-5.0) g/dL Microbiology - Last 24 Hours (Table) 04/20/21 21:40 Gram Stain - Preliminary Sputum Sputum Culture - Preliminary 04/19/21 14:07 Blood Culture - Preliminary Blood No Growth after 24 hours 04/19/21 14:07 Blood Culture - Preliminary Blood No Growth after 24 hours
[2021-04-22] MEDS: SODIUM CHLORIDE 0.9% 1,000 ML IV SCH ×2 (07:25→16:49)
[2021-04-22] MEDS: PIPERACILLIN-TAZOBACTAM 3.375 GM in SODIUM CHLORIDE 0.9% 100 ML IVPB SCH ×2 (07:31→15:15)
[2021-04-22] MEDS: ASPIRIN 81 MG PO SCH (07:33)
[2021-04-22] MEDS: ATORVASTATIN 20 MG TAB PO SCH (07:33)
[2021-04-22] MEDS: methylPREDNISolone SOD SUCCI 125 MG/2 ML VIAL IV SCH ×4 (07:34→19:37)
[2021-04-22] MEDS: LINEZOLID 600 MG TAB PO SCH ×2 (07:34→19:02)
[2021-04-22] MEDS: DOCUSATE 100 MG CAP PO SCH ×2 (07:34→19:02)
[2021-04-22] MEDS: FINASTERIDE 5 MG TAB PO SCH (07:34)
[2021-04-22] MEDS: NYSTATIN 100,000 UNIT/ML SUSP 500,000 UNIT/5 ML CUP PO SCH ×4 (07:35→19:37)
[2021-04-22] MEDS: PANTOPRAZOLE 40 MG/10 ML VIAL IVP SCH ×2 (07:35→19:37)
[2021-04-22 08:07] LABS: Basophils % (A) 0 %; Eosinophils % (A) 0 %; HCT 41.8 % (39.0-53.0); HGB 13.4 gm/dL (13.0-17.5); Lymphocytes # (A) 0.8 k/uL (1.0-4.8); Lymphocytes % (A) 3 %; MCH 27.8 pg (25.0-35.0); MCV 86.8 fL (80.0-100.0); Mean Platelet Volume 6.7; Monocytes # (A) 0.6 k/uL (0-1.0); Monocytes % (A) 3 %; Neutrophils # (A) 20.8 k/uL (1.3-7.7); Neutrophils % (A) 93 %; Platelet Count 481 k/uL (150-450); RBC 4.81 m/uL (4.30-5.90); RDW 14.6 % (11.5-15.5); WBC 22.3 k/uL (3.8-10.6)
[2021-04-22 08:31] LABS: Albumin 3.6 g/dL (3.5-5.0); Calcium 9.2 mg/dL (8.4-10.2); Potassium 3.9 mmol/L (3.5-5.1); Total Bilirubin 0.6 mg/dL (0.2-1.3); Total Protein 6.4 g/dL (6.3-8.2)
[2021-04-22] MEDS: IPRATROPIUM-ALBUTEROL 3 ML NEB INHALATION PRN ×2 (09:08→20:17)
--- NOTE | 2021-04-22 10:40 | P.PN ---
Subjective Progress Note Date: 04/22/21 This is a 75-year-old male patient who presented to the hospital with complaints of increased shortness of breath. Patient was recently admitted and discharged on 04/18/2021 for right lung pneumonia with MRSA. Patient was discharged home on Zyvox and he reports that he was taking medication as prescribed. upon discharge he was feeling well and then quickly declined throughout the next day upon exam he was found to have hypoxia with a pulse ox of 75%. Patient was placed on BiPAP and started on Zosyn and vancomycin. 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 Chest x-ray completed showing bilateral infiltrate correlate for pneumonia otherwise consider COPD with superimposed pulmonary edema. COVID test was negative. At this time patient is resting comfortably in bed. Patient reports significant improvement from yesterday. Patient is currently on 4 L nasal cannula. Pulmonary services are following. Infectious disease services also consulted. Patient remains on IV antibiotics repeat chest x-ray has been ordered. Patient denies chest pain. Patient denies nausea vomiting or diarrhea. Patient denies any urinary burning or frequency. On 04/21/2021 Patient was seen and examined on the medical floor, he is alert and oriented x 3 in no distress, he denies any complaints there is no fever or chills no headache or dizziness no chest pain no shortness of breath no palpitation no cough no nausea or vomiting no abdominal pain no diarrhea no blood in the stools no burning with urination no frequency or urgency and no hematuria, there is no weakness or numbness in any of the extremities no change in vision speech or gait. Patient underwent modified barium swallow preliminary report reveals evidence of aspiration with nectar and honey thick barium consistency, we are still awaiting the formal report. Patient is scheduled for PEG tube for feeding, he is nothing by mouth at this time, will start PPN until PEG tube is ready to be used. Patient has evidence of severe thrush will start IV Diflucan On 04/22/2021 patient alert and oriented x 3. Patient reports improvement with shortness of breath. Patient also reports improvement with oral thrush. Patient refusing central line for TPN at this time. Patient does have plans for PEG tube placement tomorrow. At this time patient is resting complete chair. Patient denies chest pain. Patient denies nausea vomiting or diarrhea. Patient denies any urinary burning or frequency Objective - Vital Signs Vital signs: Vital Signs Temp 97 F L 04/22/21 06:12 Pulse 84 04/22/21 09:17 Resp 16 04/22/21 06:12 BP 122/76 04/22/21 06:12 Pulse Ox 98 04/22/21 06:12 Intake & Output 04/21/21 04/22/21 04/22/21 18:59 06:59 18:59 Intake Total 1000 Balance 1000 Weight 59.6 kg 57.1 kg Intake: Intake, IV Titration 1000 Amount Piperacillin-Tazobactam 3 200 .375 gm In Sodium Chloride 0.9% 100 ml @ 25 mls/hr IVPB Q8HR [facility] Rx# :[id number] Sodium Chloride 0.9% 1, 800 000 ml @ 100 mls/hr IV . Q10H [facility] Rx#:[id number] Other: Voiding Method Urinal Urinal # Voids 2 - Exam In general patient is alert and oriented x 3 in no distress HEENT head normocephalic and atraumatic Neck is supple no JVD no goiter no lymphadenopathy no carotid bruit Chest examination reveals diminished lung sounds bilaterally with scattered rhonchi Cardiac exam reveals regular heart sounds S1 and S2 no gallops no murmurs Abdomen is soft nontender no organomegaly with normal bowel sounds Extremity exam reveals no edema no cyanosis or clubbing Neurological examination reveals no gross focal deficits - Labs CBC & Chem 7: 04/22/21 07:18 04/22/21 07:18 Labs: Abnormal Lab Results - Last 24 Hours (Table) 04/21/21 04/21/21 04/21/21 Range/Units 11:46 16:55 19:57 WBC (3.8-10.6) k/uL Plt Count (150-450) k/uL Neutrophils # (1.3-7.7) k/uL Lymphocytes # (1.0-4.8) k/uL Sodium (137-145) mmol/L Chloride (98-107) mmol/L BUN (9-20) mg/dL Glucose (74-99) mg/dL POC Glucose (mg/dL) 125 H 110 H 117 H (75-99) mg/dL 04/22/21 04/22/21 04/22/21 Range/Units 06:08 07:18 07:18 WBC 22.3 H (3.8-10.6) k/uL Plt Count 481 H (150-450) k/uL Neutrophils # 20.8 H (1.3-7.7) k/uL Lymphocytes # 0.8 L (1.0-4.8) k/uL Sodium 133 L (137-145) mmol/L Chloride 93 L (98-107) mmol/L BUN 33 H (9-20) mg/dL Glucose 116 H (74-99) mg/dL POC Glucose (mg/dL) 116 H (75-99) mg/dL Microbiology - Last 24 Hours (Table) 04/19/21 14:07 Blood Culture - Preliminary Blood No Growth after 48 hours 04/19/21 14:07 Blood Culture - Preliminary Blood No Growth after 48 hours 04/20/21 21:40 Gram Stain - Preliminary Sputum Sputum Culture - Preliminary Assessment and Plan Assessment: 1. Shortness of breath with acute hypoxic respiratory failure secondary to pneumonia. Patient was recently treated for MRSA in his sputum. At this time continue current IV antibiotics. pulmonary service is consulted. Infectious disease service is consulted. 2. History of COPD patient maintained on IV steroids 3. 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 History of coronary artery disease status post bypass grafting 5. History of esophageal strictures with frequent episodes of food regurg. 6. History of bilateral apical consolidation seen on CT of chest this is related to postradiation changes per pulmonary 7. History of hypothyroidism 8. History of GERD 9. Ex-smoker. 10. Oral thrush. Patient maintained on Diflucan DVT prophylaxis Lovenox. GI prophylaxis Protonix Pulmonary and infectious disease service is consulted GI service is consulted for EGD and PEG tube placement Tentative plans for PEG tube placement on 04/23/2021
[2021-04-22 12:04] LABS: Glucose,Whole Blood 107 mg/dL (75-99)
[2021-04-22 13:23] LABS: Magnesium 2.1 mg/dL (1.6-2.3); Phosphorus 3.4 mg/dL (2.5-4.5)
--- NOTE | 2021-04-22 16:06 | P.PN ---
Subjective Progress Note Date: 04/22/21 Principal diagnosis: Dysphagia, aspiration This is a 75-year-old white male with a past medical history of tonsillar cancer with a history of radical neck dissection, resection and chemoradiation in 2005, esophageal strictures requiring periodic esophageal dilation, hypertension, hyperlipidemia, hypothyroidism previous history of CVA, previous history of coronary artery disease status post CABG. He has a former smoker. He was recently hospitalized last week for pneumonia related to MRSA. The patient was scheduled to undergo outpatient EGD with dilation yesterday, however the had rescheduled it for next week. The patient was told he had to be off of his Plavix for 5 days prior to any procedures. The states he restarted his Plavix 3 days ago. Last dose of Plavix was yesterday morning. Patient is having difficulty with swallowing and regurgitating. He has been following with speech therapy outpatient and is well-known to them. He underwent a modified barium swallow yesterday showing aspiration with nectar and honey thick barium consistencies. Speech therapist reports silent aspiration, pharyngeal dysphasia and recommends PEG tube placement for nutrition. Recommend patient to be nothing by mouth other than ice chips and small sips of water. Patient and would like to proceed with PEG tube placement. This has been scheduled for tomorrow. Today he denies any abdominal pain, nausea, or vomiting. He is nothing by mouth other than ice chips and sips of water. It was discussed with the patient and his that if the stricture is too narrow and unable to pass the endoscope, will need to consult surgery for PEG tube placement. Objective - Vital Signs Vital signs: Vital Signs Temp 98 F 04/22/21 10:50 Pulse 88 04/22/21 10:50 Resp 16 04/22/21 10:50 BP 133/75 04/22/21 10:50 Pulse Ox 98 04/22/21 10:50 Intake & Output 04/21/21 04/22/21 04/22/21 18:59 06:59 18:59 Intake Total 1000 Balance 1000 Weight 59.6 kg 57.1 kg Intake: Intake, IV Titration 1000 Amount Piperacillin-Tazobactam 3 200 .375 gm In Sodium Chloride 0.9% 100 ml @ 25 mls/hr IVPB Q8HR [facility] Rx# :[id number] Sodium Chloride 0.9% 1, 800 000 ml @ 100 mls/hr IV . Q10H [facility] Rx#:[id number] Other: Voiding Method Urinal Urinal # Voids 2 - Exam General appearance: The patient is alert, oriented, appears in no acute distr ess. HET: Head is normocephalic and atraumatic. Conjunctiva pink. Sclera anicteric. Neck: Supple without lymphadenopathy. Abdomen: Soft, thin, nontender, nondistended with bowel sounds. No guarding or rigidity. Extremities: Normal skin color and turgor. No pedal edema Skin: No rashes, no jaundice Neurological: No focal deficits. Alert and oriented 3. - Labs CBC & Chem 7: 04/22/21 07:18 04/22/21 07:18 Labs: Abnormal Lab Results - Last 24 Hours (Table) 04/21/21 04/21/21 04/21/21 Range/Units 11:46 16:55 19:57 WBC (3.8-10.6) k/uL Plt Count (150-450) k/uL Neutrophils # (1.3-7.7) k/uL Lymphocytes # (1.0-4.8) k/uL Sodium (137-145) mmol/L Chloride (98-107) mmol/L BUN (9-20) mg/dL Glucose (74-99) mg/dL POC Glucose (mg/dL) 125 H 110 H 117 H (75-99) mg/dL 04/22/21 04/22/21 04/22/21 Range/Units 06:08 07:18 07:18 WBC 22.3 H (3.8-10.6) k/uL Plt Count 481 H (150-450) k/uL Neutrophils # 20.8 H (1.3-7.7) k/uL Lymphocytes # 0.8 L (1.0-4.8) k/uL Sodium 133 L (137-145) mmol/L Chloride 93 L (98-107) mmol/L BUN 33 H (9-20) mg/dL Glucose 116 H (74-99) mg/dL POC Glucose (mg/dL) 116 H (75-99) mg/dL Microbiology - Last 24 Hours (Table) 04/19/21 14:07 Blood Culture - Preliminary Blood No Growth after 48 hours 04/19/21 14:07 Blood Culture - Preliminary Blood No Growth after 48 hours 04/20/21 21:40 Gram Stain - Preliminary Sputum Sputum Culture - Preliminary Assessment and Plan (1) Dysphagia Narrative/Plan: M.D. 5-year-old male who presented to the hospital with increased shortness of breath who was recently admitted last week for pneumonia. He was readmitted with recurrent aspiration pneumonia. Patient has a history of tonsillar cancer status post radical neck dissection, resection and chemoradiation in 2005 with esophageal strictures requiring periodic esophageal dilation. He was scheduled this week for outpatient EGD with dilation however the patient rescheduled for next week. Patient is on Plavix for coronary artery disease and vascular diseas e status post stenting. He was told he had to be off the medication for 5 days prior to his procedure. When they rescheduled his restarted him on his Plavix 3 days ago. Last dose taken yesterday morning. Speech therapy consult. Patient underwent modified barium swallow that showed aspiration on multiple consistencies, speech therapist discussed that he has pharyngeal dysphagia and has recommended patient to be nothing by mouth with PEG tube placement. Gastroenterology was consult for esophageal strictures and PEG tube placement. Patient has had significant weight loss due to inability to swallow solids and regurgitation of food. Current Visit: No Status: Acute Code(s): R13.10 - DYSPHAGIA, UNSPECIFIED SNOMED Code(s): 24576358 (2) Aspiration pneumonia Current Visit: Yes Status: Acute Code(s): J69.0 - PNEUMONITIS DUE TO INHALATION OF FOOD AND VOMIT SNOMED Code(s): 266388180 (3) COPD (chronic obstructive pulmonary disease) Current Visit: Yes Status: Acute Code(s): J44.9 - CHRONIC OBSTRUCTIVE PULMONARY DISEASE, UNSPECIFIED SNOMED Code(s): 44060682 (4) Hypertension Current Visit: Yes Status: Acute Code(s): I10 - ESSENTIAL (PRIMARY) HYPERTENSION SNOMED Code(s): 57470605 (5) History of cancer tonsil Current Visit: No Status: Acute Code(s): Z85.818 - PRSNL HX OF MALIG NEOPLM OF SITE OF LIP, ORAL CAV, & PHARYNX SNOMED Code(s): 91318738444426 Plan: 1. Continue symptomatic and supportive care 2. Nothing by mouth 3. Hold Plavix 4. Protonix 40 mg IV push twice a day 5. Will proceed with PEG tube tomorrow if possible. Discussed with patient and his that if there is esophageal stricture and endoscope can not pass through, will not be able to proceed with PEG tube placement and surgery will need to be consulted. Risks and benefits of procedure discussed with patient and his , they are willing to proceed. Thank you for this consultation, we will continue to follow. Dr. Angela Byers I agree with the dictator's note, documented as a scribe by Alison Fam.
[2021-04-22 16:26] LABS: Glucose,Whole Blood 113 mg/dL (75-99)
--- NOTE | 2021-04-22 16:58 | P.PN ---
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 Patient is a former smoker. He was recently hospitalized right lung pneumonia, related to MRSA. Patient was treated with vancomycin, he was improving, his chest x-ray prior to discharge was showing clearing of the right upper lobe airspace disease. He was sent home 10 day course of Zyvox 600 mg by mouth twice daily. he is usually not oxygen dependent at baseline. He has frequent episodes of regurgitation of his food related to esophageal narrowing. He was supposed to undergo esophageal dilation this coming Sunday on 04/20/2021. His daughter brought him back for evaluation today on 04/19/2021 for worsening shortness of breath, and hypoxia. Patient denied any fever, denied any chest pain, no hemoptysis, no leg swelling. Patient was significantly short of breath and she was placed on BiPAP support. Also admits to being very weak. His pulse ox was only 75% upon arrival. His chest x-ray shows bilateral infiltrates. He was placed on BiPAP support with pressures of 12 and 6 and FiO2 of 80% and his pulse ox is 99%. He is tachypneic, his tachycardia, but has been afebrile since admission. His been started on Zosyn and vancomycin. He is on nebulized bronchodilators and IV steroids. His labs have been reviewed showing white blood cell, of 19.7, hemoglobin of 12.6, d-dimer was negative at 0.58, sodium was 128, potassium is 4.1, chloride was 87, CO2 is 32, BUN was 38, creatinine is 1.24, lactic acid is 2.2, AST 60, ALT is 43, alkaline phosphatase is 87, troponin is less than 0.012, proBNP was within normal limits at 151. Tested for COVID-19 and was found to be negative. On today's evaluation on 04/20/2021 patient is breathing much easier, he is currently off BiPAP support and on 4 L of oxygen. He is breathing comfortably, lung sounds reveal some scattered rhonchi, he has been afebrile overnight, overall breathing much easier, he was maintained on nothing by mouth overnight, he is awaiting speech evaluation. He is currently on a combination of Zosyn and Zyvox. He is bringing up some thick yellow sputum. No hemoptysis, no chest discomfort. This chest x-ray shows slight improvement in the appearance of bilateral infiltrates. White count is improving on today's labs. On 04/22/2021 patient is seen in follow-up. He is awake and alert, in no acute distress, he is currently on 3 L of oxygen with pulse ox of 98%,. Did not require BiPAP support overnight. He is been started on TPN. PICC line was inserted. He remains on the combination of Zosyn, Zyvox. His sputum culture also showed Radha albicans and Diflucan was added. Patient was seen by the GI service and PEG tube placement was requested. Patient is scheduled for PEG tube placement tomorrow on 04/23/2021 Objective - Vital Signs Vital signs: Vital Signs Temp 98 F 04/22/21 15:28 Pulse 76 04/22/21 15:28 Resp 16 04/22/21 15:28 BP 131/76 04/22/21 15:28 Pulse Ox 98 04/22/21 15:28 Intake & Output 04/21/21 04/22/21 04/22/21 18:59 06:59 18:59 Intake Total 1000 Balance 1000 Weight 59.6 kg 57.1 kg 57.1 kg Intake: Intake, IV Titration 1000 Amount Piperacillin-Tazobactam 3 200 .375 gm In Sodium Chloride 0.9% 100 ml @ 25 mls/hr IVPB Q8HR [facility] Rx# :[id number] Sodium Chloride 0.9% 1, 800 000 ml @ 100 mls/hr IV . Q10H [facility] Rx#:[id number] Other: Voiding Method Urinal Urinal Urinal # Voids 2 - Exam GENERAL EXAM: Alert, very pleasant, 75-year-old white male, currently breathing comfortably, on 4 L of oxygen with a pulse ox of 96%, comfortable in no apparent distress. HEAD: Normocephalic/atraumatic. EYES: Normal reaction of pupils, equal size. Conjunctiva pink, sclera white. NOSE: Clear with pink turbinates. THROAT: No erythema or exudates. NECK: No masses, no JVD, no thyroid enlargement, no adenopathy. CHEST: No chest wall deformity. Symmetrical expansion. LUNGS: Equal air entry with diffuse rhonchi CVS: Regular rate and rhythm, normal S1 and S2, no gallops, no murmurs, no rubs ABDOMEN: Soft, nontender. No hepatosplenomegaly, normal bowel sounds, no guarding or rigidity. EXTREMITIES: No clubbing, no edema, no cyanosis, 2+ pulses and upper and lower extremities. MUSCULOSKELETAL: Muscle strength and tone normal. SPINE: No scoliosis or deformity SKIN: No rashes CENTRAL NERVOUS SYSTEM: Alert and oriented -3. No focal deficits, tone is normal in all 4 extremities. PSYCHIATRIC: Alert and oriented -3. Appropriate affect. Intact judgment and insight. - Labs CBC & Chem 7: 04/22/21 07:18 04/22/21 07:18 Labs: Abnormal Lab Results - Last 24 Hours (Table) 04/21/21 04/21/21 04/22/21 Range/Units 16:55 19:57 06:08 WBC (3.8-10.6) k/uL Plt Count (150-450) k/uL Neutrophils # (1.3-7.7) k/uL Lymphocytes # (1.0-4.8) k/uL Sodium (137-145) mmol/L Chloride (98-107) mmol/L BUN (9-20) mg/dL Glucose (74-99) mg/dL POC Glucose (mg/dL) 110 H 117 H 116 H (75-99) mg/dL 04/22/21 04/22/21 04/22/21 Range/Units 07:18 07:18 12:03 WBC 22.3 H (3.8-10.6) k/uL Plt Count 481 H (150-450) k/uL Neutrophils # 20.8 H (1.3-7.7) k/uL Lymphocytes # 0.8 L (1.0-4.8) k/uL Sodium 133 L (137-145) mmol/L Chloride 93 L (98-107) mmol/L BUN 33 H (9-20) mg/dL Glucose 116 H (74-99) mg/dL POC Glucose (mg/dL) 107 H (75-99) mg/dL 04/22/21 Range/Units 16:25 WBC (3.8-10.6) k/uL Plt Count (150-450) k/uL Neutrophils # (1.3-7.7) k/uL Lymphocytes # (1.0-4.8) k/uL Sodium (137-145) mmol/L Chloride (98-107) mmol/L BUN (9-20) mg/dL Glucose (74-99) mg/dL POC Glucose (mg/dL) 113 H (75-99) mg/dL Microbiology - Last 24 Hours (Table) 04/19/21 14:07 Blood Culture - Preliminary Blood No Growth after 72 hours 04/19/21 14:07 Blood Culture - Preliminary Blood No Growth after 72 hours 04/20/21 21:40 Gram Stain - Preliminary Sputum Sputum Culture - Preliminary Radha albicans Assessment and Plan Plan: Assessment: #1. Acute hypoxic respiratory failure related to recurrent aspiration pneumonia. Most recent sputum culture was positive for MRSA. Currently covered with Zosyn and vancomycin. COVID-19 was negative #2. Recent hospitalization for right upper lobe pneumonia related to aspiration and MRSA pneumonia. Discharge home on 04/16/2021 on 10 day course of Zyvox #3. Esophageal stricture, patient has frequent episodes of food regurgitation. Patient is scheduled for esophageal dilation on 04/20/2021 on an outpatient basis #4. GERD/reflux #5. Previous history of tonsillar/pharyngeal cancer, status post radical neck dissection followed by chemoradiation in 2005 #6. History of coronary artery disease status post bypass grafting #7. History of bilateral carotid artery stenosis status post stenting #8. History of bilateral apical consolidation seen on the CT of the chest, related to postradiation changes #9. Hypothyroidism #10. Former smoker Plan: Continue current medical treatment Continue current antibiotics Weaning FiO2 as tolerated Vital signs are stable, patient is breathing easier Continue to follow I performed a history & physical examination of the patient and discussed their management with my nurse practitioner, Jaycee Trotter. I reviewed the nurse practitioner's note and agree with the documented findings and plan of care. Lung sounds are positive for diffuse wheezes throughout the lung olsen. The findings and the impression was discussed with the patient. I attest to the documentation by the nurse practitioner. Time with Patient: Less than 30
--- NOTE | 2021-04-22 17:08 | PN ---
PROGRESS NOTE DATE OF SERVICE: 04/22/2021 REASON FOR FOLLOWUP: Recurrent aspiration pneumonia. INTERVAL HISTORY: The patient is afebrile. The patient is breathing more comfortably. The patient denies having any chest pain. Cough has decreased in intensity. No vomiting. No abdominal pain or diarrhea. Currently waiting for the PEG tube placement. PHYSICAL EXAMINATION: Blood pressure 133/75 with a pulse of 80, temperature 98. He is 98% on 3 L nasal cannula. GENERAL DESCRIPTION: General description is an elderly male up in the bed in no distress. RESPIRATORY SYSTEM: Unlabored breathing. Decreased intensity of breath sounds. No wheeze. HEART: S1, S2. Regular rate and rhythm. ABDOMEN: Soft. No tenderness. EXTREMITIES: No edema of the feet. LABS: Hemoglobin is 13.2, white count 2.3, BUN of 33, creatinine 1.0. DIAGNOSTIC IMPRESSION AND PLAN: Patient with recurrent aspiration pneumonia. Recent sputum was positive for MRSA. Patient is currently covered with Zyvox and Zosyn; to continue while waiting for repeat culture to finalize and monitor his clinical course closely. Continue supportive care. MMODL / IJN: [id number] /
[2021-04-22] MEDS: MONTELUKAST 10 MG TAB PO SCH (19:02)
[2021-04-22 19:58] LABS: Glucose,Whole Blood 126 mg/dL (75-99)
[2021-04-22] MEDS: FLUCONAZOLE IN NACL,ISO-OSM 200 MG in SALINE 1 100ML.BAG IVPB SCH (20:54)
[2021-04-23] MEDS: LEVOTHYROXINE 125 MCG TAB PO SCH (02:04)
[2021-04-23] MEDS: PIPERACILLIN-TAZOBACTAM 3.375 GM in SODIUM CHLORIDE 0.9% 100 ML IVPB SCH ×4 (02:04→23:24)
[2021-04-23] MEDS: SODIUM CHLORIDE 0.9% 1,000 ML IV SCH ×3 (02:05→20:51)
[2021-04-23] MEDS: NYSTATIN 100,000 UNIT/ML SUSP 500,000 UNIT/5 ML CUP PO SCH ×4 (06:24→23:24)
[2021-04-23 06:25] LABS: Glucose,Whole Blood 123 mg/dL (75-99)
[2021-04-23] MEDS: INSULIN ASPART (NovoLOG) 100 UNIT/ML VIAL SQ SCH ×4 (06:25→20:33)
[2021-04-23] MEDS ORDERED: LIDOCAINE 1% INJ 10MG/ML (20 ML MDV) ONE (07:23)
[2021-04-23] MEDS ORDERED: PROPOFOL 10 MG/ML 20 ML VIAL IV ONE (07:23)
[2021-04-23] MEDS ORDERED: IV FLUID CONTINUATION 500 ML IV ONE (07:25)
--- NOTE | 2021-04-23 07:56 | P.PCN ---
Date of Procedure: 04/23/21 Procedure(s) Performed: Brief history: Patient is a 75-year-old pleasant scheduled for an EGD with PEG tube placement today as a part of evaluation of progressive dysphagia to solids evidence of aspiration. He has prior history of head and neck cancer for which she underwent radiation therapy in 2005. Lately has been having progressive dysphagia to solids and liquids. He had a modified barium swallow done 2 days ago that showed evidence of aspiration. Patient is admitted to the hospital with aspiration pneumonia and respiratory antibiotics Procedure performed: EGD with PEG tube placement and biopsy Preoperative diagnosis: Severe progressive dysphagia with weight loss and aspiration IV sedation by anesthesia Procedure: After informed consent was obtained with the patient as well as the family the patient was brought into the endoscopy unit. IV conscious sedation was administered by anesthesia under continuous monitoring. The Olympus GF 160 video endoscope was inserted into the mouth and esophagus intubated without any difficulty and was gradually advanced. In the proximal cervical esophagus there was a esophagus which are identified and with gentle manipulation I was able to advance the scope into to the stomach and duodenum. The bulb and second part of the duodenum was visualized which appeared normal. The scope at this time was withdrawn to the stomach adequately insufflated with air. Adequate transillumination was achieved onto the anterior abdominal wall. At the site of adequate transillumination and maximal finger indentation, on the anterior abdominal wall, this area was sterilely prepped and draped. One percent Xylocaine was infiltrated into the skin and a small incision was made. Trocar and cannula was passed through the incision into the stomach cavity. The trocar was removed. Guidewire was passed through the cannula into the stomach cavity which was held by the snare that was passed through the scope. The guidewire along with the scope was gently withdrawn from the stomach esophagus out of the mouth. A 20-[employer] PEG tube was passed over the guidewire and was gently advanced into the mouth and esophagus and stomach. With gentle traction the guidewire along with the PEG tube was pulled from the anterior abdominal wall until the internal bumper appeared to be in secure position. Repeat EGD was performed and the esophagus intubated without any difficulty and was advanced into the stomach. The internal bumper appeared to be in secure position. The visualized portions of the antrum body cardia and fundus of the stomach appeared normal. The esophagus was carefully examined as the scope was gradually being withdrawn and there were multiple small punctate like ulcerations involving the entire esophagus and biopsies were done from this area. There was some oozing noted in the proximal cervical esophagus. The esophageal stricture was dilated with the passage of the scope.. At this time external bumper was placed on the PEG tube closer to the anterior abdominal wall at 2 cm elizabeth. The patient tolerated the procedure well. Impression: Successful 20[employer] PEG tube placement as described above. Multiple superficial small punctate like ulcerations in the entire esophagus status post biopsy to rule out infectious esophagitis Proximal esophageal stricture status post dilation with the passage of the scope Recommendations: Findings of this examination were discussed with the patient's family. The patient will be started on tube feeds tomorrow. Post-PEG tube orders were written. Resume liquids today.
[2021-04-23] MEDS ORDERED: MVI, ADULT NO.4 WITH VIT K 10 ML, TRACE (CONC-1ML/DOSE) 1 ML in AMINO ACID 5%-D20W+LYTE... IV SCH ×3 (08:00)
[2021-04-23 08:04] LABS: Ionized Calcium 4.8 mg/dL (4.5-5.3)
[2021-04-23] MEDS: ASPIRIN 81 MG PO SCH (08:09)
[2021-04-23] MEDS: ATORVASTATIN 20 MG TAB PO SCH (08:09)
[2021-04-23] MEDS: LINEZOLID 600 MG TAB PO SCH ×2 (08:10→21:10)
[2021-04-23] MEDS: FINASTERIDE 5 MG TAB PO SCH (08:10)
[2021-04-23] MEDS: DOCUSATE 100 MG CAP PO SCH ×2 (08:10→21:05)
[2021-04-23 08:17] LABS: Calcium 9.2 mg/dL (8.4-10.2); Magnesium 2.1 mg/dL (1.6-2.3); Phosphorus 3.4 mg/dL (2.5-4.5); Potassium 4.2 mmol/L (3.5-5.1)
[2021-04-23] MEDS: ENOXAPARIN 40 MG/0.4 ML SYRINGE SQ SCH (08:34)
[2021-04-23] MEDS: PANTOPRAZOLE 40 MG/10 ML VIAL IVP SCH ×2 (08:34→20:49)
[2021-04-23] MEDS: methylPREDNISolone SOD SUCCI 125 MG/2 ML VIAL IV SCH ×4 (08:34→20:57)
[2021-04-23] MEDS: IPRATROPIUM-ALBUTEROL 3 ML NEB INHALATION PRN ×2 (08:50→19:39)
[2021-04-23] MEDS ORDERED: FAT EMULSION 20% 500 ML in EMPTY BAG 1 BAG IV SCH (09:00)
[2021-04-23] MEDS ORDERED: ACETAMINOPHEN IV (For NPO) 1,000 MG in EMPTY BAG 1 BAG IVPB SCH (10:00)
[2021-04-23] MEDS ORDERED: ACETAMINOPHEN IV (For NPO) 1,000 MG in EMPTY BAG 1 BAG IVPB PRN (10:28)
[2021-04-23 11:55] LABS: Glucose,Whole Blood 115 mg/dL (75-99)
--- NOTE | 2021-04-23 13:02 | P.PN ---
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 Patient is a former smoker. He was recently hospitalized right lung pneumonia, related to MRSA. Patient was treated with vancomycin, he was improving, his chest x-ray prior to discharge was showing clearing of the right upper lobe airspace disease. He was sent home 10 day course of Zyvox 600 mg by mouth twice daily. he is usually not oxygen dependent at baseline. He has frequent episodes of regurgitation of his food related to esophageal narrowing. He was supposed to undergo esophageal dilation this coming Sunday on 04/20/2021. His daughter brought him back for evaluation today on 04/19/2021 for worsening shortness of breath, and hypoxia. Patient denied any fever, denied any chest pain, no hemoptysis, no leg swelling. Patient was significantly short of breath and she was placed on BiPAP support. Also admits to being very weak. His pulse ox was only 75% upon arrival. His chest x-ray shows bilateral infiltrates. He was placed on BiPAP support with pressures of 12 and 6 and FiO2 of 80% and his pulse ox is 99%. He is tachypneic, his tachycardia, but has been afebrile since admission. His been started on Zosyn and vancomycin. He is on nebulized bronchodilators and IV steroids. His labs have been reviewed showing white blood cell, of 19.7, hemoglobin of 12.6, d-dimer was negative at 0.58, sodium was 128, potassium is 4.1, chloride was 87, CO2 is 32, BUN was 38, creatinine is 1.24, lactic acid is 2.2, AST 60, ALT is 43, alkaline phosphatase is 87, troponin is less than 0.012, proBNP was within normal limits at 151. Tested for COVID-19 and was found to be negative. On today's evaluation on 04/20/2021 patient is breathing much easier, he is currently off BiPAP support and on 4 L of oxygen. He is breathing comfortably, lung sounds reveal some scattered rhonchi, he has been afebrile overnight, overall breathing much easier, he was maintained on nothing by mouth overnight, he is awaiting speech evaluation. He is currently on a combination of Zosyn and Zyvox. He is bringing up some thick yellow sputum. No hemoptysis, no chest discomfort. This chest x-ray shows slight improvement in the appearance of bilateral infiltrates. White count is improving on today's labs. On 04/22/2021 patient is seen in follow-up. He is awake and alert, in no acute distress, he is currently on 3 L of oxygen with pulse ox of 98%,. Did not require BiPAP support overnight. He is been started on TPN. PICC line was inserted. He remains on the combination of Zosyn, Zyvox. His sputum culture a lso showed Radha albicans and Diflucan was added. Patient was seen by the GI service and PEG tube placement was requested. Patient is scheduled for PEG tube placement tomorrow on 04/23/2021 A 2020, the patient is doing well. Brester status is stable. No further bouts of aspiration as the patient is currently nothing by mouth. He has been weaned down to 2 L about 2 by nasal cannula. He remains on examination of Zyvox and Zosyn. No fever. No chills. No respiratory distress pain no sputum production. Meanwhile, his successful PEG tube insertion was done today by gastroenterology. The patient will be started on enteral feeding for nutritional support 4 hours. He still being hydrated IV fluids. The sputum sample came back again positive for Radha. Sodium is at 132. BUN 36 with a creatinine of 1.02. Diflucan was added. IV fluids are running at the rate of 100 mL an hour of normal saline. He remains on Zosyn. He remains on Zyvox. Objective - Vital Signs Vital signs: Vital Signs Temp 96.7 F L 04/23/21 12:10 Pulse 89 04/23/21 12:10 Resp 18 04/23/21 12:10 BP 141/82 04/23/21 12:10 Pulse Ox 96 04/23/21 12:10 Intake & Output 04/22/21 04/23/21 04/23/21 18:59 06:59 18:59 Intake Total 220 Balance 220 Weight 57.1 kg Intake: IV 100 Oral 120 Other: Voiding Method Urinal Urinal - Exam GENERAL EXAM: Alert, very pleasant, 75-year-old white male, currently breathing comfortably, on 2 L of oxygen with a pulse ox of 96%, comfortable in no apparent distress. HEAD: Normocephalic/atraumatic. EYES: Normal reaction of pupils, equal size. Conjunctiva pink, sclera white. NOSE: Clear with pink turbinates. THROAT: No erythema or exudates. NECK: No masses, no JVD, no thyroid enlargement, no adenopathy. CHEST: No chest wall deformity. Symmetrical expansion. LUNGS: Equal air entry with diffuse rhonchi CVS: Regular rate and rhythm, normal S1 and S2, no gallops, no murmurs, no rubs ABDOMEN: Soft, nontender. No hepatosplenomegaly, normal bowel sounds, no guarding or rigidity. The PEG tube site is dry clean and intact. No evidence of any leak around the tube. EXTREMITIES: No clubbing, no edema, no cyanosis, 2+ pulses and upper and lower extremities. MUSCULOSKELETAL: Muscle strength and tone normal. SPINE: No scoliosis or deformity SKIN: No rashes CENTRAL NERVOUS SYSTEM: Alert and oriented -3. No focal deficits, tone is normal in all 4 extremities. PSYCHIATRIC: Alert and oriented -3. Appropriate affect. Intact judgment and insight. - Labs CBC & Chem 7: 04/22/21 07:18 04/23/21 07:04 Labs: Abnormal Lab Results - Last 24 Hours (Table) 04/22/21 04/22/21 04/23/21 Range/Units 16:25 19:56 06:23 Sodium (137-145) mmol/L Chloride (98-107) mmol/L BUN (9-20) mg/dL Glucose (74-99) mg/dL POC Glucose (mg/dL) 113 H 126 H 123 H (75-99) mg/dL 04/23/21 04/23/21 Range/Units 07:04 11:52 Sodium 132 L (137-145) mmol/L Chloride 93 L (98-107) mmol/L BUN 36 H (9-20) mg/dL Glucose 118 H (74-99) mg/dL POC Glucose (mg/dL) 115 H (75-99) mg/dL Microbiology - Last 24 Hours (Table) 04/20/21 21:40 Gram Stain - Final Sputum Sputum Culture - Final Radha albicans 04/19/21 14:07 Blood Culture - Preliminary Blood No Growth after 72 hours 04/19/21 14:07 Blood Culture - Preliminary Blood No Growth after 72 hours Assessment and Plan Plan: #1. Acute hypoxic respiratory failure related to recurrent aspiration pneumonia. Most recent sputum culture was positive for MRSA and subsequent sputum culture came back positive for Radha.. Currently covered with Zosyn and vancomycin and Diflucan.. COVID-19 was negative. Patient is currently on oxygen 2 L per minute nasal cannula. #2. Aspiration, recurrent, post PEG tube insertion #3. Esophageal stricture, patient has frequent episodes of food regurgitation. Patient is scheduled for esophageal dilation on 04/20/2021 on an outpatient basis #4. GERD/reflux #5. Previous history of tonsillar/pharyngeal cancer, status post radical neck dissection followed by chemoradiation in 2005 #6. History of coronary artery disease status post bypass grafting #7. History of bilateral carotid artery stenosis status post stenting #8. History of bilateral apical consolidation seen on the CT of the chest, related to postradiation changes #9. Hypothyroidism #10. Former smoker Plan: Initiate enteral feeding as of tomorrow, 24 hours after PEG tube insertion Continue Zyvox Zosyn and Diflucan Oxygenation is improved and the patient is currently on 2 L Vital signs are stable, patient is breathing easier Continue to follow
[2021-04-23] MEDS: HYDROmorphone 0.5 MG/0.5 ML SYRINGE IVP PRN ×4 (13:51→23:54)
--- NOTE | 2021-04-23 15:54 | PN ---
PROGRESS NOTE DATE OF SERVICE: 04/23/2021 REASON FOR FOLLOWUP: Recurrent aspiration pneumonia. INTERVAL HISTORY: The patient is status post PEG tube placement this morning by GI. The patient tolerated the procedure. Has been complaining of some pain and has received Dilaudid. He is currently sleepy. No agitation noted. No worsening cough or sputum production. at the bedside. PHYSICAL EXAMINATION: Blood pressure 141/82 with a pulse of 89, temperature 96.7. He is 96% on 2 L nasal cannula. GENERAL DESCRIPTION: General description is an elderly male lying in bed in no distress. RESPIRATORY SYSTEM: Unlabored breathing. Decreased breath sounds at the bases. No wheeze. HEART: S1, S2. Regular rate and rhythm. ABDOMEN: Soft. No tenderness. LABS: BUN of 36, creatinine 1.02. Sputum showing Radha albicans. DIAGNOSTIC IMPRESSION AND PLAN: Patient with recurrent aspiration pneumonia, currently covered with Zosyn and Zyvox, as the patient's recent culture was positive for MRSA. Repeat showing only radha, more likely a colonizer. Patient to continue on current antibiotics. Transition to oral antibiotic on discharge. Continue with supportive care. MMODL / IJN: [id number] /
--- NOTE | 2021-04-23 16:23 | P.PN ---
Subjective Progress Note Date: 04/23/21 This is a 75-year-old male patient who presented to the hospital with complaints of increased shortness of breath. Patient was recently admitted and discharged on 04/18/2021 for right lung pneumonia with MRSA. Patient was discharged home on Zyvox and he reports that he was taking medication as prescribed. upon discharge he was feeling well and then quickly declined throughout the next day upon exam he was found to have hypoxia with a pulse ox of 75%. Patient was placed on BiPAP and started on Zosyn and vancomycin. 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 Chest x-ray completed showing bilateral infiltrate correlate for pneumonia otherwise consider COPD with superimposed pulmonary edema. COVID test was negative. At this time patient is resting comfortably in bed. Patient reports significant improvement from yesterday. Patient is currently on 4 L nasal cannula. Pulmonary services are following. Infectious disease services also consulted. Patient remains on IV antibiotics repeat chest x-ray has been ordered. Patient denies chest pain. Patient denies nausea vomiting or diarrhea. Patient denies any urinary burning or frequency. On 04/21/2021 Patient was seen and examined on the medical floor, he is alert and oriented x 3 in no distress, he denies any complaints there is no fever or chills no headache or dizziness no chest pain no shortness of breath no palpitation no cough no nausea or vomiting no abdominal pain no diarrhea no blood in the stools no burning with urination no frequency or urgency and no hematuria, there is no weakness or numbness in any of the extremities no change in vision speech or gait. Patient underwent modified barium swallow preliminary report reveals evidence of aspiration with nectar and honey thick barium consistency, we are still awaiting the formal report. Patient is scheduled for PEG tube for feeding, he is nothing by mouth at this time, will start PPN until PEG tube is ready to be used. Patient has evidence of severe thrush will start IV Diflucan On 04/22/2021 patient alert and oriented x 3. Patient reports improvement with shortness of breath. Patient also reports improvement with oral thrush. Patient refusing central line for TPN at this time. Patient does have plans for PEG tube placement tomorrow. At this time patient is resting complete chair. Patient denies chest pain. Patient denies nausea vomiting or diarrhea. Patient denies any urinary burning or frequency On 04/23/2021 Patient was seen and examined on the medical floor, he is alert and oriented x 3 in no distress, he underwent PEG tube placement today . he denies any complaints there is no fever or chills no headache or dizziness no chest pain no shortness of breath no palpitation no cough no nausea or vomiting no abdominal pain no diarrhea no blood in the stools no burning with urination no frequency or urgency and no hematuria, there is no weakness or numbness in any of the extremities no change in vision speech or gait. Patient is complaining of pain at the PEG tube site otherwise he denies any complaints IV Tylenol and IV Dilaudid were ordered for when necessary use for pain Objective - Vital Signs Vital signs: Vital Signs Temp 96.7 F L 04/23/21 12:10 Pulse 89 04/23/21 12:10 Resp 18 04/23/21 12:10 BP 141/82 04/23/21 12:10 Pulse Ox 96 04/23/21 12:10 Intake & Output 04/22/21 04/23/21 04/23/21 18:59 06:59 18:59 Intake Total 220 Balance 220 Weight 57.1 kg Intake: IV 100 Oral 120 Other: Voiding Method Urinal Urinal - Exam In general patient is alert and oriented x 3 in no distress HEENT head normocephalic and atraumatic Neck is supple no JVD no goiter no lymphadenopathy no carotid bruit Chest examination reveals diminished lung sounds bilaterally with scattered rhonchi Cardiac exam reveals regular heart sounds S1 and S2 no gallops no murmurs Abdomen is soft nontender no organomegaly with normal bowel sounds Extremity exam reveals no edema no cyanosis or clubbing Neurological examination reveals no gross focal deficits - Labs CBC & Chem 7: 04/22/21 07:18 04/23/21 07:04 Labs: Abnormal Lab Results - Last 24 Hours (Table) 04/22/21 04/22/21 04/23/21 Range/Units 16:25 19:56 06:23 Sodium (137-145) mmol/L Chloride (98-107) mmol/L BUN (9-20) mg/dL Glucose (74-99) mg/dL POC Glucose (mg/dL) 113 H 126 H 123 H (75-99) mg/dL 04/23/21 04/23/21 Range/Units 07:04 11:52 Sodium 132 L (137-145) mmol/L Chloride 93 L (98-107) mmol/L BUN 36 H (9-20) mg/dL Glucose 118 H (74-99) mg/dL POC Glucose (mg/dL) 115 H (75-99) mg/dL Microbiology - Last 24 Hours (Table) 04/20/21 21:40 Gram Stain - Final Sputum Sputum Culture - Final Radha albicans 04/19/21 14:07 Blood Culture - Preliminary Blood No Growth after 72 hours 04/19/21 14:07 Blood Culture - Preliminary Blood No Growth after 72 hours Assessment and Plan Assessment: 1. Shortness of breath with acute hypoxic respiratory failure secondary to pneumonia. Patient was recently treated for MRSA in his sputum. At this time continue current IV antibiotics. pulmonary service is consulted. Infectious disease service is consulted. 2. History of COPD patient maintained on IV steroids 3. 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 History of coronary artery disease status post bypass grafting 5. History of esophageal strictures with frequent episodes of food regurg. 6. History of bilateral apical consolidation seen on CT of chest this is related to postradiation changes per pulmonary 7. History of hypothyroidism 8. History of GERD 9. Ex-smoker. 10. Oral thrush. Patient maintained on Diflucan DVT prophylaxis Lovenox. GI prophylaxis Protonix Pulmonary and infectious disease service is consulted GI service is consulted for EGD and PEG tube placement Tentative plans for PEG tube placement on 04/23/2021
[2021-04-23 16:35] LABS: Glucose,Whole Blood 93 mg/dL (75-99)
[2021-04-23 19:59] LABS: Glucose,Whole Blood 109 mg/dL (75-99)
[2021-04-23] MEDS: FLUCONAZOLE IN NACL,ISO-OSM 200 MG in SALINE 1 100ML.BAG IVPB SCH (20:49)
[2021-04-23] MEDS: MONTELUKAST 10 MG TAB PO SCH (21:10)
[2021-04-24] MEDS: HYDROmorphone 0.5 MG/0.5 ML SYRINGE IVP PRN ×3 (02:56→21:34)
[2021-04-24 06:15] LABS: Glucose,Whole Blood 120 mg/dL (75-99)
[2021-04-24] MEDS: INSULIN ASPART (NovoLOG) 100 UNIT/ML VIAL SQ SCH ×4 (06:23→20:25)
[2021-04-24] MEDS: LEVOTHYROXINE 125 MCG TAB PO SCH (06:41)
[2021-04-24] MEDS ORDERED: MVI, ADULT NO.4 WITH VIT K 10 ML, TRACE (CONC-1ML/DOSE) 1 ML in AMINO ACID 5%-D20W+LYTE... IV SCH ×3 (08:00)
[2021-04-24 08:38] LABS: African American GFR (CKD) >90 (>60 ml/min/1.73 sqM); Anion Gap 9 mmol/L; Blood Urea Nitrogen 37 mg/dL (9-20); Calcium 8.9 mg/dL (8.4-10.2); Carbon Dioxide 25 mmol/L (22-30); Chloride 98 mmol/L (98-107); Glucose 116 mg/dL (74-99); Magnesium 2.1 mg/dL (1.6-2.3); Non-African American GFR(CKD) 84 (>60 ml/min/1.73 sqM); Phosphorus 2.9 mg/dL (2.5-4.5); Potassium 3.6 mmol/L (3.5-5.1); Sodium 132 mmol/L (137-145)
[2021-04-24] MEDS: DOCUSATE 100 MG CAP PO SCH ×2 (08:38→21:11)
[2021-04-24] MEDS: SODIUM CHLORIDE 0.9% 1,000 ML IV SCH ×2 (09:04→18:31)
[2021-04-24] MEDS: ENOXAPARIN 40 MG/0.4 ML SYRINGE SQ SCH ×2 (09:05→09:37)
[2021-04-24] MEDS: PANTOPRAZOLE 40 MG/10 ML VIAL IVP SCH ×2 (09:05→21:11)
[2021-04-24] MEDS: methylPREDNISolone SOD SUCCI 125 MG/2 ML VIAL IV SCH ×4 (09:05→21:12)
[2021-04-24] MEDS: PIPERACILLIN-TAZOBACTAM 3.375 GM in SODIUM CHLORIDE 0.9% 100 ML IVPB SCH ×3 (09:05→23:34)
[2021-04-24] MEDS: NYSTATIN 100,000 UNIT/ML SUSP 500,000 UNIT/5 ML CUP PO SCH ×4 (09:05→21:12)
[2021-04-24] MEDS: ASPIRIN 81 MG PO SCH (09:06)
[2021-04-24] MEDS: LINEZOLID 600 MG TAB PO SCH ×2 (09:06→21:11)
[2021-04-24] MEDS: ATORVASTATIN 20 MG TAB PO SCH (09:06)
[2021-04-24] MEDS: FINASTERIDE 5 MG TAB PO SCH (09:06)
[2021-04-24 09:16] LABS: Basophils % (A) 0 %; Eosinophils % (A) 0 %; HCT 37.1 % (39.0-53.0); HGB 12.3 gm/dL (13.0-17.5); Lymphocytes # (A) 0.6 k/uL (1.0-4.8); Lymphocytes % (A) 4 %; MCH 28.1 pg (25.0-35.0); MCHC 33.1 g/dL (31.0-37.0); MCV 84.8 fL (80.0-100.0); Mean Platelet Volume 6.1; Monocytes # (A) 0.5 k/uL (0-1.0); Monocytes % (A) 3 %; Neutrophils # (A) 14.3 k/uL (1.3-7.7); Neutrophils % (A) 92 %; Platelet Count 381 k/uL (150-450); RBC 4.38 m/uL (4.30-5.90); RDW 14.4 % (11.5-15.5); WBC 15.5 k/uL (3.8-10.6)
--- NOTE | 2021-04-24 09:30 | P.PN ---
Subjective Progress Note Date: 04/24/21 This is a 75-year-old male patient who presented to the hospital with complaints of increased shortness of breath. Patient was recently admitted and discharged on 04/18/2021 for right lung pneumonia with MRSA. Patient was discharged home on Zyvox and he reports that he was taking medication as prescribed. upon discharge he was feeling well and then quickly declined throughout the next day upon exam he was found to have hypoxia with a pulse ox of 75%. Patient was placed on BiPAP and started on Zosyn and vancomycin. 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 Chest x-ray completed showing bilateral infiltrate correlate for pneumonia otherwise consider COPD with superimposed pulmonary edema. COVID test was negative. At this time patient is resting comfortably in bed. Patient reports significant improvement from yesterday. Patient is currently on 4 L nasal cannula. Pulmonary services are following. Infectious disease services also consulted. Patient remains on IV antibiotics repeat chest x-ray has been ordered. Patient denies chest pain. Patient denies nausea vomiting or diarrhea. Patient denies any urinary burning or frequency. On 04/21/2021 Patient was seen and examined on the medical floor, he is alert and oriented x 3 in no distress, he denies any complaints there is no fever or chills no headache or dizziness no chest pain no shortness of breath no palpitation no cough no nausea or vomiting no abdominal pain no diarrhea no blood in the stools no burning with urination no frequency or urgency and no hematuria, there is no weakness or numbness in any of the extremities no change in vision speech or gait. Patient underwent modified barium swallow preliminary report reveals evidence of aspiration with nectar and honey thick barium consistency, we are still awaiting the formal report. Patient is scheduled for PEG tube for feeding, he is nothing by mouth at this time, will start PPN until PEG tube is ready to be used. Patient has evidence of severe thrush will start IV Diflucan On 04/22/2021 patient alert and oriented x 3. Patient reports improvement with shortness of breath. Patient also reports improvement with oral thrush. Patient refusing central line for TPN at this time. Patient does have plans for PEG tube placement tomorrow. At this time patient is resting complete chair. Patient denies chest pain. Patient denies nausea vomiting or diarrhea. Patient denies any urinary burning or frequency On 04/23/2021 Patient was seen and examined on the medical floor, he is alert and oriented x 3 in no distress, he underwent PEG tube placement today . he denies any complaints there is no fever or chills no headache or dizziness no chest pain no shortness of breath no palpitation no cough no nausea or vomiting no abdominal pain no diarrhea no blood in the stools no burning with urination no frequency or urgency and no hematuria, there is no weakness or numbness in any of the extremities no change in vision speech or gait. Patient is complaining of pain at the PEG tube site otherwise he denies any complaints IV Tylenol and IV Dilaudid were ordered for when necessary use for pain 04/24/2021 patient is alert and oriented 3. Status post PEG tube placement. Tube feedings have been started. Per nursing staff patient having some bleeding around PEG tube site. Hemoglobin remained stable at 12.3. Patient reports significant improvement with shortness of breath. Patient denies nausea vomiting or diarrhea. Patient denies any urinary burning or frequency. Patient remains on Zosyn and Zyvox. Patient also on IV Solu-Medrol. Patient denies nausea vomiting or diarrhea. Patient denies any urinary burning or frequency. PT OT services will be consulted Objective - Vital Signs Vital signs: Vital Signs Temp 97.8 F 04/24/21 03:23 Pulse 85 04/24/21 03:23 Resp 18 04/24/21 03:23 BP 167/95 04/24/21 03:23 Pulse Ox 95 04/24/21 03:23 Intake & Output 04/23/21 04/24/21 04/24/21 18:59 06:59 18:59 Intake Total 220 1000 Output Total 900 Balance 220 100 Weight 56 kg Intake: IV 100 Intake, IV Titration 1000 Amount Fluconazole in NaCl,Iso- 100 Osm 200 mg In Saline 1 100ml.bag @ 100 mls/hr IVPB Q24H [facility] Rx#: [id number] Piperacillin-Tazobactam 3 100 .375 gm In Sodium Chloride 0.9% 100 ml @ 25 mls/hr IVPB Q8HR [facility] Rx# :[id number] Sodium Chloride 0.9% 1, 800 000 ml @ 100 mls/hr IV . Q10H [facility] Rx#:[id number] Oral 120 Output: Urine 900 Other: Voiding Method Urinal # Voids 3 - Exam In general patient is alert and oriented x 3 in no distress HEENT head normocephalic and atraumatic Neck is supple no JVD no goiter no lymphadenopathy no carotid bruit Chest examination reveals diminished lung sounds bilaterally with scattered rhonchi Cardiac exam reveals regular heart sounds S1 and S2 no gallops no murmurs Abdomen is soft nontender no organomegaly with normal bowel sounds Extremity exam reveals no edema no cyanosis or clubbing Neurological examination reveals no gross focal deficits - Labs CBC & Chem 7: 04/24/21 08:02 04/24/21 08:02 Labs: Abnormal Lab Results - Last 24 Hours (Table) 04/23/21 04/23/21 04/24/21 Range/Units 11:52 19:55 06:11 WBC (3.8-10.6) k/uL Hgb (13.0-17.5) gm/dL Hct (39.0-53.0) % Neutrophils # (1.3-7.7) k/uL Lymphocytes # (1.0-4.8) k/uL Sodium (137-145) mmol/L BUN (9-20) mg/dL Glucose (74-99) mg/dL POC Glucose (mg/dL) 115 H 109 H 120 H (75-99) mg/dL 04/24/21 04/24/21 Range/Units 08:02 08:02 WBC 15.5 H (3.8-10.6) k/uL Hgb 12.3 L (13.0-17.5) gm/dL Hct 37.1 L (39.0-53.0) % Neutrophils # 14.3 H (1.3-7.7) k/uL Lymphocytes # 0.6 L (1.0-4.8) k/uL Sodium 132 L (137-145) mmol/L BUN 37 H (9-20) mg/dL Glucose 116 H (74-99) mg/dL POC Glucose (mg/dL) (75-99) mg/dL Microbiology - Last 24 Hours (Table) 04/19/21 14:07 Blood Culture - Preliminary Blood No Growth after 96 hours 04/19/21 14:07 Blood Culture - Preliminary Blood No Growth after 96 hours 04/20/21 21:40 Gram Stain - Final Sputum Sputum Culture - Final Radha albicans Assessment and Plan Assessment: 1. Shortness of breath with acute hypoxic respiratory failure secondary to pneumonia. Patient was recently treated for MRSA in his sputum. At this time continue current IV antibiotics. pulmonary service is consulted. Infectious disease service is consulted. 2. History of COPD patient maintained on IV steroids 3. 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 History of coronary artery disease status post bypass grafting 5. Recurrent aspiration pneumonia with esophageal strictures with frequent episodes of food regurg. Status post PEG tube placement on 04/23/2021 6. History of bilateral apical consolidation seen on CT of chest this is related to postradiation changes per pulmonary 7. History of hypothyroidism 8. History of GERD 9. Ex-smoker. 10. Oral thrush. Patient maintained on Diflucan DVT prophylaxis Lovenox. GI prophylaxis Protonix Pulmonary and infectious disease service is consulted GI service is consulted for EGD and PEG tube placement Status post PEG tube placement on 04/23/2021 PT OT consulted
--- NOTE | 2021-04-24 10:24 | P.PN ---
Subjective Progress Note Date: 04/24/21 This is a 75-year-old white male patient with past medical history of tonsillar cancer with history of radical neck dissection resection and chemoradiation in 2005, esophageal strictures requiring periodic esophageal dilation, hypertension, hyperlipidemia, hypothyroidism, previous history of CVA, previous history of coronary artery disease with history of four-vessel CABG. Patient is a former smoker. He was recently hospitalized right lung pneumonia, related to MRSA. Patient was treated with vancomycin, he was improving, his chest x-ray prior to discharge was showing clearing of the right upper lobe airspace disease. He was sent home 10 day course of Zyvox 600 mg by mouth twice daily. he is usually not oxygen dependent at baseline. He has frequent episodes of regurgitation of his food related to esophageal narrowing. He was supposed to undergo esophageal dilation this coming Sunday on 04/20/2021. His daughter brought him back for evaluation today on 04/19/2021 for worsening shortness of breath, and hypoxia. Patient denied any fever, denied any chest pain, no hemoptysis, no leg swelling. Patient was significantly short of breath and she was placed on BiPAP support. Also admits to being very weak. His pulse ox was only 75% upon arrival. His chest x-ray shows bilateral infiltrates. He was placed on BiPAP support with pressures of 12 and 6 and FiO2 of 80% and his pulse ox is 99%. He is tachypneic, his tachycardia, but has been afebrile since admission. His been started on Zosyn and vancomycin. He is on nebulized bronchodilators and IV steroids. His labs have been reviewed showing white blood cell, of 19.7, hemoglobin of 12.6, d-dimer was negative at 0.58, sodium was 128, potassium is 4.1, chloride was 87, CO2 is 32, BUN was 38, creatinine is 1.24, lactic acid is 2.2, AST 60, ALT is 43, alkaline phosphatase is 87, troponin is less than 0.012, proBNP was within normal limits at 151. Tested for COVID-19 and was found to be negative. On today's evaluation on 04/20/2021 patient is breathing much easier, he is currently off BiPAP support and on 4 L of oxygen. He is breathing comfortably, lung sounds reveal some scattered rhonchi, he has been afebrile overnight, overall breathing much easier, he was maintained on nothing by mouth overnight, he is awaiting speech evaluation. He is currently on a combination of Zosyn and Zyvox. He is bringing up some thick yellow sputum. No hemoptysis, no chest discomfort. This chest x-ray shows slight improvement in the appearance of bilateral infiltrates. White count is improving on today's labs. On 04/22/2021 patient is seen in follow-up. He is awake and alert, in no acute distress, he is currently on 3 L of oxygen with pulse ox of 98%,. Did not require BiPAP support overnight. He is been started on TPN. PICC line was inserted. He remains on the combination of Zosyn, Zyvox. His sputum culture a lso showed Radha albicans and Diflucan was added. Patient was seen by the GI service and PEG tube placement was requested. Patient is scheduled for PEG tube placement tomorrow on 04/23/2021 A 2020, the patient is doing well. Brester status is stable. No further bouts of aspiration as the patient is currently nothing by mouth. He has been weaned down to 2 L about 2 by nasal cannula. He remains on examination of Zyvox and Zosyn. No fever. No chills. No respiratory distress pain no sputum production. Meanwhile, his successful PEG tube insertion was done today by gastroenterology. The patient will be started on enteral feeding for nutritional support 4 hours. He still being hydrated IV fluids. The sputum sample came back again positive for Radha. Sodium is at 132. BUN 36 with a creatinine of 1.02. Diflucan was added. IV fluids are running at the rate of 100 mL an hour of normal saline. He remains on Zosyn. He remains on Zyvox. 04/24/2021, the patient is doing well. No specific complaints and currently is on 2 L of oxygen by nasal cannula. No further bouts of aspiration. The patient underwent a PEG tube insertion and the patient was started on enteral feeding for support and currently is on Jevity at 10 mL an hour. He remains on a combination of Zosyn and Zyvox is also on Diflucan. No abdominal distention. No nausea. No vomiting. No emesis. No altered mentation. His breathing is extremely comfortable at this point in time. His breathing is nonlabored. No altered mentation. Objective - Vital Signs Vital signs: Vital Signs Temp 98.1 F 04/24/21 08:50 Pulse 80 04/24/21 08:50 Resp 18 04/24/21 08:50 BP 157/90 04/24/21 08:50 Pulse Ox 92 L 04/24/21 08:50 Intake & Output 04/23/21 04/24/21 04/24/21 18:59 06:59 18:59 Intake Total 220 1000 Output Total 900 Balance 220 100 Weight 56 kg Intake: IV 100 Intake, IV Titration 1000 Amount Fluconazole in NaCl,Iso- 100 Osm 200 mg In Saline 1 100ml.bag @ 100 mls/hr IVPB Q24H [facility] Rx#: [id number] Piperacillin-Tazobactam 3 100 .375 gm In Sodium Chloride 0.9% 100 ml @ 25 mls/hr IVPB Q8HR [facility] Rx# :[id number] Sodium Chloride 0.9% 1, 800 000 ml @ 100 mls/hr IV . Q10H [facility] Rx#:[id number] Oral 120 Output: Urine 900 Other: Voiding Method Urinal # Voids 3 - Exam GENERAL EXAM: Alert, very pleasant, 75-year-old white male, currently breathing comfortably, on 2 L of oxygen with a pulse ox of 96%, comfortable in no apparent distress. HEAD: Normocephalic/atraumatic. EYES: Normal reaction of pupils, equal size. Conjunctiva pink, sclera white. NOSE: Clear with pink turbinates. THROAT: No erythema or exudates. NECK: No masses, no JVD, no thyroid enlargement, no adenopathy. CHEST: No chest wall deformity. Symmetrical expansion. LUNGS: Equal air entry with diffuse rhonchi CVS: Regular rate and rhythm, normal S1 and S2, no gallops, no murmurs, no rubs ABDOMEN: Soft, nontender. No hepatosplenomegaly, normal bowel sounds, no guarding or rigidity. The PEG tube site is dry clean and intact. No evidence of any leak around the tube. EXTREMITIES: No clubbing, no edema, no cyanosis, 2+ pulses and upper and lower extremities. MUSCULOSKELETAL: Muscle strength and tone normal. SPINE: No scoliosis or deformity SKIN: No rashes CENTRAL NERVOUS SYSTEM: Alert and oriented -3. No focal deficits, tone is normal in all 4 extremities. PSYCHIATRIC: Alert and oriented -3. Appropriate affect. Intact judgment and insight. - Labs CBC & Chem 7: 04/24/21 08:02 04/24/21 08:02 Labs: Abnormal Lab Results - Last 24 Hours (Table) 04/23/21 04/23/21 04/24/21 Range/Units 11:52 19:55 06:11 WBC (3.8-10.6) k/uL Hgb (13.0-17.5) gm/dL Hct (39.0-53.0) % Neutrophils # (1.3-7.7) k/uL Lymphocytes # (1.0-4.8) k/uL Sodium (137-145) mmol/L BUN (9-20) mg/dL Glucose (74-99) mg/dL POC Glucose (mg/dL) 115 H 109 H 120 H (75-99) mg/dL 04/24/21 04/24/21 Range/Units 08:02 08:02 WBC 15.5 H (3.8-10.6) k/uL Hgb 12.3 L (13.0-17.5) gm/dL Hct 37.1 L (39.0-53.0) % Neutrophils # 14.3 H (1.3-7.7) k/uL Lymphocytes # 0.6 L (1.0-4.8) k/uL Sodium 132 L (137-145) mmol/L BUN 37 H (9-20) mg/dL Glucose 116 H (74-99) mg/dL POC Glucose (mg/dL) (75-99) mg/dL Microbiology - Last 24 Hours (Table) 04/19/21 14:07 Blood Culture - Preliminary Blood No Growth after 96 hours 04/19/21 14:07 Blood Culture - Preliminary Blood No Growth after 96 hours 04/20/21 21:40 Gram Stain - Final Sputum Sputum Culture - Final Radha albicans Assessment and Plan Plan: #1. Acute hypoxic respiratory failure related to recurrent aspiration pneumonia. Most recent sputum culture was positive for MRSA and subsequent sputum culture came back positive for Radha.. Currently covered with Zosyn and vancomycin and Diflucan.. COVID-19 was negative. Patient is currently on oxygen 2 L per minute nasal cannula. Clinically stable. The patient is still nothing by mouth. The patient was started on enteral feeding for nutritional support. #2. Aspiration, recurrent, post PEG tube insertion #3. Esophageal stricture, patient has frequent episodes of food regurgitation. Patient is scheduled for esophageal dilation on 04/20/2021 on an outpatient basis #4. GERD/reflux #5. Previous history of tonsillar/pharyngeal cancer, status post radical neck dissection followed by chemoradiation in 2005 #6. History of coronary artery disease status post bypass grafting #7. History of bilateral carotid artery stenosis status post stenting #8. History of bilateral apical consolidation seen on the CT of the chest, related to postradiation changes #9. Hypothyroidism #10. Former smoker Plan: Jevity 10 mL an hour via PEG Continue Zyvox Zosyn and Diflucan Oxygenation is improved and the patient is currently on 2 L, may wean him down to room air oxygen Vital signs are stable, patient is breathing easier Continue to follow
--- NOTE | 2021-04-24 10:38 | PN ---
PROGRESS NOTE DATE OF DICTATION: 04/24/2021 Patient is a 75-year-old pleasant white male admitted to the hospital with aspiration pneumonia. He underwent an EGD with PEG tube placement yesterday. This morning he denies any complaints. He reports no abdominal pain. PHYSICAL EXAMINATION: Appears comfortable. VITAL SIGNS: Stable. Blood pressure is 130/86, pulse rate 88 per minute and afebrile. HEENT EXAMINATION: Unremarkable. Conjunctivae pink. Sclerae anicteric. Oral cavity no lesions. NECK: No JVD. No lymph node enlargement. CHEST: Clear to auscultation. HEART: Regular rate and rhythm. ABDOMEN: Soft. Bowel sounds are positive. The PEG tube dressing was soaked with blood. On careful examination, there were clots underneath the bumper, which was all cleaned, and new dressing was applied. EXTREMITIES: No pedal edema. NEURO: He is alert and oriented x3. No focal deficits. LABS: No labs available at the time of this dictation. IMPRESSION: 1. Aspiration pneumonia/oropharyngeal dysphagia/proximal esophageal stricture, status post EGD with PEG tube placement yesterday. 2. Bleeding around the PEG tube site, probably from the effects of Plavix that was discontinued 3 days ago. PEG site dressing was changed. 3. Proximal esophageal radiation-induced stricture. 4. Progressive weight loss. RECOMMENDATIONS: 1. Change PEG site dressings every 6 hours. 2. Obtain CBC. 3. Start PEG tube feeds today. 4. Continue symptomatic and supportive care. 5. Continue to hold off on aspirin and Plavix for now. 6. Start the tube feeds today as per dietary recommendations. Thank you for this consultation. We will sign off today, as there is no GI coverage from tomorrow. MMODL / IJN: [id number] /
[2021-04-24 11:36] LABS: Glucose,Whole Blood 95 mg/dL (75-99)
[2021-04-24 16:55] LABS: Glucose,Whole Blood 101 mg/dL (75-99)
--- NOTE | 2021-04-24 18:39 | PN ---
PROGRESS NOTE DATE OF SERVICE: 04/24/2021 REASON FOR FOLLOWUP: Recurrent aspiration pneumonia. INTERVAL HISTORY: The patient is afebrile. The patient is feeling better, breathing comfortably. Still requiring supplemental oxygen. The patient denies having any chest pain. Occasional cough. No abdominal pain or diarrhea. PHYSICAL EXAMINATION: Blood pressure 117/69, pulse of 76, temperature 97.9. He is 91% on 3 L nasal cannula. GENERAL DESCRIPTION: General description is an elderly male up in the chair in no distress. RESPIRATORY SYSTEM: Unlabored breathing. Decreased breath sounds at the bases. No wheeze. HEART: S1, S2. Regular rate and rhythm. ABDOMEN: Soft. No tenderness. LABS: Hemoglobin is 12.3, white count 15.5, BUN of 37, creatinine 0.89. Sputum repeat is showing Radha albicans. DIAGNOSTIC IMPRESSION AND PLAN: Patient with recurrent aspiration pneumonia. Previous culture positive for MRSA. Culture at this time shows Radha albicans, so Zosyn can be transitioned to oral Augmentin on discharge and close outpatient followup. MMODL / IJN: [id number] /
[2021-04-24 20:22] LABS: Glucose,Whole Blood 103 mg/dL (75-99)
[2021-04-24] MEDS: FLUCONAZOLE IN NACL,ISO-OSM 200 MG in SALINE 1 100ML.BAG IVPB SCH (21:11)
[2021-04-24] MEDS: MONTELUKAST 10 MG TAB PO SCH (21:11)
[2021-04-25] MEDS: SODIUM CHLORIDE 0.9% 1,000 ML IV SCH ×3 (04:39→23:25)
[2021-04-25 06:29] LABS: Glucose,Whole Blood 182 mg/dL (75-99)
[2021-04-25 06:44] LABS: Basophils % (A) 0 %; Eosinophils % (A) 0 %; HGB 11.7 gm/dL (13.0-17.5); Lymphocytes # (A) 0.5 k/uL (1.0-4.8); Lymphocytes % (A) 3 %; MCH 28.1 pg (25.0-35.0); MCHC 33.4 g/dL (31.0-37.0); MCV 83.9 fL (80.0-100.0); Mean Platelet Volume 6.1; Monocytes # (A) 0.4 k/uL (0-1.0); Monocytes % (A) 3 %; Neutrophils % (A) 94 %; Platelet Count 363 k/uL (150-450); RBC 4.17 m/uL (4.30-5.90); RDW 14.4 % (11.5-15.5); WBC 13.8 k/uL (3.8-10.6)
[2021-04-25] MEDS: INSULIN ASPART (NovoLOG) 100 UNIT/ML VIAL SQ SCH ×4 (06:44→20:41)
[2021-04-25] MEDS: LEVOTHYROXINE 125 MCG TAB PO SCH (06:45)
[2021-04-25 07:02] LABS: ALT 23 U/L (4-49); AST 22 U/L (17-59); African American GFR (CKD) >90 (>60 ml/min/1.73 sqM); Albumin 2.8 g/dL (3.5-5.0); Alkaline Phosphatase 48 U/L (38-126); Anion Gap 7 mmol/L; Blood Urea Nitrogen 41 mg/dL (9-20); Calcium 8.5 mg/dL (8.4-10.2); Carbon Dioxide 26 mmol/L (22-30); Chloride 99 mmol/L (98-107); Glucose 186 mg/dL (74-99); Non-African American GFR(CKD) 85 (>60 ml/min/1.73 sqM); Phosphorus 2.5 mg/dL (2.5-4.5); Potassium 3.4 mmol/L (3.5-5.1); Sodium 132 mmol/L (137-145); Total Bilirubin 0.5 mg/dL (0.2-1.3); Total Protein 5.3 g/dL (6.3-8.2)
[2021-04-25] MEDS: IPRATROPIUM-ALBUTEROL 3 ML NEB INHALATION PRN (08:25)
[2021-04-25] MEDS: PIPERACILLIN-TAZOBACTAM 3.375 GM in SODIUM CHLORIDE 0.9% 100 ML IVPB SCH (09:15)
[2021-04-25] MEDS: PANTOPRAZOLE 40 MG/10 ML VIAL IVP SCH ×2 (09:15→20:43)
[2021-04-25] MEDS: ENOXAPARIN 40 MG/0.4 ML SYRINGE SQ SCH (09:15)
[2021-04-25] MEDS: ATORVASTATIN 20 MG TAB PO SCH (09:16)
[2021-04-25] MEDS: FINASTERIDE 5 MG TAB PO SCH (09:16)
[2021-04-25] MEDS: methylPREDNISolone SOD SUCCI 125 MG/2 ML VIAL IV SCH (09:16)
[2021-04-25] MEDS: ASPIRIN 81 MG PO SCH (09:16)
[2021-04-25] MEDS: LINEZOLID 600 MG TAB PO SCH ×2 (09:17→20:42)
[2021-04-25] MEDS: NYSTATIN 100,000 UNIT/ML SUSP 500,000 UNIT/5 ML CUP PO SCH ×4 (09:22→20:43)
[2021-04-25] MEDS: DOCUSATE 100 MG CAP PO SCH ×2 (10:31→20:31)
[2021-04-25 11:58] LABS: Glucose,Whole Blood 142 mg/dL (75-99)
--- NOTE | 2021-04-25 13:31 | P.PN ---
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 Patient is a former smoker. He was recently hospitalized right lung pneumonia, related to MRSA. Patient was treated with vancomycin, he was improving, his chest x-ray prior to discharge was showing clearing of the right upper lobe airspace disease. He was sent home 10 day course of Zyvox 600 mg by mouth twice daily. he is usually not oxygen dependent at baseline. He has frequent episodes of regurgitation of his food related to esophageal narrowing. He was supposed to undergo esophageal dilation this coming Sunday on 04/20/2021. His daughter brought him back for evaluation today on 04/19/2021 for worsening shortness of breath, and hypoxia. Patient denied any fever, denied any chest pain, no hemoptysis, no leg swelling. Patient was significantly short of breath and she was placed on BiPAP support. Also admits to being very weak. His pulse ox was only 75% upon arrival. His chest x-ray shows bilateral infiltrates. He was placed on BiPAP support with pressures of 12 and 6 and FiO2 of 80% and his pulse ox is 99%. He is tachypneic, his tachycardia, but has been afebrile since admission. His been started on Zosyn and vancomycin. He is on nebulized bronchodilators and IV steroids. His labs have been reviewed showing white blood cell, of 19.7, hemoglobin of 12.6, d-dimer was negative at 0.58, sodium was 128, potassium is 4.1, chloride was 87, CO2 is 32, BUN was 38, creatinine is 1.24, lactic acid is 2.2, AST 60, ALT is 43, alkaline phosphatase is 87, troponin is less than 0.012, proBNP was within normal limits at 151. Tested for COVID-19 and was found to be negative. On today's evaluation on 04/20/2021 patient is breathing much easier, he is currently off BiPAP support and on 4 L of oxygen. He is breathing comfortably, lung sounds reveal some scattered rhonchi, he has been afebrile overnight, overall breathing much easier, he was maintained on nothing by mouth overnight, he is awaiting speech evaluation. He is currently on a combination of Zosyn and Zyvox. He is bringing up some thick yellow sputum. No hemoptysis, no chest discomfort. This chest x-ray shows slight improvement in the appearance of bilateral infiltrates. White count is improving on today's labs. On 04/22/2021 patient is seen in follow-up. He is awake and alert, in no acute distress, he is currently on 3 L of oxygen with pulse ox of 98%,. Did not require BiPAP support overnight. He is been started on TPN. PICC line was inserted. He remains on the combination of Zosyn, Zyvox. His sputum culture also showed Radha albicans and Diflucan was added. Patient was seen by the GI service and PEG tube placement was requested. Patient is scheduled for PEG tube placement tomorrow on 04/23/2021 On 04/25/2021 patient seen in follow-up on selective care unit. He is awake and alert, in no acute distress and breathing comfortably, currently on 2 L of oxygen, he is nothing by mouth, he had a PEG tube inserted for esophageal dysphagia and for history of esophageal strictures. He remains on a combination of Zyvox, Zosyn and Diflucan. 2 feedings have been started with Jevity currently infusing at 28 mL per hour, patient is tolerating tube feedings well. No nausea or vomiting. She remains on IV fluids with 0.9 normal saline at a rate of 100 ML per hour, he does have a loose congested cough, lung sounds are positive for some scattered rhonchi, but overall he is breathing comfortably, with no evidence of acute respiratory distress, no fever or chills. Vital signs have been stable, his sputum culture revealed evidence of Radha albicans, blood cultures have shown no growth. Today's blood work has been reviewed, count is improving and is down to 13.8, hemoglobin is 11.7, sodium is 132, p otassium 3.4, BUN is 41, creatinine 0.87. Objective - Vital Signs Vital signs: Vital Signs Temp 97.8 F 04/25/21 12:00 Pulse 69 04/25/21 12:00 Resp 18 04/25/21 12:00 BP 159/85 04/25/21 12:00 Pulse Ox 91 L 04/25/21 12:00 Intake & Output 04/24/21 04/25/21 04/25/21 18:59 06:59 18:59 Intake Total 1640 0 Output Total 400 325 Balance 1240 -325 0 Weight 55 kg 55 kg Intake: Intake, IV Titration 1600 Amount Piperacillin-Tazobactam 3 200 .375 gm In Sodium Chloride 0.9% 100 ml @ 25 mls/hr IVPB Q8HR [facility] Rx# :[id number] Sodium Chloride 0.9% 1, 1400 000 ml @ 100 mls/hr IV . Q10H [facility] Rx#:[id number] Oral 0 0 Tube Feeding 40 Output: Urine 400 325 Other: Voiding Method Urinal - Exam GENERAL EXAM: Alert, very pleasant, 75-year-old white male, currently breathing comfortably, on 2 L of oxygen with a pulse ox of 96%, comfortable in no apparent distress. HEAD: Normocephalic/atraumatic. EYES: Normal reaction of pupils, equal size. Conjunctiva pink, sclera white. NOSE: Clear with pink turbinates. THROAT: No erythema or exudates. NECK: No masses, no JVD, no thyroid enlargement, no adenopathy. CHEST: No chest wall deformity. Symmetrical expansion. LUNGS: Equal air entry with diffuse rhonchi CVS: Regular rate and rhythm, normal S1 and S2, no gallops, no murmurs, no rubs ABDOMEN: Soft, nontender. No hepatosplenomegaly, normal bowel sounds, no guard ing or rigidity. EXTREMITIES: No clubbing, no edema, no cyanosis, 2+ pulses and upper and lower extremities. MUSCULOSKELETAL: Muscle strength and tone normal. SPINE: No scoliosis or deformity SKIN: No rashes CENTRAL NERVOUS SYSTEM: Alert and oriented -3. No focal deficits, tone is normal in all 4 extremities. PSYCHIATRIC: Alert and oriented -3. Appropriate affect. Intact judgment and insight. - Labs CBC & Chem 7: 04/25/21 06:07 04/25/21 06:07 Labs: Abnormal Lab Results - Last 24 Hours (Table) 04/24/21 04/24/21 04/25/21 Range/Units 16:54 20:20 06:07 WBC (3.8-10.6) k/uL RBC (4.30-5.90) m/uL Hgb (13.0-17.5) gm/dL Hct (39.0-53.0) % Neutrophils # (1.3-7.7) k/uL Lymphocytes # (1.0-4.8) k/uL Sodium 132 L (137-145) mmol/L Potassium 3.4 L (3.5-5.1) mmol/L BUN 41 H (9-20) mg/dL Glucose 186 H (74-99) mg/dL POC Glucose (mg/dL) 101 H 103 H (75-99) mg/dL Total Protein 5.3 L (6.3-8.2) g/dL Albumin 2.8 L (3.5-5.0) g/dL 04/25/21 04/25/21 04/25/21 Range/Units 06:07 06:27 11:50 WBC 13.8 H (3.8-10.6) k/uL RBC 4.17 L (4.30-5.90) m/uL Hgb 11.7 L (13.0-17.5) gm/dL Hct 35.0 L (39.0-53.0) % Neutrophils # 13.0 H (1.3-7.7) k/uL Lymphocytes # 0.5 L (1.0-4.8) k/uL Sodium (137-145) mmol/L Potassium (3.5-5.1) mmol/L BUN (9-20) mg/dL Glucose (74-99) mg/dL POC Glucose (mg/dL) 182 H 142 H (75-99) mg/dL Total Protein (6.3-8.2) g/dL Albumin (3.5-5.0) g/dL Microbiology - Last 24 Hours (Table) 04/19/21 14:07 Blood Culture - Preliminary Blood No Growth after 120 hours 04/19/21 14:07 Blood Culture - Preliminary Blood No Growth after 120 hours Assessment and Plan Plan: Assessment: #1. Acute hypoxic respiratory failure related to recurrent aspiration pneumonia. Most recent sputum culture was positive for MRSA. Currently covered with Zosyn and vancomycin. COVID-19 was negative #2. Aspiration, recurrent, patient had a modified barium swallow which showed severe pharyngeal dysphagia with deep penetration followed by silent aspiration on all trials. This is post PEG tube insertion and initiation of tube feedings. #3. Recent hospitalization for right upper lobe pneumonia related to aspiration and MRSA pneumonia. Discharge home on 04/16/2021 on 10 day course of Zyvox #4. Esophageal stricture, patient has frequent episodes of food regurgitation. Patient is scheduled for esophageal dilation on 04/20/2021 on an outpatient basis #5. GERD/reflux #6. Previous history of tonsillar/pharyngeal cancer, status post radical neck d issection followed by chemoradiation in 2005 #7. History of coronary artery disease status post bypass grafting #8. History of bilateral carotid artery stenosis status post stenting #9. History of bilateral apical consolidation seen on the CT of the chest, related to postradiation changes #10. Hypothyroidism #11. Former smoker Plan: Patient is stable, Continue weaning FiO2, currently down to 1 L Maintain aspiration precautions Tolerating tube feedings well so far Discontinue Zosyn Continue with Diflucan and Zyvox Follow-up chest x-ray was obtained and reviewed showing improvement in the appearance of bilateral infiltrates From pulmonary perspective she can be considered for discharge home with antibiotics of ID service recommendations Outpatient follow-up with Dr. Balbuena in the 1-2 days is recommended I performed a history & physical examination of the patient and discussed their management with my nurse practitioner, Jaycee Trotter. I reviewed the nurse practitioner's note and agree with the documented findings and plan of care. Lung sounds are positive for diffuse wheezes throughout the lung olsen. The findings and the impression was discussed with the patient. I attest to the documentation by the nurse practitioner. Time with Patient: Less than 30
--- NOTE | 2021-04-25 13:44 | XR ---
EXAMINATION TYPE: XR chest 1V portable DATE OF EXAM: 04/25/2021 HISTORY: Shortness of breath. COMPARISON: 04/20/2021 TECHNIQUE: Single view of the chest is submitted. FINDINGS: Demonstrated are scattered senescent parenchymal change. There is no evidence for focal infiltrate. The heart is stable. Hilar and mediastinal structures are within normal limits. Degenerative changes are seen of the dorsal spine. IMPRESSION: 1. Chronic changes without evidence for acute pulmonary disease.
--- NOTE | 2021-04-25 16:26 | PN ---
PROGRESS NOTE DATE OF SERVICE: 04/24/2021 REASON FOR FOLLOWUP: Recurrent aspiration pneumonia. INTERVAL HISTORY: The patient is afebrile. The patient is feeling better. Breathing comfortably. The patient denies having any chest pain. Occasional cough. No abdominal pain, no diarrhea. PHYSICAL EXAMINATION: Blood pressure is 134/70 with a pulse of 80, temperature 98.2. He is 96% on 2 L nasal cannula. General description is an elderly male up in the bed in no distress. Respiratory system: Unlabored breathing, decreased breath sounds, no wheeze. Heart S1, S2. Regular rate and rhythm. Abdomen soft, no tenderness. LABS: Hemoglobin is ( ), white count 13.9, BUN of 41, creatinine 0.87. Sputum showing Radha albicans. DIAGNOSTIC IMPRESSION AND PLAN: 1. Patient with recurrent aspiration pneumonia, overall improvement on Zosyn and Zyvox ( ) oral Augmentin. 2. Oral thrush, possible oral candidiasis, a short course of oral Diflucan on discharge. at the bedside, questions were answered. MMODL / IJN: [id number] /
[2021-04-25 16:58] LABS: Glucose,Whole Blood 120 mg/dL (75-99)
[2021-04-25] MEDS: methylPREDNISolone SOD SUCCI 40 MG/ML 1 ML VIAL IV SCH ×2 (17:06→23:25)
--- NOTE | 2021-04-25 17:24 | P.PN ---
Subjective Progress Note Date: 04/25/21 This is a 75-year-old male patient who presented to the hospital with complaints of increased shortness of breath. Patient was recently admitted and discharged on 04/18/2021 for right lung pneumonia with MRSA. Patient was discharged home on Zyvox and he reports that he was taking medication as prescribed. upon discharge he was feeling well and then quickly declined throughout the next day upon exam he was found to have hypoxia with a pulse ox of 75%. Patient was placed on BiPAP and started on Zosyn and vancomycin. 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 Chest x-ray completed showing bilateral infiltrate correlate for pneumonia otherwise consider COPD with superimposed pulmonary edema. COVID test was negative. At this time patient is resting comfortably in bed. Patient reports significant improvement from yesterday. Patient is currently on 4 L nasal cannula. Pulmonary services are following. Infectious disease services also consulted. Patient remains on IV antibiotics repeat chest x-ray has been ordered. Patient denies chest pain. Patient denies nausea vomiting or diarrhea. Patient denies any urinary burning or frequency. On 04/21/2021 Patient was seen and examined on the medical floor, he is alert and oriented x 3 in no distress, he denies any complaints there is no fever or chills no headache or dizziness no chest pain no shortness of breath no palpitation no cough no nausea or vomiting no abdominal pain no diarrhea no blood in the stools no burning with urination no frequency or urgency and no hematuria, there is no weakness or numbness in any of the extremities no change in vision speech or gait. Patient underwent modified barium swallow preliminary report reveals evidence of aspiration with nectar and honey thick barium consistency, we are still awaiting the formal report. Patient is scheduled for PEG tube for feeding, he is nothing by mouth at this time, will start PPN until PEG tube is ready to be used. Patient has evidence of severe thrush will start IV Diflucan On 04/22/2021 patient alert and oriented x 3. Patient reports improvement with shortness of breath. Patient also reports improvement with oral thrush. Patient refusing central line for TPN at this time. Patient does have plans for PEG tube placement tomorrow. At this time patient is resting complete chair. Patient denies chest pain. Patient denies nausea vomiting or diarrhea. Patient denies any urinary burning or frequency On 04/23/2021 Patient was seen and examined on the medical floor, he is alert and oriented x 3 in no distress, he underwent PEG tube placement today . he denies any complaints there is no fever or chills no headache or dizziness no chest pain no shortness of breath no palpitation no cough no nausea or vomiting no abdominal pain no diarrhea no blood in the stools no burning with urination no frequency or urgency and no hematuria, there is no weakness or numbness in any of the extremities no change in vision speech or gait. Patient is complaining of pain at the PEG tube site otherwise he denies any complaints IV Tylenol and IV Dilaudid were ordered for when necessary use for pain 04/24/2021 patient is alert and oriented 3. Status post PEG tube placement. Tube feedings have been started. Per nursing staff patient having some bleeding around PEG tube site. Hemoglobin remained stable at 12.3. Patient reports significant improvement with shortness of breath. Patient denies nausea vomiting or diarrhea. Patient denies any urinary burning or frequency. Patient remains on Zosyn and Zyvox. Patient also on IV Solu-Medrol. Patient denies nausea vomiting or diarrhea. Patient denies any urinary burning or frequency. PT OT services will be consulted On 04/25/2021 Patient was seen and examined on the medical floor, he is alert and oriented x 3 in no distress, he denies any complaints there is no fever or chills no headache or dizziness no chest pain no shortness of breath no palpitation no cough no nausea or vomiting no abdominal pain no diarrhea no blood in the stools no burning with urination no frequency or urgency and no hematuria, there is no weakness or numbness in any of the extremities no change in vision speech or gait. Patient was started on PEG tube feeding amount is being increased to gradually will continue to monitor Objective - Vital Signs Vital signs: Vital Signs Temp 97.7 F 04/25/21 04:00 Pulse 80 04/25/21 08:44 Resp 18 04/25/21 04:00 BP 161/86 04/25/21 04:00 Pulse Ox 96 04/25/21 04:00 Intake & Output 04/24/21 04/25/21 04/25/21 18:59 06:59 18:59 Intake Total 1640 0 Output Total 400 325 Balance 1240 -325 0 Weight 55 kg Intake: Intake, IV Titration 1600 Amount Piperacillin-Tazobactam 3 200 .375 gm In Sodium Chloride 0.9% 100 ml @ 25 mls/hr IVPB Q8HR [facility] Rx# :[id number] Sodium Chloride 0.9% 1, 1400 000 ml @ 100 mls/hr IV . Q10H [facility] Rx#:[id number] Oral 0 0 Tube Feeding 40 Output: Urine 400 325 - Exam In general patient is alert and oriented x 3 in no distress HEENT head normocephalic and atraumatic Neck is supple no JVD no goiter no lymphadenopathy no carotid bruit Chest examination reveals diminished lung sounds bilaterally with scattered rhonchi Cardiac exam reveals regular heart sounds S1 and S2 no gallops no murmurs Abdomen is soft nontender no organomegaly with normal bowel sounds Extremity exam reveals no edema no cyanosis or clubbing Neurological examination reveals no gross focal deficits - Labs CBC & Chem 7: 04/25/21 06:07 04/25/21 06:07 Labs: Abnormal Lab Results - Last 24 Hours (Table) 04/24/21 04/24/21 04/25/21 Range/Units 16:54 20:20 06:07 WBC (3.8-10.6) k/uL RBC (4.30-5.90) m/uL Hgb (13.0-17.5) gm/dL Hct (39.0-53.0) % Neutrophils # (1.3-7.7) k/uL Lymphocytes # (1.0-4.8) k/uL Sodium 132 L (137-145) mmol/L Potassium 3.4 L (3.5-5.1) mmol/L BUN 41 H (9-20) mg/dL Glucose 186 H (74-99) mg/dL POC Glucose (mg/dL) 101 H 103 H (75-99) mg/dL Total Protein 5.3 L (6.3-8.2) g/dL Albumin 2.8 L (3.5-5.0) g/dL 04/25/21 04/25/21 Range/Units 06:07 06:27 WBC 13.8 H (3.8-10.6) k/uL RBC 4.17 L (4.30-5.90) m/uL Hgb 11.7 L (13.0-17.5) gm/dL Hct 35.0 L (39.0-53.0) % Neutrophils # 13.0 H (1.3-7.7) k/uL Lymphocytes # 0.5 L (1.0-4.8) k/uL Sodium (137-145) mmol/L Potassium (3.5-5.1) mmol/L BUN (9-20) mg/dL Glucose (74-99) mg/dL POC Glucose (mg/dL) 182 H (75-99) mg/dL Total Protein (6.3-8.2) g/dL Albumin (3.5-5.0) g/dL Microbiology - Last 24 Hours (Table) 04/19/21 14:07 Blood Culture - Preliminary Blood No Growth after 120 hours 04/19/21 14:07 Blood Culture - Preliminary Blood No Growth after 120 hours Assessment and Plan Assessment: 1. Shortness of breath with acute hypoxic respiratory failure secondary to pneumonia. Patient was recently treated for MRSA in his sputum. At this time continue current IV antibiotics. pulmonary service is consulted. Infectious disease service is consulted. 2. History of COPD patient maintained on IV steroids 3. 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 History of coronary artery disease status post bypass grafting 5. Recurrent aspiration pneumonia with esophageal strictures with frequent episodes of food regurg. Status post PEG tube placement on 04/23/2021 6. History of bilateral apical consolidation seen on CT of chest this is related to postradiation changes per pulmonary 7. History of hypothyroidism 8. History of GERD 9. Ex-smoker. 10. Oral thrush. Patient maintained on Diflucan DVT prophylaxis Lovenox. GI prophylaxis Protonix Pulmonary and infectious disease service is consulted GI service is consulted for EGD and PEG tube placement Status post PEG tube placement on 04/23/2021 PT OT consulted
[2021-04-25 20:20] LABS: Glucose,Whole Blood 150 mg/dL (75-99)
[2021-04-25] MEDS: FLUCONAZOLE IN NACL,ISO-OSM 200 MG in SALINE 1 100ML.BAG IVPB SCH (20:41)
[2021-04-25] MEDS: MONTELUKAST 10 MG TAB PO SCH (20:42)
[2021-04-25] MEDS: HYDROmorphone 0.5 MG/0.5 ML SYRINGE IVP PRN (23:25)
[2021-04-26 06:05] LABS: Glucose,Whole Blood 169 mg/dL (75-99)
[2021-04-26] MEDS: INSULIN ASPART (NovoLOG) 100 UNIT/ML VIAL SQ SCH ×4 (06:33→20:29)
[2021-04-26] MEDS: LEVOTHYROXINE 125 MCG TAB PO SCH (06:33)
[2021-04-26] MEDS: DOCUSATE 100 MG CAP PO SCH ×2 (08:16→20:29)
[2021-04-26] MEDS: LINEZOLID 600 MG TAB PO SCH ×2 (08:23→20:46)
[2021-04-26] MEDS: NYSTATIN 100,000 UNIT/ML SUSP 500,000 UNIT/5 ML CUP PO SCH ×4 (08:23→20:58)
[2021-04-26] MEDS: ASPIRIN 81 MG PO SCH (08:23)
[2021-04-26] MEDS: ATORVASTATIN 20 MG TAB PO SCH (08:23)
[2021-04-26] MEDS: ENOXAPARIN 40 MG/0.4 ML SYRINGE SQ SCH (08:23)
[2021-04-26] MEDS: PANTOPRAZOLE 40 MG/10 ML VIAL IVP SCH ×2 (08:23→20:47)
[2021-04-26] MEDS: FINASTERIDE 5 MG TAB PO SCH (08:23)
[2021-04-26] MEDS: methylPREDNISolone SOD SUCCI 40 MG/ML 1 ML VIAL IV SCH (08:23)
[2021-04-26] MEDS: IPRATROPIUM-ALBUTEROL 3 ML NEB INHALATION PRN (08:44)
[2021-04-26 11:53] LABS: Glucose,Whole Blood 129 mg/dL (75-99)
[2021-04-26] MEDS: SODIUM CHLORIDE 0.9% 1,000 ML IV SCH ×2 (12:43→20:46)
--- NOTE | 2021-04-26 12:58 | P.PN ---
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 Patient is a former smoker. He was recently hospitalized right lung pneumonia, related to MRSA. Patient was treated with vancomycin, he was improving, his chest x-ray prior to discharge was showing clearing of the right upper lobe airspace disease. He was sent home 10 day course of Zyvox 600 mg by mouth twice daily. he is usually not oxygen dependent at baseline. He has frequent episodes of regurgitation of his food related to esophageal narrowing. He was supposed to undergo esophageal dilation this coming Sunday on 04/20/2021. His daughter brought him back for evaluation today on 04/19/2021 for worsening shortness of breath, and hypoxia. Patient denied any fever, denied any chest pain, no hemoptysis, no leg swelling. Patient was significantly short of breath and she was placed on BiPAP support. Also admits to being very weak. His pulse ox was only 75% upon arrival. His chest x-ray shows bilateral infiltrates. He was placed on BiPAP support with pressures of 12 and 6 and FiO2 of 80% and his pulse ox is 99%. He is tachypneic, his tachycardia, but has been afebrile since admission. His been started on Zosyn and vancomycin. He is on nebulized bronchodilators and IV steroids. His labs have been reviewed showing white blood cell, of 19.7, hemoglobin of 12.6, d-dimer was negative at 0.58, sodium was 128, potassium is 4.1, chloride was 87, CO2 is 32, BUN was 38, creatinine is 1.24, lactic acid is 2.2, AST 60, ALT is 43, alkaline phosphatase is 87, troponin is less than 0.012, proBNP was within normal limits at 151. Tested for COVID-19 and was found to be negative. On today's evaluation on 04/20/2021 patient is breathing much easier, he is currently off BiPAP support and on 4 L of oxygen. He is breathing comfortably, lung sounds reveal some scattered rhonchi, he has been afebrile overnight, overall breathing much easier, he was maintained on nothing by mouth overnight, he is awaiting speech evaluation. He is currently on a combination of Zosyn and Zyvox. He is bringing up some thick yellow sputum. No hemoptysis, no chest discomfort. This chest x-ray shows slight improvement in the appearance of bilateral infiltrates. White count is improving on today's labs. The patient is seen today 04/21/2021 follow-up on the selective care unit. He is currently sitting up in bed. Awake and alert in no acute distress. He is maintaining O2 saturations in the 90s on 3 L/m per nasal cannula. His been afebrile. Hemodynamically stable. Modified barium swallow today revealed asp iration. He is somewhat frustrated as the PEG tube is not being able to be placed today as he had Plavix. Blood culture reveals no growth. Sputum culture reveals no growth. White count 18.7. Hemoglobin 11.8. Sodium 132. Creatinine 1.03. Glucose 125. He remains on Zosyn and Zyvox. He remains on bronchodilators, IV Solu-Medrol. The patient is seen today 04/26/2021 in follow-up on the regular medical floor. She is currently sitting up in a chair at the bedside. Awake and alert in no ac dale distress. Currently being nourished with tube feedings via his PEG tube. Worsening shortness of breath, cough or congestion. Taking good O2 saturations in the 90s on room air. He's been afebrile. Sputum culture positive for Rdaha only. He remains on the Solu-Medrol, bronchodilators, Lovenox, fluconazole. 0.9% normal saline at 100 ML's per hour. Antibiotics in the form of Zyvox. Objective - Vital Signs Vital signs: Vital Signs Temp 98.0 F 04/26/21 12:00 Pulse 57 L 04/26/21 12:00 Resp 18 04/26/21 12:00 BP 151/80 04/26/21 12:00 Pulse Ox 93 L 04/26/21 12:00 Intake & Output 04/25/21 04/26/21 04/26/21 18:59 06:59 18:59 Intake Total 0 1584 Output Total 300 1425 Balance -300 159 Weight 55 kg 55.5 kg Intake: Intake, IV Titration 1200 Amount Sodium Chloride 0.9% 1, 1200 000 ml @ 100 mls/hr IV . Q10H [facility] Rx#:[id number] Oral 0 Tube Feeding 336 Other 48 Output: Urine 300 1425 Other: Voiding Method Urinal Urinal # Voids 1 3 - Exam GENERAL EXAM: Alert, very pleasant, 75-year-old male, currently breathing comfortably, on room air with a pulse ox of 94%, comfortable in no apparent distress. HEAD: Normocephalic/atraumatic. EYES: Normal reaction of pupils, equal size. Conjunctiva pink, sclera white. NOSE: Clear with pink turbinates. THROAT: No erythema or exudates. NECK: No masses, no JVD, no thyroid enlargement, no adenopathy. CHEST: No chest wall deformity. Symmetrical expansion. LUNGS: Equal air entry with diffuse rhonchi CVS: Regular rate and rhythm, normal S1 and S2, no gallops, no murmurs, no rubs ABDOMEN: PEG tube exit site clean and dry. Soft, nontender. No hepatosplenomegaly, normal bowel sounds, no guarding or rigidity. EXTREMITIES: No clubbing, no edema, no cyanosis, 2+ pulses and upper and lower extremities. MUSCULOSKELETAL: Muscle strength and tone normal. SPINE: No scoliosis or deformity SKIN: No rashes CENTRAL NERVOUS SYSTEM: Alert and oriented -3. No focal deficits, tone is normal in all 4 extremities. PSYCHIATRIC: Alert and oriented -3. Appropriate affect. Intact judgment and insight. - Labs CBC & Chem 7: 04/25/21 06:07 04/25/21 06:07 Labs: Abnormal Lab Results - Last 24 Hours (Table) 04/25/21 04/25/21 04/26/21 Range/Units 16:52 20:19 06:04 POC Glucose (mg/dL) 120 H 150 H 169 H (75-99) mg/dL 04/26/21 Range/Units 11:49 POC Glucose (mg/dL) 129 H (75-99) mg/dL Microbiology - Last 24 Hours (Table) 04/19/21 14:07 Blood Culture - Final Blood No Growth after 144 hours 04/19/21 14:07 Blood Culture - Final Blood No Growth after 144 hours Assessment and Plan Assessment: 1 Acute hypoxic respiratory failure related to recurrent aspiration pneumonia. Currently on Zyvox. COVID-19 was negative 2 Recent hospitalization for right upper lobe pneumonia related to aspiration and MRSA pneumonia. Discharge home on 04/16/2021 on 10 day course of Zyvox 3 Esophageal stricture, patient has frequent episodes of food regurgitation. 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 Mercer Remains on tube feedings via PEG tube DC IV Solu-Medrol, prednisone taper Cleared for discharge from the pulmonary standpoint I, the cosigning physician, performed a history & physical examination of the patient. Lungs sounds with diffuse rhonchi. Maintaining good O2 saturations in the 90s on room air. I discussed the assessment and plan of care with my nurse practitioner, Jolynn Sibley. I attest to the above note as dictated by her.
--- NOTE | 2021-04-26 13:50 | PN ---
PROGRESS NOTE DATE OF SERVICE: 04/26/2021 REASON FOR FOLLOWUP: Recurrent aspiration pneumonia. INTERVAL HISTORY: The patient is afebrile. The patient is feeling better, breathing comfortably on room air. Denies having any chest pain, shortness of breath or cough. No abdominal pain or diarrhea. PHYSICAL EXAMINATION: Blood pressure 138/68 with a pulse of 69, temperature 97.7. He 95% on room air. GENERAL DESCRIPTION: General description is an elderly male up in the bed in no distress. RESPIRATORY SYSTEM: Unlabored breathing. Clear to auscultation anteriorly. HEART: S1, S2. Regular rate and rhythm. ABDOMEN: Soft. No tenderness. LABS: No new labs have been obtained today. Repeat sputum showing Radha albicans. DIAGNOSTIC IMPRESSION AND PLAN: 1. Patient with recurrent aspiration pneumonia. Previous sputum was positive for MRSA, this admission Radha. The patient may short course of oral Augmentin on discharge. 2. Oropharyngeal candidiasis. Short course of Diflucan on discharge. MMODL / IJN: [id number] /
[2021-04-26 17:17] LABS: Glucose,Whole Blood 153 mg/dL (75-99)
--- NOTE | 2021-04-26 18:44 | P.PN ---
Subjective Progress Note Date: 04/26/21 This is a 75-year-old male patient who presented to the hospital with complaints of increased shortness of breath. Patient was recently admitted and discharged on 04/18/2021 for right lung pneumonia with MRSA. Patient was discharged home on Zyvox and he reports that he was taking medication as prescribed. upon discharge he was feeling well and then quickly declined throughout the next day upon exam he was found to have hypoxia with a pulse ox of 75%. Patient was placed on BiPAP and started on Zosyn and vancomycin. 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 Chest x-ray completed showing bilateral infiltrate correlate for pneumonia otherwise consider COPD with superimposed pulmonary edema. COVID test was negative. At this time patient is resting comfortably in bed. Patient reports significant improvement from yesterday. Patient is currently on 4 L nasal cannula. Pulmonary services are following. Infectious disease services also consulted. Patient remains on IV antibiotics repeat chest x-ray has been ordered. Patient denies chest pain. Patient denies nausea vomiting or diarrhea. Patient denies any urinary burning or frequency. On 04/21/2021 Patient was seen and examined on the medical floor, he is alert and oriented x 3 in no distress, he denies any complaints there is no fever or chills no headache or dizziness no chest pain no shortness of breath no palpitation no cough no nausea or vomiting no abdominal pain no diarrhea no blood in the stools no burning with urination no frequency or urgency and no hematuria, there is no weakness or numbness in any of the extremities no change in vision speech or gait. Patient underwent modified barium swallow preliminary report reveals evidence of aspiration with nectar and honey thick barium consistency, we are still awaiting the formal report. Patient is scheduled for PEG tube for feeding, he is nothing by mouth at this time, will start PPN until PEG tube is ready to be used. Patient has evidence of severe thrush will start IV Diflucan On 04/22/2021 patient alert and oriented x 3. Patient reports improvement with shortness of breath. Patient also reports improvement with oral thrush. Patient refusing central line for TPN at this time. Patient does have plans for PEG tube placement tomorrow. At this time patient is resting complete chair. Patient denies chest pain. Patient denies nausea vomiting or diarrhea. Patient denies any urinary burning or frequency On 04/23/2021 Patient was seen and examined on the medical floor, he is alert and oriented x 3 in no distress, he underwent PEG tube placement today . he denies any complaints there is no fever or chills no headache or dizziness no chest pain no shortness of breath no palpitation no cough no nausea or vomiting no abdominal pain no diarrhea no blood in the stools no burning with urination no frequency or urgency and no hematuria, there is no weakness or numbness in any of the extremities no change in vision speech or gait. Patient is complaining of pain at the PEG tube site otherwise he denies any complaints IV Tylenol and IV Dilaudid were ordered for when necessary use for pain 04/24/2021 patient is alert and oriented 3. Status post PEG tube placement. Tube feedings have been started. Per nursing staff patient having some bleeding around PEG tube site. Hemoglobin remained stable at 12.3. Patient reports significant improvement with shortness of breath. Patient denies nausea vomiting or diarrhea. Patient denies any urinary burning or frequency. Patient remains on Zosyn and Zyvox. Patient also on IV Solu-Medrol. Patient denies nausea vomiting or diarrhea. Patient denies any urinary burning or frequency. PT OT services will be consulted On 04/25/2021 Patient was seen and examined on the medical floor, he is alert and oriented x 3 in no distress, he denies any complaints there is no fever or chills no headache or dizziness no chest pain no shortness of breath no palpitation no cough no nausea or vomiting no abdominal pain no diarrhea no blood in the stools no burning with urination no frequency or urgency and no hematuria, there is no weakness or numbness in any of the extremities no change in vision speech or gait. Patient was started on PEG tube feeding amount is being increased to gradually will continue to monitor. On 04/26/2021 Patient was seen and examined on the medical floor, he is alert and oriented x 3 in no distress, he denies any complaints there is no fever or chills no headache or dizziness no chest pain no shortness of breath no palpitation no cough no nausea or vomiting no abdominal pain no diarrhea no blood in the stools no burning with urination no frequency or urgency and no hematuria, there is no weakness or numbness in any of the extremities no change in vision speech or gait. Patient is improving gradually, he is tolerating PEG tube feeding well, awaiting further recommendation from infectious disease and pulmonary, possible discharge to home in the next 1-2 days Objective - Vital Signs Vital signs: Vital Signs Temp 98.0 F 04/26/21 16:00 Pulse 86 04/26/21 16:00 Resp 18 04/26/21 16:00 BP 158/94 04/26/21 16:00 Pulse Ox 93 L 04/26/21 16:00 Intake & Output 04/25/21 04/26/21 04/26/21 18:59 06:59 18:59 Intake Total 0 1584 800 Output Total 300 1425 300 Balance -300 159 500 Weight 55 kg 55.5 kg 55.5 kg Intake: Intake, IV Titration 1200 800 Amount Fluconazole in NaCl,Iso- 800 Osm 200 mg In Saline 1 100ml.bag @ 100 mls/hr IVPB Q24H [facility] Rx#: [id number] Sodium Chloride 0.9% 1, 1200 000 ml @ 100 mls/hr IV . Q10H [facility] Rx#:[id number] Oral 0 Tube Feeding 336 Other 48 Output: Urine 300 1425 300 Other: Voiding Method Urinal Urinal # Voids 1 3 1 - Exam In general patient is alert and oriented x 3 in no distress HEENT head normocephalic and atraumatic Neck is supple no JVD no goiter no lymphadenopathy no carotid bruit Chest examination reveals diminished lung sounds bilaterally with scattered rhonchi Cardiac exam reveals regular heart sounds S1 and S2 no gallops no murmurs Abdomen is soft nontender no organomegaly with normal bowel sounds Extremity exam reveals no edema no cyanosis or clubbing Neurological examination reveals no gross focal deficits - Labs CBC & Chem 7: 04/25/21 06:07 04/25/21 06:07 Labs: Abnormal Lab Results - Last 24 Hours (Table) 04/25/21 04/26/21 04/26/21 Range/Units 20:19 06:04 11:49 POC Glucose (mg/dL) 150 H 169 H 129 H (75-99) mg/dL 04/26/21 Range/Units 17:00 POC Glucose (mg/dL) 153 H (75-99) mg/dL Microbiology - Last 24 Hours (Table) 04/19/21 14:07 Blood Culture - Final Blood No Growth after 144 hours 04/19/21 14:07 Blood Culture - Final Blood No Growth after 144 hours Assessment and Plan Assessment: 1. Shortness of breath with acute hypoxic respiratory failure secondary to pneumonia. Patient was recently treated for MRSA in his sputum. At this time continue current IV antibiotics. pulmonary service is consulted. Infectious disease service is consulted. 2. History of COPD patient maintained on IV steroids 3. 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 History of coronary artery disease status post bypass grafting 5. Recurrent aspiration pneumonia with esophageal strictures with frequent episodes of food regurg. Status post PEG tube placement on 04/23/2021 6. History of bilateral apical consolidation seen on CT of chest this is related to postradiation changes per pulmonary 7. History of hypothyroidism 8. History of GERD 9. Ex-smoker. 10. Oral thrush. Patient maintained on Diflucan DVT prophylaxis Lovenox. GI prophylaxis Protonix Pulmonary and infectious disease service is consulted GI service is consulted for EGD and PEG tube placement Status post PEG tube placement on 04/23/2021 PT OT consulted
[2021-04-26 20:13] LABS: Glucose,Whole Blood 107 mg/dL (75-99)
[2021-04-26] MEDS: FLUCONAZOLE IN NACL,ISO-OSM 200 MG in SALINE 1 100ML.BAG IVPB SCH (20:46)
[2021-04-26] MEDS: MONTELUKAST 10 MG TAB PO SCH (20:47)
[2021-04-27] MEDS: HYDROmorphone 0.5 MG/0.5 ML SYRINGE IVP PRN (00:15)
[2021-04-27 04:01] VITALS: RESP 18
[2021-04-27 06:11] LABS: Glucose,Whole Blood 107 mg/dL (75-99)
[2021-04-27] MEDS: INSULIN ASPART (NovoLOG) 100 UNIT/ML VIAL SQ SCH ×2 (06:24→13:51)
[2021-04-27] MEDS: SODIUM CHLORIDE 0.9% 1,000 ML IV SCH (06:26)
[2021-04-27] MEDS: LEVOTHYROXINE 125 MCG TAB PO SCH (06:26)
[2021-04-27] MEDS ORDERED: predniSONE 10 MG TAB PO SCH (09:00)
[2021-04-27] MEDS: DOCUSATE 100 MG CAP PO SCH (10:17)
[2021-04-27] MEDS: ASPIRIN 81 MG PO SCH (10:17)
[2021-04-27] MEDS: ATORVASTATIN 20 MG TAB PO SCH (10:17)
[2021-04-27] MEDS: NYSTATIN 100,000 UNIT/ML SUSP 500,000 UNIT/5 ML CUP PO SCH ×2 (10:17→13:52)
[2021-04-27] MEDS: FINASTERIDE 5 MG TAB PO SCH (10:17)
[2021-04-27] MEDS: LINEZOLID 600 MG TAB PO SCH (10:17)
[2021-04-27] MEDS: ENOXAPARIN 40 MG/0.4 ML SYRINGE SQ SCH (10:18)
[2021-04-27] MEDS: PANTOPRAZOLE 40 MG/10 ML VIAL IVP SCH (10:18)
[2021-04-27 11:08] VITALS: BMI 17.6
[2021-04-27 11:52] LABS: Glucose,Whole Blood 85 mg/dL (75-99)
[2021-04-27 12:10] VITALS: BP 113/72; PULSE 96; TEMP 97.7
[2021-04-27] MEDS ORDERED: AMOXIC-POT CLAV 875-125MG 1 EACH TAB PO SCH (12:15)
--- NOTE | 2021-04-27 12:16 | PN ---
PROGRESS NOTE DATE OF SERVICE: 04/27/2021 REASON FOR FOLLOWUP: Recurrent aspiration pneumonia. INTERVAL HISTORY: The patient is afebrile. The patient is feeling better, breathing comfortably. No chest pain, shortness of breath or cough. No abdominal pain or diarrhea. PHYSICAL EXAMINATION: Blood pressure 143/82 with a pulse of 80, temperature 97.9. He is % on room air. GENERAL DESCRIPTION: General description is an elderly male up in the bed in no distress. RESPIRATORY SYSTEM: Unlabored breathing. Clear to auscultation anteriorly. HEART: S1, S2. Regular rate and rhythm. ABDOMEN: Soft. No tenderness. LABS: No new labs have been obtained today. DIAGNOSTIC IMPRESSION AND PLAN: 1. Patient admitted to hospital with recurrent aspiration pneumonia. Sputum this admission has been negative for resistant pathogen, with previous episodes of MRSA pneumonia, adequately treated. Will give a short course of oral Augmentin down the PEG tube for about a week. 2. Oropharyngeal candidiasis. Continue with the Diflucan for about a week and close outpatient followup. MMODL / IJN: [id number] /
[2021-04-27 13:05] LABS: ALT 24 U/L (4-49); AST 34 U/L (17-59); African American GFR (CKD) >90 (>60 ml/min/1.73 sqM); Albumin 3.3 g/dL (3.5-5.0); Alkaline Phosphatase 67 U/L (38-126); Anion Gap 8 mmol/L; Blood Urea Nitrogen 30 mg/dL (9-20); Calcium 8.7 mg/dL (8.4-10.2); Carbon Dioxide 25 mmol/L (22-30); Chloride 98 mmol/L (98-107); Glucose 89 mg/dL (74-99); Non-African American GFR(CKD) 89 (>60 ml/min/1.73 sqM); Sodium 131 mmol/L (137-145); Total Bilirubin 0.4 mg/dL (0.2-1.3); Total Protein 6.1 g/dL (6.3-8.2)
[2021-04-27 13:14] LABS: Potassium 3.7 mmol/L (3.5-5.1)
--- NOTE | 2021-04-27 13:29 | P.DS ---
Providers Date of admission: 04/19/21 16:15 Expected date of discharge: 04/27/21 Attending physician: Kale Fischer Consults: 04/19/21 16:15 Consult Physician Routine Consulting Provider: Chikis Castaneda Consult Reason/Comments: pneumonia, resp failure Do you want consulting provider notified?: Yes 04/20/21 09:03 Consult Physician Routine Consulting Provider: Alex Gunderson Consult Reason/Comments: recent patient, pneumonia Do you want consulting provider notified?: Yes 04/20/21 12:30 Consult Physician Routine Consulting Provider: Mae Byers Consult Reason/Comments: esophagial stricture Do you want consulting provider notified?: Yes Primary care physician: Kale Fischer [facility] Course: Discharge diagnosis 1. Shortness of breath with acute hypoxic respiratory failure secondary to pneumonia. Patient was recently treated for MRSA in his sputum. At this time continue current IV antibiotics. pulmonary service is consulted. Infectious disease service is consulted. 2. History of COPD patient maintained on IV steroids 3. 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 History of coronary artery disease status post bypass grafting 5. Recurrent aspiration pneumonia with esophageal strictures with frequent episodes of food regurg. Status post PEG tube placement on 04/23/2021 6. History of bilateral apical consolidation seen on CT of chest this is related to postradiation changes per pulmonary 7. History of hypothyroidism 8. History of GERD 9. Ex-smoker. 10. Oral thrush. Patient maintained on Diflucan and nystatin 11. Herpes esophagitis. EGD biopsy stating consistent with herpes esophagitis discussed case with infectious disease recommend discharging patient on cycle beer 400 3 times a day for 10 days. Hospital course This is a 75-year-old male patient who presented to the hospital with complaints of increased shortness of breath. Patient was recently admitted and discharged on 04/18/2021 for right lung pneumonia with MRSA. Patient was discharged home on Zyvox and he reports that he was taking medication as prescribed. upon discharge he was feeling well and then quickly declined throughout the next day upon exam he was found to have hypoxia with a pulse ox of 75%. Patient was placed on BiPAP and started on Zosyn and vancomycin. Additional medical history includes tonsillar cancer with history of radial neck dissection and resection and chemoradiation in 2005, hypertension, hyperlip idemia, hypothyroidism, history of CVA, coronary artery disease with history of 4 vessels CABG, ex-smoker and esophageal strictures. Chest x-ray completed showing bilateral infiltrate correlate for pneumonia otherwise consider COPD with superimposed pulmonary edema. COVID test was negative. At this time patient is resting comfortably in bed. Patient reports significant improvement from yesterday. Patient is currently on 4 L nasal cannula. Pulmonary services are following. Infectious disease services also consulted. Patient remains on IV antibiotics repeat chest x-ray has been ordered. Patient denies chest pain. Patient denies nausea vomiting or diarrhea. Patient denies any urinary burning or frequency. On 04/21/2021 Patient was seen and examined on the medical floor, he is alert and oriented x 3 in no distress, he denies any complaints there is no fever or chills no headache or dizziness no chest pain no shortness of breath no palpitation no cough no nausea or vomiting no abdominal pain no diarrhea no blood in the stools no burning with urination no frequency or urgency and no hematuria, there is no weakness or numbness in any of the extremities no change in vision speech or gait. Patient underwent modified barium swallow preliminary report reveals evidence of aspiration with nectar and honey thick barium consistency, we are still awaiting the formal report. Patient is scheduled for PEG tube for feeding, he is nothing by mouth at this time, will start PPN until PEG tube is ready to be used. Patient has evidence of severe thrush will start IV Diflucan On 04/22/2021 patient alert and oriented x 3. Patient reports improvement with shortness of breath. Patient also reports improvement with oral thrush. Patient refusing central line for TPN at this time. Patient does have plans for PEG tube placement tomorrow. At this time patient is resting complete chair. Patient denies chest pain. Patient denies nausea vomiting or diarrhea. Patient denies any urinary burning or frequency On 04/23/2021 Patient was seen and examined on the medical floor, he is alert and oriented x 3 in no distress, he underwent PEG tube placement today . he denies any complaints there is no fever or chills no headache or dizziness no chest pain no shortness of breath no palpitation no cough no nausea or vomiting no abdominal pain no diarrhea no blood in the stools no burning with urination no frequency or urgency and no hematuria, there is no weakness or numbness in any of the extremities no change in vision speech or gait. Patient is complaining of pain at the PEG tube site otherwise he denies any complaints IV Tylenol and IV Dilaudid were ordered for when necessary use for pain 04/24/2021 patient is alert and oriented 3. Status post PEG tube placement. Tube feedings have been started. Per nursing staff patient having some bleeding around PEG tube site. Hemoglobin remained stable at 12.3. Patient reports significant improvement with shortness of breath. Patient denies nausea vomiting or diarrhea. Patient denies any urinary burning or frequency. Patient remains on Zosyn and Zyvox. Patient also on IV Solu-Medrol. Patient denies nausea vomiting or diarrhea. Patient denies any urinary burning or frequency. PT OT services will be consulted On 04/25/2021 Patient was seen and examined on the medical floor, he is alert and oriented x 3 in no distress, he denies any complaints there is no fever or chills no headache or dizziness no chest pain no shortness of breath no palpitation no cough no nausea or vomiting no abdominal pain no diarrhea no blood in the stools no burning with urination no frequency or urgency and no hematuria, there is no weakness or numbness in any of the extremities no change in vision speech or gait. Patient was started on PEG tube feeding amount is being increased to gradually will continue to monitor. On 04/26/2021 Patient was seen and examined on the medical floor, he is alert and oriented x 3 in no distress, he denies any complaints there is no fever or chills no headache or dizziness no chest pain no shortness of breath no palpitation no cough no nausea or vomiting no abdominal pain no diarrhea no blood in the stools no burning with urination no frequency or urgency and no hematuria, there is no weakness or numbness in any of the extremities no change in vision speech or gait. Patient is improving gradually, he is tolerating PEG tube feeding well, awaiting further recommendation from infectious disease and pulmonary, possible discharge to home in the next 1-2 days On 04/27/2021 patient is alert and oriented 3. Patient expresses that he is very eager to go home. Patient's is at bedside. Discussed findings of EGD biopsy revealing herpes esophagitis. Discussed case with infectious he will discharge patient on acyclovir and Augmentin. Per patient's arrangements for home health care has been arranged for PEG tube feedings. Patient denies chest pain or shortness of breath. Patient denies nausea vomiting or diarrhea. Patient denies urinary burning or frequency. Patient has been cleared for discharge from pulmonary standpoint will be discharged on prednisone taper Plan - Discharge Summary Discharge Rx Participant: No New Discharge Prescriptions: New Nystatin 100,000 Unit/ml Susp [Mycostatin Oral Susp] 500,000 unit PO QID 7 Days #210 ml predniSONE 30 mg PO DAILY 9 Days #18 tab Acyclovir [Zovirax] 400 mg PO TID 10 Days #60 cap Amoxic-Pot Clav 875-125Mg [Augmentin 875-125] 1 each PO Q12HR 7 Days #14 tab Fluconazole [Diflucan] 200 mg PO DAILY 3 Days #3 tab Continue Fluticasone Nasal [place] [Flonase Nasal [place]] 1 spray EA NOSTRIL BID PRN PRN Reason: Allergy Symptoms Levothyroxine Sodium [Synthroid] 125 mcg PO DAILY Aspirin 81 mg PO DAILY #30 Metoprolol Tartrate [Lopressor] 25 mg PO BID PRN PRN Reason: Hypertension Clopidogrel [Plavix] 75 mg PO DAILY Midodrine [ProAmatine] 5 mg PO TID PRN PRN Reason: ORTHOSTATIC HYPOTENSION Docusate [Colace] 100 mg PO BID Finasteride [Proscar] 5 mg PO DAILY Montelukast [Singulair] 10 mg PO HS Pantoprazole [Protonix] 40 mg PO BID Atorvastatin [Lipitor] 20 mg PO DAILY Albuterol Inhaler [Ventolin Hfa Inhaler] 1 - 2 puff INHALATION RT-Q6H PRN PRN Reason: Shortness Of Breath amLODIPine [Norvasc] 5 mg PO DAILY PRN PRN Reason: Hypertension Ipratropium-Albuterol Nebulize [Duoneb 0.5 mg-3 mg/3 ml Soln] 1 vial INHALATION RT-QID PRN PRN Reason: Shortness Of Breath predniSONE 5 mg PO DAILY #0 Discontinued Linezolid [Zyvox] 600 mg PO Q12H #20 tab Discharge Medication List Fluticasone Nasal [place] [Flonase Nasal [place]] 1 spray EA NOSTRIL BID PRN 02/12/17 [History] Levothyroxine Sodium [Synthroid] 125 mcg PO DAILY 02/12/17 [History] Aspirin 81 mg PO DAILY #30 03/21/17 [Rx] Metoprolol Tartrate [Lopressor] 25 mg PO BID PRN 07/02/17 [History] Clopidogrel [Plavix] 75 mg PO DAILY 09/10/18 [History] Midodrine [ProAmatine] 5 mg PO TID PRN 04/04/19 [History] Albuterol Inhaler [Ventolin Hfa Inhaler] 1 - 2 puff INHALATION RT-Q6H PRN 04/09/21 [History] Atorvastatin [Lipitor] 20 mg PO DAILY 04/09/21 [History] Docusate [Colace] 100 mg PO BID 04/09/21 [History] Finasteride [Proscar] 5 mg PO DAILY 04/09/21 [History] Ipratropium-Albuterol Nebulize [Duoneb 0.5 mg-3 mg/3 ml Soln] 1 vial INHALATION RT-QID PRN 04/09/21 [History] Montelukast [Singulair] 10 mg PO HS 04/09/21 [History] Pantoprazole [Protonix] 40 mg PO BID 04/09/21 [History] amLODIPine [Norvasc] 5 mg PO DAILY PRN 04/09/21 [History] Acyclovir [Zovirax] 400 mg PO TID 10 Days #60 cap 04/27/21 [Rx] Amoxic-Pot Clav 875-125Mg [Augmentin 875-125] 1 each PO Q12HR 7 Days #14 tab 04/27/21 [Rx] Fluconazole [Diflucan] 200 mg PO DAILY 3 Days #3 tab 04/27/21 [Rx] Nystatin 100,000 Unit/ml Susp [Mycostatin Oral Susp] 500,000 unit PO QID 7 Days #210 ml 04/27/21 [Rx] predniSONE 5 mg PO DAILY #0 04/27/21 [Rx] predniSONE 30 mg PO DAILY 9 Days #18 tab 04/27/21 [Rx] Follow up Appointment(s)/Referral(s): [facility] [NON-STAFF] - Josh Mendoza MD [STAFF PHYSICIAN] - 1-2 days Kale Fischer MD [Primary Care Provider] - 1 Week Activity/Diet/Wound Care/Special Instructions: All tube feed and supplies should be delivered this week by Sunday or per Keeley at [facility]. Nurse Please send 2 days of tube feed, dressings and syringe with patient at d/c to get him through until his supplies are delivered. Discharge Disposition: HOME WITH HOME HEALTH SERVICES
--- NOTE | 2021-04-27 13:41 | P.PN ---
Subjective Progress Note Date: 04/27/21 This is a 75-year-old white male patient with past medical history of tonsillar cancer with history of radical neck dissection resection and chemoradiation in 2005, esophageal strictures requiring periodic esophageal dilation, hypertension, hyperlipidemia, hypothyroidism, previous history of CVA, previous history of coronary artery disease with history of four-vessel CABG. Patient is a former smoker. He was recently hospitalized right lung pneumonia, related to MRSA. Patient was treated with vancomycin, he was improving, his chest x-ray prior to discharge was showing clearing of the right upper lobe airspace disease. He was sent home 10 day course of Zyvox 600 mg by mouth twice daily. he is usually not oxygen dependent at baseline. He has frequent episodes of regurgitation of his food related to esophageal narrowing. He was supposed to undergo esophageal dilation this coming Sunday on 04/20/2021. His daughter brought him back for evaluation today on 04/19/2021 for worsening shortness of breath, and hypoxia. Patient denied any fever, denied any chest pain, no hemoptysis, no leg swelling. Patient was significantly short of breath and she was placed on BiPAP support. Also admits to being very weak. His pulse ox was only 75% upon arrival. His chest x-ray shows bilateral infiltrates. He was placed on BiPAP support with pressures of 12 and 6 and FiO2 of 80% and his pulse ox is 99%. He is tachypneic, his tachycardia, but has been afebrile since admission. His been started on Zosyn and vancomycin. He is on nebulized bronchodilators and IV steroids. His labs have been reviewed showing white blood cell, of 19.7, hemoglobin of 12.6, d-dimer was negative at 0.58, sodium was 128, potassium is 4.1, chloride was 87, CO2 is 32, BUN was 38, creatinine is 1.24, lactic acid is 2.2, AST 60, ALT is 43, alkaline phosphatase is 87, troponin is less than 0.012, proBNP was within normal limits at 151. Tested for COVID-19 and was found to be negative. On today's evaluation on 04/20/2021 patient is breathing much easier, he is currently off BiPAP support and on 4 L of oxygen. He is breathing comfortably, lung sounds reveal some scattered rhonchi, he has been afebrile overnight, overall breathing much easier, he was maintained on nothing by mouth overnight, he is awaiting speech evaluation. He is currently on a combination of Zosyn and Zyvox. He is bringing up some thick yellow sputum. No hemoptysis, no chest discomfort. This chest x-ray shows slight improvement in the appearance of bilateral infiltrates. White count is improving on today's labs. The patient is seen today 04/21/2021 follow-up on the selective care unit. He is currently sitting up in bed. Awake and alert in no acute distress. He is maintaining O2 saturations in the 90s on 3 L/m per nasal cannula. His been afebrile. Hemodynamically stable. Modified barium swallow today revealed asp iration. He is somewhat frustrated as the PEG tube is not being able to be placed today as he had Plavix. Blood culture reveals no growth. Sputum culture reveals no growth. White count 18.7. Hemoglobin 11.8. Sodium 132. Creatinine 1.03. Glucose 125. He remains on Zosyn and Zyvox. He remains on bronchodilators, IV Solu-Medrol. The patient is seen today 04/26/2021 in follow-up on the regular medical floor. She is currently sitting up in a chair at the bedside. Awake and alert in no ac dale distress. Currently being nourished with tube feedings via his PEG tube. Worsening shortness of breath, cough or congestion. Taking good O2 saturations in the 90s on room air. He's been afebrile. Sputum culture positive for Radha only. He remains on the Solu-Medrol, bronchodilators, Lovenox, fluconazole. 0.9% normal saline at 100 ML's per hour. Antibiotics in the form of Zyvox. The patient is seen today 04/27/2021 on the regular medical floor. He is currently up ambulating in the room. Awake and alert in no acute distress. He is maintaining good O2 saturations in the 90s on room air. He's been afebrile. Hemodynamically stable. He is tolerating his PEG tube feedings well. Sodium 131. Potassium 3.7. Creatinine 0.77. He remains on bronchodilators, Singulair, prednisone. Antibiotics in the form of Augmentin. Fluconazole. Lovenox for DVT prophylaxis. Objective - Vital Signs Vital signs: Vital Signs Temp 97.7 F 04/27/21 11:45 Pulse 96 04/27/21 11:45 Resp 18 04/27/21 11:45 BP 113/72 04/27/21 11:45 Pulse Ox 92 L 04/27/21 11:45 Intake & Output 04/26/21 04/27/21 04/27/21 18:59 06:59 18:59 Intake Total 800 1582 Output Total 300 3150 Balance 500 -1568 Weight 55.5 kg 54.2 kg 54.2 kg Intake: Intake, IV Titration 800 1000 Amount Fluconazole in NaCl,Iso- 800 100 Osm 200 mg In Saline 1 100ml.bag @ 100 mls/hr IVPB Q24H [facility] Rx#: [id number] Sodium Chloride 0.9% 1, 900 000 ml @ 100 mls/hr IV . Q10H [facility] Rx#:[id number] Tube Feeding 252 Other 330 Output: Urine 300 3150 Other: Voiding Method Urinal Urinal # Voids 1 # Bowel Movements 1 - Exam GENERAL EXAM: Alert, 75-year-old male, currently breathing comfortably, on room air with a pulse ox of 93%, comfortable in no apparent distress. HEAD: Normocephalic/atraumatic. EYES: Normal reaction of pupils, equal size. Conjunctiva pink, sclera white. NOSE: Clear with pink turbinates. THROAT: No erythema or exudates. NECK: No masses, no JVD, no thyroid enlargement, no adenopathy. CHEST: No chest wall deformity. Symmetrical expansion. LUNGS: Equal air entry with few scattered rhonchi CVS: Regular rate and rhythm, normal S1 and S2, no gallops, no murmurs, no rubs ABDOMEN: PEG tube exit site clean and dry. Soft, nontender. No hepatosplenomegaly, normal bowel sounds, no guarding or rigidity. EXTREMITIES: No clubbing, no edema, no cyanosis, 2+ pulses and upper and lower extremities. MUSCULOSKELETAL: Muscle strength and tone normal. SPINE: No scoliosis or deformity SKIN: No rashes CENTRAL NERVOUS SYSTEM: Alert and oriented -3. No focal deficits, tone is normal in all 4 extremities. PSYCHIATRIC: Alert and oriented -3. Appropriate affect. Intact judgment and insight. - Labs CBC & Chem 7: 04/25/21 06:07 04/27/21 12:01 Labs: Abnormal Lab Results - Last 24 Hours (Table) 04/26/21 04/26/21 04/27/21 Range/Units 17:00 20:11 06:10 Sodium (137-145) mmol/L BUN (9-20) mg/dL POC Glucose (mg/dL) 153 H 107 H 107 H (75-99) mg/dL Total Protein (6.3-8.2) g/dL Albumin (3.5-5.0) g/dL 04/27/21 Range/Units 12:01 Sodium 131 L (137-145) mmol/L BUN 30 H (9-20) mg/dL POC Glucose (mg/dL) (75-99) mg/dL Total Protein 6.1 L (6.3-8.2) g/dL Albumin 3.3 L (3.5-5.0) g/dL Assessment and Plan Assessment: 1 Acute hypoxic respiratory failure related to recurrent aspiration pneumonia. Recovered and on room air. Currently on Augmentin. COVID-19 was negative 2 Recent hospitalization for right upper lobe pneumonia related to aspiration and MRSA pneumonia. Discharge home on 04/16/2021 on 10 day course of Zyvox 3 Esophageal stricture, patient has frequent episodes of food regurgitation. Patient is scheduled for esophageal dilation on 04/20/2021 on an outpatient b asis 4 GERD/reflux 5 Previous history of tonsillar/pharyngeal cancer, status post radical neck d issection followed by chemoradiation in 2005 6 History of coronary artery disease status post bypass grafting 7 History of bilateral carotid artery stenosis status post stenting 8 History of bilateral apical consolidation seen on the CT of the chest, related to postradiation changes 9 Hypothyroidism 10 Former smoker Plan: The patient was seen and evaluated by Dr. Mercer Cleared for discharge from the pulmonary standpoint Tolerating tube feedings via PEG tube I, the cosigning physician, performed a history & physical examination of the patient. Lungs sounds with few scattered rhonchi. Maintaining good O2 saturations in the 90s on room air. I discussed the assessment and plan of care with my nurse practitioner, Jolynn Sibley. I attest to the above note as dictated by her.
[2021-04-27] MEDS ORDERED: ACYCLOVIR 200 MG CAP PO SCH (16:00)
== END 2021-04-27 15:21 | disposition home health service (06) | DRG 177 ==
LOC: EC 13:18 → 3SCARD 16:15
PROVIDERS: ADMIT Internal Medicine; ATTEND Internal Medicine
PROC: 3E0G76Z Introduction of Nutritional Substance into Upper GI, Via Natural or Artificial Opening (ICD-10-PCS; 2021-04-23)
PROC: 0DH63UZ Insertion of Feeding Device into Stomach, Percutaneous Approach (ICD-10-PCS; principal; 2021-04-23 07:30)
PROC: 0DB58ZX Excision of Esophagus, Via Natural or Artificial Opening Endoscopic, Diagnostic (ICD-10-PCS; 2021-04-23 07:30)
DX: J69.0 Pneumonitis due to inhalation of food and vomit (principal); J96.01 Acute respiratory failure with hypoxia; J44.0 Chronic obstructive pulmonary disease with (acute) lower respiratory infection; K22.10 Ulcer of esophagus without bleeding; B37.0 Candidal stomatitis; B00.89 Other herpesviral infection; E87.1 Hypo-osmolality and hyponatremia; B37.89 Other sites of candidiasis; I25.10 Atherosclerotic heart disease of native coronary artery without angina pectoris; Z20.822 Contact with and (suspected) exposure to COVID-19; E03.9 Hypothyroidism, unspecified; E78.5 Hyperlipidemia, unspecified; Z87.891 Personal history of nicotine dependence; Z95.1 Presence of aortocoronary bypass graft; R13.14 Dysphagia, pharyngoesophageal phase; K22.2 Esophageal obstruction; R63.4 Abnormal weight loss; N18.2 Chronic kidney disease, stage 2 (mild); K21.9 Gastro-esophageal reflux disease without esophagitis; I12.9 Hypertensive chronic kidney disease with stage 1 through stage 4 chronic kidney disease, or unspecified chronic kidney disease; Z85.818 Personal history of malignant neoplasm of other sites of lip, oral cavity, and pharynx; Z80.1 Family history of malignant neoplasm of trachea, bronchus and lung; Z82.49 Family history of ischemic heart disease and other diseases of the circulatory system; Z79.82 Long term (current) use of aspirin; Z79.02 Long term (current) use of antithrombotics/antiplatelets; Z92.3 Personal history of irradiation; Z92.21 Personal history of antineoplastic chemotherapy; Z86.14 Personal history of Methicillin resistant Staphylococcus aureus infection; Z86.73 Personal history of transient ischemic attack (TIA), and cerebral infarction without residual deficits; Y84.2 Radiological procedure and radiotherapy as the cause of abnormal reaction of the patient, or of later complication, without mention of misadventure at the time of the procedure; E87.8 Other disorders of electrolyte and fluid balance, not elsewhere classified; H91.90 Unspecified hearing loss, unspecified ear; R13.12 Dysphagia, oropharyngeal phase; R13.13 Dysphagia, pharyngeal phase; Z79.890 Hormone replacement therapy; Z79.899 Other long term (current) drug therapy; Z85.89 Personal history of malignant neoplasm of other organs and systems; R47.02 Dysphasia; Z79.52 Long term (current) use of systemic steroids; K94.21 Gastrostomy hemorrhage
CPT/HCPCS: 36415; 43239; 43246; 71045; 71046; 74230; 80048; 80053; 82330; 83605; 83735; 83880; 84100; 84478; 84484; 85025; 85379; 85610; 85730; 87040; 87070; 87205; 87635; 88305; 93005; 94640; 94660; 94760; 96365; 96375; 99285

== ENCOUNTER → 2021-08-18 | Outpatient (CLI) | payer MEDICARE ==
[2021-08-18 20:18] LABS: % Iron Saturation 3.21 (15.00-50.00)
[2021-08-19 04:24] LABS: HIV 2 AB Non-Reactive (Non-Reactive); HIV AB P24 Non-Reactive (Non-Reactive); HIV P24 AG Non-Reactive (Non-Reactive)
== END | disposition home or self-care (01) ==
LOC: LABWHC1 11:40
PROVIDERS: ATTEND Internal Medicine
DX: D64.9 Anemia, unspecified (principal); R63.4 Abnormal weight loss; J69.0 Pneumonitis due to inhalation of food and vomit
CPT/HCPCS: 36415; 82728; 83540; 83550; 83615; 84145; 87390

== ENCOUNTER → 2021-09-27 | Outpatient (CLI) | payer MEDICARE ==
--- NOTE | 2021-09-27 13:53 | FL ---
Modified barium swallow. HISTORY: Dysphagia. Modified barium swallow was performed with the department of speech pathology. The patient was prese nted with various consistencies of barium. There is evidence for aspiration with thin liquid barium and honey thick barium. Examination was subs equently terminated. Full report is to follow from the department of speech pathology. Impression: Aspiration
== END | disposition home or self-care (01) ==
LOC: RADFLMAIN 11:27
PROVIDERS: ATTEND Family Medicine
DX: J69.0 Pneumonitis due to inhalation of food and vomit (principal)
CPT/HCPCS: 74230

== ENCOUNTER 2021-12-14 03:19 | Inpatient (IN) | payer OTHER, MEDICARE ==
[2021-12-14] MEDS ORDERED: ONDANSETRON 4 MG/2 ML VIAL IVP STA (04:07)
[2021-12-14] MEDS ORDERED: MORPHINE SULFATE 4 MG/ML SYRINGE IV STA (04:07)
[2021-12-14] MEDS ORDERED: SODIUM CHLORIDE 0.9% 1,000 ML IV ONE ×2 (04:08→06:06)
[2021-12-14] MEDS ORDERED: SODIUM CHLORIDE 0.9% 500 ML 500 ML IV STA (04:08)
[2021-12-14] MEDS ORDERED: SODIUM CHLORIDE 0.9% 1,000 ML IV STA (04:08)
--- NOTE | 2021-12-14 05:05 | XR ---
EXAMINATION TYPE: XR chest 2V DATE OF EXAM: 12/14/2021 COMPARISON: NONE HISTORY: Fever TECHNIQUE: 2 views FINDINGS: Heart is normal. There are sternal wires. Costophrenic angles are clear. There is some patc hy infiltrate in both lung olsen. This is mainly in the upper lobes. Thoracic aorta is atheromatous . IMPRESSION: Bilateral pulmonary infiltrates in the upper lobes and more on the right side. This appea rs new compared to old exam. This is consistent with new bilateral pneumonia.
[2021-12-14 05:09] LABS: Basophils % (A) 0 %; Eosinophils # (A) 0.1 k/uL (0-0.7); Eosinophils % (A) 1 %; HCT 34.7 % (39.0-53.0); HGB 11.1 gm/dL (13.0-17.5); Lymphocytes # (A) 0.4 k/uL (1.0-4.8); Lymphocytes % (A) 3 %; MCHC 32.1 g/dL (31.0-37.0); MCV 90.6 fL (80.0-100.0); Mean Platelet Volume 7.5; Monocytes # (A) 0.3 k/uL (0-1.0); Monocytes % (A) 3 %; Neutrophils # (A) 11.9 k/uL (1.3-7.7); Neutrophils % (A) 93 %; Platelet Count 256 k/uL (150-450); RBC 3.83 m/uL (4.30-5.90); RDW 15.1 % (11.5-15.5); WBC 12.8 k/uL (3.8-10.6)
[2021-12-14 05:22] LABS: Albumin 3.6 g/dL (3.5-5.0); Calcium 9.6 mg/dL (8.4-10.2); Potassium 4.2 mmol/L (3.5-5.1); Total Bilirubin 0.5 mg/dL (0.2-1.3); Total Protein 6.6 g/dL (6.3-8.2)
[2021-12-14] MEDS ORDERED: HYDROCORTISONE SUCCINATE 100 MG/2 ML VIAL IV STA (06:13)
[2021-12-14] MEDS ORDERED: MIDODRINE 5 MG TAB PO STA (06:13)
[2021-12-14] MEDS ORDERED: AZITHROMYCIN 500 MG in SODIUM CHLORIDE 0.9% 250 ML IVPB STA (06:19)
[2021-12-14] MEDS ORDERED: PIPERACILLIN-TAZOBACTAM 3.375 GM in SODIUM CHLORIDE 0.9% 100 ML IVPB STA (06:19)
[2021-12-14] MEDS ORDERED: PNEUMONIA PROTOCOL UTILIZED 1 EACH MISC PO PRN (06:19)
--- NOTE | 2021-12-14 06:47 | ED ---
Nausea/Vomiting/Diarrhea HPI - General Chief complaint: Nausea/Vomiting/Diarrhea Stated complaint: vomiting,abd pain Time Seen by Provider: 12/14/21 03:32 Source: patient, family Mode of arrival: wheelchair Limitations: no limitations - History of Present Illness Initial comments: This patient is 75-year-old man who presents with complaint of nausea and vomiting. Patient has not been tolerating fluids. He has had multiple rounds of vomiting. No hematemesis. No change in bowel movements. Patient has history of previous aspiration pneumonias. He did have a PEG tube placed to dysphagia following radiation treatment for a head and neck cancer. MD complaint: nausea, vomiting -: hour(s) Location: diffuse Severity: mild Quality: cramping Consistency: constant Improves with: none Worsens with: none Context: recent antibiotic use - Related Data Home Medications Medication Instructions Recorded Confirmed Fluticasone Nasal [place] [Flonase 2 spr EA NOSTRIL BID 02/12/17 12/14/21 Nasal [place]] Albuterol Inhaler [Ventolin Hfa 2 puff INHALATION RT-QID PRN 04/09/21 12/14/21 Inhaler] Atorvastatin [Lipitor] 20 mg PEG/G-TUBE W/SUPPER 04/09/21 12/14/21 Ipratropium-Albuterol Nebulize 3 ml INHALATION RT-QID 04/09/21 12/14/21 [Duoneb 0.5 mg-3 mg/3 ml Soln] Montelukast [Singulair] 10 mg PEG/G-TUBE W/SUPPER 04/09/21 12/14/21 Pantoprazole [Protonix] 40 mg PEG/G-TUBE BID 04/09/21 12/14/21 Aspirin 81 mg PEG/G-TUBE DAILY 09/07/21 12/14/21 Budesonide/Formoterol Fumarate 2 puff INHALATION RT-BID 09/07/21 12/14/21 [Symbicort 160-4.5 Mcg Inhaler] Jevity 1.5 Mario Liquid 1 dose PEG/G-TUBE BID@0730,1300 09/07/21 12/14/21 Jevity 2.0 Mario 1 dose PEG/G-TUBE 09/07/21 12/14/21 TID@0730,1300,1630 Midodrine HCl [ProAmatine] 10 mg PEG/G-TUBE TID PRN 09/07/21 12/14/21 Mirtazapine [Remeron] 15 mg PEG/G-TUBE HS 09/07/21 12/14/21 Sodium Chloride Tab 1 gm PEG/G-TUBE BID 09/07/21 12/14/21 polyethylene glycoL 3350 [Miralax] 17 gm PEG/G-TUBE DAILY 09/07/21 12/14/21 predniSONE 5 mg PEG/G-TUBE DIRECTED 09/07/21 12/14/21 rOPINIRole HCL [Requip] 0.25 mg PEG/G-TUBE BID 09/07/21 12/14/21 Calcium Carbonate [Calcium] 600 mg PEG/G-TUBE DAILY 12/14/21 12/14/21 Cetirizine HCl [Zyrtec] 10 mg PEG/G-TUBE DAILY 12/14/21 12/14/21 Ferrous Sulfate [Iron (65 MG 325 mg PEG/G-TUBE DAILY 12/14/21 12/14/21 Elemental)] Levothyroxine Sodium [Synthroid] 150 mcg PEG/G-TUBE DAILY 12/14/21 12/14/21 Mirabegron [Myrbetriq] 25 mg PEG/G-TUBE HS 12/14/21 12/14/21 Multivitamins, Thera [Multivitamin 1 tab PEG/G-TUBE DAILY 12/14/21 12/14/21 (formulary)] predniSONE See Taper PEG/G-TUBE DAILY 12/14/21 12/14/21 Previous Rx's Medication Instructions Recorded Ertapenem [INVanz] 1 gm IVPB Q24H #10 each 12/19/21 Allergies Allergy/AdvReac Type Severity Reaction Status Date / Time No Known Allergies Allergy Verified 12/14/21 08:46 Review of Systems ROS Statement: Those systems with pertinent positive or pertinent negative responses have been documented in the HPI. ROS Other: All systems not noted in ROS Statement are negative. Constitutional: Reports: fever, weakness Respiratory: Reports: cough. Denies: dyspnea, wheezes, hemoptysis Cardiovascular: Denies: chest pain, palpitations, edema, syncope Gastrointestinal: Reports: abdominal pain, nausea, vomiting. 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 Current lung congestion, coughing, wheezing ongoing. History of Any Multi-Drug Resistant Organisms: MRSA Date of last positivie culture/infection: 04/09/21 MDRO Source:: Sputum Past Surgical History: Coronary Bypass/CABG, Heart Catheterization, Hernia Repair, Orthopedic Surgery Additional Past Surgical History / Comment(s): 02/2017 CABG-4 vessel, angiograms, R internal caratid stented, 2005 radical neck dissection for pharyngeal cancer, L/R inguinal hernia repair, 3 sinus surgeries with benign polypectomy, colonoscopy, bilateral rotator cuff repairs. Past Anesthesia/Blood Transfusion Reactions: No Reported Reaction, Motion Sickness Past Psychological History: No Psychological Hx Reported Smoking Status: Former smoker Past Alcohol Use History: Rare Past Drug Use History: Marijuana - Past Family History Father Family Medical History: Cancer Additional Family Medical History / Comment(s): Father had lung cancer. He was a smoker. Mother Family Medical History: Congestive Heart Failure (CHF) Sister(s) Family Medical History: Cancer General Exam Limitations: no limitations General appearance: alert, cachectic Head exam: Present: atraumatic, normocephalic Eye exam: Present: normal appearance. Absent: scleral icterus, conjunctival injection ENT exam: Present: normal oropharynx Neck exam: Present: normal inspection Respiratory exam: Present: respiratory distress, rales, rhonchi. Absent: wheezes, stridor Cardiovascular Exam: Present: normal rhythm, tachycardia, systolic murmur. Absent: diastolic murmur, rubs, gallop GI/Abdominal exam: Present: soft. Absent: distended, tenderness, guarding, rebound, rigid Extremities exam: Present: normal inspection, normal capillary refill. Absent: pedal edema, calf tenderness Back exam: Present: normal inspection. Absent: CVA tenderness (R), CVA tenderness (L) Neurological exam: Present: alert Skin exam: Present: warm, dry, intact, normal color. Absent: rash Course Vital Signs 12/14/21 12/14/21 12/14/21 03:25 04:34 05:15 Temperature 100.6 F H Pulse Rate 126 H 112 H 102 H Respiratory 36 H 20 20 Rate Blood Pressure 131/73 93/55 99/58 O2 Sat by Pulse 83 L 93 L 94 L Oximetry 12/14/21 12/14/21 12/14/21 06:15 06:46 07:00 Temperature Pulse Rate 101 H 100 104 H Respiratory 20 18 19 Rate Blood Pressure 76/48 107/61 144/77 O2 Sat by Pulse 96 94 L 96 Oximetry Medical Decision Making - Medical Decision Making This patient is 75-year-old man presenting with nausea and vomiting, found to have fever and bilateral upper infiltrates on the chest x-ray. Patient be admitted to treat pneumonia. He is given fluid boluses and as he is a daily steroid user and Midodrin user also given dose of Midodrin and of cortisol. The blood pressure has improved. - Lab Data Result diagrams: 12/15/21 06:18 12/15/21 06:18 Lab Results 12/14/21 12/14/21 12/14/21 Range/Units 04:05 04:05 04:05 WBC 12.8 H (3.8-10.6) k/uL RBC 3.83 L (4.30-5.90) m/uL Hgb 11.1 L (13.0-17.5) gm/dL Hct 34.7 L (39.0-53.0) % MCV 90.6 (80.0-100.0) fL MCH 29.0 (25.0-35.0) pg MCHC 32.1 (31.0-37.0) g/dL RDW 15.1 (11.5-15.5) % Plt Count 256 (150-450) k/uL MPV 7.5 Neutrophils % 93 % Lymphocytes % 3 % Monocytes % 3 % Eosinophils % 1 % Basophils % 0 % Neutrophils # 11.9 H (1.3-7.7) k/uL Lymphocytes # 0.4 L (1.0-4.8) k/uL Monocytes # 0.3 (0-1.0) k/uL Eosinophils # 0.1 (0-0.7) k/uL Basophils # 0.0 (0-0.2) k/uL Sodium 137 (137-145) mmol/L Potassium 4.2 (3.5-5.1) mmol/L Chloride 99 (98-107) mmol/L Carbon Dioxide 28 (22-30) mmol/L Anion Gap 10 mmol/L BUN 67 H (9-20) mg/dL Creatinine 1.52 H (0.66-1.25) mg/dL Est GFR (CKD-EPI)AfAm 51 (>60 ml/min/1.73 sqM) Est GFR (CKD-EPI)NonAf 44 (>60 ml/min/1.73 sqM) Glucose 115 H (74-99) mg/dL Calcium 9.6 (8.4-10.2) mg/dL Total Bilirubin 0.5 (0.2-1.3) mg/dL AST 33 (17-59) U/L ALT 33 (4-49) U/L Alkaline Phosphatase 69 (38-126) U/L NT-Pro-B Natriuret Pep 385 pg/mL Total Protein 6.6 (6.3-8.2) g/dL Albumin 3.6 (3.5-5.0) g/dL Amylase 78 (30-110) U/L Lipase 100 (23-300) U/L Influenza Type A (PCR) (Not Detectd) Influenza Type B (PCR) (Not Detectd) RSV (PCR) (Not Detectd) SARS-CoV-2 (PCR) (Not Detectd) 12/14/21 Range/Units 04:05 WBC (3.8-10.6) k/uL RBC (4.30-5.90) m/uL Hgb (13.0-17.5) gm/dL Hct (39.0-53.0) % MCV (80.0-100.0) fL MCH (25.0-35.0) pg MCHC (31.0-37.0) g/dL RDW (11.5-15.5) % Plt Count (150-450) k/uL MPV Neutrophils % % Lymphocytes % % Monocytes % % Eosinophils % % Basophils % % Neutrophils # (1.3-7.7) k/uL Lymphocytes # (1.0-4.8) k/uL Monocytes # (0-1.0) k/uL Eosinophils # (0-0.7) k/uL Basophils # (0-0.2) k/uL Sodium (137-145) mmol/L Potassium (3.5-5.1) mmol/L Chloride (98-107) mmol/L Carbon Dioxide (22-30) mmol/L Anion Gap mmol/L BUN (9-20) mg/dL Creatinine (0.66-1.25) mg/dL Est GFR (CKD-EPI)AfAm (>60 ml/min/1.73 sqM) Est GFR (CKD-EPI)NonAf (>60 ml/min/1.73 sqM) Glucose (74-99) mg/dL Calcium (8.4-10.2) mg/dL Total Bilirubin (0.2-1.3) mg/dL AST (17-59) U/L ALT (4-49) U/L Alkaline Phosphatase (38-126) U/L NT-Pro-B Natriuret Pep pg/mL Total Protein (6.3-8.2) g/dL Albumin (3.5-5.0) g/dL Amylase (30-110) U/L Lipase (23-300) U/L Influenza Type A (PCR) Not Detected (Not Detectd) Influenza Type B (PCR) Not Detected (Not Detectd) RSV (PCR) Not Detected (Not Detectd) SARS-CoV-2 (PCR) Not Detected (Not Detectd) Critical Care Time Critical Care Time: Yes (30 minutes) Disposition Clinical Impression: Pneumonia, Acute kidney injury, Hypotension Disposition: ADMITTED IP TO THIS [facility] Condition: Serious
[2021-12-14] MEDS ORDERED: MIDODRINE 5 MG TAB PEG/G-TUBE PRN (11:34)
[2021-12-14] MEDS ORDERED: VANCOMYCIN IV PER PHARMACY 1 EACH MISC MISCELLANE PRN (11:37)
--- NOTE | 2021-12-14 11:44 | P.HPIM ---
History of Present Illness Chief Complaint: Diarrhea/vomiting Patient is a 75-year-old male with a past medical history significant for COPD, hypothyroidism, hyperlipidemia the presence of the hospital complaining of intractable nausea and vomiting associated with some shortness of breath. Patient states that he does not use auction at home however has been having some shortness of breath for the past few days and progressively getting worse. He also complains of a productive cough that is yellowish in color and approximately 1-2 teaspoons. He denies any intractable nausea vomiting today during my examination or any abdominal discomfort. Patient's vital signs in the emergency department were tachycardic at 104, normal tensive, 94% on 5 L nasal cannula and afebrile, CBC reviewed leukocytosis 12.8, creatinine 1.5 to, BUN 67 and he was found to be negative for influenza A COVID-19 pneumonia. Chest x-ray was completed which showed bilateral pneumonia infiltrates in the upper lobe on the right this seems to be new compared to old exam. Patient also states that he has been having recurrent bacterial pneumonia infections. Past Medical History Past Medical History: Coronary Artery Disease (CAD), Cancer, Chest Pain / Angina, COPD, CVA/TIA, GERD/Reflux, Hearing Disorder / Deafness, Hyperlipidemia, Hypertension, Pneumonia, Renal Disease, Respiratory Disorder, Syncope, Thyroid Disorder, Vascular Disorder Additional Past Medical History / Comment(s): 2006 Tonsill/pharyngeal cancer w/ surgery/chemo/radiation, ongoing dysphagia, aspiration pneumonias, esophageal s trictures, PEG tube/npo, home oxygen at 3L/[place] ATC, bilateral carotid artery disease w/ stent R side, CVA per MRI, CKD stage II, CAD with recent CABG w/ post op anemia requiring blood transfusion, diverticular dx, vertigo when first stands, constipation, hypothyroid, [place] beena aides, moderate protein calorie malnutrition, cachexia. History of Any Multi-Drug Resistant Organisms: MRSA Date of last positivie culture/infection: 04/09/21 MDRO Source:: Sputum Past Surgical History: Coronary Bypass/CABG, Heart Catheterization, Hernia Repair, Orthopedic Surgery, Tonsillectomy Additional Past Surgical History / Comment(s): 02/2017 CABG-4 vessel, angiograms, R internal caratid stented, 2005 radical neck dissection for pharyngeal cancer, L/R inguinal hernia repair, 3 sinus surgeries with benign polypectomy, colonoscopy, EGDs with dilationsbilateral rotator cuff repairs. Past Anesthesia/Blood Transfusion Reactions: Motion Sickness Smoking Status: Current some day smoker - Past Family History Father Family Medical History: Cancer Additional Family Medical History / Comment(s): Father had lung cancer. He was a smoker. Mother Family Medical History: Congestive Heart Failure (CHF) Sister(s) Family Medical History: Cancer Medications and Allergies Home Medications Medication Instructions Recorded Confirmed Type Fluticasone Nasal [place] [Flonase 2 spr EA NOSTRIL BID 02/12/17 12/14/21 History Nasal [place]] Albuterol Inhaler [Ventolin Hfa 2 puff INHALATION RT-QID PRN 04/09/21 12/14/21 History Inhaler] Atorvastatin [Lipitor] 20 mg PEG/G-TUBE W/SUPPER 04/09/21 12/14/21 History Ipratropium-Albuterol Nebulize 3 ml INHALATION RT-QID 04/09/21 12/14/21 History [Duoneb 0.5 mg-3 mg/3 ml Soln] Montelukast [Singulair] 10 mg PEG/G-TUBE W/SUPPER 04/09/21 12/14/21 History Pantoprazole [Protonix] 40 mg PEG/G-TUBE BID 04/09/21 12/14/21 History Aspirin 81 mg PEG/G-TUBE DAILY 09/07/21 12/14/21 History Budesonide/Formoterol Fumarate 2 puff INHALATION RT-BID 09/07/21 12/14/21 History [Symbicort 160-4.5 Mcg Inhaler] Jevity 1.5 Mario Liquid 1 dose PEG/G-TUBE BID@0730,1300 09/07/21 12/14/21 History Jevity 2.0 Mario 1 dose PEG/G-TUBE 09/07/21 12/14/21 History TID@0730,1300,1630 Midodrine HCl [ProAmatine] 10 mg PEG/G-TUBE TID PRN 09/07/21 12/14/21 History Mirtazapine [Remeron] 15 mg PEG/G-TUBE HS 09/07/21 12/14/21 History Sodium Chloride Tab 1 gm PEG/G-TUBE BID 09/07/21 12/14/21 History polyethylene glycoL 3350 [Miralax] 17 gm PEG/G-TUBE DAILY 09/07/21 12/14/21 History predniSONE 5 mg PEG/G-TUBE DIRECTED 09/07/21 12/14/21 History rOPINIRole HCL [Requip] 0.25 mg PEG/G-TUBE BID 09/07/21 12/14/21 History Calcium Carbonate [Calcium] 600 mg PEG/G-TUBE DAILY 12/14/21 12/14/21 History Cetirizine HCl [Zyrtec] 10 mg PEG/G-TUBE DAILY 12/14/21 12/14/21 History Ciprofloxacin HCl [Cipro] 500 mg PEG/G-TUBE DIRECTED 12/14/21 12/14/21 History Ferrous Sulfate [Feosol] 325 mg PEG/G-TUBE DAILY 12/14/21 12/14/21 History Levothyroxine Sodium [Synthroid] 150 mcg PEG/G-TUBE DAILY 12/14/21 12/14/21 History Mirabegron [Myrbetriq] 25 mg PEG/G-TUBE HS 12/14/21 12/14/21 History Multivitamins, Thera [Multivitamin 1 tab PEG/G-TUBE DAILY 12/14/21 12/14/21 History (formulary)] predniSONE See Taper PEG/G-TUBE DAILY 12/14/21 12/14/21 History Allergies Allergy/AdvReac Type Severity Reaction Status Date / Time No Known Allergies Allergy Verified 12/14/21 08:46 Physical Exam Vitals: Vital Signs Temp Pulse Pulse Resp BP BP Pulse Ox 12/14/21 10:26 98.4 F 93 18 146/78 94 L 12/14/21 07:00 104 H 19 144/77 96 12/14/21 06:46 100 18 107/61 94 L 12/14/21 06:15 101 H 20 76/48 96 12/14/21 05:15 102 H 20 99/58 94 L 12/14/21 04:34 112 H 20 93/55 93 L 12/14/21 03:25 100.6 F H 126 H 36 H 131/73 83 L Intake and Output 12/13/21 12/14/21 12/14/21 22:59 06:59 14:59 Other: Weight 58.967 kg 58.967 kg Gen. patient is slightly uncomfortable currently on 5 L nasal cannula. Cardiac normal S1/S2, tachycardia Respiratory some wheezing appreciated with rhonchi bilateral air entry Abdomen soft, nontender Extremity no pitting edema noted Results CBC & Chem 7: 12/14/21 04:05 12/14/21 04:05 Labs: Abnormal Lab Results - Last 24 Hours (Table) 12/14/21 12/14/21 Range/Units 04:05 04:05 WBC 12.8 H (3.8-10.6) k/uL RBC 3.83 L (4.30-5.90) m/uL Hgb 11.1 L (13.0-17.5) gm/dL Hct 34.7 L (39.0-53.0) % Neutrophils # 11.9 H (1.3-7.7) k/uL Lymphocytes # 0.4 L (1.0-4.8) k/uL BUN 67 H (9-20) mg/dL Creatinine 1.52 H (0.66-1.25) mg/dL Glucose 115 H (74-99) mg/dL Thrombosis Risk Factor Assmnt - Choose All That Apply Any of the Below Risk Factors Present?: Yes Each Factor Represents 1 point: Serious lung disease incl. pneumonia (< 1month) Other Risk Factors: Yes Each Risk Factor Represents 2 Points: Malignancy Each Risk Factor Represents 3 Points: Age 75 years or older Other congenital or acquired thrombophilia - If yes, enter type in comment: No Thrombosis Risk Factor Assessment Total Risk Factor Score: 6 Thrombosis Risk Factor Assessment Level: High Risk Assessment and Plan Assessment: Assessment/plan: #1 acute hypoxia respiratory distress secondary to community-acquired pneumonia #2 coronary artery disease status post CABG #3 COPD #4 hearing impairment #5 chronic kidney disease #6 hypothyroidism #7 history of throat cancer in 2005 with radical neck dissection and rad iochemotherapy #8 status post PEG placement #9 history of CVA. Plan: -Admit to medicine for close monitoring -Aspiration/fall precaution/HB 30 -Continue with Zosyn and vancomycin and azithromycin for atypical coverage -Infectious disease consult as the patient is known to this service and history of recurrent pneumonia -Chest x-ray was reviewed -Continue with DuoNeb's and breathing treatments around the clock -Obtain blood cultures and sputum culture -Nutrition medicine consulted for PEG tube management. -Obtain chest x-ray tomorrow -DVT prophylaxis
[2021-12-14] MEDS ORDERED: NON FORMULARY DRUG (Jevity 1.5 Cal Liquid 1,000 ML Ml) PEG/G-TUBE SCH (13:00)
[2021-12-14] MEDS ORDERED: JEVITY CAL PEG/G-TUBE SCH (13:00)
[2021-12-14] MEDS ORDERED: VANCOMYCIN 1,250 MG in SODIUM CHLORIDE 0.9% 250 ML IVPB ONE (13:00)
--- NOTE | 2021-12-14 13:46 | CDI ---
Documentation Clarification Form Date: 12/14/2021 01:20:54 PM From: Rahel Roberts RN CCDS Admit Date: 12/14/2021 06:19:00 AM Patient Name: Tenzin Burgos Visit Number: [id number] Discharge Date: ATTENTION: The Clinical Documentation Specialists (CDI) and [facility] Coding Staff appreciate your assistance in clarifying documentation. Please respond to the clarification below the line at the bottom and electronically sign. The CDI & [facility] Coding staff will review the response and follow-up if needed. Please note: Queries are made part of the Legal Health Record. If you have any questions, please contact the author of this message via ITS. Dr. Brown Your patient has been diagnosed with Respiratory distress, 12/14, H&P. Based on this information and the findings below, is there an additional diagnosis that is clinically appropriate for this patient? History/Risk Factors: 75-year-old male presents to the ED with nausea, vomiting and shortness of breath. Patient has productive cough. Patient stated he has been having recurrent bacterial infections. Medical History: CAD; COPD, Aspiration pneumonia and home oxygen at 3L ATC. Current smoker. Home oxygen: 3L ATC Clinical Indicators: Vital signs: 12/14 03:25am B/P 131/73; HR 126; Temp 100.6 F Oral; RR 36; SpO2 83% room air. 12/14 4:34am B/P 93/55; HR 112; RR 20; SpO2 93% 3L nasal cannula 12/14 0700am B/P 144/77; HR 104; RR 19; SpO2 96% 5L nasal cannula Lung/Breathing assessment: 12/14 H&P: Some wheezing appreciated with rhonchi bilateral air entry. CXR: 12/14 Bilateral pulmonary infiltrates in the upper lobes and more on the right side. Consistent with bilateral pneumonia Treatment: 12/14 to current Symbicort 160-4.5 MCG Inhaler. Breathing TX: 12/14 to current Duoneb 0.5 Mg 3Mg / 3 Ml Soln RT QID LEIDA. O2 nasal cannula 3L to 5L Is there an additional diagnosis that is clinically appropriate for this patient? [ ] Acute Hypoxic Respiratory Failure (pO2 <60 mm Hg or SpO2 <91% on room air) [ xx ] Acute on Chronic Hypoxic Respiratory Failure [ ] Other Diagnosis, please specify [ ] Unable to determine (Template Last Revised: October 2020) MTDD
[2021-12-14 13:52] LABS: Appearance,Urine Clear (Clear); Bilirubin,Urine Negative (Negative); Blood,Urine Negative (Negative); Color,Urine Yellow; Glucose,Urine (UA) Negative (Negative); Hyaline Casts,Urine 1 /lpf (0-2); Ketones,Urine Negative (Negative); Leukocyte Esterase,Urine Negative (Negative); Mucus,Urine Rare /hpf; Nitrite,Urine Negative (Negative); PH, Urine 5.5 (5.0-8.0); Protein,Urine 1+ (Negative); RBC,Urine 3 /hpf (0-5); Urobilinogen,Urine <2.0 mg/dL (<2.0); WBC,Urine 1 /hpf (0-5)
[2021-12-14] MEDS: IPRATROPIUM-ALBUTEROL 3 ML NEB INHALATION SCH ×3 (14:25→20:49)
[2021-12-14] MEDS ORDERED: PIPERACILLIN-TAZOBACTAM 3.375 GM in SODIUM CHLORIDE 0.9% 100 ML IVPB SCH (16:00)
[2021-12-14] MEDS: ATORVASTATIN 20 MG TAB PEG/G-TUBE SCH (18:03)
[2021-12-14] MEDS: MONTELUKAST 10 MG TAB PEG/G-TUBE SCH (18:03)
[2021-12-14] MEDS: PIPERACILLIN-TAZOBACTAM 3.375 GM in SODIUM CHLORIDE 0.9% 100 ML IVPB SCH (20:31)
[2021-12-14] MEDS: SYMBICORT 160-4.5 MCG INHALER INHALATION SCH (20:49)
[2021-12-14] MEDS ORDERED: NON FORMULARY DRUG (Mirabegron [Myrbetriq] 25 MG Tablet) PEG/G-TUBE SCH (21:00)
[2021-12-14] MEDS: PANTOPRAZOLE 40 MG TABLET PO SCH (21:50)
[2021-12-14] MEDS: MIRTAZAPINE 15 MG TAB PEG/G-TUBE SCH (21:50)
[2021-12-14] MEDS: FLUTICASONE 50MCG/SPRAY NASAL 16GM EA NOSTRIL SCH (22:37)
--- NOTE | 2021-12-15 00:14 | P.CONS ---
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 Denies having any pleuritic chest pain. Denies having any nausea or vomiting no abdominal pain no diarrhea on presentation to the hospital the patient did have fever 100.6 F patient did have white count of 12.8 with a left shift BUN/creatinine was mildly elevated urine is negative influenza COVID and RSV PCR were negative patient did have a chest x-ray bilateral pulm infiltrate in the upper lobes more on the right side this is new compared to old exam patient was admitted to the hospital started on Zosyn and v ancomycin infectious disease was consulted for further management of antibiotic therapy Review of Systems Positive point has been mentioned in the HPI rest of the systems are negative Past Medical History Past Medical History: Coronary Artery Disease (CAD), Cancer, Chest Pain / Angina, COPD, CVA/TIA, GERD/Reflux, Hearing Disorder / Deafness, Hyperlipidemia, Hypertension, Pneumonia, Renal Disease, Respiratory Disorder, Syncope, Thyroid Disorder, Vascular Disorder Additional Past Medical History / Comment(s): 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 History of Any Multi-Drug Resistant Organisms: MRSA Year Discovered:: 04/09/21 MDRO Source:: Sputum Past Surgical History: Coronary Bypass/CABG, Heart Catheterization, Hernia Repair, Orthopedic Surgery, Tonsillectomy Additional Past Surgical History / Comment(s): 02/2017 CABG-4 vessel, angiograms, R internal caratid stented, 2006 radical neck dissection for pharyngeal cancer, L/R inguinal hernia repair, 3 sinus surgeries with benign polypectomy, colonoscopy, EGDs with dilationsbilateral rotator cuff repairs. Past Anesthesia/Blood Transfusion Reactions: Motion Sickness Smoking Status: Current some day smoker - Past Family History Father Family Medical History: Cancer Additional Family Medical History / Comment(s): Father had lung cancer. He was a smoker. Mother Family Medical History: Congestive Heart Failure (CHF) Sister(s) Family Medical History: Cancer Medications and Allergies Home Medications Medication Instructions Recorded Confirmed Type Fluticasone Nasal Bowers [Flonase 2 spr EA NOSTRIL BID 02/12/17 12/14/21 History Nasal Bowers] Albuterol Inhaler [Ventolin Hfa 2 puff INHALATION RT-QID PRN 04/09/21 12/14/21 History Inhaler] Atorvastatin [Lipitor] 20 mg PEG/G-TUBE W/SUPPER 04/09/21 12/14/21 History Ipratropium-Albuterol Nebulize 3 ml INHALATION RT-QID 04/09/21 12/14/21 History [Duoneb 0.5 mg-3 mg/3 ml Soln] Montelukast [Singulair] 10 mg PEG/G-TUBE W/SUPPER 04/09/21 12/14/21 History Pantoprazole [Protonix] 40 mg PEG/G-TUBE BID 04/09/21 12/14/21 History Aspirin 81 mg PEG/G-TUBE DAILY 09/07/21 12/14/21 History Budesonide/Formoterol Fumarate 2 puff INHALATION RT-BID 09/07/21 12/14/21 History [Symbicort 160-4.5 Mcg Inhaler] Jevity 1.5 Mario Liquid 1 dose PEG/G-TUBE BID@0730,1300 09/07/21 12/14/21 History Jevity 2.0 Mario 1 dose PEG/G-TUBE 09/07/21 12/14/21 History TID@0730,1300,1630 Midodrine HCl [ProAmatine] 10 mg PEG/G-TUBE TID PRN 09/07/21 12/14/21 History Mirtazapine [Remeron] 15 mg PEG/G-TUBE HS 09/07/21 12/14/21 History Sodium Chloride Tab 1 gm PEG/G-TUBE BID 09/07/21 12/14/21 History polyethylene glycoL 3350 [Miralax] 17 gm PEG/G-TUBE DAILY 09/07/21 12/14/21 History predniSONE 5 mg PEG/G-TUBE DIRECTED 09/07/21 12/14/21 History rOPINIRole HCL [Requip] 0.25 mg PEG/G-TUBE BID 09/07/21 12/14/21 History Calcium Carbonate [Calcium] 600 mg PEG/G-TUBE DAILY 12/14/21 12/14/21 History Cetirizine HCl [Zyrtec] 10 mg PEG/G-TUBE DAILY 12/14/21 12/14/21 History Ciprofloxacin HCl [Cipro] 500 mg PEG/G-TUBE DIRECTED 12/14/21 12/14/21 History Ferrous Sulfate [Feosol] 325 mg PEG/G-TUBE DAILY 12/14/21 12/14/21 History Levothyroxine Sodium [Synthroid] 150 mcg PEG/G-TUBE DAILY 12/14/21 12/14/21 History Mirabegron [Myrbetriq] 25 mg PEG/G-TUBE HS 12/14/21 12/14/21 History Multivitamins, Thera [Multivitamin 1 tab PEG/G-TUBE DAILY 12/14/21 12/14/21 History (formulary)] predniSONE See Taper PEG/G-TUBE DAILY 12/14/21 12/14/21 History Allergies Allergy/AdvReac Type Severity Reaction Status Date / Time No Known Allergies Allergy Verified 12/14/21 08:46 Physical Exam Vitals: Vital Signs Temp Pulse Pulse Resp BP BP Pulse Ox 12/14/21 10:26 98.4 F 93 18 146/78 94 L 12/14/21 07:00 104 H 19 144/77 96 12/14/21 06:46 100 18 107/61 94 L 12/14/21 06:15 101 H 20 76/48 96 12/14/21 05:15 102 H 20 99/58 94 L 12/14/21 04:34 112 H 20 93/55 93 L 12/14/21 03:25 100.6 F H 126 H 36 H 131/73 83 L Intake and Output 12/13/21 12/14/21 12/14/21 22:59 06:59 14:59 Other: Weight 58.967 kg 58.967 kg GENERAL DESCRIPTION: An elderly male lying in bed, no distress. No tachypnea or accessory muscle of respiration use. HEENT: Shows Pallor , no scleral icterus. Oral mucous membrane is dry. No pharyngeal erythema or thrush NECK: Trachea central, no thyromegaly. LUNGS: Unlabored breathing. Decreased breath sound at the base. No wheeze or crackle. HEART: S1, S2, regular rate and rhythm. No loud murmur ABDOMEN: Soft, no tenderness , guarding or rigidity, no organomegaly EXTREMITIES: No edema of feet. SKIN: No rash, no masses palpable. NEUROLOGICAL: The patient is awake, alert, oriented x3, mood and affect normal. Results CBC & Chem 7: 12/14/21 04:05 12/14/21 04:05 Labs: Abnormal Lab Results - Last 24 Hours (Table) 12/14/21 12/14/21 Range/Units 04:05 04:05 WBC 12.8 H (3.8-10.6) k/uL RBC 3.83 L (4.30-5.90) m/uL Hgb 11.1 L (13.0-17.5) gm/dL Hct 34.7 L (39.0-53.0) % Neutrophils # 11.9 H (1.3-7.7) k/uL Lymphocytes # 0.4 L (1.0-4.8) k/uL BUN 67 H (9-20) mg/dL Creatinine 1.52 H (0.66-1.25) mg/dL Glucose 115 H (74-99) mg/dL Assessment and Plan (1) Pneumonia Current Visit: Yes Status: Acute Code(s): J18.9 - PNEUMONIA, UNSPECIFIED ORGANISM SNOMED Code(s): 836325762 Plan: 1patient presented to hospital with increasing shortness of breath cough yellow sputum and dyspnea did have a fever elevated white count with evidence of bilateral lower lobe pneumonia more than the right side I clinic suspicion for possible gram-negative or aspiration pneumonia. 2patient with elevated creatinine and high risk of nephrotoxicity from the vancomycin. 3we will wait for the blood and sputum culture to finalize. 4continue with Zosyn however discontinue the vancomycin decrease risk of neph rotoxicity. We will follow on clinical condition and cultures to further adjust medication if needed Thank you for this consultation will follow this patient along with you
[2021-12-15] MEDS: PIPERACILLIN-TAZOBACTAM 3.375 GM in SODIUM CHLORIDE 0.9% 100 ML IVPB SCH ×3 (03:48→21:18)
[2021-12-15] MEDS: LEVOTHYROXINE 75 MCG TAB PEG/G-TUBE SCH (05:24)
[2021-12-15] MEDS ORDERED: VANCOMYCIN 1,000 MG in SODIUM CHLORIDE 0.9% 250 ML IVPB SCH (06:00)
--- NOTE | 2021-12-15 07:28 | XR ---
EXAMINATION TYPE: XR chest 1V portable DATE OF EXAM: 12/15/2021 COMPARISON: Chest x-ray 12/14/2021 HISTORY: Shortness of breath TECHNIQUE: Single frontal view of the chest is obtained. FINDINGS: Biapical pleural thickening is present. Patient is post median sternotomy. There is retroc ardiac density with obscured left hemidiaphragm. Interstitium is increased. No evident pneumothorax. Increased density again noted in the upper lobe. Cardiac mediastinal silhouette is stable. Aorta is d ense. Bones are unchanged. IMPRESSION: Correlate to exclude pneumonia, interstitial edema or lung disease, there is underlying bronchiectasis.
[2021-12-15] MEDS: FLUTICASONE 50MCG/SPRAY NASAL 16GM EA NOSTRIL SCH ×2 (07:42→21:20)
[2021-12-15] MEDS: methylPREDNISolone SOD SUCCI 40 MG/ML 1 ML VIAL IV SCH (07:42)
[2021-12-15] MEDS: ASPIRIN 81 MG PEG/G-TUBE SCH (07:42)
[2021-12-15] MEDS: PANTOPRAZOLE 40 MG TABLET PO SCH ×2 (07:42→21:19)
[2021-12-15] MEDS: FERROUS SULFATE 325 MG TAB PO SCH (07:42)
[2021-12-15] MEDS: SYMBICORT 160-4.5 MCG INHALER INHALATION SCH ×2 (08:34→21:05)
[2021-12-15] MEDS: IPRATROPIUM-ALBUTEROL 3 ML NEB INHALATION SCH ×4 (08:35→21:05)
[2021-12-15] MEDS ORDERED: AZITHROMYCIN 500 MG in SODIUM CHLORIDE 0.9% 250 ML IVPB SCH (09:00)
[2021-12-15 09:38] LABS: Basophils # (A) 0.02 X 10*3/uL (0.00-0.10); Basophils % (A) 0.2 %; Eosinophils # (A) 0.12 X 10*3/uL (0.04-0.35); HCT 31.7 % (39.6-50.0); HGB 9.6 g/dL (13.0-17.0); Immature Grans, Automated 0.5 %; Lymphocytes # (A) 1.03 X 10*3/uL (0.90-5.00); Lymphocytes % (A) 8.3 %; MCH 28.4 pg (27.0-32.0); MCHC 30.3 g/dL (32.0-37.0); MCV 93.8 fL (80.0-97.0); Mean Platelet Volume 9.8 fL (9.5-12.2); Monocytes # (A) 0.79 X 10*3/uL (0.20-1.00); Monocytes % (A) 6.4 %; NRBC Per 100 WBC 0 /100 WBCS (0.0-0.0); Neutrophils # (A) 10.32 X 10*3/uL (1.80-7.70); Neutrophils % (A) 83.6 %; Platelet Count 241 X 10*3/uL (140-440); RBC 3.38 X 10*6/uL (4.40-5.60); WBC 12.34 X 10*3/uL (4.50-10.00)
[2021-12-15 10:42] LABS: African American GFR (CKD) 68.1 (60.0-200.0); Anion Gap 11.4 mmol/L (10.00-18.00); BUN/Creat Ratio 37.5 Ratio (12.00-20.00); Carbon Dioxide 25.6 mmol/L (20.0-27.5); Non-African American GFR(CKD) 58.8 (60.0-200.0); Potassium 4.6 mmol/L (3.5-5.5)
--- NOTE | 2021-12-15 13:25 | P.PN ---
Subjective Chart was reviewed patient was seen and examined. Patient admitted with aspiration pneumonia. Patient with history of PEG tube due to history of p haryngeal cancer. Patient has had some nausea and vomiting. Subsequently he developed some shortness of breath and productive cough with yellow sputum. This morning he is doing well. He is up in the chair. Patient denies any respiratory complaints or distress. He remains afebrile Objective - Vital Signs Vital signs: Vital Signs Temp 97.3 F L 12/15/21 08:28 Pulse 87 12/15/21 08:56 Resp 22 12/15/21 08:28 BP 145/79 12/15/21 08:28 Pulse Ox 99 12/15/21 08:28 Intake & Output 12/14/21 12/15/21 12/15/21 18:59 06:59 18:59 Output Total 275 Balance -275 Weight 58.967 kg Output: Urine 275 Other: Voiding Method Urinal Urinal - Exam Awake alert oriented 3 no any apparent distress Head and neck: Anicteric sclera oropharyngeal mucosa is clear no neck masses no JVD Cardiac normal S1/S2, tachycardia Respiratory some wheezing appreciated with rhonchi bilateral air entry Abdomen soft, nontender Extremity no pitting edema noted - Labs CBC & Chem 7: 12/15/21 06:18 12/15/21 06:18 Labs: Abnormal Lab Results - Last 24 Hours (Table) 12/14/21 12/15/21 12/15/21 Range/Units 13:40 06:18 06:18 WBC 12.34 H (4.50-10.00) X 10*3/uL RBC 3.38 L (4.40-5.60) X 10*6/uL Hgb 9.6 L (13.0-17.0) g/dL Hct 31.7 L (39.6-50.0) % MCHC 30.3 L (32.0-37.0) g/dL RDW 15.0 H (11.5-14.5) % Immature Gran # 0.06 H (0.00-0.04) X 10*3/uL Neutrophils # 10.32 H (1.80-7.70) X 10*3/uL BUN 45.0 H (9.0-27.0) mg/dL Est GFR (CKD-EPI)NonAf 58.8 L (60.0-200.0) BUN/Creatinine Ratio 37.50 H (12.00-20.00) Ratio Urine Protein 1+ H (Negative) Urine Mucus Rare H (None) /hpf Microbiology - Last 24 Hours (Table) 12/14/21 04:20 Blood Culture - Preliminary Blood No Growth after 24 hours 12/14/21 04:05 Blood Culture - Preliminary Blood No Growth after 24 hours 12/14/21 16:07 Sputum Culture - Preliminary Sputum Assessment and Plan Plan: # acute hypoxia respiratory distress secondary to community-acquired pneumonia Continue pulmonary toilet, wean off oxygen as tolerated, bronchodilators, pulmonary consultation #Aspiration pneumonia with sepsis aspiration precautions Continue Zosyn per infectious disease recommendations #coronary artery disease status post CABG Continue aspirin and statin #COPD Continue bronchodilators, steroids #chronic kidney disease Monitor electrolytes, avoid nephrotoxins #hypothyroidism #history of throat cancer in 2006 with radical neck dissection and radiochemotherapy History of PEG tube due to chronic severe oropharyngeal dysphagia # status post PEG placement Continue tube feeds per nutrition # history of CVA. On aspirin and statin -DVT prophylaxis
[2021-12-15] MEDS: ATORVASTATIN 20 MG TAB PEG/G-TUBE SCH (17:23)
[2021-12-15] MEDS: MONTELUKAST 10 MG TAB PEG/G-TUBE SCH (17:23)
[2021-12-15] MEDS: MIRTAZAPINE 15 MG TAB PEG/G-TUBE SCH (21:19)
--- NOTE | 2021-12-15 21:26 | P.PN ---
Subjective Progress Note Date: 12/15/21 Principal diagnosis: Pneumonia Patient is a 75-year-old male The past medical history significant for COPD oropharyngeal cancer did have a PEG tube for feeding presenting to the hospital with increasing shortness of breath concerning for pneumonia question of aspiration etiology. On today's evaluation that is 12/15/2021, the patient is afebrile patient is breathing more comfortably, patient denies having any chest pain, cough is decreased intensity and less productive no abdominal pain no diarrhea Objective - Vital Signs Vital signs: Vital Signs Temp 97.3 F L 12/15/21 08:28 Pulse 87 12/15/21 08:56 Resp 22 12/15/21 08:28 BP 145/79 12/15/21 08:28 Pulse Ox 99 12/15/21 08:28 Intake & Output 12/14/21 12/15/21 12/15/21 18:59 06:59 18:59 Output Total 275 Balance -275 Weight 58.967 kg Output: Urine 275 Other: Voiding Method Urinal Urinal - Exam GENERAL DESCRIPTION: An elderly male lying in bed in no distress RESPIRATORY SYSTEM: Unlabored breathing , decreased breath sounds at bases HEART: S1 S2 regular rate and rhythm , ABDOMEN: Soft , no tenderness EXTREMITIES: No edema feet - Labs CBC & Chem 7: 12/15/21 06:18 12/15/21 06:18 Labs: Abnormal Lab Results - Last 24 Hours (Table) 12/15/21 12/15/21 Range/Units 06:18 06:18 WBC 12.34 H (4.50-10.00) X 10*3/uL RBC 3.38 L (4.40-5.60) X 10*6/uL Hgb 9.6 L (13.0-17.0) g/dL Hct 31.7 L (39.6-50.0) % MCHC 30.3 L (32.0-37.0) g/dL RDW 15.0 H (11.5-14.5) % Immature Gran # 0.06 H (0.00-0.04) X 10*3/uL Neutrophils # 10.32 H (1.80-7.70) X 10*3/uL BUN 45.0 H (9.0-27.0) mg/dL Est GFR (CKD-EPI)NonAf 58.8 L (60.0-200.0) BUN/Creatinine Ratio 37.50 H (12.00-20.00) Ratio Microbiology - Last 24 Hours (Table) 12/14/21 04:20 Blood Culture - Preliminary Blood No Growth after 24 hours 12/14/21 04:05 Blood Culture - Preliminary Blood No Growth after 24 hours 12/14/21 16:07 Sputum Culture - Preliminary Sputum Assessment and Plan (1) Pneumonia Current Visit: Yes Status: Acute Code(s): J18.9 - PNEUMONIA, UNSPECIFIED ORGANISM SNOMED Code(s): 351340819 Plan: 1patient presented to hospital with increasing shortness of breath cough yellow sputum and dyspnea did have a fever elevated white count with evidence of bilateral lower lobe pneumonia more than the right side I clinic suspicion for possible gram-negative or aspiration pneumonia. 2patient with elevated creatinine and high risk of nephrotoxicity from the vancomycin. 3we will wait for the blood and sputum culture to finalize to determine his discharge antibiotics. 4patient to continue with Zosyn in view of clinical improvement Time with Patient: Less than 30
[2021-12-16] MEDS: PIPERACILLIN-TAZOBACTAM 3.375 GM in SODIUM CHLORIDE 0.9% 100 ML IVPB SCH ×3 (03:00→19:15)
[2021-12-16] MEDS: LEVOTHYROXINE 75 MCG TAB PEG/G-TUBE SCH (05:26)
[2021-12-16] MEDS: IPRATROPIUM-ALBUTEROL 3 ML NEB INHALATION SCH ×4 (07:09→21:06)
[2021-12-16] MEDS: SYMBICORT 160-4.5 MCG INHALER INHALATION SCH ×2 (07:09→21:06)
[2021-12-16] MEDS: methylPREDNISolone SOD SUCCI 40 MG/ML 1 ML VIAL IV SCH (07:22)
[2021-12-16] MEDS: FLUTICASONE 50MCG/SPRAY NASAL 16GM EA NOSTRIL SCH ×2 (07:26→19:04)
[2021-12-16] MEDS: PANTOPRAZOLE 40 MG TABLET PO SCH ×2 (09:40→19:03)
[2021-12-16] MEDS: ASPIRIN 81 MG PEG/G-TUBE SCH (09:40)
[2021-12-16] MEDS: FERROUS SULFATE 325 MG TAB PO SCH (09:40)
--- NOTE | 2021-12-16 10:20 | P.PN ---
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 Known to infectious disease service, started on Zosyn This morning he is doing well. He is up in the chair. Patient denies any respiratory complaints or distress. He remains afebrile Objective - Vital Signs Vital signs: Vital Signs Temp 97.4 F L 12/16/21 07:24 Pulse 103 H 12/16/21 07:24 Resp 17 12/16/21 08:00 BP 152/87 12/16/21 07:24 Pulse Ox 94 L 12/16/21 07:24 Intake & Output 12/15/21 12/16/21 12/16/21 18:59 06:59 18:59 Output Total 275 300 Balance -275 -300 Weight 63 kg Output: Urine 275 300 Other: Voiding Method Urinal Urinal Urinal # Voids 1 # Bowel Movements 1 - Exam Awake alert oriented 3 no any apparent distress Head and neck: Anicteric sclera oropharyngeal mucosa is clear no neck masses no JVD Cardiac normal S1/S2, tachycardia Respiratory some wheezing appreciated with rhonchi bilateral air entry Abdomen soft, nontender Extremity no pitting edema noted - Labs CBC & Chem 7: 12/15/21 06:18 12/15/21 06:18 Labs: Abnormal Lab Results - Last 24 Hours (Table) 12/15/21 Range/Units 06:18 BUN 45.0 H (9.0-27.0) mg/dL Est GFR (CKD-EPI)NonAf 58.8 L (60.0-200.0) BUN/Creatinine Ratio 37.50 H (12.00-20.00) Ratio Microbiology - Last 24 Hours (Table) 12/14/21 04:20 Blood Culture - Preliminary Blood No Growth after 48 hours 12/14/21 04:05 Blood Culture - Preliminary Blood No Growth after 48 hours 12/14/21 16:07 Gram Stain - Preliminary Sputum Sputum Culture - Preliminary Assessment and Plan Plan: # acute hypoxia respiratory distress secondary to community-acquired pneumonia Continue pulmonary toilet, wean off oxygen as tolerated, bronchodilators, pulmonary consultation #Aspiration pneumonia with sepsis aspiration precautions Continue Zosyn per infectious disease recommendations #coronary artery disease status post CABG Continue aspirin and statin #COPD Continue bronchodilators, steroids #chronic kidney disease Monitor electrolytes, avoid nephrotoxins #hypothyroidism #history of throat cancer in 2005 with radical neck dissection and radiochemotherapy History of PEG tube due to chronic severe oropharyngeal dysphagia # status post PEG placement Continue tube feeds per nutrition # history of CVA. On aspirin and statin -DVT prophylaxis Disposition: Home once cleared by ID
[2021-12-16] MEDS: MONTELUKAST 10 MG TAB PEG/G-TUBE SCH (17:09)
[2021-12-16] MEDS: ATORVASTATIN 20 MG TAB PEG/G-TUBE SCH (17:09)
[2021-12-16] MEDS: MIRTAZAPINE 15 MG TAB PEG/G-TUBE SCH (19:03)
--- NOTE | 2021-12-16 21:04 | P.PN ---
Subjective Progress Note Date: 12/16/21 Principal diagnosis: Pneumonia Patient is a 75-year-old male The past medical history significant for COPD oropharyngeal cancer did have a PEG tube for feeding presenting to the hospital with increasing shortness of breath concerning for pneumonia question of aspiration etiology. On today's evaluation that is 12/16/2021, the patient remains to be afebrile patient is breathing comfortably on 3 L nasal cannula, patient denies having any chest pain, the patient cough has decreased intensity and less productive no abdominal pain no diarrhea Objective - Vital Signs Vital signs: Vital Signs Temp 97.4 F L 12/16/21 07:24 Pulse 84 12/16/21 11:01 Resp 17 12/16/21 08:00 BP 152/87 12/16/21 07:24 Pulse Ox 94 L 12/16/21 07:24 Intake & Output 12/15/21 12/16/21 12/16/21 18:59 06:59 18:59 Output Total 275 300 Balance -275 -300 Weight 63 kg 63 kg Output: Urine 275 300 Other: Voiding Method Urinal Urinal Urinal # Voids 1 # Bowel Movements 1 - Exam GENERAL DESCRIPTION: An elderly male lying in bed in no distress RESPIRATORY SYSTEM: Unlabored breathing , decreased breath sounds at bases HEART: S1 S2 regular rate and rhythm , ABDOMEN: Soft , no tenderness EXTREMITIES: No edema feet - Labs CBC & Chem 7: 12/15/21 06:18 12/15/21 06:18 Labs: Microbiology - Last 24 Hours (Table) 12/14/21 04:20 Blood Culture - Preliminary Blood No Growth after 48 hours 12/14/21 04:05 Blood Culture - Preliminary Blood No Growth after 48 hours 12/14/21 16:07 Gram Stain - Preliminary Sputum Sputum Culture - Preliminary Assessment and Plan (1) Pneumonia Current Visit: Yes Status: Acute Code(s): J18.9 - PNEUMONIA, UNSPECIFIED ORGANISM SNOMED Code(s): 045874970 Plan: 1patient presented to hospital with increasing shortness of breath cough yellow sputum and dyspnea did have a fever elevated white count with evidence of bilateral lower lobe pneumonia more than the right side I clinic suspicion for possible gram-negative or aspiration pneumonia. 2 patient had shown clinical improvement, patient's sputum is currently growing gram-negative with ID and sensitivities pending, patient to continue the Zosyn with a discharge antibiotic on the basis of sputum culture Time with Patient: Less than 30
[2021-12-17] MEDS: LEVOTHYROXINE 75 MCG TAB PEG/G-TUBE SCH (05:26)
[2021-12-17] MEDS: PIPERACILLIN-TAZOBACTAM 3.375 GM in SODIUM CHLORIDE 0.9% 100 ML IVPB SCH ×2 (05:30→12:16)
[2021-12-17] MEDS: IPRATROPIUM-ALBUTEROL 3 ML NEB INHALATION SCH ×4 (08:01→19:13)
[2021-12-17] MEDS: SYMBICORT 160-4.5 MCG INHALER INHALATION SCH ×2 (08:01→19:13)
[2021-12-17] MEDS: methylPREDNISolone SOD SUCCI 40 MG/ML 1 ML VIAL IV SCH (08:49)
[2021-12-17] MEDS: FERROUS SULFATE 325 MG TAB PO SCH (08:49)
[2021-12-17] MEDS: PANTOPRAZOLE 40 MG TABLET PO SCH ×2 (08:49→22:55)
[2021-12-17] MEDS: ASPIRIN 81 MG PEG/G-TUBE SCH (08:49)
--- NOTE | 2021-12-17 12:37 | P.PN ---
Subjective Progress Note Date: 12/17/21 Patient feels back to baseline today. Pending sputum culture finalization. Gen: awake, alert HEENT: normocephalic, atraumatic, good hearing acuity, moist mucous membranes Resp: good air exchange, breathing comfortably with no accessory muscle use CVS: good distal perfusion x 4, GI: soft, NTTP, ND : no SPT, no CVAT, key catheter not present MSK: no pitting edema, no clubbing Neuro: non-focal, moving all extremities Psych: cooperative, euthymic mood Assessment/plan: # acute hypoxia respiratory distress secondary to community-acquired pneumonia Continue pulmonary toilet, wean off oxygen as tolerated, bronchodilators, pulmonary consultation #Aspiration pneumonia with sepsis aspiration precautions Continue Zosyn per infectious disease recommendations Follow up sputum culture, GNB #coronary artery disease status post CABG Continue aspirin and statin #COPD Continue bronchodilators, steroids #chronic kidney disease Monitor electrolytes, avoid nephrotoxins #hypothyroidism #history of throat cancer in 2005 with radical neck dissection and radiochemotherapy History of PEG tube due to chronic severe oropharyngeal dysphagia # status post PEG placement Continue tube feeds per nutrition # history of CVA. On aspirin and statin -DVT prophylaxis Disposition: Home once cleared by ID Objective - Vital Signs Vital signs: Vital Signs Temp 97.8 F 12/17/21 08:10 Pulse 88 12/17/21 11:21 Resp 23 12/17/21 08:10 BP 163/82 12/17/21 08:10 Pulse Ox 100 12/17/21 08:10 Intake & Output 12/16/21 12/17/21 12/17/21 18:59 06:59 18:59 Output Total 775 Balance -775 Weight 63 kg 61 kg Output: Urine 775 Other: Voiding Method Urinal Urinal - Labs CBC & Chem 7: 12/15/21 06:18 12/15/21 06:18 Labs: Microbiology - Last 24 Hours (Table) 12/14/21 04:20 Blood Culture - Preliminary Blood No Growth after 72 hours 12/14/21 04:05 Blood Culture - Preliminary Blood No Growth after 72 hours 12/14/21 16:07 Gram Stain - Preliminary Sputum Sputum Culture - Preliminary Gram Neg Bacilli
[2021-12-17] MEDS: ERTAPENEM 1 GM in SODIUM CHLORIDE 0.9% 50 ML IVPB SCH (17:36)
[2021-12-17] MEDS: ATORVASTATIN 20 MG TAB PEG/G-TUBE SCH (17:36)
[2021-12-17] MEDS: MONTELUKAST 10 MG TAB PEG/G-TUBE SCH (17:36)
[2021-12-17] MEDS: FLUTICASONE 50MCG/SPRAY NASAL 16GM EA NOSTRIL SCH ×2 (20:00→22:56)
--- NOTE | 2021-12-17 21:34 | P.PN ---
Subjective Progress Note Date: 12/17/21 Principal diagnosis: Pneumonia Patient is a 75-year-old male The past medical history significant for COPD oropharyngeal cancer did have a PEG tube for feeding presenting to the hospital with increasing shortness of breath concerning for pneumonia question of aspiration etiology. On today's evaluation that is 12/17/2021, the patient denies any fever or any chills, patient is breathing comfortably on 3 L nasal cannula, patient denies chest pain, the patient cough has decreased intensity and not bringing up any sputum, the patient denies any abdominal pain and no diarrhea Objective - Vital Signs Vital signs: Vital Signs Temp 97.8 F 12/17/21 08:10 Pulse 88 12/17/21 11:21 Resp 23 12/17/21 08:10 BP 163/82 12/17/21 08:10 Pulse Ox 100 12/17/21 08:10 Intake & Output 12/16/21 12/17/21 12/17/21 18:59 06:59 18:59 Output Total 775 Balance -775 Weight 63 kg 61 kg Output: Urine 775 Other: Voiding Method Urinal Urinal - Exam GENERAL DESCRIPTION: An elderly male lying in bed in no distress RESPIRATORY SYSTEM: Unlabored breathing , decreased breath sounds at bases HEART: S1 S2 regular rate and rhythm , ABDOMEN: Soft , no tenderness EXTREMITIES: No edema feet - Labs CBC & Chem 7: 12/15/21 06:18 12/15/21 06:18 Labs: Microbiology - Last 24 Hours (Table) 12/14/21 04:20 Blood Culture - Preliminary Blood No Growth after 72 hours 12/14/21 04:05 Blood Culture - Preliminary Blood No Growth after 72 hours 12/14/21 16:07 Gram Stain - Preliminary Sputum Sputum Culture - Preliminary Gram Neg Bacilli Assessment and Plan (1) Pneumonia Current Visit: Yes Status: Acute Code(s): J18.9 - PNEUMONIA, UNSPECIFIED ORGANISM SNOMED Code(s): 820038467 Plan: 1patient presented to hospital with increasing shortness of breath cough yellow sputum and dyspnea did have a fever elevated white count with evidence of bilateral lower lobe pneumonia more than the right side I clinic suspicion for possible gram-negative or aspiration pneumonia. 2 patient had shown clinical improvement, however the patient's sputum has been finalized ESBL E. coli we will discontinue Zosyn and start the patient on Invanz will need a midline and a short course of IV Invanz on discharge Time with Patient: Less than 30
[2021-12-17] MEDS: MIRTAZAPINE 15 MG TAB PEG/G-TUBE SCH (22:55)
[2021-12-18] MEDS: LEVOTHYROXINE 75 MCG TAB PEG/G-TUBE SCH (05:38)
[2021-12-18] MEDS: FERROUS SULFATE 325 MG TAB PO SCH (08:11)
[2021-12-18] MEDS: ASPIRIN 81 MG PEG/G-TUBE SCH (08:11)
[2021-12-18] MEDS: FLUTICASONE 50MCG/SPRAY NASAL 16GM EA NOSTRIL SCH ×2 (08:11→21:00)
[2021-12-18] MEDS: PANTOPRAZOLE 40 MG TABLET PO SCH ×2 (08:11→21:00)
[2021-12-18] MEDS: methylPREDNISolone SOD SUCCI 40 MG/ML 1 ML VIAL IV SCH (08:11)
[2021-12-18] MEDS: SYMBICORT 160-4.5 MCG INHALER INHALATION SCH ×2 (09:43→21:43)
[2021-12-18] MEDS: IPRATROPIUM-ALBUTEROL 3 ML NEB INHALATION SCH ×4 (09:43→21:43)
--- NOTE | 2021-12-18 11:12 | P.PN ---
Subjective Progress Note Date: 12/18/21 Patient feels back to baseline. Growing ESBL, will need IV ertapenem for a few more days Gen: awake, alert HEENT: normocephalic, atraumatic, good hearing acuity, moist mucous membranes Resp: good air exchange, breathing comfortably with no accessory muscle use CVS: good distal perfusion x 4, GI: soft, NTTP, ND : no SPT, no CVAT, key catheter not present MSK: no pitting edema, no clubbing Neuro: non-focal, moving all extremities Psych: cooperative, euthymic mood Assessment/plan: # acute hypoxia respiratory distress secondary to community-acquired pneumonia Continue pulmonary toilet, wean off oxygen as tolerated, bronchodilators, pulmonary consultation #Aspiration pneumonia with sepsis aspiration precautions Continue ertapenem per infectious disease recommendations Sputum culture with ESBL #coronary artery disease status post CABG Continue aspirin and statin #COPD Continue bronchodilators, steroids #chronic kidney disease Monitor electrolytes, avoid nephrotoxins #hypothyroidism #history of throat cancer in 2005 with radical neck dissection and radiochemotherapy History of PEG tube due to chronic severe oropharyngeal dysphagia # status post PEG placement Continue tube feeds per nutrition # history of CVA. On aspirin and statin -DVT prophylaxis Disposition: Home once cleared by ID Objective - Vital Signs Vital signs: Vital Signs Temp 97.7 F 12/18/21 07:32 Pulse 81 12/18/21 07:32 Resp 22 12/18/21 07:32 BP 102/55 12/18/21 07:32 Pulse Ox 99 12/18/21 07:32 Intake & Output 12/17/21 12/18/21 12/18/21 18:59 06:59 18:59 Weight 63 kg - Labs CBC & Chem 7: 12/15/21 06:18 12/15/21 06:18 Labs: Microbiology - Last 24 Hours (Table) 12/14/21 04:20 Blood Culture - Preliminary Blood No Growth after 96 hours 12/14/21 04:05 Blood Culture - Preliminary Blood No Growth after 96 hours 12/14/21 16:07 Gram Stain - Final Sputum Sputum Culture - Final Klebsiella pneumoniae
[2021-12-18] MEDS: ERTAPENEM 1 GM in SODIUM CHLORIDE 0.9% 50 ML IVPB SCH (17:18)
[2021-12-18] MEDS: MONTELUKAST 10 MG TAB PEG/G-TUBE SCH (21:00)
[2021-12-18] MEDS: MIRTAZAPINE 15 MG TAB PEG/G-TUBE SCH (21:00)
[2021-12-18] MEDS: ATORVASTATIN 20 MG TAB PEG/G-TUBE SCH (21:00)
--- NOTE | 2021-12-18 23:40 | P.PN ---
Subjective Progress Note Date: 12/18/21 Principal diagnosis: Pneumonia Patient is a 75-year-old male The past medical history significant for COPD oropharyngeal cancer did have a PEG tube for feeding presenting to the hospital with increasing shortness of breath concerning for pneumonia question of aspiration etiology. On today's evaluation that is 12/18/2021, the patient remains to be febrile, patient is breathing comfortably on nasal cannula, patient denies chest pain, the patient cough has decreased intensity and mostly dry in nature, the patient denies any abdominal pain and no diarrhea Objective - Vital Signs Vital signs: Vital Signs Temp 97.7 F 12/18/21 07:32 Pulse 81 12/18/21 07:32 Resp 22 12/18/21 07:32 BP 102/55 12/18/21 07:32 Pulse Ox 99 12/18/21 07:32 Intake & Output 12/17/21 12/18/21 12/18/21 18:59 06:59 18:59 Weight 63 kg - Exam GENERAL DESCRIPTION: An elderly male lying in bed in no distress RESPIRATORY SYSTEM: Unlabored breathing , decreased breath sounds at bases HEART: S1 S2 regular rate and rhythm , ABDOMEN: Soft , no tenderness EXTREMITIES: No edema feet - Labs CBC & Chem 7: 12/15/21 06:18 12/15/21 06:18 Labs: Microbiology - Last 24 Hours (Table) 12/14/21 04:20 Blood Culture - Preliminary Blood No Growth after 96 hours 12/14/21 04:05 Blood Culture - Preliminary Blood No Growth after 96 hours 12/14/21 16:07 Gram Stain - Final Sputum Sputum Culture - Final Klebsiella pneumoniae Assessment and Plan (1) Pneumonia Current Visit: Yes Status: Acute Code(s): J18.9 - PNEUMONIA, UNSPECIFIED ORGANISM SNOMED Code(s): 749613083 Plan: 1patient presented to hospital with increasing shortness of breath cough yellow sputum and dyspnea did have a fever elevated white count with evidence of bilateral lower lobe pneumonia more than the right side I clinic suspicion for possible gram-negative or aspiration pneumonia. 2 patient had shown clinical improvement, sputum has been finalized ESBL E. coli, patient to continue with Invanz on plan is to get midline in the morning and plan for another 10 days of IV Invanz 1 g daily to finish his course of therapy Time with Patient: Less than 30
[2021-12-19] MEDS: SYMBICORT 160-4.5 MCG INHALER INHALATION SCH ×2 (08:40→19:52)
[2021-12-19] MEDS ORDERED: ASPIRIN 81 MG ONE (09:00)
[2021-12-19] MEDS ORDERED: methylPREDNISolone SOD SUCCI 40 MG/ML 1 ML VIAL ONE (09:00)
[2021-12-19] MEDS ORDERED: LEVOTHYROXINE 75 MCG TAB ONE (09:00)
[2021-12-19] MEDS ORDERED: FERROUS SULFATE 325 MG TAB PO ONE (09:00)
[2021-12-19] MEDS ORDERED: PANTOPRAZOLE 40 MG TABLET PO ONE (09:00)
[2021-12-19] MEDS: IPRATROPIUM-ALBUTEROL 3 ML NEB INHALATION SCH ×4 (12:33→19:52)
[2021-12-19] MEDS: ASPIRIN 81 MG PEG/G-TUBE SCH (12:33)
[2021-12-19] MEDS: LEVOTHYROXINE 75 MCG TAB PEG/G-TUBE SCH (12:33)
[2021-12-19] MEDS: FERROUS SULFATE 325 MG TAB PO SCH (12:34)
[2021-12-19] MEDS: FLUTICASONE 50MCG/SPRAY NASAL 16GM EA NOSTRIL SCH ×2 (12:34→23:05)
[2021-12-19] MEDS: methylPREDNISolone SOD SUCCI 40 MG/ML 1 ML VIAL IV SCH (12:34)
[2021-12-19] MEDS: PANTOPRAZOLE 40 MG TABLET PO SCH ×2 (12:34→23:06)
--- NOTE | 2021-12-19 13:08 | P.PN ---
Subjective Progress Note Date: 12/19/21 Patient feels back to baseline. Growing ESBL, will need IV ertapenem for a few more days Gen: awake, alert HEENT: normocephalic, atraumatic, good hearing acuity, moist mucous membranes Resp: good air exchange, breathing comfortably with no accessory muscle use CVS: good distal perfusion x 4, GI: soft, NTTP, ND : no SPT, no CVAT, key catheter not present MSK: no pitting edema, no clubbing Neuro: non-focal, moving all extremities Psych: cooperative, euthymic mood Assessment/plan: # acute hypoxia respiratory distress secondary to community-acquired pneumonia Continue pulmonary toilet, wean off oxygen as tolerated, bronchodilators, pulmonary consultation #Aspiration pneumonia with sepsis aspiration precautions Continue ertapenem per infectious disease recommendations Sputum culture with ESBL #coronary artery disease status post CABG Continue aspirin and statin #COPD Continue bronchodilators, steroids #chronic kidney disease Monitor electrolytes, avoid nephrotoxins #hypothyroidism #history of throat cancer in 2005 with radical neck dissection and radiochemotherapy History of PEG tube due to chronic severe oropharyngeal dysphagia # status post PEG placement Continue tube feeds per nutrition # history of CVA. On aspirin and statin -DVT prophylaxis Disposition: Home once cleared by ID Objective - Vital Signs Vital signs: Vital Signs Temp 98.2 F 12/19/21 03:03 Pulse 96 12/19/21 12:57 Resp 19 12/19/21 03:03 BP 161/52 12/19/21 03:03 Pulse Ox 98 12/19/21 03:06 Intake & Output 12/18/21 12/19/21 12/19/21 18:59 06:59 18:59 Weight 62.5 kg - Labs CBC & Chem 7: 12/15/21 06:18 12/15/21 06:18 Labs: Microbiology - Last 24 Hours (Table) 12/14/21 04:20 Blood Culture - Preliminary Blood No Growth after 120 hours 12/14/21 04:05 Blood Culture - Preliminary Blood No Growth after 120 hours
[2021-12-19 14:13] VITALS: BMI 25.2
[2021-12-19] MEDS: ERTAPENEM 1 GM in SODIUM CHLORIDE 0.9% 50 ML IVPB SCH (17:11)
[2021-12-19] MEDS: ATORVASTATIN 20 MG TAB PEG/G-TUBE SCH (23:06)
[2021-12-19] MEDS: MIRTAZAPINE 15 MG TAB PEG/G-TUBE SCH (23:06)
[2021-12-19] MEDS: MONTELUKAST 10 MG TAB PEG/G-TUBE SCH (23:06)
[2021-12-20] MEDS: LEVOTHYROXINE 75 MCG TAB PEG/G-TUBE SCH (06:16)
[2021-12-20] MEDS: FERROUS SULFATE 325 MG TAB PO SCH (07:42)
[2021-12-20] MEDS: ASPIRIN 81 MG PEG/G-TUBE SCH (07:42)
[2021-12-20] MEDS: PANTOPRAZOLE 40 MG TABLET PO SCH ×2 (07:42→20:40)
[2021-12-20] MEDS: methylPREDNISolone SOD SUCCI 40 MG/ML 1 ML VIAL IV SCH (07:43)
[2021-12-20] MEDS: FLUTICASONE 50MCG/SPRAY NASAL 16GM EA NOSTRIL SCH ×2 (07:43→20:45)
--- NOTE | 2021-12-20 09:00 | P.DS ---
Providers Date of admission: 12/14/21 06:19 Expected date of discharge: 12/20/21 Attending physician: Kenton Brown Consults: 12/14/21 11:40 Consult Physician Routine Consulting Provider: Alex Gunderson Consult Reason/Comments: CAP -patient known to you Do you want consulting provider notified?: Yes Primary care physician: [facility] Course: Patient is a 75-year-old male with a past medical history significant for COPD, hypothyroidism, hyperlipidemia the presence of the hospital complaining of intractable nausea and vomiting associated with some shortness of breath. Patient states that he does not use auction at home however has been having some shortness of breath for the past few days and progressively getting worse. He also complains of a productive cough that is yellowish in color and approximately 1-2 teaspoons. He denies any intractable nausea vomiting today during my examination or any abdominal discomfort. Patient's vital signs in the emergency department were tachycardic at 104, normal tensive, 94% on 5 L nasal cannula and afebrile, CBC reviewed leukocytosis 12.8, creatinine 1.5 to, BUN 67 and he was found to be negative for influenza A COVID-19 pneumonia. Chest x-ray was completed which showed bilateral pneumonia infiltrates in the upper lobe on the right this seems to be new compared to old exam. Patient also states that he has been having recurrent bacterial pneumonia infections. 12/20: Patient has been seen and followed by infectious disease for aspiration pneumonia and sputum culture finalized with ESBL E. coli. Dr. Sharif recommended midline which was done yesterday and a 10 day course of Invanz which has been arranged by the welfare case worker. Patient is anxious to be discharged. His breathing status is stable. Pulse ox is 96-97% on 2 L nasal cannula. He has been maintained on PEG tube feedings. Patient will be discharged today in stable condition. DISCHARGE DIAGNOSES Acute hypoxia respiratory distress secondary to community-acquired pneumonia Aspiration ESBL E. coli pneumonia with sepsis Coronary artery disease status post CABG COPD Chronic kidney disease stage2 Hypothyroidism History of throat cancer in 2005 with radical neck dissection and radiochemotherapy History of PEG tube due to chronic severe oropharyngeal dysphagia History of CVA. DISCHARGE PLAN Home with [facility] Greater than 35 minutes was utilized and coordinating patient's discharge. Impression and plan of care have been directed as dictated by the signing physician. Meenu Segovia nurse practitioner acting as scribe for signing physician. Patient Condition at Discharge: Serious Plan - Discharge Summary Discharge Rx Participant: No New Discharge Prescriptions: New Ertapenem [INVanz] 1 gm IVPB Q24H #10 each Continue Fluticasone Nasal [place] [Flonase Nasal [place]] 2 spr EA NOSTRIL BID Montelukast [Singulair] 10 mg PEG/G-TUBE W/SUPPER Pantoprazole [Protonix] 40 mg PEG/G-TUBE BID Atorvastatin [Lipitor] 20 mg PEG/G-TUBE W/SUPPER polyethylene glycoL 3350 [Miralax] 17 gm PEG/G-TUBE DAILY Jevity 2.0 Mario 1 dose PEG/G-TUBE TID@0730,1300,1630 Budesonide/Formoterol Fumarate [Symbicort 160-4.5 Mcg Inhaler] 2 puff INHALATION RT-BID Mirtazapine [Remeron] 15 mg PEG/G-TUBE HS Midodrine HCl [ProAmatine] 10 mg PEG/G-TUBE TID PRN PRN Reason: Low BP predniSONE 5 mg PEG/G-TUBE DIRECTED Ferrous Sulfate [Iron (65 MG Elemental)] 325 mg PEG/G-TUBE DAILY Cetirizine HCl [Zyrtec] 10 mg PEG/G-TUBE DAILY Multivitamins, Thera [Multivitamin (formulary)] 1 tab PEG/G-TUBE DAILY Albuterol Inhaler [Ventolin Hfa Inhaler] 2 puff INHALATION RT-QID PRN PRN Reason: Shortness Of Breath Ipratropium-Albuterol Nebulize [Duoneb 0.5 mg-3 mg/3 ml Soln] 3 ml INHALATION RT-QID Jevity 1.5 Mario Liquid 1 dose PEG/G-TUBE BID@0730,1300 Aspirin 81 mg PEG/G-TUBE DAILY rOPINIRole HCL [Requip] 0.25 mg PEG/G-TUBE BID Sodium Chloride Tab 1 gm PEG/G-TUBE BID Mirabegron [Myrbetriq] 25 mg PEG/G-TUBE HS Calcium Carbonate [Calcium] 600 mg PEG/G-TUBE DAILY Levothyroxine Sodium [Synthroid] 150 mcg PEG/G-TUBE DAILY predniSONE See Taper PEG/G-TUBE DAILY Discontinued Ciprofloxacin HCl [Cipro] 500 mg PEG/G-TUBE DIRECTED Discharge Medication List Fluticasone Nasal [place] [Flonase Nasal [place]] 2 spr EA NOSTRIL BID 02/12/17 [History] Albuterol Inhaler [Ventolin Hfa Inhaler] 2 puff INHALATION RT-QID PRN 04/09/21 [ History] Atorvastatin [Lipitor] 20 mg PEG/G-TUBE W/SUPPER 04/09/21 [History] Ipratropium-Albuterol Nebulize [Duoneb 0.5 mg-3 mg/3 ml Soln] 3 ml INHALATION RT-QID 04/09/21 [History] Montelukast [Singulair] 10 mg PEG/G-TUBE W/SUPPER 04/09/21 [History] Pantoprazole [Protonix] 40 mg PEG/G-TUBE BID 04/09/21 [History] Aspirin 81 mg PEG/G-TUBE DAILY 09/07/21 [History] Budesonide/Formoterol Fumarate [Symbicort 160-4.5 Mcg Inhaler] 2 puff INHALATION RT-BID 09/07/21 [History] Jevity 1.5 Mario Liquid 1 dose PEG/G-TUBE BID@0730,1300 09/07/21 [History] Jevity 2.0 Mario 1 dose PEG/G-TUBE TID@0730,1300,1630 09/07/21 [History] Midodrine HCl [ProAmatine] 10 mg PEG/G-TUBE TID PRN 09/07/21 [History] Mirtazapine [Remeron] 15 mg PEG/G-TUBE HS 09/07/21 [History] Sodium Chloride Tab 1 gm PEG/G-TUBE BID 09/07/21 [History] polyethylene glycoL 3350 [Miralax] 17 gm PEG/G-TUBE DAILY 09/07/21 [History] predniSONE 5 mg PEG/G-TUBE DIRECTED 09/07/21 [History] rOPINIRole HCL [Requip] 0.25 mg PEG/G-TUBE BID 09/07/21 [History] Calcium Carbonate [Calcium] 600 mg PEG/G-TUBE DAILY 12/14/21 [History] Cetirizine HCl [Zyrtec] 10 mg PEG/G-TUBE DAILY 12/14/21 [History] Ferrous Sulfate [Iron (65 MG Elemental)] 325 mg PEG/G-TUBE DAILY 12/14/21 [History] Levothyroxine Sodium [Synthroid] 150 mcg PEG/G-TUBE DAILY 12/14/21 [History] Mirabegron [Myrbetriq] 25 mg PEG/G-TUBE HS 12/14/21 [History] Multivitamins, Thera [Multivitamin (formulary)] 1 tab PEG/G-TUBE DAILY 12/14/21 [History] predniSONE See Taper PEG/G-TUBE DAILY 12/14/21 [History] Ertapenem [INVanz] 1 gm IVPB Q24H #10 each 12/19/21 [Rx] Follow up Appointment(s)/Referral(s): Kenton Brown MD [Primary Care Provider] - 12/23/21 3:00 pm Care,[facility] [NON-STAFF] - ([facility] will call you to schedule the time for your first visit for 12/21/21 to begin your home IV antibiotics and teaching. Please call them if you have any questions. ) Alex Gunderson MD [STAFF PHYSICIAN] - 01/03/22 1:15 pm Patient Instructions/Handouts: Community Acquired Pneumonia (DC), How to Care for Your Midline Catheter (DC) Activity/Diet/Wound Care/Special Instructions: Freight Router is coordinating IV antibiotics with the [facility] [place]. Discharge Disposition: HOME WITH HOME HEALTH SERVICES
[2021-12-20] MEDS: SYMBICORT 160-4.5 MCG INHALER INHALATION SCH ×2 (09:01→20:27)
[2021-12-20] MEDS: IPRATROPIUM-ALBUTEROL 3 ML NEB INHALATION SCH ×4 (09:02→20:27)
[2021-12-20] MEDS: ERTAPENEM 1 GM in SODIUM CHLORIDE 0.9% 50 ML IVPB SCH (15:33)
[2021-12-20] MEDS: MONTELUKAST 10 MG TAB PEG/G-TUBE SCH (20:40)
[2021-12-20] MEDS: ATORVASTATIN 20 MG TAB PEG/G-TUBE SCH (20:40)
[2021-12-20] MEDS: MIRTAZAPINE 15 MG TAB PEG/G-TUBE SCH (20:40)
[2021-12-21] MEDS: LEVOTHYROXINE 75 MCG TAB PEG/G-TUBE SCH (05:38)
[2021-12-21] MEDS: PANTOPRAZOLE 40 MG TABLET PO SCH (08:03)
[2021-12-21] MEDS: FERROUS SULFATE 325 MG TAB PO SCH (08:03)
[2021-12-21] MEDS: ASPIRIN 81 MG PEG/G-TUBE SCH (08:03)
[2021-12-21] MEDS: methylPREDNISolone SOD SUCCI 40 MG/ML 1 ML VIAL IV SCH (08:04)
[2021-12-21] MEDS: FLUTICASONE 50MCG/SPRAY NASAL 16GM EA NOSTRIL SCH (08:04)
[2021-12-21 08:06] VITALS: BP 152/84; PULSE 66; RESP 16; TEMP 97.5
[2021-12-21] MEDS: IPRATROPIUM-ALBUTEROL 3 ML NEB INHALATION SCH ×2 (08:48→12:06)
[2021-12-21] MEDS: SYMBICORT 160-4.5 MCG INHALER INHALATION SCH (08:48)
--- NOTE | 2021-12-21 12:02 | P.PN ---
Subjective Progress Note Date: 12/20/21 Hospital Course: Patient is a 75-year-old male with a past medical history significant for COPD, hypothyroidism, hyperlipidemia the presence of the hospital complaining of intractable nausea and vomiting associated with some shortness of breath. Patient states that he does not use auction at home however has been having some shortness of breath for the past few days and progressively getting worse. He also complains of a productive cough that is yellowish in color and appr oximately 1-2 teaspoons. He denies any intractable nausea vomiting today during my examination or any abdominal discomfort. Patient's vital signs in the emergency department were tachycardic at 104, normal tensive, 94% on 5 L nasal cannula and afebrile, CBC reviewed leukocytosis 12.8, creatinine 1.5 to, BUN 67 and he was found to be negative for influenza A COVID-19 pneumonia. Chest x-ray was completed which showed bilateral pneumonia infiltrates in the upper lobe on the right this seems to be new compared to old exam. Patient also states that he has been having recurrent bacterial pneumonia infections. 12/20: Patient has been seen and followed by infectious disease for aspiration pneumonia and sputum culture finalized with ESBL E. coli. Dr. Sharif recommended midline which was done yesterday and a 10 day course of Invanz which has been arranged by the disease case manager. Patient is anxious to be discharged. His breathing status is stable. Pulse ox is 96-97% on 2 L nasal cannula. He has been maintained on PEG tube feedings. Review Of Systems: Constitutional: No fever, no chills, no night sweats. No weight change. No weakness, fatigue or lethargy. No daytime sleepiness. EENT: No headache. No blurred vision or double vision, no loss of vision. No loss of Hearing, no ringing in the ears, no dizziness. No nasal drainage or congestion. No epistaxis. No sore throat. Lungs: No shortness of breath, cough, no sputum production. No wheezing. Cardiovascular: No chest pain, no lower extremity edema. No palpitations. No paroxysmal nocturnal dyspnea. No orthopnea. No lightheadedness or dizziness. No syncopal episodes. Abdominal: No abdominal pain. No nausea, vomiting. No diarrhea. No constipation. No bloody or tarry stools.. No loss of appetite. Genitourinary: No dysuria, increased frequency, urgency. No urinary retention. Musculoskeletal: No myalgias. No muscle weakness, no gait dysfunction, no frequent falls. No back pain. No neck pain. Integumentary: No wounds, no lesions. No rash or pruritus. No unusual bruising. No change in hair or nails. Neurologic: No aphasia. No facial droop. No change in mentation. No head injury. No headache. No paralysis. No paresthesia. Psychiatric: No depression. No anxiety. No mood swings. Endocrine: No abnormal blood sugars. No weight change. No excessive sweating or thirst. No cold intolerance. Physical examination Gen: This is a 75-year-old male. He is resting in bed and appears to be comfortable. HEENT: normocephalic, atraumatic, good hearing acuity, moist mucous membranes Resp: good air exchange, breathing comfortably with no accessory muscle use CVS: good distal perfusion x 4, GI: soft, NTTP, ND : no SPT, no CVAT, PEG tube MSK: no pitting edema, no clubbing Neuro: non-focal, moving all extremities Psych: cooperative, euthymic mood Assessment/plan: # acute hypoxia respiratory distress secondary to community-acquired pneumonia Continue pulmonary toilet, wean off oxygen as tolerated, bronchodilators, pulmonary consultation #Aspiration pneumonia with sepsis aspiration precautions Continue ertapenem per infectious disease recommendations Sputum culture with ESBL Midline inserted #coronary artery disease status post CABG Continue aspirin and statin #COPD Continue bronchodilators, steroids #chronic kidney disease Monitor electrolytes, avoid nephrotoxins #hypothyroidism #history of throat cancer in 2006 with radical neck dissection and radiochemotherapy History of PEG tube due to chronic severe oropharyngeal dysphagia # status post PEG placement Continue tube feeds per nutrition # history of CVA. On aspirin and statin -DVT prophylaxis Discharge once IV antibiotics are arranged Impression and plan of care have been directed as dictated by the signing physician. Meenu Segovia nurse practitioner acting as scribe for signing physician. Objective - Vital Signs Vital signs: Vital Signs Temp 97.5 F L 12/21/21 08:00 Pulse 66 12/21/21 08:00 Resp 16 12/21/21 08:00 BP 152/84 12/21/21 08:00 Pulse Ox 99 12/21/21 08:00 Intake & Output 12/20/21 12/21/21 12/21/21 18:59 06:59 18:59 Weight 61 kg Other: Voiding Method Toilet Urinal - Labs CBC & Chem 7: 12/15/21 06:18 12/15/21 06:18 Labs: Microbiology - Last 24 Hours (Table) 12/14/21 04:05 Blood Culture - Final Blood No Growth after 144 hours 12/14/21 04:20 Blood Culture - Final Blood No Growth after 144 hours
[2021-12-21] MEDS: ERTAPENEM 1 GM in SODIUM CHLORIDE 0.9% 50 ML IVPB SCH (12:55)
--- NOTE | 2021-12-28 18:02 | P.PN ---
Subjective Progress Note Date: 12/19/21 Principal diagnosis: Pneumonia Patient is a 75-year-old male The past medical history significant for COPD oropharyngeal cancer did have a PEG tube for feeding presenting to the hospital with increasing shortness of breath concerning for pneumonia question of aspiration etiology. On today's evaluation that is 12/19/2021, the patient continues to be febrile, patient is breathing comfortably on nasal cannula, patient denies chest pain, the patient cough has decreased intensity and occasional sputum production, the patient denies any abdominal pain and no diarrhea Objective - Vital Signs Vital signs: Vital Signs Temp 98.2 F 12/19/21 03:03 Pulse 84 12/19/21 03:03 Resp 19 12/19/21 03:03 BP 161/52 12/19/21 03:03 Pulse Ox 98 12/19/21 03:06 Intake & Output 12/18/21 12/19/21 12/19/21 18:59 06:59 18:59 Weight 62.5 kg - Exam GENERAL DESCRIPTION: An elderly male lying in bed in no distress RESPIRATORY SYSTEM: Unlabored breathing , decreased breath sounds at bases HEART: S1 S2 regular rate and rhythm , ABDOMEN: Soft , no tenderness EXTREMITIES: No edema feet - Labs CBC & Chem 7: 12/15/21 06:18 12/15/21 06:18 Labs: Microbiology - Last 24 Hours (Table) 12/14/21 04:20 Blood Culture - Preliminary Blood No Growth after 120 hours 12/14/21 04:05 Blood Culture - Preliminary Blood No Growth after 120 hours Assessment and Plan (1) Pneumonia Status: Acute Code(s): J18.9 - PNEUMONIA, UNSPECIFIED ORGANISM SNOMED Code(s): 153314636 Plan: 1patient presented to hospital with increasing shortness of breath cough yellow sputum and dyspnea did have a fever elevated white count with evidence of bilateral lower lobe pneumonia more than the right side I clinic suspicion for possible gram-negative or aspiration pneumonia. 2 patient had shown clinical improvement, sputum has been finalized ESBL E. coli, patient to continue with Invanz, patient did in the midline is currently waiting for the [place] authorization of outpatient IV antibiotic before discharge Time with Patient: Less than 30
--- NOTE | 2021-12-28 18:03 | P.PN ---
Subjective Progress Note Date: 12/20/21 Principal diagnosis: Pneumonia Patient is a 75-year-old male The past medical history significant for COPD oropharyngeal cancer did have a PEG tube for feeding presenting to the hospital with increasing shortness of breath concerning for pneumonia question of aspiration etiology. On today's evaluation that is 12/20/2021, the patient is febrile, patient is breathing comfortably on nasal cannula, patient denies chest pain, the patient did have occasional dry cough , the patient denies any abdominal pain and no diarrhea Objective - Vital Signs Vital signs: Vital Signs Temp 98.1 F 12/20/21 13:33 Pulse 97 12/20/21 13:33 Resp 18 12/20/21 13:33 BP 152/88 12/20/21 13:33 Pulse Ox 98 12/20/21 13:33 Intake & Output 12/19/21 12/20/21 12/20/21 18:59 06:59 18:59 Intake Total 0 Balance 0 Weight 62.5 kg 62 kg Intake: Oral 0 Other: Voiding Method Urinal # Voids 2 1 # Bowel Movements 2 1 - Exam GENERAL DESCRIPTION: An elderly male lying in bed in no distress RESPIRATORY SYSTEM: Unlabored breathing , decreased breath sounds at bases HEART: S1 S2 regular rate and rhythm , ABDOMEN: Soft , no tenderness EXTREMITIES: No edema feet - Labs CBC & Chem 7: 12/15/21 06:18 12/15/21 06:18 Labs: Microbiology - Last 24 Hours (Table) 12/14/21 04:05 Blood Culture - Final Blood No Growth after 144 hours 12/14/21 04:20 Blood Culture - Final Blood No Growth after 144 hours Assessment and Plan (1) Pneumonia Status: Acute Code(s): J18.9 - PNEUMONIA, UNSPECIFIED ORGANISM SNOMED Code(s): 552052621 Plan: 1patient presented to hospital with increasing shortness of breath cough yellow sputum and dyspnea did have a fever elevated white count with evidence of bilateral lower lobe pneumonia more than the right side I clinic suspicion for possible gram-negative or aspiration pneumonia. 2 patient is slowly clinically improving, sputum has been finalized ESBL E. coli, patient to continue with Invanz 1 g daily, patient did in the midline is currently waiting for the [place] authorization of outpatient IV antibiotic before discharge Time with Patient: Less than 30
--- NOTE | 2021-12-28 18:05 | P.PN ---
Subjective Progress Note Date: 12/21/21 Principal diagnosis: ESBL E. coli Pneumonia Patient is a 75-year-old male The past medical history significant for COPD oropharyngeal cancer did have a PEG tube for feeding presenting to the hospital with increasing shortness of breath concerning for pneumonia question of aspiration etiology. On today's evaluation that is 12/21/2021, the patient denies any fever or any chills, patient is breathing comfortably on nasal cannula, patient denies chest pain, no worsening cough or sputum production abdominal pain and no diarrhea with antibiotic therapy Objective - Vital Signs Vital signs: Vital Signs Temp 97.5 F L 12/21/21 08:00 Pulse 66 12/21/21 08:00 Resp 16 12/21/21 08:00 BP 152/84 12/21/21 08:00 Pulse Ox 99 12/21/21 08:00 Intake & Output 12/20/21 12/21/21 12/21/21 18:59 06:59 18:59 Weight 61 kg Other: Voiding Method Toilet Urinal - Exam GENERAL DESCRIPTION: An elderly male lying in bed in no distress RESPIRATORY SYSTEM: Unlabored breathing , decreased breath sounds at bases HEART: S1 S2 regular rate and rhythm , ABDOMEN: Soft , no tenderness EXTREMITIES: No edema feet - Labs CBC & Chem 7: 12/15/21 06:18 12/15/21 06:18 Assessment and Plan (1) Pneumonia Status: Acute Code(s): J18.9 - PNEUMONIA, UNSPECIFIED ORGANISM SNOMED Code(s): 595711187 Plan: 1patient presented to hospital with increasing shortness of breath cough yellow sputum and dyspnea did have a fever elevated white count with evidence of bilateral lower lobe pneumonia more than the right side I clinic suspicion for possible gram-negative or aspiration pneumonia. 2 patient is slowly clinically improving, sputum has been finalized ESBL E. coli, patient to continue with Invanz 1 g daily, patient did in the midline , antibiotic has been authorized by [place] for home infusion to continue with the Invanz 1 g daily for another 7 days to finish a course of therapy Time with Patient: Less than 30
== END 2021-12-21 13:53 | disposition home health service (06) | DRG 871 ==
LOC: EC 03:19 → 4SSUR 06:19
PROVIDERS: ADMIT Internal Medicine Geriatric Medicine; ATTEND Internal Medicine Geriatric Medicine
DX: A41.9 Sepsis, unspecified organism (principal); J15.5 Pneumonia due to Escherichia coli; J69.0 Pneumonitis due to inhalation of food and vomit; J96.21 Acute and chronic respiratory failure with hypoxia; J44.0 Chronic obstructive pulmonary disease with (acute) lower respiratory infection; N17.9 Acute kidney failure, unspecified; Z16.12 Extended spectrum beta lactamase (ESBL) resistance; E03.9 Hypothyroidism, unspecified; E78.5 Hyperlipidemia, unspecified; F17.200 Nicotine dependence, unspecified, uncomplicated; H91.90 Unspecified hearing loss, unspecified ear; I25.10 Atherosclerotic heart disease of native coronary artery without angina pectoris; N18.2 Chronic kidney disease, stage 2 (mild); I12.9 Hypertensive chronic kidney disease with stage 1 through stage 4 chronic kidney disease, or unspecified chronic kidney disease; R13.12 Dysphagia, oropharyngeal phase; Z85.818 Personal history of malignant neoplasm of other sites of lip, oral cavity, and pharynx; Z92.21 Personal history of antineoplastic chemotherapy; Z92.3 Personal history of irradiation; Z79.51 Long term (current) use of inhaled steroids; Z79.82 Long term (current) use of aspirin; Z20.822 Contact with and (suspected) exposure to COVID-19; Z79.899 Other long term (current) drug therapy; Z80.1 Family history of malignant neoplasm of trachea, bronchus and lung; Z82.49 Family history of ischemic heart disease and other diseases of the circulatory system; Z85.89 Personal history of malignant neoplasm of other organs and systems; Z86.73 Personal history of transient ischemic attack (TIA), and cerebral infarction without residual deficits; Z93.1 Gastrostomy status; Z87.01 Personal history of pneumonia (recurrent); Z95.1 Presence of aortocoronary bypass graft
CPT/HCPCS: 36415; 71045; 71046; 80048; 80053; 81001; 82150; 83690; 83880; 85025; 87040; 87070; 87077; 87186; 87205; 87636; 94640; 94760; 96361; 96365; 96366; 96368; 96375; 99285

== ENCOUNTER 2022-03-19 08:34 | Inpatient (IN) | payer OTHER, MEDICARE ==
--- NOTE | 2022-03-19 09:08 | ED ---
Nausea/Vomiting/Diarrhea HPI - General Chief complaint: Nausea/Vomiting/Diarrhea Stated complaint: vomiting Time Seen by Provider: 03/19/22 08:47 Source: patient, RN notes reviewed Mode of arrival: wheelchair Limitations: no limitations - History of Present Illness Initial comments: 76-year-old male with a history of multiple medical issues including he uses a feeding tube and he has had a history of aspiration pneumonia in the past apparently the onset 4 days ago of episodes of nausea vomiting. She's had chills but no overt fever no overt cough no dysuria hematuria he has had decreased oral intake. He purely had a phone consult with his doctor 2 days ago was placed on Zofran at that time but he is getting progressively worse not better MD complaint: nausea, vomiting - Related Data Home Medications Medication Instructions Recorded Confirmed Fluticasone Nasal [place] [Flonase 2 spr EA NOSTRIL BID 02/12/17 12/14/21 Nasal [place]] Albuterol Inhaler [Ventolin Hfa 2 puff INHALATION RT-QID PRN 04/09/21 12/14/21 Inhaler] Atorvastatin [Lipitor] 20 mg PEG/G-TUBE W/SUPPER 04/09/21 12/14/21 Ipratropium-Albuterol Nebulize 3 ml INHALATION RT-QID 04/09/21 12/14/21 [Duoneb 0.5 mg-3 mg/3 ml Soln] Montelukast [Singulair] 10 mg PEG/G-TUBE W/SUPPER 04/09/21 12/14/21 Pantoprazole [Protonix] 40 mg PEG/G-TUBE BID 04/09/21 12/14/21 Aspirin 81 mg PEG/G-TUBE DAILY 09/07/21 12/14/21 Budesonide/Formoterol Fumarate 2 puff INHALATION RT-BID 09/07/21 12/14/21 [Symbicort 160-4.5 Mcg Inhaler] Jevity 1.5 Mario Liquid 1 dose PEG/G-TUBE BID@0730,1300 09/07/21 12/14/21 Jevity 2.0 Mario 1 dose PEG/G-TUBE 09/07/21 12/14/21 TID@0730,1300,1630 Midodrine HCl [ProAmatine] 10 mg PEG/G-TUBE TID PRN 09/07/21 12/14/21 Mirtazapine [Remeron] 15 mg PEG/G-TUBE HS 09/07/21 12/14/21 Sodium Chloride Tab 1 gm PEG/G-TUBE BID 09/07/21 12/14/21 polyethylene glycoL 3350 [Miralax] 17 gm PEG/G-TUBE DAILY 09/07/21 12/14/21 predniSONE 5 mg PEG/G-TUBE DIRECTED 09/07/21 12/14/21 rOPINIRole HCL [Requip] 0.25 mg PEG/G-TUBE BID 09/07/21 12/14/21 Calcium Carbonate [Calcium] 600 mg PEG/G-TUBE DAILY 12/14/21 12/14/21 Cetirizine HCl [Zyrtec] 10 mg PEG/G-TUBE DAILY 12/14/21 12/14/21 Ferrous Sulfate [Iron (65 MG 325 mg PEG/G-TUBE DAILY 12/14/21 12/14/21 Elemental)] Levothyroxine Sodium [Synthroid] 150 mcg PEG/G-TUBE DAILY 12/14/21 12/14/21 Mirabegron [Myrbetriq] 25 mg PEG/G-TUBE HS 12/14/21 12/14/21 Multivitamins, Thera [Multivitamin 1 tab PEG/G-TUBE DAILY 12/14/21 12/14/21 (formulary)] predniSONE See Taper PEG/G-TUBE DAILY 12/14/21 12/14/21 Previous Rx's Medication Instructions Recorded Ertapenem [INVanz] 1 gm IVPB Q24H #10 each 12/19/21 Allergies Allergy/AdvReac Type Severity Reaction Status Date / Time No Known Allergies Allergy Verified 03/19/22 08:50 Review of Systems ROS Statement: Those systems with pertinent positive or pertinent negative responses have been documented in the HPI. ROS Other: All systems not noted in ROS Statement are negative. 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 Current lung congestion, coughing, wheezing ongoing. History of Any Multi-Drug Resistant Organisms: MRSA Date of last positivie culture/infection: 04/09/21 MDRO Source:: Sputum Past Surgical History: Coronary Bypass/CABG, Heart Catheterization, Hernia Repair, Orthopedic Surgery Additional Past Surgical History / Comment(s): 02/2017 CABG-4 vessel, angiograms, R internal caratid stented, 2005 radical neck dissection for pharyngeal cancer, L/R inguinal hernia repair, 3 sinus surgeries with benign polypectomy, colonoscopy, bilateral rotator cuff repairs. Past Anesthesia/Blood Transfusion Reactions: No Reported Reaction, Motion Sickness Past Psychological History: No Psychological Hx Reported Smoking Status: Former smoker Past Alcohol Use History: Rare Past Drug Use History: Marijuana - Past Family History Father Family Medical History: Cancer Additional Family Medical History / Comment(s): Father had lung cancer. He was a smoker. Mother Family Medical History: Congestive Heart Failure (CHF) Sister(s) Family Medical History: Cancer General Exam - General Exam Comments Initial Comments: Is a well-developed frail appearing male who is awake alert oriented 4 Limitations: no limitations General appearance: alert, in no apparent distress Head exam: Present: atraumatic, normocephalic, normal inspection Eye exam: Present: normal appearance, PERRL, EOMI. Absent: scleral icterus, conjunctival injection, periorbital swelling ENT exam: Present: mucous membranes dry Neck exam: Present: normal inspection. Absent: tenderness, meningismus, lymphadenopathy Respiratory exam: Present: decreased breath sounds. Absent: respiratory distress, wheezes, rales, rhonchi, stridor Cardiovascular Exam: Present: regular rate, normal rhythm, normal heart sounds. Absent: systolic murmur, diastolic murmur, rubs, gallop, clicks GI/Abdominal exam: Present: soft, normal bowel sounds, other (Feeding tube is present). Absent: distended, tenderness, guarding, rebound, rigid, bruit, pulsa tile mass (Feeding tube is presen) Extremities exam: Present: normal inspection, full ROM, normal capillary refill. Absent: tenderness, pedal edema, joint swelling, calf tenderness Back exam: Present: normal inspection Neurological exam: Present: alert, oriented X3, CN II-XII intact Psychiatric exam: Present: normal affect, normal mood Skin exam: Present: warm, dry, intact, normal color. Absent: rash Course Vital Signs 03/19/22 03/19/22 03/19/22 08:45 10:17 11:06 Temperature 98.2 F 99 F Pulse Rate 94 78 97 Respiratory 16 18 22 Rate Blood Pressure 90/48 124/78 148/74 O2 Sat by Pulse 95 94 L 96 Oximetry Medical Decision Making - Medical Decision Making I did discuss findings with patient family members patient does have evidence of right upper lobe infiltrate suspicious for aspiration. I did discuss case with Dr. Castillo the patient be admitted with consultation by Dr. Mendoza's group - Lab Data Result diagrams: 03/19/22 09:48 03/19/22 09:48 Lab Results 03/19/22 03/19/22 03/19/22 Range/Units 09:29 09:48 09:48 WBC 14.6 H (3.8-10.6) k/uL RBC 3.78 L (4.30-5.90) m/uL Hgb 11.0 L (13.0-17.5) gm/dL Hct 34.3 L (39.0-53.0) % MCV 90.8 (80.0-100.0) fL MCH 29.0 (25.0-35.0) pg MCHC 32.0 (31.0-37.0) g/dL RDW 14.4 (11.5-15.5) % Plt Count 260 (150-450) k/uL MPV 7.2 Neutrophils % 84 % Lymphocytes % 11 % Monocytes % 4 % Eosinophils % 0 % Basophils % 1 % Neutrophils # 12.3 H (1.3-7.7) k/uL Lymphocytes # 1.6 (1.0-4.8) k/uL Monocytes # 0.6 (0-1.0) k/uL Eosinophils # 0.0 (0-0.7) k/uL Basophils # 0.1 (0-0.2) k/uL Sodium 130 L (137-145) mmol/L Potassium 5.3 H (3.5-5.1) mmol/L Chloride 95 L (98-107) mmol/L Carbon Dioxide 27 (22-30) mmol/L Anion Gap 8 mmol/L BUN 46 H (9-20) mg/dL Creatinine 1.56 H (0.66-1.25) mg/dL Est GFR (CKD-EPI)AfAm 49 (>60 ml/min/1.73 sqM) Est GFR (CKD-EPI)NonAf 43 (>60 ml/min/1.73 sqM) Glucose 80 (74-99) mg/dL Plasma Lactic Acid [place] (0.7-2.0) mmol/L Calcium 8.7 (8.4-10.2) mg/dL Magnesium 1.6 (1.6-2.3) mg/dL Total Bilirubin 0.5 (0.2-1.3) mg/dL AST 30 (17-59) U/L ALT 17 (4-49) U/L Alkaline Phosphatase 62 (38-126) U/L Creatine Kinase 35 L (55-170) U/L Troponin I (0.000-0.034) ng/mL Total Protein 6.5 (6.3-8.2) g/dL Albumin 3.7 (3.5-5.0) g/dL Lipase 117 (23-300) U/L Coronavirus (PCR) Not Detected (Not Detectd) Influenza Type A RNA (Not Detectd) Influenza Type B (PCR) (Not Detectd) 03/19/22 03/19/22 03/19/22 Range/Units 09:48 09:48 10:45 WBC (3.8-10.6) k/uL RBC (4.30-5.90) m/uL Hgb (13.0-17.5) gm/dL Hct (39.0-53.0) % MCV (80.0-100.0) fL MCH (25.0-35.0) pg MCHC (31.0-37.0) g/dL RDW (11.5-15.5) % Plt Count (150-450) k/uL MPV Neutrophils % % Lymphocytes % % Monocytes % % Eosinophils % % Basophils % % Neutrophils # (1.3-7.7) k/uL Lymphocytes # (1.0-4.8) k/uL Monocytes # (0-1.0) k/uL Eosinophils # (0-0.7) k/uL Basophils # (0-0.2) k/uL Sodium (137-145) mmol/L Potassium (3.5-5.1) mmol/L Chloride (98-107) mmol/L Carbon Dioxide (22-30) mmol/L Anion Gap mmol/L BUN (9-20) mg/dL Creatinine (0.66-1.25) mg/dL Est GFR (CKD-EPI)AfAm (>60 ml/min/1.73 sqM) Est GFR (CKD-EPI)NonAf (>60 ml/min/1.73 sqM) Glucose (74-99) mg/dL Plasma Lactic Acid [place] 0.9 (0.7-2.0) mmol/L Calcium (8.4-10.2) mg/dL Magnesium (1.6-2.3) mg/dL Total Bilirubin (0.2-1.3) mg/dL AST (17-59) U/L ALT (4-49) U/L Alkaline Phosphatase (38-126) U/L Creatine Kinase (55-170) U/L Troponin I <0.012 (0.000-0.034) ng/mL Total Protein (6.3-8.2) g/dL Albumin (3.5-5.0) g/dL Lipase (23-300) U/L Coronavirus (PCR) (Not Detectd) Influenza Type A RNA Not Detected (Not Detectd) Influenza Type B (PCR) Not Detected (Not Detectd) - Radiology Data Radiology results: report reviewed (Imaging reviewed evidence of right upper lobe infiltrate), image reviewed Disposition Clinical Impression: Aspiration pneumonia, Dehydration, Failure to thrive Disposition: ADMITTED IP TO THIS [facility] Condition: Fair Referrals: Kenton Brown MD [Primary Care Provider] - 1-2 days Decision Date: 03/19/22 Decision Time: 12:00
[2022-03-19] MEDS ORDERED: SODIUM CHLORIDE 0.9% 500 ML 500 ML IV STA (09:27)
[2022-03-19] MEDS ORDERED: SODIUM CHLORIDE 0.9% 1,000 ML IV STA (09:27)
[2022-03-19] MEDS ORDERED: ONDANSETRON 4 MG/2 ML VIAL IVP STA (09:27)
[2022-03-19 09:56] LABS: Basophils # (A) 0.1 k/uL (0-0.2); Basophils % (A) 1 %; Eosinophils % (A) 0 %; HCT 34.3 % (39.0-53.0); Lymphocytes # (A) 1.6 k/uL (1.0-4.8); Lymphocytes % (A) 11 %; MCV 90.8 fL (80.0-100.0); Mean Platelet Volume 7.2; Monocytes # (A) 0.6 k/uL (0-1.0); Monocytes % (A) 4 %; Neutrophils # (A) 12.3 k/uL (1.3-7.7); Neutrophils % (A) 84 %; Platelet Count 260 k/uL (150-450); RBC 3.78 m/uL (4.30-5.90); RDW 14.4 % (11.5-15.5); WBC 14.6 k/uL (3.8-10.6)
--- NOTE | 2022-03-19 10:04 | XR ---
EXAMINATION TYPE: XR chest 2V DATE OF EXAM: 03/19/2022 9:58 AM COMPARISON: Chest radiographs from 12/15/2021. TECHNIQUE: XR chest 2V Frontal and lateral views of the chest. CLINICAL INDICATION:Male, 76 years old with history of Vomiting; FINDINGS: Lungs/Pleura: No pleural effusion or pneumothorax. Redemonstration noted in the right upper lobe. Tawana pical pleural thickening. Flattening of the diaphragms and increased interstitial. Heart/mediastinum: Cardiomediastinal silhouette is stable. Atherosclerotic calcifications are seen i n the aorta. Musculoskeletal: No acute osseous pathology. Midline sternotomy wires are noted and stable. Degenerat amber changes of the spine. IMPRESSION: Right upper lobe patchy airspace disease redemonstrated suspicious for pneumonia. COPD changes.
--- NOTE | 2022-03-19 10:06 | XR ---
EXAMINATION TYPE: XR KUB DATE OF EXAM: 03/19/2022 9:58 AM INDICATION: Patient age:Male; 76 years old; Reason for study: Vomiting; COMPARISON: CT chest abdomen and pelvis 09/07/2021. TECHNIQUE: One upright radiographic view of the abdomen was obtained with 2 radiographs. FINDINGS: PEG tube overlies the left upper quadrant. The bowel gas pattern is nonspecific without dil ated loops of small or large bowel. There is no evidence for pneumoperitoneum. The osseous structure s are intact. Degenerative changes of the visualized spine. Please refer to dedicated chest radiograp h of the same day for findings related to the chest. IMPRESSION: Nonspecific bowel gas pattern without radiographic evidence for acute process.
[2022-03-19 10:10] LABS: Albumin 3.7 g/dL (3.5-5.0); Calcium 8.7 mg/dL (8.4-10.2); Magnesium 1.6 mg/dL (1.6-2.3); Potassium 5.3 mmol/L (3.5-5.1); Total Bilirubin 0.5 mg/dL (0.2-1.3); Total Protein 6.5 g/dL (6.3-8.2)
[2022-03-19] MEDS ORDERED: PIPERACILLIN-TAZOBACTAM 3.375 GM in SODIUM CHLORIDE 0.9% 100 ML IVPB STA (11:27)
[2022-03-19] MEDS ORDERED: LEVOFLOXACIN 750MG-D5W PMX 750 MG in DEXTROSE/WATER 1 150ML.BAG IVPB STA (12:47)
[2022-03-19] MEDS ORDERED: PNEUMONIA PROTOCOL UTILIZED 1 EACH MISC PO PRN (12:47)
[2022-03-19] MEDS ORDERED: JEVITY CAL PEG/G-TUBE SCH (13:00)
[2022-03-19] MEDS ORDERED: NON FORMULARY DRUG (Jevity 1.5 Cal Liquid 1,000 ML Ml) PEG/G-TUBE SCH (13:00)
--- NOTE | 2022-03-19 13:19 | CT ---
EXAMINATION TYPE: CT abdomen pelvis wo con CT DLP: 372.9 mGycm, Automated exposure control for dose reduction was used. DATE OF EXAM: 03/19/2022 1:07 PM COMPARISON: CT chest abdomen and pelvis 09/07/2021 CLINICAL INDICATION:Male, 76 years old with history of Abdominal pain, acute, non localized TECHNIQUE: Standard CT of the abdomen and pelvis without IV or oral contrast. Lack of IV or oral co ntrast limits evaluation of solid and hollow organ viscera. Coronal and sagittal reformats were perfo rmed. FINDINGS: LOWER CHEST: Redemonstration of left lower lobe collapse with high-density material and bronchiectasi s. Bibasilar tree-in-bud micronodules redemonstrated. Similar small opacities in the right lower lobe . Coronary artery calcifications. ABDOMEN LIVER: Unremarkable noncontrast appearance GALLBLADDER AND BILE DUCTS: Unremarkable. PANCREAS: Unremarkable noncontrast appearance. SPLEEN: Unremarkable noncontrast appearance. ADRENAL GLANDS: Unremarkable noncontrast appearance. KIDNEYS AND URETERS: No hydronephrosis. Nonobstructive 2 mm left superior pole renal calculus. Left r enal pelvic ectasia versus left renal sinus cyst redemonstrated. PELVIS BLADDER: Unremarkable REPRODUCTIVE: Prostate is enlarged in size measuring 5.8 cm in transverse dimension. ABDOMEN & PELVIS STOMACH AND BOWEL: PEG tube with balloon in the stomach lumen. The duodenum is unremarkable. Retained oral contrast within the colon. No evidence of bowel obstruction. The appendix is not visualized how ever since no significant inflammatory changes within the right lower quadrant. PERITONEUM: No evidence of pneumoperitoneum or free fluid. VASCULATURE: Moderate atherosclerotic calcifications are present throughout the abdominal aorta and i ts branches. No evidence of aortic aneurysm. MUSCULOSKELETAL: No acute osseous abnormalities LYMPH NODES: No gross evidence for lymphadenopathy. SOFT TISSUE/ABDOMINAL WALL: Unremarkable IMPRESSION: 1. No acute abdominal/pelvic process the limitations of a noncontrast exam. 2. Nonobstructive left renal calculus. 3. Redemonstration of partially visualized pulmonary micronodule nodularity with small scattered opac ities and partial collapse of left lower lobe with bronchiectasis. Etiologies again include fungal/my cobacterial infection with metastatic lymphangitic spread not excluded.
[2022-03-19] MEDS ORDERED: MIDODRINE 5 MG TAB PEG/G-TUBE PRN (13:21)
[2022-03-19] MEDS: IPRATROPIUM-ALBUTEROL 3 ML NEB INHALATION SCH ×2 (15:23→19:45)
--- NOTE | 2022-03-19 15:23 | P.HPIM ---
History of Present Illness H&P Date: 03/19/22 Chief Complaint: Shortness breath worsening cough Patient is a 75-year-old male with a past medical history significant for COPD, hypothyroidism, hyperlipidemia aspiration pneumonia, CAD with prior CABG, COPD for cancer in 2005, with radical neck dissection, and chemoradiation treatment, PEG tube, secondary to severe oropharyngeal dysphagia, on pleasure foods. Follows with Dr. Mercer primary pulmonary Patient was last admitted from our facility 12/20/2021, for aspiration pneumonia ESBL on finalized sputum culture,, was seen by Dr. Gunderson at that time, to complete a 10 day of IV Invanz Patient comes back, secondary to increasing productive cough yellowish sputum, very mucoid, patient's pitting all the time, there is Copious amount of sputum, in the bucket when seen in the emergency room. Patient was seen with the daughter who provided most of the history patient has pressure foods, only a small amount 1 tablespoon to 2 tablespoons the most, home O2, 3 L nasal cannula and no home suction in the emergency room, right upper lobe infiltrate was seen CAT scan, WBC leukocytosis 14.6, sodium low 1:30, potassium slightly high 5.3, creatinine of 1.56, from a prior of 1.2 urinalysis negative, coronary virus negative PCR, influenza A and influenza B negative. Patient was in consultation I Dr. Gunderson, secondary to complicated pneumonia, Dr. Mercer pulmonary medicine temp 99, 02 3l 91% ASSESSMENT AND PLAN #1 acute hypoxia on chronic respiratory distress secondary to aspiration pneumonia, with recent ESBL documented in November 2021 to admission, start IV Invanz, IV Flagyl sputum culture final recommendations from Dr. Fonseca Continue pulmonary toilet, wean off oxygen as tolerated, bronchodilators, pulmonary consultation Dr. Mercer patient has copious secretions, patient might need bronchoscopy, however this needs to be decided by pulmonary medicine, consult with Dr. Gunderson #2 Aspiration pneumonia with sepsis aspiration precautions Continue ertapenem await infectious disease recommendations Sputum culture with ESBL IV Invanz Midline inserted PEG feedings for nutrition has pleasure foods #3 coronary artery disease status post CABG Continue aspirin and statin #,4 Esophageal howie suspected with oral howie, IV Diflucan 200 mg, most likely would be treatment for at least 3-4 weeks, patient is on Symbicort as well #5 COPD with exacerbation Continue bronchodilators, steroids #6 chronic kidney disease Monitor electrolytes, avoid nephrotoxins #7 hypothyroidism #8 history of throat cancer in 2006 with radical neck dissection and radiochemotherapy History of PEG tube due to chronic severe oropharyngeal dysphagia #9 status post PEG placement Continue tube feeds per nutrition #10 history of CVA. On aspirin and statin -DVT prophylaxis Review of Systems Constitutional: Reports as per HPI, Reports anorexia, Reports chills, Reports daytime sleepiness, Reports fatigue, Reports fever, Reports poor appetite, Reports weakness, Reports weight loss Ears, nose, mouth and throat: Reports as per HPI, Reports hoarseness, Reports odynophagia, Reports sore throat, Denies sinus pain, Denies sinus pressure Cardiovascular: Reports as per HPI, Reports dyspnea on exertion, Reports shortness of breath, Denies chest pain, Denies edema, Denies leg edema, Denies lightheadedness, Denies orthopnea, Denies palpitations, Denies paroxysmal nocturnal dyspnea, Denies syncope Respiratory: Reports cough, Reports cough with sputum, Reports dyspnea, Reports home oxygen, Reports pain on inspiration, Reports pleurisy, Reports respiratory infections, Reports wheezing, Denies sleep apnea Gastrointestinal: Reports as per HPI, Denies abdominal pain, Denies belching, Denies bloating, Denies change in bowel habits, Denies constipation, Denies hematochezia Genitourinary: Reports as per HPI Musculoskeletal: Reports as per HPI, Denies arm numbness/tingling, Denies atrophy, Denies fractures, Denies frequent falls, Denies gait dysfunction, Den ies hot joints, Denies leg numbness/tingling, Denies limitation of motion, Denies loss of height, Denies low back pain, Denies morning stiffness, Denies muscle cramps, Denies muscle weakness, Denies myalgias, Denies neck pain, Denies neck stiffness, Denies prior amputations, Denies redness of joints, Denies shooting arm pain, Denies shooting leg pain Integumentary: Reports as per HPI, Denies rash, Denies sores Neurological: Reports hearing difficulties, Denies ataxia, Denies change in speech, Denies double vision, Denies gait dysfunction, Denies head injury, Denies seizures, Denies syncope Psychiatric: Reports change in appetite, Reports sleep disturbances, Denies suicidal ideation Endocrine: Reports as per HPI, Reports cold intolerance, Reports fatigue, Denies low blood sugars, Denies nocturia Hematologic/Lymphatic: Reports as per HPI Allergic/Immunologic: Reports as per HPI, Reports persistent infections Past Medical History Past Medical History: Coronary Artery Disease (CAD), Cancer, Chest Pain / Angina, COPD, CVA/TIA, GERD/Reflux, Hearing Disorder / Deafness, Hyperlipidemia, Hypertension, Pneumonia, Renal Disease, Syncope, Thyroid Disorder, Vascular Disorder Additional Past Medical History / Comment(s): 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 Current lung congestion, coughing, wheezing ongoing. History of Any Multi-Drug Resistant Organisms: MRSA Date of last positivie culture/infection: 04/09/21 MDRO Source:: Sputum Past Surgical History: Coronary Bypass/CABG, Heart Catheterization, Hernia Repair, Orthopedic Surgery Additional Past Surgical History / Comment(s): 02/2017 CABG-4 vessel, angiograms, R internal caratid stented, 2005 radical neck dissection for pharyngeal cancer, L/R inguinal hernia repair, 3 sinus surgeries with benign polypectomy, colonoscopy, bilateral rotator cuff repairs. Past Anesthesia/Blood Transfusion Reactions: No Reported Reaction, Motion Sickness Past Psychological History: No Psychological Hx Reported Additional Psychological History / Comment(s): Pt resides with his spouse. He is independent. He is a [employer] . He was stationed in [facility]. He ambulates without device but owns a cand/walker. He has a peg tube that his spouse cares for. He has home oxygen and a nebulizer. He no longer drives, his spouse or family drive him places. Smoking Status: Former smoker Past Alcohol Use History: Rare Additional Past Alcohol Use History / Comment(s): Pt started smoking occasional cigars/pipe in 1965 and quit in 1984. Past Drug Use History: Marijuana - Past Family History Father Family Medical History: Cancer Additional Family Medical History / Comment(s): Father had lung cancer. He was a smoker. Mother Family Medical History: Congestive Heart Failure (CHF) Sister(s) Family Medical History: Cancer Medications and Allergies Home Medications Medication Instructions Recorded Confirmed Type Fluticasone Nasal [place] [Flonase 2 spr EA NOSTRIL BID 02/12/17 03/19/22 History Nasal [place]] Albuterol Inhaler [Ventolin Hfa 2 puff INHALATION RT-QID PRN 04/09/21 03/19/22 History Inhaler] Atorvastatin [Lipitor] 20 mg PEG/G-TUBE W/SUPPER 04/09/21 03/19/22 History Ipratropium-Albuterol Nebulize 3 ml INHALATION RT-QID 04/09/21 03/19/22 History [Duoneb 0.5 mg-3 mg/3 ml Soln] Montelukast [Singulair] 10 mg PEG/G-TUBE W/SUPPER 04/09/21 03/19/22 History Pantoprazole [Protonix] 40 mg PEG/G-TUBE BID 04/09/21 03/19/22 History Aspirin 81 mg PEG/G-TUBE DAILY 09/07/21 03/19/22 History Budesonide/Formoterol Fumarate 2 puff INHALATION RT-BID 09/07/21 03/19/22 History [Symbicort 160-4.5 Mcg Inhaler] Jevity 1.5 Mario Liquid 1 dose PEG/G-TUBE BID@0730,1300 09/07/21 03/19/22 History Jevity 2.0 Mario 1 dose PEG/G-TUBE 09/07/21 03/19/22 History TID@0730,1300,1630 Midodrine HCl [ProAmatine] 10 mg PEG/G-TUBE TID PRN 09/07/21 03/19/22 History Mirtazapine [Remeron] 15 mg PEG/G-TUBE HS 09/07/21 03/19/22 History Sodium Chloride Tab 1 gm PEG/G-TUBE BID 09/07/21 03/19/22 History predniSONE 5 mg PEG/G-TUBE DAILY 09/07/21 03/19/22 History rOPINIRole HCL [Requip] 0.25 mg PEG/G-TUBE BID 09/07/21 03/19/22 History Cetirizine HCl [Zyrtec] 10 mg PEG/G-TUBE DAILY 12/14/21 03/19/22 History Ferrous Sulfate [Iron (65 MG 325 mg PEG/G-TUBE DAILY 12/14/21 03/19/22 History Elemental)] Levothyroxine Sodium [Synthroid] 150 mcg PEG/G-TUBE DAILY 12/14/21 03/19/22 History Mirabegron [Myrbetriq] 25 mg PEG/G-TUBE HS 12/14/21 03/19/22 History Multivitamins, Thera [Multivitamin 1 tab PEG/G-TUBE DAILY 12/14/21 03/19/22 History (formulary)] Ondansetron Odt [Zofran Odt] 4 mg PEG/G-TUBE Q12H PRN 03/19/22 03/19/22 History Allergies Allergy/AdvReac Type Severity Reaction Status Date / Time No Known Allergies Allergy Verified 03/19/22 13:08 Physical Exam Vitals: Vital Signs Temp Pulse Pulse Resp BP BP Pulse Ox 03/19/22 14:00 98.3 F 90 135/70 91 L 03/19/22 13:15 93 18 141/79 92 L 03/19/22 11:06 97 22 148/74 96 03/19/22 10:17 99 F 78 18 124/78 94 L 03/19/22 08:45 98.2 F 94 16 90/48 95 Intake and Output 03/19/22 03/19/22 03/19/22 06:59 14:59 22:59 Other: Weight 54.431 kg - Constitutional General appearance: cooperative, mild distress, thin - EENT Eyes: EOMI, PERRLA, photophobia, dentition normal, normal appearance ENT: NA/AT, normal oropharynx - Neck Neck: normal ROM - Respiratory Respiratory: bilateral: CTA, negative: diminished, dullness, rales - Cardiovascular Abnormal Heart Sounds: no systolic murmur, no diastolic murmur - Gastrointestinal General gastrointestinal: no distended, no hepatomegaly, normal bowel sounds, no splenomegaly, no umbilical hernia - Integumentary Integumentary: decreased turgor, normal - Neurologic Neurologic: CNII-XII intact - Musculoskeletal Musculoskeletal: generalized weakness, strength equal bilaterally - Psychiatric Psychiatric: A&O x's 3, appropriate affect, intact judgment & insight Results CBC & Chem 7: 03/19/22 09:48 03/19/22 09:48 Labs: Abnormal Lab Results - Last 24 Hours (Table) 03/19/22 03/19/22 Range/Units 09:48 09:48 WBC 14.6 H (3.8-10.6) k/uL RBC 3.78 L (4.30-5.90) m/uL Hgb 11.0 L (13.0-17.5) gm/dL Hct 34.3 L (39.0-53.0) % Neutrophils # 12.3 H (1.3-7.7) k/uL Sodium 130 L (137-145) mmol/L Potassium 5.3 H (3.5-5.1) mmol/L Chloride 95 L (98-107) mmol/L BUN 46 H (9-20) mg/dL Creatinine 1.56 H (0.66-1.25) mg/dL Creatine Kinase 35 L (55-170) U/L Thrombosis Risk Factor Assmnt - DVT/VTE Prophylaxis DVT/VTE Prophylaxis: Pharmacologic Prophylaxis ordered - Choose All That Apply Each Factor Represents 1 point: Abnormal pulmonary function (COPD) Each Risk Factor Represents 2 Points: Malignancy Each Risk Factor Represents 3 Points: Age 75 years or older Thrombosis Risk Factor Assessment Total Risk Factor Score: 6 Thrombosis Risk Factor Assessment Level: High Risk
[2022-03-19] MEDS ORDERED: PIPERACILLIN-TAZOBACTAM 3.375 GM in SODIUM CHLORIDE 0.9% 100 ML IVPB SCH (16:00)
[2022-03-19] MEDS: ERTAPENEM 1 GM in SODIUM CHLORIDE 0.9% 50 ML IVPB SCH (16:14)
[2022-03-19] MEDS: guaiFENesin SYRUP 100MG/5ML 200 MG/10 ML CUP PO SCH ×2 (16:31→17:41)
[2022-03-19] MEDS: methylPREDNISolone SOD SUCCI 125 MG/2 ML VIAL IV SCH ×2 (16:42→16:43)
[2022-03-19] MEDS ORDERED: PANTOPRAZOLE 40 MG TABLET PO SCH (17:30)
[2022-03-19] MEDS: FLUCONAZOLE IN NACL,ISO-OSM 200 MG in SALINE 1 100ML.BAG IVPB SCH (17:42)
[2022-03-19] MEDS: MONTELUKAST 10 MG TAB PEG/G-TUBE SCH (17:46)
[2022-03-19] MEDS: ATORVASTATIN 20 MG TAB PEG/G-TUBE SCH (17:46)
[2022-03-19] MEDS: BUDESONIDE 0.5 MG/2 ML NEBU INHALATION SCH (19:45)
[2022-03-19] MEDS ORDERED: SYMBICORT 160-4.5 MCG INHALER INHALATION SCH (20:00)
[2022-03-19] MEDS: Mirabegron [Myrbetriq] PEG/G-TUBE SCH (21:14)
[2022-03-19] MEDS: metroNIDAZOLE-NS PMX 500 MG in SALINE 1 100ML.BAG IVPB SCH (21:21)
[2022-03-19] MEDS: FLUTICASONE 50MCG/SPRAY NASAL 16GM EA NOSTRIL SCH (22:08)
[2022-03-19] MEDS: MIRTAZAPINE 15 MG TAB PEG/G-TUBE SCH (22:08)
[2022-03-19] MEDS: SODIUM CHLORIDE TAB 1 GM TAB PEG/G-TUBE SCH (22:09)
[2022-03-20] MEDS: methylPREDNISolone SOD SUCCI 125 MG/2 ML VIAL IV SCH ×4 (00:15→17:24)
[2022-03-20] MEDS: PANTOPRAZOLE 40 MG/10 ML VIAL IVP SCH ×3 (00:15→21:25)
[2022-03-20] MEDS: metroNIDAZOLE-NS PMX 500 MG in SALINE 1 100ML.BAG IVPB SCH ×4 (01:07→17:25)
[2022-03-20] MEDS: guaiFENesin SYRUP 100MG/5ML 200 MG/10 ML CUP PO SCH ×4 (01:08→17:31)
--- NOTE | 2022-03-20 07:34 | XR ---
EXAMINATION TYPE: XR chest 2V DATE OF EXAM: 03/20/2022 COMPARISON: 03/19/2022, 12/15/2021 INDICATION: Pneumonia TECHNIQUE: Frontal and lateral views of the chest are obtained. FINDINGS: The heart size is normal. The pulmonary vasculature is normal. There is stable ill-defined increased density at the right apex. There is left apical thickening pres ent previously. Sternotomy wires from prior CABG are evident.. IMPRESSION: 1. No acute pulmonary process. 2. Chronic changes lung apices.
[2022-03-20 07:44] LABS: Basophils % (A) 0 %; Eosinophils % (A) 0 %; HCT 33.2 % (39.0-53.0); HGB 10.5 gm/dL (13.0-17.5); Hypochromasia Slight; Lymphocytes # (A) 0.6 k/uL (1.0-4.8); Lymphocytes % (A) 7 %; MCH 29.2 pg (25.0-35.0); MCHC 31.8 g/dL (31.0-37.0); MCV 91.9 fL (80.0-100.0); Mean Platelet Volume 7.3; Monocytes # (A) 0.1 k/uL (0-1.0); Monocytes % (A) 1 %; Neutrophils # (A) 7.1 k/uL (1.3-7.7); Neutrophils % (A) 91 %; Platelet Count 243 k/uL (150-450); RBC 3.61 m/uL (4.30-5.90); RDW 14.4 % (11.5-15.5); WBC 7.9 k/uL (3.8-10.6)
[2022-03-20 07:57] LABS: African American GFR (CKD) 77 (>60 ml/min/1.73 sqM); Anion Gap 12 mmol/L; Blood Urea Nitrogen 39 mg/dL (9-20); Calcium 8.4 mg/dL (8.4-10.2); Carbon Dioxide 22 mmol/L (22-30); Chloride 97 mmol/L (98-107); Glucose 139 mg/dL (74-99); Non-African American GFR(CKD) 66 (>60 ml/min/1.73 sqM); Sodium 131 mmol/L (137-145)
[2022-03-20] MEDS: BUDESONIDE 0.5 MG/2 ML NEBU INHALATION SCH ×2 (07:59→20:04)
[2022-03-20] MEDS: IPRATROPIUM-ALBUTEROL 3 ML NEB INHALATION SCH ×4 (07:59→20:04)
[2022-03-20 08:26] LABS: Potassium 5.3 mmol/L (3.5-5.1)
--- NOTE | 2022-03-20 08:35 | P.CONS ---
History of Present Illness - Reason for Consult Consult date: 03/19/22 Pneumonia aspiration, Radha Requesting physician: Anne Castillo - Chief Complaint Shortness of breath x few days - History of Present Illness Patient is a 76-year-old male with a past medical history significant for COPD coronary artery disease, tonsillopharyngeal cancer s/p resection PEG tube for feeding he did have admission in November 2021 for an aspiration pneumonia sputum was positive for ESBL treated with Invanz patient is now presenting back to the [facility] ER for evaluation of increasing shortness of breath apparently the patient did have an episode of vomiting about 4 days ago mappable started having increasing shortness of breath patient did have a cough with some purulent sputum no hemoptysis patient denies having any chest pain no abdominal pain no diarrhea on presentation to the hospital patient did have a low-grade fever of 99 F patient was hypoxic and need for supplemental oxygen did have white count of 14.6 with a left shift BUN and creatinine was mildly elevated liver enzymes are normal influenza and COVID PCR was negative. Culture has been obtained patient did have a chest x-ray right upper lobe opacity suspicious for pneumonia patient also have a CT abdominal pelvis no acute intra-abdominal process patient was started on Invanz infectious disease was consulted for further management of antibiotic therapy Review of Systems Positive point has been mentioned in the HPI rest of the systems are negative Past Medical History Past Medical History: Coronary Artery Disease (CAD), Cancer, Chest Pain / Angina, COPD, CVA/TIA, GERD/Reflux, Hearing Disorder / Deafness, Hyperlipidemia, Hypertension, Pneumonia, Renal Disease, Syncope, Thyroid Disorder, Vascular Disorder Additional Past Medical History / Comment(s): 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 Current lung congestion, coughing, wheezing ongoing. History of Any Multi-Drug Resistant Organisms: MRSA Year Discovered:: 04/09/21 MDRO Source:: Sputum Past Surgical History: Coronary Bypass/CABG, Heart Catheterization, Hernia Repair, Orthopedic Surgery Additional Past Surgical History / Comment(s): 02/2017 CABG-4 vessel, angiograms, R internal caratid stented, 2006 radical neck dissection for pharyngeal cancer, L/R inguinal hernia repair, 3 sinus surgeries with benign polypectomy, colonoscopy, bilateral rotator cuff repairs. Past Anesthesia/Blood Transfusion Reactions: No Reported Reaction, Motion Sickness Past Psychological History: No Psychological Hx Reported Additional Psychological History / Comment(s): Pt resides with his spouse. He is independent. He is a [employer] . He was stationed in [place]. He ambulates without device but owns a cand/walker. He has a peg tube that his spouse cares for. He has home oxygen and a nebulizer. He no longer drives, his spouse or family drive him places. Smoking Status: Former smoker Past Alcohol Use History: Rare Additional Past Alcohol Use History / Comment(s): Pt started smoking occasional cigars/pipe in 1964 and quit in 1984. Past Drug Use History: Marijuana - Past Family History Father Family Medical History: Cancer Additional Family Medical History / Comment(s): Father had lung cancer. He was a smoker. Mother Family Medical History: Congestive Heart Failure (CHF) Sister(s) Family Medical History: Cancer Medications and Allergies Home Medications Medication Instructions Recorded Confirmed Type Fluticasone Nasal [place] [Flonase 2 spr EA NOSTRIL BID 02/12/17 03/19/22 History Nasal [place]] Albuterol Inhaler [Ventolin Hfa 2 puff INHALATION RT-QID PRN 04/09/21 03/19/22 History Inhaler] Atorvastatin [Lipitor] 20 mg PEG/G-TUBE W/SUPPER 04/09/21 03/19/22 History Ipratropium-Albuterol Nebulize 3 ml INHALATION RT-QID 04/09/21 03/19/22 History [Duoneb 0.5 mg-3 mg/3 ml Soln] Montelukast [Singulair] 10 mg PEG/G-TUBE W/SUPPER 04/09/21 03/19/22 History Pantoprazole [Protonix] 40 mg PEG/G-TUBE BID 04/09/21 03/19/22 History Aspirin 81 mg PEG/G-TUBE DAILY 09/07/21 03/19/22 History Budesonide/Formoterol Fumarate 2 puff INHALATION RT-BID 09/07/21 03/19/22 History [Symbicort 160-4.5 Mcg Inhaler] Jevity 1.5 Mario Liquid 1 dose PEG/G-TUBE BID@0730,1300 09/07/21 03/19/22 History Jevity 2.0 Mario 1 dose PEG/G-TUBE 09/07/21 03/19/22 History TID@0730,1300,1630 Midodrine HCl [ProAmatine] 10 mg PEG/G-TUBE TID PRN 09/07/21 03/19/22 History Mirtazapine [Remeron] 15 mg PEG/G-TUBE HS 09/07/21 03/19/22 History Sodium Chloride Tab 1 gm PEG/G-TUBE BID 09/07/21 03/19/22 History predniSONE 5 mg PEG/G-TUBE DAILY 09/07/21 03/19/22 History rOPINIRole HCL [Requip] 0.25 mg PEG/G-TUBE BID 09/07/21 03/19/22 History Cetirizine HCl [Zyrtec] 10 mg PEG/G-TUBE DAILY 12/14/21 03/19/22 History Ferrous Sulfate [Iron (65 MG 325 mg PEG/G-TUBE DAILY 12/14/21 03/19/22 History Elemental)] Levothyroxine Sodium [Synthroid] 150 mcg PEG/G-TUBE DAILY 12/14/21 03/19/22 History Mirabegron [Myrbetriq] 25 mg PEG/G-TUBE HS 12/14/21 03/19/22 History Multivitamins, Thera [Multivitamin 1 tab PEG/G-TUBE DAILY 12/14/21 03/19/22 History (formulary)] Ondansetron Odt [Zofran Odt] 4 mg PEG/G-TUBE Q12H PRN 03/19/22 03/19/22 History Allergies Allergy/AdvReac Type Severity Reaction Status Date / Time No Known Allergies Allergy Verified 03/19/22 13:08 Physical Exam Vitals: Vital Signs Temp Pulse Pulse Resp BP BP Pulse Ox 03/19/22 15:32 84 03/19/22 15:24 88 88 L 03/19/22 14:00 98.3 F 90 135/70 91 L 03/19/22 13:15 93 18 141/79 92 L 03/19/22 11:06 97 22 148/74 96 03/19/22 10:17 99 F 78 18 124/78 94 L 03/19/22 08:45 98.2 F 94 16 90/48 95 Intake and Output 03/19/22 03/19/22 03/19/22 06:59 14:59 22:59 Other: Weight 54.431 kg GENERAL DESCRIPTION: An elderly male lying in bed, no distress. No tachypnea or accessory muscle of respiration use. HEENT: Shows Pallor , no scleral icterus. Oral mucous membrane is dry. No pharyngeal erythema or thrush NECK: Trachea central, no thyromegaly. LUNGS: Unlabored breathing. Coarse breath sounds bilaterally HEART: S1, S2, regular rate and rhythm. No loud murmur ABDOMEN: Soft, no tenderness , guarding or rigidity, no organomegaly EXTREMITIES: No edema of feet. SKIN: No rash, no masses palpable. NEUROLOGICAL: The patient is awake, alert, oriented x3, mood and affect normal. Results CBC & Chem 7: 03/20/22 06:25 03/20/22 06:25 Labs: Abnormal Lab Results - Last 24 Hours (Table) 03/19/22 03/19/22 Range/Units 09:48 09:48 WBC 14.6 H (3.8-10.6) k/uL RBC 3.78 L (4.30-5.90) m/uL Hgb 11.0 L (13.0-17.5) gm/dL Hct 34.3 L (39.0-53.0) % Neutrophils # 12.3 H (1.3-7.7) k/uL Sodium 130 L (137-145) mmol/L Potassium 5.3 H (3.5-5.1) mmol/L Chloride 95 L (98-107) mmol/L BUN 46 H (9-20) mg/dL Creatinine 1.56 H (0.66-1.25) mg/dL Creatine Kinase 35 L (55-170) U/L Assessment and Plan (1) Aspiration pneumonia Current Visit: Yes Status: Acute Code(s): J69.0 - PNEUMONITIS DUE TO INHALATION OF FOOD AND VOMIT SNOMED Code(s): 297986944 Plan: 1patient presented to hospital with increasing shortness of breath cough with some purulent sputum with respiratory evidence of right-sided pneumonia high clinical suspicion for aspiration etiology with clear history of ESBL pathogen could be ESBL all other gram-negative pathogen. 2sputum culture has been obtained and those will be followed. 3patient to continue with Invanz 1 g daily while waiting for the culture to finalize. We will follow on clinical condition and cultures to further adjust medication if needed Thank you for this consultation will follow this patient along with you
[2022-03-20] MEDS: ERTAPENEM 1 GM in SODIUM CHLORIDE 0.9% 50 ML IVPB SCH (08:50)
[2022-03-20] MEDS: CALCIUM CARBONATE 500 MG CHEWABLE PO SCH (08:53)
[2022-03-20] MEDS: LEVOTHYROXINE 75 MCG TAB PEG/G-TUBE SCH (08:53)
[2022-03-20] MEDS: LORATADINE 10 MG TAB PEG/G-TUBE SCH (08:53)
[2022-03-20] MEDS: ASPIRIN 81 MG PEG/G-TUBE SCH (08:53)
[2022-03-20] MEDS: FERROUS SULFATE 325 MG TAB PO SCH (08:53)
[2022-03-20] MEDS: FLUTICASONE 50MCG/SPRAY NASAL 16GM EA NOSTRIL SCH ×2 (08:54→21:24)
[2022-03-20] MEDS: polyethylene glycoL 3350 17 GM POWD.PACK PEG/G-TUBE SCH (08:54)
[2022-03-20] MEDS: MULTIVITAMINS, THERA 1 EACH TAB PEG/G-TUBE SCH (08:54)
[2022-03-20] MEDS: SODIUM CHLORIDE TAB 1 GM TAB PEG/G-TUBE SCH ×2 (08:55→21:24)
[2022-03-20] MEDS ORDERED: predniSONE 10 MG TAB PEG/G-TUBE SCH (09:00)
[2022-03-20] MEDS: FLUCONAZOLE IN NACL,ISO-OSM 200 MG in SALINE 1 100ML.BAG IVPB SCH (09:41)
[2022-03-20] MEDS ORDERED: IPRATROPIUM-ALBUTEROL 3 ML NEB INHALATION PRN (10:14)
--- NOTE | 2022-03-20 12:21 | P.CNPUL ---
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 A few episodes of nausea and vomiting, and decreased oral intake. Patient has had previous episodes of aspiration pneumonia. He had a phone consultation with his doctor 2 days ago and was placed on Zofran for the nausea and vomiting however he was getting progressively worse. Chest x-ray showing a right upper lobe patchy airspace disease suspicious for pneumonia, and background COPD changes. KUB of abdomen showed nonspecific bowel gas pattern without evidence of acute process. His lab evaluation showed leukocytosis with a white blood cell count of 14.6, hemoglobin was 11.0, sodium was 1:30, potassium is 5.3, chloride is 95, BUN is 46 and creatinine is 1.56, LFTs are within normal limits, lipase was 117 within normal limits, serum protein 6 on a level was 0.41. Patient was tested negative for clue with 19 and influenza A and B. Patient had a history of pneumonia related to MRSA and ESBL Klebsiella pneumonia, and is currently on ertapenem and Flagyl for antibiotic coverage. Initially received a dose of Levaquin and Zosyn in the emergency department. ID service has been consulted. CT of the abdomen and pelvis showed no acute abdominal/pelvic process, nonobstructive left renal Pelvis, and partially visualize pulmonary micronodules nodularity with small scattered opacities and partial collapse of the left lower lobe with bronchiectasis with possible etiologies including fungal/mycobacteria infection with metastatic lymphangitic spread not excluded. Currently patient is resting comfortably in bed, he is on 4 L of oxygen pulse ox of 91% his been afebrile, breathing comfortably. He is receiving tube feedings with Jevity at 55 ML per hour. Has had no acute events overnight. Review of Systems All systems: negative Constitutional: Reports anorexia, Reports chills, Denies fever Eyes: denies blurred vision, denies pain Ears, nose, mouth and throat: Denies headache, Denies sore throat Cardiovascular: Denies chest pain, Denies shortness of breath Respiratory: Reports dyspnea, Denies cough Gastrointestinal: Reports nausea, Reports vomiting, Denies abdominal pain, Denies diarrhea Musculoskeletal: Denies myalgias Integumentary: Denies pruritus, Denies rash Neurological: Denies numbness, Denies weakness Psychiatric: Denies anxiety, Denies depression Endocrine: Denies fatigue, Denies weight change Past Medical History Past Medical History: Coronary Artery Disease (CAD), Cancer, Chest Pain / Angina, COPD, CVA/TIA, GERD/Reflux, Hearing Disorder / Deafness, Hyperlipidemia, Hypertension, Pneumonia, Renal Disease, Syncope, Thyroid Disorder, Vascular Disorder Additional Past Medical History / Comment(s): 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 Current lung congestion, coughing, wheezing ongoing. History of Any Multi-Drug Resistant Organisms: MRSA Date of last positivie culture/infection: 04/09/21 MDRO Source:: Sputum Past Surgical History: Coronary Bypass/CABG, Heart Catheterization, Hernia Repair, Orthopedic Surgery Additional Past Surgical History / Comment(s): 02/2017 CABG-4 vessel, angiograms, R internal caratid stented, 2005 radical neck dissection for pharyngeal cancer, L/R inguinal hernia repair, 3 sinus surgeries with benign polypectomy, colonoscopy, bilateral rotator cuff repairs. Past Anesthesia/Blood Transfusion Reactions: No Reported Reaction, Motion Sickness Past Psychological History: No Psychological Hx Reported Additional Psychological History / Comment(s): Pt resides with his spouse. He is independent. He is a [employer] . He was stationed in [facility]. He ambulates without device but owns a cand/walker. He has a peg tube that his spouse cares for. He has home oxygen and a nebulizer. He no longer drives, his spouse or family drive him places. Smoking Status: Former smoker Past Alcohol Use History: Rare Additional Past Alcohol Use History / Comment(s): Pt started smoking occasional cigars/pipe in 1964 and quit in 1984. Past Drug Use History: Marijuana - Past Family History Father Family Medical History: Cancer Additional Family Medical History / Comment(s): Father had lung cancer. He was a smoker. Mother Family Medical History: Congestive Heart Failure (CHF) Sister(s) Family Medical History: Cancer Medications and Allergies Home Medications Medication Instructions Recorded Confirmed Type Fluticasone Nasal [place] [Flonase 2 spr EA NOSTRIL BID 02/12/17 03/19/22 History Nasal [place]] Albuterol Inhaler [Ventolin Hfa 2 puff INHALATION RT-QID PRN 04/09/21 03/19/22 History Inhaler] Atorvastatin [Lipitor] 20 mg PEG/G-TUBE W/SUPPER 04/09/21 03/19/22 History Ipratropium-Albuterol Nebulize 3 ml INHALATION RT-QID 04/09/21 03/19/22 History [Duoneb 0.5 mg-3 mg/3 ml Soln] Montelukast [Singulair] 10 mg PEG/G-TUBE W/SUPPER 04/09/21 03/19/22 History Pantoprazole [Protonix] 40 mg PEG/G-TUBE BID 04/09/21 03/19/22 History Aspirin 81 mg PEG/G-TUBE DAILY 09/07/21 03/19/22 History Budesonide/Formoterol Fumarate 2 puff INHALATION RT-BID 09/07/21 03/19/22 History [Symbicort 160-4.5 Mcg Inhaler] Jevity 1.5 Mario Liquid 1 dose PEG/G-TUBE BID@0730,1300 09/07/21 03/19/22 History Jevity 2.0 Mario 1 dose PEG/G-TUBE 09/07/21 03/19/22 History TID@0730,1300,1630 Midodrine HCl [ProAmatine] 10 mg PEG/G-TUBE TID PRN 09/07/21 03/19/22 History Mirtazapine [Remeron] 15 mg PEG/G-TUBE HS 09/07/21 03/19/22 History Sodium Chloride Tab 1 gm PEG/G-TUBE BID 09/07/21 03/19/22 History predniSONE 5 mg PEG/G-TUBE DAILY 09/07/21 03/19/22 History rOPINIRole HCL [Requip] 0.25 mg PEG/G-TUBE BID 09/07/21 03/19/22 History Cetirizine HCl [Zyrtec] 10 mg PEG/G-TUBE DAILY 12/14/21 03/19/22 History Ferrous Sulfate [Iron (65 MG 325 mg PEG/G-TUBE DAILY 12/14/21 03/19/22 History Elemental)] Levothyroxine Sodium [Synthroid] 150 mcg PEG/G-TUBE DAILY 12/14/21 03/19/22 History Mirabegron [Myrbetriq] 25 mg PEG/G-TUBE HS 12/14/21 03/19/22 History Multivitamins, Thera [Multivitamin 1 tab PEG/G-TUBE DAILY 12/14/21 03/19/22 History (formulary)] Ondansetron Odt [Zofran Odt] 4 mg PEG/G-TUBE Q12H PRN 03/19/22 03/19/22 History Allergies Allergy/AdvReac Type Severity Reaction Status Date / Time No Known Allergies Allergy Verified 03/19/22 13:08 Physical Exam Vitals: Vital Signs Temp Pulse Pulse Resp BP BP Pulse Ox 03/20/22 11:44 85 03/20/22 11:34 84 03/20/22 09:30 17 03/20/22 08:16 97.8 F 88 17 143/75 91 L 03/20/22 08:13 82 03/20/22 07:59 80 94 L 03/20/22 02:00 98.0 F 96 19 168/88 95 03/19/22 20:01 82 03/19/22 20:00 98.2 F 82 17 92/56 92 L 03/19/22 19:46 84 03/19/22 15:32 84 03/19/22 15:24 88 88 L 03/19/22 14:00 98.3 F 90 135/70 91 L 03/19/22 13:15 93 18 141/79 92 L Intake and Output 03/19/22 03/20/22 03/20/22 22:59 06:59 14:59 Output Total 200 Balance -200 Output: Urine 200 Other: Voiding Method Urinal # Voids 1 # Bowel Movements 0 Weight 57 kg GENERAL EXAM: Alert, very pleasant, frail looking 75-year-old white male on 4 L of oxygen with pulse ox of 91% comfortable in no apparent distress. HEAD: Normocephalic/atraumatic. EYES: Normal reaction of pupils, equal size. Conjunctiva pink, sclera white. NOSE: Clear with pink turbinates. THROAT: No erythema or exudates. NECK: No masses, no JVD, no thyroid enlargement, no adenopathy. CHEST: No chest wall deformity. Symmetrical expansion. LUNGS: Equal air entry with no crackles, wheeze, rhonchi or dullness. CVS: Regular rate and rhythm, normal S1 and S2, no gallops, no murmurs, no rubs ABDOMEN: Soft, nontender. No hepatosplenomegaly, normal bowel sounds, no guard ing or rigidity. PEG tube is in place, and patient has Jevity tube feedings infusing at a rate of 55 ML per hour EXTREMITIES: No clubbing, no edema, no cyanosis, 2+ pulses and upper and lower extremities. MUSCULOSKELETAL: Muscle strength and tone normal. SPINE: No scoliosis or deformity SKIN: No rashes CENTRAL NERVOUS SYSTEM: Alert and oriented -3. No focal deficits, tone is normal in all 4 extremities. PSYCHIATRIC: Alert and oriented -3. Appropriate affect. Intact judgment and insight. Results - Laboratory Findings CBC and BMP: 03/20/22 06:25 03/20/22 06:25 Abnormal lab findings: Abnormal Labs 03/19/22 03/19/22 03/19/22 09:48 09:48 16:48 WBC 14.6 H RBC 3.78 L Hgb 11.0 L Hct 34.3 L Neutrophils # 12.3 H Lymphocytes # Sodium 130 L Potassium 5.3 H Chloride 95 L BUN 46 H Creatinine 1.56 H Glucose Creatine Kinase 35 L Procalcitonin 0.41 H 03/20/22 03/20/22 06:25 06:25 WBC RBC 3.61 L Hgb 10.5 L Hct 33.2 L Neutrophils # Lymphocytes # 0.6 L Sodium 131 L Potassium 5.3 H Chloride 97 L BUN 39 H Creatinine Glucose 139 H Creatine Kinase Procalcitonin - Diagnostic Findings Chest x-ray: report reviewed, image reviewed Additional studies: CT of the abdomen and pelvis, EKG and KUB of the abdomen reviewed Assessment and Plan Plan: Assessment: #1. Acute recurrent aspiration related pneumonia, COVID-19 PCR and influenza A and B were negative. Initial chest x-ray showed right upper lobe patchy airspace disease #2. Nausea and vomiting. KUB of the abdomen and abdominal and pelvis CT showing no acute abdominal and pelvic process and nonobstructive left renal calculus #3. History of MRSA and ESBL Klebsiella pneumonia #4. Acute hypoxic respiratory failure related to recurrent aspiration #5. History of recurrent aspiration post-PEG tube insertion #6. History of esophageal stricture requiring esophageal dietitian #7. History of herpetic esophagitis #8. 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 Coronary artery disease post coronary artery bypass grafting #10. Bilateral carotid artery stenosis post-stenting #11. Hypothyroidism #12. Former smoker #13. GERD/reflux #14. Acute kidney injury, recovered Plan: Continue with antibiotics of ID service recommendation Add nebulized bronchodilators Continue IV steroids Send sputum for culture Enteral feedings per PEG tube Maintain aspiration precautions We'll continue medical treatment I have personally seen and examined the patient, performed the documentation and the assessment and plan as written. Number of minutes spent on the visit: [15] Time with Patient: Greater than 30
--- NOTE | 2022-03-20 15:10 | P.PN ---
Subjective Progress Note Date: 03/20/22 Patient is a 75-year-old male with a past medical history significant for COPD, hypothyroidism, hyperlipidemia aspiration pneumonia, CAD with prior CABG, COPD for cancer in 2005, with radical neck dissection, and chemoradiation treatment, PEG tube, secondary to severe oropharyngeal dysphagia, on pleasure foods. Follows with Dr. Mercer primary pulmonary Patient was last admitted from our facility 12/20/2021, for aspiration pneumonia ESBL on finalized sputum culture,, was seen by Dr. Gunderson at that time, to complete a 10 day of IV Invanz Patient comes back, secondary to increasing productive cough yellowish sputum, very mucoid, patient's pitting all the time, there is Copious amount of sputum, in the bucket when seen in the emergency room. Patient was seen with the daughter who provided most of the history patient has pressure foods, only a small amount 1 tablespoon to 2 tablespoons the most, home O2, 3 L nasal cannula and no home suction in the emergency room, right upper lobe infiltrate was seen CAT scan, WBC leukocytosis 14.6, sodium low 1:30, potassium slightly high 5.3, creatinine of 1.56, from a prior of 1.2 urinalysis negative, coronary virus negative PCR, influenza A and influenza B negative. Patient was in consultation I Dr. Gunderson, secondary to complicated pneumonia, Dr. Mercer pulmonary medicine temp 99, 02 3l 91% 03/20/2022 Patient evaluated today sitting up in a chair. No acute events overnight. He reports that his breathing has improved. He continues with PEG tube infusing, and is NPO. Chest xray follow up today showing no acute pulmonary process, with chronic changes in lung apices. Labs today showing sodium 131, potassium 5.3, creatinine 1.08, white count has normalized it is now 7.9, hgb 10.5. Procalcitonin level found to be 0.41. We will add gentle hydration overnight and repeat labs tomorrow. Sputum culture is pending. Pulmonary has seen patient in consultation today. Continues on duoneb treatments, IV invanz, IV fluconazole, IV metronidazole, and IV solu-medrol. Blood pressure on the lower side this afternoon 93/57, on 4L nasal cannula. Review of Systems Constitutional: Denied any fatigue denied any fever. Cardio vascular: denied any chest pain, palpitations Gastrointestinal: denied any nausea, vomiting, diarrhea Pulmonary: Denied any shortness of breath cough Neurologic denied any new focal deficits All inpatient medications were reviewed and appropriate changes in these medications as dictated in the interval history and assessment and plan. PHYSICAL EXAMINATION: GENERAL: The patient is alert and oriented x3, not in any acute distress. Well developed, well nourished. HEENT: Pupils are round and equally reacting to light. EOMI. No scleral icterus. No conjunctival pallor. Normocephalic, atraumatic. No pharyngeal erythema. No thyromegaly. CARDIOVASCULAR: S1 and S2 present. No murmurs, rubs, or gallops. PULMONARY: Chest is clear to auscultation, no wheezing or crackles. ABDOMEN: Soft, nontender, nondistended, normoactive bowel sounds. No palpable organomegaly. Had to present MUSCULOSKELETAL: No joint swelling or deformity. EXTREMITIES: No cyanosis, clubbing, or pedal edema. NEUROLOGICAL: Gross neurological examination did not reveal any focal deficits. SKIN: No rashes. ASSESSMENT AND PLAN #1 acute hypoxia on chronic respiratory distress secondary to aspiration pneumonia, with recent ESBL documented in November 2021 to admission, start IV Invanz, IV Flagyl sputum culture final recommendations from Dr. Gunderson Continue pulmonary toilet, wean off oxygen as tolerated, bronchodilators, Pulmonary and Infectious disease are on consultation #2 Aspiration pneumonia with sepsis aspiration precautions Continue ertapenem, Infectious disease is on consultation Sputum culture with ESBL IV Invanz Midline inserted PEG feedings for nutrition Patient currently NPO, previously was on pleasure feedings. #3 coronary artery disease status post CABG Continue aspirin and statin #4 Esophageal howie suspected with oral howie, IV Diflucan 200 mg, most likely would be treatment for at least 3-4 weeks, patient is on Symbicort as well #5 COPD with exacerbation Continue bronchodilators, steroids #6 chronic kidney disease Monitor electrolytes, avoid nephrotoxins #7 hypothyroidism #8 history of throat cancer in 2005 with radical neck dissection and radiochemotherapy History of PEG tube due to chronic severe oropharyngeal dysphagia #9 status post PEG placement Continue tube feeds per nutrition #10 history of CVA. On aspirin and statin -DVT prophylaxis The impression and plan of care has been dictated by Yajaira Cox Nurse Practitioner as directed. Dr. Sandra MD I have performed a history and physical examination and medical decision making of this patient, discussed the same with the dictator, and agree with the dictators assessment and plan as written, documented as a scribe. Based on total visit time, I have performed more than 50% of this visit. Objective - Vital Signs Vital signs: Vital Signs Temp 97.8 F 03/20/22 08:16 Pulse 85 03/20/22 11:44 Resp 17 03/20/22 09:30 BP 143/75 03/20/22 08:16 Pulse Ox 91 L 03/20/22 08:16 FiO2 Intake & Output 03/19/22 03/20/22 03/20/22 18:59 06:59 18:59 Output Total 200 Balance -200 Weight 54.431 kg 57 kg Output: Urine 200 Other: Voiding Method Urinal # Voids 1 # Bowel Movements 0 - Labs CBC & Chem 7: 03/20/22 06:25 03/20/22 06:25 Labs: Abnormal Lab Results - Last 24 Hours (Table) 03/19/22 03/20/22 03/20/22 Range/Units 16:48 06:25 06:25 RBC 3.61 L (4.30-5.90) m/uL Hgb 10.5 L (13.0-17.5) gm/dL Hct 33.2 L (39.0-53.0) % Lymphocytes # 0.6 L (1.0-4.8) k/uL Sodium 131 L (137-145) mmol/L Potassium 5.3 H (3.5-5.1) mmol/L Chloride 97 L (98-107) mmol/L BUN 39 H (9-20) mg/dL Glucose 139 H (74-99) mg/dL Procalcitonin 0.41 H (0.02-0.09) ng/mL Microbiology - Last 24 Hours (Table) 03/19/22 14:39 Gram Stain - Preliminary Sputum Sputum Culture - Preliminary Assessment and Plan Time with Patient: Less than 30
[2022-03-20 15:11] VITALS: BMI 18.0
[2022-03-20] MEDS: MONTELUKAST 10 MG TAB PEG/G-TUBE SCH (17:24)
[2022-03-20] MEDS: ATORVASTATIN 20 MG TAB PEG/G-TUBE SCH (17:25)
[2022-03-20] MEDS: SODIUM CHLORIDE 0.9% 1,000 ML IV SCH (17:25)
[2022-03-20] MEDS: Mirabegron [Myrbetriq] PEG/G-TUBE SCH (21:24)
[2022-03-20] MEDS: MIRTAZAPINE 15 MG TAB PEG/G-TUBE SCH (21:24)
[2022-03-21] MEDS: methylPREDNISolone SOD SUCCI 125 MG/2 ML VIAL IV SCH ×4 (00:12→18:10)
[2022-03-21] MEDS: guaiFENesin SYRUP 100MG/5ML 200 MG/10 ML CUP PO SCH ×4 (00:12→17:10)
[2022-03-21] MEDS: metroNIDAZOLE-NS PMX 500 MG in SALINE 1 100ML.BAG IVPB SCH ×3 (00:18→12:36)
[2022-03-21] MEDS: IPRATROPIUM-ALBUTEROL 3 ML NEB INHALATION SCH ×3 (08:29→16:24)
[2022-03-21] MEDS: BUDESONIDE 0.5 MG/2 ML NEBU INHALATION SCH (08:29)
[2022-03-21] MEDS: ERTAPENEM 1 GM in SODIUM CHLORIDE 0.9% 50 ML IVPB SCH (08:49)
[2022-03-21] MEDS: FLUCONAZOLE IN NACL,ISO-OSM 200 MG in SALINE 1 100ML.BAG IVPB SCH (08:50)
[2022-03-21] MEDS: CALCIUM CARBONATE 500 MG CHEWABLE PO SCH (08:57)
[2022-03-21] MEDS: FERROUS SULFATE 325 MG TAB PO SCH (08:57)
[2022-03-21] MEDS: SODIUM CHLORIDE TAB 1 GM TAB PEG/G-TUBE SCH (08:57)
[2022-03-21] MEDS: MULTIVITAMINS, THERA 1 EACH TAB PEG/G-TUBE SCH (08:57)
[2022-03-21] MEDS: LORATADINE 10 MG TAB PEG/G-TUBE SCH (08:57)
[2022-03-21] MEDS: polyethylene glycoL 3350 17 GM POWD.PACK PEG/G-TUBE SCH (09:22)
[2022-03-21] MEDS: FLUTICASONE 50MCG/SPRAY NASAL 16GM EA NOSTRIL SCH (09:22)
[2022-03-21] MEDS: ASPIRIN 81 MG PEG/G-TUBE SCH (09:46)
[2022-03-21] MEDS: LEVOTHYROXINE 75 MCG TAB PEG/G-TUBE SCH (09:46)
[2022-03-21] MEDS: PANTOPRAZOLE 40 MG/10 ML VIAL IVP SCH (09:48)
[2022-03-21] MEDS: SODIUM CHLORIDE 0.9% 1,000 ML IV SCH (09:49)
[2022-03-21 11:07] LABS: Basophils # (A) 0.02 X 10*3/uL (0.00-0.10); Basophils % (A) 0.1 %; Eosinophils # (A) 0 X 10*3/uL (0.04-0.35); Eosinophils % (A) 0 %; HCT 32.8 % (39.6-50.0); HGB 10.5 g/dL (13.0-17.0); Immature Grans, Automated 0.6 %; Lymphocytes # (A) 0.77 X 10*3/uL (0.90-5.00); Lymphocytes % (A) 4.2 %; MCH 28.6 pg (27.0-32.0); MCV 89.4 fL (80.0-97.0); Mean Platelet Volume 9.8 fL (9.5-12.2); Monocytes # (A) 0.21 X 10*3/uL (0.20-1.00); Monocytes % (A) 1.1 %; NRBC Per 100 WBC 0 /100 WBCS (0.0-0.0); Platelet Count 314 X 10*3/uL (140-440); RBC 3.67 X 10*6/uL (4.40-5.60); RDW 14.2 % (11.5-14.5); WBC 18.52 X 10*3/uL (4.50-10.00)
[2022-03-21 11:28] LABS: African American GFR (CKD) 67.7 (60.0-200.0); Anion Gap 12.8 mmol/L (10.00-18.00); BUN/Creat Ratio 30.25 Ratio (12.00-20.00); Blood Urea Nitrogen 36.3 mg/dL (9.0-27.0); Calcium 9.3 mg/dL (8.7-10.3); Carbon Dioxide 25.2 mmol/L (20.0-27.5); Non-African American GFR(CKD) 58.4 (60.0-200.0); Potassium 3.7 mmol/L (3.5-5.5)
--- NOTE | 2022-03-21 12:26 | P.PN ---
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 A few episodes of nausea and vomiting, and decreased oral intake. Patient has had previous episodes of aspiration pneumonia. He had a phone consultation with his doctor 2 days ago and was placed on Zofran for the nausea and vomiting however he was getting progressively worse. Chest x-ray showing a right upper lobe patchy airspace disease suspicious for pneumonia, and background COPD changes. KUB of abdomen showed nonspecific bowel gas pattern without evidence of acute process. His lab evaluation showed leukocytosis with a white blood cell count of 14.6, hemoglobin was 11.0, sodium was 1:30, potassium is 5.3, chloride is 95, BUN is 46 and creatinine is 1.56, LFTs are within normal limits, lipase was 117 within normal limits, serum protein 6 on a level was 0.41. Patient was tested negative for clue with 19 and influenza A and B. Patient had a history of p neumonia related to MRSA and ESBL Klebsiella pneumonia, and is currently on ertapenem and Flagyl for antibiotic coverage. Initially received a dose of Levaquin and Zosyn in the emergency department. ID service has been consulted. CT of the abdomen and pelvis showed no acute abdominal/pelvic process, nonobstructive left renal Pelvis, and partially visualize pulmonary micronodules nodularity with small scattered opacities and partial collapse of the left lower lobe with bronchiectasis with possible etiologies including fungal/mycobacteria infection with metastatic lymphangitic spread not excluded. Currently patient is resting comfortably in bed, he is on 4 L of oxygen pulse ox of 91% his been afebrile, breathing comfortably. He is receiving tube feedings with Jevity at 55 ML per hour. Has had no acute events overnight. On 03/21/2022 patient seen in follow-up on medical surgical floor, and 4 L of oxygen he sat 95%, he states he feels better, breathing easier, his vitals have been stable, he has been afebrile. Breathing is nonlabored, patient has been tolerating ambulation in the room, ambulating to the bathroom. No complaints of chest discomfort. Sputum culture has shown no growth, blood culture was negative. He currently remains on ertapenem, Diflucan and Flagyl. Remains on IV hydration with point and seemed at a rate of 50 ML per hour. He's had no acute events overnight, remains on IV steroids. Objective - Vital Signs Vital signs: Vital Signs Temp 97.5 F L 03/21/22 08:00 Pulse 88 03/21/22 11:47 Resp 18 03/21/22 11:47 BP 148/78 03/21/22 08:00 Pulse Ox 95 03/21/22 08:29 FiO2 Intake & Output 03/20/22 03/21/22 03/21/22 18:59 06:59 18:59 Intake Total 432 Balance 432 Weight 57 kg 57.7 kg Intake: Tube Feeding 432 Other: Voiding Method Urinal # Voids 2 # Bowel Movements 2 - Exam GENERAL EXAM: Alert, very pleasant, frail looking 75-year-old white male on 4 L of oxygen with pulse ox of 95% comfortable in no apparent distress. HEAD: Normocephalic/atraumatic. EYES: Normal reaction of pupils, equal size. Conjunctiva pink, sclera white. NOSE: Clear with pink turbinates. THROAT: No erythema or exudates. NECK: No masses, no JVD, no thyroid enlargement, no adenopathy. CHEST: No chest wall deformity. Symmetrical expansion. LUNGS: Equal air entry with no crackles, wheeze, rhonchi or dullness. CVS: Regular rate and rhythm, normal S1 and S2, no gallops, no murmurs, no rubs ABDOMEN: Soft, nontender. No hepatosplenomegaly, normal bowel sounds, no guarding or rigidity. PEG tube is in place, and patient has Jevity tube feedings infusing at a rate of 55 ML per hour EXTREMITIES: No clubbing, no edema, no cyanosis, 2+ pulses and upper and lower extremities. MUSCULOSKELETAL: Muscle strength and tone normal. SPINE: No scoliosis or deformity SKIN: No rashes CENTRAL NERVOUS SYSTEM: Alert and oriented -3. No focal deficits, tone is normal in all 4 extremities. PSYCHIATRIC: Alert and oriented -3. Appropriate affect. Intact judgment and insight. - Labs CBC & Chem 7: 07/26/22 06:41 03/21/22 06:41 Labs: Abnormal Lab Results - Last 24 Hours (Table) 03/21/22 03/21/22 Range/Units 06:41 06:41 WBC 18.52 H (4.50-10.00) X 10*3/uL RBC 3.67 L (4.40-5.60) X 10*6/uL Hgb 10.5 L (13.0-17.0) g/dL Hct 32.8 L (39.6-50.0) % Immature Gran # 0.12 H (0.00-0.04) X 10*3/uL Neutrophils # 17.40 H (1.80-7.70) X 10*3/uL Lymphocytes # 0.77 L (0.90-5.00) X 10*3/uL Eosinophils # 0 L (0.04-0.35) X 10*3/uL Sodium 133 L (135-145) mmol/L Chloride 95 L (96-109) mmol/L BUN 36.3 H (9.0-27.0) mg/dL Est GFR (CKD-EPI)NonAf 58.4 L (60.0-200.0) BUN/Creatinine Ratio 30.25 H (12.00-20.00) Ratio Glucose 134 H (70-110) mg/dL Microbiology - Last 24 Hours (Table) 03/19/22 14:39 Gram Stain - Final Sputum Sputum Culture - Final 03/19/22 11:30 Blood Culture - Preliminary Blood No Growth after 24 hours Assessment and Plan Plan: Assessment: #1. Acute recurrent aspiration related pneumonia, COVID-19 PCR and influenza A and B were negative. Initial chest x-ray showed right upper lobe patchy airspace disease #2. Nausea and vomiting. KUB of the abdomen and abdominal and pelvis CT showing no acute abdominal and pelvic process and nonobstructive left renal calculus #3. History of MRSA and ESBL Klebsiella pneumonia #4. Acute hypoxic respiratory failure related to recurrent aspiration #5. History of recurrent aspiration post-PEG tube insertion #6. History of esophageal stricture requiring esophageal dietitian #7. History of herpetic esophagitis #8. 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 Coronary artery disease post coronary artery bypass grafting #10. Bilateral carotid artery stenosis post-stenting #11. Hypothyroidism #12. Former smoker #13. GERD/reflux #14. Acute kidney injury, recovered Plan: Continue with antibiotics of ID service recommendation Blood and sputum cultures have been negative Clinical patient is improving breathing easier colitis signs have been stable Patient is ambulating about the room, He states he feels better From pulmonary perspective patient could be considered for discharge home with antibiotics of ID service recommendations Outpatient follow-up with Dr. Castaneda in 1 week I have personally seen and examined the patient, performed the documentation and the assessment and plan as written. Number of minutes spent on the visit: [15] Time with Patient: Less than 30
--- NOTE | 2022-03-21 12:53 | P.PN ---
Subjective Progress Note Date: 03/20/22 Principal diagnosis: Aspiration pneumonia Patient is a 76 year old male with a past medical history significant for COPD [facility] status post resection thank you for feeding and admission to the hospital for aspiration pneumonia presented to hospital wit h episode of vomiting and increasing shortness of breath concerning for possible aspiration pneumonia. On today's evaluation that he 03/20/2022, the patient denies having any fever or any chills, the patient is breathing comfortably on nasal cannula oxygen, the patient can have a cough during of some purulent sputum denies any abdominal pain and no further vomiting Objective - Vital Signs Vital signs: Vital Signs Temp 97.5 F L 03/20/22 14:23 Pulse 88 03/20/22 15:37 Resp 16 03/20/22 14:23 BP 93/57 03/20/22 14:23 Pulse Ox 96 03/20/22 14:23 FiO2 Intake & Output 03/19/22 03/20/22 03/20/22 18:59 06:59 18:59 Output Total 200 Balance -200 Weight 54.431 kg 57 kg 57 kg Output: Urine 200 Other: Voiding Method Urinal # Voids 1 # Bowel Movements 0 - Exam GENERAL DESCRIPTION: An elderly male lying in bed in no distress RESPIRATORY SYSTEM: Unlabored breathing , decreased breath sounds at bases HEART: S1 S2 regular rate and rhythm , ABDOMEN: Soft , no tenderness EXTREMITIES: No edema feet - Labs CBC & Chem 7: 03/21/22 06:41 03/21/22 06:41 Labs: Abnormal Lab Results - Last 24 Hours (Table) 03/19/22 03/20/22 03/20/22 Range/Units 16:48 06:25 06:25 RBC 3.61 L (4.30-5.90) m/uL Hgb 10.5 L (13.0-17.5) gm/dL Hct 33.2 L (39.0-53.0) % Lymphocytes # 0.6 L (1.0-4.8) k/uL Sodium 131 L (137-145) mmol/L Potassium 5.3 H (3.5-5.1) mmol/L Chloride 97 L (98-107) mmol/L BUN 39 H (9-20) mg/dL Glucose 139 H (74-99) mg/dL Procalcitonin 0.41 H (0.02-0.09) ng/mL Microbiology - Last 24 Hours (Table) 03/19/22 11:30 Blood Culture - Preliminary Blood No Growth after 24 hours 03/19/22 14:39 Gram Stain - Preliminary Sputum Sputum Culture - Preliminary Assessment and Plan (1) Aspiration pneumonia Current Visit: Yes Status: Acute Code(s): J69.0 - PNEUMONITIS DUE TO INHALATION OF FOOD AND VOMIT SNOMED Code(s): 574205047 Plan: 1patient presented to hospital with increasing shortness of breath cough with some purulent sputum with respiratory evidence of right-sided pneumonia high clinical suspicion for aspiration etiology with clear history of ESBL pathogen could be ESBL all other gram-negative pathogen. 2sputum culture has been obtained and those are currently pending 3patient seemed to have shown some clinical improvement and will continue with Invanz 1 g daily as the patient white count has normalized and while waiting for the culture finalized Time with Patient: Less than 30
--- NOTE | 2022-03-21 12:55 | P.PN ---
Subjective Progress Note Date: 03/21/22 Principal diagnosis: Aspiration pneumonia Patient is a 76 year old male with a past medical history significant for COPD [facility] cancer status post resection thank you for feeding and admission to the hospital for aspiration pneumonia presented to hospital wit h episode of vomiting and increasing shortness of breath concerning for possible aspiration pneumonia. On today's evaluation that he 03/21/2022, the patient remains to be afebrile, the patient is breathing comfortably on nasal cannula oxygen, the patient cough has decreased in intensity denies any chest pain no nausea no vomiting no abdominal pain or diarrhea Objective - Vital Signs Vital signs: Vital Signs Temp 97.5 F L 03/21/22 08:00 Pulse 88 03/21/22 11:47 Resp 18 03/21/22 11:47 BP 148/78 03/21/22 08:00 Pulse Ox 95 03/21/22 08:29 FiO2 Intake & Output 03/20/22 03/21/22 03/21/22 18:59 06:59 18:59 Intake Total 432 Balance 432 Weight 57 kg 57.7 kg Intake: Tube Feeding 432 Other: Voiding Method Urinal # Voids 2 # Bowel Movements 2 - Exam GENERAL DESCRIPTION: An elderly male lying in bed in no distress RESPIRATORY SYSTEM: Unlabored breathing , decreased breath sounds at bases HEART: S1 S2 regular rate and rhythm , ABDOMEN: Soft , no tenderness EXTREMITIES: No edema feet - Labs CBC & Chem 7: 03/21/22 06:41 03/21/22 06:41 Labs: Abnormal Lab Results - Last 24 Hours (Table) 03/21/22 03/21/22 Range/Units 06:41 06:41 WBC 18.52 H (4.50-10.00) X 10*3/uL RBC 3.67 L (4.40-5.60) X 10*6/uL Hgb 10.5 L (13.0-17.0) g/dL Hct 32.8 L (39.6-50.0) % Immature Gran # 0.12 H (0.00-0.04) X 10*3/uL Neutrophils # 17.40 H (1.80-7.70) X 10*3/uL Lymphocytes # 0.77 L (0.90-5.00) X 10*3/uL Eosinophils # 0 L (0.04-0.35) X 10*3/uL Sodium 133 L (135-145) mmol/L Chloride 95 L (96-109) mmol/L BUN 36.3 H (9.0-27.0) mg/dL Est GFR (CKD-EPI)NonAf 58.4 L (60.0-200.0) BUN/Creatinine Ratio 30.25 H (12.00-20.00) Ratio Glucose 134 H (70-110) mg/dL Microbiology - Last 24 Hours (Table) 03/19/22 14:39 Gram Stain - Final Sputum Sputum Culture - Final 03/19/22 11:30 Blood Culture - Preliminary Blood No Growth after 24 hours Assessment and Plan (1) Aspiration pneumonia Current Visit: Yes Status: Acute Code(s): J69.0 - PNEUMONITIS DUE TO INHALATION OF FOOD AND VOMIT SNOMED Code(s): 463105221 Plan: 1patient presented to hospital with increasing shortness of breath cough with some purulent sputum with respiratory evidence of right-sided pneumonia high cli nical suspicion for aspiration etiology with clear history of ESBL pathogen could be ESBL all other gram-negative pathogen. 2sputum culture has been negative for any resistant pathogen blood culture has been negative 3patient seemed to have shown some clinical improvement and currently on Invanz 1 g daily which can be transitioned to oral Augmentin 10 days on discharge 4leukocytosis is more likely steroid related as the patient on Solu-Medrol Time with Patient: Less than 30
[2022-03-21 14:38] VITALS: BP 160/90; PULSE 94; RESP 22; TEMP 97.6
[2022-03-21] MEDS ORDERED: Potassium Replacement Protocol 1 EACH MISC MISCELLANE PRN (15:14)
[2022-03-21] MEDS ORDERED: POTASSIUM BICARBONATE/CIT AC 20 MEQ TABLET.EFF NG-TUBE SCH (16:00)
[2022-03-21] MEDS: MAGNESIUM SULFATE-D5W PMX 1 GM in DEXTROSE/WATER 1 100ML.BAG IVPB SCH ×2 (16:57→18:06)
[2022-03-21] MEDS: MONTELUKAST 10 MG TAB PEG/G-TUBE SCH (17:10)
[2022-03-21] MEDS: ATORVASTATIN 20 MG TAB PEG/G-TUBE SCH (17:10)
--- NOTE | 2022-03-21 22:50 | P.DS ---
Providers Date of admission: 03/19/22 12:47 Attending physician: Anne Castillo Consults: 03/19/22 12:47 Consult Physician Routine Consulting Provider: Josh Mendoza Consult Reason/Comments: Aspiration pneumonia Do you want consulting provider notified?: Yes 03/19/22 13:22 Consult Physician Routine Consulting Provider: Alex Gunderson Consult Reason/Comments: pneumonia asp, howie Do you want consulting provider notified?: Yes Primary care physician: [facility] Course: Diagnosis -Acute Hypoxic respiratory distress secondary to aspiration pneumonia with sepsis -History ESBL in the sputum recently treated with IV invanz -Chronic respiratory failure maintained on 2-3L Nasal cannula home oxygen -Coronary artery disease status post CABG -Esophageal howie suspected with oral candidiasis -COPD with exacerbation -Chronic kidney disease -Hypothyroidism -History of throat cancer with radial neck dissection and radiochemotherapy -Chronic oropharyngeal dysphagia -Status post PEG tube secondary to protein calorie malnutrition on tube feedings -History of CVA GI Prophylaxis DVT Prophylaxis Full Code Discharge Disposition Patient discharged in stable condition, with overall guarded prognosis. Patient discharged home. Patient will complete antiobiotic therapy with 10 days of oral augmentin BID. Recommend to see PCP in 1-2 days outpatient. Repeat labs in 2 to 3 days. Patient has an appointment with licensed nurse practitioner on March 27. PEG tube feedings recommend to use TwoCal HN at 85ml/hr X 13 hour + 200 H2O flushes q 6hrs. Patient wound benefit from palliative care services outpatient. Plan of care was discussed with Daughter Hanh. Hospital Course Patient is a 75-year-old male with a past medical history significant for COPD, hypothyroidism, hyperlipidemia aspiration pneumonia, CAD with prior CABG, COPD for cancer in 2005, with radical neck dissection, and chemoradiation treatment, PEG tube, secondary to severe oropharyngeal dysphagia, on pleasure foods. Follows with Dr. Ruslan lemus pulmonary. Patient presents to the emergency room with complaints of increasing productive cough yellowish sputum, very mucoid. He was recently admitted to this facility in november of 2021 for aspiration pneumonia with ESBL on finalized sputum culture and was evaluated by Dr Gunderson with infectious disease and completed 10 days of IV invanz. Patient is also maintained on PEG tube feedings with alternating Jevity 1.5 /Jevity 2.0. He has been allowed pleasure feeds mostly about 1 to 2 tbsp at a time. Right upper lobe infiltrate was seen on CT scan, WBC leukocytosis 14.6, sodium low 130, potassium slightly high 5.3, creatinine of 1.56, from a prior of 1.2 urinalysis negative, cisneros virus negative PCR, influenza A and influenza B negative. Procalcitonin 0.41. Abdominal pelvis CT shows no acute process in the abdomen pelvis. There is nonobstructive left renal calculus. Redemonstration of partially visualized pulmonary micronodularity with small scattered opacities and partial collpase of the left lower lobe with bronchiectasis. Repeat chest xray shows as no acute process. Patient is admitted for aspiration pneumonia and sputum culture has been collected with is finalized as normal colt. He was evaluated by pulmonary team Dr Mendoza as well as Dr Gunderson. He was started on IV Invanz empirically, IV metronidazole as well as IV fluconazole. Patient will be discharged on 10 days o f oral augmentin. He has also been evaluated by dietary services who does recommend continuous peg tube feedings which patient prefers to use bolus feedings by gravity. PEG tube feedings as recommended by acid concentrator TwoCal HN at 85ml/hr X 13 hour + 200 H2O flushes q 6hrs. Would recommend patient to follow up with pillowcase maker outpatient and acid concentrator if possible to monitor caloric intake from PEG tube feedings. Patient would also be a good candidate to meet with palliative care services. 03/21/2022 Patient evaluated today sitting up in chair. He would like to be discharged today. He denies chest pain, denies shortness of breath. He denies nausea, vomiting, diarrhea. Reports that cough has improved with decrease in sputum production. He is weaned down to 3L nasal cannula. He was hydrated over night with normal saline and sodium has improved to 133, potassium 3.7, chloride 95, BUN 36.3, creatinine 1.2, glucose 130, calcium 9.3, magnesium 1.7. White count 18.52 which is attributed to high dose IV steroids patient received. hgb stable at 10.5. He did receive 2 grams IVPB magnesium prior to discharge as well as potassium through PEG tube. Recommend clotrimazole dillon on discharge which dissolve in the mouth for oral candidiasis as patient is recommended to maintain NPO status to avoid aspiration. Today lung sound have improved aeration, he does have some coarse scattered rhonchi, no wheezing noted. No crackles. S1 S2 auscultated. Abdomen is soft and nontender. He is alert and oriented x 2, focal neurological examination is negative. He is afebrile, heart rate 94, blood press ure 160/90, 96% oxygen saturation. Please see medication reconciliation for a list of current medication. Thank you for allowing us to participate in the care of this patient. Total time taken in discharge planning greater than 35 minutes. Patient Condition at Discharge: Fair Plan - Discharge Summary New Discharge Prescriptions: New polyethylene glycoL 3350 [Miralax] 17 gm PEG/G-TUBE DAILY packet Amoxic-Pot Clav 875-125Mg [Augmentin 875-125] 1 tab PO Q12HR 10 Days #20 tab guaiFENesin SYRUP 100MG/5ML [Robitussin] 200 mg PO Q6HR ml Continue Fluticasone Nasal Simms [Flonase Nasal Simms] 2 spr EA NOSTRIL BID Montelukast [Singulair] 10 mg PEG/G-TUBE W/SUPPER Pantoprazole [Protonix] 40 mg PEG/G-TUBE BID Atorvastatin [Lipitor] 20 mg PEG/G-TUBE W/SUPPER Jevity 2.0 Mario 1 dose PEG/G-TUBE TID@0730,1300,1630 Budesonide/Formoterol Fumarate [Symbicort 160-4.5 Mcg Inhaler] 2 puff INHALATION RT-BID Mirtazapine [Remeron] 15 mg PEG/G-TUBE HS Midodrine HCl [ProAmatine] 10 mg PEG/G-TUBE TID PRN PRN Reason: Low BP predniSONE 5 mg PEG/G-TUBE DAILY Ferrous Sulfate [Iron (65 MG Elemental)] 325 mg PEG/G-TUBE DAILY Cetirizine HCl [Zyrtec] 10 mg PEG/G-TUBE DAILY Multivitamins, Thera [Multivitamin (formulary)] 1 tab PEG/G-TUBE DAILY Ondansetron Odt [Zofran ODT] 4 mg PEG/G-TUBE Q12H PRN PRN Reason: Nausea And Vomiting Albuterol Inhaler [Ventolin Hfa Inhaler] 2 puff INHALATION RT-QID PRN PRN Reason: Shortness Of Breath Ipratropium-Albuterol Nebulize [Duoneb 0.5 mg-3 mg/3 ml Soln] 3 ml INHALATION RT-QID Jevity 1.5 Mario Liquid 1 dose PEG/G-TUBE BID@0730,1300 Aspirin 81 mg PEG/G-TUBE DAILY rOPINIRole HCL [Requip] 0.25 mg PEG/G-TUBE BID Sodium Chloride Tab 1 gm PEG/G-TUBE BID Mirabegron [Myrbetriq] 25 mg PEG/G-TUBE HS Levothyroxine Sodium [Synthroid] 150 mcg PEG/G-TUBE DAILY Discharge Medication List Fluticasone Nasal Simms [Flonase Nasal Simms] 2 spr EA NOSTRIL BID 02/12/17 [History] Albuterol Inhaler [Ventolin Hfa Inhaler] 2 puff INHALATION RT-QID PRN 04/09/21 [History] Atorvastatin [Lipitor] 20 mg PEG/G-TUBE W/SUPPER 04/09/21 [History] Ipratropium-Albuterol Nebulize [Duoneb 0.5 mg-3 mg/3 ml Soln] 3 ml INHALATION RT-QID 04/09/21 [History] Montelukast [Singulair] 10 mg PEG/G-TUBE W/SUPPER 04/09/21 [History] Pantoprazole [Protonix] 40 mg PEG/G-TUBE BID 04/09/21 [History] Aspirin 81 mg PEG/G-TUBE DAILY 09/07/21 [History] Budesonide/Formoterol Fumarate [Symbicort 160-4.5 Mcg Inhaler] 2 puff INHALATION RT-BID 09/07/21 [History] Jevity 1.5 Mario Liquid 1 dose PEG/G-TUBE BID@0730,1300 09/07/21 [History] Jevity 2.0 Mario 1 dose PEG/G-TUBE TID@0730,1300,1630 09/07/21 [History] Midodrine HCl [ProAmatine] 10 mg PEG/G-TUBE TID PRN 09/07/21 [History] Mirtazapine [Remeron] 15 mg PEG/G-TUBE HS 09/07/21 [History] Sodium Chloride Tab 1 gm PEG/G-TUBE BID 09/07/21 [History] predniSONE 5 mg PEG/G-TUBE DAILY 09/07/21 [History] rOPINIRole HCL [Requip] 0.25 mg PEG/G-TUBE BID 09/07/21 [History] Cetirizine HCl [Zyrtec] 10 mg PEG/G-TUBE DAILY 12/14/21 [History] Ferrous Sulfate [Iron (65 MG Elemental)] 325 mg PEG/G-TUBE DAILY 12/14/21 [History] Levothyroxine Sodium [Synthroid] 150 mcg PEG/G-TUBE DAILY 12/14/21 [History] Mirabegron [Myrbetriq] 25 mg PEG/G-TUBE HS 12/14/21 [History] Multivitamins, Thera [Multivitamin (formulary)] 1 tab PEG/G-TUBE DAILY 12/14/21 [History] Ondansetron Odt [Zofran ODT] 4 mg PEG/G-TUBE Q12H PRN 03/19/22 [History] Amoxic-Pot Clav 875-125Mg [Augmentin 875-125] 1 tab PO Q12HR 10 Days #20 tab 03/21/22 [Rx] guaiFENesin SYRUP 100MG/5ML [Robitussin] 200 mg PO Q6HR ml 03/21/22 [Rx] polyethylene glycoL 3350 [Miralax] 17 gm PEG/G-TUBE DAILY packet 03/21/22 [Rx] Follow up Appointment(s)/Referral(s): Kenton Brown MD [Primary Care Provider] - 1-2 days (Office Closed. Please call office to make your appointments.) Chikis Castaneda MD [STAFF PHYSICIAN] - 03/27/22 1:15 pm [facility] [REFERRING] - As Needed Ambulatory/Diagnostic Orders: Basic Metabolic Panel [LAB.AMB] Time Frame: 2 Days, Location: None Selected Complete Blood Count w/diff [LAB.AMB] Time Frame: 2 Days, Location: None Selected Magnesium [LAB.AMB] Time Frame: 2 Days, Location: None Selected Patient Instructions/Handouts: Aspiration Pneumonia (DC) Activity/Diet/Wound Care/Special Instructions: Continue to maintain NPO status with no food or drink by mouth related to significant risk for aspiration Recommend to sit up for at least 1 hour after PEG tube feeds if doing bolus feedings Otherwise maintain aspiration precautions which include keep head of bed up/sitting up 30 degrees if doing continuous peg tube feedings Continue with PEG tube feedings as recommended by acid concentrator TwoCal HN at 85ml/hr X 13 hour + 200 H2O flushes q 6hrs Complete 10 days of oral augmentin antibiotic therapy twice a day Repeat labs in 2 to 3 days outpatient Follow up with primary care Follow up with pulmonary services as scheduled Discharge Disposition: HOME WITH HOME HEALTH SERVICES
== END 2022-03-21 19:37 | disposition home health service (06) | DRG 871 ==
LOC: EC 08:34 → 4SSUR 12:47
PROVIDERS: ADMIT Family Medicine; ATTEND Family Medicine
PROC: 3E0G76Z Introduction of Nutritional Substance into Upper GI, Via Natural or Artificial Opening (ICD-10-PCS; principal; 2022-03-21)
DX: A41.9 Sepsis, unspecified organism (principal); J69.0 Pneumonitis due to inhalation of food and vomit; J96.21 Acute and chronic respiratory failure with hypoxia; B37.0 Candidal stomatitis; N17.9 Acute kidney failure, unspecified; B37.81 Candidal esophagitis; J47.1 Bronchiectasis with (acute) exacerbation; E03.9 Hypothyroidism, unspecified; E78.5 Hyperlipidemia, unspecified; E86.0 Dehydration; H91.90 Unspecified hearing loss, unspecified ear; I25.10 Atherosclerotic heart disease of native coronary artery without angina pectoris; R13.12 Dysphagia, oropharyngeal phase; I12.9 Hypertensive chronic kidney disease with stage 1 through stage 4 chronic kidney disease, or unspecified chronic kidney disease; N18.2 Chronic kidney disease, stage 2 (mild); G47.10 Hypersomnia, unspecified; K21.9 Gastro-esophageal reflux disease without esophagitis; Z20.822 Contact with and (suspected) exposure to COVID-19; R62.7 Adult failure to thrive; K57.90 Diverticulosis of intestine, part unspecified, without perforation or abscess without bleeding; I65.23 Occlusion and stenosis of bilateral carotid arteries; N20.0 Calculus of kidney; Z99.81 Dependence on supplemental oxygen; Z85.818 Personal history of malignant neoplasm of other sites of lip, oral cavity, and pharynx; Z87.19 Personal history of other diseases of the digestive system; Z79.890 Hormone replacement therapy; Z79.899 Other long term (current) drug therapy; Z79.82 Long term (current) use of aspirin; Z79.51 Long term (current) use of inhaled steroids; Z86.19 Personal history of other infectious and parasitic diseases; Z71.3 Dietary counseling and surveillance; Z95.1 Presence of aortocoronary bypass graft; Z92.21 Personal history of antineoplastic chemotherapy; Z92.3 Personal history of irradiation; Z93.1 Gastrostomy status; Z87.01 Personal history of pneumonia (recurrent); Z87.891 Personal history of nicotine dependence; Z86.73 Personal history of transient ischemic attack (TIA), and cerebral infarction without residual deficits; Z86.14 Personal history of Methicillin resistant Staphylococcus aureus infection; Z82.49 Family history of ischemic heart disease and other diseases of the circulatory system; Z80.1 Family history of malignant neoplasm of trachea, bronchus and lung
CPT/HCPCS: 36415; 71046; 74018; 74176; 80048; 80053; 82550; 83605; 83690; 83735; 84145; 84484; 85025; 87040; 87070; 87205; 87502; 87635; 93005; 94640; 94760; 96365; 96366; 96375; 99285

== ENCOUNTER 2022-04-17 23:00 | Inpatient (IN) | payer OTHER, MEDICARE ==
[2022-04-17] MEDS ORDERED: methylPREDNISolone SOD SUCCI 125 MG/2 ML VIAL IV STA (23:12)
[2022-04-17] MEDS ORDERED: SODIUM CHLORIDE 0.9% 500 ML 500 ML IV STA (23:12)
[2022-04-17] MEDS ORDERED: ALBUTEROL NEBULIZED 2.5 MG/3 ML INHALATION STA (23:12)
[2022-04-17] MEDS ORDERED: IPRATROPIUM 0.5 MG/2.5 ML NEBU INHALATION STA (23:12)
--- NOTE | 2022-04-17 23:18 | ED ---
General Adult HPI - General Chief complaint: Shortness of Breath Stated complaint: OMAR Time Seen by Provider: 04/17/22 23:09 Source: patient, EMS, RN notes reviewed, old records reviewed Mode of arrival: EMS Limitations: physical limitation - History of Present Illness Initial comments: 76-year-old male presenting with severe respiratory distress. Patient immediately placed on BiPAP for respiratory support. History is limited. He denies a chest pain. He states symptoms have progressed over the course of today. Patient was in severe respiratory distress and hypoxic by EMS transport. History limited secondary to respiratory distress however the patient does indicate that he is a DO NOT INTUBATE DO NOT RESUSCITATE. - Related Data Home Medications Medication Instructions Recorded Confirmed Fluticasone Nasal [place] [Flonase 2 spr EA NOSTRIL BID 02/12/17 03/19/22 Nasal [place]] Albuterol Inhaler [Ventolin Hfa 2 puff INHALATION RT-QID PRN 04/09/21 03/19/22 Inhaler] Atorvastatin [Lipitor] 20 mg PEG/G-TUBE W/SUPPER 04/09/21 03/19/22 Ipratropium-Albuterol Nebulize 3 ml INHALATION RT-QID 04/09/21 03/19/22 [Duoneb 0.5 mg-3 mg/3 ml Soln] Montelukast [Singulair] 10 mg PEG/G-TUBE W/SUPPER 04/09/21 03/19/22 Pantoprazole [Protonix] 40 mg PEG/G-TUBE BID 04/09/21 03/19/22 Aspirin 81 mg PEG/G-TUBE DAILY 09/07/21 03/19/22 Budesonide/Formoterol Fumarate 2 puff INHALATION RT-BID 09/07/21 03/19/22 [Symbicort 160-4.5 Mcg Inhaler] Jevity 1.5 Mario Liquid 1 dose PEG/G-TUBE BID@0730,1300 09/07/21 03/19/22 Jevity 2.0 Mario 1 dose PEG/G-TUBE 09/07/21 03/19/22 TID@0730,1300,1630 Midodrine HCl [ProAmatine] 10 mg PEG/G-TUBE TID PRN 09/07/21 03/19/22 Mirtazapine [Remeron] 15 mg PEG/G-TUBE HS 09/07/21 03/19/22 Sodium Chloride Tab 1 gm PEG/G-TUBE BID 09/07/21 03/19/22 predniSONE 5 mg PEG/G-TUBE DAILY 09/07/21 03/19/22 rOPINIRole HCL [Requip] 0.25 mg PEG/G-TUBE BID 09/07/21 03/19/22 Cetirizine HCl [Zyrtec] 10 mg PEG/G-TUBE DAILY 12/14/21 03/19/22 Ferrous Sulfate [Iron (65 MG 325 mg PEG/G-TUBE DAILY 12/14/21 03/19/22 Elemental)] Levothyroxine Sodium [Synthroid] 150 mcg PEG/G-TUBE DAILY 12/14/21 03/19/22 Mirabegron [Myrbetriq] 25 mg PEG/G-TUBE HS 12/14/21 03/19/22 Multivitamins, Thera [Multivitamin 1 tab PEG/G-TUBE DAILY 12/14/21 03/19/22 (formulary)] Ondansetron Odt [Zofran ODT] 4 mg PEG/G-TUBE Q12H PRN 03/19/22 03/19/22 Previous Rx's Medication Instructions Recorded Amoxic-Pot Clav 875-125Mg 1 tab PO Q12HR 10 Days #20 tab 03/21/22 [Augmentin 875-125] Clotrimazole [place] [Mycelex 10 mg MUCOUS MEM QID #28 dillon 03/21/22 Dillon] Inhaler,Assist Device,Med Mask 1 device MISCELLANE DIRECTED #2 03/21/22 [Space Chamber-Medium Mask] each polyethylene glycoL 3350 [Miralax] 17 gm PEG/G-TUBE DAILY packet 03/21/22 predniSONE [predniSONE 5 MG/5 ML 0 mg PEG/G-TUBE DIRECTED #100 ml 03/21/22 Oral Soln] Allergies Allergy/AdvReac Type Severity Reaction Status Date / Time No Known Allergies Allergy Verified 03/19/22 13:08 Review of Systems ROS Statement: Those systems with pertinent positive or pertinent negative responses have been documented in the HPI. ROS Other: All systems not noted in ROS Statement are negative. 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 Current lung congestion, coughing, wheezing ongoing. History of Any Multi-Drug Resistant Organisms: MRSA Date of last positivie culture/infection: 04/09/21 MDRO Source:: Sputum Past Surgical History: Coronary Bypass/CABG, Heart Catheterization, Hernia Repair, Orthopedic Surgery Additional Past Surgical History / Comment(s): 02/2017 CABG-4 vessel, angiograms, R internal caratid stented, 2005 radical neck dissection for pharyngeal cancer, L/R inguinal hernia repair, 3 sinus surgeries with benign polypectomy, colonoscopy, bilateral rotator cuff repairs. Past Anesthesia/Blood Transfusion Reactions: No Reported Reaction, Motion Sick ness Past Psychological History: No Psychological Hx Reported Smoking Status: Former smoker Past Alcohol Use History: Rare Past Drug Use History: Marijuana - Past Family History Father Family Medical History: Cancer Additional Family Medical History / Comment(s): Father had lung cancer. He was a smoker. Mother Family Medical History: Congestive Heart Failure (CHF) Sister(s) Family Medical History: Cancer General Exam Limitations: no limitations General appearance: alert, in distress, cachectic Head exam: Present: atraumatic, normocephalic Eye exam: Present: normal appearance, PERRL Neck exam: Absent: tenderness, meningismus Respiratory exam: Present: respiratory distress, wheezes, rhonchi, accessory muscle use Cardiovascular Exam: Present: normal rhythm, tachycardia GI/Abdominal exam: Present: soft. Absent: distended, tenderness, guarding Extremities exam: Present: normal capillary refill. Absent: pedal edema, calf tenderness Neurological exam: Present: alert, oriented X3. Absent: motor sensory deficit Psychiatric exam: Present: anxious Skin exam: Present: warm, dry, intact Course Vital Signs 04/17/22 04/17/22 04/17/22 23:01 23:12 23:18 Temperature 101.5 F H Pulse Rate 138 H 131 H Respiratory 40 H Rate Blood Pressure 157/77 O2 Sat by Pulse 90 L Oximetry Fraction of 100 Inspired Oxygen (FIO2) 04/17/22 04/17/22 04/17/22 23:32 23:34 23:35 Temperature Pulse Rate 131 H Respiratory 40 H Rate Blood Pressure O2 Sat by Pulse Oximetry Fraction of 85 Inspired Oxygen (FIO2) 04/18/22 00:11 Temperature Pulse Rate 128 H Respiratory Rate Blood Pressure O2 Sat by Pulse Oximetry Fraction of Inspired Oxygen (FIO2) - Reevaluation(s) Reevaluation #1: 04/17/22 23:16 Patient states that he does not want to be intubated and is a DO NOT RESUSCITATE. EKG Findings - EKG Comments: EKG Findings:: Poor quality EKG suspect sinus tachycardia no ST segment elevation, rate of 131, TX interval 131, QRS duration 86, QTC 410 Medical Decision Making - Medical Decision Making 76 yo male presenting with severe respiratory distress. Patient is a DNR/DNI. X-ray showing concern for multifocal pneumonia. Patient is febrile, tachycardic, hypoxic requiring BiPAP support. He has a leukocytosis. He has m ild acute kidney injury. His troponin is elevated likely secondary to demand and hypoxia. This level will be trended. [facility]. Pulmonology placed on consult. Prognosis guarded - Lab Data Result diagrams: 04/17/22 23:48 04/17/22 23:48 Lab Results 04/17/22 04/17/22 04/17/22 Range/Units 23:48 23:48 23:48 WBC 14.6 H (3.8-10.6) k/uL RBC 3.97 L (4.30-5.90) m/uL Hgb 11.6 L (13.0-17.5) gm/dL Hct 36.6 L (39.0-53.0) % MCV 92.0 (80.0-100.0) fL MCH 29.3 (25.0-35.0) pg MCHC 31.8 (31.0-37.0) g/dL RDW 15.6 H (11.5-15.5) % Plt Count 420 (150-450) k/uL MPV 7.4 PT 12.1 H (9.0-12.0) sec INR 1.1 (<1.2) APTT 24.7 (22.0-30.0) sec Sodium 136 L (137-145) mmol/L Potassium 4.4 (3.5-5.1) mmol/L Chloride 94 L (98-107) mmol/L Carbon Dioxide 29 (22-30) mmol/L Anion Gap 13 mmol/L BUN 39 H (9-20) mg/dL Creatinine 1.33 H (0.66-1.25) mg/dL Est GFR (CKD-EPI)AfAm 60 (>60 ml/min/1.73 sqM) Est GFR (CKD-EPI)NonAf 52 (>60 ml/min/1.73 sqM) Glucose 83 (74-99) mg/dL Calcium 9.6 (8.4-10.2) mg/dL Total Bilirubin 0.4 (0.2-1.3) mg/dL AST 39 (17-59) U/L ALT 25 (4-49) U/L Alkaline Phosphatase 81 (38-126) U/L Troponin I (0.000-0.034) ng/mL Total Protein 7.2 (6.3-8.2) g/dL Albumin 4.3 (3.5-5.0) g/dL Coronavirus (PCR) (Not Detectd) Influenza Type A RNA (Not Detectd) Influenza Type B (PCR) (Not Detectd) 04/17/22 04/17/22 04/17/22 Range/Units 23:48 23:48 23:48 WBC (3.8-10.6) k/uL RBC (4.30-5.90) m/uL Hgb (13.0-17.5) gm/dL Hct (39.0-53.0) % MCV (80.0-100.0) fL MCH (25.0-35.0) pg MCHC (31.0-37.0) g/dL RDW (11.5-15.5) % Plt Count (150-450) k/uL MPV PT (9.0-12.0) sec INR (<1.2) APTT (22.0-30.0) sec Sodium (137-145) mmol/L Potassium (3.5-5.1) mmol/L Chloride (98-107) mmol/L Carbon Dioxide (22-30) mmol/L Anion Gap mmol/L BUN (9-20) mg/dL Creatinine (0.66-1.25) mg/dL Est GFR (CKD-EPI)AfAm (>60 ml/min/1.73 sqM) Est GFR (CKD-EPI)NonAf (>60 ml/min/1.73 sqM) Glucose (74-99) mg/dL Calcium (8.4-10.2) mg/dL Total Bilirubin (0.2-1.3) mg/dL AST (17-59) U/L ALT (4-49) U/L Alkaline Phosphatase (38-126) U/L Troponin I 0.079 H* (0.000-0.034) ng/mL Total Protein (6.3-8.2) g/dL Albumin (3.5-5.0) g/dL Coronavirus (PCR) Not Detected (Not Detectd) Influenza Type A RNA Not Detected (Not Detectd) Influenza Type B (PCR) Not Detected (Not Detectd) Critical Care Time Critical Care Time: Yes Total Critical Care Time: 35 Disposition Clinical Impression: COPD (chronic obstructive pulmonary disease), Acute respiratory failure, Aspiration pneumonia Disposition: ADMITTED IP TO THIS HOSP Condition: Serious Is patient prescribed a controlled substance at d/c from ED?: No Referrals: Kenton Brown MD [Primary Care Provider] - 1-2 days Time of Disposition: 00:45
[2022-04-17] MEDS ORDERED: AMPICILLIN-SULBACTAM 3 GM in SODIUM CHLORIDE 0.9% 100 ML IVPB STA (23:20)
[2022-04-17] MEDS ORDERED: ONDANSETRON 4 MG/2 ML VIAL IVP STA (23:55)
--- NOTE | 2022-04-18 | XR ---
EXAMINATION TYPE: XR chest 1V portable DATE OF EXAM: 04/17/2022 COMPARISON: 03/27/2022 HISTORY: Short of breath TECHNIQUE: FINDINGS: Heart is normal. There is coarse interstitial density in the lungs. There are sternal wires . There are chest leads. Costophrenic angles are clear. IMPRESSION: There is some pulmonary interstitial mild edema which appears new compared to the old exa m. There is underlying COPD. This could be atypical heart failure or acute interstitial pneumonia..
[2022-04-18] MEDS ORDERED: IPRATROPIUM-ALBUTEROL 3 ML NEB INHALATION PRN ×2 (00:07→07:13)
[2022-04-18] MEDS ORDERED: NALOXONE 0.4 MG/ML 1 ML VIAL IVP PRN (00:07)
[2022-04-18] MEDS ORDERED: HYDROmorphone 0.5 MG/0.5 ML SYRINGE IVP STA (00:13)
[2022-04-18] MEDS ORDERED: METOCLOPRAMIDE 5 MG/ML 2 ML VIAL IVP STA (00:13)
[2022-04-18 00:14] LABS: Albumin 4.3 g/dL (3.5-5.0); Calcium 9.6 mg/dL (8.4-10.2); Potassium 4.4 mmol/L (3.5-5.1); Total Bilirubin 0.4 mg/dL (0.2-1.3); Total Protein 7.2 g/dL (6.3-8.2)
[2022-04-18 00:30] LABS: HCT 36.6 % (39.0-53.0); HGB 11.6 gm/dL (13.0-17.5); INR 1.1 (<1.2); MCH 29.3 pg (25.0-35.0); MCHC 31.8 g/dL (31.0-37.0); Mean Platelet Volume 7.4; Partial Thromboplastin Time 24.7 sec (22.0-30.0); Platelet Count 420 k/uL (150-450); Prothrombin Time 12.1 sec (9.0-12.0); RBC 3.97 m/uL (4.30-5.90); RDW 15.6 % (11.5-15.5); WBC 14.6 k/uL (3.8-10.6)
[2022-04-18 01:44] LABS: Anisocytosis (M) Present; Band Neutrophils % 50 %; Eosinophils # (M) 0.15 k/uL (0-0.7); Lymphocytes # (M) 2.04 k/uL (1.0-4.8); Metamyelocytes # (M) 0.15 k/uL (0); Metamyelocytes % 1 %; Monocytes # (M) 0.58 k/uL (0-1.0); Neutrophils % (M) 31 %; Nucleated Red Blood Cells 0 /100 WBC (0-0); Total Cells Counted 200
[2022-04-18 01:45] LABS: Polychromasia Present
[2022-04-18 01:46] LABS: Poikilocytosis (M) Present
[2022-04-18] MEDS: SODIUM CHLORIDE 0.9% 1,000 ML IV SCH ×2 (02:08→08:51)
[2022-04-18] MEDS ORDERED: SODIUM CHLORIDE 0.9% 1,000 ML IV ONE ×3 (03:20→06:39)
[2022-04-18] MEDS ORDERED: IPRATROPIUM-ALBUTEROL 3 ML NEB INHALATION STA (04:49)
[2022-04-18] MEDS: methylPREDNISolone SOD SUCCI 125 MG/2 ML VIAL IV SCH ×4 (05:03→23:22)
[2022-04-18] MEDS: ACETAMINOPHEN TAB 325 MG TAB PO PRN ×2 (05:06→18:13)
--- NOTE | 2022-04-18 07:13 | P.CNPUL ---
History of Present Illness Consult date: 04/18/22 Requesting physician: Aleshia Peguero Reason for consult: dyspnea, cough, COPD, hypoxemia, pneumonia, abnormal CXR/CT Chief complaint: Respiratory failure. History of present illness: Pulmonary/critical care consult dated 04/18/2022. 76-year-old male well-known to me. He presented to the emergency room on April 17, at 11 PM, complaining of increasing shortness of breath. He was brought in by EMS. He apparently was so short of breath, he could not really give much of a history. I see him in the emergency room this morning, and trauma room 4. He is currently on BiPAP. He is on BiPAP settings of 14/5 and 60% FiO2. I confirm the fact that the patient is a DO NOT RESUSCITATE/DO NOT INTUBATE patient. He is also getting saline bolus. Saturations are 97%. He has a history of coronary disease, tonsillar/pharyngeal cancer, surgery and chemoradiation, COPD, CVA, GERD, hyperlipidemia, hypertension, ammonia, among other things. He did have a four-vessel bypass back in 2016, as well as a radical neck dissection for his [place] cancer, and 2005. He is a former smoker. White count 14.6, hemoglobin 11.6, hematocrit 36.6, and platelet count 420,000 sodium 136, potassium 4.4, chlorides 94, CO2 29, BUN 39, creatinine 1.33. Troponins are 0.079, 0.133 and 0.264. Chest x-ray shows some patchy diffuse interstitial changes, which could relate to interstitial edema or interstitial pneumonia, more right-sided than left-sided. Review of Systems REVIEW OF SYSTEMS: CONSTITUTIONAL: [Negative.] NEUROLOGIC: [ Negative.] HEENT: [ Negative.] CARDIAC: [Negative.] PULMONARY: Shortness of breath. GI: [Negative.] : [Negative.] RHEUMATOLOGIC: [ Negative.] IMMUNOLOGIC: [ Negative.] ENDOCRINE: [Negative. 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 Current lung congestion, coughing, w heezing ongoing. History of Any Multi-Drug Resistant Organisms: MRSA Date of last positivie culture/infection: 04/09/21 MDRO Source:: Sputum Past Surgical History: Coronary Bypass/CABG, Heart Catheterization, Hernia Repair, Orthopedic Surgery Additional Past Surgical History / Comment(s): 02/2017 CABG-4 vessel, angiograms, R internal caratid stented, 2005 radical neck dissection for pharyngeal cancer, L/R inguinal hernia repair, 3 sinus surgeries with benign polypectomy, c olonoscopy, bilateral rotator cuff repairs. Past Anesthesia/Blood Transfusion Reactions: No Reported Reaction, Motion Sickness Past Psychological History: No Psychological Hx Reported Smoking Status: Former smoker Past Alcohol Use History: Rare Past Drug Use History: Marijuana - Past Family History Father Family Medical History: Cancer Additional Family Medical History / Comment(s): Father had lung cancer. He was a smoker. Mother Family Medical History: Congestive Heart Failure (CHF) Sister(s) Family Medical History: Cancer Medications and Allergies Home Medications Medication Instructions Recorded Confirmed Type Fluticasone Nasal [place] [Flonase 2 spr EA NOSTRIL BID 02/12/17 03/19/22 History Nasal [place]] Albuterol Inhaler [Ventolin Hfa 2 puff INHALATION RT-QID PRN 04/09/21 03/19/22 History Inhaler] Atorvastatin [Lipitor] 20 mg PEG/G-TUBE W/SUPPER 04/09/21 03/19/22 History Ipratropium-Albuterol Nebulize 3 ml INHALATION RT-QID 04/09/21 03/19/22 History [Duoneb 0.5 mg-3 mg/3 ml Soln] Montelukast [Singulair] 10 mg PEG/G-TUBE W/SUPPER 04/09/21 03/19/22 History Pantoprazole [Protonix] 40 mg PEG/G-TUBE BID 04/09/21 03/19/22 History Aspirin 81 mg PEG/G-TUBE DAILY 09/07/21 03/19/22 History Budesonide/Formoterol Fumarate 2 puff INHALATION RT-BID 09/07/21 03/19/22 History [Symbicort 160-4.5 Mcg Inhaler] Jevity 1.5 Mario Liquid 1 dose PEG/G-TUBE BID@0730,1300 09/07/21 03/19/22 History Jevity 2.0 Mario 1 dose PEG/G-TUBE 09/07/21 03/19/22 History TID@0730,1300,1630 Midodrine HCl [ProAmatine] 10 mg PEG/G-TUBE TID PRN 09/07/21 03/19/22 History Mirtazapine [Remeron] 15 mg PEG/G-TUBE HS 09/07/21 03/19/22 History Sodium Chloride Tab 1 gm PEG/G-TUBE BID 09/07/21 03/19/22 History predniSONE 5 mg PEG/G-TUBE DAILY 09/07/21 03/19/22 History rOPINIRole HCL [Requip] 0.25 mg PEG/G-TUBE BID 09/07/21 03/19/22 History Cetirizine HCl [Zyrtec] 10 mg PEG/G-TUBE DAILY 12/14/21 03/19/22 History Ferrous Sulfate [Iron (65 MG 325 mg PEG/G-TUBE DAILY 12/14/21 03/19/22 History Elemental)] Levothyroxine Sodium [Synthroid] 150 mcg PEG/G-TUBE DAILY 12/14/21 03/19/22 History Mirabegron [Myrbetriq] 25 mg PEG/G-TUBE HS 12/14/21 03/19/22 History Multivitamins, Thera [Multivitamin 1 tab PEG/G-TUBE DAILY 12/14/21 03/19/22 His tory (formulary)] Ondansetron Odt [Zofran ODT] 4 mg PEG/G-TUBE Q12H PRN 03/19/22 03/19/22 History Amoxic-Pot Clav 875-125Mg 1 tab PO Q12HR 10 Days #20 tab 03/21/22 Rx [Augmentin 875-125] Clotrimazole [place] [Mycelex 10 mg MUCOUS MEM QID #28 dillon 03/21/22 Rx Dillon] Inhaler,Assist Device,Med Mask 1 device MISCELLANE DIRECTED #2 07/26/22 Rx [Space Chamber-Medium Mask] each polyethylene glycoL 3350 [Miralax] 17 gm PEG/G-TUBE DAILY packet 03/21/22 Rx predniSONE [predniSONE 5 MG/5 ML 0 mg PEG/G-TUBE DIRECTED #100 ml 03/21/22 Rx Oral Soln] Allergies Allergy/AdvReac Type Severity Reaction Status Date / Time No Known Allergies Allergy Verified 03/19/22 13:08 Physical Exam Osteopathic Statement: *. No significant issues noted on an osteopathic structural exam other than those noted in the History and Physical/Consult. Vitals: Vital Signs Temp Pulse Resp BP Pulse Ox FiO2 04/18/22 05:48 156 H 04/18/22 05:33 101 H 27 H 126/79 99 04/18/22 05:23 98 30 H 118/77 95 04/18/22 05:16 126 H 04/18/22 04:31 92 26 H 71/49 93 L 04/18/22 04:22 97 25 H 97/64 93 L 04/18/22 04:00 101 H 26 H 124/70 94 L 04/18/22 03:48 94 91/73 04/18/22 03:32 100 30 H 108/70 95 04/18/22 03:17 96 37 H 79/55 94 L 04/18/22 03:16 60 04/18/22 03:07 70 04/18/22 02:21 105 H 24 98/65 98 04/18/22 02:00 98.7 F 109 H 25 H 87/56 95 04/18/22 01:56 85 04/18/22 00:45 112 H 27 H 85/54 92 L 04/18/22 00:30 121 H 30 H 130/77 04/18/22 00:11 128 H 04/17/22 23:35 40 H 04/17/22 23:34 131 H 04/17/22 23:32 85 04/17/22 23:18 131 H 04/17/22 23:12 100 04/17/22 23:01 101.5 F H 138 H 40 H 157/77 90 L Intake and Output 04/17/22 04/18/22 04/18/22 22:59 06:59 14:59 Other: Weight 61.235 kg Verbal, in severe distress, currently on BiPAP, with conversational dyspnea. HEENT examination is grossly unremarkable. Neck supple. Full range of motion. No adenopathy thyromegaly or neck vein distention. Cardiovascular examination reveals regular rhythm rate. S1-S2 normal. No S3 or S4. No discernible murmur noted. Heart sounds are distant. Heart rate 125 bpm. Lungs reveal severe coarse bilateral rhonchi. His chest is very congested. No wheezes. No distinct crackles. Breath sounds equal bilaterally. Saturations 99% on BiPAP. Abdomen soft without bowel sounds. No tenderness. Extremities are intact. No cyanosis clubbing or edema. Skin is without rash or lesion. Neurologic examination is brief but nonfocal. Results - Laboratory Findings CBC and BMP: 04/17/22 23:48 04/17/22 23:48 PT/INR, D-dimer PT 12.1 sec (9.0-12.0) H 04/17/22 23:48 INR 1.1 (<1.2) 04/17/22 23:48 Abnormal lab findings: Abnormal Labs 04/17/22 04/17/22 04/17/22 23:48 23:48 23:48 WBC 14.6 H RBC 3.97 L Hgb 11.6 L Hct 36.6 L RDW 15.6 H Neutrophils # (Manual) 11.80 H Metamyelocytes # (Man) 0.15 H PT 12.1 H Sodium 136 L Chloride 94 L BUN 39 H Creatinine 1.33 H Troponin I 04/17/22 04/18/22 04/18/22 23:48 01:02 05:13 WBC RBC Hgb Hct RDW Neutrophils # (Manual) Metamyelocytes # (Man) PT Sodium Chloride BUN Creatinine Troponin I 0.079 H* 0.133 H* 0.264 H* - Diagnostic Findings Chest x-ray: image reviewed Assessment and Plan Assessment: Acute hypoxemic respiratory failure, which may relate interstitial edema and/or interstitial pneumonia. History of CAD, previous bypass grafting, 2017. Status post radical neck dissection for pharyngeal/tonsillar cancer, 2005, with subsequent chemoradiation. History of CVA. History of hypertension. History of hyperlipidemia. History of pneumonia. Hypothyroidism. Gastroesophageal reflux disease. Stage II chronic kidney disease. Multiple other medical problems and comorbidities. Plan: Plan dated 04/18/2022. The patient is seen in the emergency room, trauma room 4. The patient is evaluated and examined. Labs, x-rays, and medications are reviewed. The patient's overall prognosis is very poor. He is a DO NOT RESUSCITATE/DO NOT INTUBATE patient. I confirm that with the patient today. The patient remains on BiPAP therapy. He is getting a fluid bolus. He should be treated with breathing treatments, antibiotics, etc. We will continue to follow. Time with Patient: Greater than 30
[2022-04-18] MEDS ORDERED: DEXTROSE 50% SYRINGE 50 ML IVP PRN ×2 (07:21)
[2022-04-18] MEDS: FORMOTEROL FUMARATE 20 MCG/2 ML NEBU INHALATION SCH ×2 (07:33→19:16)
[2022-04-18] MEDS: IPRATROPIUM-ALBUTEROL 3 ML NEB INHALATION SCH ×4 (07:33→19:17)
[2022-04-18] MEDS: BUDESONIDE 1 MG/2 ML NEBU INHALATION SCH ×2 (07:34→19:16)
[2022-04-18] MEDS ORDERED: IPRATROPIUM-ALBUTEROL 3 ML NEB INHALATION SCH (08:00)
[2022-04-18] MEDS ORDERED: ALBUTEROL NEBULIZED 2.5 MG/3 ML INHALATION SCH (08:00)
[2022-04-18 08:23] LABS: Glucose,Whole Blood 102 mg/dL (70-110)
[2022-04-18] MEDS: INSULIN ASPART (NovoLOG) 100 UNIT/ML VIAL SQ SCH ×4 (08:29→20:59)
[2022-04-18] MEDS: HEPARIN SODIUM,PORCINE/PF 5,000 UNIT/0.5 ML SYRINGE SQ SCH ×2 (08:50→20:28)
[2022-04-18] MEDS: PIPERACILLIN-TAZOBACTAM 3.375 GM in SODIUM CHLORIDE 0.9% 100 ML IVPB SCH ×2 (08:50→20:29)
[2022-04-18] MEDS: FAMOTIDINE 20 MG/2 ML VIAL IV SCH (08:51)
[2022-04-18] MEDS ORDERED: FUROSEMIDE 10 MG/ML 2 ML VIAL IV ONE (09:30)
--- NOTE | 2022-04-18 10:21 | P.CRDCN ---
History of Present Illness History of present illness: This is a pleasant 76-year-old male past medical history significant for coronary artery disease status post bypass grafting with a CASTELLANOS to LAD, SVG to diagonal, SVG to OM and SVG to distal RCA in 2016 , carotid artery disease status post stenting of the right carotid artery July 2017 with evidence of significant stenosis noted in the left carotid artery on CT of the neck, COPD, pharyngeal/tonsillar cancer 2005, status post chemoradiation and radical neck dissection, hypertension, dyslipidemia and former nicotine dependence. He follows with Dr. LUIGI Avila in the office. We have been asked to see in consultation for elevated troponin. Patient presents emergency department with symptoms of fever, cough, shortness of breath, hypoxia. Patient over the past 12 days have increased shortness of breath, EMS was called and patient was brought into the emergency department. Patient requiring BiPAP in the ER. Patient seen and examined at bedside, breathing has improved, currently weaned to high flow nasal cannula. He denies any chest pain, lightheadedness, dizzines s, palpitations. DIAGNOSTICS * EKG with artifact noted, reveals sinus tachycardia, heart rate 131, n onspecific ST ST-T wave abnormalities. * Telemetry tracings indicate sinus rhythm * Chest xray course interstitial densities in the lungs bilaterally. * Laboratory reviewed, troponin 0.07, 0.13, 0.26, sodium 136, potassium 4.4, BUN 39, serum creatinine 1.3, proBNP 942, COVID-19 negative, and plan to implant to be negative, WBC 14.6, hemoglobin 11.6, platelets 420 * Echocardiogram in the office 03/2020 revealed EF of 40%, moderate concentric LVH, grade 1 diastolic dysfunction, mild to moderate aortic regurgitation, moderate mitral regurgitation, mild to moderate tricuspid regurgitation, PA pressures within normal limits, ascending aorta is enlarged * Current home medications include atorvastatin 20 mg, midodrine, prednisone, Protonix, Singulair, multivitamin, Remeron, Synthroid, aspirin 81 mg daily REVIEW OF SYSTEMS At the time of my exam: CONSTITUTIONAL: + fever Denies chills. CARDIOVASCULAR: Denies chest pain, +shortness of breath, +orthopnea,Denies palpitations. RESPIRATORY: +cough. GASTROINTESTINAL: Denies abdominal pain, diarrhea, constipation, nausea or vomiting. MUSCULOSKELETAL: Denies myalgias. NEUROLOGIC: Denies numbness, tingling, headacbe or weakness. ENDOCRINE: Denies fatigue, weight change, polydipsia or polyurina. GENITOURINARY: Denies burning, hematuria or urgency with micturation. HEMATOLOGIC: + history of anemia Denies bleeding. PHYSICAL EXAMINATION Blood pressure 111/69, heart rate 98, Temp 101.5 saturations 94% on 10 L high flow nasal cannula CONSTITUTIONAL: Short of breath HEENT: Head is normocephalic. Pupils are equal, round. Sclerae anicteric. Mucous membranes of the mouth are moist. + JVD. CHEST EXAMINATION: Lungs are crackles bilateral bases to auscultation. No chest wall tenderness is noted on palpation or with deep breathing. HEART EXAMINATION: Regular rate and rhythm. S1, S2 heard. Systolic ejection murmur at apex ABDOMEN: Soft, nontender. Positive bowel sounds. EXTREMITIES: no lower extremity edema and no calf tenderness. NEUROLOGIC EXAMINATION: Patient is awake, alert and oriented x3. Hard of hearing ASSESSMENT Acute hypoxic respiratory failure, likely secondary to congestive heart failure and/or pneumonia Elevated troponin, likely type II NC mechanism secondary to hypoxia Fever Leukocytosis Hypotension Sepsis Acute on chronic kidney disease Coronary artery disease status post bypass grafting with a CASTELLANOS to LAD, SVG to diagonal, SVG to OM and SVG to distal RCA in 2016 Carotid artery disease status post stenting of the right carotid artery July 2017 with evidence of significant stenosis noted in the left carotid artery on CT of the neck Pharyngeal/tonsillar cancer status post chemoradiation and radical neck dissection History of Hypertension Dyslipidemia Former nicotine dependence PLAN Patient given significant amount of IV fluids, appears congested on exam will give IV Lasix 20mg x 1 and monitor response Obtain 2D echocardiogram and doppler study to assess cardiac structure and function. Patient started on IV antibiotics in ER Further recommendations based on clinical course Nurse practitioner note has been reviewed by physician. Signing provider agrees with the documented findings, assessment, and plan of care. Past Medical History Past Medical History: Coronary Artery Disease (CAD), Cancer, Chest Pain / Angina, COPD, CVA/TIA, GERD/Reflux, Hearing Disorder / Deafness, Hyperlipidemia, Hypertension, Pneumonia, Renal Disease, Syncope, Thyroid Disorder, Vascular Disorder Additional Past Medical History / Comment(s): 2006 Tonsil/pharyngeal cancer w/ surgery/chemo/radiation, ongoing dysphagia, bilateral carotid artery disease w/ stent R side, CVA per MRI, CKD stage II, CAD with recent CABG w/ post op anemia requiring blood transfusion, diverticular dx, vertigo when first stands, constipation, hypothyroid, MORONGO beena aides. Current lung congestion, coughing, wheezing ongoing. History of Any Multi-Drug Resistant Organisms: MRSA Date of last positivie culture/infection: 04/09/21 MDRO Source:: Sputum Past Surgical History: Coronary Bypass/CABG, Heart Catheterization, Hernia Repair, Orthopedic Surgery Additional Past Surgical History / Comment(s): 02/2017 CABG-4 vessel, angiograms, R internal caratid stented, 2005 radical neck dissection for pharyngeal cancer, L/R inguinal hernia repair, 3 sinus surgeries with benign polypectomy, colonoscopy, bilateral rotator cuff repairs. Past Anesthesia/Blood Transfusion Reactions: No Reported Reaction, Motion Sickness Past Psychological History: No Psychological Hx Reported Smoking Status: Former smoker Past Alcohol Use History: Rare Past Drug Use History: Marijuana - Past Family History Father Family Medical History: Cancer Additional Family Medical History / Comment(s): Father had lung cancer. He was a smoker. Mother Family Medical History: Congestive Heart Failure (CHF) Sister(s) Family Medical History: Cancer Medications and Allergies Home Medications Medication Instructions Recorded Confirmed Type Fluticasone Nasal [place] [Flonase 2 spr EA NOSTRIL BID 02/12/17 04/18/22 History Nasal [place]] Albuterol Inhaler [Ventolin Hfa 2 puff INHALATION RT-QID PRN 04/09/21 04/18/22 History Inhaler] Ipratropium-Albuterol Nebulize 3 ml INHALATION RT-QID 04/09/21 04/18/22 History [Duoneb 0.5 mg-3 mg/3 ml Soln] Montelukast [Singulair] 10 mg PEG/G-TUBE W/SUPPER 04/09/21 04/18/22 History Pantoprazole [Protonix] 40 mg PEG/G-TUBE BID 04/09/21 04/18/22 History Aspirin 81 mg PEG/G-TUBE DAILY 09/07/21 04/18/22 History Budesonide/Formoterol Fumarate 2 puff INHALATION RT-BID 09/07/21 04/18/22 History [Symbicort 160-4.5 Mcg Inhaler] Jevity 2.0 Mario 2 can PEG/G-TUBE BID@0730,1600 09/07/21 04/18/22 History Midodrine HCl [ProAmatine] 10 mg PEG/G-TUBE TID@0730,1100,2100 09/07/21 04/18/22 History Mirtazapine [Remeron] 15 mg PEG/G-TUBE HS 09/07/21 04/18/22 History Sodium Chloride Tab 1 gm PEG/G-TUBE BID 09/07/21 04/18/22 History predniSONE 5 mg PEG/G-TUBE DAILY 09/07/21 04/18/22 History rOPINIRole HCL [Requip] 0.25 mg PEG/G-TUBE BID 09/07/21 04/18/22 History Cetirizine HCl [Zyrtec] 10 mg PEG/G-TUBE DAILY 12/14/21 04/18/22 History Ferrous Sulfate [Iron (65 MG 325 mg PEG/G-TUBE DAILY 12/14/21 04/18/22 History Elemental)] Levothyroxine Sodium [Synthroid] 150 mcg PEG/G-TUBE DAILY 12/14/21 04/18/22 History Mirabegron [Myrbetriq] 25 mg PEG/G-TUBE HS 12/14/21 04/18/22 History Multivitamins, Thera [Multivitamin 1 tab PEG/G-TUBE DAILY 12/14/21 04/18/22 History (formulary)] Atorvastatin [Lipitor] 20 mg PEG/G-TUBE W/SUPPER 04/18/22 04/18/22 History guaiFENesin SYRUP 100MG/5ML 200 mg PEG/G-TUBE HS 04/18/22 04/18/22 History [Robitussin] Allergies Allergy/AdvReac Type Severity Reaction Status Date / Time No Known Allergies Allergy Verified 04/18/22 08:09 Physical Exam Vitals: Vital Signs Temp Pulse Resp BP Pulse Ox FiO2 04/18/22 05:48 156 H 04/18/22 05:33 101 H 27 H 126/79 99 04/18/22 05:23 98 30 H 118/77 95 04/18/22 05:16 126 H 04/18/22 04:31 92 26 H 71/49 93 L 04/18/22 04:22 97 25 H 97/64 93 L 04/18/22 04:00 101 H 26 H 124/70 94 L 04/18/22 03:48 94 91/73 04/18/22 03:32 100 30 H 108/70 95 04/18/22 03:17 96 37 H 79/55 94 L 04/18/22 03:16 60 04/18/22 03:07 70 04/18/22 02:21 105 H 24 98/65 98 04/18/22 02:00 98.7 F 109 H 25 H 87/56 95 04/18/22 01:56 85 04/18/22 00:45 112 H 27 H 85/54 92 L 04/18/22 00:30 121 H 30 H 130/77 04/18/22 00:11 128 H 04/17/22 23:35 40 H 04/17/22 23:34 131 H 04/17/22 23:32 85 04/17/22 23:18 131 H 04/17/22 23:12 100 04/17/22 23:01 101.5 F H 138 H 40 H 157/77 90 L Intake and Output 04/17/22 04/18/22 04/18/22 22:59 06:59 14:59 Other: Weight 61.235 kg Results 04/17/22 23:48 04/17/22 23:48 Cardiac Enzymes 04/17/22 04/17/22 04/18/22 Range/Units 23:48 23:48 01:02 AST 39 (17-59) U/L Troponin I 0.079 H* 0.133 H* (0.000-0.034) ng/mL 04/18/22 Range/Units 05:13 AST (17-59) U/L Troponin I 0.264 H* (0.000-0.034) ng/mL Coagulation 04/17/22 Range/Units 23:48 PT 12.1 H (9.0-12.0) sec APTT 24.7 (22.0-30.0) sec CBC 04/17/22 Range/Units 23:48 WBC 14.6 H (3.8-10.6) k/uL RBC 3.97 L (4.30-5.90) m/uL Hgb 11.6 L (13.0-17.5) gm/dL Hct 36.6 L (39.0-53.0) % Plt Count 420 (150-450) k/uL Comprehensive Metabolic Panel 04/17/22 Range/Units 23:48 Sodium 136 L (137-145) mmol/L Potassium 4.4 (3.5-5.1) mmol/L Chloride 94 L (98-107) mmol/L Carbon Dioxide 29 (22-30) mmol/L BUN 39 H (9-20) mg/dL Creatinine 1.33 H (0.66-1.25) mg/dL Glucose 83 (74-99) mg/dL Calcium 9.6 (8.4-10.2) mg/dL AST 39 (17-59) U/L ALT 25 (4-49) U/L Alkaline Phosphatase 81 (38-126) U/L Total Protein 7.2 (6.3-8.2) g/dL Albumin 4.3 (3.5-5.0) g/dL Current Medications Generic Name Dose Route Start Last Admin Trade Name Freq PRN Reason Stop Dose Admin Acetaminophen 650 mg 04/18/22 00:07 04/18/22 05:06 Acetaminophen Tab 325 Mg Tab PO 650 mg Q4HR PRN Administration Mild Pain or Fever > 100.5 Albuterol Sulfate 5 mg 04/18/22 08:00 Albuterol Nebulized 2.5 Mg/3 Ml INHALATION RT-Q4H LEIDA Sodium Chloride 1,000 mls @ 130 mls/hr 04/17/22 23:30 04/18/22 02:08 Saline 0.9% IV 130 mls/hr .Q7H42M LEIDA Administration Sodium Chloride 1,000 mls @ 999 mls/hr 04/18/22 06:39 04/18/22 06:45 Saline 0.9% IV 04/18/22 07:39 999 mls/hr .Q1H1M ONE Administration Methylprednisolone Sodium Succinate 60 mg 04/18/22 06:00 04/18/22 05:03 Methylprednisolone Sod Succi 125 Mg/2 Ml Vial IV 60 mg Q6HR LEIDA Administration Naloxone HCl 0.2 mg 04/18/22 00:07 Naloxone 0.4 Mg/Ml 1 Ml Vial IVP Q2M PRN Opioid Reversal Intake and Output 04/17/22 04/18/22 04/18/22 22:59 06:59 14:59 Other: Weight 61.235 kg 04/17/22 23:48 04/17/22 23:48
[2022-04-18 11:31] LABS: Glucose,Whole Blood 85 mg/dL (70-110)
[2022-04-18 13:39] LABS: Calcium 8.3 mg/dL (8.4-10.2); Potassium 4.5 mmol/L (3.5-5.1)
[2022-04-18] MEDS ORDERED: ALPRAZolam 0.5 MG TAB PO PRN (15:25)
--- NOTE | 2022-04-18 16:48 | P.HPIM ---
History of Present Illness this is a pleasant 76 years old male with past medical history of hypertension, hyperlipidemia, GERD, coronary artery disease, hearing difficulty, history of tonsil/pharyngeal cancer status post surgery and chemoradiotherapy with ongoing dysphagia status post PEG tube placement, chronic kidney disease stage II, coronary artery disease status post CABG. Presents because of dyspnea. As per patient with family at bedside including state patient has history of aspiration pneumonia several times, last time was discharged on 03/21/2022. He is also complaining of from worsening productive cough, speech looks infected. at home he is 2.5-3 L/m. At baseline and is able to walk by himself. He is known to his blood pressure fluctuates. Also is known borderline blood pressure on midodrine and sodium tablets twice a day. Patient denies diarrhea. No smoking, alcohol or illicit drugs. Edwards catheter was placed in the emergency room. On admission he is tachycardic and tachypneic, heart rate was up to 156 and rhythm rate 27-30, he is on BiPAP machine. A febrile currently but he had fever of 101.5 on admission. Currently he is saturating 93% while on BiPAP, He had elevated white cell count 14.6 although he was on steroids. Hemoglobin 11.6, platelet normal. INR is unremarkable. Creatinine is slightly elevated at 1.3, with baseline 1.0-1.2 Troponin are elevated 0.07, 0.13, 0.26. ProBNP is 942. Coronavirus and influenza virus is a undetected Chest x-ray: There is some pulmonary interstitial mild edema which appears new compared to old exam. There is underlying COPD. This could be a typical heart failure or acute interstitial pneumonia EKG showing ectopic atrial tachycardia at a rate of 131 In the emergency room patient received steroids, Unasyn, ceftriaxone, bronchodilator, Dilaudid, Reglan. Review of Systems Review of systems CONSTITUTIONAL: No fever, no malaise, no fatigue. HEENT: No recent visual problems or hearing problems. Denied any sore throat. CARDIOVASCULAR: No orthopnea, PND, no palpitations, no syncope. PULMONARY: No chest wall tenderness, no hemoptysis. GASTROINTESTINAL: No diarrhea, no nausea, no vomiting, no abdominal pain. Normoa ctive bowel sounds. NEUROLOGICAL: No headaches, no weakness, no numbness. HEMATOLOGICAL: Denies any bleeding or petechiae. GENITOURINARY: Denies any burning micturition, frequency, or urgency. MUSCULOSKELETAL/RHEUMATOLOGICAL: Denies any joint pain, swelling, or any muscle pain. ENDOCRINE: Denies any polyuria or polydipsia. Past Medical History Past Medical History: Coronary Artery Disease (CAD), Cancer, Chest Pain / Angina, COPD, CVA/TIA, GERD/Reflux, Hearing Disorder / Deafness, Hyperlipidemia, Hypertension, Pneumonia, Renal Disease, Syncope, Thyroid Disorder, Vascular Disorder Additional Past Medical History / Comment(s): 2006 Tonsil/pharyngeal cancer w/ surgery/chemo/radiation, ongoing dysphagia, bilateral carotid artery disease w/ stent R side, CVA per MRI, CKD stage II, CAD with recent CABG w/ post op anemia requiring blood transfusion, diverticular dx, vertigo when first stands, constipation, hypothyroid, TEJON beena aides. Current lung congestion, coughing, wheezing ongoing. History of Any Multi-Drug Resistant Organisms: MRSA Date of last positivie culture/infection: 04/09/21 MDRO Source:: Sputum Past Surgical History: Coronary Bypass/CABG, Heart Catheterization, Hernia Repair, Orthopedic Surgery Additional Past Surgical History / Comment(s): 02/2017 CABG-4 vessel, angiograms, R internal caratid stented, 2005 radical neck dissection for pharyngeal cancer, L/R inguinal hernia repair, 3 sinus surgeries with benign polypectomy, colonoscopy, bilateral rotator cuff repairs. Past Anesthesia/Blood Transfusion Reactions: No Reported Reaction, Motion Sickness Past Psychological History: No Psychological Hx Reported Smoking Status: Former smoker Past Alcohol Use History: Rare Past Drug Use History: Marijuana - Past Family History Father Family Medical History: Cancer Additional Family Medical History / Comment(s): Father had lung cancer. He was a smoker. Mother Family Medical History: Congestive Heart Failure (CHF) Sister(s) Family Medical History: Cancer Medications and Allergies Home Medications Medication Instructions Recorded Confirmed Type Fluticasone Nasal [place] [Flonase 2 spr EA NOSTRIL BID 02/12/17 04/18/22 History Nasal [place]] Albuterol Inhaler [Ventolin Hfa 2 puff INHALATION RT-QID PRN 04/09/21 04/18/22 History Inhaler] Ipratropium-Albuterol Nebulize 3 ml INHALATION RT-QID 04/09/21 04/18/22 History [Duoneb 0.5 mg-3 mg/3 ml Soln] Montelukast [Singulair] 10 mg PEG/G-TUBE W/SUPPER 04/09/21 04/18/22 History Pantoprazole [Protonix] 40 mg PEG/G-TUBE BID 04/09/21 04/18/22 History Aspirin 81 mg PEG/G-TUBE DAILY 09/07/21 04/18/22 History Budesonide/Formoterol Fumarate 2 puff INHALATION RT-BID 09/07/21 04/18/22 History [Symbicort 160-4.5 Mcg Inhaler] Jevity 2.0 Mario 2 can PEG/G-TUBE BID@0730,1600 09/07/21 04/18/22 History Midodrine HCl [ProAmatine] 10 mg PEG/G-TUBE TID@0730,1100,2100 09/07/21 04/18/22 History Mirtazapine [Remeron] 15 mg PEG/G-TUBE HS 09/07/21 04/18/22 History Sodium Chloride Tab 1 gm PEG/G-TUBE BID 09/07/21 04/18/22 History predniSONE 5 mg PEG/G-TUBE DAILY 09/07/21 04/18/22 History rOPINIRole HCL [Requip] 0.25 mg PEG/G-TUBE BID 09/07/21 04/18/22 History Cetirizine HCl [Zyrtec] 10 mg PEG/G-TUBE DAILY 12/14/21 04/18/22 History Ferrous Sulfate [Iron (65 MG 325 mg PEG/G-TUBE DAILY 12/14/21 04/18/22 History Elemental)] Levothyroxine Sodium [Synthroid] 150 mcg PEG/G-TUBE DAILY 12/14/21 04/18/22 History Mirabegron [Myrbetriq] 25 mg PEG/G-TUBE HS 12/14/21 04/18/22 History Multivitamins, Thera [Multivitamin 1 tab PEG/G-TUBE DAILY 12/14/21 04/18/22 His tory (formulary)] Atorvastatin [Lipitor] 20 mg PEG/G-TUBE W/SUPPER 04/18/22 04/18/22 History guaiFENesin SYRUP 100MG/5ML 200 mg PEG/G-TUBE HS 04/18/22 04/18/22 History [Robitussin] Allergies Allergy/AdvReac Type Severity Reaction Status Date / Time No Known Allergies Allergy Verified 04/18/22 08:09 Physical Exam Vitals: Vital Signs Temp Pulse Resp BP Pulse Ox FiO2 04/18/22 05:48 156 H 04/18/22 05:33 101 H 27 H 126/79 99 04/18/22 05:23 98 30 H 118/77 95 04/18/22 05:16 126 H 04/18/22 04:31 92 26 H 71/49 93 L 04/18/22 04:22 97 25 H 97/64 93 L 04/18/22 04:00 101 H 26 H 124/70 94 L 04/18/22 03:48 94 91/73 04/18/22 03:32 100 30 H 108/70 95 04/18/22 03:17 96 37 H 79/55 94 L 04/18/22 03:16 60 04/18/22 03:07 70 04/18/22 02:21 105 H 24 98/65 98 04/18/22 02:00 98.7 F 109 H 25 H 87/56 95 04/18/22 01:56 85 04/18/22 00:45 112 H 27 H 85/54 92 L 04/18/22 00:30 121 H 30 H 130/77 04/18/22 00:11 128 H 04/17/22 23:35 40 H 04/17/22 23:34 131 H 04/17/22 23:32 85 04/17/22 23:18 131 H 04/17/22 23:12 100 04/17/22 23:01 101.5 F H 138 H 40 H 157/77 90 L Intake and Output 04/17/22 04/18/22 04/18/22 22:59 06:59 14:59 Other: Weight 61.235 kg GENERAL: The patient is alert and oriented x3, not in any acute distress. Well developed, well nourished. HEENT: Pupils are round and equally reacting to light. EOMI. No scleral icterus. No conjunctival pallor. Normocephalic, atraumatic. No pharyngeal erythema. No thyromegaly. CARDIOVASCULAR: S1 and S2 present. No murmurs, rubs, or gallops. PULMONARY: Chest is clear to auscultation, no wheezing or crackles. ABDOMEN: Soft, nontender, nondistended, normoactive bowel sounds. No palpable o rganomegaly. MUSCULOSKELETAL: No joint swelling or deformity. EXTREMITIES: No cyanosis, clubbing, or pedal edema. NEUROLOGICAL: Gross neurological examination did not reveal any focal deficits. SKIN: No rashes. no petechiae. Results CBC & Chem 7: 04/17/22 23:48 04/18/22 12:46 Labs: Abnormal Lab Results - Last 24 Hours (Table) 04/17/22 04/17/22 04/17/22 Range/Units 23:48 23:48 23:48 WBC 14.6 H (3.8-10.6) k/uL RBC 3.97 L (4.30-5.90) m/uL Hgb 11.6 L (13.0-17.5) gm/dL Hct 36.6 L (39.0-53.0) % RDW 15.6 H (11.5-15.5) % Neutrophils # (Manual) 11.80 H (1.3-7.7) k/uL Metamyelocytes # (Man) 0.15 H (0) k/uL PT 12.1 H (9.0-12.0) sec Sodium 136 L (137-145) mmol/L Chloride 94 L (98-107) mmol/L BUN 39 H (9-20) mg/dL Creatinine 1.33 H (0.66-1.25) mg/dL Troponin I (0.000-0.034) ng/mL 04/17/22 04/18/22 04/18/22 Range/Units 23:48 01:02 05:13 WBC (3.8-10.6) k/uL RBC (4.30-5.90) m/uL Hgb (13.0-17.5) gm/dL Hct (39.0-53.0) % RDW (11.5-15.5) % Neutrophils # (Manual) (1.3-7.7) k/uL Metamyelocytes # (Man) (0) k/uL PT (9.0-12.0) sec Sodium (137-145) mmol/L Chloride (98-107) mmol/L BUN (9-20) mg/dL Creatinine (0.66-1.25) mg/dL Troponin I 0.079 H* 0.133 H* 0.264 H* (0.000-0.034) ng/mL Assessment and Plan Assessment: Possible healthcare associated pneumonia Acute COPD exacerbation Acute on chronic hypoxic respiratory failure sepsis with tachypnea, tachycardia and fever with leukocytosis Elevated troponin Hypertension Hyperlipidemia History of GERD History of coronary artery disease status post CABG History of pharyngeal cancer and dysphagia status post PEG tube placement Chronic kidney disease stage II Hearing difficulty Plan: This is a pleasant 76 years old male who presents with COPD and pneumonia Continue with Zosyn. Patient also with history of ESBL. Continue with Solu-Medrol and bronchodilator Pulmonary consult Cardiology consult Dietary consult Labs and medication were reviewed.. Continue same treatment. Continue with symptomatic treatment. Resume home medication. Monitor lytes and vitals. DVT and GI prophylaxis. Further recommendations as per clinical course of the patient DVT prophylaxis: Subcutaneous heparin GI Prophylaxis: Pepcid PT/OT: Pending Prognosis is guarded
[2022-04-18 18:07] LABS: Glucose,Whole Blood 89 mg/dL (70-110)
[2022-04-18] MEDS: ATORVASTATIN 20 MG TAB PEG/G-TUBE SCH (18:14)
[2022-04-18 20:53] LABS: Glucose,Whole Blood 117 mg/dL (70-110)
--- NOTE | 2022-04-18 22:49 | P.CONS ---
History of Present Illness - Reason for Consult Consult date: 04/18/22 Pneumonia Requesting physician: Jack E Sheet - Chief Complaint Increasing shortness of breath and cough x few days - History of Present Illness Patient is a 76-year-old male with a past medical history significant for tonsillopharyngeal cancer status post chemoradiation patient did have PEG tube for feeding he also history of COPD CVA hypertension hyperlipidemia history of recurrent aspiration pneumonia patient presented to hospital last night for evaluation of increasing shortness of breath patient symptom has been going on for a day or 2 before presentation to the hospital patient denies having any chest pain at the patient did have a cough which has been moderate intensity and has been variable in up some purulent sputum patient denies having any h emoptysis patient denies having any nausea no vomiting no abdominal pain or any diarrhea patient on presentation to the hospital did have a fever of 101. degrees Fahrenheit patient was hypoxic with O2 sats of 85% on room air currently on a nasal cannula oxygen, patient did have a count of 14.6 with a left shift COVID testing was negative influenza PCR was negative patient did have a chest x-ray pulmonary interstitial edema underlying COPD patient was started on Zosyn infectious disease was consulted for further management of antibiotic therapy sputum cultures obtained which are currently pending blood cultures are pending Review of Systems Positive point has been mentioned in the HPI rest of the systems are negative Past Medical History Past Medical History: Coronary Artery Disease (CAD), Cancer, Chest Pain / Angina, COPD, CVA/TIA, GERD/Reflux, Hearing Disorder / Deafness, Hyperlipidemia, Hypertension, Pneumonia, Renal Disease, Syncope, Thyroid Disorder, Vascular Disorder Additional Past Medical History / Comment(s): 2006 Tonsil/pharyngeal cancer w/ surgery/chemo/radiation, ongoing dysphagia, bilateral carotid artery disease w/ stent R side, CVA per MRI, CKD stage II, CAD with recent CABG w/ post op anemia requiring blood transfusion, diverticular dx, vertigo when first stands, consti pation, hypothyroid, [place] ebena aides. Current lung congestion, coughing, wheezing ongoing. History of Any Multi-Drug Resistant Organisms: MRSA Year Discovered:: 04/09/21 MDRO Source:: Sputum Past Surgical History: Coronary Bypass/CABG, Heart Catheterization, Hernia Repair, Orthopedic Surgery Additional Past Surgical History / Comment(s): 02/2017 CABG-4 vessel, angiograms, R internal caratid stented, 2006 radical neck dissection for pharyngeal cancer, L/R inguinal hernia repair, 3 sinus surgeries with benign polypectomy, colonoscopy, bilateral rotator cuff repairs. Past Anesthesia/Blood Transfusion Reactions: No Reported Reaction, Motion Sickness Past Psychological History: No Psychological Hx Reported Smoking Status: Former smoker Past Alcohol Use History: Rare Past Drug Use History: Marijuana - Past Family History Father Family Medical History: Cancer Additional Family Medical History / Comment(s): Father had lung cancer. He was a smoker. Mother Family Medical History: Congestive Heart Failure (CHF) Sister(s) Family Medical History: Cancer Medications and Allergies Home Medications Medication Instructions Recorded Confirmed Type Fluticasone Nasal [place] [Flonase 2 spr EA NOSTRIL BID 02/12/17 04/18/22 History Nasal [place]] Albuterol Inhaler [Ventolin Hfa 2 puff INHALATION RT-QID PRN 04/09/21 04/18/22 History Inhaler] Ipratropium-Albuterol Nebulize 3 ml INHALATION RT-QID 04/09/21 04/18/22 History [Duoneb 0.5 mg-3 mg/3 ml Soln] Montelukast [Singulair] 10 mg PEG/G-TUBE W/SUPPER 04/09/21 04/18/22 History Pantoprazole [Protonix] 40 mg PEG/G-TUBE BID 04/09/21 04/18/22 History Aspirin 81 mg PEG/G-TUBE DAILY 09/07/21 04/18/22 History Budesonide/Formoterol Fumarate 2 puff INHALATION RT-BID 09/07/21 04/18/22 Histor y [Symbicort 160-4.5 Mcg Inhaler] Jevity 2.0 Mario 2 can PEG/G-TUBE BID@0730,1600 09/07/21 04/18/22 History Mirtazapine [Remeron] 15 mg PEG/G-TUBE HS 09/07/21 04/18/22 History predniSONE 5 mg PEG/G-TUBE DAILY 09/07/21 04/18/22 History rOPINIRole HCL [Requip] 0.25 mg PEG/G-TUBE BID 09/07/21 04/18/22 History Cetirizine HCl [Zyrtec] 10 mg PEG/G-TUBE DAILY 12/14/21 04/18/22 History Ferrous Sulfate [Iron (65 MG 325 mg PEG/G-TUBE DAILY 12/14/21 04/18/22 History Elemental)] Levothyroxine Sodium [Synthroid] 150 mcg PEG/G-TUBE DAILY 12/14/21 04/18/22 History Mirabegron [Myrbetriq] 25 mg PEG/G-TUBE HS 12/14/21 04/18/22 History Multivitamins, Thera [Multivitamin 1 tab PEG/G-TUBE DAILY 12/14/21 04/18/22 History (formulary)] Atorvastatin [Lipitor] 20 mg PEG/G-TUBE W/SUPPER 04/18/22 04/18/22 History guaiFENesin SYRUP 100MG/5ML 200 mg PEG/G-TUBE HS 04/18/22 04/18/22 History [Robitussin] Ertapenem [INVanz] 1 gm IVPB DAILY 14 Days #14 each 04/25/22 Rx Midodrine [ProAmatine] 5 mg PEG/G-TUBE 0730,1100,2100 #90 04/25/22 Rx tablet Allergies Allergy/AdvReac Type Severity Reaction Status Date / Time No Known Allergies Allergy Verified 04/18/22 08:09 Physical Exam Vitals: Vital Signs Temp Pulse Pulse Resp BP BP Pulse Ox 04/18/22 14:53 99 22 04/18/22 14:43 95 22 04/18/22 12:00 97.9 F 100 26 H 130/83 96 04/18/22 10:37 97 28 H 04/18/22 10:28 99 22 04/18/22 09:10 98 18 111/69 94 L 04/18/22 08:40 98 30 H 94/61 95 04/18/22 08:20 97 24 92/66 95 04/18/22 08:00 97.9 F 99 101 H 26 H 96/60 121/77 94 L 04/18/22 07:59 95 33 H 04/18/22 07:50 97 24 96/64 97 04/18/22 07:49 97 32 H 04/18/22 07:48 97 33 H 04/18/22 07:34 95 32 H 04/18/22 07:30 95 04/18/22 05:48 156 H 04/18/22 05:33 101 H 27 H 126/79 99 04/18/22 05:23 98 30 H 118/77 95 04/18/22 05:16 126 H 04/18/22 04:31 92 26 H 71/49 93 L 04/18/22 04:22 97 25 H 97/64 93 L 04/18/22 04:00 101 H 26 H 124/70 94 L 04/18/22 03:48 94 91/73 04/18/22 03:32 100 30 H 108/70 95 04/18/22 03:17 96 37 H 79/55 94 L 04/18/22 03:16 04/18/22 03:07 04/18/22 02:21 105 H 24 98/65 98 04/18/22 02:00 98.7 F 109 H 25 H 87/56 95 04/18/22 01:56 04/18/22 00:45 112 H 27 H 85/54 92 L 04/18/22 00:30 121 H 30 H 130/77 04/18/22 00:11 128 H 04/17/22 23:35 40 H 04/17/22 23:34 131 H 04/17/22 23:32 04/17/22 23:18 131 H 04/17/22 23:12 04/17/22 23:01 101.5 F H 138 H 40 H 157/77 90 L FiO2 04/18/22 14:53 04/18/22 14:43 60 04/18/22 12:00 04/18/22 10:37 04/18/22 10:28 04/18/22 09:10 04/18/22 08:40 04/18/22 08:20 04/18/22 08:00 04/18/22 07:59 04/18/22 07:50 04/18/22 07:49 04/18/22 07:48 04/18/22 07:34 04/18/22 07:30 60 04/18/22 05:48 04/18/22 05:33 04/18/22 05:23 04/18/22 05:16 04/18/22 04:31 04/18/22 04:22 04/18/22 04:00 04/18/22 03:48 04/18/22 03:32 04/18/22 03:17 04/18/22 03:16 60 04/18/22 03:07 70 04/18/22 02:21 04/18/22 02:00 04/18/22 01:56 85 04/18/22 00:45 04/18/22 00:30 04/18/22 00:11 04/17/22 23:35 04/17/22 23:34 04/17/22 23:32 85 04/17/22 23:18 04/17/22 23:12 100 04/17/22 23:01 Intake and Output 04/18/22 04/18/22 04/18/22 06:59 14:59 22:59 Intake Total 110 Output Total 775 Balance -665 Intake: IV 10 .9 10 mL 10 Intake, IV Titration 100 Amount Piperacillin-Tazobactam 3 100 .375 gm In Sodium Chloride 0.9% 100 ml @ 25 mls/hr IVPB Q12HR [facility] Rx #:[id number] Output: Urine 775 Other: Voiding Method Indwelling Catheter Weight 61.235 kg 61.235 kg GENERAL DESCRIPTION: [place] male lying in bed, no distress. No tachypnea or accessory muscle of respiration use. HEENT: Shows Pallor , no scleral icterus. Oral mucous membrane is dry. No pharyngeal erythema or thrush NECK: Trachea central, no thyromegaly. LUNGS: Unlabored breathing. Coarse breath sounds bilaterally HEART: S1, S2, regular rate and rhythm. No loud murmur ABDOMEN: Soft, no tenderness , guarding or rigidity, no organomegaly EXTREMITIES: No edema of feet. SKIN: No rash, no masses palpable. NEUROLOGICAL: The patient is awake, alert, oriented x3, mood and affect normal. Results CBC & Chem 7: 04/22/22 09:05 04/28/22 06:02 Labs: Abnormal Lab Results - Last 24 Hours (Table) 04/17/22 04/17/22 04/17/22 Range/Units 23:48 23:48 23:48 WBC 14.6 H (3.8-10.6) k/uL RBC 3.97 L (4.30-5.90) m/uL Hgb 11.6 L (13.0-17.5) gm/dL Hct 36.6 L (39.0-53.0) % RDW 15.6 H (11.5-15.5) % Neutrophils # (Manual) 11.80 H (1.3-7.7) k/uL Metamyelocytes # (Man) 0.15 H (0) k/uL PT 12.1 H (9.0-12.0) sec Sodium 136 L (137-145) mmol/L Chloride 94 L (98-107) mmol/L Carbon Dioxide (22-30) mmol/L BUN 39 H (9-20) mg/dL Creatinine 1.33 H (0.66-1.25) mg/dL Calcium (8.4-10.2) mg/dL Troponin I (0.000-0.034) ng/mL 04/17/22 04/18/22 04/18/22 Range/Units 23:48 01:02 05:13 WBC (3.8-10.6) k/uL RBC (4.30-5.90) m/uL Hgb (13.0-17.5) gm/dL Hct (39.0-53.0) % RDW (11.5-15.5) % Neutrophils # (Manual) (1.3-7.7) k/uL Metamyelocytes # (Man) (0) k/uL PT (9.0-12.0) sec Sodium (137-145) mmol/L Chloride (98-107) mmol/L Carbon Dioxide (22-30) mmol/L BUN (9-20) mg/dL Creatinine (0.66-1.25) mg/dL Calcium (8.4-10.2) mg/dL Troponin I 0.079 H* 0.133 H* 0.264 H* (0.000-0.034) ng/mL 04/18/22 Range/Units 12:46 WBC (3.8-10.6) k/uL RBC (4.30-5.90) m/uL Hgb (13.0-17.5) gm/dL Hct (39.0-53.0) % RDW (11.5-15.5) % Neutrophils # (Manual) (1.3-7.7) k/uL Metamyelocytes # (Man) (0) k/uL PT (9.0-12.0) sec Sodium (137-145) mmol/L Chloride (98-107) mmol/L Carbon Dioxide 18 L (22-30) mmol/L BUN 38 H (9-20) mg/dL Creatinine 1.38 H (0.66-1.25) mg/dL Calcium 8.3 L (8.4-10.2) mg/dL Troponin I (0.000-0.034) ng/mL Microbiology - Last 24 Hours (Table) 04/18/22 00:18 Sputum Culture - Preliminary Sputum Assessment and Plan (1) Bilateral pneumonia Current Visit: No Status: Acute Code(s): J18.9 - PNEUMONIA, UNSPECIFIED ORGANISM SNOMED Code(s): 025474564 Plan: 1patient presented to hospital with sepsis and respiratory have fever elevated white count hypoxemia predominantly respiratory symptoms concerning likely for pneumonia questionable aspiration etiology. 2blood and sputum culture has been obtained and those will be followed. 3patient to continue with the Zosyn 3.375 g. Every 8 hour while waiting for the culture to finalize We will follow on clinical condition and cultures to further adjust medication if needed Thank you for this consultation will follow this patient along with you Time with Patient: Greater than 30
[2022-04-19] MEDS: methylPREDNISolone SOD SUCCI 125 MG/2 ML VIAL IV SCH ×3 (05:08→17:25)
[2022-04-19 06:06] LABS: Glucose,Whole Blood 129 mg/dL (70-110)
[2022-04-19] MEDS: INSULIN ASPART (NovoLOG) 100 UNIT/ML VIAL SQ SCH ×4 (06:10→21:13)
--- NOTE | 2022-04-19 07:19 | CA ---
Transthoracic Echo Report Name: Tenzin Burgos Age: 76 Gender: M : 1945 Exam Date: 04/18/2022 13:01 Exam Location: [facility] Ht (in): 73 Wt (lb): 135 Ordering Physician: Geeta Chong Attending/Referring Phys: Environmental Adviser Janet Bhardwaj RDCS Procedure CPT: Indications: shortness of breath, elevated troponin Cardiac Hx: Technical Quality: Good Contrast 1: Total Dose (mL): Contrast 2: Total Dose (mL): MEASUREMENTS (Male / Female) Normal Values 2D ECHO LV Diastolic Diameter PLAX 4.6 cm 4.2 - 5.9 / 3.9 - 5.3 cm LV Systolic Diameter PLAX 2.9 cm IVS Diastolic Thickness 1.2 cm 0.6 - 1.0 / 0.6 - 0.9 cm LVPW Diastolic Thickness 1.2 cm 0.6 - 1.0 / 0.6 - 0.9 cm LV Relative Wall Thickness 0.5 RV Internal Dim ED PLAX 3.4 cm LA Systolic Diameter LX 3.4 cm 3.0 - 4.0 / 2.7 - 3.8 cm LA Volume 37.2 cm??? 18 - 58 / 22 - 52 cm??? M-MODE Aortic Root Diameter MM 4.0 cm MV E Point Septal Separation 0.5 cm AV Cusp Separation MM 2.1 cm DOPPLER AV Peak Velocity 124.7 cm/s AV Peak Gradient 6.2 mmHg AI Peak Velocity 327.3 cm/s AI Peak Gradient 42.9 mmHg AI Pressure Half Time 397.9 ms MV Area PHT 6.0 cm??? Mitral E Point Velocity 73.9 cm/s Mitral A Point Velocity 54.0 cm/s Mitral E to A Ratio 1.4 MV Deceleration Time 126.6 ms MV E' Velocity 11.0 cm/s Mitral E to MV E' Ratio 6.7 TR Peak Velocity 249.2 cm/s TR Peak Gradient 24.8 mmHg Right Ventricular Systolic Press 29.6 mmHg FINDINGS Left Ventricle Left ventricular ejection fraction is estimated at 55-60 %. Left ventricular cavity size normal.mild concentric left ventricular hypertrophy. Left ventricular cavity size normal. Right Ventricle Mild right ventricular dilatation. Right ventricular systolic pressure within normal limits. Right Atrium Normal right atrial size. Left Atrium Normal left atrial size. No evidence for an atrial septal defect. Mitral Valve Mitral valve thickened. Mild mitral regurgitation. Aortic Valve Trileaflet aortic valve. No aortic valve stenosis .mild aortic regurgitation. Tricuspid Valve Mild tricuspid regurgitation.structurally normal tricuspid valve. Pulmonic Valve Trace pulmonic regurgitation. Pericardium Normal pericardium. No pericardial effusion. Aorta Moderate aortic dilatation at the level of the sinuses of valsalva 40 mm CONCLUSIONS 1. Normal size and systolic function . Mild mitral, aortic and tricuspid regurgitation 3. Mildly dilated ascending aorta Previewed by: Dr. Tolu Travis MD (Electronically Signed) Final Date: 19 April 2022 07:18
[2022-04-19] MEDS: BUDESONIDE 1 MG/2 ML NEBU INHALATION SCH ×2 (07:21→19:40)
[2022-04-19] MEDS: FORMOTEROL FUMARATE 20 MCG/2 ML NEBU INHALATION SCH ×2 (07:21→19:39)
[2022-04-19] MEDS: IPRATROPIUM-ALBUTEROL 3 ML NEB INHALATION SCH ×4 (07:22→19:40)
[2022-04-19 10:06] LABS: Calcium 8.6 mg/dL (8.4-10.2); Potassium 4.5 mmol/L (3.5-5.1)
[2022-04-19] MEDS: HEPARIN SODIUM,PORCINE/PF 5,000 UNIT/0.5 ML SYRINGE SQ SCH ×2 (10:08→21:16)
[2022-04-19] MEDS: PIPERACILLIN-TAZOBACTAM 3.375 GM in SODIUM CHLORIDE 0.9% 100 ML IVPB SCH ×2 (10:08→21:16)
[2022-04-19] MEDS: FAMOTIDINE 20 MG/2 ML VIAL IV SCH (10:08)
[2022-04-19] MEDS: ASPIRIN 81 MG PEG/G-TUBE SCH (10:09)
[2022-04-19 10:55] VITALS: BMI 17.6
--- NOTE | 2022-04-19 11:35 | P.PN ---
Subjective Progress Note Date: 04/19/22 Principal diagnosis: Dyspnea, cough, hypoxemia 76-year-old male well-known to me. He presented to the emergency room on April 17, at 11 PM, complaining of increasing shortness of breath. He was brought in by EMS. He apparently was so short of breath, he could not really give much of a history. I see him in the emergency room this morning, and trauma room 4. He is currently on BiPAP. He is on BiPAP settings of 14/5 and 60% FiO2. I confirm the fact that the patient is a DO NOT RESUSCITATE/DO NOT INTUBATE patient. He is also getting saline bolus. Saturations are 97%. He has a history of coronary disease, tonsillar/pharyngeal cancer, surgery and chemoradiation, COPD, CVA, GERD, hyperlipidemia, hypertension, ammonia, among other things. He did have a four-vessel bypass back in 2016, as well as a radical neck dissection for his energy [place] cancer, and 2006. He is a former smoker. White count 14.6, hemoglobin 11.6, hematocrit 36.6, and platelet count 420,000 sodium 136, potassium 4.4, chlorides 94, CO2 29, BUN 39, creatinine 1.33. Troponins are 0.079, 0.133 and 0.264. Chest x-ray shows some patchy diffuse interstitial changes, which could relate to interstitial edema or interstitial pneumonia, more right-sided than left-sided. On 04/19/2022 patient seen in follow-up on selective care unit. Patient looks better today, breathing easier, lung sounds reveal some mild scattered wheezes, currently patient is on 10 L of oxygen satting 94%, afebrile, blood pressure is been stable. Patient remains nothing by mouth, he is awaiting a registered dietitian evaluation to restart his tube feedings per the PEG tube. Patient continues on nebulized bronchodilators, IV steroids and Zosyn for antibiotic coverage. His blood and sputum cultures have been sent, sputum culture is pending, preliminary Gram stain showing rare PMNs, rare epithelial cells, many gram-positive cocci and many gram-negative bacilli. Blood cultures are negative. Denies any hemoptysis, he is bringing up some green colored phlegm. But overall feels improved. Objective - Vital Signs Vital signs: Vital Signs Temp 97.8 F 08/24/22 08:59 Pulse 104 H 04/19/22 11:17 Resp 20 04/19/22 08:59 BP 156/86 04/19/22 08:59 Pulse Ox 94 L 04/19/22 08:59 FiO2 60 04/18/22 14:43 Intake & Output 04/18/22 04/19/22 04/19/22 18:59 06:59 18:59 Intake Total 110 Output Total 1125 200 Balance -1015 -200 Weight 61.235 kg 60.5 kg 60.5 kg Intake: IV 10 .9 10 mL 10 Intake, IV Titration 100 Amount Piperacillin-Tazobactam 3 100 .375 gm In Sodium Chloride 0.9% 100 ml @ 25 mls/hr IVPB Q12HR [facility] Rx #:[id number] Output: Urine 1125 200 Other: Voiding Method Indwelling Catheter Indwelling Catheter - Exam GENERAL EXAM: Alert, very pleasant, 76-year-old white male, resting in bed, on 10 L per high flow nasal cannula satting 94%, comfortable in no apparent distress. HEAD: Normocephalic/atraumatic. EYES: Normal reaction of pupils, equal size. Conjunctiva pink, sclera white. NOSE: Clear with pink turbinates. THROAT: No erythema or exudates. NECK: No masses, no JVD, no thyroid enlargement, no adenopathy. Patient has postsurgical changes of radical neck dissection CHEST: No chest wall deformity. Symmetrical expansion. LUNGS: Equal air entry with mild scattered wheezes CVS: Regular rate and rhythm, normal S1 and S2, no gallops, no murmurs, no rubs ABDOMEN: Soft, nontender. No hepatosplenomegaly, normal bowel sounds, no guarding or rigidity. PEG tube is in place, no tube feedings infusing EXTREMITIES: No clubbing, no edema, no cyanosis, 2+ pulses and upper and lower extremities. MUSCULOSKELETAL: Muscle strength and tone normal. SPINE: No scoliosis or deformity SKIN: No rashes CENTRAL NERVOUS SYSTEM: Alert and oriented -3. No focal deficits, tone is normal in all 4 extremities. PSYCHIATRIC: Alert and oriented -3. Appropriate affect. Intact judgment and insight. - Labs CBC & Chem 7: 04/17/22 23:48 04/19/22 09:07 Labs: Abnormal Lab Results - Last 24 Hours (Table) 04/18/22 04/18/22 04/19/22 Range/Units 12:46 20:50 06:04 Carbon Dioxide 18 L (22-30) mmol/L BUN 38 H (9-20) mg/dL Creatinine 1.38 H (0.66-1.25) mg/dL Glucose (74-99) mg/dL POC Glucose (mg/dL) 117 H 129 H (70-110) mg/dL Calcium 8.3 L (8.4-10.2) mg/dL 04/19/22 Range/Units 09:07 Carbon Dioxide (22-30) mmol/L BUN 48 H (9-20) mg/dL Creatinine (0.66-1.25) mg/dL Glucose 127 H (74-99) mg/dL POC Glucose (mg/dL) (70-110) mg/dL Calcium (8.4-10.2) mg/dL Microbiology - Last 24 Hours (Table) 04/18/22 00:18 Gram Stain - Preliminary Sputum Sputum Culture - Preliminary 04/17/22 23:30 Blood Culture - Preliminary Blood No Growth after 24 hours 04/17/22 23:44 Blood Culture - Preliminary Blood No Growth after 24 hours Assessment and Plan Plan: Assessment: #1. Acute hypoxic respiratory failure related to interstitial edema/inters titial pneumonia #2. History of pharyngeal/tonsillar cancer in 2006 status post radical neck dissection with subsequent chemoradiation #3. History of CAD with previous bypass grafting in 2017 #4. History of CVA #5. Hypertension #6. Hyperlipidemia #7. Dysphagia, patient is nothing by mouth, has a PEG tube in place for nutritional support #8. History of pneumonia #9. Hypothyroidism #10. GERD/reflux #11. Stage II chronic kidney disease Plan: Continue current antibiotics Continue IV steroids and nebulized bronchodilators Dietary service to evaluate and start nutritional support per the PEG tube Continue to follow patient's clinical course Clinically patient is breathing easier Continue weaning FiO2 to keep I have personally seen and examined the patient, performed the documentation and the assessment and plan as written. Number of minutes spent on the visit: 10 min Time with Patient: Less than 30
[2022-04-19 11:44] LABS: Glucose,Whole Blood 124 mg/dL (70-110)
[2022-04-19] MEDS: ACETAMINOPHEN TAB 325 MG TAB PO PRN ×2 (13:04→21:17)
--- NOTE | 2022-04-19 14:09 | P.PN ---
Subjective This is a pleasant 76-year-old male past medical history significant for coronary artery disease status post bypass grafting with a CASTELLANOS to LAD, SVG to diagonal, SVG to OM and SVG to distal RCA in 2016 , carotid artery disease status post stenting of the right carotid artery July 2017 with evidence of significant stenosis noted in the left carotid artery on CT of the neck, COPD, pharyngeal/tonsillar cancer 2005, status post chemoradiation and radical neck dissection, hypertension, dyslipidemia and former nicotine dependence. He follows with Dr. LUIGI Avila in the office. We have been asked to see in consultation for elevated troponin. Patient presents emergency department with symptoms of fever, cough, shortness of breath, hypoxia. Patient over the past 12 days have increased shortness of breath, EMS was called and patient was brought into the emergency department. Patient requiring BiPAP in the ER. Patient seen and examined at bedside, breathing has improved, currently weaned to high flow nasal cannula. He denies any chest pain, lightheadedness, dizziness, palpitations. 04/19 Patient seen and examined at bedside, continues to be short of breath, but much improved from yesterday. Continues to have scattered wheezing. His Echo revealed EF 55-60%, no significant valvular wall motion abnormalities. His vital signs are stable. Currently afebrile. He continues to be on IV steroids, IV antibiotics and nebulizers. Blood cultures were negative. PHYSICAL EXAMINATION Vitals reviewed CONSTITUTIONAL: Short of breath HEENT: Neck supple, no JVD CHEST EXAMINATION: Lungs with bilateral wheezes to auscultation. No chest wall tenderness is noted on palpation or with deep breathing. HEART EXAMINATION: Regular rate and rhythm. S1, S2 heard. Systolic ejection murmur at apex ABDOMEN: Soft, nontender. Positive bowel sounds. EXTREMITIES: no lower extremity edema and no calf tenderness. NEUROLOGIC EXAMINATION: Patient is awake, alert and oriented x3. Hard of hearing ASSESSMENT Acute hypoxic respiratory failure, likely secondary bronchitis and pneumonia Elevated troponin, likely type II PA mechanism secondary to hypoxia Fever Leukocytosis Hypotension Sepsis Acute on chronic kidney disease Coronary artery disease status post bypass grafting with a CASTELLANOS to LAD, SVG to diagonal, SVG to OM and SVG to distal RCA in 2016 Carotid artery disease status post stenting of the right carotid artery July 2017 with evidence of significant stenosis noted in the left carotid artery on CT of the neck Pharyngeal/tonsillar cancer status post chemoradiation and radical neck dissection History of Hypertension Dyslipidemia Former nicotine dependence PLAN Does not appear to be in acute heart failure on exam. Echocardiogram revealed EF 5560%, no significant valvular or wall motion abnormalities Pulmonary following No indication for diuretics at this time Patient started on IV antibiotics in ER No further changes from cardiology perspective. We will follow the patient in the. Please reconsult if needed. Nurse practitioner note has been reviewed by physician. Signing provider agrees with the documented findings, assessment, and plan of care. Objective - Vital Signs Vital signs: Vital Signs Temp 97.9 F 04/19/22 12:08 Pulse 111 H 04/19/22 12:08 Resp 20 04/19/22 12:08 BP 164/90 04/19/22 12:08 Pulse Ox 96 04/19/22 12:08 FiO2 60 04/18/22 14:43 Intake & Output 04/18/22 04/19/22 04/19/22 18:59 06:59 18:59 Intake Total 110 Output Total 1125 200 Balance -1015 -200 Weight 61.235 kg 60.5 kg 60.5 kg Intake: IV 10 .9 10 mL 10 Intake, IV Titration 100 Amount Piperacillin-Tazobactam 3 100 .375 gm In Sodium Chloride 0.9% 100 ml @ 25 mls/hr IVPB Q12HR [facility] Rx #:[id number] Output: Urine 1125 200 Other: Voiding Method Indwelling Catheter Indwelling Catheter Indwelling Catheter - Labs CBC & Chem 7: 04/17/22 23:48 04/19/22 09:07 Labs: Abnormal Lab Results - Last 24 Hours (Table) 04/18/22 04/19/22 04/19/22 Range/Units 20:50 06:04 09:07 BUN 48 H (9-20) mg/dL Glucose 127 H (74-99) mg/dL POC Glucose (mg/dL) 117 H 129 H (70-110) mg/dL 04/19/22 Range/Units 11:42 BUN (9-20) mg/dL Glucose (74-99) mg/dL POC Glucose (mg/dL) 124 H (70-110) mg/dL Microbiology - Last 24 Hours (Table) 04/17/22 23:44 Blood Culture Gram Stain - Preliminary Blood 04/17/22 23:44 Blood Culture - Final Blood 04/18/22 00:18 Gram Stain - Preliminary Sputum Sputum Culture - Preliminary 04/17/22 23:30 Blood Culture - Preliminary Blood No Growth after 24 hours
[2022-04-19 16:44] LABS: Glucose,Whole Blood 125 mg/dL (70-110)
[2022-04-19] MEDS: ATORVASTATIN 20 MG TAB PEG/G-TUBE SCH (17:25)
--- NOTE | 2022-04-19 19:40 | P.PN ---
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 Presents because of dyspnea. As per patient with family at bedside including state patient has history of aspiration pneumonia several times, last time was discharged on 03/21/2022. He is also complaining of from worsening productive cough, speech looks infected. at home he is 2.5-3 L/m. At baseline and is able to walk by himself. He is known to his blood pressure fluctuates. Also is known borderline blood pressure on midodrine and sodium tablets twice a day. Patient denies diarrhea. No smoking, alcohol or illicit drugs. Edwards catheter was placed in the emergency room. On admission he is tachycardic and tachypneic, heart rate was up to 156 and rhythm rate 27-30, he is on BiPAP machine. A febrile currently but he had fever of 101.5 on admission. Currently he is saturating 93% while on BiPAP, He had elevated white cell count 14.6 although he was on steroids. Hemoglobin 11.6, platelet normal. INR is unremarkable. Creatinine is slightly elevated at 1.3, with baseline 1.0-1.2 Troponin are elevated 0.07, 0.13, 0.26. ProBNP is 942. Coronavirus and influenza virus is a undetected Chest x-ray: There is some pulmonary interstitial mild edema which appears new compared to old exam. There is underlying COPD. This could be a typical heart failure or acute interstitial pneumonia EKG showing ectopic atrial tachycardia at a rate of 131 In the emergency room patient received steroids, Unasyn, ceftriaxone, bronchodilator, Dilaudid, Reglan. 04/19/2022 Patient sitting up in bed fully awake and oriented, he is talking freely and easily. His oxygen requirements went up to 10 L/m however he feels better and more easier for him to breathe with minimal cough and no chest pain. Sputum culture is growing presumptive staph and gram-negative bacilli patient kept on Zosyn and IV Solu-Medrol 60 mg Dietary service to provide instruction on starting PEG tube feeding. [facility] Supervisor signs of the case Objective - Vital Signs Vital signs: Vital Signs Temp 97.9 F 04/19/22 12:08 Pulse 111 H 04/19/22 12:08 Resp 20 04/19/22 12:08 BP 164/90 04/19/22 12:08 Pulse Ox 96 04/19/22 12:08 FiO2 60 04/18/22 14:43 Intake & Output 04/18/22 04/19/22 04/19/22 18:59 06:59 18:59 Intake Total 110 Output Total 1125 200 Balance -1015 -200 Weight 61.235 kg 60.5 kg 60.5 kg Intake: IV 10 .9 10 mL 10 Intake, IV Titration 100 Amount Piperacillin-Tazobactam 3 100 .375 gm In Sodium Chloride 0.9% 100 ml @ 25 mls/hr IVPB Q12HR [facility] Rx #:[id number] Output: Urine 1125 200 Other: Voiding Method Indwelling Catheter Indwelling Catheter Indwelling Catheter - Exam GENERAL: The patient is alert and oriented x3, not in any acute distress. Well developed, well nourished. HEENT: Pupils are round and equally reacting to light. EOMI. No scleral icterus. No conjunctival pallor. Normocephalic, atraumatic. No pharyngeal erythema. No thyromegaly. CARDIOVASCULAR: S1 and S2 present. No murmurs, rubs, or gallops. -PULMONARY: Chest is clear to auscultation, no crackles. Scattered wheezing -ABDOMEN: Soft, nontender, nondistended, normoactive bowel sounds. No palpable organomegaly. PEG tube in a Place MUSCULOSKELETAL: No joint swelling or deformity. EXTREMITIES: No cyanosis, clubbing, or pedal edema. NEUROLOGICAL: Gross neurological examination did not reveal any focal deficits. SKIN: No rashes. no petechiae. - Labs CBC & Chem 7: 04/17/22 23:48 04/19/22 09:07 Labs: Abnormal Lab Results - Last 24 Hours (Table) 04/18/22 04/19/22 04/19/22 Range/Units 20:50 06:04 09:07 BUN 48 H (9-20) mg/dL Glucose 127 H (74-99) mg/dL POC Glucose (mg/dL) 117 H 129 H (70-110) mg/dL 04/19/22 Range/Units 11:42 BUN (9-20) mg/dL Glucose (74-99) mg/dL POC Glucose (mg/dL) 124 H (70-110) mg/dL Microbiology - Last 24 Hours (Table) 04/18/22 00:18 Gram Stain - Preliminary Sputum Sputum Culture - Preliminary Gram Neg Bacilli Presumptive Staph aureus 04/17/22 23:44 Blood Culture Gram Stain - Preliminary Blood 04/17/22 23:44 Blood Culture - Final Blood 04/17/22 23:30 Blood Culture - Preliminary Blood No Growth after 24 hours Assessment and Plan Assessment: Possible healthcare associated pneumonia Acute COPD exacerbation Acute on chronic hypoxic respiratory failure sepsis with tachypnea, tachycardia and fever with leukocytosis Elevated troponin Hypertension Hyperlipidemia History of GERD History of coronary artery disease status post CABG History of pharyngeal cancer and dysphagia status post PEG tube placement Chronic kidney disease stage II Hearing difficulty Plan: This is a pleasant 76 years old male who presents with COPD and pneumonia Continue with Zosyn. Patient also with history of ESBL. Continue with Solu-Medrol and bronchodilator Pulmonary consult Cardiology consult Dietary consult Labs and medication were reviewed.. Continue same treatment. Continue with symptomatic treatment. Resume home medication. Monitor lytes and vitals. DVT and GI prophylaxis. Further recommendations as per clinical course of the patient DVT prophylaxis: Subcutaneous heparin GI Prophylaxis: Pepcid PT/OT: Pending Prognosis is guarded
[2022-04-20 00:12] LABS: Glucose,Whole Blood 158 mg/dL (70-110)
[2022-04-20] MEDS: INSULIN ASPART (NovoLOG) 100 UNIT/ML VIAL SQ SCH ×4 (00:27→18:36)
[2022-04-20] MEDS: methylPREDNISolone SOD SUCCI 125 MG/2 ML VIAL IV SCH ×4 (00:30→18:37)
[2022-04-20] MEDS: PIPERACILLIN-TAZOBACTAM 3.375 GM in SODIUM CHLORIDE 0.9% 100 ML IVPB SCH ×3 (05:40→20:05)
[2022-04-20 06:14] LABS: Glucose,Whole Blood 201 mg/dL (70-110)
[2022-04-20] MEDS: FORMOTEROL FUMARATE 20 MCG/2 ML NEBU INHALATION SCH ×2 (07:55→19:49)
[2022-04-20] MEDS: BUDESONIDE 1 MG/2 ML NEBU INHALATION SCH ×2 (07:55→19:49)
[2022-04-20] MEDS: IPRATROPIUM-ALBUTEROL 3 ML NEB INHALATION SCH ×4 (07:55→19:49)
--- NOTE | 2022-04-20 08:11 | P.PN ---
Subjective Progress Note Date: 04/19/22 Principal diagnosis: Pneumonia and bacteremia Patient is a 76-year-old male with a past medical history significant for tonsillopharyngeal cancer status post chemoradiation patient did have PEG tube for feeding he also history of COPD CVA hypertension hyperlipidemia history of recurrent aspiration pneumonia patient presented to hospital last night for evaluation of increasing shortness of breath, patient has been diagnosed with a pneumonia now with evidence of gram-negative bacteremia. on today's evaluation that is a 04/19/2022, the patient denies having any fever or any chills, the patient is breathing comfortably still having a cough and is bringing up some sputum denies any nausea no vomiting no abdominal pain no diarrhea Objective - Vital Signs Vital signs: Vital Signs Temp 97.8 F 04/19/22 08:59 Pulse 104 H 04/19/22 11:17 Resp 20 04/19/22 08:59 BP 156/86 04/19/22 08:59 Pulse Ox 94 L 04/19/22 08:59 FiO2 60 04/18/22 14:43 Intake & Output 04/18/22 04/19/22 04/19/22 18:59 06:59 18:59 Intake Total 110 Output Total 1125 200 Balance -1015 -200 Weight 61.235 kg 60.5 kg 60.5 kg Intake: IV 10 .9 10 mL 10 Intake, IV Titration 100 Amount Piperacillin-Tazobactam 3 100 .375 gm In Sodium Chloride 0.9% 100 ml @ 25 mls/hr IVPB Q12HR [facility] Rx #:[id number] Output: Urine 1125 200 Other: Voiding Method Indwelling Catheter Indwelling Catheter Indwelling Catheter - Exam GENERAL DESCRIPTION: An elderly male lying in bed in no distress RESPIRATORY SYSTEM: Unlabored breathing , coarse breath sounds bilaterally HEART: S1 S2 regular rate and rhythm , ABDOMEN: Soft , no tenderness EXTREMITIES: No edema feet - Labs CBC & Chem 7: 04/17/22 23:48 04/19/22 09:07 Labs: Abnormal Lab Results - Last 24 Hours (Table) 04/18/22 04/18/22 04/19/22 Range/Units 12:46 20:50 06:04 Carbon Dioxide 18 L (22-30) mmol/L BUN 38 H (9-20) mg/dL Creatinine 1.38 H (0.66-1.25) mg/dL Glucose (74-99) mg/dL POC Glucose (mg/dL) 117 H 129 H (70-110) mg/dL Calcium 8.3 L (8.4-10.2) mg/dL 04/19/22 04/19/22 Range/Units 09:07 11:42 Carbon Dioxide (22-30) mmol/L BUN 48 H (9-20) mg/dL Creatinine (0.66-1.25) mg/dL Glucose 127 H (74-99) mg/dL POC Glucose (mg/dL) 124 H (70-110) mg/dL Calcium (8.4-10.2) mg/dL Microbiology - Last 24 Hours (Table) 04/18/22 00:18 Gram Stain - Preliminary Sputum Sputum Culture - Preliminary 04/17/22 23:30 Blood Culture - Preliminary Blood No Growth after 24 hours 04/17/22 23:44 Blood Culture - Preliminary Blood No Growth after 24 hours Assessment and Plan (1) Aspiration pneumonia Current Visit: Yes Status: Acute Code(s): J69.0 - PNEUMONITIS DUE TO INHALATION OF FOOD AND VOMIT SNOMED Code(s): 273745628 Plan: 1patient presented to hospital with sepsis and respiratory have fever elevated white count hypoxemia predominantly respiratory symptoms concerning likely for pneumonia questionable aspiration etiology. 2blood cultures are growing gram-negative bacilli and sputum culture are currently pending 3patient to continue with the Zosyn 3.375 g. Every 8 hour while waiting for the culture to finalize and monitor clinical course closely Time with Patient: Less than 30
[2022-04-20 08:37] LABS: HCT 30.3 % (39.0-53.0); Hypochromasia Slight; MCH 28.8 pg (25.0-35.0); MCHC 31.5 g/dL (31.0-37.0); MCV 91.4 fL (80.0-100.0); Mean Platelet Volume 7.7; Platelet Count 272 k/uL (150-450); RBC 3.32 m/uL (4.30-5.90); RDW 15.5 % (11.5-15.5); WBC 17.2 k/uL (3.8-10.6)
[2022-04-20 08:51] LABS: Magnesium 1.8 mg/dL (1.6-2.3); Potassium 3.9 mmol/L (3.5-5.1)
[2022-04-20 08:54] LABS: HGB 9.6 gm/dL (13.0-17.5)
[2022-04-20] MEDS: ASPIRIN 81 MG PEG/G-TUBE SCH (10:30)
[2022-04-20] MEDS: FAMOTIDINE 20 MG/2 ML VIAL IV SCH (10:30)
[2022-04-20] MEDS: HEPARIN SODIUM,PORCINE/PF 5,000 UNIT/0.5 ML SYRINGE SQ SCH ×2 (10:30→20:05)
--- NOTE | 2022-04-20 12:03 | P.PN ---
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 Presents because of dyspnea. As per patient with family at bedside including state patient has history of aspiration pneumonia several times, last time was discharged on 03/21/2022. He is also complaining of from worsening productive cough, speech looks infected. at home he is 2.5-3 L/m. At baseline and is able to walk by himself. He is known to his blood pressure fluctuates. Also is known borderline blood pressure on midodrine and sodium tablets twice a day. Patient denies diarrhea. No smoking, alcohol or illicit drugs. Edwards catheter was placed in the emergency room. On admission he is tachycardic and tachypneic, heart rate was up to 156 and rhythm rate 27-30, he is on BiPAP machine. A febrile currently but he had fever of 101.5 on admission. Currently he is saturating 93% while on BiPAP, He had elevated white cell count 14.6 although he was on steroids. Hemoglobin 11.6, platelet normal. INR is unremarkable. Creatinine is slightly elevated at 1.3, with baseline 1.0-1.2 Troponin are elevated 0.07, 0.13, 0.26. ProBNP is 942. Coronavirus and influenza virus is a undetected Chest x-ray: There is some pulmonary interstitial mild edema which appears new compared to old exam. There is underlying COPD. This could be a typical heart failure or acute interstitial pneumonia EKG showing ectopic atrial tachycardia at a rate of 131 In the emergency room patient received steroids, Unasyn, ceftriaxone, bronchodilator, Dilaudid, Reglan. 04/19/2022 Patient sitting up in bed fully awake and oriented, he is talking freely and easily. His oxygen requirements went up to 10 L/m however he feels better and more easier for him to breathe with minimal cough and no chest pain. Sputum culture is growing presumptive staph and gram-negative bacilli patient kept on Zosyn and IV Solu-Medrol 60 mg Dietary service to provide instruction on starting PEG tube feeding. Family Support Coordinator signs of the case 04/20/2012 Patient is sitting in chair today, reports improvement in his dyspnea however he still tachypneic with some wheezing and coarse crepitation. His saturation is i mproving and requirements to 8 L/m. Hysterectomy and PEG tube feeding at 50 mm per hour He has positive blood culture with Haemophilus influenza and sputum culture with gram-negative bacilli and presumptive staph. Patient currently on Zosyn as well as Solu-Medrol 60 mg area Infectious disease on the case We'll order incentive spirometry Objective - Vital Signs Vital signs: Vital Signs Temp 98.2 F 04/20/22 10:26 Pulse 103 H 04/20/22 10:26 Resp 20 04/20/22 10:26 BP 146/91 04/20/22 10:26 Pulse Ox 94 L 04/20/22 04:00 FiO2 60 04/18/22 14:43 Intake & Output 04/19/22 04/20/22 04/20/22 18:59 06:59 18:59 Intake Total 50 Output Total 1000 500 Balance -950 -500 Weight 60.5 kg Intake: Tube Feeding 50 Output: Urine 1000 500 Other: Voiding Method Indwelling Catheter Indwelling Catheter # Voids 2 # Bowel Movements 0 - Exam GENERAL: The patient is alert and oriented x3, not in any acute distress. Well developed, well nourished. HEENT: Pupils are round and equally reacting to light. EOMI. No scleral icterus. No conjunctival pallor. Normocephalic, atraumatic. No pharyngeal erythema. No thyromegaly. CARDIOVASCULAR: S1 and S2 present. No murmurs, rubs, or gallops. -PULMONARY: Chest is clear to auscultation, no crackles. Scattered wheezing -ABDOMEN: Soft, nontender, nondistended, normoactive bowel sounds. No palpable organomegaly. PEG tube in a Place MUSCULOSKELETAL: No joint swelling or deformity. EXTREMITIES: No cyanosis, clubbing, or pedal edema. NEUROLOGICAL: Gross neurological examination did not reveal any focal deficits. SKIN: No rashes. no petechiae. - Labs CBC & Chem 7: 04/20/22 07:37 04/20/22 07:37 Labs: Abnormal Lab Results - Last 24 Hours (Table) 04/19/22 04/19/22 04/20/22 Range/Units 09:07 16:42 00:11 WBC (3.8-10.6) k/uL RBC (4.30-5.90) m/uL Hgb (13.0-17.5) gm/dL Hct (39.0-53.0) % BUN (9-20) mg/dL Glucose (74-99) mg/dL POC Glucose (mg/dL) 125 H 158 H (70-110) mg/dL Procalcitonin 27.70 H (0.02-0.09) ng/mL 04/20/22 04/20/22 04/20/22 Range/Units 06:13 07:37 07:37 WBC 17.2 H (3.8-10.6) k/uL RBC 3.32 L (4.30-5.90) m/uL Hgb 9.6 L D (13.0-17.5) gm/dL Hct 30.3 L (39.0-53.0) % BUN 49 H (9-20) mg/dL Glucose 152 H (74-99) mg/dL POC Glucose (mg/dL) 201 H (70-110) mg/dL Procalcitonin (0.02-0.09) ng/mL Microbiology - Last 24 Hours (Table) 04/18/22 00:18 Gram Stain - Preliminary Sputum Sputum Culture - Preliminary Gram Neg Bacilli Presumptive Staph aureus 04/17/22 23:44 Blood Culture Gram Stain - Preliminary Blood Blood Culture - Preliminary Haemophilus influenzae 04/17/22 23:30 Blood Culture Gram Stain - Preliminary Blood 04/17/22 23:30 Blood Culture - Final Blood 04/17/22 23:44 Blood Culture - Final Blood Assessment and Plan Assessment: Possible healthcare associated pneumonia Acute COPD exacerbation Acute on chronic hypoxic respiratory failure Haemophilus influenza bacteremia sepsis with tachypnea, tachycardia and fever with leukocytosis Elevated troponin Hypertension Hyperlipidemia History of GERD History of coronary artery disease status post CABG History of pharyngeal cancer and dysphagia status post PEG tube placement Chronic kidney disease stage II Hearing difficulty Plan: This is a pleasant 76 years old male who presents with COPD and pneumonia Continue with Zosyn. Patient also with history of ESBL. Continue with Solu-Medrol and bronchodilator Pulmonary consult Cardiology consult Dietary consult Labs and medication were reviewed.. Continue same treatment. Continue with symptomatic treatment. Resume home medication. Monitor lytes and vitals. DVT and GI prophylaxis. Further recommendations as per clinical course of the patient DVT prophylaxis: Subcutaneous heparin GI Prophylaxis: Pepcid PT/OT: Pending Prognosis is guarded
[2022-04-20 12:26] LABS: Band Neutrophils % 13 %; Lymphocytes # (M) 0.52 k/uL (1.0-4.8); Metamyelocytes # (M) 0.69 k/uL (0); Metamyelocytes % 4 %; Monocytes # (M) 0.34 k/uL (0-1.0); Neutrophils % (M) 79 %; Nucleated Red Blood Cells 0 /100 WBC (0-0); Total Cells Counted 200
[2022-04-20 12:44] LABS: Glucose,Whole Blood 174 mg/dL (70-110)
--- NOTE | 2022-04-20 12:52 | P.PN ---
Subjective Progress Note Date: 04/20/22 Principal diagnosis: Chest congestion and shortness of breath. 76-year-old male well-known to me. He presented to the emergency room on April 17, at 11 PM, complaining of increasing shortness of breath. He was brought in by EMS. He apparently was so short of breath, he could not really give much of a history. I see him in the emergency room this morning, and trauma room 4. He is currently on BiPAP. He is on BiPAP settings of 14/5 and 60% FiO2. I confirm the fact that the patient is a DO NOT RESUSCITATE/DO NOT INTUBATE patient. He is also getting saline bolus. Saturations are 97%. He has a history of coronary disease, tonsillar/pharyngeal cancer, surgery and chemoradiation, COPD, CVA, GERD, hyperlipidemia, hypertension, ammonia, among other things. He did swo ve a four-vessel bypass back in 2016, as well as a radical neck dissection for his energy [place] cancer, and 2006. He is a former smoker. White count 14.6, hemoglobin 11.6, hematocrit 36.6, and platelet count 420,000 sodium 136, potassium 4.4, chlorides 94, CO2 29, BUN 39, creatinine 1.33. Troponins are 0.079, 0.133 and 0.264. Chest x-ray shows some patchy diffuse interstitial changes, which could relate to interstitial edema or interstitial pneumonia, more right-sided than left-sided. On 04/19/2022 patient seen in follow-up on selective care unit. Patient looks better today, breathing easier, lung sounds reveal some mild scattered wheezes, currently patient is on 10 L of oxygen satting 94%, afebrile, blood pressure is been stable. Patient remains nothing by mouth, he is awaiting a registered dietitian evaluation to restart his tube feedings per the PEG tube. Patient continues on nebulized bronchodilators, IV steroids and Zosyn for antibiotic coverage. His blood and sputum cultures have been sent, sputum culture is pending, preliminary Gram stain showing rare PMNs, rare epithelial cells, many gram-positive cocci and many gram-negative bacilli. Blood cultures are negative. Denies any hemoptysis, he is bringing up some green colored phlegm. But overall feels improved. Progress note dated 04/20/2022. The patient appears to be doing much better today. He sitting upright in a chair. He is getting tube feeds at 50 mL an hour. The patient's getting saline at 20 mL an hour. He is on 6 L of oxygen. Today, we will order him a flutter valve. He still has chest congestion when he coughs. He is coughing up yellow/brown phlegm. He does feel better though. White count 17.2, hemoglobin 9.6, hematocrit 30.3, white count 372,000. Sodium 139, potassium 3.9, chlorides 100, CO2 29, BUN 49, and creatinine 1.03. Sputum from April 18 shows gram- negative bacilli and presumptive staph aureus. Blood cultures from April 17 show Haemophilus influenzae. He is currently on Zosyn, although, infectious diseases, is on the case. Objective - Vital Signs Vital signs: Vital Signs Temp 98.2 F 04/20/22 10:26 Pulse 104 H 04/20/22 12:37 Resp 20 04/20/22 10:26 BP 146/91 04/20/22 10:26 Pulse Ox 94 L 04/20/22 04:00 FiO2 60 04/18/22 14:43 Intake & Output 04/19/22 04/20/22 04/20/22 18:59 06:59 18:59 Intake Total 50 Output Total 1000 500 Balance -950 -500 Weight 60.5 kg Intake: Tube Feeding 50 Output: Urine 1000 500 Other: Voiding Method Indwelling Catheter Indwelling Catheter # Voids 2 # Bowel Movements 0 - Exam No acute distress, oriented 3. Currently on 6 L of oxygen. No respiratory distress. No conversational dyspnea or use of accessory muscles. HEENT examination is grossly unremarkable. Neck supple. Full range of motion. No adenopathy thyromegaly or neck vein distention. Scarring, from previous surgery and radiation is noted. Cardiovascular examination reveals regular rhythm rate. S1-S2 normal. No S3 or S4. No discernible murmur noted. Heart sounds are distant. Heart rate 104 bpm. Lungs reveal improved bilateral breath sounds. Coarse bilateral rhonchi though, are still noted. No wheezes or crackles. Breath sounds are equal bilaterally. Cough is wet and congested. Abdomen soft bowel sounds are heard. No masses or tenderness. PEG tube is noted. Extremities are intact. No cyanosis clubbing or edema. Skin is without rash or lesion. Neurologic examination is brief but nonfocal. - Labs CBC & Chem 7: 04/20/22 07:37 04/20/22 07:37 Labs: Abnormal Lab Results - Last 24 Hours (Table) 04/19/22 04/19/22 04/20/22 Range/Units 09:07 16:42 00:11 WBC (3.8-10.6) k/uL RBC (4.30-5.90) m/uL Hgb (13.0-17.5) gm/dL Hct (39.0-53.0) % Neutrophils # (Manual) (1.3-7.7) k/uL Lymphocytes # (Manual) (1.0-4.8) k/uL Metamyelocytes # (Man) (0) k/uL BUN (9-20) mg/dL Glucose (74-99) mg/dL POC Glucose (mg/dL) 125 H 158 H (70-110) mg/dL Procalcitonin 27.70 H (0.02-0.09) ng/mL 04/20/22 04/20/22 04/20/22 Range/Units 06:13 07:37 07:37 WBC 17.2 H (3.8-10.6) k/uL RBC 3.32 L (4.30-5.90) m/uL Hgb 9.6 L D (13.0-17.5) gm/dL Hct 30.3 L (39.0-53.0) % Neutrophils # (Manual) 15.80 H (1.3-7.7) k/uL Lymphocytes # (Manual) 0.52 L (1.0-4.8) k/uL Metamyelocytes # (Man) 0.69 H (0) k/uL BUN 49 H (9-20) mg/dL Glucose 152 H (74-99) mg/dL POC Glucose (mg/dL) 201 H (70-110) mg/dL Procalcitonin (0.02-0.09) ng/mL 04/20/22 Range/Units 12:42 WBC (3.8-10.6) k/uL RBC (4.30-5.90) m/uL Hgb (13.0-17.5) gm/dL Hct (39.0-53.0) % Neutrophils # (Manual) (1.3-7.7) k/uL Lymphocytes # (Manual) (1.0-4.8) k/uL Metamyelocytes # (Man) (0) k/uL BUN (9-20) mg/dL Glucose (74-99) mg/dL POC Glucose (mg/dL) 174 H (70-110) mg/dL Procalcitonin (0.02-0.09) ng/mL Microbiology - Last 24 Hours (Table) 04/18/22 00:18 Gram Stain - Preliminary Sputum Sputum Culture - Preliminary Gram Neg Bacilli Presumptive Staph aureus 04/17/22 23:44 Blood Culture Gram Stain - Preliminary Blood Blood Culture - Preliminary Haemophilus influenzae 04/17/22 23:30 Blood Culture Gram Stain - Preliminary Blood 04/17/22 23:30 Blood Culture - Final Blood 04/17/22 23:44 Blood Culture - Final Blood Assessment and Plan Assessment: Acute hypoxemic respiratory failure, which may relate interstitial edema and/or interstitial pneumonia. Bacterial pneumonia, secondary to gram-negative bacilli as well as presumptive staph aureus. Bacteremia secondary to Haemophilus influenzae. History of CAD, previous bypass grafting, 2017. Status post radical neck dissection for pharyngeal/tonsillar cancer, 2005, with subsequent chemoradiation. History of CVA. History of hypertension. History of hyperlipidemia. History of pneumonia. Hypothyroidism. Gastroesophageal reflux disease. Stage II chronic kidney disease. Multiple other medical problems and comorbidities. Plan: Plan dated 04/18/2022. The patient is seen in the emergency room, trauma room 4. The patient is evaluated and examined. Labs, x-rays, and medications are reviewed. The patient's overall prognosis is very poor. He is a DO NOT RESUSCITATE/DO NOT INTUBATE patient. I confirm that with the patient today. The patient remains on BiPAP therapy. He is getting a fluid bolus. He should be treated with breathing treatments, antibiotics, etc. We will continue to follow. Plan dated 04/20/2022. The patient appears to be doing better. He is on 6 L. We will order him a flutter valve. Culture data is reviewed. He remains on Zosyn. Infectious diseases is on the case. They may decide to adjust antibiotics. The patient is a DO NOT RESUSCITATE/DO NOT INTUBATE patient. Labs, x-rays, and medications are reviewed. Prognosis is certainly guarded. Time with Patient: Less than 30
[2022-04-20] MEDS: ATORVASTATIN 20 MG TAB PEG/G-TUBE SCH (16:04)
[2022-04-20 17:08] LABS: Glucose,Whole Blood 143 mg/dL (70-110)
[2022-04-20] MEDS: MIRTAZAPINE 15 MG TAB PEG/G-TUBE SCH (20:04)
[2022-04-21 00:36] LABS: Glucose,Whole Blood 158 mg/dL (70-110)
[2022-04-21] MEDS: INSULIN ASPART (NovoLOG) 100 UNIT/ML VIAL SQ SCH ×5 (00:48→23:44)
[2022-04-21] MEDS: methylPREDNISolone SOD SUCCI 125 MG/2 ML VIAL IV SCH ×5 (00:53→23:44)
[2022-04-21] MEDS: PIPERACILLIN-TAZOBACTAM 3.375 GM in SODIUM CHLORIDE 0.9% 100 ML IVPB SCH ×2 (04:15→12:47)
[2022-04-21 06:13] LABS: Glucose,Whole Blood 161 mg/dL (70-110)
[2022-04-21] MEDS: BUDESONIDE 1 MG/2 ML NEBU INHALATION SCH ×2 (08:20→20:07)
[2022-04-21] MEDS: FORMOTEROL FUMARATE 20 MCG/2 ML NEBU INHALATION SCH ×2 (08:20→20:07)
[2022-04-21] MEDS: IPRATROPIUM-ALBUTEROL 3 ML NEB INHALATION SCH ×4 (08:21→20:07)
[2022-04-21 08:41] LABS: Basophils % (A) 0 %; Eosinophils % (A) 0 %; HCT 32.7 % (39.0-53.0); HGB 10.2 gm/dL (13.0-17.5); Hypochromasia Slight; Lymphocytes # (A) 0.5 k/uL (1.0-4.8); Lymphocytes % (A) 4 %; MCH 28.5 pg (25.0-35.0); MCHC 31.1 g/dL (31.0-37.0); MCV 91.7 fL (80.0-100.0); Mean Platelet Volume 7.8; Monocytes # (A) 0.3 k/uL (0-1.0); Monocytes % (A) 2 %; Neutrophils # (A) 12.8 k/uL (1.3-7.7); Neutrophils % (A) 94 %; Platelet Count 265 k/uL (150-450); RBC 3.56 m/uL (4.30-5.90); RDW 15.4 % (11.5-15.5); WBC 13.7 k/uL (3.8-10.6)
[2022-04-21 08:50] LABS: Calcium 9.2 mg/dL (8.4-10.2); Magnesium 1.8 mg/dL (1.6-2.3); Potassium 3.8 mmol/L (3.5-5.1)
--- NOTE | 2022-04-21 10:31 | P.PN ---
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 Presents because of dyspnea. As per patient with family at bedside including state patient has history of aspiration pneumonia several times, last time was discharged on 03/21/2022. He is also complaining of from worsening productive cough, speech looks infected. at home he is 2.5-3 L/m. At baseline and is able to walk by himself. He is known to his blood pressure fluctuates. Also is known borderline blood pressure on midodrine and sodium tablets twice a day. Patient denies diarrhea. No smoking, alcohol or illicit drugs. Edwards catheter was placed in the emergency room. On admission he is tachycardic and tachypneic, heart rate was up to 156 and rhythm rate 27-30, he is on BiPAP machine. A febrile currently but he had fever of 101.5 on admission. Currently he is saturating 93% while on BiPAP, He had elevated white cell count 14.6 although he was on steroids. Hemoglobin 11.6, platelet normal. INR is unremarkable. Creatinine is slightly elevated at 1.3, with baseline 1.0-1.2 Troponin are elevated 0.07, 0.13, 0.26. ProBNP is 942. Coronavirus and influenza virus is a undetected Chest x-ray: There is some pulmonary interstitial mild edema which appears new compared to old exam. There is underlying COPD. This could be a typical heart failure or acute interstitial pneumonia EKG showing ectopic atrial tachycardia at a rate of 131 In the emergency room patient received steroids, Unasyn, ceftriaxone, bronchodilator, Dilaudid, Reglan. 04/19/2022 Patient sitting up in bed fully awake and oriented, he is talking freely and easily. His oxygen requirements went up to 10 L/m however he feels better and more easier for him to breathe with minimal cough and no chest pain. Sputum culture is growing presumptive staph and gram-negative bacilli patient kept on Zosyn and IV Solu-Medrol 60 mg Dietary service to provide instruction on starting PEG tube feeding. Analog Device Designer signs of the case 04/20/2012 Patient is sitting in chair today, reports improvement in his dyspnea however he still tachypneic with some wheezing and coarse crepitation. His saturation is i mproving and requirements to 8 L/m. Hysterectomy and PEG tube feeding at 50 mm per hour He has positive blood culture with Haemophilus influenza and sputum culture with gram-negative bacilli and presumptive staph. Patient currently on Zosyn as well as Solu-Medrol 60 mg area Infectious disease on the case We'll order incentive spirometry 04/21/2022 Patient breathing pattern continue to improve slowly and gradually. He remains and chair since yesterday, oxygen requirements down to 4 L/m today. And he is less wheezing and responding to treatment as well. Still getting PEG tube feedings running at 50 mL/h and looks to the risk that well He has positive sputum culture for Klebsiella and MRSA and blood culture for Haemophilus influenzae Currently covered with Zosyn. He is on Solu-Medrol 60 mg and no IV fluids. Objective - Vital Signs Vital signs: Vital Signs Temp 98.4 F 04/21/22 00:00 Pulse 96 04/21/22 08:50 Resp 20 04/21/22 04:00 BP 130/91 04/21/22 04:00 Pulse Ox 97 04/21/22 04:00 FiO2 60 04/18/22 14:43 Intake & Output 04/20/22 04/21/22 04/21/22 18:59 06:59 18:59 Intake Total 0 Output Total 800 775 Balance -800 -775 Intake: Oral 0 Output: Urine 800 775 Other: Voiding Method Indwelling Catheter Indwelling Catheter # Bowel Movements 0 - Exam GENERAL: The patient is alert and oriented x3, not in any acute distress. Well developed, well nourished. HEENT: Pupils are round and equally reacting to light. EOMI. No scleral icterus. No conjunctival pallor. Normocephalic, atraumatic. No pharyngeal erythema. No thyromegaly. CARDIOVASCULAR: S1 and S2 present. No murmurs, rubs, or gallops. -PULMONARY: Chest is clear to auscultation, no crackles. Scattered wheezing -ABDOMEN: Soft, nontender, nondistended, normoactive bowel sounds. No palpable organomegaly. PEG tube in a Place MUSCULOSKELETAL: No joint swelling or deformity. EXTREMITIES: No cyanosis, clubbing, or pedal edema. NEUROLOGICAL: Gross neurological examination did not reveal any focal deficits. SKIN: No rashes. no petechiae. - Labs CBC & Chem 7: 04/21/22 07:47 04/21/22 07:47 Labs: Abnormal Lab Results - Last 24 Hours (Table) 04/20/22 04/20/22 04/20/22 Range/Units 07:37 12:42 17:05 WBC (3.8-10.6) k/uL RBC (4.30-5.90) m/uL Hgb (13.0-17.5) gm/dL Hct (39.0-53.0) % Neutrophils # (1.3-7.7) k/uL Neutrophils # (Manual) 15.80 H (1.3-7.7) k/uL Lymphocytes # (1.0-4.8) k/uL Lymphocytes # (Manual) 0.52 L (1.0-4.8) k/uL Metamyelocytes # (Man) 0.69 H (0) k/uL BUN (9-20) mg/dL Glucose (74-99) mg/dL POC Glucose (mg/dL) 174 H 143 H (70-110) mg/dL 04/21/22 04/21/22 04/21/22 Range/Units 00:35 06:12 07:47 WBC 13.7 H (3.8-10.6) k/uL RBC 3.56 L (4.30-5.90) m/uL Hgb 10.2 L (13.0-17.5) gm/dL Hct 32.7 L (39.0-53.0) % Neutrophils # 12.8 H (1.3-7.7) k/uL Neutrophils # (Manual) (1.3-7.7) k/uL Lymphocytes # 0.5 L (1.0-4.8) k/uL Lymphocytes # (Manual) (1.0-4.8) k/uL Metamyelocytes # (Man) (0) k/uL BUN (9-20) mg/dL Glucose (74-99) mg/dL POC Glucose (mg/dL) 158 H 161 H (70-110) mg/dL 04/21/22 Range/Units 07:47 WBC (3.8-10.6) k/uL RBC (4.30-5.90) m/uL Hgb (13.0-17.5) gm/dL Hct (39.0-53.0) % Neutrophils # (1.3-7.7) k/uL Neutrophils # (Manual) (1.3-7.7) k/uL Lymphocytes # (1.0-4.8) k/uL Lymphocytes # (Manual) (1.0-4.8) k/uL Metamyelocytes # (Man) (0) k/uL BUN 53 H (9-20) mg/dL Glucose 137 H (74-99) mg/dL POC Glucose (mg/dL) (70-110) mg/dL Microbiology - Last 24 Hours (Table) 04/18/22 00:18 Gram Stain - Final Sputum Sputum Culture - Final Klebsiella pneumoniae Methicillin resist S. aureus 04/17/22 23:30 Blood Culture Gram Stain - Final Blood Blood Culture - Final Haemophilus influenzae 04/17/22 23:44 Blood Culture Gram Stain - Final Blood Blood Culture - Final Haemophilus influenzae Assessment and Plan Assessment: Acute healthcare associated pneumonia Acute COPD exacerbation Acute on chronic hypoxic respiratory failure Haemophilus influenza bacteremia sepsis with tachypnea, tachycardia and fever with leukocytosis Elevated troponin Hypertension Hyperlipidemia History of GERD History of coronary artery disease status post CABG History of pharyngeal cancer and dysphagia status post PEG tube placement Chronic kidney disease stage II Hearing difficulty Plan: This is a pleasant 76 years old male who presents with COPD and pneumonia Continue with Zosyn. Continue with Solu-Medrol and bronchodilator Pulmonary consult Cardiology consult Dietary consult Labs and medication were reviewed.. Continue same treatment. Continue with symptomatic treatment. Resume home medication. Monitor lytes and vitals. DVT and GI prophylaxis. Further recommendations as per clinical course of the patient DVT prophylaxis: Subcutaneous heparin GI Prophylaxis: Pepcid PT/OT: Pending Prognosis is guarded
[2022-04-21] MEDS: HEPARIN SODIUM,PORCINE/PF 5,000 UNIT/0.5 ML SYRINGE SQ SCH ×2 (10:36→21:37)
[2022-04-21] MEDS: FAMOTIDINE 20 MG/2 ML VIAL IV SCH (10:36)
[2022-04-21] MEDS: LEVOTHYROXINE 75 MCG TAB PEG/G-TUBE SCH (10:36)
[2022-04-21] MEDS: ASPIRIN 81 MG PEG/G-TUBE SCH (10:36)
[2022-04-21] MEDS ORDERED: VANCOMYCIN IV PER PHARMACY 1 EACH MISC MISCELLANE PRN (11:44)
[2022-04-21 12:04] LABS: Glucose,Whole Blood 169 mg/dL (70-110)
[2022-04-21] MEDS ORDERED: VANCOMYCIN 1,250 MG in SODIUM CHLORIDE 0.9% 250 ML IVPB ONE (12:30)
[2022-04-21] MEDS: ERTAPENEM 1 GM in SODIUM CHLORIDE 0.9% 50 ML IVPB SCH (13:14)
--- NOTE | 2022-04-21 13:25 | P.PN ---
Subjective Progress Note Date: 04/21/22 76-year-old male well-known to me. He presented to the emergency room on April 17, at 11 PM, complaining of increasing shortness of breath. He was brought in by EMS. He apparently was so short of breath, he could not really give much of a history. I see him in the emergency room this morning, and trauma room 4. He is currently on BiPAP. He is on BiPAP settings of 14/5 and 60% FiO2. I confirm the fact that the patient is a DO NOT RESUSCITATE/DO NOT INTUBATE patient. He is also getting saline bolus. Saturations are 97%. He has a history of coronary disease, tonsillar/pharyngeal cancer, surgery and chemoradiation, COPD, CVA, GERD, hyperlipidemia, hypertension, ammonia, among other things. He did have a four-vessel bypass back in 2016, as well as a radical neck dissection for his energy [place] cancer, and 2006. He is a former smoker. White count 14.6, hemoglobin 11.6, hematocrit 36.6, and platelet count 420,000 sodium 136, potassium 4.4, chlorides 94, CO2 29, BUN 39, creatinine 1.33. Troponins are 0.079, 0.133 and 0.264. Chest x-ray shows some patchy diffuse interstitial changes, which could relate to interstitial edema or interstitial pneumonia, more right-sided than left-sided. On 04/19/2022 patient seen in follow-up on selective care unit. Patient looks better today, breathing easier, lung sounds reveal some mild scattered wheezes, currently patient is on 10 L of oxygen satting 94%, afebrile, blood pressure is been stable. Patient remains nothing by mouth, he is awaiting a registered dietitian evaluation to restart his tube feedings per the PEG tube. Patient continues on nebulized bronchodilators, IV steroids and Zosyn for antibiotic coverage. His blood and sputum cultures have been sent, sputum culture is pending, preliminary Gram stain showing rare PMNs, rare epithelial cells, many gram-positive cocci and many gram-negative bacilli. Blood cultures are ne gative. Denies any hemoptysis, he is bringing up some green colored phlegm. But overall feels improved. Progress note dated 04/20/2022. The patient appears to be doing much better today. He sitting upright in a chair. He is getting tube feeds at 50 mL an hour. The patient's getting saline at 20 mL an hour. He is on 6 L of oxygen. Today, we will order him a flutter valve. He still has chest congestion when he coughs. He is coughing up yellow/brown phlegm. He does feel better though. White count 17.2, hemoglobin 9.6, hematocrit 30.3, white count 372,000. Sodium 139, potassium 3.9, chlorides 100, CO2 29, BUN 49, and creatinine 1.03. Sputum from April 18 shows gram- negative bacilli and presumptive staph aureus. Blood cultures from April 17 show Haemophilus influenzae. He is currently on Zosyn, although, infectious diseases, is on the case. The patient is seen today 04/21/2022 in follow-up on the cardiac floor. He is currently sitting up in the bedside. Awake and alert in no acute distress. He is on 4 L nasal cannula and maintaining O2 saturations in the 90s. He is receiving tube feedings at 50 MLS per hour. He is breathing a bit easier today. His sputum culture did test positive for MRSA and Klebsiella pneumoniae. Blood cultures are positive for Haemophilus influenza. White count 13.7. Hemoglobin 10.2. Sodium 140. Potassium 3.8. Chloride 90. Bicarb 30. BUN 53. Creatinine 0.99. He is currently on Zosyn. Objective - Vital Signs Vital signs: Vital Signs Temp 98.1 F 04/21/22 10:32 Pulse 100 04/21/22 12:27 Resp 20 04/21/22 10:32 BP 122/70 04/21/22 10:32 Pulse Ox 100 04/21/22 10:32 FiO2 60 04/18/22 14:43 Intake & Output 04/20/22 04/21/22 04/21/22 18:59 06:59 18:59 Intake Total 0 Output Total 800 775 Balance -800 -775 Intake: Oral 0 Output: Urine 800 775 Other: Voiding Method Indwelling Catheter Indwelling Catheter # Bowel Movements 0 - Exam GENERAL EXAM: Alert, very pleasant 76-year-old gentleman on 4 L nasal cannula, comfortable in no apparent distress. HEAD: Normocephalic. EYES: Normal reaction of pupils, equal size. NOSE: Clear with pink turbinates. THROAT: No erythema or exudates. NECK: No masses, no JVD. CHEST: No chest wall deformity. LUNGS: Equal air entry with bilateral rhonchi. CVS: S1 and S2 normal with no audible murmur, regular rhythm. ABDOMEN: No hepatosplenomegaly, normal bowel sounds, no guarding or rigidity. SPINE: No scoliosis or deformity SKIN: No rashes CENTRAL NERVOUS SYSTEM: No focal deficits, tone is normal in all 4 extremities. EXTREMITIES: There is no peripheral edema. No clubbing, no cyanosis. Peripheral pulses are intact. - Labs CBC & Chem 7: 04/21/22 07:47 04/21/22 07:47 Labs: Abnormal Lab Results - Last 24 Hours (Table) 04/20/22 04/21/22 04/21/22 Range/Units 17:05 00:35 06:12 WBC (3.8-10.6) k/uL RBC (4.30-5.90) m/uL Hgb (13.0-17.5) gm/dL Hct (39.0-53.0) % Neutrophils # (1.3-7.7) k/uL Lymphocytes # (1.0-4.8) k/uL BUN (9-20) mg/dL Glucose (74-99) mg/dL POC Glucose (mg/dL) 143 H 158 H 161 H (70-110) mg/dL 04/21/22 04/21/22 04/21/22 Range/Units 07:47 07:47 11:54 WBC 13.7 H (3.8-10.6) k/uL RBC 3.56 L (4.30-5.90) m/uL Hgb 10.2 L (13.0-17.5) gm/dL Hct 32.7 L (39.0-53.0) % Neutrophils # 12.8 H (1.3-7.7) k/uL Lymphocytes # 0.5 L (1.0-4.8) k/uL BUN 53 H (9-20) mg/dL Glucose 137 H (74-99) mg/dL POC Glucose (mg/dL) 169 H (70-110) mg/dL Microbiology - Last 24 Hours (Table) 04/18/22 00:18 Gram Stain - Final Sputum Sputum Culture - Final Klebsiella pneumoniae Methicillin resist S. aureus 04/17/22 23:30 Blood Culture Gram Stain - Final Blood Blood Culture - Final Haemophilus influenzae 04/17/22 23:44 Blood Culture Gram Stain - Final Blood Blood Culture - Final Haemophilus influenzae Assessment and Plan Assessment: Acute hypoxemic respiratory failure, which may relate interstitial edema and/or interstitial pneumonia. Bacterial pneumonia, secondary to MRSA and Klebsiella pneumoniae. Bacteremia secondary to Haemophilus influenzae. History of CAD, previous bypass grafting, 2017. Status post radical neck dissection for pharyngeal/tonsillar cancer, 2005, with subsequent chemoradiation. History of CVA. History of hypertension. History of hyperlipidemia. History of pneumonia. Hypothyroidism. Gastroesophageal reflux disease. Stage II chronic kidney disease. Multiple other medical problems and comorbidities. Plan: The patient was seen and evaluated Medications, labs reviewed He will be initiated on vancomycin ID is on the case and switched Zosyn to ertapenem We'll continue the current treatment plan Titrate the FiO2 as tolerated We will continue to follow I have personally seen and examined the patient, performed the documentation and the assessment and plan as written. Number of minutes spent on the visit: 10.
--- NOTE | 2022-04-21 16:01 | P.PN ---
Subjective Progress Note Date: 04/20/22 Principal diagnosis: Pneumonia and bacteremia Patient is a 76-year-old male with a past medical history significant for tonsillopharyngeal cancer status post chemoradiation patient did have PEG tube for feeding he also history of COPD CVA hypertension hyperlipidemia history of recurrent aspiration pneumonia patient presented to hospital last night for evaluation of increasing shortness of breath, patient has been diagnosed with a pneumonia now with evidence of gram-negative bacteremia. on today's evaluation that is a 04/20/2022, the patient remains to be afebrile, the patient is breathing comfortably on a 6 L nasal cannula, the patient cough has decreased in intensity still bringing up some sputum , the patient denies any nausea no vomiting no abdominal pain no diarrhea Objective - Vital Signs Vital signs: Vital Signs Temp 98.2 F 04/20/22 10:26 Pulse 104 H 04/20/22 12:37 Resp 20 04/20/22 10:26 BP 146/91 04/20/22 10:26 Pulse Ox 94 L 04/20/22 04:00 FiO2 60 04/18/22 14:43 Intake & Output 04/19/22 04/20/22 04/20/22 18:59 06:59 18:59 Intake Total 50 Output Total 1000 500 Balance -950 -500 Weight 60.5 kg Intake: Tube Feeding 50 Output: Urine 1000 500 Other: Voiding Method Indwelling Catheter Indwelling Catheter # Voids 2 # Bowel Movements 0 - Exam GENERAL DESCRIPTION: An elderly male lying in bed in no distress RESPIRATORY SYSTEM: Unlabored breathing , coarse breath sounds bilaterally HEART: S1 S2 regular rate and rhythm , ABDOMEN: Soft , no tenderness EXTREMITIES: No edema feet - Labs CBC & Chem 7: 04/21/22 07:47 04/21/22 07:47 Labs: Abnormal Lab Results - Last 24 Hours (Table) 04/19/22 04/19/22 04/20/22 Range/Units 09:07 16:42 00:11 WBC (3.8-10.6) k/uL RBC (4.30-5.90) m/uL Hgb (13.0-17.5) gm/dL Hct (39.0-53.0) % Neutrophils # (Manual) (1.3-7.7) k/uL Lymphocytes # (Manual) (1.0-4.8) k/uL Metamyelocytes # (Man) (0) k/uL BUN (9-20) mg/dL Glucose (74-99) mg/dL POC Glucose (mg/dL) 125 H 158 H (70-110) mg/dL Procalcitonin 27.70 H (0.02-0.09) ng/mL 04/20/22 04/20/22 04/20/22 Range/Units 06:13 07:37 07:37 WBC 17.2 H (3.8-10.6) k/uL RBC 3.32 L (4.30-5.90) m/uL Hgb 9.6 L D (13.0-17.5) gm/dL Hct 30.3 L (39.0-53.0) % Neutrophils # (Manual) 15.80 H (1.3-7.7) k/uL Lymphocytes # (Manual) 0.52 L (1.0-4.8) k/uL Metamyelocytes # (Man) 0.69 H (0) k/uL BUN 49 H (9-20) mg/dL Glucose 152 H (74-99) mg/dL POC Glucose (mg/dL) 201 H (70-110) mg/dL Procalcitonin (0.02-0.09) ng/mL 04/20/22 Range/Units 12:42 WBC (3.8-10.6) k/uL RBC (4.30-5.90) m/uL Hgb (13.0-17.5) gm/dL Hct (39.0-53.0) % Neutrophils # (Manual) (1.3-7.7) k/uL Lymphocytes # (Manual) (1.0-4.8) k/uL Metamyelocytes # (Man) (0) k/uL BUN (9-20) mg/dL Glucose (74-99) mg/dL POC Glucose (mg/dL) 174 H (70-110) mg/dL Procalcitonin (0.02-0.09) ng/mL Microbiology - Last 24 Hours (Table) 04/18/22 00:18 Gram Stain - Preliminary Sputum Sputum Culture - Preliminary Gram Neg Bacilli Presumptive Staph aureus 04/17/22 23:44 Blood Culture Gram Stain - Preliminary Blood Blood Culture - Preliminary Haemophilus influenzae 04/17/22 23:30 Blood Culture Gram Stain - Preliminary Blood 04/17/22 23:30 Blood Culture - Final Blood 04/17/22 23:44 Blood Culture - Final Blood Assessment and Plan (1) Aspiration pneumonia Current Visit: Yes Status: Acute Code(s): J69.0 - PNEUMONITIS DUE TO INHALATION OF FOOD AND VOMIT SNOMED Code(s): 897710154 Plan: 1patient presented to hospital with sepsis and respiratory have fever elevated white count hypoxemia predominantly respiratory symptoms concerning likely for pneumonia questionable aspiration etiology. 2blood cultures are growing Haemophilus influenzae and sputum culture are currently growing gram-negative and staph aureus 3patient seemed to have short-acting improvement and will continue with the Zosyn 3.375 g. Every 8 hour while waiting for the culture to finalize and monitor clinical course closely Time with Patient: Less than 30
--- NOTE | 2022-04-21 16:02 | P.PN ---
Subjective Progress Note Date: 04/21/22 Principal diagnosis: Pneumonia and bacteremia Patient is a 76-year-old male with a past medical history significant for tonsillopharyngeal cancer status post chemoradiation patient did have PEG tube for feeding he also history of COPD CVA hypertension hyperlipidemia history of recurrent aspiration pneumonia patient presented to hospital last night for evaluation of increasing shortness of breath, patient has been diagnosed with a pneumonia now with evidence of gram-negative bacteremia. on today's evaluation that is a 04/21/2022, the patient denies any fever or any chills, the patient is breathing comfortably and is down to 4 L nasal cannula, the patient cough has decreased in intensity and not bringing up sputum, the patient denies any nausea no vomiting no abdominal pain no diarrhea Objective - Vital Signs Vital signs: Vital Signs Temp 98.1 F 04/21/22 10:32 Pulse 100 04/21/22 12:27 Resp 20 04/21/22 10:32 BP 122/70 04/21/22 10:32 Pulse Ox 100 04/21/22 10:32 FiO2 60 04/18/22 14:43 Intake & Output 04/20/22 04/21/22 04/21/22 18:59 06:59 18:59 Intake Total 0 Output Total 800 775 Balance -800 -775 Intake: Oral 0 Output: Urine 800 775 Other: Voiding Method Indwelling Catheter Indwelling Catheter # Bowel Movements 0 - Exam GENERAL DESCRIPTION: An elderly male lying in bed in no distress RESPIRATORY SYSTEM: Unlabored breathing , decreased intensity of breath sounds, no wheeze HEART: S1 S2 regular rate and rhythm , ABDOMEN: Soft , no tenderness EXTREMITIES: No edema feet - Labs CBC & Chem 7: 04/21/22 07:47 04/21/22 07:47 Labs: Abnormal Lab Results - Last 24 Hours (Table) 04/20/22 04/21/22 04/21/22 Range/Units 17:05 00:35 06:12 WBC (3.8-10.6) k/uL RBC (4.30-5.90) m/uL Hgb (13.0-17.5) gm/dL Hct (39.0-53.0) % Neutrophils # (1.3-7.7) k/uL Lymphocytes # (1.0-4.8) k/uL BUN (9-20) mg/dL Glucose (74-99) mg/dL POC Glucose (mg/dL) 143 H 158 H 161 H (70-110) mg/dL 04/21/22 04/21/22 04/21/22 Range/Units 07:47 07:47 11:54 WBC 13.7 H (3.8-10.6) k/uL RBC 3.56 L (4.30-5.90) m/uL Hgb 10.2 L (13.0-17.5) gm/dL Hct 32.7 L (39.0-53.0) % Neutrophils # 12.8 H (1.3-7.7) k/uL Lymphocytes # 0.5 L (1.0-4.8) k/uL BUN 53 H (9-20) mg/dL Glucose 137 H (74-99) mg/dL POC Glucose (mg/dL) 169 H (70-110) mg/dL Microbiology - Last 24 Hours (Table) 04/18/22 00:18 Gram Stain - Final Sputum Sputum Culture - Final Klebsiella pneumoniae Methicillin resist S. aureus 04/17/22 23:30 Blood Culture Gram Stain - Final Blood Blood Culture - Final Haemophilus influenzae 04/17/22 23:44 Blood Culture Gram Stain - Final Blood Blood Culture - Final Haemophilus influenzae Assessment and Plan (1) Aspiration pneumonia Current Visit: Yes Status: Acute Code(s): J69.0 - PNEUMONITIS DUE TO INHALATION OF FOOD AND VOMIT SNOMED Code(s): 008346344 Plan: 1patient presented to hospital with sepsis and respiratory have fever elevated white count hypoxemia predominantly respiratory symptoms concerning likely for pneumonia questionable aspiration etiology. 2blood cultures are growing Haemophilus influenzae and sputum culture grew MRSA and ESBL Klebsiella 3patient antibiotic has been switched over to vancomycin and Invanz and will monitor clinical course closely Family at the bedside and multiple questions were answered Time with Patient: Less than 30
[2022-04-21 17:03] LABS: Glucose,Whole Blood 160 mg/dL (70-110)
[2022-04-21] MEDS: ATORVASTATIN 20 MG TAB PEG/G-TUBE SCH (18:15)
[2022-04-21 21:14] LABS: Glucose,Whole Blood 148 mg/dL (70-110)
[2022-04-21] MEDS: MIRTAZAPINE 15 MG TAB PEG/G-TUBE SCH (21:37)
[2022-04-21 23:34] LABS: Glucose,Whole Blood 180 mg/dL (70-110)
[2022-04-21] MEDS: VANCOMYCIN 1,000 MG in SODIUM CHLORIDE 0.9% 250 ML IVPB SCH (23:44)
[2022-04-22 06:10] LABS: Glucose,Whole Blood 160 mg/dL (70-110)
[2022-04-22] MEDS: INSULIN ASPART (NovoLOG) 100 UNIT/ML VIAL SQ SCH ×4 (06:20→23:38)
[2022-04-22] MEDS: methylPREDNISolone SOD SUCCI 125 MG/2 ML VIAL IV SCH ×2 (06:21→13:04)
[2022-04-22] MEDS: IPRATROPIUM-ALBUTEROL 3 ML NEB INHALATION SCH ×4 (08:41→20:07)
[2022-04-22] MEDS: BUDESONIDE 1 MG/2 ML NEBU INHALATION SCH ×2 (08:41→20:06)
[2022-04-22] MEDS: FORMOTEROL FUMARATE 20 MCG/2 ML NEBU INHALATION SCH ×2 (08:41→20:06)
[2022-04-22] MEDS: LEVOTHYROXINE 75 MCG TAB PEG/G-TUBE SCH (09:36)
[2022-04-22] MEDS: FAMOTIDINE 20 MG/2 ML VIAL IV SCH (09:36)
[2022-04-22] MEDS: ASPIRIN 81 MG PEG/G-TUBE SCH (09:36)
[2022-04-22] MEDS: ERTAPENEM 1 GM in SODIUM CHLORIDE 0.9% 50 ML IVPB SCH (09:37)
[2022-04-22] MEDS: HEPARIN SODIUM,PORCINE/PF 5,000 UNIT/0.5 ML SYRINGE SQ SCH ×2 (09:37→20:40)
[2022-04-22 10:17] LABS: Basophils % (A) 0 %; Eosinophils % (A) 0 %; HCT 33.4 % (39.0-53.0); HGB 10.5 gm/dL (13.0-17.5); Hypochromasia Slight; Lymphocytes # (A) 0.5 k/uL (1.0-4.8); Lymphocytes % (A) 5 %; MCH 28.5 pg (25.0-35.0); MCHC 31.4 g/dL (31.0-37.0); MCV 90.9 fL (80.0-100.0); Mean Platelet Volume 7.4; Monocytes # (A) 0.3 k/uL (0-1.0); Monocytes % (A) 3 %; Neutrophils # (A) 10.8 k/uL (1.3-7.7); Neutrophils % (A) 92 %; Platelet Count 266 k/uL (150-450); RBC 3.68 m/uL (4.30-5.90); RDW 15.5 % (11.5-15.5); WBC 11.9 k/uL (3.8-10.6)
[2022-04-22 10:42] LABS: African American GFR (CKD) >90 (>60 ml/min/1.73 sqM); Anion Gap 12 mmol/L; Blood Urea Nitrogen 51 mg/dL (9-20); Calcium 9.2 mg/dL (8.4-10.2); Carbon Dioxide 33 mmol/L (22-30); Chloride 96 mmol/L (98-107); Glucose 131 mg/dL (74-99); Magnesium 1.7 mg/dL (1.6-2.3); Non-African American GFR(CKD) 84 (>60 ml/min/1.73 sqM); Potassium 3.9 mmol/L (3.5-5.1); Sodium 141 mmol/L (137-145)
[2022-04-22 11:10] LABS: C Reactive Protein 4.3 mg/dL (<1.0)
--- NOTE | 2022-04-22 12:00 | P.PN ---
Subjective Progress Note Date: 04/22/22 76-year-old male well-known to me. He presented to the emergency room on April 17, at 11 PM, complaining of increasing shortness of breath. He was brought in by EMS. He apparently was so short of breath, he could not really give much of a history. I see him in the emergency room this morning, and trauma room 4. He is currently on BiPAP. He is on BiPAP settings of 14/5 and 60% FiO2. I confirm the fact that the patient is a DO NOT RESUSCITATE/DO NOT INTUBATE patient. He is also getting saline bolus. Saturations are 97%. He has a history of coronary disease, tonsillar/pharyngeal cancer, surgery and chemoradiation, COPD, CVA, GERD, hyperlipidemia, hypertension, ammonia, among other things. He did have a four-vessel bypass back in 2016, as well as a radical neck dissection for his energy oh cancer, and 2006. He is a former smoker. White count 14.6, hemoglobin 11.6, hematocrit 36.6, and platelet count 420,000 sodium 136, potassium 4.4, chlorides 94, CO2 29, BUN 39, creatinine 1.33. Troponins are 0.079, 0.133 and 0.264. Chest x-ray shows some patchy diffuse interstitial changes, which could relate to interstitial edema or interstitial pneumonia, more right-sided than left-sided. On 04/19/2022 patient seen in follow-up on selective care unit. Patient looks better today, breathing easier, lung sounds reveal some mild scattered wheezes, currently patient is on 10 L of oxygen satting 94%, afebrile, blood pressure is been stable. Patient remains nothing by mouth, he is awaiting a registered dietitian evaluation to restart his tube feedings per the PEG tube. Patient continues on nebulized bronchodilators, IV steroids and Zosyn for antibiotic coverage. His blood and sputum cultures have been sent, sputum culture is pending, preliminary Gram stain showing rare PMNs, rare epithelial cells, many gram-positive cocci and many gram-negative bacilli. Blood cultures are ne gative. Denies any hemoptysis, he is bringing up some green colored phlegm. But overall feels improved. Progress note dated 04/20/2022. The patient appears to be doing much better today. He sitting upright in a chair. He is getting tube feeds at 50 mL an hour. The patient's getting saline at 20 mL an hour. He is on 6 L of oxygen. Today, we will order him a flutter valve. He still has chest congestion when he coughs. He is coughing up yellow/brown phlegm. He does feel better though. White count 17.2, hemoglobin 9.6, hematocrit 30.3, white count 372,000. Sodium 139, potassium 3.9, chlorides 100, CO2 29, BUN 49, and creatinine 1.03. Sputum from April 18 shows gram- negative bacilli and presumptive staph aureus. Blood cultures from April 17 show Haemophilus influenzae. He is currently on Zosyn, although, infectious diseases, is on the case. The patient is seen today 04/21/2022 in follow-up on the cardiac floor. He is currently sitting up in the bedside. Awake and alert in no acute distress. He is on 4 L nasal cannula and maintaining O2 saturations in the 90s. He is receiving tube feedings at 50 MLS per hour. He is breathing a bit easier today. His sputum culture did test positive for MRSA and Klebsiella pneumoniae. Blood cultures are positive for Haemophilus influenza. White count 13.7. Hemoglobin 10.2. Sodium 140. Potassium 3.8. Chloride 90. Bicarb 30. BUN 53. Creatinine 0.99. He is currently on Zosyn. The patient is seen today 04/22/2022 follow-up on the cardiac floor. He is awake and alert in no acute distress. Sitting up in a chair at the bedside. Maintaining good O2 saturations in the mid 90s on 4 L/m per nasal cannula. He's been afebrile. Hemodynamically stable. Sputum culture was positive for Klebsiella pneumoniae and MRSA. Blood culture was positive for Haemophilus influenza. He remains on vancomycin and ertapenem. Continued on bronchodilators and IV Solu-Medrol. Heparin for DVT prophylaxis. Objective - Vital Signs Vital signs: Vital Signs Temp 98.0 F 04/22/22 08:00 Pulse 103 H 04/22/22 11:44 Resp 18 04/22/22 08:52 BP 142/75 04/22/22 08:00 Pulse Ox 97 04/22/22 08:41 FiO2 60 04/18/22 14:43 Intake & Output 04/21/22 04/22/22 04/22/22 18:59 06:59 18:59 Intake Total 720 Output Total 500 Balance 220 Weight 60.5 kg Intake: IV 80 .9 10 mL 80 Intake, IV Titration 310 Amount Ertapenem 1 gm In Sodium 60 Chloride 0.9% 50 ml @ 100 mls/hr IVPB DAILY [facility] Rx #:[id number] Vancomycin 1,250 mg In 250 Sodium Chloride 0.9% 250 ml @ 125 mls/hr IVPB ONCE ONE Rx#:[id number] Tube Feeding 330 Output: Urine 500 Other: Voiding Method Indwelling Catheter Indwelling Catheter Indwelling Catheter # Bowel Movements 1 - Exam GENERAL EXAM: Alert, very pleasant 76-year-old gentleman on 4 L nasal cannula, up in a chair at the bedside, comfortable in no apparent distress. HEAD: Normocephalic. EYES: Normal reaction of pupils, equal size. NOSE: Clear with pink turbinates. THROAT: No erythema or exudates. NECK: No masses, no JVD. CHEST: No chest wall deformity. LUNGS: Equal air entry with bilateral rhonchi. CVS: S1 and S2 normal with no audible murmur, regular rhythm. ABDOMEN: No hepatosplenomegaly, normal bowel sounds, no guarding or rigidity. SPINE: No scoliosis or deformity SKIN: No rashes CENTRAL NERVOUS SYSTEM: No focal deficits, tone is normal in all 4 extremities. EXTREMITIES: There is no peripheral edema. No clubbing, no cyanosis. Peripheral pulses are intact. - Labs CBC & Chem 7: 04/22/22 09:05 04/22/22 09:05 Labs: Abnormal Lab Results - Last 24 Hours (Table) 04/21/22 04/21/22 04/21/22 Range/Units 11:54 16:47 21:12 WBC (3.8-10.6) k/uL RBC (4.30-5.90) m/uL Hgb (13.0-17.5) gm/dL Hct (39.0-53.0) % Neutrophils # (1.3-7.7) k/uL Lymphocytes # (1.0-4.8) k/uL Chloride (98-107) mmol/L Carbon Dioxide (22-30) mmol/L BUN (9-20) mg/dL Glucose (74-99) mg/dL POC Glucose (mg/dL) 169 H 160 H 148 H (70-110) mg/dL C-Reactive Protein (<1.0) mg/dL 04/21/22 04/22/22 04/22/22 Range/Units 23:32 06:08 09:05 WBC 11.9 H (3.8-10.6) k/uL RBC 3.68 L (4.30-5.90) m/uL Hgb 10.5 L (13.0-17.5) gm/dL Hct 33.4 L (39.0-53.0) % Neutrophils # 10.8 H (1.3-7.7) k/uL Lymphocytes # 0.5 L (1.0-4.8) k/uL Chloride (98-107) mmol/L Carbon Dioxide (22-30) mmol/L BUN (9-20) mg/dL Glucose (74-99) mg/dL POC Glucose (mg/dL) 180 H 160 H (70-110) mg/dL C-Reactive Protein (<1.0) mg/dL 04/22/22 Range/Units 09:05 WBC (3.8-10.6) k/uL RBC (4.30-5.90) m/uL Hgb (13.0-17.5) gm/dL Hct (39.0-53.0) % Neutrophils # (1.3-7.7) k/uL Lymphocytes # (1.0-4.8) k/uL Chloride 96 L (98-107) mmol/L Carbon Dioxide 33 H (22-30) mmol/L BUN 51 H (9-20) mg/dL Glucose 131 H (74-99) mg/dL POC Glucose (mg/dL) (70-110) mg/dL C-Reactive Protein 4.3 H (<1.0) mg/dL Microbiology - Last 24 Hours (Table) 04/18/22 00:18 Gram Stain - Final Sputum Sputum Culture - Final Klebsiella pneumoniae Methicillin resist S. aureus 04/17/22 23:30 Blood Culture Gram Stain - Final Blood Blood Culture - Final Haemophilus influenzae Assessment and Plan Assessment: Acute hypoxemic respiratory failure, which may relate interstitial edema and/or interstitial pneumonia. Bacterial pneumonia, secondary to MRSA and Klebsiella pneumoniae. Bacteremia secondary to Haemophilus influenzae. History of CAD, previous bypass grafting, 2017. Status post radical neck dissection for pharyngeal/tonsillar cancer, 2005, with subsequent chemoradiation. History of CVA. History of hypertension. History of hyperlipidemia. History of pneumonia. Hypothyroidism. Gastroesophageal reflux disease. Stage II chronic kidney disease. Multiple other medical problems and comorbidities. Plan: The patient was seen and evaluated Medications, labs reviewed Continued on vancomycin and ertapenem We'll continue the current treatment plan Titrate the FiO2 as tolerated Follow-up chest x-ray in the a.m. We will continue to follow I have personally seen and examined the patient, performed the documentation and the assessment and plan as written. Number of minutes spent on the visit: 10.
[2022-04-22 12:23] LABS: Glucose,Whole Blood 169 mg/dL (70-110)
[2022-04-22] MEDS: VANCOMYCIN 1,000 MG in SODIUM CHLORIDE 0.9% 250 ML IVPB SCH ×2 (13:05→23:38)
[2022-04-22] MEDS ORDERED: Magnesium Replacement Protocol 1 EACH MISC MISCELLANE PRN (15:48)
--- NOTE | 2022-04-22 15:48 | P.PN ---
Subjective Progress Note Date: 04/22/22 This is a pleasant 76 year male who presents with progressive dyspnea with cough and sputum production. Sputum culture was found to be positive for MRSA with ESBL, Blood culture positive for haemophilius influenzae and antibiotics were adjusted to IV vancomycin and IV Invanz. Today patient reports a decrease in sputum production. His wheezing has also improved. 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 Patient is wondering about resuming pleasure feeds, conversation had at bedside with family and patient about the risk for aspiration and wound recommend to continue with NPO status. He was also started on Remeron back in July for an appetite stimulant which has been currently placed on hold patient does report trouble sleeping. Patient will resume Remeron at a lower dose at bedtime. Magnesium today 1.7. Review of Systems Constitutional: Denied any fatigue denied any fever. Cardio vascular: denied any chest pain, palpitations Gastrointestinal: denied any nausea, vomiting, diarrhea Pulmonary: Denied any shortness of breath cough Neurologic denied any new focal deficits All inpatient medications were reviewed and appropriate changes in these medications as dictated in the interval history and assessment and plan. PHYSICAL EXAMINATION: GENERAL: The patient is alert and oriented x3, not in any acute distress. Well developed, well nourished. HEENT: Pupils are round and equally reacting to light. EOMI. No scleral icterus. No conjunctival pallor. Normocephalic, atraumatic. No pharyngeal erythema. No thyromegaly. CARDIOVASCULAR: S1 and S2 present. No murmurs, rubs, or gallops. PULMONARY: Scattered rhonchi, coarse congested cough. ABDOMEN: Soft, nontender, nondistended, normoactive bowel sounds. No palpable organomegaly. MUSCULOSKELETAL: No joint swelling or deformity. EXTREMITIES: No cyanosis, clubbing, or pedal edema. NEUROLOGICAL: Gross neurological examination did not reveal any focal deficits. SKIN: No rashes. Sacrum is nonblanchable and reddened, no open areas. PEG tube site in tact. Assessment and plan Assessment Acute on chronic hypoxemic respiratory failure secondary to bacterial pneumonia with Klebsiella ESBL/MRSA and continues on IV antibiotics Haemophilius Influenzae Bacteremia Elevated troponin Hypertension Hyperlipidemia History of pharyngeal cancer status post radical neck dissection with chronic dysphagia and PEG tube placement History of GERD History of coronary artery disease status post CABG Chronic kidney disease stage 2 Stage 1 sacral pressure injury GI Prophylaxis DVT Prophylaxis Do Not Resuscitate Plan Continue with IV Vancomycin/Invanz Continue bronchodilators, IV steroids Continue with PEG tube feedings/Patient is NPO Pulmonary/Cardiology consultation Infectious disease following Optifoam and barrier paste to sacrum, pressure reduction turn Q2 discussed with patient and family, donut cushion ordered as well. Replace magnesium. The impression and plan of care has been dictated by Yajaira Cox, Nurse Practitioner as directed. Dr. Sandra MD I have performed a history and physical examination and medical decision making of this patient, discussed the same with the dictator, and agree with the dictators assessment and plan as written, documented as a scribe. Based on total visit time, I have performed more than 50% of this visit. Objective - Vital Signs Vital signs: Vital Signs Temp 98.0 F 04/22/22 08:00 Pulse 107 H 04/22/22 12:00 Resp 18 04/22/22 14:00 BP 189/104 04/22/22 12:00 Pulse Ox 98 04/22/22 12:00 FiO2 60 04/18/22 14:43 Intake & Output 04/21/22 04/22/22 04/22/22 18:59 06:59 18:59 Intake Total 720 Output Total 500 400 Balance 220 -400 Weight 60.5 kg Intake: IV 80 .9 10 mL 80 Intake, IV Titration 310 Amount Ertapenem 1 gm In Sodium 60 Chloride 0.9% 50 ml @ 100 mls/hr IVPB DAILY [facility] Rx #:[id number] Vancomycin 1,250 mg In 250 Sodium Chloride 0.9% 250 ml @ 125 mls/hr IVPB ONCE ONE Rx#:[id number] Tube Feeding 330 Output: Urine 500 400 Other: Voiding Method Indwelling Catheter Indwelling Catheter Indwelling Catheter # Bowel Movements 1 1 - Labs CBC & Chem 7: 04/22/22 09:05 04/22/22 09:05 Labs: Abnormal Lab Results - Last 24 Hours (Table) 04/21/22 04/21/22 04/21/22 Range/Units 16:47 21:12 23:32 WBC (3.8-10.6) k/uL RBC (4.30-5.90) m/uL Hgb (13.0-17.5) gm/dL Hct (39.0-53.0) % Neutrophils # (1.3-7.7) k/uL Lymphocytes # (1.0-4.8) k/uL Chloride (98-107) mmol/L Carbon Dioxide (22-30) mmol/L BUN (9-20) mg/dL Glucose (74-99) mg/dL POC Glucose (mg/dL) 160 H 148 H 180 H (70-110) mg/dL C-Reactive Protein (<1.0) mg/dL 04/22/22 04/22/22 04/22/22 Range/Units 06:08 09:05 09:05 WBC 11.9 H (3.8-10.6) k/uL RBC 3.68 L (4.30-5.90) m/uL Hgb 10.5 L (13.0-17.5) gm/dL Hct 33.4 L (39.0-53.0) % Neutrophils # 10.8 H (1.3-7.7) k/uL Lymphocytes # 0.5 L (1.0-4.8) k/uL Chloride 96 L (98-107) mmol/L Carbon Dioxide 33 H (22-30) mmol/L BUN 51 H (9-20) mg/dL Glucose 131 H (74-99) mg/dL POC Glucose (mg/dL) 160 H (70-110) mg/dL C-Reactive Protein 4.3 H (<1.0) mg/dL 04/22/22 Range/Units 11:57 WBC (3.8-10.6) k/uL RBC (4.30-5.90) m/uL Hgb (13.0-17.5) gm/dL Hct (39.0-53.0) % Neutrophils # (1.3-7.7) k/uL Lymphocytes # (1.0-4.8) k/uL Chloride (98-107) mmol/L Carbon Dioxide (22-30) mmol/L BUN (9-20) mg/dL Glucose (74-99) mg/dL POC Glucose (mg/dL) 169 H (70-110) mg/dL C-Reactive Protein (<1.0) mg/dL Microbiology - Last 24 Hours (Table) 04/21/22 13:10 Blood Culture - Preliminary Blood No Growth after 24 hours 04/18/22 00:18 Gram Stain - Final Sputum Sputum Culture - Final Klebsiella pneumoniae Methicillin resist S. aureus Assessment and Plan Time with Patient: Less than 30
[2022-04-22] MEDS: ATORVASTATIN 20 MG TAB PEG/G-TUBE SCH (16:39)
[2022-04-22] MEDS: MAGNESIUM SULFATE-D5W PMX 1 GM in DEXTROSE/WATER 1 100ML.BAG IVPB SCH ×2 (16:40→17:46)
[2022-04-22] MEDS: methylPREDNISolone SOD SUCCI 40 MG/ML 1 ML VIAL IV SCH ×2 (16:40→23:38)
[2022-04-22 17:21] LABS: Glucose,Whole Blood 179 mg/dL (70-110)
[2022-04-22] MEDS: MIRTAZAPINE 15 MG TAB PEG/G-TUBE SCH (20:40)
[2022-04-22 21:22] LABS: Glucose,Whole Blood 117 mg/dL (70-110)
--- NOTE | 2022-04-22 23:14 | P.PN ---
Subjective Progress Note Date: 04/22/22 Principal diagnosis: Pneumonia and bacteremia Patient is a 76-year-old male with a past medical history significant for tonsillopharyngeal cancer status post chemoradiation patient did have PEG tube for feeding he also history of COPD CVA hypertension hyperlipidemia history of recurrent aspiration pneumonia patient presented to hospital last night for evaluation of increasing shortness of breath, patient has been diagnosed with a pneumonia now with evidence of gram-negative bacteremia. on today's evaluation that is a 04/22/2022, the patient remains to be afebrile, the patient is breathing comfortably and is down to 3 L nasal cannula, the patient cough has decreased in intensity and less for negative, patient denies having any nausea no vomiting no abdominal pain or diarrhea Objective - Vital Signs Vital signs: Vital Signs Temp 98.0 F 04/22/22 08:00 Pulse 107 H 04/22/22 12:00 Resp 18 04/22/22 14:00 BP 189/104 04/22/22 12:00 Pulse Ox 98 04/22/22 12:00 FiO2 60 04/18/22 14:43 Intake & Output 04/21/22 04/22/22 04/22/22 18:59 06:59 18:59 Intake Total 720 Output Total 500 400 Balance 220 -400 Weight 60.5 kg Intake: IV 80 .9 10 mL 80 Intake, IV Titration 310 Amount Ertapenem 1 gm In Sodium 60 Chloride 0.9% 50 ml @ 100 mls/hr IVPB DAILY [facility] Rx #:[id number] Vancomycin 1,250 mg In 250 Sodium Chloride 0.9% 250 ml @ 125 mls/hr IVPB ONCE ONE Rx#:[id number] Tube Feeding 330 Output: Urine 500 400 Other: Voiding Method Indwelling Catheter Indwelling Catheter Indwelling Catheter # Bowel Movements 1 1 - Exam GENERAL DESCRIPTION: An elderly male lying in bed in no distress RESPIRATORY SYSTEM: Unlabored breathing , decreased intensity of breath sounds, no wheeze HEART: S1 S2 regular rate and rhythm , ABDOMEN: Soft , no tenderness EXTREMITIES: No edema feet - Labs CBC & Chem 7: 04/22/22 09:05 04/22/22 09:05 Labs: Abnormal Lab Results - Last 24 Hours (Table) 04/21/22 04/21/22 04/21/22 Range/Units 16:47 21:12 23:32 WBC (3.8-10.6) k/uL RBC (4.30-5.90) m/uL Hgb (13.0-17.5) gm/dL Hct (39.0-53.0) % Neutrophils # (1.3-7.7) k/uL Lymphocytes # (1.0-4.8) k/uL Chloride (98-107) mmol/L Carbon Dioxide (22-30) mmol/L BUN (9-20) mg/dL Glucose (74-99) mg/dL POC Glucose (mg/dL) 160 H 148 H 180 H (70-110) mg/dL C-Reactive Protein (<1.0) mg/dL 04/22/22 04/22/22 04/22/22 Range/Units 06:08 09:05 09:05 WBC 11.9 H (3.8-10.6) k/uL RBC 3.68 L (4.30-5.90) m/uL Hgb 10.5 L (13.0-17.5) gm/dL Hct 33.4 L (39.0-53.0) % Neutrophils # 10.8 H (1.3-7.7) k/uL Lymphocytes # 0.5 L (1.0-4.8) k/uL Chloride 96 L (98-107) mmol/L Carbon Dioxide 33 H (22-30) mmol/L BUN 51 H (9-20) mg/dL Glucose 131 H (74-99) mg/dL POC Glucose (mg/dL) 160 H (70-110) mg/dL C-Reactive Protein 4.3 H (<1.0) mg/dL 04/22/22 Range/Units 11:57 WBC (3.8-10.6) k/uL RBC (4.30-5.90) m/uL Hgb (13.0-17.5) gm/dL Hct (39.0-53.0) % Neutrophils # (1.3-7.7) k/uL Lymphocytes # (1.0-4.8) k/uL Chloride (98-107) mmol/L Carbon Dioxide (22-30) mmol/L BUN (9-20) mg/dL Glucose (74-99) mg/dL POC Glucose (mg/dL) 169 H (70-110) mg/dL C-Reactive Protein (<1.0) mg/dL Microbiology - Last 24 Hours (Table) 04/21/22 13:10 Blood Culture - Preliminary Blood No Growth after 24 hours 04/18/22 00:18 Gram Stain - Final Sputum Sputum Culture - Final Klebsiella pneumoniae Methicillin resist S. aureus Assessment and Plan (1) Aspiration pneumonia Current Visit: Yes Status: Acute Code(s): J69.0 - PNEUMONITIS DUE TO INHALATION OF FOOD AND VOMIT SNOMED Code(s): 207608743 Plan: 1patient presented to hospital with sepsis and respiratory have fever elevated white count hypoxemia predominantly respiratory symptoms concerning likely for pneumonia questionable aspiration etiology. 2blood cultures are growing Haemophilus influenzae and sputum culture grew MRSA and ESBL Klebsiella 3patient continue with vancomycin and Invanz and plan will be for total of 2 weeks of antibiotic therapy Time with Patient: Less than 30
[2022-04-22 23:34] LABS: Glucose,Whole Blood 122 mg/dL (70-110)
[2022-04-23 06:29] LABS: Glucose,Whole Blood 142 mg/dL (70-110)
[2022-04-23] MEDS: INSULIN ASPART (NovoLOG) 100 UNIT/ML VIAL SQ SCH ×3 (06:34→17:07)
--- NOTE | 2022-04-23 07:35 | XR ---
EXAMINATION TYPE: XR chest 1V portable DATE OF EXAM: 04/23/2022 6:39 AM COMPARISON: Chest radiographs from 04/17/2022 TECHNIQUE: XR chest 1V portable Frontal view of the chest. CLINICAL INDICATION:Male, 76 years old with history of Pneumonia; FINDINGS: Lungs/Pleura: Leftward shift of the mediastinum from left lower lobe atelectasis with volume loss. No evidence of pleural effusion or pneumothorax. No additional focal consolidation. There is no evidence of pleural effusion, focal consolidation, or pneumothorax. Pulmonary vascularity: Unremarkable. Heart/mediastinum: Cardiomediastinal silhouette is unremarkable. Musculoskeletal: No acute osseous pathology. IMPRESSION: 1. No acute cardiopulmonary disease/process. 2. Stable left lower lobe atelectasis with volume loss.
[2022-04-23] MEDS: FORMOTEROL FUMARATE 20 MCG/2 ML NEBU INHALATION SCH ×2 (08:19→19:47)
[2022-04-23] MEDS: BUDESONIDE 1 MG/2 ML NEBU INHALATION SCH ×2 (08:19→19:47)
[2022-04-23] MEDS: IPRATROPIUM-ALBUTEROL 3 ML NEB INHALATION SCH ×4 (08:19→19:47)
[2022-04-23] MEDS: ERTAPENEM 1 GM in SODIUM CHLORIDE 0.9% 50 ML IVPB SCH (09:24)
[2022-04-23] MEDS: LOSARTAN 25 MG TAB PO SCH (09:26)
[2022-04-23] MEDS: FAMOTIDINE 20 MG/2 ML VIAL IV SCH (09:26)
[2022-04-23] MEDS: LEVOTHYROXINE 75 MCG TAB PEG/G-TUBE SCH (09:26)
[2022-04-23] MEDS: ASPIRIN 81 MG PEG/G-TUBE SCH (09:26)
[2022-04-23] MEDS: methylPREDNISolone SOD SUCCI 40 MG/ML 1 ML VIAL IV SCH ×2 (09:26→17:18)
[2022-04-23] MEDS: HEPARIN SODIUM,PORCINE/PF 5,000 UNIT/0.5 ML SYRINGE SQ SCH ×2 (09:27→20:33)
[2022-04-23] MEDS ORDERED: VANCOMYCIN TROUGH DUE 1 EACH MISC MISCELLANE ONE (11:00)
--- NOTE | 2022-04-23 11:30 | P.PN ---
Subjective Progress Note Date: 04/23/22 Principal diagnosis: Chest congestion and shortness of breath. 76-year-old male well-known to me. He presented to the emergency room on April 17, at 11 PM, complaining of increasing shortness of breath. He was brought in by EMS. He apparently was so short of breath, he could not really give much of a history. I see him in the emergency room this morning, and trauma room 4. He is currently on BiPAP. He is on BiPAP settings of 14/5 and 60% FiO2. I confirm the fact that the patient is a DO NOT RESUSCITATE/DO NOT INTUBATE patient. He is also getting saline bolus. Saturations are 97%. He has a history of coronary disease, tonsillar/pharyngeal cancer, surgery and chemoradiation, COPD, CVA, GERD, hyperlipidemia, hypertension, ammonia, among other things. He did sow ve a four-vessel bypass back in 2016, as well as a radical neck dissection for his energy [place] cancer, and 2006. He is a former smoker. White count 14.6, hemoglobin 11.6, hematocrit 36.6, and platelet count 420,000 sodium 136, potassium 4.4, chlorides 94, CO2 29, BUN 39, creatinine 1.33. Troponins are 0.079, 0.133 and 0.264. Chest x-ray shows some patchy diffuse interstitial changes, which could relate to interstitial edema or interstitial pneumonia, more right-sided than left-sided. On 04/19/2022 patient seen in follow-up on selective care unit. Patient looks better today, breathing easier, lung sounds reveal some mild scattered wheezes, currently patient is on 10 L of oxygen satting 94%, afebrile, blood pressure is been stable. Patient remains nothing by mouth, he is awaiting a registered dietitian evaluation to restart his tube feedings per the PEG tube. Patient continues on nebulized bronchodilators, IV steroids and Zosyn for antibiotic coverage. His blood and sputum cultures have been sent, sputum culture is pending, preliminary Gram stain showing rare PMNs, rare epithelial cells, many gram-positive cocci and many gram-negative bacilli. Blood cultures are negative. Denies any hemoptysis, he is bringing up some green colored phlegm. But overall feels improved. Progress note dated 04/20/2022. The patient appears to be doing much better today. He sitting upright in a chair. He is getting tube feeds at 50 mL an hour. The patient's getting saline at 20 mL an hour. He is on 6 L of oxygen. Today, we will order him a flutter valve. He still has chest congestion when he coughs. He is coughing up yellow/brown phlegm. He does feel better though. White count 17.2, hemoglobin 9.6, hematocrit 30.3, white count 372,000. Sodium 139, potassium 3.9, chlorides 100, CO2 29, BUN 49, and creatinine 1.03. Sputum from April 18 shows gram- negative bacilli and presumptive staph aureus. Blood cultures from April 17 show Haemophilus influenzae. He is currently on Zosyn, although, infectious diseases, is on the case. The patient is seen today 04/21/2022 in follow-up on the cardiac floor. He is currently sitting up in the bedside. Awake and alert in no acute distress. He is on 4 L nasal cannula and maintaining O2 saturations in the 90s. He is receiving tube feedings at 50 MLS per hour. He is breathing a bit easier today. His sputum culture did test positive for MRSA and Klebsiella pneumoniae. Blood cultures are positive for Haemophilus influenza. White count 13.7. Hemoglobin 10.2. Sodium 140. Potassium 3.8. Chloride 90. Bicarb 30. BUN 53. Creatinine 0.99. He is currently on Zosyn. The patient is seen today 04/22/2022 follow-up on the cardiac floor. He is awake and alert in no acute distress. Sitting up in a chair at the bedside. Maintaining good O2 saturations in the mid 90s on 4 L/m per nasal cannula. He's been afebrile. Hemodynamically stable. Sputum culture was positive for Klebsiella pneumoniae and MRSA. Blood culture was positive for Haemophilus influenza. He remains on vancomycin and ertapenem. Continued on b ronchodilators and IV Solu-Medrol. Heparin for DVT prophylaxis. Progress note dated 04/23/2022. 76-year-old male, seen in room 379. The patient is sitting in the chair next to his bed. He is currently on 3 L nasal cannula. He is getting saline at 10 mL an hour, and tube feedings at 55 mL an hour the patient is currently on vancomycin, and ertapenem. He is being treated for blood cultures positive for Haemophilus, and sputum cultures positive for both Klebsiella pneumoniae and methicillin-resistant staph aureus. The patient is hoping to have a PICC line placed, so that he can receive outpatient antibiotics. No new labs today. Objective - Vital Signs Vital signs: Vital Signs Temp 97.0 F L 04/23/22 08:00 Pulse 94 04/23/22 08:51 Resp 16 04/23/22 08:00 BP 113/70 04/23/22 08:00 Pulse Ox 94 L 04/23/22 08:19 FiO2 60 04/18/22 14:43 Intake & Output 04/22/22 04/23/22 04/23/22 18:59 06:59 18:59 Intake Total 250 Output Total 600 250 300 Balance -600 0 -300 Intake: IV 250 .9 10 mL 250 Output: Urine 600 250 300 Other: Voiding Method Indwelling Catheter Indwelling Catheter # Bowel Movements 1 - Exam No acute distress, oriented 3. Currently on 3 L nasal cannula. HEENT examination is grossly unremarkable. Neck supple. Full range of motion. No adenopathy thyromegaly or neck vein distention. Scarring, from previous surgery and radiation is noted. Cardiovascular examination reveals regular rhythm rate. S1-S2 normal. No S3 or S4. No discernible murmur noted. Heart sounds are distant. Heart rate 94 bpm. Lungs reveal improved bilateral breath sounds. Scattered rhonchi are noted. No wheezes or crackles. Breath sounds equal bilaterally. Saturations are 94% on 3 L. Abdomen soft bowel sounds are heard. No masses or tenderness. PEG tube is noted. Extremities are intact. No cyanosis clubbing or edema. Skin is without rash or lesion. Neurologic examination is brief but nonfocal. - Labs CBC & Chem 7: 04/22/22 09:05 04/22/22 09:05 Labs: Abnormal Lab Results - Last 24 Hours (Table) 04/22/22 04/22/22 04/22/22 Range/Units 09:05 11:57 17:08 POC Glucose (mg/dL) 169 H 179 H (70-110) mg/dL Procalcitonin 2.57 H (0.02-0.09) ng/mL 04/22/22 04/22/22 04/23/22 Range/Units 21:21 23:33 06:28 POC Glucose (mg/dL) 117 H 122 H 142 H (70-110) mg/dL Procalcitonin (0.02-0.09) ng/mL Microbiology - Last 24 Hours (Table) 04/21/22 13:10 Blood Culture - Preliminary Blood No Growth after 24 hours Assessment and Plan Assessment: Acute hypoxemic respiratory failure, which may relate interstitial edema and/or interstitial pneumonia. Bacterial pneumonia, secondary to Klebsiella pneumoniae as well as methicillin-resistant staph aureus. Bacteremia secondary to Haemophilus influenzae. History of CAD, previous bypass grafting, 2017. Status post radical neck dissection for pharyngeal/tonsillar cancer, 2005, with subsequent chemoradiation. History of CVA. History of hypertension. History of hyperlipidemia. History of pneumonia. Hypothyroidism. Gastroesophageal reflux disease. Stage II chronic kidney disease. Multiple other medical problems and comorbidities. Plan: Plan dated 04/18/2022. The patient is seen in the emergency room, trauma room 4. The patient is evaluated and examined. Labs, x-rays, and medications are reviewed. The patient's overall prognosis is very poor. He is a DO NOT RESUSCITATE/DO NOT INTUBATE patient. I confirm that with the patient today. The patient remains on BiPAP therapy. He is getting a fluid bolus. He should be treated with breathing treatments, antibiotics, etc. We will continue to follow. Plan dated 04/20/2022. The patient appears to be doing better. He is on 6 L. We will order him a flutter valve. Culture data is reviewed. He remains on Zosyn. Infectious diseases is on the case. They may decide to adjust antibiotics. The patient is a DO NOT RESUSCITATE/DO NOT INTUBATE patient. Labs, x-rays, and medications are reviewed. Prognosis is certainly guarded. Plan dated 04/23/2022. The patient remains on 3 L of oxygen. He is getting saline at 10 mL an hour, and his tube feedings at 55 mL an hour. In addition, the patient is receiving vancomycin and ertapenem. He is hoping to have a PICC line placed, so that he can have outpatient antibiotics at home. The patient's overall prognosis is guarded. We will see him in the office after discharge. Labs, x-rays, and medications are all reviewed. The patient is a DO NOT RESUSCITATE/DO NOT INTUBATE patient. We confirmed that with him earlier during this hospital stay. Time with Patient: Less than 30
[2022-04-23 11:38] LABS: Glucose,Whole Blood 137 mg/dL (70-110)
[2022-04-23] MEDS: VANCOMYCIN 1,000 MG in SODIUM CHLORIDE 0.9% 250 ML IVPB SCH (12:56)
[2022-04-23 13:06] LABS: African American GFR (CKD) >90 (>60 ml/min/1.73 sqM); Anion Gap 10 mmol/L; Blood Urea Nitrogen 60 mg/dL (9-20); Calcium 9.2 mg/dL (8.4-10.2); Carbon Dioxide 34 mmol/L (22-30); Chloride 95 mmol/L (98-107); Glucose 141 mg/dL (74-99); Non-African American GFR(CKD) 83 (>60 ml/min/1.73 sqM); Potassium 3.8 mmol/L (3.5-5.1); Sodium 139 mmol/L (137-145)
--- NOTE | 2022-04-23 14:58 | P.PN ---
Subjective Progress Note Date: 04/23/22 Principal diagnosis: Pneumonia and bacteremia Patient is a 76-year-old male with a past medical history significant for tonsillopharyngeal cancer status post chemoradiation patient did have PEG tube for feeding he also history of COPD CVA hypertension hyperlipidemia history of recurrent aspiration pneumonia patient presented to hospital last night for evaluation of increasing shortness of breath, patient has been diagnosed with a pneumonia now with evidence of gram-negative bacteremia. on today's evaluation that is a 04/23/2022, the patient continues to be afeb rile, the patient is breathing comfortably on 3 L nasal cannula, the patient cough has decreased in intensity and no further purulent sputum, patient denies having any nausea no vomiting no abdominal pain or diarrhea Objective - Vital Signs Vital signs: Vital Signs Temp 97.0 F L 04/23/22 08:00 Pulse 73 04/23/22 12:00 Resp 18 04/23/22 13:59 BP 128/83 04/23/22 12:00 Pulse Ox 98 04/23/22 12:00 FiO2 60 04/18/22 14:43 Intake & Output 04/22/22 04/23/22 04/23/22 18:59 06:59 18:59 Intake Total 250 Output Total 600 250 300 Balance -600 0 -300 Intake: IV 250 .9 10 mL 250 Output: Urine 600 250 300 Other: Voiding Method Indwelling Catheter Indwelling Catheter Indwelling Catheter # Bowel Movements 1 - Exam GENERAL DESCRIPTION: An elderly male lying in bed in no distress RESPIRATORY SYSTEM: Unlabored breathing , decreased intensity of breath sounds, no wheeze HEART: S1 S2 regular rate and rhythm , ABDOMEN: Soft , no tenderness EXTREMITIES: No edema feet - Labs CBC & Chem 7: 04/22/22 09:05 04/23/22 11:58 Labs: Abnormal Lab Results - Last 24 Hours (Table) 04/22/22 04/22/22 04/22/22 Range/Units 09:05 17:08 21:21 Chloride (98-107) mmol/L Carbon Dioxide (22-30) mmol/L BUN (9-20) mg/dL Glucose (74-99) mg/dL POC Glucose (mg/dL) 179 H 117 H (70-110) mg/dL Procalcitonin 2.57 H (0.02-0.09) ng/mL 04/22/22 04/23/2204/23/22 Range/Units 23:33 06:28 11:36 Chloride (98-107) mmol/L Carbon Dioxide (22-30) mmol/L BUN (9-20) mg/dL Glucose (74-99) mg/dL POC Glucose (mg/dL) 122 H 142 H 137 H (70-110) mg/dL Procalcitonin (0.02-0.09) ng/mL 04/23/22 Range/Units 11:58 Chloride 95 L (98-107) mmol/L Carbon Dioxide 34 H (22-30) mmol/L BUN 60 H (9-20) mg/dL Glucose 141 H (74-99) mg/dL POC Glucose (mg/dL) (70-110) mg/dL Procalcitonin (0.02-0.09) ng/mL Microbiology - Last 24 Hours (Table) 04/21/22 13:10 Blood Culture - Preliminary Blood No Growth after 24 hours Assessment and Plan (1) Aspiration pneumonia Current Visit: Yes Status: Acute Code(s): J69.0 - PNEUMONITIS DUE TO INHALATION OF FOOD AND VOMIT SNOMED Code(s): 852532767 Plan: 1patient presented to hospital with sepsis and respiratory have fever elevated white count hypoxemia predominantly respiratory symptoms concerning likely for pneumonia questionable aspiration etiology. 2blood cultures are growing Haemophilus influenzae and sputum culture grew MRSA and ESBL Klebsiella 3patient seemed to have shown clinical improvement and will continue with vancomycin and Invanz and plan will be for total of 2 weeks of antibiotic therapy, PICC line will be ordered Family the bedside and multiple questions concerned were answered Time with Patient: Less than 30
--- NOTE | 2022-04-23 15:43 | P.PN ---
Subjective Progress Note Date: 04/23/22 This is a pleasant 76 year male who presents with progressive dyspnea with cough and sputum production. Sputum culture was found to be positive for MRSA with ESBL, Blood culture positive for haemophilius influenzae and antibiotics were adjusted to IV vancomycin and IV Invanz. Today patient reports a decrease in sputum production. His wheezing has also improved. 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 Patient is wondering about resuming pleasure feeds, conversation had at bedside with family and patient about the risk for aspiration and wound recommend to continue with NPO status. He was also started on Remeron back in July for an appetite stimulant which has been currently placed on hold patient does report trouble sleeping. Patient will resume Remeron at a lower dose at bedtime. Magnesium today 1.7. 04/23/2022 Patient evaluated sitting up in chair with spouse at bedside. States he is breathing easier today, lungs are clear. Continues on 3L nasal cannula which is what he wears at home. Started on losartan today for hypertension, patient did state he took amlodipine in the past. Blood pressure has improved down to 128/83. Repeat blood culture negative so far. Last night patient had issues with his tube feedings, states he had alot of residuals and the tube feed was turned off for a while. Today there is no residual and he is tolerating well. Continues with significant hoarseness to voice, he is strict NPO due to high risk for aspiration. Labs today have improved. Procalcitonin down to 2.57. Patient had repeat chest xray today showing stable left lower lobe atelectasis with left mediastinum shift. Patient is pending PICC line placement for discharge. Review of Systems Constitutional: Denied any fatigue denied any fever. Cardio vascular: denied any chest pain, palpitations Gastrointestinal: denied any nausea, vomiting, diarrhea Pulmonary: Reports some shortness of breath with exertion, dry cough. Neurologic denied any new focal deficits All inpatient medications were reviewed and appropriate changes in these medications as dictated in the interval history and assessment and plan. PHYSICAL EXAMINATION: GENERAL: The patient is alert and oriented x3, not in any acute distress. Well developed, well nourished. HEENT: Pupils are round and equally reacting to light. EOMI. No scleral icterus. No conjunctival pallor. Normocephalic, atraumatic. No pharyngeal erythema. No thyromegaly. CARDIOVASCULAR: S1 and S2 present. No murmurs, rubs, or gallops. PULMONARY: Lungs are clear, diminished bases ABDOMEN: Soft, nontender, nondistended, normoactive bowel sounds. No palpable organomegaly. MUSCULOSKELETAL: No joint swelling or deformity. EXTREMITIES: No cyanosis, clubbing, or pedal edema. NEUROLOGICAL: Gross neurological examination did not reveal any focal deficits. SKIN: No rashes. Sacrum is nonblanchable and reddened, no open areas. PEG tube site in tact. Assessment and plan Assessment Acute on chronic hypoxemic respiratory failure secondary to bacterial pneumonia with Klebsiella ESBL/MRSA and continues on IV antibiotics Haemophilius Influenzae Bacteremia Elevated troponin Hypertension Hyperlipidemia History of pharyngeal cancer status post radical neck dissection with chronic dysphagia and PEG tube placement History of GERD History of coronary artery disease status post CABG Chronic kidney disease stage 2 Stage 1 sacral pressure injury GI Prophylaxis DVT Prophylaxis Do Not Resuscitate Plan Losartan added today continue with blood pressure monitoring. Continue with IV Vancomycin/Invanz Pending PICC line placement Continue bronchodilators, IV steroids Continue with PEG tube feedings/Patient is NPO Pulmonary/Cardiology consultation Infectious disease following Optifoam and barrier paste to sacrum, pressure reduction turn Q2 discussed with patient and family, yadira rubio ordered as well. The impression and plan of care has been dictated by Yajaira Cox Nurse Practitioner as directed. Dr. Sandra MD I have performed a history and physical examination and medical decision making of this patient, discussed the same with the dictator, and agree with the dictators assessment and plan as written, documented as a scribe. Based on total visit time, I have performed more than 50% of this visit. Objective - Vital Signs Vital signs: Vital Signs Temp 97.0 F L 04/23/22 08:00 Pulse 94 04/23/22 15:32 Resp 18 04/23/22 13:59 BP 128/83 04/23/22 12:00 Pulse Ox 98 04/23/22 12:00 FiO2 60 04/18/22 14:43 Intake & Output 04/22/22 04/23/22 04/23/22 18:59 06:59 18:59 Intake Total 250 Output Total 600 250 300 Balance -600 0 -300 Intake: IV 250 .9 10 mL 250 Output: Urine 600 250 300 Other: Voiding Method Indwelling Catheter Indwelling Catheter Indwelling Catheter # Bowel Movements 1 - Labs CBC & Chem 7: 04/22/22 09:05 04/23/22 11:58 Labs: Abnormal Lab Results - Last 24 Hours (Table) 04/22/22 04/22/22 04/22/22 Range/Units 09:05 17:08 21:21 Chloride (98-107) mmol/L Carbon Dioxide (22-30) mmol/L BUN (9-20) mg/dL Glucose (74-99) mg/dL POC Glucose (mg/dL) 179 H 117 H (70-110) mg/dL Procalcitonin 2.57 H (0.02-0.09) ng/mL 04/22/22 04/23/22 04/23/22 Range/Units 23:33 06:28 11:36 Chloride (98-107) mmol/L Carbon Dioxide (22-30) mmol/L BUN (9-20) mg/dL Glucose (74-99) mg/dL POC Glucose (mg/dL) 122 H 142 H 137 H (70-110) mg/dL Procalcitonin (0.02-0.09) ng/mL 04/23/22 Range/Units 11:58 Chloride 95 L (98-107) mmol/L Carbon Dioxide 34 H (22-30) mmol/L BUN 60 H (9-20) mg/dL Glucose 141 H (74-99) mg/dL POC Glucose (mg/dL) (70-110) mg/dL Procalcitonin (0.02-0.09) ng/mL Microbiology - Last 24 Hours (Table) 04/21/22 13:10 Blood Culture - Preliminary Blood No Growth after 48 hours Assessment and Plan Time with Patient: Less than 30
[2022-04-23 16:33] LABS: Glucose,Whole Blood 132 mg/dL (70-110)
[2022-04-23] MEDS: ATORVASTATIN 20 MG TAB PEG/G-TUBE SCH (17:18)
[2022-04-23] MEDS: MIRTAZAPINE 15 MG TAB PEG/G-TUBE SCH (20:33)
[2022-04-23 20:36] LABS: Glucose,Whole Blood 172 mg/dL (70-110)
[2022-04-24 00:04] LABS: Glucose,Whole Blood 123 mg/dL (70-110)
[2022-04-24] MEDS: methylPREDNISolone SOD SUCCI 40 MG/ML 1 ML VIAL IV SCH ×2 (00:08→10:05)
[2022-04-24] MEDS: VANCOMYCIN 1,000 MG in SODIUM CHLORIDE 0.9% 250 ML IVPB SCH ×2 (00:08→12:53)
[2022-04-24] MEDS: INSULIN ASPART (NovoLOG) 100 UNIT/ML VIAL SQ SCH ×4 (00:09→17:30)
[2022-04-24 06:24] LABS: Glucose,Whole Blood 136 mg/dL (70-110)
[2022-04-24 08:27] LABS: African American GFR (CKD) >90 (>60 ml/min/1.73 sqM); Anion Gap 10 mmol/L; Blood Urea Nitrogen 57 mg/dL (9-20); Carbon Dioxide 33 mmol/L (22-30); Chloride 96 mmol/L (98-107); Glucose 145 mg/dL (74-99); Non-African American GFR(CKD) 84 (>60 ml/min/1.73 sqM); Potassium 4.3 mmol/L (3.5-5.1); Sodium 139 mmol/L (137-145)
[2022-04-24] MEDS: IPRATROPIUM-ALBUTEROL 3 ML NEB INHALATION SCH ×4 (08:35→19:41)
[2022-04-24] MEDS: BUDESONIDE 1 MG/2 ML NEBU INHALATION SCH ×2 (08:35→19:41)
[2022-04-24] MEDS: FORMOTEROL FUMARATE 20 MCG/2 ML NEBU INHALATION SCH ×2 (08:35→19:53)
[2022-04-24] MEDS: ERTAPENEM 1 GM in SODIUM CHLORIDE 0.9% 50 ML IVPB SCH (10:05)
[2022-04-24] MEDS: FAMOTIDINE 20 MG/2 ML VIAL IV SCH (10:05)
[2022-04-24] MEDS: LEVOTHYROXINE 75 MCG TAB PEG/G-TUBE SCH (10:06)
[2022-04-24] MEDS: HEPARIN SODIUM,PORCINE/PF 5,000 UNIT/0.5 ML SYRINGE SQ SCH ×2 (10:06→21:03)
[2022-04-24] MEDS: LOSARTAN 25 MG TAB PO SCH (10:06)
[2022-04-24] MEDS: ASPIRIN 81 MG PEG/G-TUBE SCH (10:06)
[2022-04-24 11:54] LABS: Glucose,Whole Blood 107 mg/dL (70-110)
--- NOTE | 2022-04-24 12:59 | P.PN ---
Subjective Progress Note Date: 04/24/22 On today's evaluation of , seeing the patient for a follow-up. The patient is sent and frail. The patient otherwise doing well. The patient is only on 3 L of oxygen by nasal cannula. Cough and congestion has subsided. The patient was septic at a time of admission and he developed an acute hypoxic respiratory failure due to bacterial pneumonia and the cultures were positive for Klebsiella and MRSA. The patient was treated with a combination of IV Invanz and vancomycin. There is obvious improvement in the pool calcitonin level. The patient continues to receive enteral feeding for nutritional support as the patient has previous history of radical neck dissection and treatment of pharyngeal/tonsillar cancer with radiation and subsequent chemotherapy. On today's evaluation, his blood work essentially stable and the patient has normal BUN and creatinine. Normal electrolytes. No altered mentation. No fever or chills. No other significant events over the past 24 hours. Objective - Vital Signs Vital signs: Vital Signs Temp 97.6 F 04/24/22 08:00 Pulse 90 04/24/22 12:28 Resp 18 04/24/22 08:00 BP 128/78 04/24/22 08:00 Pulse Ox 96 04/24/22 08:35 FiO2 60 04/18/22 14:43 Intake & Output 04/23/22 04/24/22 04/24/22 18:59 06:59 18:59 Intake Total 900 440 Output Total 300 325 Balance -300 575 440 Weight 60.5 kg Intake: IV 100 .9 10 mL 100 Intake, IV Titration 250 Amount Vancomycin 1,000 mg In 250 Sodium Chloride 0.9% 250 ml @ 125 mls/hr IVPB Q12HR@0000,1200 [facility] Rx#: [id number] Tube Feeding 550 440 Output: Urine 300 325 Other: Voiding Method Indwelling Catheter Indwelling Catheter Indwelling Catheter - Exam No acute distress, oriented 3. Currently on 3 L nasal cannula. The patient's senna. The patient has no labored breathing at this point in time. The patient is doing well and he has no signs of any respiratory distress. HEENT examination is grossly unremarkable. Surgical changes are obvious in his neck along with some radiation related skin changes. Neck supple. Full range of motion. No adenopathy thyromegaly or neck vein distention. Scarring, from previous surgery and radiation is noted. Cardiovascular examination reveals regular rhythm rate. S1-S2 normal. No S3 or S4. No discernible murmur noted. Heart sounds are distant. Lungs reveal improved bilateral breath sounds. Scattered rhonchi are noted. No wheezes or crackles. Breath sounds equal bilaterally. Abdomen soft bowel sounds are heard. No masses or tenderness. PEG tube is noted. No abdominal distention.Abdominal exam revealed normal bowel sounds. The abdomen was soft, non-tender, and without masses, organomegaly, or appreciable enlargement of the abdominal aorta. Extremities are intact. No cyanosis clubbing or edema. Examination of the skin revealed no evidence of significant rashes, suspicious appearing nevi or other concerning lesions. Neurologic examination is brief but nonfocal. - Labs CBC & Chem 7: 04/22/22 09:05 04/24/22 07:21 Labs: Abnormal Lab Results - Last 24 Hours (Table) 04/23/22 04/23/22 04/23/22 Range/Units 11:58 16:31 20:35 Chloride 95 L (98-107) mmol/L Carbon Dioxide 34 H (22-30) mmol/L BUN 60 H (9-20) mg/dL Glucose 141 H (74-99) mg/dL POC Glucose (mg/dL) 132 H 172 H (70-110) mg/dL 04/24/22 04/24/22 04/24/22 Range/Units 00:03 06:23 07:21 Chloride 96 L (98-107) mmol/L Carbon Dioxide 33 H (22-30) mmol/L BUN 57 H (9-20) mg/dL Glucose 145 H (74-99) mg/dL POC Glucose (mg/dL) 123 H 136 H (70-110) mg/dL Microbiology - Last 24 Hours (Table) 04/21/22 13:10 Blood Culture - Preliminary Blood No Growth after 48 hours Assessment and Plan Plan: Acute hypoxemic respiratory failure, which may relate interstitial edema and/or interstitial pneumonia. Bacterial pneumonia, secondary to Klebsiella pneumoniae as well as methicillin-resistant staph aureus. Clinically improved and the patient is currently on 3 L of oxygen by nasal cannula. There is also improvement in the procalcitonin level which is showing obvious declining trend Acute leukocytosis, improving and otherwise echo results 11.9 Bacteremia secondary to Haemophilus influenzae, culture was positive on 04/17/2022 History of CAD, previous bypass grafting, 2017. Status post radical neck dissection for pharyngeal/tonsillar cancer, 2005, with subsequent chemoradiation. History of CVA. History of hypertension. History of hyperlipidemia. History of pneumonia. Hypothyroidism. Gastroesophageal reflux disease. Stage II chronic kidney disease. Multiple other medical problems and comorbidities. Plan: Continue current antibiotic coverage Patient is currently on a combination IV Invanz and vancomycin The pro-calcitonin level is improving and the most recent chest x-ray shows a stable left lower lobe atelectasis with volume loss without any acute abnorma lities. Discontinue the IV Solu-Medrol Continue enteral feeding for nutritional support We'll continue to follow
[2022-04-24] MEDS ORDERED: LIDOCAINE 1% INJ 10MG/ML (30 ML VIAL-PF) SQ ONE (14:00)
--- NOTE | 2022-04-24 15:55 | P.PN ---
Subjective Progress Note Date: 04/24/22 This is a pleasant 76 year male who presents with progressive dyspnea with cough and sputum production. Sputum culture was found to be positive for MRSA with ESBL, Blood culture positive for haemophilius influenzae and antibiotics were adjusted to IV vancomycin and IV Invanz. Today patient reports a decrease in sputum production. His wheezing has also improved. 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 Patient is wondering about resuming pleasure feeds, conversation had at bedside with family and patient about the risk for aspiration and wound recommend to continue with NPO status. He was also started on Remeron back in July for an appetite stimulant which has been currently placed on hold patient does report trouble sleeping. Patient will resume Remeron at a lower dose at bedtime. Magnesium today 1.7. 04/23/2022 Patient evaluated sitting up in chair with spouse at bedside. States he is breathing easier today, lungs are clear. Continues on 3L nasal cannula which is what he wears at home. Started on losartan today for hypertension, patient did state he took amlodipine in the past. Blood pressure has improved down to 128/83. Repeat blood culture negative so far. Last night patient had issues with his tube feedings, states he had alot of residuals and the tube feed was turned off for a while. Today there is no residual and he is tolerating well. Continues with significant hoarseness to voice, he is strict NPO due to high risk for aspiration. Labs today have improved. Procalcitonin down to 2.57. Patient had repeat chest xray today showing stable left lower lobe atelectasis with left mediastinum shift. Patient is pending PICC line placement for discharge. 04/24/2022 Patient reports today feeling well, and also reports sleeping well last night. States cough is improving, lungs are clear. He is scheduled to undergo PICC Line today. Continues on 3L nasal cannula. Blood pressure improved on losartan. Repeat blood culture negative so far. Steroids discontinued. Arrangements are being made for outpatient antibiotics, tentative plan for discharge home tomorrow. Plan of care discussed with at bedside today. Review of Systems Constitutional: Denied any fatigue denied any fever. Cardio vascular: denied any chest pain, palpitations Gastrointestinal: denied any nausea, vomiting, diarrhea Pulmonary: Reports some shortness of breath with exertion, dry cough. Neurologic denied any new focal deficits All inpatient medications were reviewed and appropriate changes in these medications as dictated in the interval history and assessment and plan. PHYSICAL EXAMINATION: GENERAL: The patient is alert and oriented x3, not in any acute distress. Well developed, well nourished. HEENT: Pupils are round and equally reacting to light. EOMI. No scleral icterus. No conjunctival pallor. Normocephalic, atraumatic. No pharyngeal erythema. No thyromegaly. CARDIOVASCULAR: S1 and S2 present. No murmurs, rubs, or gallops. PULMONARY: Lungs are clear, diminished bases ABDOMEN: Soft, nontender, nondistended, normoactive bowel sounds. No palpable organomegaly. MUSCULOSKELETAL: No joint swelling or deformity. EXTREMITIES: No cyanosis, clubbing, or pedal edema. NEUROLOGICAL: Gross neurological examination did not reveal any focal deficits. SKIN: No rashes. Sacrum is nonblanchable and reddened, no open areas. PEG tube site in tact. 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 Dr. Sandra MD I have performed a history and physical examination and medical decision making of this patient, discussed the same with the dictator, and agree with the dictators assessment and plan as written, documented as a scribe. Based on total visit time, I have performed more than 50% of this visit. Objective - Vital Signs Vital signs: Vital Signs Temp 97.9 F 04/24/22 12:00 Pulse 90 04/24/22 12:28 Resp 18 04/24/22 12:00 BP 156/69 04/24/22 12:00 Pulse Ox 93 L 04/24/22 12:00 FiO2 60 04/18/22 14:43 Intake & Output 04/23/22 04/24/22 04/24/22 18:59 06:59 18:59 Intake Total 900 660 Output Total 300 325 Balance -300 575 660 Weight 60.5 kg Intake: IV 100 .9 10 mL 100 Intake, IV Titration 250 Amount Vancomycin 1,000 mg In 250 Sodium Chloride 0.9% 250 ml @ 125 mls/hr IVPB Q12HR@0000,1200 [facility] Rx#: [id number] Tube Feeding 550 660 Output: Urine 300 325 Other: Voiding Method Indwelling Catheter Indwelling Catheter Indwelling Catheter - Labs CBC & Chem 7: 04/22/22 09:05 04/24/22 07:21 Labs: Abnormal Lab Results - Last 24 Hours (Table) 04/23/22 04/23/22 04/24/22 Range/Units 16:31 20:35 00:03 Chloride (98-107) mmol/L Carbon Dioxide (22-30) mmol/L BUN (9-20) mg/dL Glucose (74-99) mg/dL POC Glucose (mg/dL) 132 H 172 H 123 H (70-110) mg/dL 04/24/22 04/24/22 Range/Units 06:23 07:21 Chloride 96 L (98-107) mmol/L Carbon Dioxide 33 H (22-30) mmol/L BUN 57 H (9-20) mg/dL Glucose 145 H (74-99) mg/dL POC Glucose (mg/dL) 136 H (70-110) mg/dL Microbiology - Last 24 Hours (Table) 04/21/22 13:10 Blood Culture - Preliminary Blood No Growth after 72 hours Assessment and Plan Time with Patient: Less than 30
[2022-04-24 16:20] LABS: Glucose,Whole Blood 119 mg/dL (70-110)
[2022-04-24] MEDS: ATORVASTATIN 20 MG TAB PEG/G-TUBE SCH (17:34)
[2022-04-24 20:04] LABS: Glucose,Whole Blood 102 mg/dL (70-110)
[2022-04-24] MEDS: MIRTAZAPINE 15 MG TAB PEG/G-TUBE SCH (21:03)
--- NOTE | 2022-04-24 21:31 | P.PN ---
Subjective Progress Note Date: 04/24/22 Principal diagnosis: Pneumonia and bacteremia Patient is a 76-year-old male with a past medical history significant for tonsillopharyngeal cancer status post chemoradiation patient did have PEG tube for feeding he also history of COPD CVA hypertension hyperlipidemia history of recurrent aspiration pneumonia patient presented to hospital last night for evaluation of increasing shortness of breath, patient has been diagnosed with a pneumonia now with evidence of gram-negative bacteremia. on today's evaluation that is a 04/24/2022, the patient remains to be afebrile, the patient is breathing comfortably on 3 L nasal cannula, the patient cough has decreased in intensity and not bringing up any sputum, the patient denies having any nausea and vomiting no abdominal pain and no diarrhea Objective - Vital Signs Vital signs: Vital Signs Temp 97.6 F 04/24/22 08:00 Pulse 92 04/24/22 08:56 Resp 18 04/24/22 08:00 BP 128/78 04/24/22 08:00 Pulse Ox 96 04/24/22 08:35 FiO2 60 04/18/22 14:43 Intake & Output 04/23/22 04/24/22 04/24/22 18:59 06:59 18:59 Intake Total 900 440 Output Total 300 325 Balance -300 575 440 Intake: IV 100 .9 10 mL 100 Intake, IV Titration 250 Amount Vancomycin 1,000 mg In 250 Sodium Chloride 0.9% 250 ml @ 125 mls/hr IVPB Q12HR@0000,1200 [facility] Rx#: [id number] Tube Feeding 550 440 Output: Urine 300 325 Other: Voiding Method Indwelling Catheter Indwelling Catheter Indwelling Catheter - Exam GENERAL DESCRIPTION: An elderly male lying in bed in no distress RESPIRATORY SYSTEM: Unlabored breathing , decreased intensity of breath sounds, no wheeze HEART: S1 S2 regular rate and rhythm , ABDOMEN: Soft , no tenderness EXTREMITIES: No edema feet - Labs CBC & Chem 7: 04/22/22 09:05 04/24/22 07:21 Labs: Abnormal Lab Results - Last 24 Hours (Table) 04/23/22 04/23/22 04/23/22 Range/Units 11:36 11:58 16:31 Chloride 95 L (98-107) mmol/L Carbon Dioxide 34 H (22-30) mmol/L BUN 60 H (9-20) mg/dL Glucose 141 H (74-99) mg/dL POC Glucose (mg/dL) 137 H 132 H (70-110) mg/dL 04/23/22 04/24/22 04/24/22 Range/Units 20:35 00:03 06:23 Chloride (98-107) mmol/L Carbon Dioxide (22-30) mmol/L BUN (9-20) mg/dL Glucose (74-99) mg/dL POC Glucose (mg/dL) 172 H 123 H 136 H (70-110) mg/dL 04/24/22 Range/Units 07:21 Chloride 96 L (98-107) mmol/L Carbon Dioxide 33 H (22-30) mmol/L BUN 57 H (9-20) mg/dL Glucose 145 H (74-99) mg/dL POC Glucose (mg/dL) (70-110) mg/dL Microbiology - Last 24 Hours (Table) 04/21/22 13:10 Blood Culture - Preliminary Blood No Growth after 48 hours Assessment and Plan (1) Aspiration pneumonia Current Visit: Yes Status: Acute Code(s): J69.0 - PNEUMONITIS DUE TO INHALATION OF FOOD AND VOMIT SNOMED Code(s): 943306321 Plan: 1patient presented to hospital with sepsis and respiratory have fever elevated white count hypoxemia predominantly respiratory symptoms concerning likely for pneumonia questionable aspiration etiology. 2blood cultures are growing Haemophilus influenzae and sputum culture grew MRSA and ESBL Klebsiella repeat blood cultures 04/21/2022 has been negative 3patient seemed to have shown clinical improvement and will continue with vancomycin and Invanz and plan will be for total of 2 weeks of antibiotic therapy Plan of care was discussed in detail with the on the phone Time with Patient: Less than 30
[2022-04-25 00:47] LABS: Glucose,Whole Blood 114 mg/dL (70-110)
[2022-04-25] MEDS: VANCOMYCIN 1,000 MG in SODIUM CHLORIDE 0.9% 250 ML IVPB SCH ×2 (00:48→11:45)
[2022-04-25] MEDS: INSULIN ASPART (NovoLOG) 100 UNIT/ML VIAL SQ SCH ×4 (00:49→17:09)
[2022-04-25 06:10] LABS: Glucose,Whole Blood 77 mg/dL (70-110)
[2022-04-25] MEDS: BUDESONIDE 1 MG/2 ML NEBU INHALATION SCH ×2 (08:15→19:20)
[2022-04-25] MEDS: IPRATROPIUM-ALBUTEROL 3 ML NEB INHALATION SCH ×4 (08:15→19:20)
[2022-04-25] MEDS: FORMOTEROL FUMARATE 20 MCG/2 ML NEBU INHALATION SCH ×2 (08:15→19:20)
[2022-04-25] MEDS: HEPARIN SODIUM,PORCINE/PF 5,000 UNIT/0.5 ML SYRINGE SQ SCH ×2 (09:22→21:43)
[2022-04-25] MEDS: LEVOTHYROXINE 75 MCG TAB PEG/G-TUBE SCH (09:22)
[2022-04-25] MEDS: ASPIRIN 81 MG PEG/G-TUBE SCH (09:22)
[2022-04-25] MEDS: LOSARTAN 25 MG TAB PO SCH (09:22)
[2022-04-25] MEDS: ERTAPENEM 1 GM in SODIUM CHLORIDE 0.9% 50 ML IVPB SCH (09:23)
[2022-04-25] MEDS: FAMOTIDINE 20 MG/2 ML VIAL IV SCH (09:23)
--- NOTE | 2022-04-25 09:53 | IR ---
PICC LINE PLACEMENT: HISTORY: Infection requiring long-term antibiotic therapy PROCEDURE: Ultrasound and fluoroscopic guidance of PICC line placement. COMPLICATIONS: None ANESTHESIA: 1. 1% Lidocaine locally. FINDINGS/TECHNIQUE: The procedure was explained to the patient. The risks, complications, benefits and alternatives were discussed and any questions were answered. Informed consent was obtained. The patient was placed supine on the fluoroscopic table and prepped and draped in the usual sterile fash ion. Utilizing a 21 gauge needle and sonographic and fluoroscopic guidance, access in the left basi lic vein was achieved and there is placement of a 0.018 guidewire. The vein is patent. A 4-F sheath was placed over the guidewire. The guidewire and dilator were removed and a 4-F. PICC line was plac ed through the sheath with the tip at the level of the SVC. The sheath was removed, the catheter was flushed and sutured into position. The patient was stable throughout the procedure and remained sta ble upon discharge from the Department of Radiology. The vein puncture was patent under ultrasound. A steinberg scale image was obtained to document patency of the vein punctured. All elements of the maximal barrier technique were utilized. FLUOROSCOPY TIME: 0.3 minutes and 1 images submitted IMPRESSION: Successful PICC line placement under ultrasound and fluoroscopic guidance.
[2022-04-25 10:39] LABS: African American GFR (CKD) >90 (>60 ml/min/1.73 sqM); Non-African American GFR(CKD) 84 (>60 ml/min/1.73 sqM)
[2022-04-25] MEDS ORDERED: VANCOMYCIN TROUGH DUE 1 EACH MISC MISCELLANE ONE (11:00)
[2022-04-25 11:40] LABS: Glucose,Whole Blood 73 mg/dL (70-110)
[2022-04-25] MEDS ORDERED: VANCOMYCIN IV PER PHARMACY 1 EACH MISC MISCELLANE PRN (12:14)
--- NOTE | 2022-04-25 12:26 | P.PN ---
Subjective Progress Note Date: 04/25/22 On today's evaluation of , seeing the patient for a follow-up. The patient is sent and frail. The patient otherwise doing well. The patient is only on 3 L of oxygen by nasal cannula. Cough and congestion has subsided. The patient was septic at a time of admission and he developed an acute hypoxic respiratory failure due to bacterial pneumonia and the cultures were positive for Klebsiella and MRSA. The patient was treated with a combination of IV Invanz and vancomycin. There is obvious improvement in the pool calcitonin level. The patient continues to receive enteral feeding for nutritional support as the patient has previous history of radical neck dissection and treatment of pharyngeal/tonsillar cancer with radiation and subsequent chemotherapy. On today's evaluation, his blood work essentially stable and the patient has normal BUN and creatinine. Normal electrolytes. No altered mentation. No fever or chills. No other significant events over the past 24 hours. 04/25/2022, the patient remains on IV antibiotics. The patient had a PICC line inserted in the right upper extremity and the patient is currently being prepared for outpatient treatment. The patient had pneumonia with acute hypoxic respiratory failure and the patient has sputum sample positive for Klebsiella pneumoniae and MRSA and the patient remains on a combination of IV Invanz and vancomycin. The patient is awaiting outpatient arrangements for antibiotic use. He is still on 3 L. No nausea or vomiting. He continues to receive enteral feeding for nutritional support. No nausea. No vomiting or diarrhea and no abdominal pain. No other significant events overnight. The patient seems to be quite stable at this point in time. Objective - Vital Signs Vital signs: Vital Signs Temp 97.5 F L 04/25/22 09:18 Pulse 88 04/25/22 11:55 Resp 16 04/25/22 10:47 BP 104/60 04/25/22 09:18 Pulse Ox 96 04/25/22 09:18 FiO2 60 04/18/22 14:43 Intake & Output 04/24/22 04/25/22 04/25/22 18:59 06:59 18:59 Intake Total 880 660 220 Balance 880 660 220 Weight 60.5 kg Intake: Tube Feeding 880 660 220 Other: Voiding Method Indwelling Catheter Indwelling Catheter Indwelling Catheter - Exam No acute distress, oriented 3. Currently on 3 L nasal cannula. The patient's senna. The patient has no labored breathing at this point in time. The patient is doing well and he has no signs of any respiratory distress. HEENT examination is grossly unremarkable. Surgical changes are obvious in his neck along with some radiation related skin changes. Neck supple. Full range of motion. No adenopathy thyromegaly or neck vein distention. Scarring, from previous surgery and radiation is noted. Cardiovascular examination reveals regular rhythm rate. S1-S2 normal. No S3 or S4. No discernible murmur noted. Heart sounds are distant. Lungs reveal improved bilateral breath sounds. Scattered rhonchi are noted. No wheezes or crackles. Breath sounds equal bilaterally. Abdomen soft bowel sounds are heard. No masses or tenderness. PEG tube is noted. No abdominal distention.Abdominal exam revealed normal bowel sounds. The abdomen was soft, non-tender, and without masses, organomegaly, or appreciable enlargement of the abdominal aorta. Extremities are intact. No cyanosis clubbing or edema. Examination of the skin revealed no evidence of significant rashes, suspicious appearing nevi or other concerning lesions. Neurologic examination is brief but nonfocal. - Labs CBC & Chem 7: 04/22/22 09:05 04/25/22 10:05 Labs: Abnormal Lab Results - Last 24 Hours (Table) 04/24/22 04/25/22 Range/Units 16:18 00:46 POC Glucose (mg/dL) 119 H 114 H (70-110) mg/dL Microbiology - Last 24 Hours (Table) 04/21/22 13:10 Blood Culture - Preliminary Blood No Growth after 72 hours Assessment and Plan Plan: Acute hypoxemic respiratory failure, which may relate interstitial edema and/or interstitial pneumonia. Bacterial pneumonia, secondary to Klebsiella pneumoniae as well as methicillin-resistant staph aureus. Clinically improved and the patient is currently on 3 L of oxygen by nasal cannula. There is also improvement in the procalcitonin level which is showing obvious declining trend. The patient remains on the same antibiotic coverage and the patient underwent a PICC line insertion for outpatient antibiotic use. Acute leukocytosis, improving and otherwise echo results 11.9 Bacteremia secondary to Haemophilus influenzae, culture was positive on 04/17/2022 History of CAD, previous bypass grafting, 2017. Status post radical neck dissection for pharyngeal/tonsillar cancer, 2005, with subsequent chemoradiation. History of CVA. History of hypertension. History of hyperlipidemia. History of pneumonia. Hypothyroidism. Gastroesophageal reflux disease. Stage II chronic kidney disease. Multiple other medical problems and comorbidities. Plan: Continue current antibiotic coverage PICC line was inserted Arrange home antibiotics and IV Invanz and vancomycin Clinically stable and the patient remains on 3 L O2 nasal cannula The pro-calcitonin level is improving and the most recent chest x-ray shows a stable left lower lobe atelectasis with volume loss without any acute abnormalities. Steroids were discontinued yesterday Continue enteral feeding for nutritional support We'll continue to follow
[2022-04-25 12:32] LABS: Glucose,Whole Blood 66 mg/dL (70-110)
[2022-04-25] MEDS ORDERED: DEXTROSE 50% SYRINGE 50 ML IVP PRN (12:41)
[2022-04-25 13:14] LABS: Glucose,Whole Blood 115 mg/dL (70-110)
--- NOTE | 2022-04-25 14:54 | P.DS ---
Providers Date of admission: 04/18/22 00:07 Attending physician: Aleshia Peguero Consults: 04/18/22 00:07 Consult Physician Routine Consulting Provider: Josh Mendoza Consult Reason/Comments: COPD, PNA Do you want consulting provider notified?: Yes 04/18/22 06:53 Consult Physician Stat Consulting Provider: Yaniv Spivey Consult Reason/Comments: Elevated Troponins Do you want consulting provider notified?: Yes 04/18/22 16:48 Consult Physician Routine Consulting Provider: Alex Gunderson Consult Reason/Comments: pna, known to your service Do you want consulting provider notified?: Yes 04/19/22 13:53 Consult Physician Stat Consulting Provider: Alex Gunderson Consult Reason/Comments: Positive blood cultures Do you want consulting provider notified?: Yes Primary care physician: [facility] Course: Diagnosis Acute on chronic hypoxemic respiratory failure secondary to bacterial pneumonia with Klebsiella ESBL/MRSA and continues on IV antibiotics Haemophilius Influenzae Bacteremia Troponin leak secondary to hypoxia Hypertension Hyperlipidemia 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 PICC line in place to right upper extremity. Patient is maintained on 3L nasal cannula which he wears at home. PEG tube with no residuals, tolerating well. He has ice chips at bedside. Hospital Course This is a pleasant 76 year old male with past medical history of pharyngeal cancer post dissection with chemoradiation and also chronic dysphagia, chronic kidney disease, COPD, GERD, hypertension, hyperlipidemia, hypothyroidism, patient is also post coronary artery bypass grafting in 2017. Patient does have PEG tube in place and is maintained on enteral feedings. He has history of aspiration pneumonia and his most recent speech evaluation recommends NPO status no pleasure feeds patient may have ice chips and small sips of water. He is a high risk for aspiration. He presents to the hospital this admission for dyspnea, he reports worsening cough with sputum production. He does wear 3 L nasal cannula at home. Blood pressure fluctuates at home, he does use midodrine as needed and is on sodium tablets at home, patient denies diarrhea, nausea, vomiting, no chest pain. He denies smoking. Patient presents with tachycardia as well as tacyhpnea, heart rate in the 150s and was placed on BiPAP support. He had white count of 14.6, although is maintained on oral prednisone outpatient. Patient was also febrile on admission temperature of 101.5. He had creatinine of 1.3, troponin elevation at 0.07, 0.13, 0.26, proBNP 942. Covid negative, influenza negative. Patient had chest xray completed showing some pulmonary interstitial mild edema which appears new compared to old exam, with underlying COPD. There could be atypical heart failure or acute interstitial pneumonia. EKG showing atrial tachycardia heart rate 131. Patient was admitted to the hospital for pneumonia and pulmonary and infectious disease services placed on consultation. He was started on IV unasyn and did receive IV steroids in the EC, bronchodilators. Patients sputum was found to be positive for ESBL klebsiella pneumoniae, as well as MRSA. Blood cultures are positive for Haemophilus influenzae x 2, which most recent blood culture is negative. Initial procalcitonin level was found to be 27.70 and has now improved to 2.57. Steroids discontinued also. Lung sounds have cleared and patient no long reports dyspnea. Antibiotics adjusted to IV invanz and IV vancomycin and patient received PICC line for outpatient antibiotics. Cardiology evaluated the patient for elevated troponins and echocardiogram was performed which shows EF 55 to 60% with mild mitral, aortic, and tricuspid regurgitation. There is also mildly dilated ascending aorta. Troponin leak most likely from hypoxia and cardiology signed off to follow up outpatient. Patients blood pressure did become elevated into the 160s/90s he received 2 days of losartan 25 mg PO daily and blood pressure dropped into the 90s. Losartan was discontinued. Midodrine had been placed on hold and would recommend to resume midodrine at 5 mg PO TID and keep blood pressure log for PCP follow up. Patient is pending outpatient antibiotic authorization from the [place] and will be discharge home with home care and will follow up with primary care, Dr Brown, Dr Mendoza, special assemblies supervisor Dr LUIGI Avila. 04/25/2022 Patient is sitting up in chair today anxious for discharge home. He denies shortness of breath today, states his cough is also improving. On 3L nasal cannula. He is alert x 3. Denies pain. He is receiving enteral tube feedings without incidence. Peg tube in place. He has received PICC line. Most recent labs showing white count 11.9, hgb 10.5, sodium 139, potassium 4.3, CO2 33, BUN 57, creatinine 0.88, blood glucose 115. Magnesium 2.1. Pending authorization from [place] for outpatient antibiotics. No acute events overnight. Patient is afebrile, heart rate 88, blood pressure 129/73, 99% on 3 L nasal cannula. Pulmonary and infectious disease following. Cardiology signed off. Pending discharge. Total time taken in discharge planning greater than 35 minutes. Please see medication reconciliation for a list of current medication. Thank you for allowing us to participate in the care of this patient. The impression and plan of care has been dictated by Yajaira Cox, Nurse Practitioner as directed. Dr. Sandra MD I have performed a history and physical examination and medical decision making of this patient, discussed the same with the dictator, and agree with the dictators assessment and plan as written, documented as a scribe. Based on total visit time, I have performed more than 50% of this visit. Patient Condition at Discharge: Fair Plan - Discharge Summary Discharge Rx Participant: No New Discharge Prescriptions: New Midodrine [ProAmatine] 5 mg PEG/G-TUBE 0730,1100,2100 #90 tablet Continue Fluticasone Nasal [place] [Flonase Nasal [place]] 2 spr EA NOSTRIL BID Montelukast [Singulair] 10 mg PEG/G-TUBE W/SUPPER Pantoprazole [Protonix] 40 mg PEG/G-TUBE BID Jevity 2.0 Mario 2 can PEG/G-TUBE BID@0730,1600 Budesonide/Formoterol Fumarate [Symbicort 160-4.5 Mcg Inhaler] 2 puff INHALATION RT-BID Mirtazapine [Remeron] 15 mg PEG/G-TUBE HS predniSONE 5 mg PEG/G-TUBE DAILY Ferrous Sulfate [Iron (65 MG Elemental)] 325 mg PEG/G-TUBE DAILY Cetirizine HCl [Zyrtec] 10 mg PEG/G-TUBE DAILY Multivitamins, Thera [Multivitamin (formulary)] 1 tab PEG/G-TUBE DAILY Atorvastatin [Lipitor] 20 mg PEG/G-TUBE W/SUPPER guaiFENesin SYRUP 100MG/5ML [Robitussin] 200 mg PEG/G-TUBE HS Albuterol Inhaler [Ventolin Hfa Inhaler] 2 puff INHALATION RT-QID PRN PRN Reason: Shortness Of Breath Ipratropium-Albuterol Nebulize [Duoneb 0.5 mg-3 mg/3 ml Soln] 3 ml INHALATION RT-QID Aspirin 81 mg PEG/G-TUBE DAILY rOPINIRole HCL [Requip] 0.25 mg PEG/G-TUBE BID Mirabegron [Myrbetriq] 25 mg PEG/G-TUBE HS Levothyroxine Sodium [Synthroid] 150 mcg PEG/G-TUBE DAILY Discontinued Midodrine HCl [ProAmatine] 10 mg PEG/G-TUBE TID@0730,1100,2100 Sodium Chloride Tab 1 gm PEG/G-TUBE BID Discharge Medication List Fluticasone Nasal [place] [Flonase Nasal [place]] 2 spr EA NOSTRIL BID 02/12/17 [History] Albuterol Inhaler [Ventolin Hfa Inhaler] 2 puff INHALATION RT-QID PRN 04/09/21 [History] Ipratropium-Albuterol Nebulize [Duoneb 0.5 mg-3 mg/3 ml Soln] 3 ml INHALATION RT-QID 04/09/21 [History] Montelukast [Singulair] 10 mg PEG/G-TUBE W/SUPPER 04/09/21 [History] Pantoprazole [Protonix] 40 mg PEG/G-TUBE BID 04/09/21 [History] Aspirin 81 mg PEG/G-TUBE DAILY 09/07/21 [History] Budesonide/Formoterol Fumarate [Symbicort 160-4.5 Mcg Inhaler] 2 puff INHALATION RT-BID 09/07/21 [History] Jevity 2.0 Mario 2 can PEG/G-TUBE BID@0730,1600 09/07/21 [History] Mirtazapine [Remeron] 15 mg PEG/G-TUBE HS 09/07/21 [History] predniSONE 5 mg PEG/G-TUBE DAILY 09/07/21 [History] rOPINIRole HCL [Requip] 0.25 mg PEG/G-TUBE BID 09/07/21 [History] Cetirizine HCl [Zyrtec] 10 mg PEG/G-TUBE DAILY 12/14/21 [History] Ferrous Sulfate [Iron (65 MG Elemental)] 325 mg PEG/G-TUBE DAILY 12/14/21 [History] Levothyroxine Sodium [Synthroid] 150 mcg PEG/G-TUBE DAILY 12/14/21 [History] Mirabegron [Myrbetriq] 25 mg PEG/G-TUBE HS 12/14/21 [History] Multivitamins, Thera [Multivitamin (formulary)] 1 tab PEG/G-TUBE DAILY 12/14/21 [History] Atorvastatin [Lipitor] 20 mg PEG/G-TUBE W/SUPPER 04/18/22 [History] guaiFENesin SYRUP 100MG/5ML [Robitussin] 200 mg PEG/G-TUBE HS 04/18/22 [History] Midodrine [ProAmatine] 5 mg PEG/G-TUBE 0730,1100,2100 #90 tablet 04/25/22 [Rx] Follow up Appointment(s)/Referral(s): Josh Mendoza MD [STAFF PHYSICIAN] - 05/08/22 8:30 am Morgan Avila MD [STAFF PHYSICIAN] - 2 Weeks Kenton Brown MD [Primary Care Provider] - 1-2 days Joseline Newton [NON-STAFF] - Ambulatory/Diagnostic Orders: Basic Metabolic Panel [LAB.AMB] Time Frame: 3 Days, Location: None Selected Complete Blood Count w/diff [LAB.AMB] Time Frame: 3 Days, Location: None Selected Magnesium [LAB.AMB] Time Frame: 3 Days, Location: None Selected Activity/Diet/Wound Care/Special Instructions: Pending [facility] for outpatient antibiotics. Monitor blood pressure at home Hold losartan for systolic blood pressure less than 130 Discharge Disposition: HOME WITH HOME HEALTH SERVICES
[2022-04-25] MEDS: ATORVASTATIN 20 MG TAB PEG/G-TUBE SCH (16:29)
[2022-04-25 17:01] LABS: Glucose,Whole Blood 81 mg/dL (70-110)
[2022-04-25] MEDS ORDERED: ARTIFICIAL TEARS-HYPROMELLOSE DROPS 15 ML BTL BOTH EYES PRN (17:03)
[2022-04-25] MEDS ORDERED: MAG HYDROX/AL HYDROX/SIMETH 30 ML CUP PEG/G-TUBE PRN (17:07)
[2022-04-25 18:27] LABS: Glucose,Whole Blood 86 mg/dL (70-110)
[2022-04-25 20:15] LABS: Glucose,Whole Blood 91 mg/dL (70-110)
[2022-04-25] MEDS: MIRTAZAPINE 15 MG TAB PEG/G-TUBE SCH (21:43)
--- NOTE | 2022-04-25 23:08 | P.PN ---
Subjective Progress Note Date: 04/25/22 Principal diagnosis: Pneumonia and bacteremia Patient is a 76-year-old male with a past medical history significant for tonsillopharyngeal cancer status post chemoradiation patient did have PEG tube for feeding he also history of COPD CVA hypertension hyperlipidemia history of recurrent aspiration pneumonia patient presented to hospital last night for evaluation of increasing shortness of breath, patient has been diagnosed with a pneumonia now with evidence of gram-negative bacteremia. on today's evaluation that is a 04/25/2022, the patient continues to be afeb rile, the patient is breathing comfortably on 3 L nasal cannula, the patient cough has decreased in intensity and mostly dry in nature, the patient denies nausea and vomiting no abdominal pain and no diarrhea Objective - Vital Signs Vital signs: Vital Signs Temp 97.5 F L 04/25/22 09:18 Pulse 88 04/25/22 11:55 Resp 16 04/25/22 10:47 BP 104/60 04/25/22 09:18 Pulse Ox 96 04/25/22 09:18 FiO2 60 04/18/22 14:43 Intake & Output 04/24/22 04/25/22 04/25/22 18:59 06:59 18:59 Intake Total 880 660 220 Balance 880 660 220 Weight 60.5 kg Intake: Tube Feeding 880 660 220 Other: Voiding Method Indwelling Catheter Indwelling Catheter Indwelling Catheter - Exam GENERAL DESCRIPTION: An elderly male lying in bed in no distress RESPIRATORY SYSTEM: Unlabored breathing , decreased intensity of breath sounds, no wheeze HEART: S1 S2 regular rate and rhythm , ABDOMEN: Soft , no tenderness EXTREMITIES: No edema feet - Labs CBC & Chem 7: 04/22/22 09:05 04/25/22 10:05 Labs: Abnormal Lab Results - Last 24 Hours (Table) 04/24/22 04/25/22 Range/Units 16:18 00:46 POC Glucose (mg/dL) 119 H 114 H (70-110) mg/dL Microbiology - Last 24 Hours (Table) 04/21/22 13:10 Blood Culture - Preliminary Blood No Growth after 72 hours Assessment and Plan (1) Aspiration pneumonia Current Visit: Yes Status: Acute Code(s): J69.0 - PNEUMONITIS DUE TO INHALATION OF FOOD AND VOMIT SNOMED Code(s): 369651727 Plan: 1patient presented to hospital with sepsis and respiratory have fever elevated white count hypoxemia predominantly respiratory symptoms concerning likely for pneumonia questionable aspiration etiology. 2blood cultures are growing Haemophilus influenzae and sputum culture grew MRSA and ESBL Klebsiella repeat blood cultures 04/21/2022 has been negative 3patient seemed to have shown clinical improvement and will continue with vancomycin and Invanz and plan will be for total of 2 weeks of antibiotic therapy, patient is cleared to get his PICC line discussed with the nurse practitioner for admitting team working on discharge Time with Patient: Less than 30
[2022-04-26 01:20] LABS: Glucose,Whole Blood 93 mg/dL (70-110)
[2022-04-26 06:02] LABS: Glucose,Whole Blood 104 mg/dL (70-110)
[2022-04-26] MEDS: INSULIN ASPART (NovoLOG) 100 UNIT/ML VIAL SQ SCH ×2 (07:47→12:10)
[2022-04-26] MEDS: IPRATROPIUM-ALBUTEROL 3 ML NEB INHALATION SCH ×4 (08:08→20:34)
[2022-04-26] MEDS: FORMOTEROL FUMARATE 20 MCG/2 ML NEBU INHALATION SCH ×2 (08:08→20:34)
[2022-04-26] MEDS: BUDESONIDE 1 MG/2 ML NEBU INHALATION SCH ×2 (08:08→20:35)
[2022-04-26 08:32] LABS: African American GFR (CKD) >90 (>60 ml/min/1.73 sqM); Anion Gap 5 mmol/L; Blood Urea Nitrogen 47 mg/dL (9-20); Calcium 8.8 mg/dL (8.4-10.2); Carbon Dioxide 35 mmol/L (22-30); Chloride 98 mmol/L (98-107); Glucose 90 mg/dL (74-99); Non-African American GFR(CKD) 83 (>60 ml/min/1.73 sqM); Potassium 3.4 mmol/L (3.5-5.1); Sodium 138 mmol/L (137-145)
[2022-04-26 08:37] LABS: Vancomycin,Random 20.7 ug/mL
--- NOTE | 2022-04-26 09:48 | CDI ---
Documentation Clarification Form Date: 04/26/2022 09:25:39 AM From: Supriya Cowan RN, CCDS Admit Date: 04/18/2022 12:07:00 AM Patient Name: Tenzin Burgos Visit Number: [id number] Discharge Date: ATTENTION: The Clinical Documentation Specialists (CDI) and [facility] Coding Staff appreciate your assistance in clarifying documentation. Please respond to the clarification below the line at the bottom and electronically sign. The CDI & [facility] Coding staff will review the response and follow-up if needed. Please note: Queries are made part of the Legal Health Record. If you have any questions, please contact the author of this message via ITS. Dr. Shanti Flores There is documentation of stage 1 sacral pressure injury was documented in the progress notes starting on 04/22/22 and patient was admitted on 04/18/22. Additional clarification is requested. History/Risk Factors: Tonsil/pharyngeal cancer, CVA, Hypertension CKD stage II Clinical Indicators: 76-year-old male present with history of pharyngeal cancer status post radical neck dissection with chronic dysphagia and PEG tube placement. 04/22 progress note. Skin: no rashes. Sacrum is nonblanchable and reddened, no open areas. Treatment: Optifoam and barrier paste to sacrum, Pressure reduction turn Q2, discussed with patient and family Donut cushion Can you please further clarify stage 1 pressure injury? [ x ] Stage 1 pressure injury, present on admission [ ] Stage 1 pressure injury, not present on admission [ ] Other, please specify [ ] Unable to determine (Template Last Revised: October 2020) MTDD
[2022-04-26] MEDS: ERTAPENEM 1 GM in SODIUM CHLORIDE 0.9% 50 ML IVPB SCH (10:00)
[2022-04-26] MEDS: LEVOTHYROXINE 75 MCG TAB PEG/G-TUBE SCH (10:00)
[2022-04-26] MEDS: FAMOTIDINE 20 MG/2 ML VIAL IV SCH (10:00)
[2022-04-26] MEDS: ASPIRIN 81 MG PEG/G-TUBE SCH (10:00)
[2022-04-26] MEDS: HEPARIN SODIUM,PORCINE/PF 5,000 UNIT/0.5 ML SYRINGE SQ SCH ×2 (10:01→21:12)
[2022-04-26] MEDS: ACETAMINOPHEN TAB 325 MG TAB PO PRN (10:07)
--- NOTE | 2022-04-26 10:12 | CDI ---
Documentation Clarification Form Date: 04/26/2022 09:54:11 AM From: Supriya Cowan RN, CCDS Admit Date: 04/18/2022 12:07:00 AM Patient Name: Tenzin Burgos Visit Number: [id number] Discharge Date: ATTENTION: The Clinical Documentation Specialists (CDI) and [facility] Coding Staff appreciate your assistance in clarifying documentation. Please respond to the clarification below the line at the bottom and electronically sign. The CDI & [facility] Coding staff will review the response and follow-up if needed. Please note: Queries are made part of the Legal Health Record. If you have any questions, please contact the author of this message via ITS. Dr. Shanti Flores The Registered Dietitian assessment on 04/24/22 indicates this patient with poor nutrition intake, difficulty swallowing and has a PEG tube for nutrition support. . Based on this information and the findings below, is there an additional diagnosis that is clinically appropriate for this patient? History/Risk Factors: COPD CAD, CKD, CVA, Tonsil/pharyngeal ca, radical neck dissection, chronic dysphagia Clinical Indicators: 76-year-old male with tonsil/pharyngeal cancer present with bacterial pneumonia. He has difficulty swallowing and poor nutrition intake. Nutrition support through PEG tube. 04/19 Labs: bun 38, cr 1.38 RD Consult Assessment: yes Current BMI: 17.6 Insufficient energy intake: yes Weight Loss: Underweight Loss of subcutaneous fat: Yes, Loss of muscle mass: Emaciated, Underweight per nutritional assessment 04/19 & 04/24 Treatment: Tube feeding Two Mario HN, gravity'/bolus 480-720 ml BID Monitor Tub feedings Is there an additional diagnosis that is clinically appropriate for this patient? [ ] Mild Protein-Calorie Malnutrition [ ] Moderate Protein-Calorie Malnutrition [ ] Severe Protein-Calorie Malnutrition [ x ] Other condition, please specify ___No malnutrition [ ] Unable to Determine (Template Last Revised: October 2020) MTDD
--- NOTE | 2022-04-26 12:10 | P.PN ---
Subjective Progress Note Date: 04/26/22 76-year-old male well-known to me. He presented to the emergency room on April 17, at 11 PM, complaining of increasing shortness of breath. He was brought in by EMS. He apparently was so short of breath, he could not really give much of a history. I see him in the emergency room this morning, and trauma room 4. He is currently on BiPAP. He is on BiPAP settings of 14/5 and 60% FiO2. I confirm the fact that the patient is a DO NOT RESUSCITATE/DO NOT INTUBATE patient. He is also getting saline bolus. Saturations are 97%. He has a history of coronary disease, tonsillar/pharyngeal cancer, surgery and chemoradiation, COPD, CVA, GERD, hyperlipidemia, hypertension, ammonia, among other things. He did have a four-vessel bypass back in 2016, as well as a radical neck dissection for his energy [place] cancer, and 2006. He is a former smoker. White count 14.6, hemoglobin 11.6, hematocrit 36.6, and platelet count 420,000 sodium 136, potassium 4.4, chlorides 94, CO2 29, BUN 39, creatinine 1.33. Troponins are 0.079, 0.133 and 0.264. Chest x-ray shows some patchy diffuse interstitial changes, which could relate to interstitial edema or interstitial pneumonia, more right-sided than left-sided. On 04/19/2022 patient seen in follow-up on selective care unit. Patient looks better today, breathing easier, lung sounds reveal some mild scattered wheezes, currently patient is on 10 L of oxygen satting 94%, afebrile, blood pressure is been stable. Patient remains nothing by mouth, he is awaiting a registered dietitian evaluation to restart his tube feedings per the PEG tube. Patient continues on nebulized bronchodilators, IV steroids and Zosyn for antibiotic coverage. His blood and sputum cultures have been sent, sputum culture is pending, preliminary Gram stain showing rare PMNs, rare epithelial cells, many gram-positive cocci and many gram-negative bacilli. Blood cultures are ne gative. Denies any hemoptysis, he is bringing up some green colored phlegm. But overall feels improved. Progress note dated 04/20/2022. The patient appears to be doing much better today. He sitting upright in a chair. He is getting tube feeds at 50 mL an hour. The patient's getting saline at 20 mL an hour. He is on 6 L of oxygen. Today, we will order him a flutter valve. He still has chest congestion when he coughs. He is coughing up yellow/brown phlegm. He does feel better though. White count 17.2, hemoglobin 9.6, hematocrit 30.3, white count 372,000. Sodium 139, potassium 3.9, chlorides 100, CO2 29, BUN 49, and creatinine 1.03. Sputum from April 18 shows gram- negative bacilli and presumptive staph aureus. Blood cultures from April 17 show Haemophilus influenzae. He is currently on Zosyn, although, infectious diseases, is on the case. The patient is seen today 04/21/2022 in follow-up on the cardiac floor. He is currently sitting up in the bedside. Awake and alert in no acute distress. He is on 4 L nasal cannula and maintaining O2 saturations in the 90s. He is receiving tube feedings at 50 MLS per hour. He is breathing a bit easier today. His sputum culture did test positive for MRSA and Klebsiella pneumoniae. Blood cultures are positive for Haemophilus influenza. White count 13.7. Hemoglobin 10.2. Sodium 140. Potassium 3.8. Chloride 90. Bicarb 30. BUN 53. Creatinine 0.99. He is currently on Zosyn. The patient is seen today 04/22/2022 follow-up on the cardiac floor. He is awake and alert in no acute distress. Sitting up in a chair at the bedside. Maintaining good O2 saturations in the mid 90s on 4 L/m per nasal cannula. He's been afebrile. Hemodynamically stable. Sputum culture was positive for Klebsiella pneumoniae and MRSA. Blood culture was positive for Haemophilus influenza. He remains on vancomycin and ertapenem. Continued on bronchodilators and IV Solu-Medrol. Heparin for DVT prophylaxis. The patient is seen today 04/26/2022 in follow-up on the selective care unit. He is currently sitting up in a chair at the bedside. Awake and alert in no acute distress. He did have his PICC line placed. Antibiotics per ID services. He is maintaining good O2 saturations in the 90s on 3 L/m per nasal cannula. Afebrile. Remains on enteral tube feedings for nutritional support. Objective - Vital Signs Vital signs: Vital Signs Temp 97.5 F L 04/26/22 12:00 Pulse 88 04/26/22 12:00 Resp 24 04/26/22 12:00 BP 77/50 04/26/22 12:00 Pulse Ox 93 L 04/26/22 12:00 FiO2 60 04/18/22 14:43 Intake & Output 04/25/22 04/26/22 04/26/22 18:59 06:59 18:59 Intake Total 660 150 Output Total 300 Balance 660 -300 150 Intake: Tube Feeding 660 150 Output: Urine 300 Other: Voiding Method Indwelling Catheter Indwelling Catheter Indwelling Catheter - Exam GENERAL EXAM: Alert, very pleasant 76-year-old gentleman on 3 L nasal cannula, up in a chair at the bedside, comfortable in no apparent distress. HEAD: Normocephalic. EYES: Normal reaction of pupils, equal size. NOSE: Clear with pink turbinates. THROAT: No erythema or exudates. NECK: No masses, no JVD. CHEST: No chest wall deformity. LUNGS: Equal air entry with bilateral rhonchi. CVS: S1 and S2 normal with no audible murmur, regular rhythm. ABDOMEN: PEG tube in place. No hepatosplenomegaly, normal bowel sounds, no guarding or rigidity. SPINE: No scoliosis or deformity SKIN: No rashes CENTRAL NERVOUS SYSTEM: No focal deficits, tone is normal in all 4 extremities. EXTREMITIES: There is no peripheral edema. No clubbing, no cyanosis. Peripheral pulses are intact. - Labs CBC & Chem 7: 04/22/22 09:05 04/26/22 07:37 Labs: Abnormal Lab Results - Last 24 Hours (Table) 04/25/22 04/25/22 04/26/22 Range/Units 12:31 13:13 07:37 Potassium 3.4 L (3.5-5.1) mmol/L Carbon Dioxide 35 H (22-30) mmol/L BUN 47 H (9-20) mg/dL POC Glucose (mg/dL) 66 L 115 H (70-110) mg/dL Microbiology - Last 24 Hours (Table) 04/21/22 13:10 Blood Culture - Preliminary Blood No Growth after 96 hours Assessment and Plan Assessment: Acute hypoxemic respiratory failure, which may relate interstitial edema and/or interstitial pneumonia. Bacterial pneumonia, secondary to MRSA and Klebsiella pneumoniae. Bacteremia secondary to Haemophilus influenzae. History of CAD, previous bypass grafting, 2017. Status post radical neck dissection for pharyngeal/tonsillar cancer, 2006, with subsequent chemoradiation. History of CVA. History of hypertension. History of hyperlipidemia. History of pneumonia. Hypothyroidism. Gastroesophageal reflux disease. Stage II chronic kidney disease. Multiple other medical problems and comorbidities. Plan: The patient was seen and evaluated Medications, labs reviewed PICC line has been placed Antibiotics per ID services Home once cleared by medicine Follow-up in our office in 1 week I have personally seen and examined the patient, performed the documentation and the assessment and plan as written. Number of minutes spent on the visit: 10. I have personally seen and examined the patient and reviewed the documentation. I performed a joint evaluation with the nurse practitioner in this evaluation was done more than 20 minutes. I fully agree with the documentation above and the plan of care.. The patient is stable, possible discharge today. Discharge planning is in progress.
[2022-04-26] MEDS ORDERED: POTASSIUM CHLORIDE ER 20 MEQ TAB.ER PO STA (12:55)
[2022-04-26] MEDS ORDERED: VANCOMYCIN 1,000 MG in SODIUM CHLORIDE 0.9% 250 ML IVPB ONE (13:00)
[2022-04-26] MEDS ORDERED: POTASSIUM BICARBONATE/CIT AC 20 MEQ TABLET.EFF PO STA (16:19)
[2022-04-26] MEDS: ATORVASTATIN 20 MG TAB PEG/G-TUBE SCH (16:51)
--- NOTE | 2022-04-26 18:13 | P.PN ---
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 Presents because of dyspnea. As per patient with family at bedside including state patient has history of aspiration pneumonia several times, last time was discharged on 03/21/2022. He is also complaining of from worsening productive cough, speech looks infected. at home he is 2.5-3 L/m. At baseline and is able to walk by himself. He is known to his blood pressure fluctuates. Also is known borderline blood pressure on midodrine and sodium tablets twice a day. Patient denies diarrhea. No smoking, alcohol or illicit drugs. Edwards catheter was placed in the emergency room. On admission he is tachycardic and tachypneic, heart rate was up to 156 and rhythm rate 27-30, he is on BiPAP machine. A febrile currently but he had fever of 101.5 on admission. Currently he is saturating 93% while on BiPAP, He had elevated white cell count 14.6 although he was on steroids. Hemoglobin 11.6, platelet normal. INR is unremarkable. Creatinine is slightly elevated at 1.3, with baseline 1.0-1.2 Troponin are elevated 0.07, 0.13, 0.26. ProBNP is 942. Coronavirus and influenza virus is a undetected Chest x-ray: There is some pulmonary interstitial mild edema which appears new compared to old exam. There is underlying COPD. This could be a typical heart failure or acute interstitial pneumonia EKG showing ectopic atrial tachycardia at a rate of 131 In the emergency room patient received steroids, Unasyn, ceftriaxone, bronchodilator, Dilaudid, Reglan. 04/19/2022 Patient sitting up in bed fully awake and oriented, he is talking freely and easily. His oxygen requirements went up to 10 L/m however he feels better and more easier for him to breathe with minimal cough and no chest pain. Sputum culture is growing presumptive staph and gram-negative bacilli patient kept on Zosyn and IV Solu-Medrol 60 mg Dietary service to provide instruction on starting PEG tube feeding. [employer] Mdm Architect signs of the case 04/20/2012 Patient is sitting in chair today, reports improvement in his dyspnea however he still tachypneic with some wheezing and coarse crepitation. His saturation is i mproving and requirements to 8 L/m. Hysterectomy and PEG tube feeding at 50 mm per hour He has positive blood culture with Haemophilus influenza and sputum culture with gram-negative bacilli and presumptive staph. Patient currently on Zosyn as well as Solu-Medrol 60 mg area Infectious disease on the case We'll order incentive spirometry 04/21/2022 Patient breathing pattern continue to improve slowly and gradually. He remains and chair since yesterday, oxygen requirements down to 4 L/m today. And he is less wheezing and responding to treatment as well. Still getting PEG tube feedings running at 50 mL/h and looks to the risk that well He has positive sputum culture for Klebsiella and MRSA and blood culture for Haemophilus influenzae Currently covered with Zosyn. He is on Solu-Medrol 60 mg and no IV fluids. Tomorrow Dr. Flores will resume the care of the patient 04/25/2022 Patient is sitting up in chair today anxious for discharge home. He denies shortness of breath today, states his cough is also improving. On 3L nasal cannula. He is alert x 3. Denies pain. He is receiving enteral tube feedings without incidence. Peg tube in place. He has received PICC line. Most recent labs showing white count 11.9, hgb 10.5, sodium 139, potassium 4.3, CO2 33, BUN 57, creatinine 0.88, blood glucose 115. Magnesium 2.1. Pending authorization from [place] for outpatient antibiotics. No acute events overnight. Patient is afebrile, heart rate 88, blood pressure 129/73, 99% on 3 L nasal cannula. Pulmonary and infectious disease following. Cardiology signed off. Pending discharge. I am resuming the care of the patient today 04/26/2022 Patient was sitting in his bed comfortable and in no distress, fully awake and oriented and ask about his discharge expected to be soon. However by they didn 't authorization for his IV antibiotic upon discharge has not been approved by his [facility] insurance provider. PICC line is placed in his right upper extremity. BNP is unremarkable today Patient remains on Invanz and vancomycin. He is not on systemic steroids. He is on home dose of aspirin 81 mg. ID team on the case Discussed with nursing home social worker Objective - Vital Signs Vital signs: Vital Signs Temp 99.0 F 04/26/22 15:50 Pulse 90 04/26/22 15:51 Resp 22 04/26/22 15:50 BP 137/74 04/26/22 15:50 Pulse Ox 95 04/26/22 15:50 FiO2 60 04/18/22 14:43 Intake & Output 04/25/22 04/26/22 04/26/22 18:59 06:59 18:59 Intake Total 660 450 Output Total 300 Balance 660 -300 450 Intake: Tube Feeding 660 450 Output: Urine 300 Other: Voiding Method Indwelling Catheter Indwelling Catheter Indwelling Catheter - Exam GENERAL: The patient is alert and oriented x3, not in any acute distress. Well developed, well nourished. HEENT: Pupils are round and equally reacting to light. EOMI. No scleral icterus. No conjunctival pallor. Normocephalic, atraumatic. No pharyngeal erythema. No thyromegaly. CARDIOVASCULAR: S1 and S2 present. No murmurs, rubs, or gallops. PULMONARY: Chest is clear to auscultation, no crackles. No wheezing -ABDOMEN: Soft, nontender, nondistended, normoactive bowel sounds. No palpable organomegaly. PEG tube in a Place MUSCULOSKELETAL: No joint swelling or deformity. EXTREMITIES: No cyanosis, clubbing, or pedal edema. NEUROLOGICAL: Gross neurological examination did not reveal any focal deficits. SKIN: No rashes. no petechiae. - Labs CBC & Chem 7: 04/22/22 09:05 04/26/22 07:37 Labs: Abnormal Lab Results - Last 24 Hours (Table) 04/26/22 Range/Units 07:37 Potassium 3.4 L (3.5-5.1) mmol/L Carbon Dioxide 35 H (22-30) mmol/L BUN 47 H (9-20) mg/dL Microbiology - Last 24 Hours (Table) 04/21/22 13:10 Blood Culture - Preliminary Blood No Growth after 120 hours Assessment and Plan Assessment: Acute healthcare associated pneumonia, with culture growing Klebsiella ESBL/MRSA. Patient has PICC line and plan for outpatient IV antibiotic Acute COPD exacerbation. Resolved Acute on chronic hypoxic respiratory failure. Improved Haemophilus influenza bacteremia sepsis with tachypnea, tachycardia and fever with leukocytosis Elevated troponin Hypertension Hyperlipidemia History of GERD History of coronary artery disease status post CABG History of pharyngeal cancer and dysphagia status post PEG tube placement Chronic kidney disease stage II Hearing difficulty Plan: This is a pleasant 76 years old male who presents with COPD and pneumonia Continue with Invanz and vancomycin ID team on the case Pulmonary consult Continue with PEG tube feeding Patient is medically stable pending insurance approval for his discharge IV antibiotic. Dietary consult Labs and medication were reviewed.. Continue same treatment. Continue with symptomatic treatment. Resume home medication. Monitor lytes and vitals. DVT and GI prophylaxis. Further recommendations as per clinical course of the patient DVT prophylaxis: Subcutaneous heparin GI Prophylaxis: Pepcid Disposition: Home with home care
[2022-04-26] MEDS: MIRTAZAPINE 15 MG TAB PEG/G-TUBE SCH (21:11)
[2022-04-27] MEDS: FORMOTEROL FUMARATE 20 MCG/2 ML NEBU INHALATION SCH ×2 (08:45→20:21)
[2022-04-27] MEDS: BUDESONIDE 1 MG/2 ML NEBU INHALATION SCH ×2 (08:45→20:21)
[2022-04-27] MEDS: IPRATROPIUM-ALBUTEROL 3 ML NEB INHALATION SCH ×4 (08:46→20:21)
[2022-04-27] MEDS: FAMOTIDINE 20 MG/2 ML VIAL IV SCH (09:36)
[2022-04-27] MEDS: ASPIRIN 81 MG PEG/G-TUBE SCH (09:36)
[2022-04-27] MEDS: LEVOTHYROXINE 75 MCG TAB PEG/G-TUBE SCH (09:36)
[2022-04-27] MEDS: HEPARIN SODIUM,PORCINE/PF 5,000 UNIT/0.5 ML SYRINGE SQ SCH ×2 (09:37→20:45)
[2022-04-27] MEDS: ERTAPENEM 1 GM in SODIUM CHLORIDE 0.9% 50 ML IVPB SCH (10:46)
[2022-04-27] MEDS ORDERED: VANCOMYCIN 1,000 MG in SODIUM CHLORIDE 0.9% 250 ML IVPB ONE (12:00)
[2022-04-27] MEDS: ATORVASTATIN 20 MG TAB PEG/G-TUBE SCH (18:45)
--- NOTE | 2022-04-27 19:05 | P.PN ---
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 Presents because of dyspnea. As per patient with family at bedside including state patient has history of aspiration pneumonia several times, last time was discharged on 03/21/2022. He is also complaining of from worsening productive cough, speech looks infected. at home he is 2.5-3 L/m. At baseline and is able to walk by himself. He is known to his blood pressure fluctuates. Also is known borderline blood pressure on midodrine and sodium tablets twice a day. Patient denies diarrhea. No smoking, alcohol or illicit drugs. Edwards catheter was placed in the emergency room. On admission he is tachycardic and tachypneic, heart rate was up to 156 and rhythm rate 27-30, he is on BiPAP machine. A febrile currently but he had fever of 101.5 on admission. Currently he is saturating 93% while on BiPAP, He had elevated white cell count 14.6 although he was on steroids. Hemoglobin 11.6, platelet normal. INR is unremarkable. Creatinine is slightly elevated at 1.3, with baseline 1.0-1.2 Troponin are elevated 0.07, 0.13, 0.26. ProBNP is 942. Coronavirus and influenza virus is a undetected Chest x-ray: There is some pulmonary interstitial mild edema which appears new compared to old exam. There is underlying COPD. This could be a typical heart failure or acute interstitial pneumonia EKG showing ectopic atrial tachycardia at a rate of 131 In the emergency room patient received steroids, Unasyn, ceftriaxone, bronchodilator, Dilaudid, Reglan. 04/19/2022 Patient sitting up in bed fully awake and oriented, he is talking freely and easily. His oxygen requirements went up to 10 L/m however he feels better and more easier for him to breathe with minimal cough and no chest pain. Sputum culture is growing presumptive staph and gram-negative bacilli patient kept on Zosyn and IV Solu-Medrol 60 mg Dietary service to provide instruction on starting PEG tube feeding. Professor Of Art signs of the case 04/20/2012 Patient is sitting in chair today, reports improvement in his dyspnea however he still tachypneic with some wheezing and coarse crepitation. His saturation is i mproving and requirements to 8 L/m. Hysterectomy and PEG tube feeding at 50 mm per hour He has positive blood culture with Haemophilus influenza and sputum culture with gram-negative bacilli and presumptive staph. Patient currently on Zosyn as well as Solu-Medrol 60 mg area Infectious disease on the case We'll order incentive spirometry 04/21/2022 Patient breathing pattern continue to improve slowly and gradually. He remains and chair since yesterday, oxygen requirements down to 4 L/m today. And he is less wheezing and responding to treatment as well. Still getting PEG tube feedings running at 50 mL/h and looks to the risk that well He has positive sputum culture for Klebsiella and MRSA and blood culture for Haemophilus influenzae Currently covered with Zosyn. He is on Solu-Medrol 60 mg and no IV fluids. Tomorrow Dr. Flores will resume the care of the patient 04/25/2022 Patient is sitting up in chair today anxious for discharge home. He denies shortness of breath today, states his cough is also improving. On 3L nasal cannula. He is alert x 3. Denies pain. He is receiving enteral tube feedings without incidence. Peg tube in place. He has received PICC line. Most recent labs showing white count 11.9, hgb 10.5, sodium 139, potassium 4.3, CO2 33, BUN 57, creatinine 0.88, blood glucose 115. Magnesium 2.1. Pending authorization from [place] for outpatient antibiotics. No acute events overnight. Patient is afebrile, heart rate 88, blood pressure 129/73, 99% on 3 L nasal cannula. Pulmonary and infectious disease following. Cardiology signed off. Pending discharge. I am resuming the care of the patient today 04/26/2022 Patient was sitting in his bed comfortable and in no distress, fully awake and oriented and ask about his discharge expected to be soon. However by they didn 't authorization for his IV antibiotic upon discharge has not been approved by his [facility] insurance provider. PICC line is placed in his right upper extremity. BNP is unremarkable today Patient remains on Invanz and vancomycin. He is not on systemic steroids. He is on home dose of aspirin 81 mg. ID team on the case Discussed with social service director 04/27/2022 Patient clinically doing well and stable. He is improved and back to baseline Patient afebrile and vitals are stable as well No labs from today. Potassium is today 3.4 which is been replaced. Repeat BMP and magnesium tomorrow vamp cut out worker on the case for IV antibiotic. Patient currently on IV vancomycin and ertapenem for positive sputum culture for MRSA and ESBL Klebsiella. Also for Haemophilus influenza bacteremia. Objective - Vital Signs Vital signs: Vital Signs Temp 97.7 F 04/27/22 08:13 Pulse 89 04/27/22 09:12 Resp 18 04/27/22 08:13 BP 125/64 04/27/22 08:13 Pulse Ox 96 04/27/22 08:49 FiO2 60 04/18/22 14:43 Intake & Output 04/26/22 04/27/22 04/27/22 18:59 06:59 18:59 Intake Total 450 99 Balance 450 99 Intake: Tube Feeding 450 99 Other: Voiding Method Indwelling Catheter - Exam GENERAL: The patient is alert and oriented x3, not in any acute distress. Well developed, well nourished. HEENT: Pupils are round and equally reacting to light. EOMI. No scleral icterus. No conjunctival pallor. Normocephalic, atraumatic. No pharyngeal erythema. No thyromegaly. CARDIOVASCULAR: S1 and S2 present. No murmurs, rubs, or gallops. PULMONARY: Chest is clear to auscultation, no crackles. No wheezing -ABDOMEN: Soft, nontender, nondistended, normoactive bowel sounds. No palpable organomegaly. PEG tube in a Place MUSCULOSKELETAL: No joint swelling or deformity. EXTREMITIES: No cyanosis, clubbing, or pedal edema. NEUROLOGICAL: Gross neurological examination did not reveal any focal deficits. SKIN: No rashes. no petechiae. - Labs CBC & Chem 7: 04/22/22 09:05 04/26/22 07:37 Labs: Microbiology - Last 24 Hours (Table) 04/21/22 13:10 Blood Culture - Preliminary Blood No Growth after 120 hours Assessment and Plan Assessment: Acute healthcare associated pneumonia, with culture growing Klebsiella ESBL/MRSA. Patient has PICC line and plan for outpatient IV antibiotic Acute COPD exacerbation. Resolved Acute on chronic hypoxic respiratory failure. Improved Haemophilus influenza bacteremia sepsis with tachypnea, tachycardia and fever with leukocytosis Elevated troponin Hypertension Hyperlipidemia History of GERD History of coronary artery disease status post CABG History of pharyngeal cancer and dysphagia status post PEG tube placement Chronic kidney disease stage II Hearing difficulty Plan: This is a pleasant 76 years old male who presents with COPD and pneumonia Continue with Invanz and vancomycin ID team on the case Pulmonary consult Continue with PEG tube feeding Patient is medically stable pending insurance approval for his discharge IV antibiotic. Dietary consult Labs and medication were reviewed.. Continue same treatment. Continue with symptomatic treatment. Resume home medication. Monitor lytes and vitals. DVT and GI prophylaxis. Further recommendations as per clinical course of the patient DVT prophylaxis: Subcutaneous heparin GI Prophylaxis: Pepcid Disposition: Home with home care
[2022-04-27] MEDS: MIRTAZAPINE 15 MG TAB PEG/G-TUBE SCH (20:46)
[2022-04-28 06:50] LABS: African American GFR (CKD) >90 (>60 ml/min/1.73 sqM); Anion Gap 10 mmol/L; Blood Urea Nitrogen 36 mg/dL (9-20); Calcium 8.8 mg/dL (8.4-10.2); Carbon Dioxide 31 mmol/L (22-30); Chloride 95 mmol/L (98-107); Magnesium 1.6 mg/dL (1.6-2.3); Non-African American GFR(CKD) 84 (>60 ml/min/1.73 sqM); Sodium 136 mmol/L (137-145)
[2022-04-28 06:53] LABS: Glucose 45 mg/dL (74-99)
[2022-04-28 06:55] LABS: Vancomycin,Random 17.9 ug/mL
[2022-04-28 07:05] LABS: Glucose,Whole Blood 52 mg/dL (70-110)
[2022-04-28 07:25] LABS: Glucose,Whole Blood 137 mg/dL (70-110)
[2022-04-28] MEDS: FORMOTEROL FUMARATE 20 MCG/2 ML NEBU INHALATION SCH (07:49)
[2022-04-28] MEDS: BUDESONIDE 1 MG/2 ML NEBU INHALATION SCH (07:49)
[2022-04-28] MEDS: IPRATROPIUM-ALBUTEROL 3 ML NEB INHALATION SCH ×2 (07:49→11:25)
--- NOTE | 2022-04-28 08:15 | P.PN ---
Subjective Progress Note Date: 04/26/22 Principal diagnosis: Pneumonia and bacteremia Patient is a 76-year-old male with a past medical history significant for tonsillopharyngeal cancer status post chemoradiation patient did have PEG tube for feeding he also history of COPD CVA hypertension hyperlipidemia history of recurrent aspiration pneumonia patient presented to hospital last night for evaluation of increasing shortness of breath, patient has been diagnosed with a pneumonia now with evidence of gram-negative bacteremia. on today's evaluation that is a 04/26/2022, the patient remains to be afebrile, the patient is breathing comfortably on nasal cannula oxygen, the patient cough has decreased in intensity with the occasional sputum, the patient denies nausea and vomiting no abdominal pain and no diarrhea Objective - Vital Signs Vital signs: Vital Signs Temp 97.5 F L 04/26/22 10:00 Pulse 97 04/26/22 10:00 Resp 20 04/26/22 10:00 BP 101/57 04/26/22 10:00 Pulse Ox 93 L 04/26/22 10:00 FiO2 60 04/18/22 14:43 Intake & Output 04/25/22 04/26/22 04/26/22 18:59 06:59 18:59 Intake Total 660 150 Output Total 300 Balance 660 -300 150 Intake: Tube Feeding 660 150 Output: Urine 300 Other: Voiding Method Indwelling Catheter Indwelling Catheter Indwelling Catheter - Exam GENERAL DESCRIPTION: An elderly male lying in bed in no distress RESPIRATORY SYSTEM: Unlabored breathing , decreased intensity of breath sounds, no wheeze HEART: S1 S2 regular rate and rhythm , ABDOMEN: Soft , no tenderness EXTREMITIES: No edema feet - Labs CBC & Chem 7: 04/22/22 09:05 04/28/22 06:02 Labs: Abnormal Lab Results - Last 24 Hours (Table) 04/25/22 04/25/22 04/26/22 Range/Units 12:31 13:13 07:37 Potassium 3.4 L (3.5-5.1) mmol/L Carbon Dioxide 35 H (22-30) mmol/L BUN 47 H (9-20) mg/dL POC Glucose (mg/dL) 66 L 115 H (70-110) mg/dL Microbiology - Last 24 Hours (Table) 04/21/22 13:10 Blood Culture - Preliminary Blood No Growth after 96 hours Assessment and Plan (1) Aspiration pneumonia Current Visit: Yes Status: Acute Code(s): J69.0 - PNEUMONITIS DUE TO INHALATION OF FOOD AND VOMIT SNOMED Code(s): 651953389 Plan: 1patient presented to hospital with sepsis and respiratory have fever elevated white count hypoxemia predominantly respiratory symptoms concerning likely for pneumonia questionable aspiration etiology. 2blood cultures are growing Haemophilus influenzae and sputum culture grew MRSA and ESBL Klebsiella repeat blood cultures 04/21/2022 has been negative 3patient has shown clinical improvement and will continue with vancomycin and Invanz and plan will be for total of 2 weeks of antibiotic therapy, patient got his PICC line currently waiting for outpatient antibiotic arrangement Time with Patient: Less than 30
--- NOTE | 2022-04-28 08:17 | P.PN ---
Subjective Progress Note Date: 04/27/22 Principal diagnosis: Pneumonia and bacteremia Patient is a 76-year-old male with a past medical history significant for tonsillopharyngeal cancer status post chemoradiation patient did have PEG tube for feeding he also history of COPD CVA hypertension hyperlipidemia history of recurrent aspiration pneumonia patient presented to hospital last night for evaluation of increasing shortness of breath, patient has been diagnosed with a pneumonia now with evidence of gram-negative bacteremia. on today's evaluation that is a 04/27/2022, the patient continues to be afeb rile, the patient is breathing comfortably on nasal cannula oxygen, the patient cough has decreased in intensity mostly dry in nature, the patient denies nausea and vomiting no abdominal pain and no diarrhea, feeling better no new symptoms Objective - Vital Signs Vital signs: Vital Signs Temp 97.7 F 04/27/22 08:13 Pulse 89 04/27/22 09:12 Resp 18 04/27/22 08:13 BP 125/64 04/27/22 08:13 Pulse Ox 96 04/27/22 08:49 FiO2 60 04/18/22 14:43 Intake & Output 04/26/22 04/27/22 04/27/22 18:59 06:59 18:59 Intake Total 450 99 Balance 450 99 Intake: Tube Feeding 450 99 Other: Voiding Method Indwelling Catheter - Exam GENERAL DESCRIPTION: An elderly male lying in bed in no distress RESPIRATORY SYSTEM: Unlabored breathing , decreased intensity of breath sounds HEART: S1 S2 regular rate and rhythm , ABDOMEN: Soft , no tenderness EXTREMITIES: No edema feet - Labs CBC & Chem 7: 04/22/22 09:05 04/28/22 06:02 Labs: Microbiology - Last 24 Hours (Table) 04/21/22 13:10 Blood Culture - Preliminary Blood No Growth after 120 hours Assessment and Plan (1) Aspiration pneumonia Current Visit: Yes Status: Acute Code(s): J69.0 - PNEUMONITIS DUE TO INHALA TION OF FOOD AND VOMIT SNOMED Code(s): 450330028 Plan: 1patient presented to hospital with sepsis and respiratory have fever elevated white count hypoxemia predominantly respiratory symptoms concerning likely for pneumonia questionable aspiration etiology. 2blood cultures grew Haemophilus influenzae and sputum culture grew MRSA and ESBL Klebsiella repeat blood cultures 04/21/2022 has been negative 3patient has shown clinical improvement and is currently being treated with vancomycin and Invanz to finish his 2 weeks of antibiotic therapy, patient is currently waiting for outpatient antibiotic arrangement Time with Patient: Less than 30
[2022-04-28] MEDS: LEVOTHYROXINE 75 MCG TAB PEG/G-TUBE SCH (08:56)
[2022-04-28] MEDS: ASPIRIN 81 MG PEG/G-TUBE SCH (08:56)
[2022-04-28] MEDS: FAMOTIDINE 20 MG/2 ML VIAL IV SCH (08:57)
[2022-04-28] MEDS: HEPARIN SODIUM,PORCINE/PF 5,000 UNIT/0.5 ML SYRINGE SQ SCH (08:57)
[2022-04-28] MEDS ORDERED: VANCOMYCIN 1,000 MG in SODIUM CHLORIDE 0.9% 250 ML IVPB SCH (09:00)
[2022-04-28] MEDS: ERTAPENEM 1 GM in SODIUM CHLORIDE 0.9% 50 ML IVPB SCH (09:45)
[2022-04-28 13:10] VITALS: BP 136/72; PULSE 72; RESP 16; TEMP 97.6
--- NOTE | 2022-04-28 15:05 | P.PN ---
Subjective Progress Note Date: 04/28/22 Principal diagnosis: Pneumonia and bacteremia Patient is a 76-year-old male with a past medical history significant for tonsillopharyngeal cancer status post chemoradiation patient did have PEG tube for feeding he also history of COPD CVA hypertension hyperlipidemia history of recurrent aspiration pneumonia patient presented to hospital last night for evaluation of increasing shortness of breath, patient has been diagnosed with a pneumonia now with evidence of gram-negative bacteremia. on today's evaluation that is a 04/28/2022, the patient denies any fever or chills, the patient is breathing comfortably on nasal cannula oxygen, the patient cough has decreased in intensity mostly dry in nature, the patient denies nausea and vomiting no abdominal pain and no diarrhea, patient seemed very frustrated with the delay Regarding his outpatient IV antibiotic arr angement Objective - Vital Signs Vital signs: Vital Signs Temp 97.6 F 04/28/22 13:09 Pulse 72 04/28/22 13:09 Resp 16 04/28/22 13:09 BP 136/72 04/28/22 13:09 Pulse Ox 97 04/28/22 13:09 FiO2 60 04/18/22 14:43 Intake & Output 04/27/22 04/28/22 04/28/22 18:59 06:59 18:59 Intake Total 0 Output Total 300 Balance -300 Weight 58.5 kg Intake: Tube Feeding 0 Output: Urine 300 - Exam GENERAL DESCRIPTION: An elderly male lying in bed in no distress RESPIRATORY SYSTEM: Unlabored breathing , decreased intensity of breath sounds HEART: S1 S2 regular rate and rhythm , ABDOMEN: Soft , no tenderness EXTREMITIES: No edema feet - Labs CBC & Chem 7: 04/22/22 09:05 04/28/22 06:02 Labs: Abnormal Lab Results - Last 24 Hours (Table) 04/28/22 04/28/22 04/28/22 Range/Units 06:02 07:03 07:23 Sodium 136 L (137-145) mmol/L Chloride 95 L (98-107) mmol/L Carbon Dioxide 31 H (22-30) mmol/L BUN 36 H (9-20) mg/dL Glucose 45 L* (74-99) mg/dL POC Glucose (mg/dL) 52 L 137 H (70-110) mg/dL Microbiology - Last 24 Hours (Table) 04/21/22 13:10 Blood Culture - Final Blood No Growth after 144 hours Assessment and Plan (1) Aspiration pneumonia Current Visit: Yes Status: Acute Code(s): J69.0 - PNEUMONITIS DUE TO INHALATION OF FOOD AND VOMIT SNOMED Code(s): 108764872 Plan: 1patient presented to hospital with sepsis and respiratory have fever elevated white count hypoxemia predominantly respiratory symptoms concerning likely for pneumonia questionable aspiration etiology. 2blood cultures grew Haemophilus influenzae and sputum culture grew MRSA and ESBL Klebsiella repeat blood cultures 04/21/2022 has been negative 3patient has shown clinical improvement and will continue with vancomycin and Invanz to finish his 2 weeks of antibiotic therapy, and close outpatient follow- up Time with Patient: Less than 30
--- NOTE | 2022-04-28 21:46 | P.DS ---
Providers Date of admission: 04/18/22 00:07 Attending physician: Aleshia Peguero Consults: 04/18/22 00:07 Consult Physician Routine Consulting Provider: Josh Mendoza Consult Reason/Comments: COPD, PNA Do you want consulting provider notified?: Yes 04/18/22 06:53 Consult Physician Stat Consulting Provider: Yaniv Spivey Consult Reason/Comments: Elevated Troponins Do you want consulting provider notified?: Yes 04/18/22 16:48 Consult Physician Routine Consulting Provider: Alex Gunderson Consult Reason/Comments: pna, known to your service Do you want consulting provider notified?: Yes 04/19/22 13:53 Consult Physician Stat Consulting Provider: Alex Gunderson Consult Reason/Comments: Positive blood cultures Do you want consulting provider notified?: Yes Primary care physician: Kenton Brown [facility] Course: Diagnosis Acute on chronic hypoxemic respiratory failure secondary to bacterial pneumonia with Klebsiella ESBL/MRSA and continues on IV antibiotics, PICC line in place right upper extremity Haemophilius Influenzae Bacteremia Troponin leak secondary to hypoxia Hypertension Hyperlipidemia 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 PICC line in place to right upper extremity. Patient is maintained on 3L nasal cannula which he wears at home. PEG tube with no residuals, tolerating well. Follow up appointments in place with Dr Mendoza, Dr LUIGI Avila, Dr Brown, and Dr Gunderson. Antibiotics are set up for outpatient with [facility] and will be delivered at 9pm [facility]. Hospital Course This is a pleasant 76 year old male with past medical history of pharyngeal cancer post dissection with chemoradiation and also chronic dysphagia, chronic kidney disease, COPD, GERD, hypertension, hyperlipidemia, hypothyroidism, patient is also post coronary artery bypass grafting in 2017. Patient does have PEG tube in place and is maintained on enteral feedings. He has history of aspiration pneumonia and his most recent speech evaluation recommends NPO status no pleasure feeds patient may have ice chips and small sips of water. He is a high risk for aspiration. He presents to the hospital this admission for dyspnea, he reports worsening cough with sputum production. He does wear 3 L nasal cannula at home. Blood pressure fluctuates at home, he does use midodrine as needed and is on sodium tablets at home, patient denies diarrhea, nausea, vomiting, no chest pain. He denies smoking. Patient presents with tachycardia as well as tacyhpnea, heart rate in the 150s and was placed on BiPAP support. He had white count of 14.6, although is maintained on oral prednisone outpatient. Patient was also febrile on admission temperature of 101.5. He had creatinine of 1.3, troponin elevation at 0.07, 0.13, 0.26, proBNP 942. Covid negative, influenza negative. Patient had chest xray completed showing some pulmonary interstitial mild edema which appears new compared to old exam, with underlying COPD. There could be atypical heart failure or acute interstitial pneumonia. EKG showing atrial tachycardia heart rate 131. Patient was admitted to the hospital for pneumonia and pulmonary and infectious disease services placed on consultation. He was started on IV unasyn and did receive IV steroids in the EC, bronchodilators. Patients sputum was found to be positive for ESBL klebsiella pneumoniae, as well as MRSA. Blood cultures are positive for Haemophilus influenzae x 2, which most recent blood culture is negative. Initial procalcitonin level was found to be 27.70 and has now improved to 2.57. Steroids discontinued also. Lung sounds have cleared and patient no long reports dyspnea. Antibiotics adjusted to IV invanz and IV vancomycin and patient received PICC line for outpatient antibiotics. Cardiology evaluated the patient for elevated troponins and echocardiogram was performed which shows EF 55 to 60% with mild mitral, aortic, and tricuspid regurgitation. There is also mildly dilated ascending aorta. Troponin leak most likely from hypoxia and cardiology signed off to follow up outpatient. Patients blood pressure did become elevated into the 160s/90s he received 2 days of losartan 25 mg PO daily and blood pressure dropped into the 90s. Losartan was discontinued. Midodrine had been placed on hold and would recommend to resume midodrine at 5 mg PO TID and keep blood pressure log for PCP follow up. Patient is pending outpatient antibiotic [facility] and will be discharge home with home care and will follow up with primary care, Dr Brown, Dr Mendoza, punch box tender Dr LUIGI Avila. 04/28/2022 Patient evaluated today sitting up in the chair with spouse at the bedside. He is anticipating discharge today. He was cleared earlier this week however was pending antibiotic insurance authorization through the [facility]. No acute events overnight, the patient denies chest pain, no shortness of breath. He is tolerating PEG tube feedings. He has ice chips at the bedside. Discussed with the patient he is high risk for aspiration and to monitor for signs of aspiration including coughing after ice chips and sips of water. Monitor for increased cough and shortness of breath as well. He has PICC line to right upper extremity in place. He is having bowel movements, denies dysuria. He is using waffle cushion, barrier cream, and optifoam dressing to his sacrum for a stage 1 pressure injury. Patient and educated on importance of turning and repositioning to offload pressure. His lungs are clear today, S1 S2 auscultatated. Abdomen is soft and nontender. Focal neurological exam is negative. Most recent labs showing sodium 126, potassium 4.0, BUN 36, creatinine 0.87, magnesium 1.6. Patient did receive magnesium supplementation and has order for repeat labs on discharge. Discharge on midodrine, stopped blood pressure medications. Patient is afebrile, heart rate 72, blood pressure 136/72, 97% on 3 L nasal cannula. Total time taken in discharge planning greater than 35 minutes. Please see medication reconciliation for a list of current medication. Thank you for allowing us to participate in the care of this patient. The impression and plan of care has been dictated by Yajaira Cox, Nurse Practitioner as directed. Dr. Sandra MD I have performed a history and physical examination and medical decision making of this patient, discussed the same with the dictator, and agree with the dictators assessment and plan as written, documented as a scribe. Based on total visit time, I have performed more than 50% of this visit. Patient Condition at Discharge: Stable Plan - Discharge Summary Discharge Rx Participant: No New Discharge Prescriptions: New Ertapenem [INVanz] 1 gm IVPB DAILY 14 Days #14 each Midodrine [ProAmatine] 5 mg PEG/G-TUBE 0730,1100,2100 #90 tablet Continue Fluticasone Nasal [place] [Flonase Nasal [place]] 2 spr EA NOSTRIL BID Montelukast [Singulair] 10 mg PEG/G-TUBE W/SUPPER Pantoprazole [Protonix] 40 mg PEG/G-TUBE BID Jevity 2.0 Mario 2 can PEG/G-TUBE BID@0730,1600 Budesonide/Formoterol Fumarate [Symbicort 160-4.5 Mcg Inhaler] 2 puff INHALATION RT-BID Mirtazapine [Remeron] 15 mg PEG/G-TUBE HS predniSONE 5 mg PEG/G-TUBE DAILY Ferrous Sulfate [Iron (65 MG Elemental)] 325 mg PEG/G-TUBE DAILY Cetirizine HCl [Zyrtec] 10 mg PEG/G-TUBE DAILY Multivitamins, Thera [Multivitamin (formulary)] 1 tab PEG/G-TUBE DAILY Atorvastatin [Lipitor] 20 mg PEG/G-TUBE W/SUPPER guaiFENesin SYRUP 100MG/5ML [Robitussin] 200 mg PEG/G-TUBE HS Albuterol Inhaler [Ventolin Hfa Inhaler] 2 puff INHALATION RT-QID PRN PRN Reason: Shortness Of Breath Ipratropium-Albuterol Nebulize [Duoneb 0.5 mg-3 mg/3 ml Soln] 3 ml INHALATION RT-QID Aspirin 81 mg PEG/G-TUBE DAILY rOPINIRole HCL [Requip] 0.25 mg PEG/G-TUBE BID Mirabegron [Myrbetriq] 25 mg PEG/G-TUBE HS Levothyroxine Sodium [Synthroid] 150 mcg PEG/G-TUBE DAILY Discontinued Midodrine HCl [ProAmatine] 10 mg PEG/G-TUBE TID@0730,1100,2100 Sodium Chloride Tab 1 gm PEG/G-TUBE BID Discharge Medication List Fluticasone Nasal [place] [Flonase Nasal [place]] 2 spr EA NOSTRIL BID 02/12/17 [History] Albuterol Inhaler [Ventolin Hfa Inhaler] 2 puff INHALATION RT-QID PRN 04/09/21 [History] Ipratropium-Albuterol Nebulize [Duoneb 0.5 mg-3 mg/3 ml Soln] 3 ml INHALATION RT-QID 04/09/21 [History] Montelukast [Singulair] 10 mg PEG/G-TUBE W/SUPPER 04/09/21 [History] Pantoprazole [Protonix] 40 mg PEG/G-TUBE BID 04/09/21 [History] Aspirin 81 mg PEG/G-TUBE DAILY 09/07/21 [History] Budesonide/Formoterol Fumarate [Symbicort 160-4.5 Mcg Inhaler] 2 puff INHALATION RT-BID 09/07/21 [History] Jevity 2.0 Mario 2 can PEG/G-TUBE BID@0730,1600 09/07/21 [History] Mirtazapine [Remeron] 15 mg PEG/G-TUBE HS 09/07/21 [History] predniSONE 5 mg PEG/G-TUBE DAILY 09/07/21 [History] rOPINIRole HCL [Requip] 0.25 mg PEG/G-TUBE BID 09/07/21 [History] Cetirizine HCl [Zyrtec] 10 mg PEG/G-TUBE DAILY 12/14/21 [History] Ferrous Sulfate [Iron (65 MG Elemental)] 325 mg PEG/G-TUBE DAILY 12/14/21 [History] Levothyroxine Sodium [Synthroid] 150 mcg PEG/G-TUBE DAILY 12/14/21 [History] Mirabegron [Myrbetriq] 25 mg PEG/G-TUBE HS 12/14/21 [History] Multivitamins, Thera [Multivitamin (formulary)] 1 tab PEG/G-TUBE DAILY 12/14/21 [History] Atorvastatin [Lipitor] 20 mg PEG/G-TUBE W/SUPPER 04/18/22 [History] guaiFENesin SYRUP 100MG/5ML [Robitussin] 200 mg PEG/G-TUBE HS 04/18/22 [History] Ertapenem [INVanz] 1 gm IVPB DAILY 14 Days #14 each 04/25/22 [Rx] Midodrine [ProAmatine] 5 mg PEG/G-TUBE 0730,1100,2100 #90 tablet 04/25/22 [Rx] Follow up Appointment(s)/Referral(s): Josh Mendoza MD [STAFF PHYSICIAN] - 05/08/22 8:30 am Morgan Avila MD [STAFF PHYSICIAN] - 2 Weeks (office will call patient with appointment and time ) Kenton Brown MD [Primary Care Provider] - 05/04/22 9:15 am (office request the patient asked have a mask on when coming to the office ) [facility], [NON-STAFF] - As Needed Care,[facility] [NON-STAFF] - Alex Gunderson MD [STAFF PHYSICIAN] - 05/08/22 3:00 pm Ambulatory/Diagnostic Orders: Basic Metabolic Panel [LAB.AMB] Time Frame: 3 Days, Location: None Selected Basic Metabolic Panel [LAB.AMB] Time Frame: 1 Week, Location: None Selected Complete Blood Count w/diff [LAB.AMB] Time Frame: 3 Days, Location: None Selected Magnesium [LAB.AMB] Time Frame: 3 Days, Location: None Selected Patient Instructions/Handouts: Aspiration Pneumonia (DC), PICC (Peripherally Inserted Central Catheter) (DC) Activity/Diet/Wound Care/Special Instructions: Antibiotics to be delivered by 9pm tonight through [facility]: #[phone] IVPB invanz daily for 14 days IVPB vancomycin pharmacy to dose for 14 days Monitor blood pressure at home Losartan has been discontinued on discharge Resume midodrine at 5 mg TID as needed for hypotension If blood pressure is elevated hold, keep log for follow up with PCP Discharge Disposition: HOME WITH HOME HEALTH SERVICES
== END 2022-04-28 15:09 | disposition home health service (06) | DRG 871 ==
LOC: EC 23:00 → 3SCARD 04-18 00:07 → 4SSUR 04-26 23:36
PROVIDERS: ADMIT Hospitalist; ATTEND Hospitalist
PROC: 5A09357 Assistance with Respiratory Ventilation, Less than 24 Consecutive Hours, Continuous Positive Airway Pressure (ICD-10-PCS; principal; 2022-04-17)
PROC: 02HV33Z Insertion of Infusion Device into Superior Vena Cava, Percutaneous Approach (ICD-10-PCS; 2022-04-25)
DX: A41.3 Sepsis due to Hemophilus influenzae (principal); I21.A1 Myocardial infarction type 2; J96.21 Acute and chronic respiratory failure with hypoxia; J69.0 Pneumonitis due to inhalation of food and vomit; J15.0 Pneumonia due to Klebsiella pneumoniae; J15.212 Pneumonia due to Methicillin resistant Staphylococcus aureus; J14 Pneumonia due to Hemophilus influenzae; N17.9 Acute kidney failure, unspecified; J44.1 Chronic obstructive pulmonary disease with (acute) exacerbation; I47.1 Supraventricular tachycardia; J44.0 Chronic obstructive pulmonary disease with (acute) lower respiratory infection; J84.9 Interstitial pulmonary disease, unspecified; J98.11 Atelectasis; I12.9 Hypertensive chronic kidney disease with stage 1 through stage 4 chronic kidney disease, or unspecified chronic kidney disease; E03.9 Hypothyroidism, unspecified; I08.3 Combined rheumatic disorders of mitral, aortic and tricuspid valves; Z95.828 Presence of other vascular implants and grafts; I77.819 Aortic ectasia, unspecified site; L89.151 Pressure ulcer of sacral region, stage 1; R54 Age-related physical debility; Z66 Do not resuscitate; I95.9 Hypotension, unspecified; I25.10 Atherosclerotic heart disease of native coronary artery without angina pectoris; R13.10 Dysphagia, unspecified; E78.5 Hyperlipidemia, unspecified; K21.9 Gastro-esophageal reflux disease without esophagitis; N18.2 Chronic kidney disease, stage 2 (mild); Y95 Nosocomial condition; H91.93 Unspecified hearing loss, bilateral; Z20.822 Contact with and (suspected) exposure to COVID-19; Z79.899 Other long term (current) drug therapy; Z93.1 Gastrostomy status; Z79.82 Long term (current) use of aspirin; Z79.51 Long term (current) use of inhaled steroids; Z79.52 Long term (current) use of systemic steroids; Z79.890 Hormone replacement therapy; Z86.73 Personal history of transient ischemic attack (TIA), and cerebral infarction without residual deficits; Z85.818 Personal history of malignant neoplasm of other sites of lip, oral cavity, and pharynx; Z95.1 Presence of aortocoronary bypass graft; Z97.4 Presence of external hearing-aid; Z87.891 Personal history of nicotine dependence; Z86.010 Personal history of colon polyps; Z98.890 Other specified postprocedural states; Z80.1 Family history of malignant neoplasm of trachea, bronchus and lung; Z81.2 Family history of tobacco abuse and dependence; Z82.49 Family history of ischemic heart disease and other diseases of the circulatory system; Z86.14 Personal history of Methicillin resistant Staphylococcus aureus infection; Z92.21 Personal history of antineoplastic chemotherapy; Z92.3 Personal history of irradiation; Z90.09 Acquired absence of other part of head and neck; Z87.01 Personal history of pneumonia (recurrent)
CPT/HCPCS: 36415; 36573; 71045; 80048; 80053; 80202; 82565; 83036; 83605; 83735; 83880; 84145; 84484; 85025; 85610; 85730; 86140; 87040; 87070; 87077; 87186; 87205; 87502; 87635; 93005; 93306; 94640; 94644; 94660; 94667; 94760; 96361; 96365; 96366; 96367; 96375; 96376; 99291